=== PATIENT | female | born 1960 | race African-American/Black ===

== ENCOUNTER 2016-10-14 08:32 | Emergency (ER) | payer MEDICAID ==
[~2016-10-14] VITALS: Ht 162.6 cm; Wt 55.8 kg
[~2016-10-14 08:32] MED LIST: ALBUTEROL SULF8.5 GM INH; ARAVA10 MG PO; AZITHROMYCIN250 MG ORAL; BENADRYL25 MG PO; CLINDAMYCIN HC300 MG ORAL; CORTISONE14 GM TP; CYCLOBENZAPRINE10 MG ORAL; FOLIC ACID1 MG ORAL; KEFLEX500 MG ORAL; METHOTREXATE2.5 MG PO; NKM; NORCO 5-325 TA1 EACH ORAL; PLAQUENIL200 MG ORAL; QVAR7.3 GM INH; TYLENOL EXTRA500 MG ORAL; VALACYCLOVIR500 MG ORAL
[2016-10-14] MEDS ORDERED: NKM (08:46)
[2016-10-14 08:55] VITALS: BP 167/88
[2016-10-14] MEDS ORDERED: ACETAMINOPHEN-1 EAC1 ORAL (08:57)
[2016-10-14] MEDS ORDERED: COLACE100 MG ORAL (08:57)
[2016-10-14 09:00] VITALS: BP 167/88
[2016-10-14] MEDS ORDERED: Tylenol #3 tab (300mg/30mg) ORAL ONE (09:00)
--- NOTE | 2016-10-14 09:08 | Emergency Room Report ---
History of Present Illness General Chief Complaint: Pain Source: Patient Present Illness HPI 56YOF walk-in with pain to back of right shoulder s/p slip and fall 2 weeks ago. Despite repeated questioning, patient unable to provide specifics of how she fell/landed Denies open wounds, reduced ROM of right shoulder. Denies pain to right elbow, right hand, right wrist Just repeats that her shoulder hurts. States taking ibuprofen without much improvement Cant take "too much T4" or she gets constipated but is requesting [place] Allergies: Coded Allergies: ASPIRIN (Verified Allergy, 10/08/12) PENICILLINS (Verified Allergy, 10/08/12) Patient History Past Medical History: none Past Surgical History: other - Left shoulder replaceemnt Pertinent Family History: none Social History: Denies: smoking, alcohol use, drug use Now: No Immunizations: UTD Reviewed Nursing Documentation: PMH: Agreed, PSxH: Agreed Nursing Documentation-PMH Hx Asthma: Yes - bronchitis Review of Systems All Other Systems: negative except mentioned in HPI Physical Exam Vital Signs Date Time Temp Pulse Resp B/P (MAP) Pulse Ox O2 Delivery O2 Flow Rate FiO2 10/14/16 08:39 97.3 79 22 171/96 100 Room Air Sp02 EP Interpretation: reviewed, normal General Appearance: normal inspection, well appearing, no apparent distress, alert, GCS 15, non-toxic Head: normocephalic, atraumatic Eyes: bilateral eye PERRL, bilateral eye EOMI ENT: normal ENT inspection, hearing grossly normal, normal voice Neck: normal inspection, full range of motion, supple, no bony tend Respiratory: normal inspection, lungs clear, normal breath sounds, no respiratory distress, no retraction, no wheezing Cardiovascular #1: regular rate, rhythm, no edema Gastrointestinal: normal inspection, normal bowel sounds, non tender, soft, no guarding, no hernia Genitourinary: no CVA tenderness Musculoskeletal: normal inspection, back normal, normal range of motion, Collin' s Sign negative, other - Right shoulder: No obvious trauma or deformity. ROM intact. No ttp to right shoulder. 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, motor strength/tone normal, speech normal Psychiatric: normal inspection, judgement/insight normal, mood/affect normal Medical Decision Making Diagnostic Impression: Primary Impression: Chronic pain Qualified Codes: G89.29 - Other chronic pain ER Course Likely chronic pain Low suspicion for acute fracture or dislocation given no ttp, no obvious deformity, ROM intact ?narcotic seeking behavior T#3 given here Rx for same with colace PMD followup DC home Last Vital Signs Date Time Temp Pulse Resp B/P (MAP) Pulse Ox O2 Delivery O2 Flow Rate FiO2 10/14/16 08:39 97.3 79 22 171/96 100 Room Air Status: improved Disposition: HOME, SELF-CARE Condition: Improved Scripts Docusate Sodium* (COLACE*) 100 Mg Capsule 100 MG ORAL TWICE A DAY for 7 Days, #14 CAP Prov: ALKA TIMMONS M.D. 10/14/16 Acetaminophen With Codeine (T#3) (TYLENOL #3 TAB*) Y Tab 1 TAB ORAL Q8H Y for For Pain, #20 TAB Prov: ALKA TIMMONS M.D. 10/14/16 Patient Instructions: Musculoskeletal Pain ALKA TIMMONS M.D. Oct 14, 2016 09:08
== END 2016-10-14 09:18 | disposition home or self-care (01) ==
LOC: EMR 09:00
DX: G89.29 Other chronic pain (principal); M25.511 Pain in right shoulder; Z91.81 History of falling; Z88.0 Allergy status to penicillin; Z88.6 Allergy status to analgesic agent
CPT/HCPCS: 99284

== ENCOUNTER 2016-11-09 09:21 | Emergency (ER) | payer MEDICAID ==
[~2016-11-09] VITALS: Ht 160 cm; Wt 54.4 kg
[~2016-11-09 09:21] MED LIST changes: +ACETAMINOPHEN-1 EAC1 ORAL; +COLACE100 MG ORAL
[2016-11-09 10:05] VITALS: BP 147/79
[2016-11-09] MEDS ORDERED: TYLENOL EXTRA500 MG ORAL (11:19)
[2016-11-09 11:21] VITALS: BP 143/86
[2016-11-09 11:25] VITALS: BP 143/86
--- NOTE | 2016-11-09 11:40 | Emergency Room Report ---
History of Present Illness General Chief Complaint: Laceration Source: Patient Present Illness HPI 56-year-old female presents to ED with laceration over left eyebrow. States yesterday she tripped and fell. Denies LOC. Patient presents with laceration over left eyebrow. States tetanus is up-to-date. States pain is sharp, 8/10, nonradiating. Denies photophobia, blurry vision, nausea or vomiting. Denies neck pain. No other aggravating relieving factors. Denies any other system symptoms Allergies: Coded Allergies: ASPIRIN (Verified Allergy, 10/08/12) PENICILLINS (Verified Allergy, 10/08/12) Patient History Past Medical History: psych hx Past Surgical History: none Pertinent Family History: none Social History: Denies: smoking, alcohol use, drug use Now: No Immunizations: UTD Reviewed Nursing Documentation: PMH: Agreed, PSxH: Agreed Nursing Documentation-PMH Past Medical History: No History, Except For Hx Cardiac Problems: No - Lupus, Arthritis, Syphilis Hx Hypertension: No Hx Pacemaker: No Hx Asthma: Yes - Bronchitis Hx COPD: No Hx Diabetes: No Hx Cancer: No Hx Gastrointestinal Problems: No Hx Dialysis: No History Of Psychiatric Problem: Yes - Depression, Anxiety Hx Neurological Problems: No Hx Cerebrovascular Accident: No Hx Seizures: Yes Review of Systems All Other Systems: negative except mentioned in HPI Physical Exam Vital Signs Date Time Temp Pulse Resp B/P (MAP) Pulse Ox O2 Delivery O2 Flow Rate FiO2 11/09/16 09:30 97.7 91 14 142/84 98 Room Air Sp02 EP Interpretation: reviewed, normal General Appearance: no apparent distress, alert, GCS 15, non-toxic Head: normocephalic, other - 1cm superficial lacertion over L eyebrow ENT: hearing grossly normal, normal pharynx, no angioedema, normal voice Neck: normal inspection, no bony tend Respiratory: normal inspection Cardiovascular #1: normal inspection Gastrointestinal: normal inspection Rectal: deferred Genitourinary: no CVA tenderness Musculoskeletal: normal inspection Neurologic: alert, oriented x3, responsive, motor strength/tone normal, sensory intact, speech normal Psychiatric: normal inspection Skin: normal inspection Lymphatic: normal inspection Procedures Laceration/Wound Repair Laceration/Wound Repair : Consent: Verbal Wound Location: face Wound's Depth, Shape: superficial, linear Wound Explored: clean Betadine Prep?: No Wound Debrided: minimal Wound Repaired With: Dermabond Layer Closure?: No Sterile Dressing Applied?: Yes Splint Applied?: No Sling Applied?: No Patient Tolerated: Well Complications: None Medical Decision Making Diagnostic Impression: Primary Impression: Laceration ER Course Hospital Course 21-year-old M presents to ED s/p laceration above L eyebrow Clinical course Patient placed on stretcher. After initial history and physical I ordered Tylenol. Wound irrigated. Dermabond applied Diagnosis - laceration Stable and discharged to home with prescription for tylenol. wound Care instructions given. Followup with PMD. Return to ED if any signs of infection develop Last Vital Signs Date Time Temp Pulse Resp B/P (MAP) Pulse Ox O2 Delivery O2 Flow Rate FiO2 11/09/16 11:25 98.0 95 20 143/86 100 Room Air Status: improved Disposition: HOME, SELF-CARE Condition: Stable Scripts Acetaminophen* (TYLENOL EXTRA STRENGTH*) 500 Mg Tablet 500 MG ORAL Q8H Y for Prn Headache/Temp > 101, #30 TAB 0 Refills Prov: STEVE GRANDA M.D. 11/09/16 Patient Instructions: Laceration Care, Adult STEVE GRANDA M.D. Nov 09, 2016 11:40
== END 2016-11-09 12:00 | disposition home or self-care (01) ==
LOC: EMR 09:45
DX: S01.112A Laceration without foreign body of left eyelid and periocular area, initial encounter (principal); W01.0XXA Fall on same level from slipping, tripping and stumbling without subsequent striking against object, initial encounter; Y93.9 Activity, unspecified; Y92.9 Unspecified place or not applicable; Z88.6 Allergy status to analgesic agent; Z88.0 Allergy status to penicillin; M32.9 Systemic lupus erythematosus, unspecified; M19.90 Unspecified osteoarthritis, unspecified site; F41.9 Anxiety disorder, unspecified; F32.9 Major depressive disorder, single episode, unspecified
CPT/HCPCS: 12011; 99283; Z7502

== ENCOUNTER 2016-12-01 09:11 | Emergency (ER) | payer MEDICAID ==
[~2016-12-01] VITALS: Ht 160 cm; Wt 48.1 kg
--- NOTE | 2016-12-01 09:31 | Emergency Room Report ---
History of Present Illness General Chief Complaint: Flu Like Symptoms Source: Patient Present Illness HPI 56-year-old female, walked into the emergency room, homeless, presenting with 3 days of subjective fever, cough productive with green sputum, body aches, headache. Denies chest pain. No sick contacts or recent travel. Hasn't been hospitalized in the last 3 months. Allergies: Coded Allergies: ASPIRIN (Verified Allergy, 10/08/12) PENICILLINS (Verified Allergy, 10/08/12) Patient History Past Medical History: see triage record Past Surgical History: none Pertinent Family History: none Reviewed Nursing Documentation: PMH: Agreed, PSxH: Agreed Nursing Documentation-PMH Past Medical History: No History, Except For Hx Cardiac Problems: No - Lupus, Arthritis, Syphilis Hx Hypertension: Yes Hx Pacemaker: No Hx Asthma: Yes - Bronchitis Hx COPD: No Hx Diabetes: No Hx Cancer: No Hx Gastrointestinal Problems: No Hx Dialysis: No Hx Neurological Problems: No Hx Cerebrovascular Accident: No Hx Seizures: Yes Review of Systems All Other Systems: negative except mentioned in HPI Physical Exam Vital Signs Date Time Temp Pulse Resp B/P (MAP) Pulse Ox O2 Delivery O2 Flow Rate FiO2 12/01/16 09:16 98.1 112 26 148/82 100 Room Air Sp02 EP Interpretation: reviewed, normal General Appearance: alert, GCS 15, non-toxic, other - Middle aged female, appears fatigued however speaking complete sentences, nonrespiratory distress, Head: normocephalic, atraumatic Eyes: bilateral eye normal inspection, bilateral eye PERRL, bilateral eye EOMI ENT: normal ENT inspection, normal pharynx, normal voice, moist mucus membranes Neck: normal inspection, full range of motion, supple Respiratory: normal inspection, lungs clear, normal breath sounds, no respiratory distress, no retraction, no wheezing, speaking full sentences, chest symmetrical Cardiovascular #1: normal inspection, regular rate, rhythm, no edema, normal capillary refill Cardiovascular #2: 2+ radial (R), 2+ radial (L) Gastrointestinal: normal inspection, non tender, soft, non-distended, no guarding Musculoskeletal: normal inspection, back normal, normal range of motion, non- tender Neurologic: normal inspection, alert, oriented x3, responsive, 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 CXR obtained - L pneumonia got fluids tylenol 1 dose levaquin in ED VS continue to be stable Disposition: Patient is to be discharged home with a prescription of Levaquin Strict precautions discussed with patient on when to return to the emergency room including hemoptysis, high fevers, chills, SOB, chest pain which may indicate severe illness. Patient is to follow up with their primary care doctor within 5 days. Patient agrees with plan. Please note that this Emergency Department Report was dictated using [employer] attendant technology software, occasionally this can lead to erroneous entry secondary to interpretation by the dictation equipment.. Rhythm Strip EP Interpretation: Yes Rate: 77 Rhythm: NSR, no PVCs, no ectopy Chest X-ray CXR: Ordered: Yes 1 view Indication: Chest pain EP interpretation: Yes Interpretation: hyperinflated lungs, possible L sided infiltrate Impression: COPD, L sided pneumonia Electronically signed by Weston Madsen MD Laboratory Tests Test 12/01/16 10:00 12/01/16 11:00 White Blood Count 13.3 K/UL (4.8-10.8) H Red Blood Count 4.20 M/UL (4.20-5.40) Hemoglobin 12.7 G/DL (12.0-16.0) Hematocrit 40.1 % (37.0-47.0) Mean Corpuscular Volume 95 FL (80-99) Mean Corpuscular Hemoglobin 30.1 PG (27.0-31.0) Mean Corpuscular Hemoglobin Concent 31.5 G/DL (32.0-36.0) L Red Cell Distribution Width 11.7 % (11.6-14.8) Platelet Count 456 K/UL (150-450) H Mean Platelet Volume 7.0 FL (6.5-10.1) Neutrophils (%) (Auto) 80.1 % (45.0-75.0) H Lymphocytes (%) (Auto) 10.5 % (20.0-45.0) L Monocytes (%) (Auto) 8.2 % (1.0-10.0) Eosinophils (%) (Auto) 0.4 % (0.0-3.0) Basophils (%) (Auto) 0.8 % (0.0-2.0) Sodium Level 139 MMOL/L (136-145) Potassium Level 3.8 MMOL/L (3.5-5.1) Chloride Level 105 MMOL/L (98-107) Carbon Dioxide Level 26 MMOL/L (21-32) Anion Gap 9 (5-15) Blood Urea Nitrogen 14 mg/dL (7-18) Creatinine 1.0 MG/DL (0.55-1.30) Estimate Glomerular Filtration Rate > 60 mL/min (>60) Glucose Level 86 MG/DL (74-106) Calcium Level 9.3 MG/DL (8.5-10.1) Total Bilirubin 0.3 MG/DL (0.2-1.0) Aspartate Amino Transferase (AST) 18 U/L (15-37) Alanine Aminotransferase (ALT) 17 U/L (12-78) Alkaline Phosphatase 102 U/L (46-116) Total Protein 8.2 G/DL (6.4-8.2) Albumin 3.0 G/DL (3.4-5.0) L Globulin 5.2 g/dL Albumin/Globulin Ratio 0.6 (1.0-2.7) L Lipase 96 U/L (73-393) Urine Color Pending Urine Appearance Pending Urine pH Pending Urine Specific [place] Pending Urine Protein Pending Urine Glucose (UA) Pending Urine Ketones Pending Urine Occult Blood Pending Urine Nitrite Pending Urine Bilirubin Pending Urine Urobilinogen Pending Urine Leukocyte Esterase Pending Last Vital Signs Date Time Temp Pulse Resp B/P (MAP) Pulse Ox O2 Delivery O2 Flow Rate FiO2 12/01/16 09:16 98.1 112 26 148/82 100 Room Air Disposition: HOME, SELF-CARE Condition: Improved Scripts Levofloxacin* (LEVAQUIN*) 500 Mg Tablet 500 MG ORAL DAILY Y for 7, #7 TAB 0 Refills Prov: Weston Madsen M.D. 12/01/16 Weston Madsen M.D. Dec 01, 2016 09:31
[2016-12-01 10:03] VITALS: BP 142/81
[2016-12-01 10:17] LABS: BASOPHILS % (AUTO) 0.8 % (0.0-2.0); EOSINOPHILS % (AUTO) 0.4 % (0.0-3.0); LYMPHOCYTES % (AUTO) 10.5 % (20.0-45.0); MEAN CORPUSCULAR HEMOGLOBIN 30.1 PG (27.0-31.0); MEAN CORPUSCULAR HGB CONC 31.5 G/DL (32.0-36.0); MEAN CORPUSCULAR VOLUME 95 FL (80-99); MONOCYTES % (AUTO) 8.2 % (1.0-10.0); NEUTROPHILS % (AUTO) 80.1 % (45.0-75.0); PLATELET COUNT 456 K/UL (150-450); RED CELL DISTRIBUTION WIDTH 11.7 % (11.6-14.8); WHITE BLOOD COUNT 13.3 K/UL (4.8-10.8)
[2016-12-01 10:25] LABS: ALANINE AMINOTRANSFERASE 17 U/L (12-78); ALBUMIN/GLOBULIN RATIO 0.6 (1.0-2.7); ANION GAP 9 (5-15); ASPARTATE AMINO TRANSFERASE 18 U/L (15-37); CALCIUM 9.3 MG/DL (8.5-10.1); CARBON DIOXIDE 26 MMOL/L (21-32); CHLORIDE 105 MMOL/L (98-107); GLOMERULAR FILTRATION RATE > 60 mL/min (>60); LIPASE 96 U/L (73-393); POTASSIUM 3.8 MMOL/L (3.5-5.1); SODIUM 139 MMOL/L (136-145); TOTAL PROTEIN 8.2 G/DL (6.4-8.2)
[2016-12-01] MEDS ORDERED: LEVAQUIN500 MG ORAL (10:52)
[2016-12-01] MEDS ORDERED: Levofloxacin 500mg tab ORAL ONE (11:00)
[2016-12-01 11:17] LABS: APPEARANCE,URINE SLIGHTLY CLOUDY; KETONES,URINE NEGATIVE (NEGATIVE); LEUKOCYTE ESTERASE ,URINE 1+ (NEGATIVE); NITRITE,URINE NEGATIVE (NEGATIVE); PH,URINE 6.5 (4.5-8.0); PROTEIN,URINE 2+ (NEGATIVE); UROBILINOGEN,URINE 4 MG/DL (0.0-1.0)
[2016-12-01 11:30] LABS: BACTERIA,URINE FEW /HPF; SQUAMOUS EPITHELIAL CELL,UR FEW /LPF (NONE/OCC)
[2016-12-01 11:33] LABS: TRICHOMONAS,URINE FEW /HPF
[2016-12-01 11:34] VITALS: BP 154/82
[2016-12-01 11:35] VITALS: BP 154/82
--- NOTE | 2016-12-02 09:01 | Diagnostic Imaging Report ---
Indication: SOB Technique: One view of the chest Comparison: none Findings: There is infiltrate at the left lung base. There is a left shoulder hemiarthroplasty prosthesis. Right lung, bilateral pleural spaces are clear. Heart size is normal Impression: Left basilar infiltrate, likely pneumonia Other findings as noted This agrees with the findings describe in the electronic medical record by the ER physician
== END 2016-12-01 11:38 | disposition home or self-care (01) ==
LOC: EMR 09:33
DX: J18.9 Pneumonia, unspecified organism (principal); Z88.6 Allergy status to analgesic agent; Z88.0 Allergy status to penicillin; I10 Essential (primary) hypertension; J40 Bronchitis, not specified as acute or chronic; Z86.69 Personal history of other diseases of the nervous system and sense organs
CPT/HCPCS: 36415; 71010; 80053; 81003; 83690; 85025; 96360; 99284

== ENCOUNTER 2017-04-22 23:21 | Emergency (ER) | payer MEDICAID ==
[~2017-04-22] VITALS: Ht 157.5 cm; Wt 52.6 kg
[~2017-04-22 23:21] MED LIST changes: +LEVAQUIN500 MG ORAL
[2017-04-22 23:35] VITALS: BP 160/86
[2017-04-23 00:42] LABS: BASOPHILS % (AUTO) 1.1 % (0.0-2.0); EOSINOPHILS % (AUTO) 0.6 % (0.0-3.0); HEMATOCRIT 39.4 % (37.0-47.0); HEMOGLOBIN 12.8 G/DL (12.0-16.0); LYMPHOCYTES % (AUTO) 29.3 % (20.0-45.0); MEAN CORPUSCULAR VOLUME 93 FL (80-99); MONOCYTES % (AUTO) 7.7 % (1.0-10.0); NEUTROPHILS % (AUTO) 61.3 % (45.0-75.0); PLATELET COUNT 309 K/UL (150-450); RED BLOOD COUNT 4.23 M/UL (4.20-5.40); RED CELL DISTRIBUTION WIDTH 12.1 % (11.6-14.8); WHITE BLOOD COUNT 9.9 K/UL (4.8-10.8)
[2017-04-23 01:09] LABS: ANION GAP 5 mmol/L (5-15); BLOOD UREA NITROGEN 25 mg/dL (7-18); CALCIUM 9.5 MG/DL (8.5-10.1); CARBON DIOXIDE 30 MMOL/L (21-32); CHLORIDE 105 MMOL/L (98-107); CREATININE 1.4 MG/DL (0.55-1.30); SODIUM 140 MMOL/L (136-145)
[2017-04-23 01:23] LABS: ALANINE AMINOTRANSFERASE 19 U/L (12-78); ALBUMIN 3.4 G/DL (3.4-5.0); ALBUMIN/GLOBULIN RATIO 0.8 (1.0-2.7); ALKALINE PHOSPHATASE 131 U/L (46-116); ASPARTATE AMINO TRANSFERASE 18 U/L (15-37); BILIRUBIN,TOTAL 0.2 MG/DL (0.2-1.0); CKMB 1.8 NG/ML (0.0-3.6); CREATINE KINASE 193 U/L (26-308)
[2017-04-23] MEDS ORDERED: NORCO 5-325 TA1 EACH ORAL (01:44)
[2017-04-23] MEDS ORDERED: PREDNISONE20 MG ORAL (01:44)
[2017-04-23 01:50] VITALS: BP 160/86
--- NOTE | 2017-04-23 10:41 | Diagnostic Imaging Report ---
Indication: Dyspnea Comparison: 12/01/2016 A single view chest radiograph was obtained. Findings: Cardiomediastinal appearance is within normal limits for age. Aorta is mildly calcified. Pulmonary vascularity is appropriate. The diaphragmatic contour is smooth and costophrenic angles are sharp. No pleural effusions are identified. The bones are osteopenic. Left humeral prosthesis again noted. Impression: No acute findings
--- NOTE | 2017-05-04 16:48 | Cardiology Report ---
APPROVED REPORT EKG Measurement Heart [id number] Normal sinus rhythm Right atrial enlargement Septal infarct, age undetermined Abnormal ECG
== END 2017-04-23 01:50 | disposition home or self-care (01) ==
LOC: EMR 23:55
DX: M19.90 Unspecified osteoarthritis, unspecified site (principal); M54.6 Pain in thoracic spine; M25.511 Pain in right shoulder
CPT/HCPCS: 36415; 71045; 80053; 82550; 82553; 83880; 84484; 85025; 93005; 99283; J7512

== ENCOUNTER 2017-08-26 18:48 | Emergency (ER) | payer MEDICAID ==
[~2017-08-26] VITALS: Ht 160 cm; Wt 51.7 kg
[~2017-08-26 18:48] MED LIST changes: +PREDNISONE20 MG ORAL
[2017-08-26 19:29] VITALS: BP 166/85
--- NOTE | 2017-08-26 20:03 | Diagnostic Imaging Report ---
EXAM: CT Head Without Intravenous Contrast CLINICAL HISTORY: PAIN TECHNIQUE: Axial computed tomography images of the head/brain without intravenous contrast. CTDI is 70 mGy and DLP is 1298 mGy-cm. One or more of the following dose reduction techniques were used: automated exposure control, adjustment of the mA and/or kV according to patient size, use of iterative reconstruction technique. COMPARISON: No relevant prior studies available. FINDINGS: Brain: No acute intracranial hemorrhage or cortical ischemia. Chronic small vessel ischemic changes. Right frontal focal chronic encephalomalacia. Ventricles: Unremarkable. No ventriculomegaly. Bones/joints: Unremarkable. No acute fracture. Soft tissues: Left frontal scalp hematoma. Sinuses: Unremarkable as visualized. Mastoid air cells: Unremarkable as visualized. IMPRESSION: No acute intracranial hemorrhage or skull fracture.
--- NOTE | 2017-08-26 20:05 | Diagnostic Imaging Report ---
EXAM: CT Maxillofacial Without Intravenous Contrast CLINICAL HISTORY: PAIN TECHNIQUE: Axial computed tomography images of the face without intravenous contrast. CTDI is 28 mGy and DLP is 544 mGy-cm. One or more of the following dose reduction techniques were used: automated exposure control, adjustment of the mA and/or kV according to patient size, use of iterative reconstruction technique. COMPARISON: No relevant prior studies available. FINDINGS: Bones/joints: No acute fracture. Soft tissues: Left periorbital hematoma. Orbits: Intact globes. Sinuses: Unremarkable. IMPRESSION: 1. No acute fracture. 2. Left periorbital hematoma.
[2017-08-26] MEDS ORDERED: Tylenol #3 tab (300mg/30mg) ORAL ONE (20:15)
--- NOTE | 2017-08-26 20:45 | Emergency Room Report ---
History of Present Illness General Chief Complaint: Head Injury Present Illness HPI 56-year-old female presents to the emergency department complaining of pain, swelling and tenderness along with bruising to the left eyebrow area status post mechanical trip and fall. Patient states she is walking on the sidewalk when she tripped and fell forward. She denies LOC, or midline neck or back pain/ tenderness. Patient states that she hit the front of her knees bilaterally in addition to her forehead. Patient states that she sustained some abrasions to both knees and she is having bilateral knee pain that is 7 out of 10 in severity. Patient denies taking blood thinning medications she states that her accident occurred at approximately 2 PM and the swelling has progressed over her forehead. Pt. reports some pain with eye movements of the left eye. Patient denies nausea or vomiting she states that she took one Aleve which provided very little relief of her symptoms. Pt. reports swelling obstructs visual field but does not affect actual vision. Denies CP, Palpitations, AMS, dizziness, paresthesias, or a sudden severe headache. Allergies: Coded Allergies: ASPIRIN (Verified Allergy, 10/08/12) PENICILLINS (Verified Allergy, 10/08/12) Patient History Past Medical History: see triage record Past Surgical History: none Pertinent Family History: none Now: No Reviewed Nursing Documentation: PMH: Agreed; PSxH: Agreed Nursing Documentation-PMH Hx Cardiac Problems: No - Lupus, Arthritis, Syphilis Hx Hypertension: Yes Hx Pacemaker: No Hx Asthma: Yes - Bronchitis Hx COPD: No Hx Diabetes: No Hx Cancer: No Hx Gastrointestinal Problems: No Hx Dialysis: No Hx Neurological Problems: No Hx Cerebrovascular Accident: No Hx Seizures: Yes Review of Systems All Other Systems: negative except mentioned in HPI Physical Exam Vital Signs Date Time Temp Pulse Resp B/P (MAP) Pulse Ox O2 Delivery O2 Flow Rate FiO2 08/26/17 18:52 98.6 105 22 166/85 93 Room Air 98.6 Sp02 EP Interpretation: reviewed, normal General Appearance: no apparent distress, alert, GCS 15, non-toxic Head: normocephalic, other - large hematoma noted on the left eyebrow with swelling extending down into the upper lid. EOMI Eyes: bilateral eye visual acuity - 20/70 ENT: hearing grossly normal, normal voice, other - large hematoma over the left eye brow area with swelling extending into upper lid of left eye. EOMI. Neck: full range of motion, no bony tend Respiratory: lungs clear, normal breath sounds, speaking full sentences Cardiovascular #1: regular rate, rhythm Cardiovascular #2: 2+ dorsalis pedis (R) - post. tib., 2+ dorsalis pedis (L) - post. tib. Musculoskeletal: back normal, gait/station normal - ambulatory, normal range of motion, tender - TTP to left eyebrow area, and anterior knees bilaterally, superficial abrasions noted. FROM, no increased laxity. some lateral swelling noted to the left knee. Neurologic: alert, oriented x3, responsive, motor strength/tone normal, sensory intact, normal gait, speech normal, grossly normal Psychiatric: judgement/insight normal Skin: normal color, no rash, warm/dry, well hydrated, abrasions - superficial to anterior knees, no bleeding, not through all layers of dermis. Medical Decision Making PA Attestation Dr. Carver is my supervising Physician whom patient management has been discussed with. Diagnostic Impression: Primary Impression: Hematoma and contusion Additional Impressions: Knee abrasion Qualified Codes: S80.219A - Abrasion, unspecified knee, initial encounter Acute bilateral knee pain ER Course 56-year-old female presents to the emergency department complaining of pain, swelling and tenderness along with bruising to the left eyebrow area status post mechanical trip and fall. Patient states she is walking on the sidewalk when she tripped and fell forward. She denies LOC, or midline neck or back pain/ tenderness. Patient states that she hit the front of her knees bilaterally in addition to her forehead. Patient states that she sustained some abrasions to both knees and she is having bilateral knee pain that is 7 out of 10 in severity. Patient denies taking blood thinning medications she states that her accident occurred at approximately 2 PM and the swelling has progressed over her forehead. Pt. reports some pain with eye movements of the left eye. Patient denies nausea or vomiting she states that she took one Aleve which provided very little relief of her symptoms. Pt. reports swelling obstructs visual field but does not affect actual vision. Denies CP, Palpitations, AMS, dizziness, paresthesias, or a sudden severe headache. -Denies Loss of consciousness Ddx considered but are not limited to Fracture, dislocation, contusion, concussion Sprain/Strain/Spasm, hematoma Vital signs: are WNL, pt. is afebrile H&PE are most consistent with contusion, no evidence of focal neurological deficit, no loss of consciousness. ORDERS: CT Head Non Con & Facial bones: WNL only hematoma over left eye areal Per official radiology report- Please see report for specific details. -X-rays bilateral knees: unremarkable other than notable degenerative changes. ED INTERVENTIONS: -D/w Pt. and Pt sister red flag symptoms to keep an eye out for that would indicate prompt return to the ED. Sam wrap applied to the left knee. Pt. remains neurovascularly intact. - Pt. and responsible libertarian verbalize their understanding and agreement with proposed treatment plan. DISCHARGE: At this time pt. is stable for d/c to home. Will provide printed patient care instructions, and any necessary prescriptions. Care plan and follow up instructions have been discussed with the patient prior to discharge. Other X-Ray Diagnostic Results Other X-Ray Diagnostic Results #1: X-Ray ordered: Right Knee # of Views/Limited Vs Complete: 3 View Indication: Pain EP Interpretation: Yes PA Xray: Interpretation reviewed, by supervising MD, and agrees with findings. Interpretation: no dislocation, no soft tissue swelling, no fractures Impression: No acute disease Electronically Signed by: Anh Herrera PA-C Other X-Ray Diagnostic Results #2: X-Ray ordered: Left Knee # of Views/Limited Vs Complete: 3 View Indication: Pain EP Interpretation: Yes PA Xray: Interpretation reviewed, by supervising MD, and agrees with findings. Interpretation: no dislocation, no soft tissue swelling, no fractures Impression: No acute disease Electronically Signed by: Anh Herrera PA-C CT/MRI/US Diagnostic Results CT/MRI/US Diagnostic Results #1: Imaging Test Ordered: CT head no contrast Impression "No evidence of acute fracture, hemorrhage, or intracranial process "- Per official radiology report- Please see report for specific details. CT/MRI/US Diagnostic Results #2: Imaging Test Ordered: CT Facial bones Impression " no acute fractures" Per official radiology report- Please see report for specific details. Last Vital Signs Date Time Temp Pulse Resp B/P (MAP) Pulse Ox O2 Delivery O2 Flow Rate FiO2 08/26/17 19:29 98.6 89 22 166/85 93 Room Air 98.6 Disposition: HOME, SELF-CARE Condition: Stable Scripts Bacitracin/Polymyxin B Sulfate (BACITRACIN-POLYMYXIN OINTMENT) 28.35 Gm Oint...g. 1 APPLIC TP BID, #28.3 GM Prov: Anh Herrera 08/26/17 Acetaminophen* (TYLENOL EXTRA STRENGTH*) 500 Mg Tablet 500 MG ORAL Q6H, #20 TAB 0 Refills Prov: Anh Herrera 08/26/17 Referrals: [facility]ERR[facility] (PCP) Patient Instructions: Abrasion, [id number], Hematoma, [id number] Additional Instructions: Take medications as directed. Follow up with a Primary Care Provider in 3 days, even if your symptoms have resolved. --Please review list of primary care clinics, if you do not already have a primary care provider Return sooner to ED if new symptoms occur, or current symptoms become worse. - Please note that this Emergency Department Report was dictated using [employer] technology software, occasionally this can lead to erroneous entry secondary to interpretation by the dictation equipment. Anh Herrera Aug 26, 2017 20:45
[2017-08-26] MEDS ORDERED: TYLENOL EXTRA500 MG ORAL (20:47)
[2017-08-26] MEDS ORDERED: BACITRACIN-P28.35 GM TP (20:47)
--- NOTE | 2017-08-26 21:05 | Diagnostic Imaging Report ---
EXAM: XR Right Knee, 3 views CLINICAL HISTORY: PAIN TECHNIQUE: Three views of the right knee. COMPARISON: No relevant prior studies available. FINDINGS: Bones/joints: No acute displaced fracture or dislocation. Irregular sclerosis in the distal femoral metaphysis and proximal tibial metaphysis, which may be chronic, enchondromas, versus osteonecrosis. No significant joint effusion. Degenerative changes. Osteopenia. Soft tissues: Unremarkable. IMPRESSION: 1. No acute displaced fracture or dislocation. 2. Irregular sclerosis in the distal femoral metaphysis and proximal tibial metaphysis, which may be chronic, enchondromas, versus osteonecrosis.
--- NOTE | 2017-08-26 21:06 | Diagnostic Imaging Report ---
EXAM: XR Left Knee, 3 views CLINICAL HISTORY: PAIN TECHNIQUE: Three views of the left knee. COMPARISON: 07/16/2011. FINDINGS: Bones/joints: No acute displaced fracture or dislocation. Irregular sclerosis in the distal femoral metaphysis and proximal tibial metaphysis, which may be chronic, enchondromas, versus osteonecrosis. No significant joint effusion. Significant degenerative changes. Osteopenia. Soft tissues: Unremarkable. IMPRESSION: 1. No acute displaced fracture or dislocation. 2. Irregular sclerosis in the distal femoral metaphysis and proximal tibial metaphysis, which may be chronic, enchondromas, versus osteonecrosis.
[2017-08-26 21:18] VITALS: BP 129/78
== END 2017-08-26 21:18 | disposition home or self-care (01) ==
LOC: EMR 19:13
DX: S00.12XA Contusion of left eyelid and periocular area, initial encounter (principal); S80.212A Abrasion, left knee, initial encounter; S80.211A Abrasion, right knee, initial encounter; W01.0XXA Fall on same level from slipping, tripping and stumbling without subsequent striking against object, initial encounter; Y92.480 Sidewalk as the place of occurrence of the external cause; R51 Headache; I10 Essential (primary) hypertension; Z88.6 Allergy status to analgesic agent; Z88.0 Allergy status to penicillin
CPT/HCPCS: 70450; 70486; 99284

== ENCOUNTER 2017-10-29 23:59 | Inpatient (IN) | payer MEDICAID ==
[~2017-10-29] VITALS: Ht 157.5 cm; Wt 49.9 kg
[~2017-10-29 23:59] MED LIST changes: +BACITRACIN-P28.35 GM TP
[2017-10-30] VITALS (40 sets, daily range): BP systolic 103–186; BP diastolic 62–117
[2017-10-30 00:33] LABS: APPEARANCE,URINE CLEAR; BILIRUBIN, URINE NEGATIVE (NEGATIVE); COLOR,URINE PALE YELLOW; GLUCOSE, URINE (UA) 4+ (NEGATIVE); KETONES,URINE NEGATIVE (NEGATIVE); LEUKOCYTE ESTERASE ,URINE 1+ (NEGATIVE); NITRITE,URINE NEGATIVE (NEGATIVE); PH,URINE 7 (4.5-8.0); PROTEIN,URINE 3+ (NEGATIVE); UROBILINOGEN,URINE NORMAL MG/DL (0.0-1.0)
[2017-10-30 00:37] LABS: HEMOGLOBIN 13.2 G/DL (12.0-16.0); MEAN CORPUSCULAR VOLUME 98 FL (80-99); PLATELET COUNT 304 K/UL (150-450); RED CELL DISTRIBUTION WIDTH 12.4 % (11.6-14.8); WHITE BLOOD COUNT 9.3 K/UL (4.8-10.8)
[2017-10-30 00:38] LABS: INR 1.1 (0.9-1.1)
[2017-10-30 00:40] LABS: ANION GAP 14 mmol/L (5-15); BLOOD UREA NITROGEN 17 mg/dL (7-18); CALCIUM 9.1 MG/DL (8.5-10.1); CARBON DIOXIDE 22 MMOL/L (21-32); CHLORIDE 106 MMOL/L (98-107); CREATININE 1.7 MG/DL (0.55-1.30); POTASSIUM 3.6 MMOL/L (3.5-5.1); SODIUM 142 MMOL/L (136-145)
[2017-10-30 00:51] LABS: ALANINE AMINOTRANSFERASE 251 U/L (12-78); ALBUMIN 2.9 G/DL (3.4-5.0); ALBUMIN/GLOBULIN RATIO 0.7 (1.0-2.7); ALKALINE PHOSPHATASE 142 U/L (46-116); ASPARTATE AMINO TRANSFERASE 255 U/L (15-37); BILIRUBIN,TOTAL 0.1 MG/DL (0.2-1.0)
--- NOTE | 2017-10-30 00:55 | Emergency Room Report ---
History of Present Illness General Chief Complaint: CPR Source: EMS Present Illness HPI Hx. from paramedics, sister. Paramedics said patient not breathing, bradycardic, they could not intubate and they placed Scott airway. Epi given. Patient was slumped over in bathroom, could not breathe, food coming out of her mouth. PMH: sz otherwise hx. limited due to condition Allergies: Coded Allergies: ASPIRIN (Verified Allergy, Unknown, 10/30/17) PENICILLINS (Verified Allergy, Unknown, 10/30/17) UNABLE TO ASSESS (Unverified , 10/29/17) Patient History Limited by: medical condition Nursing Documentation-PMH Hx Cardiac Problems: No - Lupus, Arthritis, Syphilis Hx Hypertension: Yes Hx Pacemaker: No Hx Asthma: Yes - Bronchitis Hx COPD: No Hx Diabetes: No Hx Cancer: No Hx Gastrointestinal Problems: No Hx Dialysis: No Hx Neurological Problems: No Hx Cerebrovascular Accident: No Hx Seizures: Yes Review of Systems All Other Systems: limited Physical Exam Vital Signs Date Time Temp Pulse Resp B/P (MAP) Pulse Ox O2 Delivery O2 Flow Rate FiO2 10/30/17 00:09 116 23 Mechanical Ventilator 40 Head: normocephalic, atraumatic ENT: pharyngeal erythema, other - massive amounts food in airway, clearly some aspirated Neck: thyroid normal Respiratory: other - manual ventilation, Cardiovascular #1: regular rate, rhythm Gastrointestinal: normal inspection, normal bowel sounds Musculoskeletal: normal inspection Neurologic: other - unresponsive Psychiatric: mood/affect normal Skin: no rash Procedures Intubation Intubation : Consent: Emergent Intubation Method: orotracheal Tube Size (cm): 7.5 Medications: Etomidate, Succinylcholine Breath Sounds after Intubation: equal Intubation Complications: apparent aspiration Post Intubation Xray: Yes Attempts: Other Patient Tolerated: Well Complications: None Progress This was an exceedingly difficult intubation requiring multiple attempts with MAC 3 and glidoscope. Prior to RSI there was extensive amount of food material blocking the trachea. Had to be manually extracted with forceps. At all times we kept oxygenation 98-100%. When most of food material removed, I then did RSI and was able to successfully intubate. Definite aspiration. Medical Decision Making Diagnostic Impression: Primary Impression: Respiratory arrest Additional Impressions: Cocaine abuse Elevated transaminase measurement Aspiration into airway ER Course CRITICAL CARE NOTE: The patient was at risk for respiratory and cardiac failure and required aggressive intervention by me. Critical care time provided by me, excluding other separately billable procedures exceeded 35 minutes. This time included: Obtaining history from: patient, EMS, family Examination of the patient Development of treatment plan Ordering and reviewing diagnostic test results Discussion of treatment plan with PMD, family Coordinating care with nursing and respiratory therapy Supervising IV medications Multiple reassessments Discussion with the admitting physician Unstable for transfer; [facility] Dr. Miles. EKG Diagnostic Results EKG Time: 00:53 EP Interpretation: sinus tachy 122, biatrial enlarge, NSST Rate: tachycardiac ST Segments: no acute changes Rhythm Strip Diag. Results Rhythm Strip Time: 00:53 Rate: 113 Rhythm: no ectopy Chest X-Ray Diagnostic Results Chest X-Ray Diagnostic Results : Chest X-Ray Ordered: Yes # of Views/Limited/Complete: 1 View Indication: Shortness of Breath EP Interpretation: Yes Interpretation: no effusion, no pneumothorax, no acute cardiopulmonary disease, other - increased opacities left >right Impression: Other - ETT good position Last Vital Signs Date Time Temp Pulse Resp B/P (MAP) Pulse Ox O2 Delivery O2 Flow Rate FiO2 10/30/17 00:09 116 23 40 10/30/17 00:09 Mechanical Ventilator Disposition: ADMITTED INPATIENT Condition: Critical Alex Lopes M.D. Oct 30, 2017 00:55
[2017-10-30] MEDS ORDERED: cefTRIAXone 1 GM in NS 55 ML IVPB ONE (01:15)
--- NOTE | 2017-10-30 02:02 | Diagnostic Imaging Report ---
EXAM: CT Head Without Intravenous Contrast CLINICAL HISTORY: ALOC TECHNIQUE: Axial computed tomography images of the head/brain without intravenous contrast. CTDI is 0.15, 70.38 mGy and DLP is 1319 mGy-cm. One or more of the following dose reduction techniques were used: automated exposure control, adjustment of the mA and/or kV according to patient size, use of iterative reconstruction technique. COMPARISON: 08/26/17 FINDINGS: Brain: Areas of decreased density in the white matter which are nonspecific but are likely related to small vessel ischemic changes. Small area of encephalomalacia in the right frontal region. Small area of encephalomalacia in the region of the gasca radiata on the left. Small area of encephalomalacia in the cerebellum on the left. Old lacunar infarcts suspected in the thalami. No hemorrhage. Ventricles: Unremarkable. No ventriculomegaly. Bones/joints: Unremarkable. No acute fracture. Soft tissues: Unremarkable. Sinuses: Unremarkable as visualized. No acute sinusitis. Mastoid air cells: Unremarkable as visualized. No mastoid effusion. IMPRESSION: No CT evidence for acute intracranial abnormality. Probable small vessel ischemic changes in the white matter with small areas of encephalomalacia as described above.
--- NOTE | 2017-10-30 02:03 | Diagnostic Imaging Report ---
EXAM: XR Chest, 1 View CLINICAL HISTORY: CP TECHNIQUE: Frontal view of the chest. COMPARISON: 04/23/17. FINDINGS: Lungs: Increased hazy opacities in the lungs suggestive of edema and/or infiltrate, left greater than right. Pleural space: No plain film evidence for pneumothorax. Heart: Unremarkable. No cardiomegaly. Mediastinum: Unremarkable. Bones/joints: Left shoulder prosthesis. Degenerative changes of the acromioclavicular joints. Tubes, lines and devices: Endotracheal tube with tip approximately 3 cm above the pat. IMPRESSION: Increased hazy opacities in the lungs suggestive of edema and/or infiltrate, left greater than right.
[2017-10-30] MEDS ORDERED: levETIRAcetam 500mg/NS100ml 100 ML IVPB ONE (04:00)
[2017-10-30] MEDS ORDERED: LORazepam Inj 2mg/ml 1ml IV ONE (04:00)
[2017-10-30] MEDS ORDERED: LORazepam Inj 2mg/ml 1ml ONE ×2 (07:48→07:54)
[2017-10-30] MEDS: LORazepam Inj 2mg/ml 1ml IV PRN ×2 (07:59→09:28)
[2017-10-30] MEDS ORDERED: Albuterol/Ipratropium 3ml neb HHN PRN (08:00)
[2017-10-30] MEDS ORDERED: Nitroglycerin Subl 0.4mg tab SL PRN (08:00)
[2017-10-30] MEDS: D5 1/2NS 1,000 ML IV SCH ×2 (08:11→21:46)
--- NOTE | 2017-10-30 08:38 | Pulmonolgy Critical Care Note ---
Critical Care - Asmt/Plan Assessment/Plan: ASSESSMENT respiratory arrest acute hypoxemic respiratory failure requiring intubation aspiration into airways status epilepticus -resolved acute toxic metabolic encephalopathy ( due to status epileptics, resp failure and aspiration) possible aspiration pneumonia transaminitis SCOTT vs chronic renal insufficiency with proteinuria seizure disorder cocaine abuse HTN Lupus PLAN OF CARE ICU NPO IVF vent support, pulmonary toilet titrate settings prn daily CXR and ABG while intubated extubate when ready sputum cx empiric abx ID follows CT head negative for acute IC pathology Carotid Dupelx neuro eval started on Keppra and Dilantin IV IV Ativan prn seizures stopped monitor BP ECHO trend LFT, hepatitis panel ,abd US DVT prophylaxis monitor renal parameters, lytes, correct lytes prn, avoid nephrotoxic, possibly CRI given hx of lupus and proteinuria supportive care case discussed and evaluated by supervising physician Critical Care - Objective Last 24 Hour Vital Signs Date Time Temp Pulse Resp B/P (MAP) Pulse Ox O2 Delivery O2 Flow Rate FiO2 10/30/17 07:50 97.5 142 32 178/105 100 Mechanical Ventilator 40 97.5 10/30/17 07:19 40 10/30/17 07:19 149 32 40 10/30/17 06:30 142 29 178/105 100 Mechanical Ventilator 10/30/17 05:00 140 27 161/117 100 Mechanical Ventilator 10/30/17 04:30 128 18 40 10/30/17 04:00 120 22 164/96 100 Mechanical Ventilator 10/30/17 03:05 110 20 40 10/30/17 03:00 97.5 110 18 150/98 100 Mechanical Ventilator 97.5 10/30/17 02:00 112 21 151/93 100 Mechanical Ventilator 10/30/17 01:00 114 23 128/82 97 Mechanical Ventilator 10/30/17 00:47 114 20 40 10/30/17 00:30 97.2 111 28 128/82 98 Mechanical Ventilator 97.2 10/30/17 00:09 117 23 158/93 100 Mechanical Ventilator 10/30/17 00:09 116 23 40 10/30/17 00:09 116 23 Mechanical Ventilator 40 10/30/17 00:03 123 14 153/93 100 Ambu-Bag 10/30/17 00:00 97.2 126 20 186/92 96 Ambu-Bag 97.2 10/30/17 00:00 126 20 Endotracheal Tube Status: other - lethargic Condition: critical HEENT: atraumatic, other - OP with ET in palce, intact Lungs: rhonchi - few isolated rhonchi Heart: HR/BP stable Abdomen: soft, non-tender, active bowel sounds Extremities: no C/C/E Micro: Microbiology Date/Time Source Procedure Growth Status 10/30/17 07:15 Rectum Received Accucheck: 167 Critical Care - Subjective ROS Limited/Unobtainable: Yes Interval Events: continuos seizures this am IV Ativan prn given with short stop of seizures, which alter resumed neuro contacted started on IV Keppra and Dilantin status epilepticus resolved afebrile no leucocytosis intubated 2 to aspiration elevated LFT urine tox+ cocaine Condition: critical EKG Rhythm: Sinus Tachycardia FI02: 40 Vent Support Breath Rate: 14 Vent Support Mode: AC Vent Tidal Volume: 500 Sputum Amount: Moderate PIP: 14 Fluids: D51/2 NS at 75 I&O: Intake and Output 10/29/17 10/30/17 19:00 07:00 Intake Total 0 ml Output Total 1400 ml Balance -1400 ml Intake Oral 0 ml Output Urine Total 1400 ml ET-Tube: 7.5 ET Position: 23 Isi Uriostegui NP Oct 30, 2017 08:38
[2017-10-30] MEDS ORDERED: levETIRAcetam 500mg/NS100ml 100 ML IVPB SCH (09:00)
[2017-10-30] MEDS ORDERED: Aztreonam Inj 1 GM in D5W 55 ML IVPB SCH (10:00)
[2017-10-30] MEDS ORDERED: Vancomycin 750mg/NS 250ml IVPB SCH (11:00)
[2017-10-30] MEDS: LORazepam Inj 2mg/ml 1ml IVP PRN ×3 (11:14→14:11)
[2017-10-30] MEDS: Heparin 5000 units/ml inj SUBQ SCH ×2 (11:21→20:16)
--- NOTE | 2017-10-30 12:03 | General Progress Note ---
Assessment/Plan Assessment/Plan GI CONSULT Dictated Suspect shocked liver Await imaging. Follow LFT Thank you Lenny Beltran MD Subjective Allergies: Coded Allergies: ASPIRIN (Verified Allergy, Unknown, 10/30/17) PENICILLINS (Verified Allergy, Unknown, 10/30/17) UNABLE TO ASSESS (Unverified , 10/29/17) Objective Last 24 Hour Vital Signs Date Time Temp Pulse Resp B/P (MAP) Pulse Ox O2 Delivery O2 Flow Rate FiO2 10/30/17 10:00 99.3 133 20 113/81 (92) 100 99.3 10/30/17 09:10 139 23 40 10/30/17 09:00 141 27 146/103 (117) 100 10/30/17 08:03 140 10/30/17 08:00 Mechanical Ventilator 10/30/17 08:00 99.7 138 19 120/96 (104) 100 99.7 10/30/17 08:00 Endotracheal Tube 10/30/17 07:50 97.5 142 32 178/105 100 Mechanical Ventilator 40 97.5 10/30/17 07:45 156 10/30/17 07:30 146 27 154/102 (119) 100 10/30/17 07:19 40 10/30/17 07:19 149 32 40 10/30/17 06:30 142 29 178/105 100 Mechanical Ventilator 10/30/17 05:00 140 27 161/117 100 Mechanical Ventilator 10/30/17 04:30 128 18 40 10/30/17 04:00 120 22 164/96 100 Mechanical Ventilator 10/30/17 03:05 110 20 40 10/30/17 03:00 97.5 110 18 150/98 100 Mechanical Ventilator 97.5 10/30/17 02:00 112 21 151/93 100 Mechanical Ventilator 10/30/17 01:00 114 23 128/82 97 Mechanical Ventilator 10/30/17 00:47 114 20 40 10/30/17 00:30 97.2 111 28 128/82 98 Mechanical Ventilator 97.2 10/30/17 00:09 117 23 158/93 100 Mechanical Ventilator 10/30/17 00:09 116 23 40 10/30/17 00:09 116 23 Mechanical Ventilator 40 10/30/17 00:03 123 14 153/93 100 Ambu-Bag 10/30/17 00:00 97.2 126 20 186/92 96 Ambu-Bag 97.2 10/30/17 00:00 126 20 Endotracheal Tube Intake and Output 10/29/17 10/30/17 19:00 07:00 Intake Total 0 ml Output Total 1400 ml Balance -1400 ml Intake Oral 0 ml Output Urine Total 1400 ml # Voids 10 Laboratory Tests 10/30/17 00:00: Urine Color Pale yellow, Urine Appearance Clear, Urine pH 7, Urine Specific [place] 1.010, Urine Protein 3+H, Urine Glucose (UA) 4+H, Urine Ketones Negative , Urine Blood 3+H, Urine Nitrite Negative, Urine Bilirubin Negative, Urine Urobilinogen Normal, Urine Leukocyte Esterase 1+H, Urine RBC 20-30H, Urine WBC 5 -10H, Urine Squamous Epithelial Cells Occasional, Urine Bacteria Few 10/30/17 00:23: White Blood Count 9.3, Red Blood Count 4.40, Hemoglobin 13.2, Hematocrit 43.0, Mean Corpuscular Volume 98, Mean Corpuscular Hemoglobin 29.9, Mean Corpuscular Hemoglobin Concent 30.7L, Red Cell Distribution Width 12.4, Platelet Count 304, Mean Platelet Volume 6.4L, Neutrophils (%) (Auto) , Lymphocytes (%) (Auto) , Monocytes (%) (Auto) , Eosinophils (%) (Auto) , Basophils (%) (Auto) , Differential Total Cells Counted 100, Neutrophils % (Manual) 9L, Lymphocytes % ( Manual) 82H, Monocytes % (Manual) 7, Eosinophils % (Manual) 2, Basophils % ( Manual) 0, Band Neutrophils 0, Platelet Estimate Adequate, Platelet Morphology Normal, Prothrombin Time 11.1, Prothromb Time International Ratio 1.1, Sodium Level 142, Potassium Level 3.6, Chloride Level 106, Carbon Dioxide Level 22, Anion Gap 14, Blood Urea Nitrogen 17, Creatinine 1.7H, Estimat Glomerular Filtration Rate 37.6, Glucose Level 461H, Calcium Level 9.1, Total Bilirubin 0.1L, Aspartate Amino Transf (AST/SGOT) 255H, Alanine Aminotransferase (ALT/SGPT ) 251H, Alkaline Phosphatase 142H, Troponin I 0.002, Pro-B-Type Natriuretic Peptide 85, Total Protein 7.2, Albumin 2.9L, Globulin 4.3, Albumin/Globulin Ratio 0.7L, Urine Opiates Screen Negative, Urine Barbiturates Screen Negative, Phencyclidine (PCP) Screen Negative, Urine Amphetamines Screen Negative, Urine Benzodiazepines Screen Negative, Urine Cocaine Screen PositiveH, Urine Marijuana (THC) Screen Negative 10/30/17 01:30: Arterial Blood pH 7.317L, Arterial Blood Partial Pressure CO2 40.0, Arterial Blood Partial Pressure O2 95.3, Arterial Blood HCO3 20.0L, Arterial Blood Oxygen Saturation 96.5, Arterial Blood Base Excess -5.7, Aj Test Positive 10/30/17 03:44: Arterial Blood pH 7.340L, Arterial Blood Partial Pressure CO2 33.2L, Arterial Blood Partial Pressure O2 118.0H, Arterial Blood HCO3 17.7L, Arterial Blood Oxygen Saturation 98.1H, Arterial Blood Base Excess -6.9, Aj Test Positive Height (Feet): 5 Height (Inches): 2.00 Weight (Pounds): 110 Eidta Beltran MD Oct 30, 2017 12:03
[2017-10-30] MEDS: Midazolam/D5W 100ml 100 ML IVPB SCH (14:25)
--- NOTE | 2017-10-30 15:25 | Operative Note - PDOC ---
Operative Note Operative Note Date of Operation/Procedure: Oct 30, 2017 Pre-op Diagnosis: Intractable seizures, critical care Procedure: right subclavian central venous catheter insertion Post-op Diagnosis: same as pre-op Surgeon: juan Anesthesia: local Specimen: none Complications: none Condition: unstable Estimated Blood Loss: minimal Drains: none Implant(s) used?: No Indications for Procedure 57F found down transported to ED critical condition, intubated, IO placed, admitted to ICU. Intractable seizures on multiple medications. central venous access recommended and indicated. patient in critical condition, unstable, on vent support. Description of Procedure A time out was performed. The patient was placed in Trendelenburg position. RIGHT chest region was prepped and draped in sterile fashion using chlorhexidine scrub. Anesthesia was achieved with 1% lidocaine. The introducer needle was inserted approximately two centimeters lateral to the normal curvature of the patient's right clavicle. Venous blood was withdrawn on second pass. Syringe was removed and a guidewire was advanced into the introducer needle. A small incision was made at the skin surface with a scalpel and the introducer needle was exchanged for a dilator over the guidewire. After appropriate dilation was obtained, the dilator was exchanged over the wire for an Cordis central venous catheter. The wire was removed and the catheter was sutured in place. The patient tolerated the procedure without any hemodynamic compromise. At time of procedure completion, all ports aspirated and flushed properly. Line was sutured in place. Dressings applied. CXR ordered Ho Man Oct 30, 2017 15:25
--- NOTE | 2017-10-30 16:30 | Operative Note - PDOC ---
Operative Note Operative Note Date of Operation/Procedure: Oct 30, 2017 Pre-op Diagnosis: right pneumothorax Procedure: Right tube thoracostomy Post-op Diagnosis: same as pre-op Surgeon: juan Anesthesia: local Specimen: none Complications: none Condition: unstable Estimated Blood Loss: minimal Drains: other Implant(s) used?: No Indications for Procedure 57F critically ill female found down currently in ICU critical condition. Required central venous access and right subclavian line placed. post procedure CXR demonstrated right sided pneumothorax. discussed with family who were at bedside and in the waiting room regarding iatrogenic pneumothorax. recommended right tube thoracostomy. consent obtained. Description of Procedure patient made comfortable at bedside. time out performed. right chest wall prepped and draped in standard surgical fashion. inframammary area identified and 5/6th intercostal mid axillary site identified. local infiltrated and small skin incision made using provided scalpel. a throcar tube thoracostomy kit was used and 11f thoravent tube was placed without complication. tube dressing applied. tube placed to pleuravac suction. patient tolerated well. CXR obtained and pneumothorax improved. slight apical ptx still present. well repeat cxr in AM. patient tolerated procedure well. Ho Man Oct 30, 2017 16:30
[2017-10-30] MEDS: levETIRAcetam 1,000mg/NS100ml 100 ML IVPB SCH (16:57)
[2017-10-30] MEDS: Phenytoin 100 MG in NS 55 ML IVPB SCH (16:57)
[2017-10-30] MEDS: Acetaminophen 650 MG SUPP RECTAL PRN (16:59)
--- NOTE | 2017-10-30 17:37 | Cardiology Progress Note ---
Assessment/Plan Assessment/Plan The patient is seen and examined, full consult note will be dictated. Objective Last 24 Hour Vital Signs Date Time Temp Pulse Resp B/P (MAP) Pulse Ox O2 Delivery O2 Flow Rate FiO2 10/30/17 17:35 Mechanical Ventilator 10/30/17 17:00 129 16 130/89 (103) 100 10/30/17 16:59 100.6 10/30/17 16:43 100.6 100.6 10/30/17 16:30 137 19 113/70 (84) 99 10/30/17 16:00 132 18 113/70 (84) 97 10/30/17 16:00 136 10/30/17 16:00 40 10/30/17 16:00 Mechanical Ventilator 10/30/17 15:45 135 19 114/88 (97) 99 10/30/17 15:30 138 16 114/82 (93) 99 10/30/17 15:15 137 109/91 (97) 100 10/30/17 15:05 140 16 40 10/30/17 15:00 135 16 113/81 (92) 100 10/30/17 15:00 135 18 114/82 (93) 100 10/30/17 15:00 16 Mechanical Ventilator 40 10/30/17 14:45 141 17 133/90 (104) 100 10/30/17 14:30 142 17 133/90 (104) 100 10/30/17 14:25 18 Mechanical Ventilator 40 10/30/17 14:00 139 18 146/94 (111) 100 10/30/17 13:00 98.9 139 16 147/82 (103) 99 98.9 10/30/17 12:59 137 18 40 10/30/17 12:49 Mechanical Ventilator 10/30/17 12:00 129 16 126/77 (93) 99 10/30/17 11:01 138 17 40 10/30/17 11:00 127 16 103/79 (87) 100 10/30/17 10:00 99.3 133 20 113/81 (92) 100 99.3 10/30/17 09:10 139 23 40 10/30/17 09:00 141 27 146/103 (117) 100 10/30/17 08:03 140 10/30/17 08:00 Mechanical Ventilator 10/30/17 08:00 99.7 138 19 120/96 (104) 100 99.7 10/30/17 08:00 40 10/30/17 08:00 Mechanical Ventilator 10/30/17 08:00 Endotracheal Tube 10/30/17 07:50 97.5 142 32 178/105 100 Mechanical Ventilator 40 97.5 10/30/17 07:45 156 10/30/17 07:30 146 27 154/102 (119) 100 10/30/17 07:19 40 10/30/17 07:19 149 32 40 10/30/17 06:30 142 29 178/105 100 Mechanical Ventilator 10/30/17 05:00 140 27 161/117 100 Mechanical Ventilator 10/30/17 04:30 128 18 40 10/30/17 04:00 120 22 164/96 100 Mechanical Ventilator 10/30/17 03:05 110 20 40 10/30/17 03:00 97.5 110 18 150/98 100 Mechanical Ventilator 97.5 10/30/17 02:00 112 21 151/93 100 Mechanical Ventilator 10/30/17 01:00 114 23 128/82 97 Mechanical Ventilator 10/30/17 00:47 114 20 40 10/30/17 00:30 97.2 111 28 128/82 98 Mechanical Ventilator 97.2 10/30/17 00:09 117 23 158/93 100 Mechanical Ventilator 10/30/17 00:09 116 23 40 10/30/17 00:09 116 23 Mechanical Ventilator 40 10/30/17 00:03 123 14 153/93 100 Ambu-Bag 10/30/17 00:00 97.2 126 20 186/92 96 Ambu-Bag 97.2 10/30/17 00:00 126 20 Endotracheal Tube Intake and Output 10/29/17 10/30/17 19:00 07:00 Intake Total 0 ml Output Total 1400 ml Balance -1400 ml Intake Oral 0 ml Output Urine Total 1400 ml # Voids 10 Laboratory Tests Test 10/30/17 00:00 10/30/17 00:23 10/30/17 01:30 10/30/17 03:44 Urine Color Pale yellow Urine Appearance Clear Urine pH 7 (4.5-8.0) Urine Specific [place] 1.010 (1.005-1.035) Urine Protein 3+ (NEGATIVE) H Urine Glucose (UA) 4+ (NEGATIVE) H Urine Ketones Negative (NEGATIVE) Urine Blood 3+ (NEGATIVE) H Urine Nitrite Negative (NEGATIVE) Urine Bilirubin Negative (NEGATIVE) Urine Urobilinogen Normal MG/DL (0.0-1.0) Urine Leukocyte Esterase 1+ (NEGATIVE) H Urine RBC 20-30 /HPF (0 - 2) H Urine WBC 5-10 /HPF (0 - 2) H Urine Squamous Epithelial Cells Occasional /LPF Urine Bacteria Few /HPF (NONE) White Blood Count 9.3 K/UL (4.8-10.8) Red Blood Count 4.40 M/UL (4.20-5.40) Hemoglobin 13.2 G/DL (12.0-16.0) Hematocrit 43.0 % (37.0-47.0) Mean Corpuscular Volume 98 FL (80-99) Mean Corpuscular Hemoglobin 29.9 PG (27.0-31.0) Mean Corpuscular Hemoglobin Concent 30.7 G/DL (32.0-36.0) L Red Cell Distribution Width 12.4 % (11.6-14.8) Platelet Count 304 K/UL (150-450) Mean Platelet Volume 6.4 FL (6.5-10.1) L Neutrophils (%) (Auto) % (45.0-75.0) Lymphocytes (%) (Auto) % (20.0-45.0) Monocytes (%) (Auto) % (1.0-10.0) Eosinophils (%) (Auto) % (0.0-3.0) Basophils (%) (Auto) % (0.0-2.0) Differential Total Cells Counted 100 Neutrophils % (Manual) 9 % (45-75) L Lymphocytes % (Manual) 82 % (20-45) H Monocytes % (Manual) 7 % (1-10) Eosinophils % (Manual) 2 % (0-3) Basophils % (Manual) 0 % (0-2) Band Neutrophils 0 % (0-8) Platelet Estimate Adequate Platelet Morphology Normal Prothrombin Time 11.1 SEC (9.30-11.50) Prothromb Time International Ratio 1.1 (0.9-1.1) Sodium Level 142 MMOL/L (136-145) Potassium Level 3.6 MMOL/L (3.5-5.1) Chloride Level 106 MMOL/L (98-107) Carbon Dioxide Level 22 MMOL/L (21-32) Anion Gap 14 mmol/L (5-15) Blood Urea Nitrogen 17 mg/dL (7-18) Creatinine 1.7 MG/DL (0.55-1.30) H Estimat Glomerular Filtration Rate 37.6 mL/min (>60) Glucose Level 461 MG/DL (74-106) H Calcium Level 9.1 MG/DL (8.5-10.1) Total Bilirubin 0.1 MG/DL (0.2-1.0) L Aspartate Amino Transf (AST/SGOT) 255 U/L (15-37) H Alanine Aminotransferase (ALT/SGPT) 251 U/L (12-78) H Alkaline Phosphatase 142 U/L (46-116) H Troponin I 0.002 ng/mL (0.000-0.056) Pro-B-Type Natriuretic Peptide 85 pg/mL (0-125) Total Protein 7.2 G/DL (6.4-8.2) Albumin 2.9 G/DL (3.4-5.0) L Globulin 4.3 g/dL Albumin/Globulin Ratio 0.7 (1.0-2.7) L Urine Opiates Screen Negative (NEGATIVE) Urine Barbiturates Screen Negative (NEGATIVE) Phencyclidine (PCP) Screen Negative (NEGATIVE) Urine Amphetamines Screen Negative (NEGATIVE) Urine Benzodiazepines Screen Negative (NEGATIVE) Urine Cocaine Screen Positive (NEGATIVE) H Urine Marijuana (THC) Screen Negative (NEGATIVE) Arterial Blood pH 7.317 (7.350-7.450) 7.340 (7.350-7.450) Arterial Blood Partial Pressure CO2 40.0 mmHg (35.0-45.0) 33.2 mmHg (35.0-45.0) L Arterial Blood Partial Pressure O2 95.3 mmHg (75.0-100.0) 118.0 mmHg (75.0-100.0) H Arterial Blood HCO3 20.0 mmol/L (22.0-26.0) L 17.7 mmol/L (22.0-26.0) L Arterial Blood Oxygen Saturation 96.5 % (92.0-98.0) 98.1 % (92.0-98.0) H Arterial Blood Base Excess -5.7 -6.9 Aj Test Positive Positive Microbiology Date/Time Source Procedure Growth Status 10/30/17 07:15 Rectum Received Geovany Brown MD Oct 30, 2017 17:37
--- NOTE | 2017-10-30 17:39 | General Progress Note ---
Progress Note Progress Note [id number] full note dictated Stefani Shabazz MD Oct 30, 2017 17:39
[2017-10-30] MEDS: Aztreonam Inj 1 GM in D5W 55 ML IVPB SCH (17:59)
--- NOTE | 2017-10-30 18:37 | Cardiology Report ---
APPROVED REPORT EXAM: Two-dimensional and M-mode echocardiogram with Doppler and color Doppler. INDICATION LV FUNCTION M-Mode DIMENSIONS IVSd0.6 (0.7-1.1cm)Left Atrium (MM)1.9 (1.6-4.0cm) LVDd2.7 (3.5-5.6cm)Aortic Root2.4 (2.0-3.7cm) PWd1.4 (0.7-1.1cm)Aortic Cusp Exc.1.5 (1.5-2.0cm) IVSs1.1 cm LVDs1.9 (2.5-4.0cm) PWs1.8 cm Technically difficult study due to combative patient.Study performed durign tachycardia Normal left ventricular chamber size, systolic function and wall motion as well visualized Left ventricular ejection fraction estimated to be 60%. Mild left ventricular hypertrophy by 2-D. No evidence of pericardial effusion. All other cardiac chamber sizes are within normal limits. Focal aortic valve sclerosis with adequate cusp excursion. Thickened mitral valve leaflets with normal excursion. Mitral annulus and aortic root calcification. Pulmonic valve not well visualized. Normal tricuspid valve structure. IVC at normal size with physiologic collapse. A color flow and spectral Doppler study was performed and revealed: No aortic regurgitation. Trace mitral regurgitation. Mitral diastolic velocities suggest reduced left ventricular relaxation c/w mild LV diastolic dysfunction (Grade I ) Mild tricuspid regurgitation. Tricuspid systolic velocities suggests peak right ventricular systolic pressure of 35mmHg,
[2017-10-30 18:58] LABS: ANION GAP 13 mmol/L (5-15); BLOOD UREA NITROGEN 17 mg/dL (7-18); CALCIUM 8.9 MG/DL (8.5-10.1); CARBON DIOXIDE 22 MMOL/L (21-32); CHLORIDE 112 MMOL/L (98-107); CREATININE 1.1 MG/DL (0.55-1.30); POTASSIUM 3.6 MMOL/L (3.5-5.1); SODIUM 146 MMOL/L (136-145)
--- NOTE | 2017-10-30 19:00 | Consultation ---
DATE OF CONSULTATION: 10/30/2017 NOTE: INCOMPLETE DICTATION CARDIOLOGY CONSULTATION CONSULTING PHYSICIAN: Geovany Brown M.D. REFERRING PHYSICIAN: Josias Skinner D.O. REASON FOR CONSULTATION: Management of tachycardia. HISTORY OF PRESENT ILLNESS: The patient is a very unfortunate 57-year-old female, who presents to the [facility] by paramedics and a sister for shortness of breath and bradycardia. The patient in the emergency department had a very hard intubation. The patient was found to have food particles in the mouth. The patient was given epinephrine due to bradycardia in the emergency department. Apparently, she was slumped over in the bathroom and had difficulty breathing. In the emergency department, she was found to have cocaine in the urine. At the time of arrival to the emergency department, initial blood pressure . Geovany Brown M.D. DR: Doug JOB#: [id number] CC:
--- NOTE | 2017-10-30 19:15 | Consultation ---
DATE OF CONSULTATION: 10/30/2017 GASTROLOGY CONSULTATION CHIEF COMPLAINT: I was asked to see this patient by Dr. Josias Skinner for evaluation of elevated liver tests. HISTORY OF PRESENT ILLNESS: The patient is a debilitated 57-year-old woman, who is intubated and unable to provide any history. The patient was currently found slumped over in the bathroom with food coming out of her mouth in the state of poor respiratory status. The paramedics were called and she appeared not to be breathing and was bradycardic and placed the airway and brought in to the hospital where she was subsequently intubated. She is now in the intensive care unit in a critical condition. She is also having recurrent seizures, which is being treated with seizure medications. The patient's toxicology report is positive for cocaine. She also has elevated AST and ALT to 250 range. PAST MEDICAL HISTORY: Difficult to ascertain since the patient is intubated and unable to provide any history. FAMILY HISTORY: Unavailable. SOCIAL HISTORY: Unobtainable. REVIEW OF SYSTEMS: Unobtainable. PHYSICAL EXAMINATION: GENERAL: A thin woman, intubated in the intensive care unit. HEENT: Temporal wasting. NECK: Supple. CHEST: Reveals scattered rhonchi. CARDIOVASCULAR: Revealed a regular rhythm. ABDOMEN: Flat. EXTREMITIES: Revealed IV access trocar in the left tibia as well as some IV lines in the right upper extremity. IMAGING: Imaging studies of the head was negative with a CT scan and also chest x-ray showed increased hazy opacities in the lungs. ASSESSMENT: This patient presents with abnormal liver tests of unclear etiology. The patient has had a recent respiratory arrest and significant cardiopulmonary stress and therefore, shock liver would be high in a differential. The patient should have imaging of the liver as well as routine hepatitis serologies, but at this point, I would follow the liver tests. The patient has been placed on Dilantin, which can affect liver function. Therefore, her liver tests should be followed very closely. Should there be further significant rise in the liver test, further evaluation may be necessary. The patient should be stabilized with respect to her procedures and once stabilized then she can undergo a nasogastric tube feeding until her respiratory status has been corrected. She will obviously require intensive care unit care and multidisciplinary interventions. RECOMMENDATIONS: Per above discussion and per orders written in the chart. Thank you for asking me to participate in the care of this patient. Edita Beltran M.D. DR: JOLENE JOB#: [id number] CC: HOSSEIN
--- NOTE | 2017-10-30 19:15 | History and Physical Report ---
DATE OF ADMISSION: 10/30/2017 TIME SEEN: 8 a.m. ATTENDING PHYSICIAN: Josias Skinner D.O. CONSULTANTS: 1. Evan Purcell M.D. 2. Freddy Howe M.D. 3. Geovany Brown M.D. 4. Gunner Lester M.D. CHIEF COMPLAINT: Respiratory failure, cocaine abuse, and seizure. BRIEF HISTORY: The patient is a 57-year-old female, presents to [place] [facility] last night. Lethargy was found and went into respiratory failure. The patient was intubated and sent to ER and on route to ER, the patient had seizure. Currently, intubated, sedated, and lethargic in ICU. REVIEW OF SYSTEMS: Unavailable. History obtained from chart. PAST MEDICAL HISTORY: Includes seizure, drug abuse, arthritis, chronic pain. PAST SURGICAL HISTORY: Unknown. MEDICATIONS: Include heparin, albuterol, nitroglycerin, Tylenol, morphine, Zofran, lorazepam, and ceftriaxone. ALLERGIES: Aspirin and penicillin. SOCIAL HISTORY: Unable to obtain secondary to the patient's condition. PHYSICAL EXAMINATION: GENERAL: Intubated, sedated, and lethargic in ICU. VITAL SIGNS: Show temperature is 97 degrees, pulse 142, respirations 32, and blood pressure 178/105. CARDIOVASCULAR: No murmur. LUNGS: Poor exchange. ABDOMEN: Bowel sounds distant. EXTREMITIES: Show no cyanosis or edema. NEUROLOGIC: The patient is flaccid in bed, not following directions. LABORATORY AND DIAGNOSTIC DATA: Show CBC is normal. BMP shows creatinine 1.7 and glucose 461. AST 255 and ALT 251. Albumin 2.9. Troponin 0.002. INR is 1.1. Urine toxicology positive for cocaine. Urinalysis, 1+ leukocyte esterase. ASSESSMENT: 1. Respiratory failure. 2. Cocaine abuse. 3. Renal insufficiency. 4. Urinary tract infection. 5. Malnutrition. 6. Seizure. 7. Hypertension. 8. Elevated liver function tests. 9. Chronic pain. 10. Arthritis. PLAN: 1. Continue previous medications. 2. Vent per Pulmonary. 3. Antibiotics per Infectious Disease. 4. Blood pressure, blood sugar, and seizure control. 5. Dietary followup. 6. Detox. 7. We will continue to follow the patient. 8. CBC and BMP in the morning. Josias Skinner D.O. DR: Quincy JOB#: [id number] CC:
[2017-10-30] MEDS: Dyna-Hex 2% Top Sol 2oz TOPIC SCH (20:15)
[2017-10-31] VITALS (45 sets, daily range): BP systolic 109–172; BP diastolic 39–116
[2017-10-31] MEDS: levETIRAcetam 1,000mg/NS100ml 100 ML IVPB SCH ×3 (00:49→16:35)
--- NOTE | 2017-10-31 01:15 | Consultation ---
DATE OF CONSULTATION: 10/30/2017 CARDIOLOGY CONSULTATION CONSULTING PHYSICIAN: Geovany Brown M.D. REFERRING PHYSICIAN: Josias Skinner D.O. REASON FOR CONSULTATION: Management of tachycardia. HISTORY OF PRESENT ILLNESS: The patient is a very unfortunate 57-year-old female, who was brought in by paramedics for evaluation of shortness of breath and tachycardia. Apparently, the patient was found to be slumped over in the bathroom by sister with difficulty breathing and food coming out of her mouth. In the emergency department, the patient could not be intubated. Scott airway was placed. Epinephrine was given for bradycardia. Initial recorded blood pressure during Ambu bag was 186/92 mmHg and heart rate of 126. The patient was admitted to intensive care unit for evaluation and management of acute respiratory failure. Initial 12-lead electrocardiogram done in the emergency department, shows sinus tachycardia at the rate of 122 with right atrial enlargement, but no acute ST and T-wave abnormalities. The patient was also found to have positive cocaine in the urine. Initial chest x-ray was significant for increased hazy opacities in the lungs suggestive of edema or infiltration, left greater than the right, cardiac silhouette was small. Cardiology consultation was made at the request of Dr. Skinner for evaluation and management of respiratory distress and tachycardia. PAST MEDICAL HISTORY: Includes history of hypertension, history of lupus erythematosus, history of arthritis, history of syphilis, history of bronchitis, and history of seizure disorder. PAST SURGICAL HISTORY: None. MEDICATIONS: List of medications at home includes acetaminophen 500 mg q.6 hours p.r.n. temperature above 100.5, albuterol 2 puffs q.4 hours, bacitracin-polymyxin ointment 1 application twice daily, Qvar 40 two puffs inhaler twice daily, Keflex 500 mg q.6 hours, Flexeril 10 mg three times a day, Colace 100 mg twice a day, [place] 5/325 mg one tablet q.4 h. p.r.n. pain, Levaquin 500 mg daily, prednisone 40 mg daily, and Valtrex 1000 mg two times a day. ALLERGIES: Aspirin and penicillin. REVIEW OF SYSTEMS: A 12-system review done is essentially negative except what is mentioned in the history of present illness. This was done by the emergency department. Currently, the patient is intubated and not providing any history. SOCIAL HISTORY: The patient is a cocaine user. I do not have any information regarding alcohol or tobacco. PHYSICAL EXAMINATION: VITAL SIGNS: Blood pressure again on arrival to the hospital was 186/92, pulse of 126, temperature 97.2 degrees Fahrenheit, respirations of 20, and O2 saturation of 96 on Ambu-bag, now on mechanical ventilator at 100%. GENERAL: The patient is a very unfortunate 57-year-old lady, who is intubated. HEENT: Atraumatic and normocephalic. Anicteric. Pupils are equal, round, and reactive to light and accommodation. NECK: JVP cannot be assessed due to intubation. Diminished breath sounds in both bases. CARDIOVASCULAR: Normal S1, S2. Tachycardic. No murmurs, gallops, or rubs. ABDOMEN: Soft, nontender, and nondistended. Positive bowel sounds. EXTREMITIES: No evidence of edema, clubbing, or cyanosis. LABORATORY FINDINGS: WBC 9.3, hemoglobin 13.2, hematocrit of 43.0, and platelet count 304,000. Chemistry shows sodium 142, potassium 3.6, chloride 106, bicarbonate 22, BUN of 17, creatinine 1.7, and glucose 461. Calcium is 9.1. Troponin I is 0.002. ProBNP was 85. ASSESSMENT AND PLAN: This is a very unfortunate 57-year-old lady, who is seen in Cardiology consultation. 1. Sinus tachycardia. This could be secondary to cocaine intoxication or due to aspiration pneumonia. At this time, given the patient's impending sepsis, I would continue with hydration, pain control, and temperature control. If this gets persistent and the patient's blood pressure is stable, we can start the patient on very low dose of Cardizem. Avoid beta-manuel due to unprotected effects of receptors, which can cause more vasoconstriction. 2. Normal left ventricular systolic function with left ventricular ejection fraction of approximately 55%. 3. Mild pulmonary hypertension with right ventricular systolic pressure measured at 42 mmHg. 4. History of mild aortic regurgitation. Overall time spent in the intensive care unit of [facility] reviewing the old records, providing plan of care, and discussing with the nursing staff and the primary care physician was over 50 minutes. I would like to thank, Dr. Skinner, for allowing me to participate in care of this patient. Geovany Brown M.D. DR: NERISSA JOB#: [id number] CC:
[2017-10-31] MEDS: Aztreonam Inj 1 GM in D5W 55 ML IVPB SCH ×2 (01:42→10:30)
[2017-10-31] MEDS: Midazolam/D5W 100ml 100 ML IVPB SCH ×2 (03:09→22:17)
--- NOTE | 2017-10-31 05:00 | Consultation ---
DATE OF CONSULTATION: 10/30/2017 NEPHROLOGY CONSULTATION CONSULTING PHYSICIAN: Stefani Shabazz M.D. REFERRING PHYSICIAN: Josias Skinner D.O. REASON FOR CONSULTATION: Acute renal failure. HISTORY OF PRESENT ILLNESS: The patient is an unfortunate 57-year-old female with a past medical history significant for history of hypertension, history of seizure disorder, has not been taking her seizure medication for the past few years since the seizure was under control. Apparently, the patient was at home with her sister. The patient was found down in the bathroom with shaking movement. Apparently, the paramedics were not able to intubate her at the scene due to food particle that was found in her throat, so the patient was brought into the emergency room. In the ER, the patient continued to have the seizure, intubation was done. The patient was admitted in the ICU, found to have a creatinine of 1.7. I was called for management of renal disease and electrolyte imbalance. PAST MEDICAL HISTORY: Including, 1. History of hypertension. 2. History of bronchitis. 3. History of seizure disorder. MEDICATIONS: Medications was reviewed. SOCIAL HISTORY: There is unknown history of tobacco, alcohol, or drug use. FAMILY HISTORY: Noncontributory. REVIEW OF SYSTEMS: Unable to obtain due to the patient's condition and mental status. PHYSICAL EXAMINATION: VITAL SIGNS: The patient has a temperature of 98, blood pressure of 120/70, pulse rate of 80, and respiratory rate of 18. HEAD AND NECK: No JVP. No LAD. No thyromegaly. Extraocular movement intact. Pupils are reactive to light and accommodation. LUNGS: Decreased breathing sounds on the right. Apparently, the patient received IJ placement this morning and later on patient developed a pneumothorax on the right side. ABDOMEN: Soft, nontender, and nondistended. EXTREMITIES: No edema. No clubbing. No cyanosis. The patient has jerking movement in upper and lower extremity. LABORATORY AND DIAGNOSTIC DATA: Current lab values revealed sodium 142, potassium 3.6, 106 chloride, 22 bicarbonate, BUN of 17, creatinine of 1.7 and calcium of 9.7. AST of 265, ALT of 261, and alkaline phosphatase of 142. UA revealed a specific gravity of 1.010, protein 3+, glucose 4+, wbc of 5 to 10, and rbc of 20 to 30. CBC revealed WBC count of 9, hemoglobin of 13, hematocrit of 43, and platelet count of 304,000. ASSESSMENT: 1. Acute renal failure. The etiology of acute renal failure including acute tubular necrosis due to unstable hemodynamics. 2. Chronic kidney disease due to hypertensive nephrosclerosis. 3. Aspiration pneumonia. 4. Sepsis. 5. . 6. Shock liver. 7. Acute respiratory failure. PLAN: Plan for the patient to obtain a random urine protein-creatinine ratio to calculate the proteinuria. Check the urine sodium and creatinine to calculate fractional excretion of sodium. Ultrasound of the kidney to evaluate the kidney signs, monitor renal function and electrolytes closely. Replace electrolytes as needed. Again, I would like to thank, Dr. Josias Skinner, for allowing me to participate in the care of this patient. Stefani Shabazz M.D. DR: AYAN JOB#: [id number] CC:
[2017-10-31 06:20] LABS: BASOPHILS % (AUTO) 0.7 % (0.0-2.0); EOSINOPHILS % (AUTO) 0.1 % (0.0-3.0); HEMATOCRIT 38.7 % (37.0-47.0); HEMOGLOBIN 12.3 G/DL (12.0-16.0); LYMPHOCYTES % (AUTO) 14.6 % (20.0-45.0); MEAN CORPUSCULAR VOLUME 92 FL (80-99); MONOCYTES % (AUTO) 5.7 % (1.0-10.0); NEUTROPHILS % (AUTO) 78.9 % (45.0-75.0); PLATELET COUNT 322 K/UL (150-450); RED BLOOD COUNT 4.23 M/UL (4.20-5.40); WHITE BLOOD COUNT 17.6 K/UL (4.8-10.8)
[2017-10-31 06:26] LABS: INR 1.1 (0.9-1.1)
[2017-10-31 06:28] LABS: ALANINE AMINOTRANSFERASE 159 U/L (12-78); ALBUMIN 2.8 G/DL (3.4-5.0); ALBUMIN/GLOBULIN RATIO 0.7 (1.0-2.7); ALKALINE PHOSPHATASE 111 U/L (46-116); ANION GAP 10 mmol/L (5-15); ASPARTATE AMINO TRANSFERASE 125 U/L (15-37); BILIRUBIN,TOTAL 0.4 MG/DL (0.2-1.0); BLOOD UREA NITROGEN 13 mg/dL (7-18); CALCIUM 8.7 MG/DL (8.5-10.1); CARBON DIOXIDE 23 MMOL/L (21-32); CHLORIDE 109 MMOL/L (98-107); CREATININE 1.2 MG/DL (0.55-1.30); PHOSPHORUS 1.8 MG/DL (2.5-4.9); POTASSIUM 3.1 MMOL/L (3.5-5.1); SODIUM 142 MMOL/L (136-145)
[2017-10-31 06:53] LABS: ALANINE AMINOTRANSFERASE 161 U/L (12-78); ALBUMIN 2.7 G/DL (3.4-5.0); ALKALINE PHOSPHATASE 112 U/L (46-116); ASPARTATE AMINO TRANSFERASE 128 U/L (15-37); BILIRUBIN,DIRECT < 0.1 MG/DL (0.0-0.3); BILIRUBIN,TOTAL 0.4 MG/DL (0.2-1.0); LACTATE DEHYDROGENASE 427 U/L (81-234)
[2017-10-31] MEDS: Phenytoin 100 MG in NS 55 ML IVPB SCH ×5 (08:50→23:58)
--- NOTE | 2017-10-31 09:07 | Nephrology Progress Note ---
Assessment/Plan Assessment 1. Acute renal failure. The etiology of acute renal failure including acute tubular necrosis due to unstable hemodynamics. 2. Chronic kidney disease due to hypertensive nephrosclerosis. 3. Aspiration pneumonia. 4. Sepsis. 5. hypokalemia 6. Shock liver. 7. Acute respiratory failure. Plan plan change ivf to [id number] replace k monitoring renal function and urine out put avoid NSAID Subjective ROS Limited/Unobtainable: Yes Subjective continue to be in icu setting intubated had one more episode of sz over night unresponsive Objective Objective Last 24 Hour Vital Signs Date Time Temp Pulse Resp B/P (MAP) Pulse Ox O2 Delivery O2 Flow Rate FiO2 10/31/17 08:30 122 16 140/82 (101) 100 10/31/17 08:00 99.8 125 17 160/89 (112) 100 99.8 10/31/17 08:00 30 10/31/17 07:30 127 16 157/96 (116) 100 10/31/17 07:10 127 16 40 10/31/17 07:00 128 16 146/89 (108) 100 10/31/17 06:00 131 18 142/87 (105) 100 10/31/17 06:00 16 Endotracheal Tube 40 10/31/17 05:30 135 18 172/90 (117) 100 10/31/17 05:00 16 Endotracheal Tube 40 10/31/17 05:00 135 17 163/83 (109) 100 10/31/17 04:56 99.6 10/31/17 04:51 136 19 40 10/31/17 04:30 132 15 134/90 (105) 100 10/31/17 04:00 139 10/31/17 04:00 40 10/31/17 04:00 16 Endotracheal Tube 40 10/31/17 04:00 99.6 130 15 121/80 (94) 100 99.6 10/31/17 04:00 Mechanical Ventilator 10/31/17 03:30 122 15 127/80 (96) 100 10/31/17 03:12 123 16 40 10/31/17 03:09 16 Mechanical Ventilator 40 10/31/17 03:00 123 15 151/80 (103) 100 10/31/17 03:00 16 Endotracheal Tube 40 10/31/17 02:30 122 15 139/75 (96) 100 10/31/17 02:00 123 15 109/63 (78) 100 10/31/17 02:00 15 Mechanical Ventilator 40 10/31/17 01:30 114 16 40 10/31/17 01:30 124 16 120/74 (89) 100 10/31/17 01:00 124 14 133/73 (93) 100 10/31/17 01:00 14 Endotracheal Tube 40 10/31/17 00:30 115 14 148/116 (127) 100 10/31/17 00:00 Mechanical Ventilator 10/31/17 00:00 14 Endotracheal Tube 40 10/31/17 00:00 98.3 114 14 128/72 (90) 100 98.3 10/31/17 00:00 40 10/30/17 23:30 115 16 121/76 (91) 100 10/30/17 23:18 115 16 40 10/30/17 23:00 116 16 122/80 (94) 100 10/30/17 23:00 14 Endotracheal Tube 40 10/30/17 22:30 116 16 122/80 (94) 100 10/30/17 22:00 116 16 124/82 (96) 100 10/30/17 22:00 14 Endotracheal Tube 40 10/30/17 21:30 115 16 119/76 (90) 100 10/30/17 21:01 115 16 40 10/30/17 21:00 115 16 124/80 (95) 100 10/30/17 21:00 14 Endotracheal Tube 40 10/30/17 20:30 115 16 121/76 (91) 100 10/30/17 20:00 98.9 117 16 108/78 (88) 100 98.9 10/30/17 20:00 40 10/30/17 20:00 Mechanical Ventilator 10/30/17 20:00 14 Endotracheal Tube 40 10/30/17 20:00 117 10/30/17 19:30 117 16 40 10/30/17 19:30 118 16 117/80 (92) 100 10/30/17 19:00 98.9 117 16 128/62 (84) 100 98.9 10/30/17 19:00 16 Endotracheal Tube 40 10/30/17 18:00 119 16 152/78 (102) 100 10/30/17 17:45 99.9 120 16 111/77 (88) 100 99.9 10/30/17 17:35 Mechanical Ventilator 10/30/17 17:30 121 16 134/87 (103) 100 10/30/17 17:29 99.9 10/30/17 17:17 122 16 40 10/30/17 17:00 129 16 130/89 (103) 100 10/30/17 16:59 100.6 10/30/17 16:43 100.6 100.6 10/30/17 16:30 137 19 113/70 (84) 99 10/30/17 16:00 132 18 113/70 (84) 97 10/30/17 16:00 136 10/30/17 16:00 40 10/30/17 16:00 Mechanical Ventilator 10/30/17 15:45 135 19 114/88 (97) 99 10/30/17 15:30 138 16 114/82 (93) 99 10/30/17 15:15 137 109/91 (97) 100 10/30/17 15:05 140 16 40 10/30/17 15:00 135 16 113/81 (92) 100 10/30/17 15:00 135 18 114/82 (93) 100 10/30/17 15:00 16 Mechanical Ventilator 40 10/30/17 14:45 141 17 133/90 (104) 100 10/30/17 14:30 142 17 133/90 (104) 100 10/30/17 14:25 18 Mechanical Ventilator 40 10/30/17 14:00 139 18 146/94 (111) 100 10/30/17 13:00 98.9 139 16 147/82 (103) 99 98.9 10/30/17 12:59 137 18 40 10/30/17 12:49 Mechanical Ventilator 10/30/17 12:00 129 16 126/77 (93) 99 10/30/17 11:01 138 17 40 10/30/17 11:00 127 16 103/79 (87) 100 10/30/17 10:00 99.3 133 20 113/81 (92) 100 99.3 10/30/17 09:10 139 23 40 Intake and Output 10/30/17 10/31/17 19:00 07:00 Intake Total 1885.334 ml 1179 ml Output Total 155 ml 370 ml Balance 1730.334 ml 809 ml IV Total 1885.334 ml 1179 ml Output Urine Total 155 ml 370 ml # Voids 60 # Bowel Movements 5 1 Laboratory Tests 10/30/17 18:00: Lactic Acid Level 1.60 10/30/17 18:07: Sodium Level 146H, Potassium Level 3.6, Chloride Level 112H, Carbon Dioxide Level 22, Anion Gap 13, Blood Urea Nitrogen 17, Creatinine 1.1, Estimat Glomerular Filtration Rate > 60, Glucose Level 118#H, Calcium Level 8.9, Magnesium Level 1.8, Ammonia 21 10/30/17 22:10: Urine Eosinophils None seen, Urine Random Creatinine [Pending], Urine Random Microalbumin [Pending], Urine Random Total Protein 182H, Urine Random Sodium 44 , Urine Creatinine 255.6H, Urine Microalbumin/Creatinine Ratio [Pending] 10/31/17 05:00: Sodium Level 142, Potassium Level 3.1L, Chloride Level 109H, Carbon Dioxide Level 23, Anion Gap 10, Blood Urea Nitrogen 13, Creatinine 1.2, Estimat Glomerular Filtration Rate 56.1, Glucose Level 188H, Calcium Level 8.7, Magnesium Level 1.6L, White Blood Count 17.6#H, Red Blood Count 4.23, Hemoglobin 12.3, Hematocrit 38.7, Mean Corpuscular Volume 92, Mean Corpuscular Hemoglobin 29.1, Mean Corpuscular Hemoglobin Concent 31.7L, Red Cell Distribution Width 12.0, Platelet Count 322, Mean Platelet Volume 7.0, Neutrophils (%) (Auto) 78.9H, Lymphocytes (%) (Auto) 14.6L, Monocytes (%) (Auto ) 5.7, Eosinophils (%) (Auto) 0.1, Basophils (%) (Auto) 0.7, Prothrombin Time 11.3, Prothromb Time International Ratio 1.1, Activated Partial Thromboplast Time 25, Phosphorus Level 1.8L, Total Bilirubin 0.4, Direct Bilirubin < 0.1, Aspartate Amino Transf (AST/SGOT) 128H, Alanine Aminotransferase (ALT/SGPT) 161H , Alkaline Phosphatase 112, Lactate Dehydrogenase 427H, Total Protein 7.0, Albumin 2.7L, Globulin 4.1, Albumin/Globulin Ratio 0.7L, Hepatitis A IgM Antibody [Pending], Hepatitis B Surface Antigen [Pending], Hepatitis B Core IgM Antibody [Pending], Hepatitis C Antibody [Pending] 10/31/17 08:00: Arterial Blood pH 7.494H, Arterial Blood Partial Pressure CO2 21.2*L, Arterial Blood Partial Pressure O2 154.9H, Arterial Blood HCO3 15.9L, Arterial Blood Oxygen Saturation 98.2H, Arterial Blood Base Excess -5.4, Aj Test Positive Height (Feet): 5 Height (Inches): 2.00 Weight (Pounds): 105 Objective HEAD AND NECK: No JVP. No LAD. No thyromegaly. Extraocular movement intact. Pupils are reactive to light and accommodation. LUNGS: Decreased breathing sounds on the right. Apparently, the patient received IJ placement this morning and later on patient developed a pneumothorax on the right side. ABDOMEN: Soft, nontender, and nondistended. EXTREMITIES: No edema. No clubbing. No cyanosis. The patient has Stefani Shabazz MD Oct 31, 2017 09:07
--- NOTE | 2017-10-31 09:12 | Diagnostic Imaging Report ---
Indication: Pneumothorax, status post chest tube placement Technique: One view of the chest Comparison: One hour earlier Findings: Interim placement smallbore chest tube in the right hemithorax. There is considerably improved but persistent right pneumothorax. Equivocal minimal interstitial congestive changes persist. Stable position of endotracheal tube Impression: Improved but persistent right pneumothorax, status post small more chest tube placement
[2017-10-31] MEDS: Heparin 5000 units/ml inj SUBQ SCH ×2 (09:23→21:09)
[2017-10-31] MEDS: Dextrose 10%/.45 SOD CHL 1,000 ML IV SCH ×2 (10:20→23:58)
--- NOTE | 2017-10-31 10:26 | Consultation ---
History of Present Illness General Date patient seen: Oct 31, 2017 Chief Complaint: CPR Reason for Consultation: PNA and UTI Present Illness HPI Ms Robertson is a 57 yo female who presented to the ED on 10/30/17 after pulmonary arrest. The patient is intubated and unable to to give a history but per the cart she was found in the bathroom slummed over with food in her mouth. She was intubated in the field and had a seizure in route the ED. She was found to have a positive Utox for Cocaine. ID was consulted for sepsis and UTI. PMHx Seizures Drug abuse Arthritis Chronic pain. PSHx Unable to obtain as patient intubated SocHx Drug abuse Unable to fully obtain as patient intubated FamHx Unable to fully obtain as patient intubated Allergies: Coded Allergies: ASPIRIN (Verified Allergy, Unknown, 10/30/17) PENICILLINS (Verified Allergy, Unknown, 10/30/17) UNABLE TO ASSESS (Unverified , 10/29/17) Medication History Scheduled Acetaminophen* (Tylenol Extra Strength*), 500 MG ORAL Q6H Albuterol Sulfate* (Albuterol Sulfate Mdi*), 2 PUFF INH Q4H Bacitracin/Polymyxin B Sulfate (Bacitracin-Polymyxin Ointment), 1 APPLIC TP BID Beclomethasone Dipropionate 40MCG Oral Inh (Qvar 40*), 2 PUFFS INH TWICE A DAY Cephalexin* (Keflex*), 500 MG ORAL EVERY 6 HOURS Cyclobenzaprine Hcl* (Flexeril*), 10 MG ORAL THREE TIMES A DAY Docusate Sodium* (Colace*), 100 MG ORAL TWICE A DAY No Known Medications* (NKM - No Known Medications*), 0 ., (Reported) No Known Medications* (NKM - No Known Medications*), 0 ., (Reported) Prednisone* (Prednisone*), 40 MG ORAL DAILY Valacyclovir Hcl* (Valtrex*), 1,000 MG ORAL THREE TIMES A DAY Scheduled PRN Acetaminophen With Codeine (T#3) (Tylenol #3 Tab*), 1 TAB ORAL Q8H PRN for For Pain Acetaminophen* (Tylenol Extra Strength*), 500 MG ORAL Q6H PRN for Mild Pain/ Temp > 100.5 Acetaminophen* (Tylenol Extra Strength*), 500 MG ORAL Q8H PRN for Prn Headache/ Temp > 101 Hydrocodone Bit/Acetaminophen 5-325* ([place] 5-325*), 1 TAB ORAL Q4H PRN for For Pain Hydrocodone Bit/Acetaminophen 5-325* ([place] 5-325*), 1 TAB ORAL Q6H PRN for For Pain Levofloxacin* (Levaquin*), 500 MG ORAL DAILY PRN for 7 Patient History Healthcare decision maker Resuscitation status Full Code Advanced Directive on File No Review of Systems ROS Narrative Unable to obtain as patient intubated Physical Exam Last 24 Hour Vital Signs Date Time Temp Pulse Resp B/P (MAP) Pulse Ox O2 Delivery O2 Flow Rate FiO2 10/31/17 08:45 123 16 40 10/31/17 08:30 122 16 140/82 (101) 100 10/31/17 08:00 99.8 125 17 160/89 (112) 100 99.8 10/31/17 08:00 30 10/31/17 07:30 127 16 157/96 (116) 100 10/31/17 07:10 127 16 40 10/31/17 07:00 128 16 146/89 (108) 100 10/31/17 06:00 131 18 142/87 (105) 100 10/31/17 06:00 16 Endotracheal Tube 40 10/31/17 05:30 135 18 172/90 (117) 100 10/31/17 05:00 16 Endotracheal Tube 40 10/31/17 05:00 135 17 163/83 (109) 100 10/31/17 04:56 99.6 10/31/17 04:51 136 19 40 10/31/17 04:30 132 15 134/90 (105) 100 10/31/17 04:00 139 10/31/17 04:00 40 10/31/17 04:00 16 Endotracheal Tube 40 10/31/17 04:00 99.6 130 15 121/80 (94) 100 99.6 10/31/17 04:00 Mechanical Ventilator 10/31/17 03:30 122 15 127/80 (96) 100 10/31/17 03:12 123 16 40 10/31/17 03:09 16 Mechanical Ventilator 40 10/31/17 03:00 123 15 151/80 (103) 100 10/31/17 03:00 16 Endotracheal Tube 40 10/31/17 02:30 122 15 139/75 (96) 100 10/31/17 02:00 123 15 109/63 (78) 100 10/31/17 02:00 15 Mechanical Ventilator 40 10/31/17 01:30 114 16 40 10/31/17 01:30 124 16 120/74 (89) 100 10/31/17 01:00 124 14 133/73 (93) 100 10/31/17 01:00 14 Endotracheal Tube 40 10/31/17 00:30 115 14 148/116 (127) 100 10/31/17 00:00 Mechanical Ventilator 10/31/17 00:00 14 Endotracheal Tube 40 10/31/17 00:00 98.3 114 14 128/72 (90) 100 98.3 10/31/17 00:00 40 10/30/17 23:30 115 16 121/76 (91) 100 10/30/17 23:18 115 16 40 10/30/17 23:00 116 16 122/80 (94) 100 10/30/17 23:00 14 Endotracheal Tube 40 10/30/17 22:30 116 16 122/80 (94) 100 10/30/17 22:00 116 16 124/82 (96) 100 10/30/17 22:00 14 Endotracheal Tube 40 10/30/17 21:30 115 16 119/76 (90) 100 10/30/17 21:01 115 16 40 10/30/17 21:00 115 16 124/80 (95) 100 10/30/17 21:00 14 Endotracheal Tube 40 10/30/17 20:30 115 16 121/76 (91) 100 10/30/17 20:00 98.9 117 16 108/78 (88) 100 98.9 10/30/17 20:00 40 10/30/17 20:00 Mechanical Ventilator 10/30/17 20:00 14 Endotracheal Tube 40 10/30/17 20:00 117 10/30/17 19:30 117 16 40 10/30/17 19:30 118 16 117/80 (92) 100 10/30/17 19:00 98.9 117 16 128/62 (84) 100 98.9 10/30/17 19:00 16 Endotracheal Tube 40 10/30/17 18:00 119 16 152/78 (102) 100 10/30/17 17:45 99.9 120 16 111/77 (88) 100 99.9 10/30/17 17:35 Mechanical Ventilator 10/30/17 17:30 121 16 134/87 (103) 100 10/30/17 17:29 99.9 10/30/17 17:17 122 16 40 10/30/17 17:00 129 16 130/89 (103) 100 10/30/17 16:59 100.6 10/30/17 16:43 100.6 100.6 10/30/17 16:30 137 19 113/70 (84) 99 10/30/17 16:00 132 18 113/70 (84) 97 10/30/17 16:00 136 10/30/17 16:00 40 10/30/17 16:00 Mechanical Ventilator 10/30/17 15:45 135 19 114/88 (97) 99 10/30/17 15:30 138 16 114/82 (93) 99 10/30/17 15:15 137 109/91 (97) 100 10/30/17 15:05 140 16 40 10/30/17 15:00 135 16 113/81 (92) 100 10/30/17 15:00 135 18 114/82 (93) 100 10/30/17 15:00 16 Mechanical Ventilator 40 10/30/17 14:45 141 17 133/90 (104) 100 10/30/17 14:30 142 17 133/90 (104) 100 10/30/17 14:25 18 Mechanical Ventilator 40 10/30/17 14:00 139 18 146/94 (111) 100 10/30/17 13:00 98.9 139 16 147/82 (103) 99 98.9 10/30/17 12:59 137 18 40 10/30/17 12:49 Mechanical Ventilator 10/30/17 12:00 129 16 126/77 (93) 99 10/30/17 11:01 138 17 40 10/30/17 11:00 127 16 103/79 (87) 100 Intake and Output 10/30/17 10/31/17 19:00 07:00 Intake Total 1885.334 ml 1179 ml Output Total 155 ml 370 ml Balance 1730.334 ml 809 ml IV Total 1885.334 ml 1179 ml Output Urine Total 155 ml 370 ml # Voids 60 # Bowel Movements 5 1 Laboratory Tests Test 10/30/17 18:00 10/30/17 18:07 10/30/17 22:10 10/31/17 05:00 Lactic Acid Level 1.60 mmol/L (0.4-2.0) Sodium Level 146 MMOL/L (136-145) H 142 MMOL/L (136-145) Potassium Level 3.6 MMOL/L (3.5-5.1) 3.1 MMOL/L (3.5-5.1) L Chloride Level 112 MMOL/L (98-107) H 109 MMOL/L (98-107) H Carbon Dioxide Level 22 MMOL/L (21-32) 23 MMOL/L (21-32) Anion Gap 13 mmol/L (5-15) 10 mmol/L (5-15) Blood Urea Nitrogen 17 mg/dL (7-18) 13 mg/dL (7-18) Creatinine 1.1 MG/DL (0.55-1.30) 1.2 MG/DL (0.55-1.30) Estimat Glomerular Filtration Rate > 60 mL/min (>60) 56.1 mL/min (>60) Glucose Level 118 MG/DL (74-106) #H 188 MG/DL (74-106) H Calcium Level 8.9 MG/DL (8.5-10.1) 8.7 MG/DL (8.5-10.1) Magnesium Level 1.8 MG/DL (1.8-2.4) 1.6 MG/DL (1.8-2.4) L Ammonia 21 umol/L (11-32) Urine Eosinophils None seen (NONE SEEN) Urine Random Creatinine Pending Urine Random Microalbumin Pending Urine Random Total Protein 182 MG/DL (< 11.9) H Urine Random Sodium 44 mmol/L (20-110) Urine Creatinine 255.6 MG/DL (30.0-125.0) H Urine Microalbumin/Creatinine Ratio Pending White Blood Count 17.6 K/UL (4.8-10.8) #H Red Blood Count 4.23 M/UL (4.20-5.40) Hemoglobin 12.3 G/DL (12.0-16.0) Hematocrit 38.7 % (37.0-47.0) Mean Corpuscular Volume 92 FL (80-99) Mean Corpuscular Hemoglobin 29.1 PG (27.0-31.0) Mean Corpuscular Hemoglobin Concent 31.7 G/DL (32.0-36.0) L Red Cell Distribution Width 12.0 % (11.6-14.8) Platelet Count 322 K/UL (150-450) Mean Platelet Volume 7.0 FL (6.5-10.1) Neutrophils (%) (Auto) 78.9 % (45.0-75.0) H Lymphocytes (%) (Auto) 14.6 % (20.0-45.0) L Monocytes (%) (Auto) 5.7 % (1.0-10.0) Eosinophils (%) (Auto) 0.1 % (0.0-3.0) Basophils (%) (Auto) 0.7 % (0.0-2.0) Prothrombin Time 11.3 SEC (9.30-11.50) Prothromb Time International Ratio 1.1 (0.9-1.1) Activated Partial Thromboplast Time 25 SEC (23-33) Phosphorus Level 1.8 MG/DL (2.5-4.9) L Total Bilirubin 0.4 MG/DL (0.2-1.0) Direct Bilirubin < 0.1 MG/DL (0.0-0.3) Aspartate Amino Transf (AST/SGOT) 128 U/L (15-37) H Alanine Aminotransferase (ALT/SGPT) 161 U/L (12-78) H Alkaline Phosphatase 112 U/L (46-116) Lactate Dehydrogenase 427 U/L (81-234) H Total Protein 7.0 G/DL (6.4-8.2) Albumin 2.7 G/DL (3.4-5.0) L Globulin 4.1 g/dL Albumin/Globulin Ratio 0.7 (1.0-2.7) L Phenytoin (Dilantin) Level 4.6 ug/mL (10-20) L Hepatitis A IgM Antibody Pending Hepatitis B Surface Antigen Pending Hepatitis B Core IgM Antibody Pending Hepatitis C Antibody Pending Test 10/31/17 08:00 Arterial Blood pH 7.494 (7.350-7.450) Arterial Blood Partial Pressure CO2 21.2 mmHg (35.0-45.0) *L Arterial Blood Partial Pressure O2 154.9 mmHg (75.0-100.0) H Arterial Blood HCO3 15.9 mmol/L (22.0-26.0) L Arterial Blood Oxygen Saturation 98.2 % (92.0-98.0) H Arterial Blood Base Excess -5.4 Aj Test Positive Microbiology Date/Time Source Procedure Growth Status 10/30/17 11:01 Sputum Induced Gram Stain - Final Resulted 10/30/17 11:01 Sputum Induced Sputum Culture Pending Resulted Height (Feet): 5 Height (Inches): 2.00 Weight (Pounds): 105 Medications Current Medications Medications (Trade) Dose Ordered Sig/Yung Route PRN Reason Start Time Stop Time Status Last Admin Dose Admin Acetaminophen (Tylenol) 650 mg Q4H PRN RECTAL Prn Headache/Temp > 101 10/30/17 16:45 11/29/17 16:44 10/30/17 16:59 Albuterol/ Ipratropium (Albuterol/ Ipratropium) 3 ml Q4H PRN HHN Shortness of Breath 10/30/17 08:00 11/04/17 07:59 Aztreonam 1 gm/ Dextrose 55 ml @ 110 mls/hr Q8H IVPB 10/30/17 18:00 11/06/17 17:59 10/31/17 01:42 Chlorhexidine Gluconate (Sunita-Hex 2%) 1 applic DAILY@2000 TOPIC 10/30/17 20:00 11/29/17 19:59 10/30/17 20:15 Dextrose (Dextrose 50%) 25 ml STAT PRN IV Hypoglycemia 10/30/17 08:00 11/29/17 07:59 Dextrose (Dextrose 50%) 50 ml STAT PRN IV Hypoglycemia 10/30/17 08:00 11/29/17 07:59 10/31/17 04:31 Dextrose/Sodium Chloride 1,000 ml @ 75 mls/hr [id number] IV 10/31/17 09:30 11/30/17 09:29 Heparin Sodium (Porcine) (Heparin 5000 units/ml) 5,000 units EVERY 12 HOURS SUBQ 10/30/17 09:00 11/29/17 08:59 10/31/17 09:23 Levetiracetam 100 ml @ 400 mls/hr Q8H IVPB 10/30/17 17:00 11/29/17 16:59 10/31/17 00:49 Lorazepam (Ativan 2mg/ml 1ml) 2 mg Q30MIN PRN IVP For Seizures 10/30/17 09:15 11/06/17 09:14 10/30/17 14:11 Metronidazole 100 ml @ 100 mls/hr Q8H IVPB 10/30/17 11:00 11/06/17 10:59 10/31/17 03:08 Midazolam HCl 100 ml @ 0 mls/hr Q24H IVPB 10/30/17 14:00 11/06/17 13:59 10/31/17 03:09 Morphine Sulfate (Morphine Sulfate) 4 mg Q4H PRN IVP Severe Pain (Pain Scale 7-10) 10/30/17 08:00 11/06/17 07:59 Nitroglycerin (Ntg) 0.4 mg Q5M PRN SL Prn Chest Pain 10/30/17 08:00 11/29/17 07:59 Ondansetron HCl (Zofran) 4 mg Q6H PRN IVP Nausea & Vomiting 10/30/17 08:00 11/29/17 07:59 Phenytoin 100 mg/ Sodium Chloride 57 ml @ 114 mls/hr [id number] PHENYTOIN IVPB 10/30/17 16:00 11/29/17 15:59 10/31/17 08:50 Potassium Chloride 100 ml @ 100 mls/hr Q1H IVPB 10/31/17 09:00 10/31/17 12:59 10/31/17 09:19 Vancomycin HCl (Vanco rx to dose) 1 ea DAILY PRN MISC Per rx protocol 10/30/17 09:30 11/29/17 09:29 Vancomycin/Sodium Chloride 250 ml @ 166.667 mls/hr Q24H IVPB 10/30/17 11:00 11/04/17 10:59 10/30/17 11:18 Objective Narrative Gen: NAD, intubated on Vent HEENT: NCAT, MMM, PERRL, No Oral lesion, no scleral icterus, Missing multiple teeth NECK: supple, No LAD, No JVD LUNGS: Mechanical breath sounds with course rhonchi B/L CARDS: RRR, S1, S2, No M/R/G, ABD: Soft, NT, ND, No R/G, + BS, No HSM, No Masses : Differed Ext: C/C/E, Pulses 2+ B/L (DP, Rad): NEURO: A/O x 0, No Spont Movement PSYCH: unable to assess SKIN: warm/dry, No rashes, Assessment/Plan Assessment/Plan 57 yo female who presented to the ED on 10/30/17 after pulmonary arrest. Sepsis - Probable Asp PNA and UTI On Abx f/u Sputum Cultures f/u Urine Cx Leukocytosis - WBCs 16 after seizure No Fevers Seizures - Had Seizure on route to ED 10/30/17 and in the ICU as well Drug abuse - Pos for cocaine Arthritis Chronic pain. P: Start Ceftriaxone and flagyl for asp PNA and UTI Ceftriaxone has good Gp and Gn coverage. She was given a dose in the ED and had no adverse reaction. D/C Vancomycin #1 D/C Aztreonam 10/30 SP Ceftriaxone f/u U and S Cx Monitor CBC and Tmeps Vent management per pulm Thank you for this consult. We will continue to follow the patient during this hospitalization. Gutierrez Sifuentes MD Oct 31, 2017 10:25
--- NOTE | 2017-10-31 10:26 | Diagnostic Imaging Report ---
Indication: Cough Technique: One view of the chest Comparison: 10/30/2017 Findings: Interim further improvement of previously demonstrated pneumothorax, now with only a small apical pneumothorax present. Somewhat ill-defined interstitial opacities are seen in the right lung. Stable satisfactory positions of endotracheal tube and central venous catheter. Some atelectatic changes are seen at the left lung base. The heart size is normal. Impression: Improved and now small right pneumothorax. Ill-defined nonspecific interstitial changes in the right lung Left basilar atelectasis Other stable findings as described
--- NOTE | 2017-10-31 10:28 | Pulmonolgy Critical Care Note ---
Critical Care - Asmt/Plan Assessment/Plan: ASSESSMENT respiratory arrest acute hypoxemic respiratory failure requiring intubation probably aspiration PNA status epilepticus -resolved acute toxic metabolic encephalopathy ( due to status epileptics, resp failure and aspiration) R sided pneumothorax transaminitis ARF, probably ATN due to unstable hemodynamics on CKD Chronic kidney disease with proteinuria likely due to HTN nephrosclerosis seizure disorder cocaine abuse HTN Lupus e/lyte imbalance hypoglycemia PLAN OF CARE ICU NPO IVF vent support, pulmonary toilet decrease AC rate daily CXR and ABG while intubated chest tube care to Pleura-vac,maintain adequate suctioning monitor for PTX with daily CXR, remove when PTX resolved surgeon follows sputum cx empiric abx ID follows CT head negative for acute IC pathology Carotid Duplex neuro eval pending started on Keppra and Dilantin IV Versed gtt seizures stopped seizure precautions, EEG monitor BP ECHO with pEF 60% and RVSP of 35 cardio follows trend LFT hepatitis panel ,abd US DVT prophylaxis monitor renal parameters, lytes, correct lytes - per nephro; avoid nephrotoxic, - nephro follows per nephro ARF , possibly ATN due to unstable hemodynamics on CKD due to HTN nephrosclerosis IVF changed to D10 since hypoglycemia, keep NPO for now supportive care case discussed and evaluated by supervising physician Critical Care - Objective Last 24 Hour Vital Signs Date Time Temp Pulse Resp B/P (MAP) Pulse Ox O2 Delivery O2 Flow Rate FiO2 10/31/17 08:45 123 16 40 10/31/17 08:30 122 16 140/82 (101) 100 10/31/17 08:00 99.8 125 17 160/89 (112) 100 99.8 10/31/17 08:00 30 10/31/17 07:30 127 16 157/96 (116) 100 10/31/17 07:10 127 16 40 10/31/17 07:00 128 16 146/89 (108) 100 10/31/17 06:00 131 18 142/87 (105) 100 10/31/17 06:00 16 Endotracheal Tube 40 10/31/17 05:30 135 18 172/90 (117) 100 10/31/17 05:00 16 Endotracheal Tube 40 10/31/17 05:00 135 17 163/83 (109) 100 10/31/17 04:56 99.6 10/31/17 04:51 136 19 40 10/31/17 04:30 132 15 134/90 (105) 100 10/31/17 04:00 139 10/31/17 04:00 40 10/31/17 04:00 16 Endotracheal Tube 40 10/31/17 04:00 99.6 130 15 121/80 (94) 100 99.6 10/31/17 04:00 Mechanical Ventilator 10/31/17 03:30 122 15 127/80 (96) 100 10/31/17 03:12 123 16 40 10/31/17 03:09 16 Mechanical Ventilator 40 10/31/17 03:00 123 15 151/80 (103) 100 10/31/17 03:00 16 Endotracheal Tube 40 10/31/17 02:30 122 15 139/75 (96) 100 10/31/17 02:00 123 15 109/63 (78) 100 10/31/17 02:00 15 Mechanical Ventilator 40 10/31/17 01:30 114 16 40 10/31/17 01:30 124 16 120/74 (89) 100 10/31/17 01:00 124 14 133/73 (93) 100 10/31/17 01:00 14 Endotracheal Tube 40 10/31/17 00:30 115 14 148/116 (127) 100 10/31/17 00:00 Mechanical Ventilator 10/31/17 00:00 14 Endotracheal Tube 40 10/31/17 00:00 98.3 114 14 128/72 (90) 100 98.3 10/31/17 00:00 40 10/30/17 23:30 115 16 121/76 (91) 100 10/30/17 23:18 115 16 40 10/30/17 23:00 116 16 122/80 (94) 100 10/30/17 23:00 14 Endotracheal Tube 40 10/30/17 22:30 116 16 122/80 (94) 100 10/30/17 22:00 116 16 124/82 (96) 100 10/30/17 22:00 14 Endotracheal Tube 40 10/30/17 21:30 115 16 119/76 (90) 100 10/30/17 21:01 115 16 40 10/30/17 21:00 115 16 124/80 (95) 100 10/30/17 21:00 14 Endotracheal Tube 40 10/30/17 20:30 115 16 121/76 (91) 100 10/30/17 20:00 98.9 117 16 108/78 (88) 100 98.9 10/30/17 20:00 40 10/30/17 20:00 Mechanical Ventilator 10/30/17 20:00 14 Endotracheal Tube 40 10/30/17 20:00 117 10/30/17 19:30 117 16 40 10/30/17 19:30 118 16 117/80 (92) 100 10/30/17 19:00 98.9 117 16 128/62 (84) 100 98.9 10/30/17 19:00 16 Endotracheal Tube 40 10/30/17 18:00 119 16 152/78 (102) 100 10/30/17 17:45 99.9 120 16 111/77 (88) 100 99.9 10/30/17 17:35 Mechanical Ventilator 10/30/17 17:30 121 16 134/87 (103) 100 10/30/17 17:29 99.9 10/30/17 17:17 122 16 40 10/30/17 17:00 129 16 130/89 (103) 100 10/30/17 16:59 100.6 10/30/17 16:43 100.6 100.6 10/30/17 16:30 137 19 113/70 (84) 99 10/30/17 16:00 132 18 113/70 (84) 97 10/30/17 16:00 136 10/30/17 16:00 40 10/30/17 16:00 Mechanical Ventilator 10/30/17 15:45 135 19 114/88 (97) 99 10/30/17 15:30 138 16 114/82 (93) 99 10/30/17 15:15 137 109/91 (97) 100 10/30/17 15:05 140 16 40 10/30/17 15:00 135 16 113/81 (92) 100 10/30/17 15:00 135 18 114/82 (93) 100 10/30/17 15:00 16 Mechanical Ventilator 40 10/30/17 14:45 141 17 133/90 (104) 100 10/30/17 14:30 142 17 133/90 (104) 100 10/30/17 14:25 18 Mechanical Ventilator 40 10/30/17 14:00 139 18 146/94 (111) 100 10/30/17 13:00 98.9 139 16 147/82 (103) 99 98.9 10/30/17 12:59 137 18 40 10/30/17 12:49 Mechanical Ventilator 10/30/17 12:00 129 16 126/77 (93) 99 10/30/17 11:01 138 17 40 10/30/17 11:00 127 16 103/79 (87) 100 Objective: Status: lethargic, orally intubated , on vent Condition: critical HEENT: atraumatic, OP with ET in place, intact n= Neck: CL R subclavian intact Lungs: few isolated rhonchi, R sided chest tube to Pleura-vac Heart: HR/BP stable Abdomen: soft, non-tender, active bowel sounds : [place] Extremities: no C/C/E Micro: Microbiology Date/Time Source Procedure Growth Status 10/30/17 11:01 Sputum Induced Gram Stain - Final Resulted 10/30/17 11:01 Sputum Induced Sputum Culture Pending Resulted 10/30/17 07:15 Nasal Nares MRSA Culture - Final NO METHICILLIN RESISTANT STAPH AUREUS... Complete 10/30/17 07:15 Rectum - Preliminary Resulted Accucheck: 93 Critical Care - Subjective Interval Events: leukocytosis today, low grade fever on Versed gtt, no further seizures s/p CL placement 10/30/ CXR with + PNT s/p CT placement f /up CXR -decreasing PNT no signs of resp distress, ABG noted e/lyte imbalance ( low K and Mg) Condition: critical IV Access: central - R subclavian TL intact EKG Rhythm: Sinus Tachycardia FI02: 40 Vent Support Breath Rate: 16 Vent Support Mode: AC Vent Tidal Volume: 600 Sputum Amount: Small PIP: 20 Fluids: D5 1/2 NS at 75 I&O: Intake and Output 10/30/17 10/31/17 19:00 07:00 Intake Total 1885.334 ml 1179 ml Output Total 155 ml 370 ml Balance 1730.334 ml 809 ml IV Total 1885.334 ml 1179 ml Output Urine Total 155 ml 370 ml # Voids 60 # Bowel Movements 5 1 ET-Tube: 7.5 ET Position: 23 Isi Uriostegui NP Oct 31, 2017 10:28
--- NOTE | 2017-10-31 11:28 | General Progress Note ---
Assessment/Plan Problem List: (1) Respiratory failure ICD Codes: J96.90 - Respiratory failure, unspecified, unspecified whether with hypoxia or hypercapnia SNOMED: 289734359 (2) Malnutrition ICD Codes: E46 - Unspecified protein-calorie malnutrition SNOMED: 90871704 (3) Renal insufficiency ICD Codes: N28.9 - Disorder of kidney and ureter, unspecified SNOMED: 341291462, 477933633 (4) UTI (urinary tract infection) ICD Codes: N39.0 - Urinary tract infection, site not specified SNOMED: 90286607 (5) Seizure ICD Codes: R56.9 - Unspecified convulsions SNOMED: 56116711 (6) HTN (hypertension) ICD Codes: I10 - Essential (primary) hypertension SNOMED: 88074789 (7) Diabetes ICD Codes: E11.9 - Type 2 diabetes mellitus without complications SNOMED: 11116333 Status: unchanged Assessment/Plan vent abx detox neph f/u cbc bmp am Subjective Constitutional: Reports: weakness Allergies: Coded Allergies: ASPIRIN (Verified Allergy, Unknown, 10/30/17) PENICILLINS (Verified Allergy, Unknown, 10/30/17) UNABLE TO ASSESS (Unverified , 10/29/17) All Systems: reviewed and negative except above Subjective intubated sedated in icu Objective Last 24 Hour Vital Signs Date Time Temp Pulse Resp B/P (MAP) Pulse Ox O2 Delivery O2 Flow Rate FiO2 10/31/17 08:45 123 16 40 10/31/17 08:30 122 16 140/82 (101) 100 10/31/17 08:00 99.8 125 17 160/89 (112) 100 99.8 10/31/17 08:00 30 10/31/17 07:30 127 16 157/96 (116) 100 10/31/17 07:10 127 16 40 10/31/17 07:00 128 16 146/89 (108) 100 10/31/17 06:00 131 18 142/87 (105) 100 10/31/17 06:00 16 Endotracheal Tube 40 10/31/17 05:30 135 18 172/90 (117) 100 10/31/17 05:00 16 Endotracheal Tube 40 10/31/17 05:00 135 17 163/83 (109) 100 10/31/17 04:56 99.6 10/31/17 04:51 136 19 40 9/10/18 04:30 132 15 134/90 (105) 100 10/31/17 04:00 139 10/31/17 04:00 40 10/31/17 04:00 16 Endotracheal Tube 40 10/31/17 04:00 99.6 130 15 121/80 (94) 100 99.6 10/31/17 04:00 Mechanical Ventilator 10/31/17 03:30 122 15 127/80 (96) 100 10/31/17 03:12 123 16 40 10/31/17 03:09 16 Mechanical Ventilator 40 10/31/17 03:00 123 15 151/80 (103) 100 10/31/17 03:00 16 Endotracheal Tube 40 10/31/17 02:30 122 15 139/75 (96) 100 10/31/17 02:00 123 15 109/63 (78) 100 10/31/17 02:00 15 Mechanical Ventilator 40 10/31/17 01:30 114 16 40 10/31/17 01:30 124 16 120/74 (89) 100 10/31/17 01:00 124 14 133/73 (93) 100 10/31/17 01:00 14 Endotracheal Tube 40 10/31/17 00:30 115 14 148/116 (127) 100 10/31/17 00:00 Mechanical Ventilator 10/31/17 00:00 14 Endotracheal Tube 40 10/31/17 00:00 98.3 114 14 128/72 (90) 100 98.3 10/31/17 00:00 40 10/30/17 23:30 115 16 121/76 (91) 100 10/30/17 23:18 115 16 40 10/30/17 23:00 116 16 122/80 (94) 100 10/30/17 23:00 14 Endotracheal Tube 40 10/30/17 22:30 116 16 122/80 (94) 100 10/30/17 22:00 116 16 124/82 (96) 100 10/30/17 22:00 14 Endotracheal Tube 40 10/30/17 21:30 115 16 119/76 (90) 100 10/30/17 21:01 115 16 40 10/30/17 21:00 115 16 124/80 (95) 100 10/30/17 21:00 14 Endotracheal Tube 40 10/30/17 20:30 115 16 121/76 (91) 100 10/30/17 20:00 98.9 117 16 108/78 (88) 100 98.9 10/30/17 20:00 40 10/30/17 20:00 Mechanical Ventilator 10/30/17 20:00 14 Endotracheal Tube 40 10/30/17 20:00 117 10/30/17 19:30 117 16 40 10/30/17 19:30 118 16 117/80 (92) 100 10/30/17 19:00 98.9 117 16 128/62 (84) 100 98.9 10/30/17 19:00 16 Endotracheal Tube 40 10/30/17 18:00 119 16 152/78 (102) 100 10/30/17 17:45 99.9 120 16 111/77 (88) 100 99.9 10/30/17 17:35 Mechanical Ventilator 10/30/17 17:30 121 16 134/87 (103) 100 10/30/17 17:29 99.9 10/30/17 17:17 122 16 40 10/30/17 17:00 129 16 130/89 (103) 100 10/30/17 16:59 100.6 10/30/17 16:43 100.6 100.6 10/30/17 16:30 137 19 113/70 (84) 99 10/30/17 16:00 132 18 113/70 (84) 97 10/30/17 16:00 136 10/30/17 16:00 40 10/30/17 16:00 Mechanical Ventilator 10/30/17 15:45 135 19 114/88 (97) 99 10/30/17 15:30 138 16 114/82 (93) 99 10/30/17 15:15 137 109/91 (97) 100 10/30/17 15:05 140 16 40 10/30/17 15:00 135 16 113/81 (92) 100 10/30/17 15:00 135 18 114/82 (93) 100 10/30/17 15:00 16 Mechanical Ventilator 40 10/30/17 14:45 141 17 133/90 (104) 100 10/30/17 14:30 142 17 133/90 (104) 100 10/30/17 14:25 18 Mechanical Ventilator 40 10/30/17 14:00 139 18 146/94 (111) 100 10/30/17 13:00 98.9 139 16 147/82 (103) 99 98.9 10/30/17 12:59 137 18 40 10/30/17 12:49 Mechanical Ventilator 10/30/17 12:00 129 16 126/77 (93) 99 Intake and Output 10/30/17 10/31/17 19:00 07:00 Intake Total 1885.334 ml 1179 ml Output Total 155 ml 370 ml Balance 1730.334 ml 809 ml IV Total 1885.334 ml 1179 ml Output Urine Total 155 ml 370 ml # Voids 60 # Bowel Movements 5 1 Laboratory Tests 10/30/17 18:00: Lactic Acid Level 1.60 10/30/17 18:07: Sodium Level 146H, Potassium Level 3.6, Chloride Level 112H, Carbon Dioxide Level 22, Anion Gap 13, Blood Urea Nitrogen 17, Creatinine 1.1, Estimat Glomerular Filtration Rate > 60, Glucose Level 118#H, Calcium Level 8.9, Magnesium Level 1.8, Ammonia 21 10/30/17 22:10: Urine Eosinophils None seen, Urine Random Creatinine [Pending], Urine Random Microalbumin [Pending], Urine Random Total Protein 182H, Urine Random Sodium 44 , Urine Creatinine 255.6H, Urine Microalbumin/Creatinine Ratio [Pending] 10/31/17 05:00: Sodium Level 142, Potassium Level 3.1L, Chloride Level 109H, Carbon Dioxide Level 23, Anion Gap 10, Blood Urea Nitrogen 13, Creatinine 1.2, Estimat Glomerular Filtration Rate 56.1, Glucose Level 188H, Calcium Level 8.7, Magnesium Level 1.6L, White Blood Count 17.6#H, Red Blood Count 4.23, Hemoglobin 12.3, Hematocrit 38.7, Mean Corpuscular Volume 92, Mean Corpuscular Hemoglobin 29.1, Mean Corpuscular Hemoglobin Concent 31.7L, Red Cell Distribution Width 12.0, Platelet Count 322, Mean Platelet Volume 7.0, Neutrophils (%) (Auto) 78.9H, Lymphocytes (%) (Auto) 14.6L, Monocytes (%) (Auto ) 5.7, Eosinophils (%) (Auto) 0.1, Basophils (%) (Auto) 0.7, Prothrombin Time 11.3, Prothromb Time International Ratio 1.1, Activated Partial Thromboplast Time 25, Phosphorus Level 1.8L, Total Bilirubin 0.4, Direct Bilirubin < 0.1, Aspartate Amino Transf (AST/SGOT) 128H, Alanine Aminotransferase (ALT/SGPT) 161H , Alkaline Phosphatase 112, Lactate Dehydrogenase 427H, Total Protein 7.0, Albumin 2.7L, Globulin 4.1, Albumin/Globulin Ratio 0.7L, Phenytoin (Dilantin) Level 4.6L, Hepatitis A IgM Antibody [Pending], Hepatitis B Surface Antigen [ Pending], Hepatitis B Core IgM Antibody [Pending], Hepatitis C Antibody [Pending ] 10/31/17 08:00: Arterial Blood pH 7.494H, Arterial Blood Partial Pressure CO2 21.2*L, Arterial Blood Partial Pressure O2 154.9H, Arterial Blood HCO3 15.9L, Arterial Blood Oxygen Saturation 98.2H, Arterial Blood Base Excess -5.4, Aj Test Positive Height (Feet): 5 Height (Inches): 2.00 Weight (Pounds): 105 General Appearance: lethargic EENT: normal ENT inspection Neck: normal alignment Cardiovascular: normal peripheral pulses, normal rate, regular rhythm Respiratory/Chest: chest wall non-tender, decreased breath sounds Abdomen: normal bowel sounds, non tender, soft Extremities: normal inspection Edema: no edema noted Arm (L), no edema noted Arm (R), no edema noted Leg (L), no edema noted Leg (R), no edema noted Pedal (L), no edema noted Pedal (R), no edema noted Generalized Neurologic: motor weakness Skin: normal pigmentation, warm/dry Josias Skinner DO Oct 31, 2017 11:28
--- NOTE | 2017-10-31 12:22 | General Surgery Progress Note ---
General Surgery-Progress Note Subjective Additional Comments seizures seem to have stopped. CXR improved. labs reviewed. still unresponsive without significant reflexes Objective Last 24 Hour Vital Signs Date Time Temp Pulse Resp B/P (MAP) Pulse Ox O2 Delivery O2 Flow Rate FiO2 10/31/17 10:30 116 16 30 10/31/17 10:30 117 16 154/80 (104) 100 10/31/17 10:00 117 16 136/80 (98) 100 10/31/17 09:30 119 16 140/80 (100) 100 10/31/17 09:00 120 16 138/82 (100) 100 10/31/17 08:45 123 16 40 10/31/17 08:30 122 16 140/82 (101) 100 10/31/17 08:00 99.8 125 17 160/89 (112) 100 99.8 10/31/17 08:00 30 10/31/17 07:30 127 16 157/96 (116) 100 10/31/17 07:10 127 16 40 10/31/17 07:00 128 16 146/89 (108) 100 10/31/17 06:00 131 18 142/87 (105) 100 10/31/17 06:00 16 Endotracheal Tube 40 10/31/17 05:30 135 18 172/90 (117) 100 10/31/17 05:00 16 Endotracheal Tube 40 10/31/17 05:00 135 17 163/83 (109) 100 10/31/17 04:56 99.6 10/31/17 04:51 136 19 40 10/31/17 04:30 132 15 134/90 (105) 100 10/31/17 04:00 139 10/31/17 04:00 40 10/31/17 04:00 16 Endotracheal Tube 40 10/31/17 04:00 99.6 130 15 121/80 (94) 100 99.6 10/31/17 04:00 Mechanical Ventilator 10/31/17 03:30 122 15 127/80 (96) 100 10/31/17 03:12 123 16 40 10/31/17 03:09 16 Mechanical Ventilator 40 10/31/17 03:00 123 15 151/80 (103) 100 10/31/17 03:00 16 Endotracheal Tube 40 10/31/17 02:30 122 15 139/75 (96) 100 10/31/17 02:00 123 15 109/63 (78) 100 10/31/17 02:00 15 Mechanical Ventilator 40 10/31/17 01:30 114 16 40 10/31/17 01:30 124 16 120/74 (89) 100 10/31/17 01:00 124 14 133/73 (93) 100 10/31/17 01:00 14 Endotracheal Tube 40 10/31/17 00:30 115 14 148/116 (127) 100 10/31/17 00:00 Mechanical Ventilator 10/31/17 00:00 14 Endotracheal Tube 40 10/31/17 00:00 98.3 114 14 128/72 (90) 100 98.3 10/31/17 00:00 40 10/30/17 23:30 115 16 121/76 (91) 100 10/30/17 23:18 115 16 40 10/30/17 23:00 116 16 122/80 (94) 100 10/30/17 23:00 14 Endotracheal Tube 40 10/30/17 22:30 116 16 122/80 (94) 100 10/30/17 22:00 116 16 124/82 (96) 100 10/30/17 22:00 14 Endotracheal Tube 40 10/30/17 21:30 115 16 119/76 (90) 100 10/30/17 21:01 115 16 40 10/30/17 21:00 115 16 124/80 (95) 100 10/30/17 21:00 14 Endotracheal Tube 40 10/30/17 20:30 115 16 121/76 (91) 100 10/30/17 20:00 98.9 117 16 108/78 (88) 100 98.9 10/30/17 20:00 40 10/30/17 20:00 Mechanical Ventilator 10/30/17 20:00 14 Endotracheal Tube 40 10/30/17 20:00 117 10/30/17 19:30 117 16 40 10/30/17 19:30 118 16 117/80 (92) 100 10/30/17 19:00 98.9 117 16 128/62 (84) 100 98.9 10/30/17 19:00 16 Endotracheal Tube 40 10/30/17 18:00 119 16 152/78 (102) 100 10/30/17 17:45 99.9 120 16 111/77 (88) 100 99.9 10/30/17 17:35 Mechanical Ventilator 10/30/17 17:30 121 16 134/87 (103) 100 10/30/17 17:29 99.9 10/30/17 17:17 122 16 40 10/30/17 17:00 129 16 130/89 (103) 100 10/30/17 16:59 100.6 10/30/17 16:43 100.6 100.6 10/30/17 16:30 137 19 113/70 (84) 99 10/30/17 16:00 132 18 113/70 (84) 97 10/30/17 16:00 136 10/30/17 16:00 40 10/30/17 16:00 Mechanical Ventilator 10/30/17 15:45 135 19 114/88 (97) 99 10/30/17 15:30 138 16 114/82 (93) 99 10/30/17 15:15 137 109/91 (97) 100 10/30/17 15:05 140 16 40 10/30/17 15:00 135 16 113/81 (92) 100 10/30/17 15:00 135 18 114/82 (93) 100 10/30/17 15:00 16 Mechanical Ventilator 40 10/30/17 14:45 141 17 133/90 (104) 100 10/30/17 14:30 142 17 133/90 (104) 100 10/30/17 14:25 18 Mechanical Ventilator 40 10/30/17 14:00 139 18 146/94 (111) 100 10/30/17 13:00 98.9 139 16 147/82 (103) 99 98.9 10/30/17 12:59 137 18 40 10/30/17 12:49 Mechanical Ventilator I&O Intake and Output 10/30/17 10/31/17 19:00 07:00 Intake Total 1885.334 ml 1179 ml Output Total 155 ml 370 ml Balance 1730.334 ml 809 ml IV Total 1885.334 ml 1179 ml Output Urine Total 155 ml 370 ml # Voids 60 # Bowel Movements 5 1 Dressing: dry Wound: other Drains: other Respiratory: clear Abdomen: soft, flat, present bowel sounds Extremities: no cyanosis Laboratory Tests Test 10/30/17 18:00 10/30/17 18:07 10/30/17 22:10 10/31/17 05:00 Lactic Acid Level 1.60 mmol/L (0.4-2.0) Sodium Level 146 MMOL/L (136-145) H 142 MMOL/L (136-145) Potassium Level 3.6 MMOL/L (3.5-5.1) 3.1 MMOL/L (3.5-5.1) L Chloride Level 112 MMOL/L (98-107) H 109 MMOL/L (98-107) H Carbon Dioxide Level 22 MMOL/L (21-32) 23 MMOL/L (21-32) Anion Gap 13 mmol/L (5-15) 10 mmol/L (5-15) Blood Urea Nitrogen 17 mg/dL (7-18) 13 mg/dL (7-18) Creatinine 1.1 MG/DL (0.55-1.30) 1.2 MG/DL (0.55-1.30) Estimat Glomerular Filtration Rate > 60 mL/min (>60) 56.1 mL/min (>60) Glucose Level 118 MG/DL (74-106) #H 188 MG/DL (74-106) H Calcium Level 8.9 MG/DL (8.5-10.1) 8.7 MG/DL (8.5-10.1) Magnesium Level 1.8 MG/DL (1.8-2.4) 1.6 MG/DL (1.8-2.4) L Ammonia 21 umol/L (11-32) Urine Eosinophils None seen (NONE SEEN) Urine Random Creatinine Pending Urine Random Microalbumin Pending Urine Random Total Protein 182 MG/DL (< 11.9) H Urine Random Sodium 44 mmol/L (20-110) Urine Creatinine 255.6 MG/DL (30.0-125.0) H Urine Microalbumin/Creatinine Ratio Pending White Blood Count 17.6 K/UL (4.8-10.8) #H Red Blood Count 4.23 M/UL (4.20-5.40) Hemoglobin 12.3 G/DL (12.0-16.0) Hematocrit 38.7 % (37.0-47.0) Mean Corpuscular Volume 92 FL (80-99) Mean Corpuscular Hemoglobin 29.1 PG (27.0-31.0) Mean Corpuscular Hemoglobin Concent 31.7 G/DL (32.0-36.0) L Red Cell Distribution Width 12.0 % (11.6-14.8) Platelet Count 322 K/UL (150-450) Mean Platelet Volume 7.0 FL (6.5-10.1) Neutrophils (%) (Auto) 78.9 % (45.0-75.0) H Lymphocytes (%) (Auto) 14.6 % (20.0-45.0) L Monocytes (%) (Auto) 5.7 % (1.0-10.0) Eosinophils (%) (Auto) 0.1 % (0.0-3.0) Basophils (%) (Auto) 0.7 % (0.0-2.0) Prothrombin Time 11.3 SEC (9.30-11.50) Prothromb Time International Ratio 1.1 (0.9-1.1) Activated Partial Thromboplast Time 25 SEC (23-33) Phosphorus Level 1.8 MG/DL (2.5-4.9) L Total Bilirubin 0.4 MG/DL (0.2-1.0) Direct Bilirubin < 0.1 MG/DL (0.0-0.3) Aspartate Amino Transf (AST/SGOT) 128 U/L (15-37) H Alanine Aminotransferase (ALT/SGPT) 161 U/L (12-78) H Alkaline Phosphatase 112 U/L (46-116) Lactate Dehydrogenase 427 U/L (81-234) H Total Protein 7.0 G/DL (6.4-8.2) Albumin 2.7 G/DL (3.4-5.0) L Globulin 4.1 g/dL Albumin/Globulin Ratio 0.7 (1.0-2.7) L Phenytoin (Dilantin) Level 4.6 ug/mL (10-20) L Hepatitis A IgM Antibody Pending Hepatitis B Surface Antigen Pending Hepatitis B Core IgM Antibody Pending Hepatitis C Antibody Pending Test 10/31/17 08:00 Arterial Blood pH 7.494 (7.350-7.450) Arterial Blood Partial Pressure CO2 21.2 mmHg (35.0-45.0) *L Arterial Blood Partial Pressure O2 154.9 mmHg (75.0-100.0) H Arterial Blood HCO3 15.9 mmol/L (22.0-26.0) L Arterial Blood Oxygen Saturation 98.2 % (92.0-98.0) H Arterial Blood Base Excess -5.4 Aj Test Positive Plan Problems: (1) Pneumothorax on right Assessment & Plan: R PTX s/p right thoravent after right subclavian central line insertion CXR improved. small apical ptx residual on vent. no signs of air leak. cont with tube to suction AM CXR Ho Man Oct 31, 2017 12:22
--- NOTE | 2017-10-31 13:20 | GI Progress Note ---
Assessment/Plan Problems: (1) Malnutrition ICD Codes: E46 - Unspecified protein-calorie malnutrition SNOMED: 56187736 (2) Diabetes ICD Codes: E11.9 - Type 2 diabetes mellitus without complications SNOMED: 00755762 (3) Encephalopathy ICD Codes: G93.40 - Encephalopathy, unspecified SNOMED: 33803738 (4) Aspiration into airway ICD Codes: T17.908A - Unspecified foreign body in respiratory tract, part unspecified causing other injury, initial encounter SNOMED: 707609000, 357726334 (5) Cocaine abuse ICD Codes: F14.10 - Cocaine abuse, uncomplicated SNOMED: 94363588 Status: unchanged Status Narrative Discussed with Dr. Sauceda. Assessment/Plan shocked liver supportive care NGT when respiratory status stable on dilantin, can affect liver function trend LFTs ppi fu labs The patient was seen and examined at bedside and all new and available data was reviewed in the patients chart. I agree with the above findings, impression and plan. (Patient seen earlier today. Signature stamp does not reflect patient encounter time.). - Renaldo Sauceda MD Subjective Subjective limited Objective Last 24 Hour Vital Signs Date Time Temp Pulse Resp B/P (MAP) Pulse Ox O2 Delivery O2 Flow Rate FiO2 10/31/17 12:30 123 16 149/92 (111) 100 10/31/17 12:00 99.1 120 16 155/95 (115) 100 99.1 10/31/17 12:00 30 10/31/17 12:00 125 10/31/17 11:30 120 16 166/78 (107) 100 10/31/17 11:00 118 16 154/85 (108) 100 10/31/17 10:30 116 16 30 10/31/17 10:30 117 16 154/80 (104) 100 10/31/17 10:00 117 16 136/80 (98) 100 10/31/17 09:30 119 16 140/80 (100) 100 10/31/17 09:00 120 16 138/82 (100) 100 10/31/17 08:45 123 16 40 10/31/17 08:30 122 16 140/82 (101) 100 10/31/17 08:00 125 10/31/17 08:00 99.8 125 17 160/89 (112) 100 99.8 10/31/17 08:00 30 10/31/17 07:30 127 16 157/96 (116) 100 10/31/17 07:10 127 16 40 10/31/17 07:00 128 16 146/89 (108) 100 10/31/17 06:00 131 18 142/87 (105) 100 10/31/17 06:00 16 Endotracheal Tube 40 10/31/17 05:30 135 18 172/90 (117) 100 10/31/17 05:00 16 Endotracheal Tube 40 10/31/17 05:00 135 17 163/83 (109) 100 10/31/17 04:56 99.6 10/31/17 04:51 136 19 40 10/31/17 04:30 132 15 134/90 (105) 100 10/31/17 04:00 139 10/31/17 04:00 40 10/31/17 04:00 16 Endotracheal Tube 40 10/31/17 04:00 99.6 130 15 121/80 (94) 100 99.6 10/31/17 04:00 Mechanical Ventilator 10/31/17 03:30 122 15 127/80 (96) 100 10/31/17 03:12 123 16 40 10/31/17 03:09 16 Mechanical Ventilator 40 10/31/17 03:00 123 15 151/80 (103) 100 10/31/17 03:00 16 Endotracheal Tube 40 10/31/17 02:30 122 15 139/75 (96) 100 10/31/17 02:00 123 15 109/63 (78) 100 10/31/17 02:00 15 Mechanical Ventilator 40 10/31/17 01:30 114 16 40 10/31/17 01:30 124 16 120/74 (89) 100 10/31/17 01:00 124 14 133/73 (93) 100 10/31/17 01:00 14 Endotracheal Tube 40 10/31/17 00:30 115 14 148/116 (127) 100 10/31/17 00:00 Mechanical Ventilator 10/31/17 00:00 14 Endotracheal Tube 40 10/31/17 00:00 98.3 114 14 128/72 (90) 100 98.3 10/31/17 00:00 40 10/30/17 23:30 115 16 121/76 (91) 100 10/30/17 23:18 115 16 40 9/9/18 23:00 116 16 122/80 (94) 100 18 23:00 14 Endotracheal Tube 40 18 22:30 116 16 122/80 (94) 100 10/30/17 22:00 116 16 124/82 (96) 100 18 22:00 14 Endotracheal Tube 40 10/30/17 21:30 115 16 119/76 (90) 100 10/30/17 21:01 115 16 40 10/30/17 21:00 115 16 124/80 (95) 100 10/30/17 21:00 14 Endotracheal Tube 40 10/30/17 20:30 115 16 121/76 (91) 100 10/30/17 20:00 98.9 117 16 108/78 (88) 100 98.9 10/30/17 20:00 40 10/30/17 20:00 Mechanical Ventilator 10/30/17 20:00 14 Endotracheal Tube 40 10/30/17 20:00 117 10/30/17 19:30 117 16 40 10/30/17 19:30 118 16 117/80 (92) 100 10/30/17 19:00 98.9 117 16 128/62 (84) 100 98.9 10/30/17 19:00 16 Endotracheal Tube 40 10/30/17 18:00 119 16 152/78 (102) 100 10/30/17 17:45 99.9 120 16 111/77 (88) 100 99.9 10/30/17 17:35 Mechanical Ventilator 10/30/17 17:30 121 16 134/87 (103) 100 10/30/17 17:29 99.9 10/30/17 17:17 122 16 40 18 17:00 129 16 130/89 (103) 100 18 16:59 100.6 10/30/17 16:43 100.6 100.6 10/30/17 16:30 137 19 113/70 (84) 99 10/30/17 16:00 132 18 113/70 (84) 97 10/30/17 16:00 136 10/30/17 16:00 40 10/30/17 16:00 Mechanical Ventilator 10/30/17 15:45 135 19 114/88 (97) 99 10/30/17 15:30 138 16 114/82 (93) 99 10/30/17 15:15 137 109/91 (97) 100 10/30/17 15:05 140 16 40 10/30/17 15:00 135 16 113/81 (92) 100 10/30/17 15:00 135 18 114/82 (93) 100 10/30/17 15:00 16 Mechanical Ventilator 40 10/30/17 14:45 141 17 133/90 (104) 100 10/30/17 14:30 142 17 133/90 (104) 100 10/30/17 14:25 18 Mechanical Ventilator 40 10/30/17 14:00 139 18 146/94 (111) 100 Intake and Output 10/30/17 10/31/17 19:00 07:00 Intake Total 1885.334 ml 1179 ml Output Total 155 ml 370 ml Balance 1730.334 ml 809 ml IV Total 1885.334 ml 1179 ml Output Urine Total 155 ml 370 ml # Voids 60 # Bowel Movements 5 1 Laboratory Tests Test 10/30/17 18:00 10/30/17 18:07 10/30/17 22:10 10/31/17 05:00 Lactic Acid Level 1.60 mmol/L (0.4-2.0) Sodium Level 146 MMOL/L (136-145) H 142 MMOL/L (136-145) Potassium Level 3.6 MMOL/L (3.5-5.1) 3.1 MMOL/L (3.5-5.1) L Chloride Level 112 MMOL/L (98-107) H 109 MMOL/L (98-107) H Carbon Dioxide Level 22 MMOL/L (21-32) 23 MMOL/L (21-32) Anion Gap 13 mmol/L (5-15) 10 mmol/L (5-15) Blood Urea Nitrogen 17 mg/dL (7-18) 13 mg/dL (7-18) Creatinine 1.1 MG/DL (0.55-1.30) 1.2 MG/DL (0.55-1.30) Estimat Glomerular Filtration Rate > 60 mL/min (>60) 56.1 mL/min (>60) Glucose Level 118 MG/DL (74-106) #H 188 MG/DL (74-106) H Calcium Level 8.9 MG/DL (8.5-10.1) 8.7 MG/DL (8.5-10.1) Magnesium Level 1.8 MG/DL (1.8-2.4) 1.6 MG/DL (1.8-2.4) L Ammonia 21 umol/L (11-32) Urine Eosinophils None seen (NONE SEEN) Urine Random Creatinine Pending Urine Random Microalbumin Pending Urine Random Total Protein 182 MG/DL (< 11.9) H Urine Random Sodium 44 mmol/L (20-110) Urine Creatinine 255.6 MG/DL (30.0-125.0) H Urine Microalbumin/Creatinine Ratio Pending White Blood Count 17.6 K/UL (4.8-10.8) #H Red Blood Count 4.23 M/UL (4.20-5.40) Hemoglobin 12.3 G/DL (12.0-16.0) Hematocrit 38.7 % (37.0-47.0) Mean Corpuscular Volume 92 FL (80-99) Mean Corpuscular Hemoglobin 29.1 PG (27.0-31.0) Mean Corpuscular Hemoglobin Concent 31.7 G/DL (32.0-36.0) L Red Cell Distribution Width 12.0 % (11.6-14.8) Platelet Count 322 K/UL (150-450) Mean Platelet Volume 7.0 FL (6.5-10.1) Neutrophils (%) (Auto) 78.9 % (45.0-75.0) H Lymphocytes (%) (Auto) 14.6 % (20.0-45.0) L Monocytes (%) (Auto) 5.7 % (1.0-10.0) Eosinophils (%) (Auto) 0.1 % (0.0-3.0) Basophils (%) (Auto) 0.7 % (0.0-2.0) Prothrombin Time 11.3 SEC (9.30-11.50) Prothromb Time International Ratio 1.1 (0.9-1.1) Activated Partial Thromboplast Time 25 SEC (23-33) Phosphorus Level 1.8 MG/DL (2.5-4.9) L Total Bilirubin 0.4 MG/DL (0.2-1.0) Direct Bilirubin < 0.1 MG/DL (0.0-0.3) Aspartate Amino Transf (AST/SGOT) 128 U/L (15-37) H Alanine Aminotransferase (ALT/SGPT) 161 U/L (12-78) H Alkaline Phosphatase 112 U/L (46-116) Lactate Dehydrogenase 427 U/L (81-234) H Total Protein 7.0 G/DL (6.4-8.2) Albumin 2.7 G/DL (3.4-5.0) L Globulin 4.1 g/dL Albumin/Globulin Ratio 0.7 (1.0-2.7) L Phenytoin (Dilantin) Level 4.6 ug/mL (10-20) L Hepatitis A IgM Antibody Pending Hepatitis B Surface Antigen Pending Hepatitis B Core IgM Antibody Pending Hepatitis C Antibody Pending Test 10/31/17 08:00 Arterial Blood pH 7.494 (7.350-7.450) Arterial Blood Partial Pressure CO2 21.2 mmHg (35.0-45.0) *L Arterial Blood Partial Pressure O2 154.9 mmHg (75.0-100.0) H Arterial Blood HCO3 15.9 mmol/L (22.0-26.0) L Arterial Blood Oxygen Saturation 98.2 % (92.0-98.0) H Arterial Blood Base Excess -5.4 Aj Test Positive Height (Feet): 5 Height (Inches): 2.00 Weight (Pounds): 105 General Appearance: no apparent distress Cardiovascular: normal rate Respiratory/Chest: other - intubated Abdominal Exam: soft Risa Davenport NP Oct 31, 2017 13:20
--- NOTE | 2017-10-31 14:32 | Diagnostic Imaging Report ---
Indication: Post central line placement Technique: One view of the chest Comparison: 14 hours earlier Findings: Interim placement of right subclavian central venous catheter, tip which projects at the level of the cavoatrial junction. Interim development of a large right pneumothorax, at least 50%. No definite mediastinal shift. The left lung demonstrating equivocal minimal interstitial congestion, probably improved from the earlier study. Endotracheal tube remains in stable satisfactory position. There is a left shoulder prosthesis in place Impression: Large right pneumothorax, status post central venous catheter placement. Catheter is in satisfactory position. Equivocally slightly improved borderline interstitial congestive change, over 14 hours Other stable findings as described Critical value findings provided to the referring physician by phone by Perico at 1607 on 10/30/2017 and a handwritten preliminary report was provided
[2017-10-31] MEDS: cefTRIAXone 1 GM in D5W 55 ML IVPB SCH (15:20)
--- NOTE | 2017-10-31 15:49 | Diagnostic Imaging Report ---
Indication: Abnormal liver function tests Technique: Sims-scale and duplex images of the upper abdomen were obtained Comparison: none Findings: Gallbladder demonstrates a large gallstone. No gallbladder wall thickening nor pericholecystic fluid. Sonographic Anderson's sign could not be determined, patient unable to report. Common bile duct measures 3 mm in diameter. No intrahepatic biliary ductal dilatation. Liver demonstrates normal echogenicity, no focal abnormality. It does demonstrate equivocal slight surface nodularity. Portal vein and hepatic veins are patent. Pancreas is unremarkable. Spleen is unremarkable. Left kidney measures 9.8 cm in length. Right kidney measures 10.8 cm length. Both kidneys demonstrate equivocally slightly increased echogenicity. There is no hydronephrosis. Left kidney demonstrates a lower pole parapelvic cyst and a possible lower pole 11 mm calculus . Non-aneurysmal abdominal aorta . Impression: Cholelithiasis. Negative for dilated bile duct Equivocal slight hepatic surface nodularity, if real could indicate early cirrhotic change Equivocal slight increased renal echogenicity, if real could indicate early medical renal disease. Negative for hydronephrosis Left kidney lower pole parapelvic cyst and possible 11 mm nonobstructive lower pole calculus
--- NOTE | 2017-10-31 17:24 | Consultation ---
Consult Note Consult Note NEUROLOGY CONSULTATION: Full note dictated #[id number] 57 y/o, RH, BF with long H/O polysubstance abuse with recent cocaine use, seizures, chronic pain. She was hospitalized on 10/30/17 when she came in with respiratory failure which progressed to cardiac failure in her home. She then started to have generalized seizures. She was treated with Dilantin, Keppra and then Versed and the seizures abated. ON EXAM: Comatose does not respond to DP but does open eyes. No definite focal or lateralizing findings. IMPRESSION: Seizures due to hypoxic/ischemic cerebral insult +/- Cocaine intoxication. REC: Continue Dilantin 100 mg IV q 8 H Continue Keppra 1 G IV q 8 H Wean off Versed. EEG. Observe in ICU. Denisse Lester M.D., M.S.P.H. DENISSE LESTER Oct 31, 2017 17:24
--- NOTE | 2017-10-31 18:24 | General Progress Note ---
Assessment/Plan Problem List: (1) Hypoglycemia ICD Codes: E16.2 - Hypoglycemia, unspecified SNOMED: 663745718 (2) SLE (systemic lupus erythematosus) ICD Codes: M32.9 - Systemic lupus erythematosus, unspecified SNOMED: 06455652 (3) Cocaine abuse ICD Codes: F14.10 - Cocaine abuse, uncomplicated SNOMED: 43971186 (4) Elevated transaminase measurement ICD Codes: R74.0 - Nonspecific elevation of levels of transaminase and lactic acid dehydrogenase [LDH] SNOMED: 692038722, 301928052 (5) Diabetes ICD Codes: E11.9 - Type 2 diabetes mellitus without complications SNOMED: 13286737 Assessment/Plan hx of SLE - went off all medications including Prednisone high likelihood of adrenal insufficiency hypoglycemia improved on D10 - add SoluCortef 100 mg every 8 hours - continue BG monitoring - hypoglycemia protocol Subjective ROS Limited/Unobtainable: Yes Allergies: Coded Allergies: ASPIRIN (Verified Allergy, Unknown, 10/30/17) PENICILLINS (Verified Allergy, Unknown, 10/30/17) UNABLE TO ASSESS (Unverified , 10/29/17) Subjective intubated in icu hypoglycemia improved after dextrose concentration has increased to 10% Objective Last 24 Hour Vital Signs Date Time Temp Pulse Resp B/P (MAP) Pulse Ox O2 Delivery O2 Flow Rate FiO2 10/31/17 18:00 119 16 158/84 (108) 100 10/31/17 18:00 14 Mechanical Ventilator 30 10/31/17 17:30 117 14 141/89 (106) 100 10/31/17 17:00 123 14 30 10/31/17 17:00 128 14 154/89 (110) 100 10/31/17 17:00 14 Mechanical Ventilator 30 10/31/17 16:30 124 14 153/84 (107) 99 10/31/17 16:00 30 10/31/17 16:00 Mechanical Ventilator 10/31/17 16:00 14 Mechanical Ventilator 30 10/31/17 16:00 99.0 116 14 154/88 (110) 100 99.0 10/31/17 16:00 117 10/31/17 15:31 117 14 149/85 (106) 100 10/31/17 15:00 116 14 162/85 (110) 100 10/31/17 15:00 14 Mechanical Ventilator 30 10/31/17 14:45 117 16 30 10/31/17 14:30 117 14 145/88 (107) 100 10/31/17 14:00 14 Mechanical Ventilator 30 10/31/17 14:00 121 16 143/89 (107) 100 10/31/17 13:30 122 16 165/88 (113) 100 10/31/17 13:00 14 Mechanical Ventilator 30 10/31/17 13:00 121 16 149/90 (109) 100 10/31/17 12:50 113 16 30 10/31/17 12:30 123 16 149/92 (111) 100 10/31/17 12:00 99.1 120 16 155/95 (115) 100 99.1 10/31/17 12:00 30 10/31/17 12:00 14 Mechanical Ventilator 10/31/17 12:00 Mechanical Ventilator 10/31/17 12:00 125 10/31/17 11:30 120 16 166/78 (107) 100 10/31/17 11:00 118 16 154/85 (108) 100 10/31/17 11:00 14 Mechanical Ventilator 30 10/31/17 10:30 116 16 30 10/31/17 10:30 117 16 154/80 (104) 100 10/31/17 10:00 14 Mechanical Ventilator 30 10/31/17 10:00 117 16 136/80 (98) 100 10/31/17 09:30 119 16 140/80 (100) 100 10/31/17 09:00 14 Mechanical Ventilator 10/31/17 09:00 120 16 138/82 (100) 100 10/31/17 08:50 14 Mechanical Ventilator 30 10/31/17 08:45 123 16 40 10/31/17 08:30 122 16 140/82 (101) 100 10/31/17 08:00 125 10/31/17 08:00 14 Mechanical Ventilator 10/31/17 08:00 Mechanical Ventilator 10/31/17 08:00 99.8 125 17 160/89 (112) 100 99.8 10/31/17 08:00 30 10/31/17 07:30 127 16 157/96 (116) 100 10/31/17 07:10 127 16 40 10/31/17 07:00 14 Mechanical Ventilator 30 10/31/17 07:00 128 16 146/89 (108) 100 10/31/17 06:00 131 18 142/87 (105) 100 10/31/17 06:00 16 Endotracheal Tube 40 10/31/17 05:30 135 18 172/90 (117) 100 10/31/17 05:00 16 Endotracheal Tube 40 10/31/17 05:00 135 17 163/83 (109) 100 10/31/17 04:56 99.6 10/31/17 04:51 136 19 40 10/31/17 04:30 132 15 134/90 (105) 100 10/31/17 04:00 139 10/31/17 04:00 40 10/31/17 04:00 16 Endotracheal Tube 40 10/31/17 04:00 99.6 130 15 121/80 (94) 100 99.6 10/31/17 04:00 Mechanical Ventilator 10/31/17 03:30 122 15 127/80 (96) 100 10/31/17 03:12 123 16 40 10/31/17 03:09 16 Mechanical Ventilator 40 10/31/17 03:00 123 15 151/80 (103) 100 10/31/17 03:00 16 Endotracheal Tube 40 10/31/17 02:30 122 15 139/75 (96) 100 10/31/17 02:00 123 15 109/63 (78) 100 10/31/17 02:00 15 Mechanical Ventilator 40 10/31/17 01:30 114 16 40 10/31/17 01:30 124 16 120/74 (89) 100 10/31/17 01:00 124 14 133/73 (93) 100 10/31/17 01:00 14 Endotracheal Tube 40 10/31/17 00:30 115 14 148/116 (127) 100 10/31/17 00:00 Mechanical Ventilator 10/31/17 00:00 14 Endotracheal Tube 40 10/31/17 00:00 98.3 114 14 128/72 (90) 100 98.3 10/31/17 00:00 40 10/30/17 23:30 115 16 121/76 (91) 100 10/30/17 23:18 115 16 40 10/30/17 23:00 116 16 122/80 (94) 100 10/30/17 23:00 14 Endotracheal Tube 40 10/30/17 22:30 116 16 122/80 (94) 100 10/30/17 22:00 116 16 124/82 (96) 100 10/30/17 22:00 14 Endotracheal Tube 40 10/30/17 21:30 115 16 119/76 (90) 100 10/30/17 21:01 115 16 40 10/30/17 21:00 115 16 124/80 (95) 100 10/30/17 21:00 14 Endotracheal Tube 40 10/30/17 20:30 115 16 121/76 (91) 100 10/30/17 20:00 98.9 117 16 108/78 (88) 100 98.9 10/30/17 20:00 40 10/30/17 20:00 Mechanical Ventilator 10/30/17 20:00 14 Endotracheal Tube 40 10/30/17 20:00 117 10/30/17 19:30 117 16 40 10/30/17 19:30 118 16 117/80 (92) 100 10/30/17 19:00 98.9 117 16 128/62 (84) 100 98.9 10/30/17 19:00 16 Endotracheal Tube 40 Intake and Output 10/30/17 10/31/17 19:00 07:00 Intake Total 1885.334 ml 1185 ml Output Total 155 ml 370 ml Balance 1730.334 ml 815 ml IV Total 1885.334 ml 1185 ml Output Urine Total 155 ml 370 ml # Voids 60 # Bowel Movements 5 1 Laboratory Tests 10/30/17 22:10: Urine Eosinophils None seen, Urine Random Creatinine [Pending], Urine Random Microalbumin [Pending], Urine Random Total Protein 182H, Urine Random Sodium 44 , Urine Creatinine 255.6H, Urine Microalbumin/Creatinine Ratio [Pending] 10/31/17 05:00: White Blood Count 17.6#H, Red Blood Count 4.23, Hemoglobin 12.3, Hematocrit 38.7 , Mean Corpuscular Volume 92, Mean Corpuscular Hemoglobin 29.1, Mean Corpuscular Hemoglobin Concent 31.7L, Red Cell Distribution Width 12.0, Platelet Count 322, Mean Platelet Volume 7.0, Neutrophils (%) (Auto) 78.9H, Lymphocytes (%) (Auto) 14.6L, Monocytes (%) (Auto) 5.7, Eosinophils (%) (Auto) 0.1, Basophils (%) (Auto) 0.7, Prothrombin Time 11.3, Prothromb Time International Ratio 1.1, Activated Partial Thromboplast Time 25, Sodium Level 142, Potassium Level 3.1L, Chloride Level 109H, Carbon Dioxide Level 23, Anion Gap 10, Blood Urea Nitrogen 13, Creatinine 1.2, Estimat Glomerular Filtration Rate 56.1, Glucose Level 188H, Calcium Level 8.7, Phosphorus Level 1.8L, Magnesium Level 1.6L, Total Bilirubin 0.4, Direct Bilirubin < 0.1, Aspartate Amino Transf (AST/SGOT) 128H, Alanine Aminotransferase (ALT/SGPT) 161H, Alkaline Phosphatase 112, Lactate Dehydrogenase 427H, Total Protein 7.0, Albumin 2.7L, Globulin 4.1, Albumin/Globulin Ratio 0.7L, Phenytoin (Dilantin) Level 4.6L, Hepatitis A IgM Antibody [Pending], Hepatitis B Surface Antigen [ Pending], Hepatitis B Core IgM Antibody [Pending], Hepatitis C Antibody [Pending ] 10/31/17 08:00: Arterial Blood pH 7.494H, Arterial Blood Partial Pressure CO2 21.2*L, Arterial Blood Partial Pressure O2 154.9H, Arterial Blood HCO3 15.9L, Arterial Blood Oxygen Saturation 98.2H, Arterial Blood Base Excess -5.4, Aj Test Positive Height (Feet): 5 Height (Inches): 2.00 Weight (Pounds): 105 General Appearance: moderate distress EENT: other - ETT Neck: normal alignment Cardiovascular: tachycardia Respiratory/Chest: decreased breath sounds Abdomen: normal bowel sounds Edema: 1+ Arm (L), 1+ Arm (R), 1+ Leg (L), 1+ Leg (R), 1+ Pedal (L), 1+ Pedal ( R), 1+ Generalized Objective Current Medications Medications (Trade) Dose Ordered Sig/Yung Route PRN Reason Start Time Stop Time Status Last Admin Dose Admin Acetaminophen (Tylenol) 650 mg Q4H PRN RECTAL Prn Headache/Temp > 101 10/30/17 16:45 11/29/17 16:44 10/30/17 16:59 Albuterol/ Ipratropium (Albuterol/ Ipratropium) 3 ml Q4H PRN HHN Shortness of Breath 10/30/17 08:00 11/04/17 07:59 Ceftriaxone Sodium 1 gm/ Dextrose 55 ml @ 110 mls/hr Q24H IVPB 10/31/17 14:00 11/07/17 13:59 10/31/17 15:20 Chlorhexidine Gluconate (Sunita-Hex 2%) 1 applic DAILY@2000 TOPIC 10/30/17 20:00 11/29/17 19:59 10/30/17 20:15 Dextrose (Dextrose 50%) 25 ml STAT PRN IV Hypoglycemia 10/30/17 08:00 11/29/17 07:59 Dextrose (Dextrose 50%) 50 ml STAT PRN IV Hypoglycemia 10/30/17 08:00 11/29/17 07:59 10/31/17 04:31 Dextrose/Sodium Chloride 1,000 ml @ 75 mls/hr [id number] IV 10/31/17 09:30 11/30/17 09:29 10/31/17 10:20 Heparin Sodium (Porcine) (Heparin 5000 units/ml) 5,000 units EVERY 12 HOURS SUBQ 10/30/17 09:00 11/29/17 08:59 10/31/17 09:23 Levetiracetam 100 ml @ 400 mls/hr Q8H IVPB 10/30/17 17:00 11/29/17 16:59 10/31/17 16:35 Lorazepam (Ativan 2mg/ml 1ml) 2 mg Q30MIN PRN IVP For Seizures 10/30/17 09:15 11/06/17 09:14 10/30/17 14:11 Metronidazole 100 ml @ 100 mls/hr Q8H IVPB 10/30/17 11:00 11/06/17 10:59 10/31/17 13:53 Midazolam HCl 100 ml @ 0 mls/hr Q24H IVPB 10/30/17 14:00 11/06/17 13:59 10/31/17 03:09 Morphine Sulfate (Morphine Sulfate) 4 mg Q4H PRN IVP Severe Pain (Pain Scale 7-10) 10/30/17 08:00 11/06/17 07:59 Nitroglycerin (Ntg) 0.4 mg Q5M PRN SL Prn Chest Pain 10/30/17 08:00 11/29/17 07:59 Ondansetron HCl (Zofran) 4 mg Q6H PRN IVP Nausea & Vomiting 10/30/17 08:00 11/29/17 07:59 Phenytoin 100 mg/ Sodium Chloride 57 ml @ 114 mls/hr [id number] PHENYTOIN IVPB 10/30/17 16:00 11/29/17 15:59 10/31/17 17:45 Item Value Date Time Bedside Blood Glucose 92 mg/dl 10/31/17 1600 Bedside Blood Glucose 97 mg/dl 10/31/17 1200 Bedside Blood Glucose 93 mg/dl 10/31/17 0800 Bedside Blood Glucose 53 mg/dl L 10/31/17 0431 Bedside Blood Glucose 114 mg/dl 10/31/17 0030 Salvador Garcia MD Oct 31, 2017 18:24
[2017-10-31] MEDS: Hydrocortisone 100mg Inj IV SCH ×2 (19:43→21:57)
[2017-10-31] MEDS: Dyna-Hex 2% Top Sol 2oz TOPIC SCH (19:44)
[2017-10-31] MEDS: Acetaminophen 650 MG SUPP RECTAL PRN (21:24)
--- NOTE | 2017-10-31 23:30 | Consultation ---
DATE OF CONSULTATION: 10/31/2017 NEUROLOGY CONSULTATION CONSULTING PHYSICIAN: Gunner Lester M.D. REQUESTING PHYSICIAN: Josias Skinner D.O. HISTORY: Ms. Polly Robertson is a 57-year-old, right-handed, black lady, with a long history of polysubstance abuse with recent cocaine use, a seizure disorder, and a chronic pain syndrome. She was apparently found in her home unconscious, having significant respiratory problems, which progressed to cardiac problems as a result of which the paramedics were called in. She had to have cardiopulmonary resuscitation in the field. She was then transported to [facility] emergency room and on the way there she apparently had a generalized tonic-clonic seizure in the ambulance. Following that, she had multiple seizures and was started on Dilantin followed by Keppra and eventually Versed had to be used to stop her seizures. She has been seizure-free since yesterday. At this point in time, the patient is unresponsive and thus no further history can be obtained. PAST MEDICAL HISTORY: Significant for polysubstance abuse with recent cocaine use, seizure disorder, and a chronic pain syndrome. FAMILY HISTORY: Unavailable. PERSONAL HISTORY: Home: She lives with family. Work: Unemployed. Habits: Polysubstance abuse with recent cocaine use. MEDICATIONS: Potassium chloride, ceftriaxone, Keppra 1 g IV q 8 h, Tylenol p.r.n., Dilantin 100 mg IV q 8 h, midazolam drip, metronidazole, lorazepam p.r.n., heparin for DVT prophylaxis, DuoNeb inhaler, nitroglycerin, morphine p.r.n., and Zofran p.r.n. PHYSICAL EXAMINATION: GENERAL: She is a well-developed, cachectic, lean, black lady, lying in an ICU bed, in no acute distress, connected to a ventilator via an orotracheal tube. VITAL SIGNS: Pulse 124/minute, blood pressure 153/84 mmHg, respirations 14/minute, and temperature 99 degrees Fahrenheit. HEAD: Normocephalic and atraumatic. EENT: Examination benign. NECK: No neck rigidity was observed. NEUROLOGIC EXAMINATION: MENTAL STATUS EXAMINATION: She was comatose and only responded to deep painful stimuli with eye opening, but no other response. Further mental status testing was impossible. SPEECH: Could not be tested. LANGUAGE: Could not be tested. CRANIAL NERVE EXAMINATION: II: She did not blink to threat. III, IV & : The external ocular movements were present on oculocephalic maneuvers. The pupils were 3 mm in diameter and reactive sluggishly to light. V & VII: The corneal reflexes were present, but significantly diminished. VIII: She did not respond to sounds and had no nystagmus. IX & X: The gag reflex was absent on manipulating the endotracheal tube. XI: The sternocleidomastoids and trapezii could not be tested. XII: Could not be tested. MOTOR SYSTEM: The tone was normal in all four extremities. Examination of muscle mass revealed generalized muscle wasting. Examination of power was impossible to perform because even on applying deep painful stimuli, no movements were seen. SENSORY EXAMINATION: She responded to deep pain with eye opening, but no other responses. REFLEXES: 1+ and bilaterally symmetrical at the biceps, triceps, brachioradialis, and knees. 0 at both ankles. The plantar responses were extensor bilaterally. COORDINATION, STANCE & GAIT: Could not be tested. DIAGNOSTIC IMPRESSION: 1. Ms. Polly Robertson is a 57-year-old, right-handed, black lady, who does have a past history of polysubstance abuse with her recent drug of choice being cocaine, a seizure disorder, and chronic pain, who was found down in her bathroom at home with vomitus in her mouth. She then was noted to stop breathing and this progressed to cardiac failure. The paramedics were called in and she had to have advanced cardiac life support before she could be resuscitated. She was then transported to the [facility] emergency room and on the way here she was noted to have a generalized seizure. Since then, she has had multiple seizures, however, at this point in time, they are well controlled on the present regimen. 2. On neurological examination, at this time, she is comatose and only responds to deep pain with eye opening, but no other responses. She however does not demonstrate any focal or lateralizing findings. 3. The CT scan of the brain without contrast is benign for acute pathology. 4. Her latest laboratory data revealed that her WBC count is elevated to 17,600 with predominantly 79% being neutrophils and 15% being lymphocytes and monocytes. Her latest arterial blood gas reveals pCO2 low at 21.2, pO2 at 154, and pH of 7.49. Her chemistry panel reveals a creatinine elevated to 1.7. Her AST is elevated at 255, ALT elevated at 251, and alkaline phosphatase elevated at 142. Her albumin is low at 2.9. Her Urinalysis reveals 1+ leukocyte esterase, 20-30 red blood cells, and 5-10 white blood cells per high-power field. The urine toxicology screen is positive for cocaine. 5. The patient's history, neurological examination, laboratory data and imaging studies are most compatible with seizures due to a hypoxic/ischemic cerebral insult and/or cocaine intoxication. RECOMMENDATIONS: 1. Agree with management thus far. 2. Would treat the patient's infectious process vigorously. 3. Continue Dilantin 100 mg intravenously q.8 h. 4. Continue Keppra 1 G intravenously every 8 hours. 5. Wean off Versed when the patient is seizure free. 6. An EEG should be performed to evaluate the patient for ongoing ictal or interictal phenomena. 7. The patient should be observed in the ICU until her condition improves. Thank you for entrusting me with the care of Ms. Robertson. I shall follow her with you. Gunner Lester M.D., M.S.P.H. DR: SOL JOB#: [id number]
--- NOTE | 2017-10-31 23:58 | Cardiology Progress Note ---
Assessment/Plan Assessment/Plan 1. Sinus tachycardia. This could be secondary to cocaine intoxication or due to small pneumothorax. Echo reveals normal left ventricular systolic function with LVEF of approximately 55%. Start low dose of diltiazem. 2. Acute hypoxemia respiratory failure, emergence of small right pneumothorax. 3. Mild pulmonary hypertension with right ventricular systolic pressure measured at 42 mmHg. 4. Seizure disorder 5. Polysubstance abuse. Subjective Subjective Sinus tachycardia at 120. Intubated. Objective Last 24 Hour Vital Signs Date Time Temp Pulse Resp B/P (MAP) Pulse Ox O2 Delivery O2 Flow Rate FiO2 10/31/17 23:00 110 15 120/81 (94) 100 10/31/17 22:52 109 16 30 10/31/17 22:30 118 15 125/81 (96) 100 10/31/17 22:17 14 Mechanical Ventilator 30 10/31/17 22:00 118 15 137/39 (71) 100 10/31/17 21:54 99.8 10/31/17 21:30 120 14 142/88 (106) 100 10/31/17 21:24 101.4 10/31/17 21:00 122 14 138/88 (105) 100 10/31/17 20:56 126 16 30 10/31/17 20:30 120 14 144/88 (106) 100 10/31/17 20:00 99.8 120 14 140/83 (102) 100 99.8 10/31/17 20:00 120 10/31/17 20:00 Mechanical Ventilator 10/31/17 20:00 30 10/31/17 19:00 119 14 145/81 (102) 100 10/31/17 18:53 120 14 30 10/31/17 18:30 123 16 166/90 (115) 100 10/31/17 18:00 119 16 158/84 (108) 100 10/31/17 18:00 14 Mechanical Ventilator 30 10/31/17 17:30 117 14 141/89 (106) 100 10/31/17 17:00 123 14 30 10/31/17 17:00 128 14 154/89 (110) 100 10/31/17 17:00 14 Mechanical Ventilator 30 10/31/17 16:30 124 14 153/84 (107) 99 10/31/17 16:00 30 10/31/17 16:00 Mechanical Ventilator 10/31/17 16:00 14 Mechanical Ventilator 30 10/31/17 16:00 99.0 116 14 154/88 (110) 100 99.0 10/31/17 16:00 117 10/31/17 15:31 117 14 149/85 (106) 100 10/31/17 15:00 116 14 162/85 (110) 100 10/31/17 15:00 14 Mechanical Ventilator 30 10/31/17 14:45 117 16 30 10/31/17 14:30 117 14 145/88 (107) 100 10/31/17 14:00 14 Mechanical Ventilator 30 10/31/17 14:00 121 16 143/89 (107) 100 10/31/17 13:30 122 16 165/88 (113) 100 10/31/17 13:00 14 Mechanical Ventilator 30 10/31/17 13:00 121 16 149/90 (109) 100 10/31/17 12:50 113 16 30 10/31/17 12:30 123 16 149/92 (111) 100 10/31/17 12:00 99.1 120 16 155/95 (115) 100 99.1 10/31/17 12:00 30 10/31/17 12:00 14 Mechanical Ventilator 30 10/31/17 12:00 Mechanical Ventilator 10/31/17 12:00 125 10/31/17 11:30 120 16 166/78 (107) 100 10/31/17 11:00 118 16 154/85 (108) 100 10/31/17 11:00 14 Mechanical Ventilator 10/31/17 10:30 116 16 30 10/31/17 10:30 117 16 154/80 (104) 100 10/31/17 10:00 14 Mechanical Ventilator 30 10/31/17 10:00 117 16 136/80 (98) 100 10/31/17 09:30 119 16 140/80 (100) 100 10/31/17 09:00 14 Mechanical Ventilator 30 10/31/17 09:00 120 16 138/82 (100) 100 10/31/17 08:50 14 Mechanical Ventilator 30 10/31/17 08:45 123 16 40 10/31/17 08:30 122 16 140/82 (101) 100 10/31/17 08:00 125 10/31/17 08:00 14 Mechanical Ventilator 30 10/31/17 08:00 Mechanical Ventilator 10/31/17 08:00 99.8 125 17 160/89 (112) 100 99.8 10/31/17 08:00 30 10/31/17 07:30 127 16 157/96 (116) 100 10/31/17 07:10 127 16 40 10/31/17 07:00 14 Mechanical Ventilator 30 10/31/17 07:00 128 16 146/89 (108) 100 10/31/17 06:00 131 18 142/87 (105) 100 10/31/17 06:00 16 Endotracheal Tube 40 10/31/17 05:30 135 18 172/90 (117) 100 10/31/17 05:00 16 Endotracheal Tube 40 10/31/17 05:00 135 17 163/83 (109) 100 10/31/17 04:56 99.6 10/31/17 04:51 136 19 40 10/31/17 04:30 132 15 134/90 (105) 100 10/31/17 04:00 139 10/31/17 04:00 40 10/31/17 04:00 16 Endotracheal Tube 40 10/31/17 04:00 99.6 130 15 121/80 (94) 100 99.6 10/31/17 04:00 Mechanical Ventilator 10/31/17 03:30 122 15 127/80 (96) 100 10/31/17 03:12 123 16 40 10/31/17 03:09 16 Mechanical Ventilator 40 10/31/17 03:00 123 15 151/80 (103) 100 10/31/17 03:00 16 Endotracheal Tube 40 10/31/17 02:30 122 15 139/75 (96) 100 10/31/17 02:00 123 15 109/63 (78) 100 10/31/17 02:00 15 Mechanical Ventilator 40 10/31/17 01:30 114 16 40 10/31/17 01:30 124 16 120/74 (89) 100 10/31/17 01:00 124 14 133/73 (93) 100 10/31/17 01:00 14 Endotracheal Tube 40 10/31/17 00:30 115 14 148/116 (127) 100 10/31/17 00:00 Mechanical Ventilator 10/31/17 00:00 14 Endotracheal Tube 40 10/31/17 00:00 98.3 114 14 128/72 (90) 100 98.3 10/31/17 00:00 40 Intake and Output 10/30/17 10/31/17 19:00 07:00 Intake Total 1885.334 ml 1185 ml Output Total 155 ml 370 ml Balance 1730.334 ml 815 ml IV Total 1885.334 ml 1185 ml Output Urine Total 155 ml 370 ml # Voids 60 # Bowel Movements 5 1 2D Echo: EF 60-65%, mild LVH, Mild AR, normal LVDD, RVSP 42 mmHg Laboratory Tests Test 10/31/17 05:00 10/31/17 08:00 White Blood Count 17.6 K/UL (4.8-10.8) #H Red Blood Count 4.23 M/UL (4.20-5.40) Hemoglobin 12.3 G/DL (12.0-16.0) Hematocrit 38.7 % (37.0-47.0) Mean Corpuscular Volume 92 FL (80-99) Mean Corpuscular Hemoglobin 29.1 PG (27.0-31.0) Mean Corpuscular Hemoglobin Concent 31.7 G/DL (32.0-36.0) L Red Cell Distribution Width 12.0 % (11.6-14.8) Platelet Count 322 K/UL (150-450) Mean Platelet Volume 7.0 FL (6.5-10.1) Neutrophils (%) (Auto) 78.9 % (45.0-75.0) H Lymphocytes (%) (Auto) 14.6 % (20.0-45.0) L Monocytes (%) (Auto) 5.7 % (1.0-10.0) Eosinophils (%) (Auto) 0.1 % (0.0-3.0) Basophils (%) (Auto) 0.7 % (0.0-2.0) Prothrombin Time 11.3 SEC (9.30-11.50) Prothromb Time International Ratio 1.1 (0.9-1.1) Activated Partial Thromboplast Time 25 SEC (23-33) Sodium Level 142 MMOL/L (136-145) Potassium Level 3.1 MMOL/L (3.5-5.1) L Chloride Level 109 MMOL/L (98-107) H Carbon Dioxide Level 23 MMOL/L (21-32) Anion Gap 10 mmol/L (5-15) Blood Urea Nitrogen 13 mg/dL (7-18) Creatinine 1.2 MG/DL (0.55-1.30) Estimat Glomerular Filtration Rate 56.1 mL/min (>60) Glucose Level 188 MG/DL (74-106) H Calcium Level 8.7 MG/DL (8.5-10.1) Phosphorus Level 1.8 MG/DL (2.5-4.9) L Magnesium Level 1.6 MG/DL (1.8-2.4) L Total Bilirubin 0.4 MG/DL (0.2-1.0) Direct Bilirubin < 0.1 MG/DL (0.0-0.3) Aspartate Amino Transf (AST/SGOT) 128 U/L (15-37) H Alanine Aminotransferase (ALT/SGPT) 161 U/L (12-78) H Alkaline Phosphatase 112 U/L (46-116) Lactate Dehydrogenase 427 U/L (81-234) H Total Protein 7.0 G/DL (6.4-8.2) Albumin 2.7 G/DL (3.4-5.0) L Globulin 4.1 g/dL Albumin/Globulin Ratio 0.7 (1.0-2.7) L Phenytoin (Dilantin) Level 4.6 ug/mL (10-20) L Hepatitis A IgM Antibody Pending Hepatitis B Surface Antigen Pending Hepatitis B Core IgM Antibody Pending Hepatitis C Antibody Pending Arterial Blood pH 7.494 (7.350-7.450) Arterial Blood Partial Pressure CO2 21.2 mmHg (35.0-45.0) *L Arterial Blood Partial Pressure O2 154.9 mmHg (75.0-100.0) H Arterial Blood HCO3 15.9 mmol/L (22.0-26.0) L Arterial Blood Oxygen Saturation 98.2 % (92.0-98.0) H Arterial Blood Base Excess -5.4 Aj Test Positive Microbiology Date/Time Source Procedure Growth Status 10/30/17 11:01 Sputum Induced Gram Stain - Final Resulted 10/30/17 11:01 Sputum Induced Sputum Culture Pending Resulted 10/30/17 07:15 Nasal Nares MRSA Culture - Final NO METHICILLIN RESISTANT STAPH AUREUS... Complete 10/30/17 07:15 Rectum - Preliminary Resulted Objective HEENT: Atraumatic and normocephalic. Anicteric. Pupils are equal, round, and reactive to light and accommodation. NECK: JVP cannot be assessed due to intubation. CARDIOVASCULAR: Normal S1, S2. Tachycardic. No murmurs, gallops, or rubs. LUNGS: Diminished breath sounds in both bases. ABDOMEN: Soft, nontender, and nondistended. Positive bowel sounds. EXTREMITIES: No evidence of edema, clubbing, or cyanosis. Geovany Brown MD Oct 31, 2017 23:58
[2017-11-01] VITALS (34 sets, daily range): BP systolic 121–161; BP diastolic 69–88
[2017-11-01] MEDS ORDERED: dilTIAZem HCl 30mg tab ORAL SCH (00:45)
[2017-11-01] MEDS: levETIRAcetam 1,000mg/NS100ml 100 ML IVPB SCH ×3 (01:05→17:05)
[2017-11-01] MEDS: Hydrocortisone 100mg Inj IV SCH ×3 (05:38→22:13)
[2017-11-01 06:26] LABS: BASOPHILS % (AUTO) 0.5 % (0.0-2.0); HEMOGLOBIN 11.8 G/DL (12.0-16.0); LYMPHOCYTES % (AUTO) 11.4 % (20.0-45.0); MEAN CORPUSCULAR VOLUME 92 FL (80-99); MONOCYTES % (AUTO) 6.1 % (1.0-10.0); PLATELET COUNT 287 K/UL (150-450); RED BLOOD COUNT 4.01 M/UL (4.20-5.40)
[2017-11-01 06:40] LABS: ALANINE AMINOTRANSFERASE 115 U/L (12-78); ALBUMIN 2.7 G/DL (3.4-5.0); ALKALINE PHOSPHATASE 104 U/L (46-116); ANION GAP 9 mmol/L (5-15); ASPARTATE AMINO TRANSFERASE 105 U/L (15-37); BILIRUBIN,TOTAL 0.2 MG/DL (0.2-1.0); BLOOD UREA NITROGEN 9 mg/dL (7-18); CARBON DIOXIDE 23 MMOL/L (21-32); CHLORIDE 109 MMOL/L (98-107); CREATININE 1.1 MG/DL (0.55-1.30); POTASSIUM 3.5 MMOL/L (3.5-5.1); SODIUM 140 MMOL/L (136-145)
--- NOTE | 2017-11-01 07:05 | General Progress Note ---
Assessment/Plan Problem List: (1) Hypoglycemia ICD Codes: E16.2 - Hypoglycemia, unspecified SNOMED: 596067164 (2) SLE (systemic lupus erythematosus) ICD Codes: M32.9 - Systemic lupus erythematosus, unspecified SNOMED: 11287694 (3) Cocaine abuse ICD Codes: F14.10 - Cocaine abuse, uncomplicated SNOMED: 58980608 (4) Elevated transaminase measurement ICD Codes: R74.0 - Nonspecific elevation of levels of transaminase and lactic acid dehydrogenase [LDH] SNOMED: 335872488, 779027625 (5) Diabetes ICD Codes: E11.9 - Type 2 diabetes mellitus without complications SNOMED: 69297178 Assessment/Plan - reduce SoluCortef 100 to 50 mg every 8 hours - continue dextrose infusion until glucose is > 200 mg/dL - continue BG monitoring - hypoglycemia protocol Subjective ROS Limited/Unobtainable: Yes Allergies: Coded Allergies: ASPIRIN (Verified Allergy, Unknown, 10/30/17) PENICILLINS (Verified Allergy, Unknown, 10/30/17) UNABLE TO ASSESS (Unverified , 10/29/17) Subjective intubated in icu no more hypoglycemia Objective Last 24 Hour Vital Signs Date Time Temp Pulse Resp B/P (MAP) Pulse Ox O2 Delivery O2 Flow Rate FiO2 11/01/17 06:30 113 14 158/85 (109) 100 11/01/17 06:00 114 14 150/83 (105) 100 11/01/17 06:00 14 Mechanical Ventilator 30 11/01/17 05:30 105 14 145/83 (103) 100 11/01/17 05:00 105 14 140/83 (102) 100 11/01/17 05:00 14 Mechanical Ventilator 30 11/01/17 04:55 99 19 30 11/01/17 04:30 108 14 143/83 (103) 100 11/01/17 04:00 104 11/01/17 04:00 30 11/01/17 04:00 98.8 104 14 144/86 (105) 100 98.8 11/01/17 04:00 Mechanical Ventilator 11/01/17 04:00 14 Mechanical Ventilator 30 11/01/17 03:30 101 14 143/84 (103) 100 11/01/17 03:00 14 Mechanical Ventilator 30 11/01/17 03:00 98 14 145/83 (103) 100 11/01/17 02:54 99 16 30 11/01/17 02:30 100 14 130/82 (98) 100 11/01/17 02:00 100 14 136/80 (98) 99 11/01/17 02:00 14 Mechanical Ventilator 30 11/01/17 01:30 101 14 127/69 (88) 99 11/01/17 01:00 14 Mechanical Ventilator 30 11/01/17 01:00 104 14 121/70 (87) 99 11/01/17 00:46 105 16 30 11/01/17 00:45 102 121/70 11/01/17 00:00 99.9 102 14 125/81 (96) 100 99.9 11/01/17 00:00 Mechanical Ventilator 11/01/17 00:00 15 Mechanical Ventilator 30 10/31/17 23:00 110 15 120/81 (94) 100 10/31/17 23:00 15 Mechanical Ventilator 30 10/31/17 22:52 109 16 30 10/31/17 22:30 118 15 125/81 (96) 100 10/31/17 22:17 14 Mechanical Ventilator 30 10/31/17 22:00 118 15 137/39 (71) 100 10/31/17 21:54 99.8 10/31/17 21:30 120 14 142/88 (106) 100 10/31/17 21:24 101.4 10/31/17 21:00 122 14 138/88 (105) 100 10/31/17 20:56 126 16 30 10/31/17 20:30 120 14 144/88 (106) 100 10/31/17 20:00 99.8 120 14 140/83 (102) 100 99.8 10/31/17 20:00 14 Mechanical Ventilator 30 10/31/17 20:00 120 10/31/17 20:00 Mechanical Ventilator 10/31/17 20:00 30 10/31/17 19:00 119 14 145/81 (102) 100 10/31/17 18:53 120 14 30 10/31/17 18:30 123 16 166/90 (115) 100 10/31/17 18:00 119 16 158/84 (108) 100 10/31/17 18:00 14 Mechanical Ventilator 30 10/31/17 17:30 117 14 141/89 (106) 100 10/31/17 17:00 123 14 30 10/31/17 17:00 128 14 154/89 (110) 100 10/31/17 17:00 14 Mechanical Ventilator 30 10/31/17 16:30 124 14 153/84 (107) 99 10/31/17 16:00 30 10/31/17 16:00 Mechanical Ventilator 10/31/17 16:00 14 Mechanical Ventilator 30 10/31/17 16:00 99.0 116 14 154/88 (110) 100 99.0 10/31/17 16:00 117 10/31/17 15:31 117 14 149/85 (106) 100 10/31/17 15:00 116 14 162/85 (110) 100 10/31/17 15:00 14 Mechanical Ventilator 30 10/31/17 14:45 117 16 30 10/31/17 14:30 117 14 145/88 (107) 100 10/31/17 14:00 14 Mechanical Ventilator 10/31/17 14:00 121 16 143/89 (107) 100 10/31/17 13:30 122 16 165/88 (113) 100 10/31/17 13:00 14 Mechanical Ventilator 30 10/31/17 13:00 121 16 149/90 (109) 100 10/31/17 12:50 113 16 30 10/31/17 12:30 123 16 149/92 (111) 100 10/31/17 12:00 99.1 120 16 155/95 (115) 100 99.1 10/31/17 12:00 30 10/31/17 12:00 14 Mechanical Ventilator 30 10/31/17 12:00 Mechanical Ventilator 10/31/17 12:00 125 10/31/17 11:30 120 16 166/78 (107) 100 10/31/17 11:00 118 16 154/85 (108) 100 10/31/17 11:00 14 Mechanical Ventilator 10/31/17 10:30 116 16 30 10/31/17 10:30 117 16 154/80 (104) 100 10/31/17 10:00 14 Mechanical Ventilator 30 10/31/17 10:00 117 16 136/80 (98) 100 10/31/17 09:30 119 16 140/80 (100) 100 10/31/17 09:00 14 Mechanical Ventilator 30 10/31/17 09:00 120 16 138/82 (100) 100 10/31/17 08:50 14 Mechanical Ventilator 30 10/31/17 08:45 123 16 40 10/31/17 08:30 122 16 140/82 (101) 100 10/31/17 08:00 125 10/31/17 08:00 14 Mechanical Ventilator 30 10/31/17 08:00 Mechanical Ventilator 10/31/17 08:00 99.8 125 17 160/89 (112) 100 99.8 10/31/17 08:00 30 10/31/17 07:30 127 16 157/96 (116) 100 10/31/17 07:10 127 16 40 Intake and Output 10/31/17 11/01/17 19:00 07:00 Intake Total 1453 ml 1279 ml Output Total 400 ml 1040 ml Balance 1053 ml 239 ml IV Total 1453 ml 1279 ml Output Urine Total 400 ml 1040 ml # Bowel Movements 4 Laboratory Tests 10/31/17 08:00: Arterial Blood pH 7.494H, Arterial Blood Partial Pressure CO2 21.2*L, Arterial Blood Partial Pressure O2 154.9H, Arterial Blood HCO3 15.9L, Arterial Blood Oxygen Saturation 98.2H, Arterial Blood Base Excess -5.4, Aj Test Positive 11/01/17 05:45: White Blood Count 16.0H, Red Blood Count 4.01L, Hemoglobin 11.8L, Hematocrit 37.0, Mean Corpuscular Volume 92, Mean Corpuscular Hemoglobin 29.4, Mean Corpuscular Hemoglobin Concent 31.9L, Red Cell Distribution Width 12.0, Platelet Count 287, Mean Platelet Volume 6.6, Neutrophils (%) (Auto) 82.0H, Lymphocytes (%) (Auto) 11.4L, Monocytes (%) (Auto) 6.1, Eosinophils (%) (Auto) 0.0, Basophils (%) (Auto) 0.5, Sodium Level 140, Potassium Level 3.5, Chloride Level 109H, Carbon Dioxide Level 23, Anion Gap 9, Blood Urea Nitrogen 9, Creatinine 1.1, Estimat Glomerular Filtration Rate > 60, Glucose Level 127H, Calcium Level 9.0, Magnesium Level 1.6L, Total Bilirubin 0.2, Aspartate Amino Transf (AST/SGOT) 105H, Alanine Aminotransferase (ALT/SGPT) 115H, Alkaline Phosphatase 104, Total Protein [Pending], Albumin 2.7L, Globulin [Pending] Height (Feet): 5 Height (Inches): 2.00 Weight (Pounds): 105 General Appearance: moderate distress Neck: other - ETT Cardiovascular: tachycardia Respiratory/Chest: decreased breath sounds Abdomen: normal bowel sounds Pelvis: normal external exam Objective Current Medications Medications (Trade) Dose Ordered Sig/Yung Route PRN Reason Start Time Stop Time Status Last Admin Dose Admin Acetaminophen (Tylenol) 650 mg Q4H PRN RECTAL Prn Headache/Temp > 101 10/30/17 16:45 11/29/17 16:44 10/31/17 21:24 Albuterol/ Ipratropium (Albuterol/ Ipratropium) 3 ml Q4H PRN HHN Shortness of Breath 10/30/17 08:00 11/04/17 07:59 Ceftriaxone Sodium 1 gm/ Dextrose 55 ml @ 110 mls/hr Q24H IVPB 10/31/17 14:00 11/07/17 13:59 10/31/17 15:20 Chlorhexidine Gluconate (Sunita-Hex 2%) 1 applic DAILY@2000 TOPIC 10/30/17 20:00 11/29/17 19:59 10/31/17 19:44 Dextrose (Dextrose 50%) 25 ml STAT PRN IV Hypoglycemia 10/30/17 08:00 11/29/17 07:59 Dextrose (Dextrose 50%) 50 ml STAT PRN IV Hypoglycemia 10/30/17 08:00 11/29/17 07:59 10/31/17 04:31 Dextrose/Sodium Chloride 1,000 ml @ 75 mls/hr [id number] IV 10/31/17 09:30 11/30/17 09:29 10/31/17 23:58 Heparin Sodium (Porcine) (Heparin 5000 units/ml) 5,000 units EVERY 12 HOURS SUBQ 10/30/17 09:00 11/29/17 08:59 10/31/17 21:09 Hydrocortisone (Solu-CORTEF) 100 mg EVERY 8 HOURS IV 10/31/17 18:30 11/30/17 18:29 11/01/17 05:38 Levetiracetam 100 ml @ 400 mls/hr Q8H IVPB 10/30/17 17:00 11/29/17 16:59 11/01/17 01:05 Lorazepam (Ativan 2mg/ml 1ml) 2 mg Q30MIN PRN IVP For Seizures 10/30/17 09:15 11/06/17 09:14 10/30/17 14:11 Metronidazole 100 ml @ 100 mls/hr Q8H IVPB 10/30/17 11:00 11/06/17 10:59 11/01/17 02:47 Midazolam HCl 100 ml @ 0 mls/hr Q24H IVPB 10/30/17 14:00 11/06/17 13:59 10/31/17 22:17 Morphine Sulfate (Morphine Sulfate) 4 mg Q4H PRN IVP Severe Pain (Pain Scale 7-10) 10/30/17 08:00 11/06/17 07:59 Nitroglycerin (Ntg) 0.4 mg Q5M PRN SL Prn Chest Pain 10/30/17 08:00 11/29/17 07:59 Ondansetron HCl (Zofran) 4 mg Q6H PRN IVP Nausea & Vomiting 10/30/17 08:00 11/29/17 07:59 Phenytoin 100 mg/ Sodium Chloride 57 ml @ 114 mls/hr [id number] PHENYTOIN IVPB 10/30/17 16:00 11/29/17 15:59 10/31/17 23:58 Item Value Date Time Bedside Blood Glucose 123 mg/dl H 11/01/17 0400 Bedside Blood Glucose 129 mg/dl H 11/01/17 0000 Bedside Blood Glucose 110 mg/dl 10/31/17 2000 Bedside Blood Glucose 92 mg/dl 10/31/17 1600 Bedside Blood Glucose 97 mg/dl 10/31/17 1200 Bedside Blood Glucose 93 mg/dl 10/31/17 0800 Bedside Blood Glucose 53 mg/dl L 10/31/17 0431 Salvador Garcia MD Nov 01, 2017 07:05
[2017-11-01] MEDS: Phenytoin 100 MG in NS 55 ML IVPB SCH ×2 (08:00→16:00)
--- NOTE | 2017-11-01 08:45 | Infectious Diseases Prog Note ---
Assessment/Plan Assessment/Plan 57 yo female who presented to the ED on 10/30/17 after pulmonary arrest. Sepsis - Probable Asp PNA and UTI On Abx f/u Sputum Cultures f/u Urine Cx Leukocytosis - WBCs 16 after seizure No Fevers Seizures - Had Seizure on route to ED 10/30/17 and in the ICU as well Drug abuse - Pos for cocaine Arthritis Chronic pain. P: Continue Ceftriaxone #1 and Flagyl #2for asp PNA and UTI Ceftriaxone has good Gp and Gn coverage. She was given a dose in the ED and had no adverse reaction. 10/31 Vancomycin #1 10/31 Aztreonam 10/30 SP Ceftriaxone f/u U and S Cx Monitor CBC and Temps Vent management per pulm We will continue to follow the patient during this hospitalization. Subjective Allergies: Coded Allergies: ASPIRIN (Verified Allergy, Unknown, 10/30/17) PENICILLINS (Verified Allergy, Unknown, 10/30/17) UNABLE TO ASSESS (Unverified , 10/29/17) Subjective Patient intubated and sedated Febrile overnight On 30% FiO2 Objective Vital Signs Last 24 Hour Vital Signs Date Time Temp Pulse Resp B/P (MAP) Pulse Ox O2 Delivery O2 Flow Rate FiO2 11/01/17 07:11 124 23 30 11/01/17 07:00 115 14 154/88 (110) 100 11/01/17 07:00 14 Mechanical Ventilator 30 11/01/17 06:30 113 14 158/85 (109) 100 11/01/17 06:00 114 14 150/83 (105) 100 11/01/17 06:00 14 Mechanical Ventilator 30 11/01/17 05:30 105 14 145/83 (103) 100 11/01/17 05:00 105 14 140/83 (102) 100 11/01/17 05:00 14 Mechanical Ventilator 30 11/01/17 04:55 99 19 30 11/01/17 04:30 108 14 143/83 (103) 100 11/01/17 04:00 104 11/01/17 04:00 30 11/01/17 04:00 98.8 104 14 144/86 (105) 100 98.8 11/01/17 04:00 Mechanical Ventilator 11/01/17 04:00 14 Mechanical Ventilator 30 11/01/17 03:30 101 14 143/84 (103) 100 11/01/17 03:00 14 Mechanical Ventilator 30 11/01/17 03:00 98 14 145/83 (103) 100 11/01/17 02:54 99 16 30 11/01/17 02:30 100 14 130/82 (98) 100 11/01/17 02:00 100 14 136/80 (98) 99 11/01/17 02:00 14 Mechanical Ventilator 30 11/01/17 01:30 101 14 127/69 (88) 99 11/01/17 01:00 14 Mechanical Ventilator 30 11/01/17 01:00 104 14 121/70 (87) 99 11/01/17 00:46 105 16 30 11/01/17 00:45 102 121/70 11/01/17 00:00 99.9 102 14 125/81 (96) 100 99.9 11/01/17 00:00 Mechanical Ventilator 11/01/17 00:00 15 Mechanical Ventilator 30 10/31/17 23:00 110 15 120/81 (94) 100 10/31/17 23:00 15 Mechanical Ventilator 30 10/31/17 22:52 109 16 30 10/31/17 22:30 118 15 125/81 (96) 100 10/31/17 22:17 14 Mechanical Ventilator 30 10/31/17 22:00 118 15 137/39 (71) 100 10/31/17 21:54 99.8 10/31/17 21:30 120 14 142/88 (106) 100 10/31/17 21:24 101.4 10/31/17 21:00 122 14 138/88 (105) 100 10/31/17 20:56 126 16 30 10/31/17 20:30 120 14 144/88 (106) 100 10/31/17 20:00 99.8 120 14 140/83 (102) 100 99.8 10/31/17 20:00 14 Mechanical Ventilator 30 10/31/17 20:00 120 10/31/17 20:00 Mechanical Ventilator 10/31/17 20:00 30 10/31/17 19:00 119 14 145/81 (102) 100 10/31/17 18:53 120 14 30 10/31/17 18:30 123 16 166/90 (115) 100 10/31/17 18:00 119 16 158/84 (108) 100 10/31/17 18:00 14 Mechanical Ventilator 30 10/31/17 17:30 117 14 141/89 (106) 100 10/31/17 17:00 123 14 30 10/31/17 17:00 128 14 154/89 (110) 100 10/31/17 17:00 14 Mechanical Ventilator 30 10/31/17 16:30 124 14 153/84 (107) 99 10/31/17 16:00 30 10/31/17 16:00 Mechanical Ventilator 10/31/17 16:00 14 Mechanical Ventilator 30 10/31/17 16:00 99.0 116 14 154/88 (110) 100 99.0 10/31/17 16:00 117 10/31/17 15:31 117 14 149/85 (106) 100 10/31/17 15:00 116 14 162/85 (110) 100 10/31/17 15:00 14 Mechanical Ventilator 30 10/31/17 14:45 117 16 30 10/31/17 14:30 117 14 145/88 (107) 100 10/31/17 14:00 14 Mechanical Ventilator 30 10/31/17 14:00 121 16 143/89 (107) 100 10/31/17 13:30 122 16 165/88 (113) 100 10/31/17 13:00 14 Mechanical Ventilator 10/31/17 13:00 121 16 149/90 (109) 100 10/31/17 12:50 113 16 30 10/31/17 12:30 123 16 149/92 (111) 100 10/31/17 12:00 99.1 120 16 155/95 (115) 100 99.1 10/31/17 12:00 30 10/31/17 12:00 14 Mechanical Ventilator 10/31/17 12:00 Mechanical Ventilator 10/31/17 12:00 125 10/31/17 11:30 120 16 166/78 (107) 100 10/31/17 11:00 118 16 154/85 (108) 100 10/31/17 11:00 14 Mechanical Ventilator 30 10/31/17 10:30 116 16 30 10/31/17 10:30 117 16 154/80 (104) 100 10/31/17 10:00 14 Mechanical Ventilator 30 10/31/17 10:00 117 16 136/80 (98) 100 10/31/17 09:30 119 16 140/80 (100) 100 10/31/17 09:00 14 Mechanical Ventilator 30 10/31/17 09:00 120 16 138/82 (100) 100 10/31/17 08:50 14 Mechanical Ventilator 30 10/31/17 08:45 123 16 40 Height (Feet): 5 Height (Inches): 2.00 Weight (Pounds): 105 Objective Gen: NAD, intubated on Vent HEENT: NCAT, MMM, PERRL, No Oral lesion, no scleral icterus, Missing multiple teeth LUNGS: Mechanical breath sounds with course rhonchi B/L CARDS: RRR, S1, S2, No M/R/G, ABD: Soft, NT, ND, No R/G, + BS Ext: C/C/E, Pulses 2+ B/L (DP, Rad): NEURO: Sedated but responds to touch Microbiology Date/Time Source Procedure Growth Status 10/30/17 11:01 Sputum Induced Gram Stain - Final Resulted 10/30/17 11:01 Sputum Culture - Preliminary Gram Negative Bacillus 1 Usual Respiratory Maria Elena Resulted 10/30/17 07:15 Nasal Nares MRSA Culture - Final NO METHICILLIN RESISTANT STAPH AUREUS... Complete 10/31/17 16:10 Indwelling Cath Urine Culture - Preliminary NO GROWTH Resulted 10/30/17 07:15 Rectum VRE Culture - Final NO VANCOMYCIN RESISTANT ENTEROCOCCUS ... Complete 10/30/17 07:15 Rectum - Final NO CARBAPENEM-RESISTANT ENTEROBACTERI... Complete Laboratory Tests Test 11/01/17 05:45 White Blood Count 16.0 K/UL (4.8-10.8) H Red Blood Count 4.01 M/UL (4.20-5.40) L Hemoglobin 11.8 G/DL (12.0-16.0) L Hematocrit 37.0 % (37.0-47.0) Mean Corpuscular Volume 92 FL (80-99) Mean Corpuscular Hemoglobin 29.4 PG (27.0-31.0) Mean Corpuscular Hemoglobin Concent 31.9 G/DL (32.0-36.0) L Red Cell Distribution Width 12.0 % (11.6-14.8) Platelet Count 287 K/UL (150-450) Mean Platelet Volume 6.6 FL (6.5-10.1) Neutrophils (%) (Auto) 82.0 % (45.0-75.0) H Lymphocytes (%) (Auto) 11.4 % (20.0-45.0) L Monocytes (%) (Auto) 6.1 % (1.0-10.0) Eosinophils (%) (Auto) 0.0 % (0.0-3.0) Basophils (%) (Auto) 0.5 % (0.0-2.0) Sodium Level 140 MMOL/L (136-145) Potassium Level 3.5 MMOL/L (3.5-5.1) Chloride Level 109 MMOL/L (98-107) H Carbon Dioxide Level 23 MMOL/L (21-32) Anion Gap 9 mmol/L (5-15) Blood Urea Nitrogen 9 mg/dL (7-18) Creatinine 1.1 MG/DL (0.55-1.30) Estimat Glomerular Filtration Rate > 60 mL/min (>60) Glucose Level 127 MG/DL (74-106) H Calcium Level 9.0 MG/DL (8.5-10.1) Magnesium Level 1.6 MG/DL (1.8-2.4) L Total Bilirubin 0.2 MG/DL (0.2-1.0) Aspartate Amino Transf (AST/SGOT) 105 U/L (15-37) H Alanine Aminotransferase (ALT/SGPT) 115 U/L (12-78) H Alkaline Phosphatase 104 U/L (46-116) Total Protein Pending Albumin 2.7 G/DL (3.4-5.0) L Globulin Pending Current Medications Medications (Trade) Dose Ordered Sig/Yung Route PRN Reason Start Time Stop Time Status Last Admin Dose Admin Acetaminophen (Tylenol) 650 mg Q4H PRN RECTAL Prn Headache/Temp > 101 10/30/17 16:45 11/29/17 16:44 10/31/17 21:24 Albuterol/ Ipratropium (Albuterol/ Ipratropium) 3 ml Q4H PRN HHN Shortness of Breath 10/30/17 08:00 11/04/17 07:59 Ceftriaxone Sodium 1 gm/ Dextrose 55 ml @ 110 mls/hr Q24H IVPB 10/31/17 14:00 11/07/17 13:59 10/31/17 15:20 Chlorhexidine Gluconate (Sunita-Hex 2%) 1 applic DAILY@2000 TOPIC 10/30/17 20:00 11/29/17 19:59 10/31/17 19:44 Dextrose (Dextrose 50%) 25 ml STAT PRN IV Hypoglycemia 10/30/17 08:00 11/29/17 07:59 Dextrose (Dextrose 50%) 50 ml STAT PRN IV Hypoglycemia 10/30/17 08:00 11/29/17 07:59 10/31/17 04:31 Dextrose/Sodium Chloride 1,000 ml @ 75 mls/hr [id number] IV 10/31/17 09:30 11/30/17 09:29 10/31/17 23:58 Heparin Sodium (Porcine) (Heparin 5000 units/ml) 5,000 units EVERY 12 HOURS SUBQ 10/30/17 09:00 11/29/17 08:59 10/31/17 21:09 Hydrocortisone (Solu-CORTEF) 50 mg EVERY 8 HOURS IV 11/01/17 14:00 11/30/17 18:29 Levetiracetam 100 ml @ 400 mls/hr Q8H IVPB 10/30/17 17:00 11/29/17 16:59 11/01/17 01:05 Lorazepam (Ativan 2mg/ml 1ml) 2 mg Q30MIN PRN IVP For Seizures 10/30/17 09:15 11/06/17 09:14 10/30/17 14:11 Metronidazole 100 ml @ 100 mls/hr Q8H IVPB 10/30/17 11:00 11/06/17 10:59 11/01/17 02:47 Midazolam HCl 100 ml @ 0 mls/hr Q24H IVPB 10/30/17 14:00 11/06/17 13:59 10/31/17 22:17 Morphine Sulfate (Morphine Sulfate) 4 mg Q4H PRN IVP Severe Pain (Pain Scale 7-10) 10/30/17 08:00 11/06/17 07:59 Nitroglycerin (Ntg) 0.4 mg Q5M PRN SL Prn Chest Pain 10/30/17 08:00 11/29/17 07:59 Ondansetron HCl (Zofran) 4 mg Q6H PRN IVP Nausea & Vomiting 10/30/17 08:00 11/29/17 07:59 Phenytoin 100 mg/ Sodium Chloride 57 ml @ 114 mls/hr [id number] PHENYTOIN IVPB 10/30/17 16:00 11/29/17 15:59 10/31/17 23:58 Gutierrez Sifuentes MD Nov 01, 2017 08:45
--- NOTE | 2017-11-01 09:04 | Pulmonolgy Critical Care Note ---
Critical Care - Asmt/Plan Problems: (1) Respiratory failure (2) Seizure (3) Encephalopathy (4) Pneumothorax on right (5) Diabetes (6) Cocaine abuse Respiratory: monitor respiratory rate, adjust FIO2, CXR Cardiac: continue to monitor HR/BP Renal: F/U I&O, keep IV fluid Infectious Disease: check cultures, continue antibiotics Gastrointestinal: start feedings Endocrine: monitor blood sugar Hematologic: monitor H/H Neurologic: PRN Morphine Affect: PRN ativan Prophylaxis: Protonix Time Spent (Minutes): 40 Notes Reviewed: cardio, renal Discussed with: nurses, consultants, case management assistantpublic policy manager - Objective Last 24 Hour Vital Signs Date Time Temp Pulse Resp B/P (MAP) Pulse Ox O2 Delivery O2 Flow Rate FiO2 11/01/17 07:11 124 23 30 11/01/17 07:00 115 14 154/88 (110) 100 11/01/17 07:00 14 Mechanical Ventilator 30 11/01/17 06:30 113 14 158/85 (109) 100 11/01/17 06:00 114 14 150/83 (105) 100 11/01/17 06:00 14 Mechanical Ventilator 30 11/01/17 05:30 105 14 145/83 (103) 100 11/01/17 05:00 105 14 140/83 (102) 100 11/01/17 05:00 14 Mechanical Ventilator 30 11/01/17 04:55 99 19 30 11/01/17 04:30 108 14 143/83 (103) 100 11/01/17 04:00 104 11/01/17 04:00 30 11/01/17 04:00 98.8 104 14 144/86 (105) 100 98.8 11/01/17 04:00 Mechanical Ventilator 11/01/17 04:00 14 Mechanical Ventilator 30 11/01/17 03:30 101 14 143/84 (103) 100 11/01/17 03:00 14 Mechanical Ventilator 30 11/01/17 03:00 98 14 145/83 (103) 100 11/01/17 02:54 99 16 30 11/01/17 02:30 100 14 130/82 (98) 100 11/01/17 02:00 100 14 136/80 (98) 99 11/01/17 02:00 14 Mechanical Ventilator 30 11/01/17 01:30 101 14 127/69 (88) 99 11/01/17 01:00 14 Mechanical Ventilator 30 11/01/17 01:00 104 14 121/70 (87) 99 11/01/17 00:46 105 16 30 11/01/17 00:45 102 121/70 11/01/17 00:00 99.9 102 14 125/81 (96) 100 99.9 11/01/17 00:00 Mechanical Ventilator 11/01/17 00:00 15 Mechanical Ventilator 30 10/31/17 23:00 110 15 120/81 (94) 100 10/31/17 23:00 15 Mechanical Ventilator 30 10/31/17 22:52 109 16 30 10/31/17 22:30 118 15 125/81 (96) 100 10/31/17 22:17 14 Mechanical Ventilator 30 10/31/17 22:00 118 15 137/39 (71) 100 10/31/17 21:54 99.8 10/31/17 21:30 120 14 142/88 (106) 100 10/31/17 21:24 101.4 10/31/17 21:00 122 14 138/88 (105) 100 10/31/17 20:56 126 16 30 10/31/17 20:30 120 14 144/88 (106) 100 10/31/17 20:00 99.8 120 14 140/83 (102) 100 99.8 10/31/17 20:00 14 Mechanical Ventilator 30 10/31/17 20:00 120 10/31/17 20:00 Mechanical Ventilator 10/31/17 20:00 30 10/31/17 19:00 119 14 145/81 (102) 100 10/31/17 18:53 120 14 30 10/31/17 18:30 123 16 166/90 (115) 100 10/31/17 18:00 119 16 158/84 (108) 100 10/31/17 18:00 14 Mechanical Ventilator 30 10/31/17 17:30 117 14 141/89 (106) 100 10/31/17 17:00 123 14 30 10/31/17 17:00 128 14 154/89 (110) 100 10/31/17 17:00 14 Mechanical Ventilator 30 10/31/17 16:30 124 14 153/84 (107) 99 10/31/17 16:00 30 10/31/17 16:00 Mechanical Ventilator 10/31/17 16:00 14 Mechanical Ventilator 30 10/31/17 16:00 99.0 116 14 154/88 (110) 100 99.0 10/31/17 16:00 117 10/31/17 15:31 117 14 149/85 (106) 100 10/31/17 15:00 116 14 162/85 (110) 100 10/31/17 15:00 14 Mechanical Ventilator 30 10/31/17 14:45 117 16 30 10/31/17 14:30 117 14 145/88 (107) 100 10/31/17 14:00 14 Mechanical Ventilator 30 10/31/17 14:00 121 16 143/89 (107) 100 10/31/17 13:30 122 16 165/88 (113) 100 10/31/17 13:00 14 Mechanical Ventilator 10/31/17 13:00 121 16 149/90 (109) 100 10/31/17 12:50 113 16 30 10/31/17 12:30 123 16 149/92 (111) 100 10/31/17 12:00 99.1 120 16 155/95 (115) 100 99.1 10/31/17 12:00 30 10/31/17 12:00 14 Mechanical Ventilator 30 10/31/17 12:00 Mechanical Ventilator 10/31/17 12:00 125 10/31/17 11:30 120 16 166/78 (107) 100 10/31/17 11:00 118 16 154/85 (108) 100 10/31/17 11:00 14 Mechanical Ventilator 10/31/17 10:30 116 16 30 10/31/17 10:30 117 16 154/80 (104) 100 10/31/17 10:00 14 Mechanical Ventilator 30 10/31/17 10:00 117 16 136/80 (98) 100 10/31/17 09:30 119 16 140/80 (100) 100 Status: sedated Condition: critical HEENT: atraumatic Neck: full ROM Lungs: chest wall tender Abdomen: non-tender, active bowel sounds Extremities: no C/C/E Micro: Microbiology Date/Time Source Procedure Growth Status 10/30/17 11:01 Sputum Induced Gram Stain - Final Resulted 10/30/17 11:01 Sputum Culture - Preliminary Gram Negative Bacillus 1 Usual Respiratory Maria Elena Resulted 10/30/17 07:15 Nasal Nares MRSA Culture - Final NO METHICILLIN RESISTANT STAPH AUREUS... Complete 10/31/17 16:10 Indwelling Cath Urine Culture - Preliminary NO GROWTH Resulted 10/30/17 07:15 Rectum VRE Culture - Final NO VANCOMYCIN RESISTANT ENTEROCOCCUS ... Complete 10/30/17 07:15 Rectum - Final NO CARBAPENEM-RESISTANT ENTEROBACTERI... Complete Accucheck: 102 Critical Care - Subjective ROS Limited/Unobtainable: Yes ICU Day: 3 EKG Rhythm: Sinus Rhythm FI02: 30 Vent Support Breath Rate: 16 Vent Support Mode: AC Vent Tidal Volume: 600 Sputum Amount: Large PIP: 16 I&O: Intake and Output 10/31/17 11/01/17 19:00 07:00 Intake Total 1453 ml 1359 ml Output Total 400 ml 1100 ml Balance 1053 ml 259 ml IV Total 1453 ml 1359 ml Output Urine Total 400 ml 1100 ml # Bowel Movements 4 CXR: chest tube in place ET-Tube: 7.5 ET Position: 23 Labs: Laboratory Tests Test 11/01/17 05:45 11/01/17 08:50 White Blood Count 16.0 K/UL (4.8-10.8) H Red Blood Count 4.01 M/UL (4.20-5.40) L Hemoglobin 11.8 G/DL (12.0-16.0) L Hematocrit 37.0 % (37.0-47.0) Mean Corpuscular Volume 92 FL (80-99) Mean Corpuscular Hemoglobin 29.4 PG (27.0-31.0) Mean Corpuscular Hemoglobin Concent 31.9 G/DL (32.0-36.0) L Red Cell Distribution Width 12.0 % (11.6-14.8) Platelet Count 287 K/UL (150-450) Mean Platelet Volume 6.6 FL (6.5-10.1) Neutrophils (%) (Auto) 82.0 % (45.0-75.0) H Lymphocytes (%) (Auto) 11.4 % (20.0-45.0) L Monocytes (%) (Auto) 6.1 % (1.0-10.0) Eosinophils (%) (Auto) 0.0 % (0.0-3.0) Basophils (%) (Auto) 0.5 % (0.0-2.0) Sodium Level 140 MMOL/L (136-145) Potassium Level 3.5 MMOL/L (3.5-5.1) Chloride Level 109 MMOL/L (98-107) H Carbon Dioxide Level 23 MMOL/L (21-32) Anion Gap 9 mmol/L (5-15) Blood Urea Nitrogen 9 mg/dL (7-18) Creatinine 1.1 MG/DL (0.55-1.30) Estimat Glomerular Filtration Rate > 60 mL/min (>60) Glucose Level 127 MG/DL (74-106) H Calcium Level 9.0 MG/DL (8.5-10.1) Magnesium Level 1.6 MG/DL (1.8-2.4) L Total Bilirubin 0.2 MG/DL (0.2-1.0) Aspartate Amino Transf (AST/SGOT) 105 U/L (15-37) H Alanine Aminotransferase (ALT/SGPT) 115 U/L (12-78) H Alkaline Phosphatase 104 U/L (46-116) Total Protein 7.2 G/DL (6.4-8.2) Albumin 2.7 G/DL (3.4-5.0) L Globulin 4.5 g/dL Arterial Blood pH 7.452 (7.350-7.450) Arterial Blood Partial Pressure CO2 27.8 mmHg (35.0-45.0) L Arterial Blood Partial Pressure O2 128.3 mmHg (75.0-100.0) H Arterial Blood HCO3 19.0 mmol/L (22.0-26.0) L Arterial Blood Oxygen Saturation 97.8 % (92.0-98.0) Arterial Blood Base Excess -3.8 Aj Test Positive Evan Purcell MD Nov 01, 2017 09:04
--- NOTE | 2017-11-01 09:41 | Diagnostic Imaging Report ---
APPROVED REPORT CPT Code: 38763 Present Symptoms Shortness of breath BILATERAL: Imaging reveals a patent deep venous system bilaterally. There is no evidence of thrombus within the femoral, popliteal or tibial segments. The greater saphenous veins are also within normal limits. Doppler indicates normal spontaneous flow within these segments.
--- NOTE | 2017-11-01 09:42 | Diagnostic Imaging Report ---
APPROVED REPORT CPT Code: 07318 Vascular Symptoms Comments: ALTERED LOC Doppler Spectral Velocity Analysis RightLeft RIGHT SIDE: CCA - Imaging reveals no significant plaque in the common carotid artery. ICA The Doppler signal indicates the degree of stenosis is minimal (10-20%) in the internal carotid artery, (10%) in the external carotid artery. VERTEBRAL - The vertebral artery is patent, without evidence of stenosis or steal. LEFT SIDE: CCA - Imaging reveals no significant plaque in the common carotid artery. ICA The Doppler signal indicates the degree of stenosis is mild (30%) in the internal carotid artery, and (10%) in the external carotid artery. VERTEBRAL - The vertebral artery is patent, without evidence of stenosis or steal.
[2017-11-01] MEDS: Heparin 5000 units/ml inj SUBQ SCH ×2 (10:05→20:53)
--- NOTE | 2017-11-01 10:28 | Diagnostic Imaging Report ---
Indication: Dyspnea Comparison: 10/31/2017 A single view chest radiograph was obtained. Findings: Endotracheal tube and right chest port in good position. There is a thoracic vent noted on the right. No pneumothorax currently seen. Lungs appear clear. IMPRESSION: No pneumothorax appreciated. Thoracic vent noted on the right. No change otherwise
--- NOTE | 2017-11-01 12:23 | General Progress Note ---
Progress Note Progress Note Surgery: CXR without ptx today. line functional Cont with thoravent to suction for today will plan to place to water seal tomorrow. thank you Ho Man Nov 01, 2017 12:23
[2017-11-01] MEDS: cefTRIAXone 1 GM in D5W 55 ML IVPB SCH (14:00)
--- NOTE | 2017-11-01 14:49 | Cardiology Report ---
APPROVED REPORT EKG Measurement Heart [id number] CT 126P80 [id number] Sinus tachycardia Biatrial enlargement Nonspecific ST and T wave abnormality Abnormal ECG
--- NOTE | 2017-11-01 15:06 | General Progress Note ---
Assessment/Plan Problem List: (1) Respiratory failure ICD Codes: J96.90 - Respiratory failure, unspecified, unspecified whether with hypoxia or hypercapnia SNOMED: 921199898 (2) Malnutrition ICD Codes: E46 - Unspecified protein-calorie malnutrition SNOMED: 73948401 (3) Renal insufficiency ICD Codes: N28.9 - Disorder of kidney and ureter, unspecified SNOMED: 369839661, 466389887 (4) UTI (urinary tract infection) ICD Codes: N39.0 - Urinary tract infection, site not specified SNOMED: 79164360 (5) Seizure ICD Codes: R56.9 - Unspecified convulsions SNOMED: 67012722 (6) HTN (hypertension) ICD Codes: I10 - Essential (primary) hypertension SNOMED: 92786901 (7) Diabetes ICD Codes: E11.9 - Type 2 diabetes mellitus without complications SNOMED: 47840695 Status: unchanged Assessment/Plan vent abx detox neph f/u cbc bmp am Subjective Constitutional: Reports: weakness Allergies: Coded Allergies: ASPIRIN (Verified Allergy, Unknown, 10/30/17) PENICILLINS (Verified Allergy, Unknown, 10/30/17) UNABLE TO ASSESS (Unverified , 10/29/17) All Systems: reviewed and negative except above Subjective intubated sedated in icu Objective Last 24 Hour Vital Signs Date Time Temp Pulse Resp B/P (MAP) Pulse Ox O2 Delivery O2 Flow Rate FiO2 11/01/17 15:00 102 16 140/69 (92) 100 11/01/17 14:00 113 16 134/81 (98) 100 11/01/17 14:00 14 Mechanical Ventilator 11/01/17 13:00 114 16 160/79 (106) 100 11/01/17 12:49 181/86 11/01/17 12:49 14 Mechanical Ventilator 11/01/17 12:30 105 14 30 11/01/17 12:00 112 11/01/17 12:00 Mechanical Ventilator 11/01/17 12:00 14 Mechanical Ventilator 11/01/17 12:00 30 11/01/17 12:00 98.6 112 14 144/88 (106) 100 98.6 11/01/17 11:00 111 16 157/86 (109) 100 11/01/17 11:00 14 Mechanical Ventilator 11/01/17 10:50 108 14 30 11/01/17 10:04 14 Mechanical Ventilator 11/01/17 10:00 113 14 155/82 (106) 100 11/01/17 09:00 115 14 152/85 (107) 100 11/01/17 09:00 14 Mechanical Ventilator 11/01/17 08:40 111 14 30 11/01/17 08:00 99.1 112 14 149/88 (108) 100 99.1 11/01/17 08:00 109 11/01/17 08:00 Mechanical Ventilator 11/01/17 08:00 14 Mechanical Ventilator 11/01/17 08:00 30 11/01/17 07:11 124 23 30 11/01/17 07:00 115 14 154/88 (110) 100 11/01/17 07:00 14 Mechanical Ventilator 30 11/01/17 06:30 113 14 158/85 (109) 100 11/01/17 06:00 114 14 150/83 (105) 100 11/01/17 06:00 14 Mechanical Ventilator 30 11/01/17 05:30 105 14 145/83 (103) 100 11/01/17 05:00 105 14 140/83 (102) 100 11/01/17 05:00 14 Mechanical Ventilator 30 11/01/17 04:55 99 19 30 11/01/17 04:30 108 14 143/83 (103) 100 11/01/17 04:00 104 11/01/17 04:00 30 11/01/17 04:00 98.8 104 14 144/86 (105) 100 98.8 11/01/17 04:00 Mechanical Ventilator 11/01/17 04:00 14 Mechanical Ventilator 30 11/01/17 03:30 101 14 143/84 (103) 100 11/01/17 03:00 14 Mechanical Ventilator 30 11/01/17 03:00 98 14 145/83 (103) 100 11/01/17 02:54 99 16 30 11/01/17 02:30 100 14 130/82 (98) 100 11/01/17 02:00 100 14 136/80 (98) 99 11/01/17 02:00 14 Mechanical Ventilator 30 11/01/17 01:30 101 14 127/69 (88) 99 11/01/17 01:00 14 Mechanical Ventilator 30 11/01/17 01:00 104 14 121/70 (87) 99 11/01/17 00:46 105 16 30 11/01/17 00:45 102 121/70 11/01/17 00:00 99.9 102 14 125/81 (96) 100 99.9 11/01/17 00:00 Mechanical Ventilator 11/01/17 00:00 15 Mechanical Ventilator 30 10/31/17 23:00 110 15 120/81 (94) 100 10/31/17 23:00 15 Mechanical Ventilator 30 10/31/17 22:52 109 16 30 10/31/17 22:30 118 15 125/81 (96) 100 10/31/17 22:17 14 Mechanical Ventilator 30 10/31/17 22:00 118 15 137/39 (71) 100 10/31/17 21:54 99.8 10/31/17 21:30 120 14 142/88 (106) 100 10/31/17 21:24 101.4 10/31/17 21:00 122 14 138/88 (105) 100 10/31/17 20:56 126 16 30 10/31/17 20:30 120 14 144/88 (106) 100 10/31/17 20:00 99.8 120 14 140/83 (102) 100 99.8 10/31/17 20:00 14 Mechanical Ventilator 30 10/31/17 20:00 120 10/31/17 20:00 Mechanical Ventilator 10/31/17 20:00 30 10/31/17 19:00 119 14 145/81 (102) 100 10/31/17 18:53 120 14 30 10/31/17 18:30 123 16 166/90 (115) 100 10/31/17 18:00 119 16 158/84 (108) 100 10/31/17 18:00 14 Mechanical Ventilator 30 10/31/17 17:30 117 14 141/89 (106) 100 10/31/17 17:00 123 14 30 10/31/17 17:00 128 14 154/89 (110) 100 10/31/17 17:00 14 Mechanical Ventilator 30 10/31/17 16:30 124 14 153/84 (107) 99 10/31/17 16:00 30 10/31/17 16:00 Mechanical Ventilator 10/31/17 16:00 14 Mechanical Ventilator 30 10/31/17 16:00 99.0 116 14 154/88 (110) 100 99.0 10/31/17 16:00 117 10/31/17 15:31 117 14 149/85 (106) 100 Intake and Output 10/31/17 11/01/17 19:00 07:00 Intake Total 1453 ml 1359 ml Output Total 400 ml 1100 ml Balance 1053 ml 259 ml IV Total 1453 ml 1359 ml Output Urine Total 400 ml 1100 ml # Bowel Movements 4 Laboratory Tests 11/01/17 05:45: White Blood Count 16.0H, Red Blood Count 4.01L, Hemoglobin 11.8L, Hematocrit 37.0, Mean Corpuscular Volume 92, Mean Corpuscular Hemoglobin 29.4, Mean Corpuscular Hemoglobin Concent 31.9L, Red Cell Distribution Width 12.0, Platelet Count 287, Mean Platelet Volume 6.6, Neutrophils (%) (Auto) 82.0H, Lymphocytes (%) (Auto) 11.4L, Monocytes (%) (Auto) 6.1, Eosinophils (%) (Auto) 0.0, Basophils (%) (Auto) 0.5, Sodium Level 140, Potassium Level 3.5, Chloride Level 109H, Carbon Dioxide Level 23, Anion Gap 9, Blood Urea Nitrogen 9, Creatinine 1.1, Estimat Glomerular Filtration Rate > 60, Glucose Level 127H, Calcium Level 9.0, Magnesium Level 1.6L, Total Bilirubin 0.2, Aspartate Amino Transf (AST/SGOT) 105H, Alanine Aminotransferase (ALT/SGPT) 115H, Alkaline Phosphatase 104, Total Protein 7.2, Albumin 2.7L, Globulin 4.5 11/01/17 08:50: Arterial Blood pH 7.452H, Arterial Blood Partial Pressure CO2 27.8L, Arterial Blood Partial Pressure O2 128.3H, Arterial Blood HCO3 19.0L, Arterial Blood Oxygen Saturation 97.8, Arterial Blood Base Excess -3.8, Aj Test Positive Height (Feet): 5 Height (Inches): 2.00 Weight (Pounds): 105 General Appearance: lethargic EENT: normal ENT inspection Neck: normal alignment Cardiovascular: normal peripheral pulses, normal rate, regular rhythm Respiratory/Chest: chest wall non-tender, decreased breath sounds Abdomen: normal bowel sounds, non tender, soft Extremities: normal inspection Edema: no edema noted Arm (L), no edema noted Arm (R), no edema noted Leg (L), no edema noted Leg (R), no edema noted Pedal (L), no edema noted Pedal (R), no edema noted Generalized Neurologic: motor weakness Skin: normal pigmentation, warm/dry Josias Skinner DO Nov 01, 2017 15:06
--- NOTE | 2017-11-01 15:58 | GI Progress Note ---
Assessment/Plan Problems: (1) Malnutrition ICD Codes: E46 - Unspecified protein-calorie malnutrition SNOMED: 48924810 (2) Diabetes ICD Codes: E11.9 - Type 2 diabetes mellitus without complications SNOMED: 96789811 (3) Encephalopathy ICD Codes: G93.40 - Encephalopathy, unspecified SNOMED: 91859158 (4) Aspiration into airway ICD Codes: T17.908A - Unspecified foreign body in respiratory tract, part unspecified causing other injury, initial encounter SNOMED: 014239652, 000638304 (5) Cocaine abuse ICD Codes: F14.10 - Cocaine abuse, uncomplicated SNOMED: 61367387 Status: unchanged Status Narrative Discussed with Dr. Sauceda. Assessment/Plan shocked liver supportive care NGTFs per RD on dilantin, can affect liver function trend LFTs ppi fu labs The patient was seen and examined at bedside and all new and available data was reviewed in the patients chart. I agree with the above findings, impression and plan. (Patient seen earlier today. Signature stamp does not reflect patient encounter time.). - Renaldo Sauceda MD Subjective Subjective limited Objective Last 24 Hour Vital Signs Date Time Temp Pulse Resp B/P (MAP) Pulse Ox O2 Delivery O2 Flow Rate FiO2 11/01/17 15:00 102 16 140/69 (92) 100 11/01/17 15:00 106 14 30 11/01/17 14:00 113 16 134/81 (98) 100 11/01/17 14:00 14 Mechanical Ventilator 11/01/17 13:00 114 16 160/79 (106) 100 11/01/17 12:49 181/86 11/01/17 12:49 14 Mechanical Ventilator 11/01/17 12:30 105 14 30 11/01/17 12:00 112 11/01/17 12:00 Mechanical Ventilator 11/01/17 12:00 14 Mechanical Ventilator 11/01/17 12:00 30 11/01/17 12:00 98.6 112 14 144/88 (106) 100 98.6 11/01/17 11:00 111 16 157/86 (109) 100 11/01/17 11:00 14 Mechanical Ventilator 11/01/17 10:50 108 14 30 11/01/17 10:04 14 Mechanical Ventilator 11/01/17 10:00 113 14 155/82 (106) 100 11/01/17 09:00 115 14 152/85 (107) 100 11/01/17 09:00 14 Mechanical Ventilator 11/01/17 08:40 111 14 30 11/01/17 08:00 99.1 112 14 149/88 (108) 100 99.1 11/01/17 08:00 109 11/01/17 08:00 Mechanical Ventilator 11/01/17 08:00 14 Mechanical Ventilator 11/01/17 08:00 30 11/01/17 07:11 124 23 30 11/01/17 07:00 115 14 154/88 (110) 100 11/01/17 07:00 14 Mechanical Ventilator 30 11/01/17 06:30 113 14 158/85 (109) 100 11/01/17 06:00 114 14 150/83 (105) 100 11/01/17 06:00 14 Mechanical Ventilator 30 11/01/17 05:30 105 14 145/83 (103) 100 11/01/17 05:00 105 14 140/83 (102) 100 11/01/17 05:00 14 Mechanical Ventilator 30 11/01/17 04:55 99 19 30 11/01/17 04:30 108 14 143/83 (103) 100 11/01/17 04:00 104 11/01/17 04:00 30 11/01/17 04:00 98.8 104 14 144/86 (105) 100 98.8 11/01/17 04:00 Mechanical Ventilator 11/01/17 04:00 14 Mechanical Ventilator 30 11/01/17 03:30 101 14 143/84 (103) 100 11/01/17 03:00 14 Mechanical Ventilator 30 11/01/17 03:00 98 14 145/83 (103) 100 11/01/17 02:54 99 16 30 11/01/17 02:30 100 14 130/82 (98) 100 11/01/17 02:00 100 14 136/80 (98) 99 11/01/17 02:00 14 Mechanical Ventilator 30 11/01/17 01:30 101 14 127/69 (88) 99 11/01/17 01:00 14 Mechanical Ventilator 30 11/01/17 01:00 104 14 121/70 (87) 99 11/01/17 00:46 105 16 30 11/01/17 00:45 102 121/70 11/01/17 00:00 99.9 102 14 125/81 (96) 100 99.9 11/01/17 00:00 Mechanical Ventilator 11/01/17 00:00 15 Mechanical Ventilator 30 10/31/17 23:00 110 15 120/81 (94) 100 10/31/17 23:00 15 Mechanical Ventilator 30 10/31/17 22:52 109 16 30 10/31/17 22:30 118 15 125/81 (96) 100 10/31/17 22:17 14 Mechanical Ventilator 30 10/31/17 22:00 118 15 137/39 (71) 100 10/31/17 21:54 99.8 10/31/17 21:30 120 14 142/88 (106) 100 10/31/17 21:24 101.4 10/31/17 21:00 122 14 138/88 (105) 100 10/31/17 20:56 126 16 30 10/31/17 20:30 120 14 144/88 (106) 100 10/31/17 20:00 99.8 120 14 140/83 (102) 100 99.8 10/31/17 20:00 14 Mechanical Ventilator 30 10/31/17 20:00 120 10/31/17 20:00 Mechanical Ventilator 10/31/17 20:00 30 10/31/17 19:00 119 14 145/81 (102) 100 10/31/17 18:53 120 14 30 10/31/17 18:30 123 16 166/90 (115) 100 10/31/17 18:00 119 16 158/84 (108) 100 10/31/17 18:00 14 Mechanical Ventilator 30 10/31/17 17:30 117 14 141/89 (106) 100 10/31/17 17:00 123 14 30 10/31/17 17:00 128 14 154/89 (110) 100 10/31/17 17:00 14 Mechanical Ventilator 30 10/31/17 16:30 124 14 153/84 (107) 99 10/31/17 16:00 30 10/31/17 16:00 Mechanical Ventilator 10/31/17 16:00 14 Mechanical Ventilator 30 10/31/17 16:00 99.0 116 14 154/88 (110) 100 99.0 10/31/17 16:00 117 Intake and Output 10/31/17 11/01/17 19:00 07:00 Intake Total 1453 ml 1359 ml Output Total 400 ml 1100 ml Balance 1053 ml 259 ml IV Total 1453 ml 1359 ml Output Urine Total 400 ml 1100 ml # Bowel Movements 4 Laboratory Tests Test 11/01/17 05:45 11/01/17 08:50 White Blood Count 16.0 K/UL (4.8-10.8) H Red Blood Count 4.01 M/UL (4.20-5.40) L Hemoglobin 11.8 G/DL (12.0-16.0) L Hematocrit 37.0 % (37.0-47.0) Mean Corpuscular Volume 92 FL (80-99) Mean Corpuscular Hemoglobin 29.4 PG (27.0-31.0) Mean Corpuscular Hemoglobin Concent 31.9 G/DL (32.0-36.0) L Red Cell Distribution Width 12.0 % (11.6-14.8) Platelet Count 287 K/UL (150-450) Mean Platelet Volume 6.6 FL (6.5-10.1) Neutrophils (%) (Auto) 82.0 % (45.0-75.0) H Lymphocytes (%) (Auto) 11.4 % (20.0-45.0) L Monocytes (%) (Auto) 6.1 % (1.0-10.0) Eosinophils (%) (Auto) 0.0 % (0.0-3.0) Basophils (%) (Auto) 0.5 % (0.0-2.0) Sodium Level 140 MMOL/L (136-145) Potassium Level 3.5 MMOL/L (3.5-5.1) Chloride Level 109 MMOL/L (98-107) H Carbon Dioxide Level 23 MMOL/L (21-32) Anion Gap 9 mmol/L (5-15) Blood Urea Nitrogen 9 mg/dL (7-18) Creatinine 1.1 MG/DL (0.55-1.30) Estimat Glomerular Filtration Rate > 60 mL/min (>60) Glucose Level 127 MG/DL (74-106) H Calcium Level 9.0 MG/DL (8.5-10.1) Magnesium Level 1.6 MG/DL (1.8-2.4) L Total Bilirubin 0.2 MG/DL (0.2-1.0) Aspartate Amino Transf (AST/SGOT) 105 U/L (15-37) H Alanine Aminotransferase (ALT/SGPT) 115 U/L (12-78) H Alkaline Phosphatase 104 U/L (46-116) Total Protein 7.2 G/DL (6.4-8.2) Albumin 2.7 G/DL (3.4-5.0) L Globulin 4.5 g/dL Arterial Blood pH 7.452 (7.350-7.450) Arterial Blood Partial Pressure CO2 27.8 mmHg (35.0-45.0) L Arterial Blood Partial Pressure O2 128.3 mmHg (75.0-100.0) H Arterial Blood HCO3 19.0 mmol/L (22.0-26.0) L Arterial Blood Oxygen Saturation 97.8 % (92.0-98.0) Arterial Blood Base Excess -3.8 Aj Test Positive Microbiology Date/Time Source Procedure Growth Status 10/31/17 16:10 Indwelling Cath Urine Culture - Preliminary NO GROWTH Resulted Height (Feet): 5 Height (Inches): 2.00 Weight (Pounds): 105 General Appearance: lethargic Cardiovascular: normal rate Respiratory/Chest: no respiratory distress Abdominal Exam: no mass, other - NGT Risa Davenport NP Nov 01, 2017 15:58
--- NOTE | 2017-11-01 20:00 | Electroencephalogram ---
DATE OF PROCEDURE: 10/31/2017 REQUESTING PHYSICIAN: Josias Skinner D.O. READING PHYSICIAN: Gunner Lester M.D. HISTORY: This EEG was performed on a 57-year-old lady with a history of polysubstance abuse with a latest drug of choice being cocaine and a seizure disorder. The patient was found in full cardiac arrest and then was noted to have a flurry of seizures. The seizures have been controlled on a combination of Dilantin, Keppra, and Versed. The purpose of this EEG was to evaluate the patient for ongoing ictal or interictal phenomena. TECHNIQUE: This EEG was performed on a [employer] with electrodes placed on the scalp according to the International 10-20 system. [id number] and [id number] montages were used. The EEG was technically satisfactory and was performed while the patient was in a comatose state. OBSERVATIONS: In the comatose state, the background activity consisted of 4-5 Hz theta with intermixed delta frequencies. Throughout the tracing, sharp and slow-wave discharges phase reversing at F3 and F4 were seen. Sometimes these discharges were noted over a large field. No definite electrographic or clinical seizures were noted. IMPRESSION: This is an abnormal EEG characterized by: 1. Slowing of the background in the 4-5 Hz theta with intermixed delta range. 2. The presence of F3 and F4 sharp and slow-wave discharges, spreading sometimes over a large field. COMMENT: This study is consistent with an encephalopathy of a severe degree and in addition, bilateral frontal epileptogenic foci with interictal discharges seen on this EEG. Gunner Lester M.D., M.S.P.H. DR: JOHN PAUL JOB#: [id number] MTDD
--- NOTE | 2017-11-01 20:03 | Neurology Progress Note ---
Interim History Interim History Interim History Ms. Robertson is still sedated with Versed. She has had no seizures or seizure like phenomena. She continues to be artificially ventilated. When her Versed is decreased she bucks the ventilator. Review of Systems Neuro Review of Systems Unable to obtain. Objective Physical Exam Last Vital Signs Date Time Temp Pulse Resp B/P (MAP) Pulse Ox O2 Delivery O2 Flow Rate FiO2 11/01/17 19:00 105 16 157/75 (102) 100 11/01/17 16:50 30 11/01/17 16:00 98.6 98.6 11/01/17 16:00 Mechanical Ventilator Laboratory Tests Test 11/01/17 05:45 11/01/17 08:50 White Blood Count 16.0 K/UL (4.8-10.8) H Red Blood Count 4.01 M/UL (4.20-5.40) L Hemoglobin 11.8 G/DL (12.0-16.0) L Hematocrit 37.0 % (37.0-47.0) Mean Corpuscular Volume 92 FL (80-99) Mean Corpuscular Hemoglobin 29.4 PG (27.0-31.0) Mean Corpuscular Hemoglobin Concent 31.9 G/DL (32.0-36.0) L Red Cell Distribution Width 12.0 % (11.6-14.8) Platelet Count 287 K/UL (150-450) Mean Platelet Volume 6.6 FL (6.5-10.1) Neutrophils (%) (Auto) 82.0 % (45.0-75.0) H Lymphocytes (%) (Auto) 11.4 % (20.0-45.0) L Monocytes (%) (Auto) 6.1 % (1.0-10.0) Eosinophils (%) (Auto) 0.0 % (0.0-3.0) Basophils (%) (Auto) 0.5 % (0.0-2.0) Sodium Level 140 MMOL/L (136-145) Potassium Level 3.5 MMOL/L (3.5-5.1) Chloride Level 109 MMOL/L (98-107) H Carbon Dioxide Level 23 MMOL/L (21-32) Anion Gap 9 mmol/L (5-15) Blood Urea Nitrogen 9 mg/dL (7-18) Creatinine 1.1 MG/DL (0.55-1.30) Estimat Glomerular Filtration Rate > 60 mL/min (>60) Glucose Level 127 MG/DL (74-106) H Calcium Level 9.0 MG/DL (8.5-10.1) Magnesium Level 1.6 MG/DL (1.8-2.4) L Total Bilirubin 0.2 MG/DL (0.2-1.0) Aspartate Amino Transf (AST/SGOT) 105 U/L (15-37) H Alanine Aminotransferase (ALT/SGPT) 115 U/L (12-78) H Alkaline Phosphatase 104 U/L (46-116) Total Protein 7.2 G/DL (6.4-8.2) Albumin 2.7 G/DL (3.4-5.0) L Globulin 4.5 g/dL Arterial Blood pH 7.452 (7.350-7.450) Arterial Blood Partial Pressure CO2 27.8 mmHg (35.0-45.0) L Arterial Blood Partial Pressure O2 128.3 mmHg (75.0-100.0) H Arterial Blood HCO3 19.0 mmol/L (22.0-26.0) L Arterial Blood Oxygen Saturation 97.8 % (92.0-98.0) Arterial Blood Base Excess -3.8 Aj Test Positive Neurologic Exam Objective PHYSICAL EXAMINATION: GENERAL: She is a well-developed, cachectic, lean, black lady, lying in an ICU bed, in no acute distress, connected to a ventilator via an orotracheal tube. HEAD: Normocephalic and atraumatic. EENT: Examination benign. NECK: No neck rigidity was observed. NEUROLOGIC EXAMINATION: MENTAL STATUS EXAMINATION: She was comatose and only responded to deep painful stimuli with decerebration. Further mental status testing was impossible. SPEECH: Could not be tested. LANGUAGE: Could not be tested. CRANIAL NERVE EXAMINATION: II: She did not blink to threat. III, IV & : The external ocular movements were present on oculocephalic maneuvers. The pupils were 3 mm in diameter and reactive sluggishly to light. V & VII: The corneal reflexes were present, but significantly diminished. VIII: She did not respond to sounds and had no nystagmus. IX & X: The gag reflex was absent on manipulating the endotracheal tube. XI: The sternocleidomastoids and trapezii could not be tested. XII: Could not be tested. MOTOR SYSTEM: The tone was normal in all four extremities. Examination of muscle mass revealed generalized muscle wasting. Examination of power was impossible to perform because even on applying deep painful stimuli, no movements were seen. SENSORY EXAMINATION: She responded to deep pain with eye opening, but no other responses. REFLEXES: 1+ and bilaterally symmetrical at the biceps, triceps, brachioradialis , and knees. 0 at both ankles. The plantar responses were extensor bilaterally. COORDINATION, STANCE & GAIT: Could not be tested. Impression/Recommendations Diagnostic Impression 1. Ms. Polly Robertson is a 57-year-old, right-handed, black lady, who does have a past history of polysubstance abuse with her recent drug of choice being cocaine, a seizure disorder, and chronic pain, who was found down in her bathroom at home with vomitus in her mouth. She then was noted to stop breathing and this progressed to cardiac failure. The paramedics were called in and she had to have advanced cardiac life support before she could be resuscitated. She was then transported to the [facility] emergency room and on the way here she was noted to have a generalized seizure. Since then, she has had multiple seizures, however, at this point in time, they are well controlled on the present regimen. 2. She is still sedated with Versed. She has had no seizures or seizure like phenomena. She continues to be artificially ventilated. When her Versed is decreased she bucks the ventilator. 3. On neurological examination, at this time, she is comatose and only responds to deep pain with decerebration. She however does not demonstrate any focal or lateralizing findings. 4. The CT scan of the brain without contrast is benign for acute pathology. 5. Her latest laboratory data on my initial evaluation revealed that her WBC count was elevated to 17,600 with predominantly 79% being neutrophils and 15% being lymphocytes and monocytes. Her arterial blood gas revealed pCO2 low at 21.2, pO2 at 154, and pH of 7.49. Her chemistry panel revealed a creatinine elevated to 1.7. Her AST was elevated at 255, ALT elevated at 251, and alkaline phosphatase elevated at 142. Her albumin was low at 2.9. Her Urinalysis revealed 1+ leukocyte esterase, 20- 30 red blood cells, and 5-10 white blood cells per high-power field. The urine toxicology screen was positive for cocaine. 6. Her EEG done on 10/31/17 revealed a severe encephalopathy and bilateral frontal epileptogenic foci with inter-ictal discharges at time with a large field. 7. The patient's history, neurological examination, laboratory data and imaging studies are most compatible with seizures due to a hypoxic/ischemic cerebral insult and/or cocaine intoxication. Recommendations 1. Continue present management. 2. Continue to treat the patient's infectious process vigorously. 3. Continue Dilantin 100 mg intravenously q.8 h. 4. Continue Keppra 1 G intravenously every 8 hours. 5. Wean off Versed. 6. The patient should be observed in the ICU until her condition improves. Denisse Lester M.D., M.S.P.DENISSE ERAZO Nov 01, 2017 20:03
[2017-11-01] MEDS: Dyna-Hex 2% Top Sol 2oz TOPIC SCH (20:06)
[2017-11-01] MEDS: Morphine Sulfate 4mg/ml Inj (IV USE ONLY) IVP PRN (20:09)
[2017-11-01] MEDS: Midazolam/D5W 100ml 100 ML IVPB SCH (21:14)
[2017-11-02] VITALS (30 sets, daily range): BP systolic 103–177; BP diastolic 69–119
--- NOTE | 2017-11-02 | Cardiology Progress Note ---
Assessment/Plan Assessment/Plan 1. Sinus tachycardia, ? due to cocaine intoxication or small pneumothorax. Echo reveals normal left ventricular systolic function with LVEF of approximately 55% . Start low dose of diltiazem. 2. Acute hypoxemia respiratory failure, emergence of small right pneumothorax. 3. Mild pulmonary hypertension with right ventricular systolic pressure measured at 42 mmHg. 4. Seizure disorder 5. Polysubstance abuse. Subjective Subjective Sinus tachycardia at 114. Intubated. Objective Last 24 Hour Vital Signs Date Time Temp Pulse Resp B/P (MAP) Pulse Ox O2 Delivery O2 Flow Rate FiO2 11/01/17 23:00 109 14 30 11/01/17 22:00 108 16 152/73 (99) 100 11/01/17 21:14 14 Mechanical Ventilator 30 11/01/17 21:00 114 16 133/75 (94) 100 11/01/17 20:55 113 14 30 11/01/17 20:30 122 16 142/86 (104) 100 11/01/17 20:00 114 11/01/17 20:00 99.0 122 18 150/88 (108) 100 99.0 11/01/17 20:00 30 11/01/17 20:00 Mechanical Ventilator 11/01/17 19:00 105 16 157/75 (102) 100 11/01/17 18:45 120 22 30 11/01/17 18:00 105 16 150/72 (98) 100 11/01/17 17:00 108 16 144/70 (94) 100 11/01/17 16:50 120 19 30 11/01/17 16:00 98.6 112 14 136/88 (104) 100 98.6 11/01/17 16:00 Mechanical Ventilator 11/01/17 16:00 113 11/01/17 16:00 30 11/01/17 15:00 102 16 140/69 (92) 100 11/01/17 15:00 106 14 30 11/01/17 14:00 113 16 134/81 (98) 100 11/01/17 14:00 14 Mechanical Ventilator 11/01/17 13:00 114 16 160/79 (106) 100 11/01/17 12:49 181/86 11/01/17 12:49 14 Mechanical Ventilator 11/01/17 12:30 105 14 30 11/01/17 12:00 112 11/01/17 12:00 Mechanical Ventilator 11/01/17 12:00 14 Mechanical Ventilator 11/01/17 12:00 30 11/01/17 12:00 98.6 112 14 144/88 (106) 100 98.6 11/01/17 11:00 111 16 157/86 (109) 100 11/01/17 11:00 14 Mechanical Ventilator 11/01/17 10:50 108 14 30 11/01/17 10:04 14 Mechanical Ventilator 11/01/17 10:00 113 14 155/82 (106) 100 11/01/17 09:00 115 14 152/85 (107) 100 11/01/17 09:00 14 Mechanical Ventilator 11/01/17 08:40 111 14 30 11/01/17 08:00 99.1 112 14 149/88 (108) 100 99.1 11/01/17 08:00 109 11/01/17 08:00 Mechanical Ventilator 11/01/17 08:00 14 Mechanical Ventilator 11/01/17 08:00 30 11/01/17 07:11 124 23 30 11/01/17 07:00 115 14 154/88 (110) 100 11/01/17 07:00 14 Mechanical Ventilator 30 11/01/17 06:30 113 14 158/85 (109) 100 11/01/17 06:00 114 14 150/83 (105) 100 11/01/17 06:00 14 Mechanical Ventilator 30 11/01/17 05:30 105 14 145/83 (103) 100 11/01/17 05:00 105 14 140/83 (102) 100 11/01/17 05:00 14 Mechanical Ventilator 30 11/01/17 04:55 99 19 30 11/01/17 04:30 108 14 143/83 (103) 100 11/01/17 04:00 104 11/01/17 04:00 30 11/01/17 04:00 98.8 104 14 144/86 (105) 100 98.8 11/01/17 04:00 Mechanical Ventilator 11/01/17 04:00 14 Mechanical Ventilator 30 11/01/17 03:30 101 14 143/84 (103) 100 11/01/17 03:00 14 Mechanical Ventilator 30 11/01/17 03:00 98 14 145/83 (103) 100 11/01/17 02:54 99 16 30 11/01/17 02:30 100 14 130/82 (98) 100 11/01/17 02:00 100 14 136/80 (98) 99 11/01/17 02:00 14 Mechanical Ventilator 30 11/01/17 01:30 101 14 127/69 (88) 99 11/01/17 01:00 14 Mechanical Ventilator 30 11/01/17 01:00 104 14 121/70 (87) 99 11/01/17 00:46 105 16 30 11/01/17 00:45 102 121/70 11/01/17 00:00 99.9 102 14 125/81 (96) 100 99.9 11/01/17 00:00 Mechanical Ventilator 11/01/17 00:00 15 Mechanical Ventilator 30 Pulses: decreased: PT (L) Neurologic: normal mood/affect Intake and Output 10/31/17 11/01/17 19:00 07:00 Intake Total 1453 ml 1359 ml Output Total 400 ml 1100 ml Balance 1053 ml 259 ml IV Total 1453 ml 1359 ml Output Urine Total 400 ml 1100 ml # Bowel Movements 4 CXR: reviewed 2D Echo: EF 60-65%, mild LVH, Mild AR, normal LVDD, RVSP 42 mmHg Laboratory Tests Test 11/01/17 05:45 11/01/17 08:50 White Blood Count 16.0 K/UL (4.8-10.8) H Red Blood Count 4.01 M/UL (4.20-5.40) L Hemoglobin 11.8 G/DL (12.0-16.0) L Hematocrit 37.0 % (37.0-47.0) Mean Corpuscular Volume 92 FL (80-99) Mean Corpuscular Hemoglobin 29.4 PG (27.0-31.0) Mean Corpuscular Hemoglobin Concent 31.9 G/DL (32.0-36.0) L Red Cell Distribution Width 12.0 % (11.6-14.8) Platelet Count 287 K/UL (150-450) Mean Platelet Volume 6.6 FL (6.5-10.1) Neutrophils (%) (Auto) 82.0 % (45.0-75.0) H Lymphocytes (%) (Auto) 11.4 % (20.0-45.0) L Monocytes (%) (Auto) 6.1 % (1.0-10.0) Eosinophils (%) (Auto) 0.0 % (0.0-3.0) Basophils (%) (Auto) 0.5 % (0.0-2.0) Sodium Level 140 MMOL/L (136-145) Potassium Level 3.5 MMOL/L (3.5-5.1) Chloride Level 109 MMOL/L (98-107) H Carbon Dioxide Level 23 MMOL/L (21-32) Anion Gap 9 mmol/L (5-15) Blood Urea Nitrogen 9 mg/dL (7-18) Creatinine 1.1 MG/DL (0.55-1.30) Estimat Glomerular Filtration Rate > 60 mL/min (>60) Glucose Level 127 MG/DL (74-106) H Calcium Level 9.0 MG/DL (8.5-10.1) Magnesium Level 1.6 MG/DL (1.8-2.4) L Total Bilirubin 0.2 MG/DL (0.2-1.0) Aspartate Amino Transf (AST/SGOT) 105 U/L (15-37) H Alanine Aminotransferase (ALT/SGPT) 115 U/L (12-78) H Alkaline Phosphatase 104 U/L (46-116) Total Protein 7.2 G/DL (6.4-8.2) Albumin 2.7 G/DL (3.4-5.0) L Globulin 4.5 g/dL Arterial Blood pH 7.452 (7.350-7.450) Arterial Blood Partial Pressure CO2 27.8 mmHg (35.0-45.0) L Arterial Blood Partial Pressure O2 128.3 mmHg (75.0-100.0) H Arterial Blood HCO3 19.0 mmol/L (22.0-26.0) L Arterial Blood Oxygen Saturation 97.8 % (92.0-98.0) Arterial Blood Base Excess -3.8 Aj Test Positive Microbiology Date/Time Source Procedure Growth Status 10/30/17 11:01 Sputum Induced Gram Stain - Final Resulted 10/30/17 11:01 Sputum Culture - Preliminary Gram Negative Bacillus 1 Usual Respiratory Maria Elena Resulted 10/30/17 07:15 Nasal Nares MRSA Culture - Final NO METHICILLIN RESISTANT STAPH AUREUS... Complete 10/31/17 16:10 Indwelling Cath Urine Culture - Preliminary NO GROWTH Resulted 10/30/17 07:15 Rectum VRE Culture - Final NO VANCOMYCIN RESISTANT ENTEROCOCCUS ... Complete 10/30/17 07:15 Rectum - Final NO CARBAPENEM-RESISTANT ENTEROBACTERI... Complete Objective HEENT: Atraumatic and normocephalic. Anicteric. Pupils are equal, round, and reactive to light and accommodation. NECK: JVP cannot be assessed due to intubation. CARDIOVASCULAR: Normal S1, S2. Tachycardic. No murmurs, gallops, or rubs. LUNGS: Diminished breath sounds in both bases. ABDOMEN: Soft, nontender, and nondistended. Positive bowel sounds. EXTREMITIES: No evidence of edema, clubbing, or cyanosis. Geovany Brown MD Nov 02, 2017 00:00
[2017-11-02] MEDS: Phenytoin 100 MG in NS 55 ML IVPB SCH ×3 (00:06→16:11)
[2017-11-02] MEDS: levETIRAcetam 1,000mg/NS100ml 100 ML IVPB SCH ×3 (00:58→17:00)
[2017-11-02 06:01] LABS: BASOPHILS % (AUTO) 0.2 % (0.0-2.0); EOSINOPHILS % (AUTO) 0.1 % (0.0-3.0); HEMATOCRIT 31.9 % (37.0-47.0); HEMOGLOBIN 10.4 G/DL (12.0-16.0); LYMPHOCYTES % (AUTO) 9.9 % (20.0-45.0); MEAN CORPUSCULAR VOLUME 91 FL (80-99); MONOCYTES % (AUTO) 6.2 % (1.0-10.0); NEUTROPHILS % (AUTO) 83.7 % (45.0-75.0); PLATELET COUNT 272 K/UL (150-450); RED BLOOD COUNT 3.52 M/UL (4.20-5.40); RED CELL DISTRIBUTION WIDTH 11.3 % (11.6-14.8); WHITE BLOOD COUNT 13.3 K/UL (4.8-10.8)
[2017-11-02] MEDS: Hydrocortisone 100mg Inj IV SCH (06:08)
[2017-11-02 06:25] LABS: ALANINE AMINOTRANSFERASE 79 U/L (12-78); ALBUMIN 2.3 G/DL (3.4-5.0); ALBUMIN/GLOBULIN RATIO 0.6 (1.0-2.7); ALKALINE PHOSPHATASE 89 U/L (46-116); ANION GAP 9 mmol/L (5-15); ASPARTATE AMINO TRANSFERASE 69 U/L (15-37); BILIRUBIN,TOTAL 0.2 MG/DL (0.2-1.0); BLOOD UREA NITROGEN 17 mg/dL (7-18); CALCIUM 8.6 MG/DL (8.5-10.1); CARBON DIOXIDE 24 MMOL/L (21-32); CHLORIDE 111 MMOL/L (98-107); CREATININE 0.9 MG/DL (0.55-1.30); POTASSIUM 2.8 MMOL/L (3.5-5.1); SODIUM 144 MMOL/L (136-145)
--- NOTE | 2017-11-02 08:09 | Nephrology Progress Note ---
Assessment/Plan Assessment 1. Acute renal failure. The etiology of acute renal failure including acute tubular necrosis due to unstable hemodynamics. 2. Chronic kidney disease due to hypertensive nephrosclerosis. 3. Aspiration pneumonia. 4. Sepsis. 5. hypokalemia 6. Shock liver. 7. Acute respiratory failure. Plan plan continue ivf check mg change ivf to [id number] replace k monitoring renal function and urine out put avoid NSAID Subjective Constitutional: Reports: no symptoms HEENT: Reports: no symptoms Genitourinary: Reports: no symptoms Neurologic/Psychiatric: Reports: no symptoms Subjective continue to be in icu setting intubated on versed drip good urine out put unresponsive Objective Objective Last 24 Hour Vital Signs Date Time Temp Pulse Resp B/P (MAP) Pulse Ox O2 Delivery O2 Flow Rate FiO2 11/02/17 07:23 98 14 30 11/02/17 07:00 102 14 159/75 (103) 99 11/02/17 07:00 14 Mechanical Ventilator 30 11/02/17 06:00 86 14 157/76 (103) 99 11/02/17 06:00 14 Mechanical Ventilator 30 11/02/17 05:30 85 14 140/81 (100) 99 11/02/17 05:20 100 14 30 11/02/17 05:00 84 14 130/81 (97) 99 11/02/17 05:00 15 Mechanical Ventilator 30 11/02/17 05:00 14 30 11/02/17 04:30 84 14 132/81 (98) 99 11/02/17 04:00 Mechanical Ventilator 11/02/17 04:00 30 11/02/17 04:00 14 Mechanical Ventilator 30 11/02/17 04:00 99.0 98 14 139/79 (99) 99 99.0 11/02/17 04:00 96 11/02/17 03:30 99 14 146/77 (100) 99 11/02/17 03:25 98 14 30 11/02/17 03:00 14 Mechanical Ventilator 30 11/02/17 03:00 99 14 139/81 (100) 99 11/02/17 02:30 84 14 124/76 (92) 99 11/02/17 02:00 14 Mechanical Ventilator 30 11/02/17 02:00 88 14 127/77 (94) 99 11/02/17 01:30 94 14 133/80 (97) 99 11/02/17 01:00 15 Mechanical Ventilator 30 11/02/17 01:00 108 14 140/78 (98) 100 11/02/17 00:55 94 14 30 11/02/17 00:38 166/105 11/02/17 00:30 103 14 148/75 (99) 100 11/02/17 00:06 14 Mechanical Ventilator 30 11/02/17 00:00 110 11/02/17 00:00 99.6 103 14 150/77 (101) 100 99.6 11/02/17 00:00 Mechanical Ventilator 11/02/17 00:00 30 11/01/17 23:30 108 14 161/78 (105) 100 11/01/17 23:00 14 Mechanical Ventilator 30 11/01/17 23:00 108 16 152/73 (99) 100 11/01/17 23:00 109 14 30 11/01/17 22:30 107 16 130/76 (94) 100 11/01/17 22:00 108 16 152/73 (99) 100 11/01/17 22:00 16 Mechanical Ventilator 30 11/01/17 21:30 112 16 136/78 (97) 100 11/01/17 21:14 14 Mechanical Ventilator 30 11/01/17 21:00 114 16 133/75 (94) 100 11/01/17 20:55 113 14 30 11/01/17 20:30 122 16 142/86 (104) 100 11/01/17 20:00 114 11/01/17 20:00 99.0 122 18 150/88 (108) 100 99.0 11/01/17 20:00 30 11/01/17 20:00 14 Mechanical Ventilator 30 11/01/17 20:00 Mechanical Ventilator 11/01/17 19:00 105 16 157/75 (102) 100 11/01/17 18:45 120 22 30 11/01/17 18:00 105 16 150/72 (98) 100 11/01/17 17:00 108 16 144/70 (94) 100 11/01/17 16:50 120 19 30 11/01/17 16:00 98.6 112 14 136/88 (104) 100 98.6 11/01/17 16:00 Mechanical Ventilator 11/01/17 16:00 113 11/01/17 16:00 30 11/01/17 15:00 102 16 140/69 (92) 100 11/01/17 15:00 106 14 30 11/01/17 14:00 113 16 134/81 (98) 100 11/01/17 14:00 14 Mechanical Ventilator 11/01/17 13:00 114 16 160/79 (106) 100 11/01/17 12:49 181/86 11/01/17 12:49 14 Mechanical Ventilator 11/01/17 12:30 105 14 30 11/01/17 12:00 112 11/01/17 12:00 Mechanical Ventilator 11/01/17 12:00 14 Mechanical Ventilator 11/01/17 12:00 30 11/01/17 12:00 98.6 112 14 144/88 (106) 100 98.6 11/01/17 11:00 111 16 157/86 (109) 100 11/01/17 11:00 14 Mechanical Ventilator 11/01/17 10:50 108 14 30 11/01/17 10:04 14 Mechanical Ventilator 11/01/17 10:00 113 14 155/82 (106) 100 11/01/17 09:00 115 14 152/85 (107) 100 11/01/17 09:00 14 Mechanical Ventilator 11/01/17 08:40 111 14 30 Intake and Output 11/01/17 11/02/17 19:00 07:00 Intake Total 542 ml 1686 ml Output Total 1010 ml 680 ml Balance -468 ml 1006 ml Free Water 120 ml IV Total 367 ml 1136 ml Tube Feeding 175 ml 430 ml Output Urine Total 1010 ml 680 ml Chest Tube Drainage Total 0 ml # Bowel Movements 1 Laboratory Tests 11/01/17 08:50: Arterial Blood pH 7.452H, Arterial Blood Partial Pressure CO2 27.8L, Arterial Blood Partial Pressure O2 128.3H, Arterial Blood HCO3 19.0L, Arterial Blood Oxygen Saturation 97.8, Arterial Blood Base Excess -3.8, Aj Test Positive 11/02/17 05:11: White Blood Count 13.3H, Red Blood Count 3.52L, Hemoglobin 10.4L, Hematocrit 31.9L, Mean Corpuscular Volume 91, Mean Corpuscular Hemoglobin 29.6, Mean Corpuscular Hemoglobin Concent 32.6, Red Cell Distribution Width 11.3L, Platelet Count 272, Mean Platelet Volume 7.0, Neutrophils (%) (Auto) 83.7H, Lymphocytes (%) (Auto) 9.9L, Monocytes (%) (Auto) 6.2, Eosinophils (%) (Auto) 0.1, Basophils (%) (Auto) 0.2, Sodium Level 144, Potassium Level 2.8L, Chloride Level 111H, Carbon Dioxide Level 24, Anion Gap 9, Blood Urea Nitrogen 17, Creatinine 0.9, Estimat Glomerular Filtration Rate > 60, Glucose Level 131H, Calcium Level 8.6, Total Bilirubin 0.2, Aspartate Amino Transf (AST/SGOT) 69H, Alanine Aminotransferase (ALT/SGPT) 79H, Alkaline Phosphatase 89, Pro-B-Type Natriuretic Peptide 291H, Total Protein 6.3L, Albumin 2.3L, Globulin 4.0, Albumin/Globulin Ratio 0.6L Height (Feet): 5 Height (Inches): 2.00 Weight (Pounds): 108 Objective HEAD AND NECK: No JVP. No LAD. No thyromegaly. Extraocular movement intact. Pupils are reactive to light and accommodation. LUNGS: Decreased breathing sounds on the right. Apparently, the patient received IJ placement this morning and later on patient developed a pneumothorax on the right side. ABDOMEN: Soft, nontender, and nondistended. EXTREMITIES: No edema. No clubbing. No cyanosis. The patient has Stefani Shabazz MD Nov 02, 2017 08:09
[2017-11-02] MEDS: Pantoprazole Inj IVP SCH (09:04)
[2017-11-02] MEDS: Heparin 5000 units/ml inj SUBQ SCH ×2 (09:05→20:43)
--- NOTE | 2017-11-02 09:40 | Diagnostic Imaging Report ---
Indication: Dyspnea Technique: One view of the chest Comparison: 11/01/2017 Findings: Stable satisfactory positions of endotracheal tube, nasogastric tube, right subclavian central venous catheter, right chest vent. Normal heart size. Lungs and pleural spaces remain clear. Left shoulder prosthesis again noted. No significant interim change Impression: Unchanged, over one day, findings as above.
[2017-11-02] MEDS ORDERED: Haloperidol 5mg/ml Inj IVPB PRN (09:45)
--- NOTE | 2017-11-02 09:45 | Pulmonolgy Critical Care Note ---
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 - Objective Last 24 Hour Vital Signs Date Time Temp Pulse Resp B/P (MAP) Pulse Ox O2 Delivery O2 Flow Rate FiO2 11/02/17 09:00 99 14 30 11/02/17 08:00 Mechanical Ventilator 11/02/17 08:00 30 11/02/17 08:00 102 11/02/17 08:00 98.7 99 14 103/79 (87) 99 98.7 11/02/17 07:23 98 14 30 11/02/17 07:00 102 14 159/75 (103) 99 11/02/17 07:00 14 Mechanical Ventilator 30 11/02/17 06:00 86 14 157/76 (103) 99 11/02/17 06:00 14 Mechanical Ventilator 30 11/02/17 05:30 85 14 140/81 (100) 99 11/02/17 05:20 100 14 30 11/02/17 05:00 84 14 130/81 (97) 99 11/02/17 05:00 15 Mechanical Ventilator 30 11/02/17 05:00 14 30 11/02/17 04:30 84 14 132/81 (98) 99 11/02/17 04:00 Mechanical Ventilator 11/02/17 04:00 30 11/02/17 04:00 14 Mechanical Ventilator 30 11/02/17 04:00 99.0 98 14 139/79 (99) 99 99.0 11/02/17 04:00 96 11/02/17 03:30 99 14 146/77 (100) 99 11/02/17 03:25 98 14 30 11/02/17 03:00 14 Mechanical Ventilator 30 11/02/17 03:00 99 14 139/81 (100) 99 11/02/17 02:30 84 14 124/76 (92) 99 11/02/17 02:00 14 Mechanical Ventilator 30 11/02/17 02:00 88 14 127/77 (94) 99 11/02/17 01:30 94 14 133/80 (97) 99 11/02/17 01:00 15 Mechanical Ventilator 30 11/02/17 01:00 108 14 140/78 (98) 100 11/02/17 00:55 94 14 30 11/02/17 00:38 166/105 11/02/17 00:30 103 14 148/75 (99) 100 11/02/17 00:06 14 Mechanical Ventilator 30 11/02/17 00:00 110 11/02/17 00:00 99.6 103 14 150/77 (101) 100 99.6 11/02/17 00:00 Mechanical Ventilator 11/02/17 00:00 30 11/01/17 23:30 108 14 161/78 (105) 100 11/01/17 23:00 14 Mechanical Ventilator 30 11/01/17 23:00 108 16 152/73 (99) 100 11/01/17 23:00 109 14 30 11/01/17 22:30 107 16 130/76 (94) 100 11/01/17 22:00 108 16 152/73 (99) 100 11/01/17 22:00 16 Mechanical Ventilator 30 11/01/17 21:30 112 16 136/78 (97) 100 11/01/17 21:14 14 Mechanical Ventilator 30 11/01/17 21:00 114 16 133/75 (94) 100 11/01/17 20:55 113 14 30 11/01/17 20:30 122 16 142/86 (104) 100 11/01/17 20:00 114 11/01/17 20:00 99.0 122 18 150/88 (108) 100 99.0 11/01/17 20:00 30 11/01/17 20:00 14 Mechanical Ventilator 30 11/01/17 20:00 Mechanical Ventilator 11/01/17 19:00 105 16 157/75 (102) 100 11/01/17 18:45 120 22 30 11/01/17 18:00 105 16 150/72 (98) 100 11/01/17 17:00 108 16 144/70 (94) 100 11/01/17 16:50 120 19 30 11/01/17 16:00 98.6 112 14 136/88 (104) 100 98.6 11/01/17 16:00 Mechanical Ventilator 11/01/17 16:00 113 11/01/17 16:00 30 11/01/17 15:00 102 16 140/69 (92) 100 11/01/17 15:00 106 14 30 11/01/17 14:00 113 16 134/81 (98) 100 11/01/17 14:00 14 Mechanical Ventilator 11/01/17 13:00 114 16 160/79 (106) 100 11/01/17 12:49 181/86 11/01/17 12:49 14 Mechanical Ventilator 11/01/17 12:30 105 14 30 11/01/17 12:00 112 11/01/17 12:00 Mechanical Ventilator 11/01/17 12:00 14 Mechanical Ventilator 11/01/17 12:00 30 11/01/17 12:00 98.6 112 14 144/88 (106) 100 98.6 11/01/17 11:00 111 16 157/86 (109) 100 11/01/17 11:00 14 Mechanical Ventilator 11/01/17 10:50 108 14 30 11/01/17 10:04 14 Mechanical Ventilator 11/01/17 10:00 113 14 155/82 (106) 100 Status: awake Condition: critical Neck: full ROM Heart: HR/BP stable Abdomen: soft, active bowel sounds Extremities: no C/C/E Micro: Microbiology Date/Time Source Procedure Growth Status 10/30/17 11:01 Sputum Induced Gram Stain - Final Complete 10/30/17 11:01 Sputum Culture - Final Stenotrophomonas Maltophilia Usual Respiratory Maria Elena Complete 10/31/17 16:10 Indwelling Cath Urine Culture - Preliminary NO GROWTH AFTER 24 HOURS Resulted Accucheck: 110 Critical Care - Subjective ROS Limited/Unobtainable: Yes Condition: critical EKG Rhythm: Sinus Rhythm FI02: 30 Vent Support Breath Rate: 14 Vent Support Mode: AC Vent Tidal Volume: 600 Sputum Amount: Moderate PIP: 22 Tube Feeding Amount: 40 I&O: Intake and Output 11/01/17 11/02/17 19:00 07:00 Intake Total 542 ml 1686 ml Output Total 1010 ml 680 ml Balance -468 ml 1006 ml Free Water 120 ml IV Total 367 ml 1136 ml Tube Feeding 175 ml 430 ml Output Urine Total 1010 ml 680 ml Chest Tube Drainage Total 0 ml # Bowel Movements 1 ET-Tube: 7.5 ET Position: 23 Labs: Laboratory Tests Test 11/02/17 05:11 White Blood Count 13.3 K/UL (4.8-10.8) H Red Blood Count 3.52 M/UL (4.20-5.40) L Hemoglobin 10.4 G/DL (12.0-16.0) L Hematocrit 31.9 % (37.0-47.0) L Mean Corpuscular Volume 91 FL (80-99) Mean Corpuscular Hemoglobin 29.6 PG (27.0-31.0) Mean Corpuscular Hemoglobin Concent 32.6 G/DL (32.0-36.0) Red Cell Distribution Width 11.3 % (11.6-14.8) L Platelet Count 272 K/UL (150-450) Mean Platelet Volume 7.0 FL (6.5-10.1) Neutrophils (%) (Auto) 83.7 % (45.0-75.0) H Lymphocytes (%) (Auto) 9.9 % (20.0-45.0) L Monocytes (%) (Auto) 6.2 % (1.0-10.0) Eosinophils (%) (Auto) 0.1 % (0.0-3.0) Basophils (%) (Auto) 0.2 % (0.0-2.0) Sodium Level 144 MMOL/L (136-145) Potassium Level 2.8 MMOL/L (3.5-5.1) L Chloride Level 111 MMOL/L (98-107) H Carbon Dioxide Level 24 MMOL/L (21-32) Anion Gap 9 mmol/L (5-15) Blood Urea Nitrogen 17 mg/dL (7-18) Creatinine 0.9 MG/DL (0.55-1.30) Estimat Glomerular Filtration Rate > 60 mL/min (>60) Glucose Level 131 MG/DL (74-106) H Calcium Level 8.6 MG/DL (8.5-10.1) Total Bilirubin 0.2 MG/DL (0.2-1.0) Aspartate Amino Transf (AST/SGOT) 69 U/L (15-37) H Alanine Aminotransferase (ALT/SGPT) 79 U/L (12-78) H Alkaline Phosphatase 89 U/L (46-116) Pro-B-Type Natriuretic Peptide 291 pg/mL (0-125) H Total Protein 6.3 G/DL (6.4-8.2) L Albumin 2.3 G/DL (3.4-5.0) L Globulin 4.0 g/dL Albumin/Globulin Ratio 0.6 (1.0-2.7) L Evan Purcell MD Nov 02, 2017 09:45
[2017-11-02] MEDS ORDERED: Haloperidol Lactate 5 MG in D5W 55 ML IVPB PRN (10:00)
--- NOTE | 2017-11-02 11:24 | Infectious Diseases Prog Note ---
Assessment/Plan Assessment/Plan 57 yo female who presented to the ED on 10/30/17 after pulmonary arrest. Sepsis - Probable Asp PNA and UTI On Abx f/u Sputum Cultures - Predominantly NF - +1 Steno Will hold off Tx of Steno as patient improving f/u Urine Cx Leukocytosis - WBCs 16 after seizure No Fevers Seizures - Had Seizure on route to ED 10/30/17 and in the ICU as well Drug abuse - Pos for cocaine Arthritis Chronic pain. P: Continue Ceftriaxone #2 and Flagyl #3 for asp PNA and UTI Ceftriaxone has good Gp and Gn coverage. She was given a dose in the ED and had no adverse reaction. 10/31 Vancomycin #1 10/31 Aztreonam 10/30 SP Ceftriaxone Monitor CBC and Temps Vent management per pulm We will continue to follow the patient during this hospitalization. Subjective Allergies: Coded Allergies: ASPIRIN (Verified Allergy, Unknown, 10/30/17) PENICILLINS (Verified Allergy, Unknown, 10/30/17) UNABLE TO ASSESS (Unverified , 10/29/17) Subjective Patient intubated and sedated Afebrile On 30% FiO2 Objective Vital Signs Last 24 Hour Vital Signs Date Time Temp Pulse Resp B/P (MAP) Pulse Ox O2 Delivery O2 Flow Rate FiO2 11/02/17 10:00 117 14 144/69 (94) 99 11/02/17 09:00 102 14 152/75 (100) 99 11/02/17 09:00 99 14 30 11/02/17 08:00 Mechanical Ventilator 11/02/17 08:00 30 11/02/17 08:00 102 11/02/17 08:00 98.7 99 14 103/79 (87) 99 98.7 11/02/17 07:23 98 14 30 11/02/17 07:00 102 14 159/75 (103) 99 11/02/17 07:00 14 Mechanical Ventilator 30 11/02/17 06:00 86 14 157/76 (103) 99 11/02/17 06:00 14 Mechanical Ventilator 30 11/02/17 05:30 85 14 140/81 (100) 99 11/02/17 05:20 100 14 30 11/02/17 05:00 84 14 130/81 (97) 99 11/02/17 05:00 15 Mechanical Ventilator 30 11/02/17 05:00 14 30 11/02/17 04:30 84 14 132/81 (98) 99 11/02/17 04:00 Mechanical Ventilator 11/02/17 04:00 30 11/02/17 04:00 14 Mechanical Ventilator 30 11/02/17 04:00 99.0 98 14 139/79 (99) 99 99.0 11/02/17 04:00 96 11/02/17 03:30 99 14 146/77 (100) 99 11/02/17 03:25 98 14 30 11/02/17 03:00 14 Mechanical Ventilator 30 11/02/17 03:00 99 14 139/81 (100) 99 11/02/17 02:30 84 14 124/76 (92) 99 11/02/17 02:00 14 Mechanical Ventilator 30 11/02/17 02:00 88 14 127/77 (94) 99 11/02/17 01:30 94 14 133/80 (97) 99 11/02/17 01:00 15 Mechanical Ventilator 30 11/02/17 01:00 108 14 140/78 (98) 100 11/02/17 00:55 94 14 30 11/02/17 00:38 166/105 11/02/17 00:30 103 14 148/75 (99) 100 11/02/17 00:06 14 Mechanical Ventilator 30 11/02/17 00:00 110 11/02/17 00:00 99.6 103 14 150/77 (101) 100 99.6 11/02/17 00:00 Mechanical Ventilator 11/02/17 00:00 30 11/01/17 23:30 108 14 161/78 (105) 100 11/01/17 23:00 14 Mechanical Ventilator 30 11/01/17 23:00 108 16 152/73 (99) 100 11/01/17 23:00 109 14 30 11/01/17 22:30 107 16 130/76 (94) 100 11/01/17 22:00 108 16 152/73 (99) 100 11/01/17 22:00 16 Mechanical Ventilator 30 11/01/17 21:30 112 16 136/78 (97) 100 11/01/17 21:14 14 Mechanical Ventilator 30 11/01/17 21:00 114 16 133/75 (94) 100 11/01/17 20:55 113 14 30 11/01/17 20:30 122 16 142/86 (104) 100 11/01/17 20:00 114 11/01/17 20:00 99.0 122 18 150/88 (108) 100 99.0 11/01/17 20:00 30 11/01/17 20:00 14 Mechanical Ventilator 30 11/01/17 20:00 Mechanical Ventilator 11/01/17 19:00 105 16 157/75 (102) 100 11/01/17 18:45 120 22 30 11/01/17 18:00 105 16 150/72 (98) 100 11/01/17 17:00 108 16 144/70 (94) 100 11/01/17 16:50 120 19 30 11/01/17 16:00 98.6 112 14 136/88 (104) 100 98.6 11/01/17 16:00 Mechanical Ventilator 11/01/17 16:00 113 11/01/17 16:00 30 11/01/17 15:00 102 16 140/69 (92) 100 11/01/17 15:00 106 14 30 11/01/17 14:00 113 16 134/81 (98) 100 11/01/17 14:00 14 Mechanical Ventilator 11/01/17 13:00 114 16 160/79 (106) 100 11/01/17 12:49 181/86 11/01/17 12:49 14 Mechanical Ventilator 11/01/17 12:30 105 14 30 11/01/17 12:00 112 11/01/17 12:00 Mechanical Ventilator 11/01/17 12:00 14 Mechanical Ventilator 11/01/17 12:00 30 11/01/17 12:00 98.6 112 14 144/88 (106) 100 98.6 Height (Feet): 5 Height (Inches): 2.00 Weight (Pounds): 108 Objective Gen: NAD, intubated on Vent 30% O2 HEENT: NCAT, MMM, PERRL, No Oral lesion, no scleral icterus, Missing multiple teeth LUNGS: Mechanical breath sounds CARDS: RRR, S1, S2, No M/R/G, ABD: Soft, NT, ND, No R/G, + BS Ext: C/C/E, Pulses 2+ B/L (DP, Rad): NEURO: Sedated but responds to touch Microbiology Date/Time Source Procedure Growth Status 10/31/17 16:10 Indwelling Cath Urine Culture - Preliminary NO GROWTH AFTER 24 HOURS Resulted Laboratory Tests Test 11/02/17 05:11 White Blood Count 13.3 K/UL (4.8-10.8) H Red Blood Count 3.52 M/UL (4.20-5.40) L Hemoglobin 10.4 G/DL (12.0-16.0) L Hematocrit 31.9 % (37.0-47.0) L Mean Corpuscular Volume 91 FL (80-99) Mean Corpuscular Hemoglobin 29.6 PG (27.0-31.0) Mean Corpuscular Hemoglobin Concent 32.6 G/DL (32.0-36.0) Red Cell Distribution Width 11.3 % (11.6-14.8) L Platelet Count 272 K/UL (150-450) Mean Platelet Volume 7.0 FL (6.5-10.1) Neutrophils (%) (Auto) 83.7 % (45.0-75.0) H Lymphocytes (%) (Auto) 9.9 % (20.0-45.0) L Monocytes (%) (Auto) 6.2 % (1.0-10.0) Eosinophils (%) (Auto) 0.1 % (0.0-3.0) Basophils (%) (Auto) 0.2 % (0.0-2.0) Sodium Level 144 MMOL/L (136-145) Potassium Level 2.8 MMOL/L (3.5-5.1) L Chloride Level 111 MMOL/L (98-107) H Carbon Dioxide Level 24 MMOL/L (21-32) Anion Gap 9 mmol/L (5-15) Blood Urea Nitrogen 17 mg/dL (7-18) Creatinine 0.9 MG/DL (0.55-1.30) Estimat Glomerular Filtration Rate > 60 mL/min (>60) Glucose Level 131 MG/DL (74-106) H Calcium Level 8.6 MG/DL (8.5-10.1) Total Bilirubin 0.2 MG/DL (0.2-1.0) Aspartate Amino Transf (AST/SGOT) 69 U/L (15-37) H Alanine Aminotransferase (ALT/SGPT) 79 U/L (12-78) H Alkaline Phosphatase 89 U/L (46-116) Pro-B-Type Natriuretic Peptide 291 pg/mL (0-125) H Total Protein 6.3 G/DL (6.4-8.2) L Albumin 2.3 G/DL (3.4-5.0) L Globulin 4.0 g/dL Albumin/Globulin Ratio 0.6 (1.0-2.7) L Current Medications Medications (Trade) Dose Ordered Sig/Yung Route PRN Reason Start Time Stop Time Status Last Admin Dose Admin Acetaminophen (Tylenol) 650 mg Q4H PRN RECTAL Prn Headache/Temp > 101 10/30/17 16:45 11/29/17 16:44 10/31/17 21:24 Albuterol/ Ipratropium (Albuterol/ Ipratropium) 3 ml Q4H PRN HHN Shortness of Breath 10/30/17 08:00 11/04/17 07:59 Ceftriaxone Sodium 1 gm/ Dextrose 55 ml @ 110 mls/hr Q24H IVPB 10/31/17 14:00 11/07/17 13:59 11/01/17 14:00 Chlorhexidine Gluconate (Sunita-Hex 2%) 1 applic DAILY@2000 TOPIC 10/30/17 20:00 11/29/17 19:59 11/01/17 20:06 Clonidine HCl (Catapres Tab) 0.1 mg Q4H PRN ORAL for SBP >160 11/01/17 13:00 12/01/17 12:59 11/02/17 00:38 Dextrose (Dextrose 50%) 25 ml STAT PRN IV Hypoglycemia 10/30/17 08:00 11/29/17 07:59 Dextrose (Dextrose 50%) 50 ml STAT PRN IV Hypoglycemia 10/30/17 08:00 11/29/17 07:59 10/31/17 04:31 Haloperidol Lactate 5 mg/ Dextrose 56 ml @ 112 mls/hr Q1H PRN IVPB Agitation 11/02/17 10:00 12/02/17 09:59 Heparin Sodium (Porcine) (Heparin 5000 units/ml) 5,000 units EVERY 12 HOURS SUBQ 10/30/17 09:00 11/29/17 08:59 11/02/17 09:05 Hydrocortisone (Solu-CORTEF) 50 mg DAILY IV 11/03/17 09:00 11/30/17 18:29 Levetiracetam 100 ml @ 400 mls/hr Q8H IVPB 10/30/17 17:00 11/29/17 16:59 11/02/17 09:04 Metronidazole 100 ml @ 100 mls/hr Q8H IVPB 10/30/17 11:00 11/06/17 10:59 11/02/17 03:23 Morphine Sulfate (Morphine Sulfate) 4 mg Q4H PRN IVP Severe Pain (Pain Scale 7-10) 10/30/17 08:00 11/06/17 07:59 11/01/17 20:09 Nitroglycerin (Ntg) 0.4 mg Q5M PRN SL Prn Chest Pain 10/30/17 08:00 11/29/17 07:59 Ondansetron HCl (Zofran) 4 mg Q6H PRN IVP Nausea & Vomiting 10/30/17 08:00 11/29/17 07:59 Pantoprazole (Protonix) 40 mg DAILY IVP 11/02/17 09:00 12/02/17 08:59 11/02/17 09:04 Phenytoin 100 mg/ Sodium Chloride 57 ml @ 114 mls/hr [id number] PHENYTOIN IVPB 10/30/17 16:00 11/29/17 15:59 11/02/17 09:05 Potassium Chloride 100 ml @ 50 mls/hr Q2H IVPB 11/02/17 08:30 11/02/17 14:29 11/02/17 10:48 Sodium Chloride 1,000 ml @ 75 mls/hr [id number] IV 11/01/17 13:00 12/01/17 12:59 11/02/17 03:23 Gutierrez Sifuentes MD Nov 02, 2017 11:24
--- NOTE | 2017-11-02 12:35 | GI Progress Note ---
Assessment/Plan Problems: (1) Malnutrition ICD Codes: E46 - Unspecified protein-calorie malnutrition SNOMED: 83492482 (2) Diabetes ICD Codes: E11.9 - Type 2 diabetes mellitus without complications SNOMED: 85374946 (3) Encephalopathy ICD Codes: G93.40 - Encephalopathy, unspecified SNOMED: 12047368 (4) Aspiration into airway ICD Codes: T17.908A - Unspecified foreign body in respiratory tract, part unspecified causing other injury, initial encounter SNOMED: 262373801, 231178638 (5) Cocaine abuse ICD Codes: F14.10 - Cocaine abuse, uncomplicated SNOMED: 36234911 Status: stable Status Narrative Discussed with Dr. Sauceda. Assessment/Plan shocked liver supportive care electrolyte replacement OTFs per RD on Dilantin, can affect liver function trend LFTs ppi fu labs The patient was seen and examined at bedside and all new and available data was reviewed in the patients chart. I agree with the above findings, impression and plan. (Patient seen earlier today. Signature stamp does not reflect patient encounter time.). - Renaldo Sauceda MD Subjective Subjective limited Objective Last 24 Hour Vital Signs Date Time Temp Pulse Resp B/P (MAP) Pulse Ox O2 Delivery O2 Flow Rate FiO2 11/02/17 12:00 113 11/02/17 12:00 30 11/02/17 12:00 113 14 156/92 (113) 99 11/02/17 11:10 98 14 30 11/02/17 11:00 107 14 165/80 (108) 99 11/02/17 10:00 117 14 144/69 (94) 99 11/02/17 09:00 102 14 152/75 (100) 99 11/02/17 09:00 99 14 30 11/02/17 08:00 Mechanical Ventilator 11/02/17 08:00 30 11/02/17 08:00 102 11/02/17 08:00 98.7 99 14 103/79 (87) 99 98.7 11/02/17 07:23 98 14 30 11/02/17 07:00 102 14 159/75 (103) 99 11/02/17 07:00 14 Mechanical Ventilator 30 11/02/17 06:00 86 14 157/76 (103) 99 11/02/17 06:00 14 Mechanical Ventilator 30 11/02/17 05:30 85 14 140/81 (100) 99 11/02/17 05:20 100 14 30 11/02/17 05:00 84 14 130/81 (97) 99 11/02/17 05:00 15 Mechanical Ventilator 30 11/02/17 05:00 14 30 11/02/17 04:30 84 14 132/81 (98) 99 11/02/17 04:00 Mechanical Ventilator 11/02/17 04:00 30 11/02/17 04:00 14 Mechanical Ventilator 30 11/02/17 04:00 99.0 98 14 139/79 (99) 99 99.0 11/02/17 04:00 96 11/02/17 03:30 99 14 146/77 (100) 99 11/02/17 03:25 98 14 30 11/02/17 03:00 14 Mechanical Ventilator 30 11/02/17 03:00 99 14 139/81 (100) 99 11/02/17 02:30 84 14 124/76 (92) 99 11/02/17 02:00 14 Mechanical Ventilator 30 11/02/17 02:00 88 14 127/77 (94) 99 11/02/17 01:30 94 14 133/80 (97) 99 11/02/17 01:00 15 Mechanical Ventilator 30 11/02/17 01:00 108 14 140/78 (98) 100 11/02/17 00:55 94 14 30 11/02/17 00:38 166/105 11/02/17 00:30 103 14 148/75 (99) 100 11/02/17 00:06 14 Mechanical Ventilator 30 11/02/17 00:00 110 11/02/17 00:00 99.6 103 14 150/77 (101) 100 99.6 11/02/17 00:00 Mechanical Ventilator 11/02/17 00:00 30 11/01/17 23:30 108 14 161/78 (105) 100 11/01/17 23:00 14 Mechanical Ventilator 30 11/01/17 23:00 108 16 152/73 (99) 100 11/01/17 23:00 109 14 30 11/01/17 22:30 107 16 130/76 (94) 100 11/01/17 22:00 108 16 152/73 (99) 100 11/01/17 22:00 16 Mechanical Ventilator 30 11/01/17 21:30 112 16 136/78 (97) 100 11/01/17 21:14 14 Mechanical Ventilator 30 11/01/17 21:00 114 16 133/75 (94) 100 11/01/17 20:55 113 14 30 11/01/17 20:30 122 16 142/86 (104) 100 11/01/17 20:00 114 11/01/17 20:00 99.0 122 18 150/88 (108) 100 99.0 11/01/17 20:00 30 11/01/17 20:00 14 Mechanical Ventilator 30 11/01/17 20:00 Mechanical Ventilator 11/01/17 19:00 105 16 157/75 (102) 100 11/01/17 18:45 120 22 30 11/01/17 18:00 105 16 150/72 (98) 100 11/01/17 17:00 108 16 144/70 (94) 100 11/01/17 16:50 120 19 30 11/01/17 16:00 98.6 112 14 136/88 (104) 100 98.6 11/01/17 16:00 Mechanical Ventilator 11/01/17 16:00 113 11/01/17 16:00 30 11/01/17 15:00 102 16 140/69 (92) 100 11/01/17 15:00 106 14 30 11/01/17 14:00 113 16 134/81 (98) 100 11/01/17 14:00 14 Mechanical Ventilator 11/01/17 13:00 114 16 160/79 (106) 100 11/01/17 12:49 181/86 11/01/17 12:49 14 Mechanical Ventilator Intake and Output 11/01/17 11/02/17 19:00 07:00 Intake Total 542 ml 1686 ml Output Total 1010 ml 680 ml Balance -468 ml 1006 ml Free Water 120 ml IV Total 367 ml 1136 ml Tube Feeding 175 ml 430 ml Output Urine Total 1010 ml 680 ml Chest Tube Drainage Total 0 ml # Bowel Movements 1 Laboratory Tests Test 11/02/17 05:11 White Blood Count 13.3 K/UL (4.8-10.8) H Red Blood Count 3.52 M/UL (4.20-5.40) L Hemoglobin 10.4 G/DL (12.0-16.0) L Hematocrit 31.9 % (37.0-47.0) L Mean Corpuscular Volume 91 FL (80-99) Mean Corpuscular Hemoglobin 29.6 PG (27.0-31.0) Mean Corpuscular Hemoglobin Concent 32.6 G/DL (32.0-36.0) Red Cell Distribution Width 11.3 % (11.6-14.8) L Platelet Count 272 K/UL (150-450) Mean Platelet Volume 7.0 FL (6.5-10.1) Neutrophils (%) (Auto) 83.7 % (45.0-75.0) H Lymphocytes (%) (Auto) 9.9 % (20.0-45.0) L Monocytes (%) (Auto) 6.2 % (1.0-10.0) Eosinophils (%) (Auto) 0.1 % (0.0-3.0) Basophils (%) (Auto) 0.2 % (0.0-2.0) Sodium Level 144 MMOL/L (136-145) Potassium Level 2.8 MMOL/L (3.5-5.1) L Chloride Level 111 MMOL/L (98-107) H Carbon Dioxide Level 24 MMOL/L (21-32) Anion Gap 9 mmol/L (5-15) Blood Urea Nitrogen 17 mg/dL (7-18) Creatinine 0.9 MG/DL (0.55-1.30) Estimat Glomerular Filtration Rate > 60 mL/min (>60) Glucose Level 131 MG/DL (74-106) H Calcium Level 8.6 MG/DL (8.5-10.1) Total Bilirubin 0.2 MG/DL (0.2-1.0) Aspartate Amino Transf (AST/SGOT) 69 U/L (15-37) H Alanine Aminotransferase (ALT/SGPT) 79 U/L (12-78) H Alkaline Phosphatase 89 U/L (46-116) Pro-B-Type Natriuretic Peptide 291 pg/mL (0-125) H Total Protein 6.3 G/DL (6.4-8.2) L Albumin 2.3 G/DL (3.4-5.0) L Globulin 4.0 g/dL Albumin/Globulin Ratio 0.6 (1.0-2.7) L Height (Feet): 5 Height (Inches): 2.00 Weight (Pounds): 108 General Appearance: WD/WN, no apparent distress, alert, thin, other - obtunded Cardiovascular: normal rate Respiratory/Chest: no respiratory distress, other - intubated Abdominal Exam: normal bowel sounds, non tender, soft, other - OGT Extremities: non-tender Risa Davenport NP Nov 02, 2017 12:35
[2017-11-02] MEDS: cefTRIAXone 1 GM in D5W 55 ML IVPB SCH (14:00)
--- NOTE | 2017-11-02 14:17 | General Progress Note ---
Assessment/Plan Problem List: (1) Respiratory failure ICD Codes: J96.90 - Respiratory failure, unspecified, unspecified whether with hypoxia or hypercapnia SNOMED: 434204476 (2) Malnutrition ICD Codes: E46 - Unspecified protein-calorie malnutrition SNOMED: 60480633 (3) Renal insufficiency ICD Codes: N28.9 - Disorder of kidney and ureter, unspecified SNOMED: 409375384, 969482088 (4) UTI (urinary tract infection) ICD Codes: N39.0 - Urinary tract infection, site not specified SNOMED: 79793796 (5) Seizure ICD Codes: R56.9 - Unspecified convulsions SNOMED: 64763310 (6) HTN (hypertension) ICD Codes: I10 - Essential (primary) hypertension SNOMED: 85250340 (7) Diabetes ICD Codes: E11.9 - Type 2 diabetes mellitus without complications SNOMED: 18680268 Status: unchanged Assessment/Plan vent abx detox neph f/u cbc bmp am Subjective Constitutional: Reports: weakness Allergies: Coded Allergies: ASPIRIN (Verified Allergy, Unknown, 10/30/17) PENICILLINS (Verified Allergy, Unknown, 10/30/17) UNABLE TO ASSESS (Unverified , 10/29/17) All Systems: reviewed and negative except above Subjective intubated sedated in icu Objective Last 24 Hour Vital Signs Date Time Temp Pulse Resp B/P (MAP) Pulse Ox O2 Delivery O2 Flow Rate FiO2 11/02/17 12:59 115 15 30 11/02/17 12:00 113 11/02/17 12:00 30 11/02/17 12:00 113 14 156/92 (113) 99 11/02/17 11:10 98 14 30 11/02/17 11:00 107 14 165/80 (108) 99 11/02/17 10:00 117 14 144/69 (94) 99 11/02/17 09:00 102 14 152/75 (100) 99 11/02/17 09:00 99 14 30 11/02/17 08:00 Mechanical Ventilator 11/02/17 08:00 30 11/02/17 08:00 102 11/02/17 08:00 98.7 99 14 103/79 (87) 99 98.7 11/02/17 07:23 98 14 30 11/02/17 07:00 102 14 159/75 (103) 99 11/02/17 07:00 14 Mechanical Ventilator 30 11/02/17 06:00 86 14 157/76 (103) 99 11/02/17 06:00 14 Mechanical Ventilator 30 11/02/17 05:30 85 14 140/81 (100) 99 11/02/17 05:20 100 14 30 11/02/17 05:00 84 14 130/81 (97) 99 11/02/17 05:00 15 Mechanical Ventilator 30 11/02/17 05:00 14 30 11/02/17 04:30 84 14 132/81 (98) 99 11/02/17 04:00 Mechanical Ventilator 11/02/17 04:00 30 11/02/17 04:00 14 Mechanical Ventilator 30 11/02/17 04:00 99.0 98 14 139/79 (99) 99 99.0 11/02/17 04:00 96 11/02/17 03:30 99 14 146/77 (100) 99 11/02/17 03:25 98 14 30 11/02/17 03:00 14 Mechanical Ventilator 30 11/02/17 03:00 99 14 139/81 (100) 99 11/02/17 02:30 84 14 124/76 (92) 99 11/02/17 02:00 14 Mechanical Ventilator 30 11/02/17 02:00 88 14 127/77 (94) 99 11/02/17 01:30 94 14 133/80 (97) 99 11/02/17 01:00 15 Mechanical Ventilator 30 11/02/17 01:00 108 14 140/78 (98) 100 11/02/17 00:55 94 14 30 11/02/17 00:38 166/105 11/02/17 00:30 103 14 148/75 (99) 100 11/02/17 00:06 14 Mechanical Ventilator 30 11/02/17 00:00 110 11/02/17 00:00 99.6 103 14 150/77 (101) 100 99.6 11/02/17 00:00 Mechanical Ventilator 11/02/17 00:00 30 11/01/17 23:30 108 14 161/78 (105) 100 11/01/17 23:00 14 Mechanical Ventilator 30 11/01/17 23:00 108 16 152/73 (99) 100 11/01/17 23:00 109 14 30 11/01/17 22:30 107 16 130/76 (94) 100 11/01/17 22:00 108 16 152/73 (99) 100 11/01/17 22:00 16 Mechanical Ventilator 30 11/01/17 21:30 112 16 136/78 (97) 100 11/01/17 21:14 14 Mechanical Ventilator 30 11/01/17 21:00 114 16 133/75 (94) 100 11/01/17 20:55 113 14 30 11/01/17 20:30 122 16 142/86 (104) 100 11/01/17 20:00 114 11/01/17 20:00 99.0 122 18 150/88 (108) 100 99.0 11/01/17 20:00 30 11/01/17 20:00 14 Mechanical Ventilator 30 11/01/17 20:00 Mechanical Ventilator 11/01/17 19:00 105 16 157/75 (102) 100 11/01/17 18:45 120 22 30 11/01/17 18:00 105 16 150/72 (98) 100 11/01/17 17:00 108 16 144/70 (94) 100 11/01/17 16:50 120 19 30 11/01/17 16:00 98.6 112 14 136/88 (104) 100 98.6 11/01/17 16:00 Mechanical Ventilator 11/01/17 16:00 113 11/01/17 16:00 30 11/01/17 15:00 102 16 140/69 (92) 100 11/01/17 15:00 106 14 30 Intake and Output 11/01/17 11/02/17 19:00 07:00 Intake Total 542 ml 1686 ml Output Total 1010 ml 680 ml Balance -468 ml 1006 ml Free Water 120 ml IV Total 367 ml 1136 ml Tube Feeding 175 ml 430 ml Output Urine Total 1010 ml 680 ml Chest Tube Drainage Total 0 ml # Bowel Movements 1 Laboratory Tests 11/02/17 05:11: White Blood Count 13.3H, Red Blood Count 3.52L, Hemoglobin 10.4L, Hematocrit 31.9L, Mean Corpuscular Volume 91, Mean Corpuscular Hemoglobin 29.6, Mean Corpuscular Hemoglobin Concent 32.6, Red Cell Distribution Width 11.3L, Platelet Count 272, Mean Platelet Volume 7.0, Neutrophils (%) (Auto) 83.7H, Lymphocytes (%) (Auto) 9.9L, Monocytes (%) (Auto) 6.2, Eosinophils (%) (Auto) 0.1, Basophils (%) (Auto) 0.2, Sodium Level 144, Potassium Level 2.8L, Chloride Level 111H, Carbon Dioxide Level 24, Anion Gap 9, Blood Urea Nitrogen 17, Creatinine 0.9, Estimat Glomerular Filtration Rate > 60, Glucose Level 131H, Calcium Level 8.6, Total Bilirubin 0.2, Aspartate Amino Transf (AST/SGOT) 69H, Alanine Aminotransferase (ALT/SGPT) 79H, Alkaline Phosphatase 89, Pro-B-Type Natriuretic Peptide 291H, Total Protein 6.3L, Albumin 2.3L, Globulin 4.0, Albumin/Globulin Ratio 0.6L Height (Feet): 5 Height (Inches): 2.00 Weight (Pounds): 108 General Appearance: lethargic EENT: normal ENT inspection Neck: normal alignment Cardiovascular: normal peripheral pulses, normal rate, regular rhythm Respiratory/Chest: chest wall non-tender, decreased breath sounds Abdomen: normal bowel sounds, non tender, soft Extremities: normal inspection Edema: no edema noted Arm (L), no edema noted Arm (R), no edema noted Leg (L), no edema noted Leg (R), no edema noted Pedal (L), no edema noted Pedal (R), no edema noted Generalized Neurologic: motor weakness Skin: normal pigmentation, warm/dry Josias Skinner DO Nov 02, 2017 14:17
--- NOTE | 2017-11-02 15:11 | General Progress Note ---
Progress Note Progress Note Surgery: chest tube placed to water seal today. AM CXR will plan to d/c thoravent tomorrow if cxr stable Ho Man Nov 02, 2017 15:11
--- NOTE | 2017-11-02 18:32 | General Progress Note ---
Assessment/Plan Problem List: (1) Hypoglycemia ICD Codes: E16.2 - Hypoglycemia, unspecified SNOMED: 558646662 (2) SLE (systemic lupus erythematosus) ICD Codes: M32.9 - Systemic lupus erythematosus, unspecified SNOMED: 71028514 (3) Cocaine abuse ICD Codes: F14.10 - Cocaine abuse, uncomplicated SNOMED: 47582439 (4) Elevated transaminase measurement ICD Codes: R74.0 - Nonspecific elevation of levels of transaminase and lactic acid dehydrogenase [LDH] SNOMED: 855210650, 229788357 (5) Diabetes ICD Codes: E11.9 - Type 2 diabetes mellitus without complications SNOMED: 09836264 Assessment/Plan - continue SoluCortef 50 mg - continue BG monitoring - hypoglycemia protocol Subjective ROS Limited/Unobtainable: Yes Allergies: Coded Allergies: ASPIRIN (Verified Allergy, Unknown, 10/30/17) PENICILLINS (Verified Allergy, Unknown, 10/30/17) UNABLE TO ASSESS (Unverified , 10/29/17) Subjective intubated in icu chest tube in right chest Objective Last 24 Hour Vital Signs Date Time Temp Pulse Resp B/P (MAP) Pulse Ox O2 Delivery O2 Flow Rate FiO2 11/02/17 16:34 131 24 30 11/02/17 16:00 110 14 139/77 (97) 99 11/02/17 16:00 30 11/02/17 16:00 Mechanical Ventilator 11/02/17 16:00 111 11/02/17 15:00 115 15 30 11/02/17 15:00 107 14 136/83 (100) 99 11/02/17 14:00 101 14 140/92 (108) 99 11/02/17 13:00 98.9 100 14 147/78 (101) 99 98.9 11/02/17 12:59 115 15 30 11/02/17 12:00 113 11/02/17 12:00 30 11/02/17 12:00 113 14 156/92 (113) 99 11/02/17 12:00 Mechanical Ventilator 11/02/17 11:10 98 14 30 11/02/17 11:00 107 14 165/80 (108) 99 11/02/17 10:00 117 14 144/69 (94) 99 11/02/17 09:00 102 14 152/75 (100) 99 11/02/17 09:00 99 14 30 11/02/17 08:00 Mechanical Ventilator 11/02/17 08:00 30 11/02/17 08:00 102 11/02/17 08:00 98.7 99 14 103/79 (87) 99 98.7 11/02/17 07:23 98 14 30 11/02/17 07:00 102 14 159/75 (103) 99 11/02/17 07:00 14 Mechanical Ventilator 30 11/02/17 06:00 86 14 157/76 (103) 99 11/02/17 06:00 14 Mechanical Ventilator 30 11/02/17 05:30 85 14 140/81 (100) 99 11/02/17 05:20 100 14 30 11/02/17 05:00 84 14 130/81 (97) 99 11/02/17 05:00 15 Mechanical Ventilator 30 11/02/17 05:00 14 30 11/02/17 04:30 84 14 132/81 (98) 99 11/02/17 04:00 Mechanical Ventilator 11/02/17 04:00 30 11/02/17 04:00 14 Mechanical Ventilator 30 11/02/17 04:00 99.0 98 14 139/79 (99) 99 99.0 11/02/17 04:00 96 11/02/17 03:30 99 14 146/77 (100) 99 11/02/17 03:25 98 14 30 11/02/17 03:00 14 Mechanical Ventilator 30 11/02/17 03:00 99 14 139/81 (100) 99 11/02/17 02:30 84 14 124/76 (92) 99 11/02/17 02:00 14 Mechanical Ventilator 30 11/02/17 02:00 88 14 127/77 (94) 99 11/02/17 01:30 94 14 133/80 (97) 99 11/02/17 01:00 15 Mechanical Ventilator 30 11/02/17 01:00 108 14 140/78 (98) 100 11/02/17 00:55 94 14 30 11/02/17 00:38 166/105 11/02/17 00:30 103 14 148/75 (99) 100 11/02/17 00:06 14 Mechanical Ventilator 30 11/02/17 00:00 110 11/02/17 00:00 99.6 103 14 150/77 (101) 100 99.6 11/02/17 00:00 Mechanical Ventilator 11/02/17 00:00 30 11/01/17 23:30 108 14 161/78 (105) 100 11/01/17 23:00 14 Mechanical Ventilator 30 11/01/17 23:00 108 16 152/73 (99) 100 11/01/17 23:00 109 14 30 11/01/17 22:30 107 16 130/76 (94) 100 11/01/17 22:00 108 16 152/73 (99) 100 11/01/17 22:00 16 Mechanical Ventilator 30 11/01/17 21:30 112 16 136/78 (97) 100 11/01/17 21:14 14 Mechanical Ventilator 30 11/01/17 21:00 114 16 133/75 (94) 100 11/01/17 20:55 113 14 30 11/01/17 20:30 122 16 142/86 (104) 100 11/01/17 20:00 114 11/01/17 20:00 99.0 122 18 150/88 (108) 100 99.0 11/01/17 20:00 30 11/01/17 20:00 14 Mechanical Ventilator 30 11/01/17 20:00 Mechanical Ventilator 11/01/17 19:00 105 16 157/75 (102) 100 11/01/17 18:45 120 22 30 Intake and Output 11/01/17 11/02/17 19:00 07:00 Intake Total 542 ml 1686 ml Output Total 1010 ml 680 ml Balance -468 ml 1006 ml Free Water 120 ml IV Total 367 ml 1136 ml Tube Feeding 175 ml 430 ml Output Urine Total 1010 ml 680 ml Chest Tube Drainage Total 0 ml # Bowel Movements 1 Laboratory Tests 11/02/17 05:11: White Blood Count 13.3H, Red Blood Count 3.52L, Hemoglobin 10.4L, Hematocrit 31.9L, Mean Corpuscular Volume 91, Mean Corpuscular Hemoglobin 29.6, Mean Corpuscular Hemoglobin Concent 32.6, Red Cell Distribution Width 11.3L, Platelet Count 272, Mean Platelet Volume 7.0, Neutrophils (%) (Auto) 83.7H, Lymphocytes (%) (Auto) 9.9L, Monocytes (%) (Auto) 6.2, Eosinophils (%) (Auto) 0.1, Basophils (%) (Auto) 0.2, Sodium Level 144, Potassium Level 2.8L, Chloride Level 111H, Carbon Dioxide Level 24, Anion Gap 9, Blood Urea Nitrogen 17, Creatinine 0.9, Estimat Glomerular Filtration Rate > 60, Glucose Level 131H, Calcium Level 8.6, Total Bilirubin 0.2, Aspartate Amino Transf (AST/SGOT) 69H, Alanine Aminotransferase (ALT/SGPT) 79H, Alkaline Phosphatase 89, Pro-B-Type Natriuretic Peptide 291H, Total Protein 6.3L, Albumin 2.3L, Globulin 4.0, Albumin/Globulin Ratio 0.6L Height (Feet): 5 Height (Inches): 2.00 Weight (Pounds): 108 General Appearance: moderate distress Neck: other - ETT Cardiovascular: normal rate Respiratory/Chest: other - right chest tube Abdomen: normal bowel sounds Objective Current Medications Medications (Trade) Dose Ordered Sig/Yung Route PRN Reason Start Time Stop Time Status Last Admin Dose Admin Acetaminophen (Tylenol) 650 mg Q4H PRN RECTAL Prn Headache/Temp > 101 10/30/17 16:45 11/29/17 16:44 10/31/17 21:24 Albuterol/ Ipratropium (Albuterol/ Ipratropium) 3 ml Q4H PRN HHN Shortness of Breath 10/30/17 08:00 11/04/17 07:59 Ceftriaxone Sodium 1 gm/ Dextrose 55 ml @ 110 mls/hr Q24H IVPB 10/31/17 14:00 11/07/17 13:59 11/02/17 14:00 Chlorhexidine Gluconate (Sunita-Hex 2%) 1 applic DAILY@2000 TOPIC 10/30/17 20:00 11/29/17 19:59 11/01/17 20:06 Clonidine HCl (Catapres Tab) 0.1 mg Q4H PRN ORAL for SBP >160 11/01/17 13:00 12/01/17 12:59 11/02/17 00:38 Dextrose (Dextrose 50%) 25 ml STAT PRN IV Hypoglycemia 10/30/17 08:00 11/29/17 07:59 Dextrose (Dextrose 50%) 50 ml STAT PRN IV Hypoglycemia 10/30/17 08:00 11/29/17 07:59 10/31/17 04:31 Haloperidol Lactate 5 mg/ Dextrose 56 ml @ 112 mls/hr Q1H PRN IVPB Agitation 11/02/17 10:00 12/02/17 09:59 11/02/17 12:53 Heparin Sodium (Porcine) (Heparin 5000 units/ml) 5,000 units EVERY 12 HOURS SUBQ 10/30/17 09:00 11/29/17 08:59 11/02/17 09:05 Hydrocortisone (Solu-CORTEF) 50 mg DAILY IV 11/03/17 09:00 11/30/17 18:29 Levetiracetam 100 ml @ 400 mls/hr Q8H IVPB 10/30/17 17:00 11/29/17 16:59 11/02/17 17:00 Metronidazole 100 ml @ 100 mls/hr Q8H IVPB 10/30/17 11:00 11/06/17 10:59 11/02/17 17:46 Morphine Sulfate (Morphine Sulfate) 4 mg Q4H PRN IVP Severe Pain (Pain Scale 7-10) 10/30/17 08:00 11/06/17 07:59 11/01/17 20:09 Nitroglycerin (Ntg) 0.4 mg Q5M PRN SL Prn Chest Pain 10/30/17 08:00 11/29/17 07:59 Ondansetron HCl (Zofran) 4 mg Q6H PRN IVP Nausea & Vomiting 10/30/17 08:00 11/29/17 07:59 Pantoprazole (Protonix) 40 mg DAILY IVP 11/02/17 09:00 12/02/17 08:59 11/02/17 09:04 Phenytoin 100 mg/ Sodium Chloride 57 ml @ 114 mls/hr [id number] PHENYTOIN IVPB 10/30/17 16:00 11/29/17 15:59 11/02/17 16:11 Sodium Chloride 1,000 ml @ 75 mls/hr [id number] IV 11/01/17 13:00 12/01/17 12:59 11/02/17 16:00 Item Value Date Time Bedside Blood Glucose 101 mg/dl 11/02/17 1600 Bedside Blood Glucose 113 mg/dl 11/02/17 1200 Bedside Blood Glucose 110 mg/dl 11/02/17 0800 Bedside Blood Glucose 125 mg/dl H 11/02/17 0400 Bedside Blood Glucose 126 mg/dl H 11/02/17 0000 Bedside Blood Glucose 120 mg/dl 11/01/171999 Bedside Blood Glucose 109 mg/dl 11/01/17 1600 Salvador Garcia MD Nov 02, 2017 18:32
--- NOTE | 2017-11-02 19:35 | Neurology Progress Note ---
Interim History Interim History Interim History Ms. Robertson is off all sedation. She is in a comatose state. She is exhibiting decerebrate posturing. She has had no seizures or seizure like phenomena. She continues to be artificially ventilated. Review of Systems Neuro Review of Systems Unable to obtain. Objective Physical Exam Last Vital Signs Date Time Temp Pulse Resp B/P (MAP) Pulse Ox O2 Delivery O2 Flow Rate FiO2 11/02/17 19:00 112 14 129/80 (96) 99 11/02/17 17:00 98.9 98.9 11/02/17 16:34 30 11/02/17 16:00 Mechanical Ventilator Laboratory Tests Test 11/02/17 05:11 White Blood Count 13.3 K/UL (4.8-10.8) H Red Blood Count 3.52 M/UL (4.20-5.40) L Hemoglobin 10.4 G/DL (12.0-16.0) L Hematocrit 31.9 % (37.0-47.0) L Mean Corpuscular Volume 91 FL (80-99) Mean Corpuscular Hemoglobin 29.6 PG (27.0-31.0) Mean Corpuscular Hemoglobin Concent 32.6 G/DL (32.0-36.0) Red Cell Distribution Width 11.3 % (11.6-14.8) L Platelet Count 272 K/UL (150-450) Mean Platelet Volume 7.0 FL (6.5-10.1) Neutrophils (%) (Auto) 83.7 % (45.0-75.0) H Lymphocytes (%) (Auto) 9.9 % (20.0-45.0) L Monocytes (%) (Auto) 6.2 % (1.0-10.0) Eosinophils (%) (Auto) 0.1 % (0.0-3.0) Basophils (%) (Auto) 0.2 % (0.0-2.0) Sodium Level 144 MMOL/L (136-145) Potassium Level 2.8 MMOL/L (3.5-5.1) L Chloride Level 111 MMOL/L (98-107) H Carbon Dioxide Level 24 MMOL/L (21-32) Anion Gap 9 mmol/L (5-15) Blood Urea Nitrogen 17 mg/dL (7-18) Creatinine 0.9 MG/DL (0.55-1.30) Estimat Glomerular Filtration Rate > 60 mL/min (>60) Glucose Level 131 MG/DL (74-106) H Calcium Level 8.6 MG/DL (8.5-10.1) Total Bilirubin 0.2 MG/DL (0.2-1.0) Aspartate Amino Transf (AST/SGOT) 69 U/L (15-37) H Alanine Aminotransferase (ALT/SGPT) 79 U/L (12-78) H Alkaline Phosphatase 89 U/L (46-116) Pro-B-Type Natriuretic Peptide 291 pg/mL (0-125) H Total Protein 6.3 G/DL (6.4-8.2) L Albumin 2.3 G/DL (3.4-5.0) L Globulin 4.0 g/dL Albumin/Globulin Ratio 0.6 (1.0-2.7) L Neurologic Exam Objective PHYSICAL EXAMINATION: GENERAL: She is a well-developed, cachectic, lean, black lady, lying in an ICU bed, in no acute distress, connected to a ventilator via an orotracheal tube. HEAD: Normocephalic and atraumatic. EENT: Examination benign. NECK: No neck rigidity was observed. NEUROLOGIC EXAMINATION: MENTAL STATUS EXAMINATION: She was comatose and only responded to deep painful stimuli with decerebration in the upper extremities. Further mental status testing was impossible. SPEECH: Could not be tested. LANGUAGE: Could not be tested. CRANIAL NERVE EXAMINATION: II: She did not blink to threat. III, IV & : The external ocular movements were present on oculocephalic maneuvers. The pupils were 3 mm in diameter and reactive sluggishly to light. V & VII: The corneal reflexes were present, but significantly diminished. VIII: She did not respond to sounds and had no nystagmus. IX & X: The gag reflex was absent on manipulating the endotracheal tube. XI: The sternocleidomastoids and trapezii could not be tested. XII: Could not be tested. MOTOR SYSTEM: The tone was increased in all four extremities with severe spasticity. Examination of muscle mass revealed generalized muscle wasting. Examination of power was impossible to perform because even on applying deep painful stimuli, no purposeful movements were seen. SENSORY EXAMINATION: She responded to deep pain with decerebration. REFLEXES: 1+ and bilaterally symmetrical at the biceps, triceps, brachioradialis , and knees. 0 at both ankles. The plantar responses were extensor bilaterally. COORDINATION, STANCE & GAIT: Could not be tested. Impression/Recommendations Diagnostic Impression 1. Ms. Polly Robertson is a 57-year-old, right-handed, black lady, who does have a past history of polysubstance abuse with her recent drug of choice being cocaine, a seizure disorder, and chronic pain, who was found down in her bathroom at home with vomitus in her mouth. She then was noted to stop breathing and this progressed to cardiac failure. The paramedics were called in and she had to have advanced cardiac life support before she could be resuscitated. She was then transported to the [facility] emergency room and on the way here she was noted to have a generalized seizure. Since then, she has had multiple seizures, however, at this point in time, they are well controlled on the present regimen. 2. She is still sedated with Versed. She has had no seizures or seizure like phenomena. She continues to be artificially ventilated. When her Versed is decreased she bucks the ventilator. 3. On neurological examination, at this time, she is comatose and only responds to deep pain with decerebration. She however does not demonstrate any focal or lateralizing findings. 4. The CT scan of the brain without contrast is benign for acute pathology. 5. Her latest laboratory data on my initial evaluation revealed that her WBC count was elevated to 17,600 with predominantly 79% being neutrophils and 15% being lymphocytes and monocytes. Her arterial blood gas revealed pCO2 low at 21.2, pO2 at 154, and pH of 7.49. Her chemistry panel revealed a creatinine elevated to 1.7. Her AST was elevated at 255, ALT elevated at 251, and alkaline phosphatase elevated at 142. Her albumin was low at 2.9. Her Urinalysis revealed 1+ leukocyte esterase, 20- 30 red blood cells, and 5-10 white blood cells per high-power field. The urine toxicology screen was positive for cocaine. 6. Her EEG done on 10/31/17 revealed a severe encephalopathy and bilateral frontal epileptogenic foci with inter-ictal discharges at time with a large field. 7. The patient's history, neurological examination, laboratory data and imaging studies are most compatible with seizures due to a hypoxic/ischemic cerebral insult and/or cocaine intoxication. 8. The prognosis for recovery of cerebral function is dismal. Recommendations 1. Continue present management. 2. Continue to treat the patient's infectious process vigorously. 3. Continue Dilantin 100 mg intravenously q.8 h. 4. Continue Keppra 1 G intravenously every 8 hours. 5. In light of her poor prognosis make decision regarding intensity of care. Denisse Lester M.D., M.S.P.H. DENISSE LESTER Nov 02, 2017 19:34
[2017-11-02] MEDS: Morphine Sulfate 4mg/ml Inj (IV USE ONLY) IVP PRN (19:40)
[2017-11-02] MEDS: Dyna-Hex 2% Top Sol 2oz TOPIC SCH (19:41)
[2017-11-03] VITALS (24 sets, daily range): BP systolic 121–181; BP diastolic 71–91
[2017-11-03] MEDS: Phenytoin 100 MG in NS 55 ML IVPB SCH ×3 (00:04→16:40)
[2017-11-03] MEDS: levETIRAcetam 1,000mg/NS100ml 100 ML IVPB SCH ×3 (00:31→16:41)
[2017-11-03] MEDS: Morphine Sulfate 4mg/ml Inj (IV USE ONLY) IVP PRN ×3 (05:06→19:05)
[2017-11-03 08:03] LABS: EOSINOPHILS % (AUTO) 0.3 % (0.0-3.0); HEMOGLOBIN 10.8 G/DL (12.0-16.0); MEAN CORPUSCULAR VOLUME 90 FL (80-99); MONOCYTES % (AUTO) 9.1 % (1.0-10.0); NEUTROPHILS % (AUTO) 61.6 % (45.0-75.0); PLATELET COUNT 299 K/UL (150-450); RED BLOOD COUNT 3.64 M/UL (4.20-5.40); RED CELL DISTRIBUTION WIDTH 11.7 % (11.6-14.8); WHITE BLOOD COUNT 12.6 K/UL (4.8-10.8)
[2017-11-03 08:21] LABS: ALANINE AMINOTRANSFERASE 113 U/L (12-78); ALBUMIN 2.4 G/DL (3.4-5.0); ALBUMIN/GLOBULIN RATIO 0.6 (1.0-2.7); ALKALINE PHOSPHATASE 92 U/L (46-116); ASPARTATE AMINO TRANSFERASE 119 U/L (15-37); BILIRUBIN,TOTAL 0.3 MG/DL (0.2-1.0); BLOOD UREA NITROGEN 15 mg/dL (7-18); CALCIUM 8.6 MG/DL (8.5-10.1); CHLORIDE 111 MMOL/L (98-107); CREATININE 0.9 MG/DL (0.55-1.30); PHOSPHORUS 2.7 MG/DL (2.5-4.9); POTASSIUM 2.8 MMOL/L (3.5-5.1); SODIUM 146 MMOL/L (136-145)
[2017-11-03] MEDS: Pantoprazole Inj IVP SCH (08:37)
[2017-11-03] MEDS: Hydrocortisone 100mg Inj IV SCH (08:38)
[2017-11-03] MEDS: Heparin 5000 units/ml inj SUBQ SCH ×3 (08:39→21:20)
--- NOTE | 2017-11-03 09:01 | Diagnostic Imaging Report ---
Indication: Dyspnea Technique: One view of the chest Comparison: 11/02/2017 Findings: Stable satisfactory positions of endotracheal and nasogastric tubes, right subclavian central venous catheter. Right chest vent remains in place. Left shoulder prosthesis again demonstrated. No definite acute infiltrates, effusions, or congestion. The heart size is normal. Impression: Unchanged, over one day, findings as above.
--- NOTE | 2017-11-03 09:45 | Pulmonolgy Critical Care Note ---
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 Discussed with: nurses, 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, 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 eligibility - Objective Last 24 Hour Vital Signs Date Time Temp Pulse Resp B/P (MAP) Pulse Ox O2 Delivery O2 Flow Rate FiO2 11/03/17 08:41 108 14 30 11/03/17 08:38 157/80 11/03/17 08:00 99.8 109 14 157/80 (105) 99 99.8 11/03/17 08:00 30 11/03/17 07:00 102 14 30 11/03/17 07:00 118 15 131/72 (91) 100 11/03/17 06:00 102 14 140/81 (100) 98 11/03/17 05:20 107 14 30 11/03/17 05:00 100 14 133/81 (98) 98 11/03/17 04:00 30 11/03/17 04:00 98.0 102 14 130/82 (98) 98 98.0 11/03/17 04:00 Mechanical Ventilator 11/03/17 04:00 107 11/03/17 03:00 104 14 138/82 (100) 98 11/03/17 02:55 104 14 30 11/03/17 02:00 95 14 123/76 (92) 99 11/03/17 01:00 97 14 127/80 (96) 99 11/03/17 00:49 98 14 30 11/03/17 00:12 167/91 11/03/17 00:00 102 11/03/17 00:00 99.2 91 14 167/91 (116) 99 99.2 11/03/17 00:00 Mechanical Ventilator 11/03/17 00:00 30 11/02/17 23:15 91 14 30 11/02/17 23:00 91 14 177/119 (138) 99 11/02/17 22:00 95 14 123/74 (90) 99 11/02/17 21:12 96 14 30 11/02/17 21:00 112 14 149/82 (104) 99 11/02/17 20:00 30 11/02/17 20:00 105 11/02/17 20:00 Mechanical Ventilator 11/02/17 20:00 99.0 112 14 142/79 (100) 99 99.0 11/02/17 19:20 116 21 30 11/02/17 19:00 112 14 129/80 (96) 99 11/02/17 18:00 108 14 149/86 (107) 99 11/02/17 17:00 98.9 100 14 140/78 (98) 99 98.9 11/02/17 16:34 131 24 30 11/02/17 16:00 110 14 139/77 (97) 99 11/02/17 16:00 30 11/02/17 16:00 Mechanical Ventilator 11/02/17 16:00 111 11/02/17 15:00 115 15 30 11/02/17 15:00 107 14 136/83 (100) 99 11/02/17 14:00 101 14 140/92 (108) 99 11/02/17 13:00 98.9 100 14 147/78 (101) 99 98.9 11/02/17 12:59 115 15 30 11/02/17 12:00 113 11/02/17 12:00 30 11/02/17 12:00 113 14 156/92 (113) 99 11/02/17 12:00 Mechanical Ventilator 11/02/17 11:10 98 14 30 11/02/17 11:00 107 14 165/80 (108) 99 11/02/17 10:00 117 14 144/69 (94) 99 Status: awake Condition: grave Neck: full ROM Lungs: clear Heart: HR/BP stable, regular Abdomen: non-tender Extremities: edema Decubiti: location Micro: Microbiology Date/Time Source Procedure Growth Status 10/31/17 16:10 Indwelling Cath Urine Culture - Final NO GROWTH AFTER 48 HOURS Complete Accucheck: 118 Critical Care - Subjective ROS Limited/Unobtainable: Yes Condition: critical FI02: 30 Vent Support Breath Rate: 14 Vent Support Mode: AC Vent Tidal Volume: 600 Sputum Amount: Moderate PIP: 17 Tube Feeding Amount: 45 I&O: Intake and Output 11/02/17 11/03/17 19:00 07:00 Intake Total 2050 ml 1582 ml Output Total 1100 ml 740 ml Balance 950 ml 842 ml Free Water 60 ml IV Total 1525 ml 982 ml Tube Feeding 525 ml 540 ml Output Urine Total 1100 ml 740 ml # Bowel Movements 2 ET-Tube: 7.5 ET Position: 23 Labs: Laboratory Tests Test 11/03/17 07:30 11/03/17 08:00 White Blood Count 12.6 K/UL (4.8-10.8) H Red Blood Count 3.64 M/UL (4.20-5.40) L Hemoglobin 10.8 G/DL (12.0-16.0) L Hematocrit 33.0 % (37.0-47.0) L Mean Corpuscular Volume 90 FL (80-99) Mean Corpuscular Hemoglobin 29.6 PG (27.0-31.0) Mean Corpuscular Hemoglobin Concent 32.7 G/DL (32.0-36.0) Red Cell Distribution Width 11.7 % (11.6-14.8) Platelet Count 299 K/UL (150-450) Mean Platelet Volume 6.8 FL (6.5-10.1) Neutrophils (%) (Auto) 61.6 % (45.0-75.0) Lymphocytes (%) (Auto) 28.0 % (20.0-45.0) Monocytes (%) (Auto) 9.1 % (1.0-10.0) Eosinophils (%) (Auto) 0.3 % (0.0-3.0) Basophils (%) (Auto) 1.0 % (0.0-2.0) Sodium Level 146 MMOL/L (136-145) H Potassium Level 2.8 MMOL/L (3.5-5.1) L Chloride Level 111 MMOL/L (98-107) H Carbon Dioxide Level Pending Blood Urea Nitrogen 15 mg/dL (7-18) Creatinine 0.9 MG/DL (0.55-1.30) Estimat Glomerular Filtration Rate > 60 mL/min (>60) Glucose Level 101 MG/DL (74-106) Calcium Level 8.6 MG/DL (8.5-10.1) Phosphorus Level 2.7 MG/DL (2.5-4.9) Magnesium Level 1.7 MG/DL (1.8-2.4) L Total Bilirubin 0.3 MG/DL (0.2-1.0) Aspartate Amino Transf (AST/SGOT) 119 U/L (15-37) H Alanine Aminotransferase (ALT/SGPT) 113 U/L (12-78) H Alkaline Phosphatase 92 U/L (46-116) Total Protein 6.5 G/DL (6.4-8.2) Albumin 2.4 G/DL (3.4-5.0) L Globulin 4.1 g/dL Albumin/Globulin Ratio 0.6 (1.0-2.7) L Arterial Blood pH 7.480 (7.350-7.450) Arterial Blood Partial Pressure CO2 30.4 mmHg (35.0-45.0) L Arterial Blood Partial Pressure O2 101.7 mmHg (75.0-100.0) H Arterial Blood HCO3 22.3 mmol/L (22.0-26.0) Arterial Blood Oxygen Saturation 97.4 % (92.0-98.0) Arterial Blood Base Excess -0.5 Aj Test Positive Evan Purcell MD Nov 03, 2017 09:45
--- NOTE | 2017-11-03 10:18 | Infectious Diseases Prog Note ---
Assessment/Plan Assessment/Plan 57 yo female who presented to the ED on 10/30/17 after pulmonary arrest. Sepsis - Probable Asp PNA and UTI On Abx f/u Sputum Cultures - Predominantly NF - +1 Steno Will hold off Tx of Steno as patient improving f/u Urine Cx Leukocytosis - WBCs 16 after seizure No Fevers Seizures - Had Seizure on route to ED 10/30/17 and in the ICU as well Drug abuse - Pos for cocaine Arthritis Chronic pain. P: Continue Ceftriaxone #3 and Flagyl #4 for asp PNA and UTI Ceftriaxone has good Gp and Gn coverage. She was given a dose in the ED and had no adverse reaction. 10/31 Vancomycin #1 10/31 Aztreonam 10/30 SP Ceftriaxone Monitor CBC and Temps Vent management per pulm Poor prognosis We will continue to follow the patient during this hospitalization. Subjective Allergies: Coded Allergies: ASPIRIN (Verified Allergy, Unknown, 10/30/17) PENICILLINS (Verified Allergy, Unknown, 10/30/17) UNABLE TO ASSESS (Unverified , 10/29/17) Subjective Patient intubated and non-responsive off sedations Afebrile On 30% FiO2 Objective Vital Signs Last 24 Hour Vital Signs Date Time Temp Pulse Resp B/P (MAP) Pulse Ox O2 Delivery O2 Flow Rate FiO2 11/03/17 08:41 108 14 30 11/03/17 08:38 157/80 11/03/17 08:00 99.8 109 14 157/80 (105) 99 99.8 11/03/17 08:00 30 11/03/17 07:00 102 14 30 11/03/17 07:00 118 15 131/72 (91) 100 11/03/17 06:00 102 14 140/81 (100) 98 11/03/17 05:20 107 14 30 11/03/17 05:00 100 14 133/81 (98) 98 11/03/17 04:00 30 11/03/17 04:00 98.0 102 14 130/82 (98) 98 98.0 11/03/17 04:00 Mechanical Ventilator 11/03/17 04:00 107 11/03/17 03:00 104 14 138/82 (100) 98 11/03/17 02:55 104 14 30 11/03/17 02:00 95 14 123/76 (92) 99 11/03/17 01:00 97 14 127/80 (96) 99 11/03/17 00:49 98 14 30 11/03/17 00:12 167/91 11/03/17 00:00 102 11/03/17 00:00 99.2 91 14 167/91 (116) 99 99.2 11/03/17 00:00 Mechanical Ventilator 11/03/17 00:00 30 11/02/17 23:15 91 14 30 11/02/17 23:00 91 14 177/119 (138) 99 11/02/17 22:00 95 14 123/74 (90) 99 11/02/17 21:12 96 14 30 11/02/17 21:00 112 14 149/82 (104) 99 11/02/17 20:00 30 11/02/17 20:00 105 11/02/17 20:00 Mechanical Ventilator 11/02/17 20:00 99.0 112 14 142/79 (100) 99 99.0 11/02/17 19:20 116 21 30 11/02/17 19:00 112 14 129/80 (96) 99 11/02/17 18:00 108 14 149/86 (107) 99 11/02/17 17:00 98.9 100 14 140/78 (98) 99 98.9 11/02/17 16:34 131 24 30 11/02/17 16:00 110 14 139/77 (97) 99 11/02/17 16:00 30 11/02/17 16:00 Mechanical Ventilator 11/02/17 16:00 111 11/02/17 15:00 115 15 30 11/02/17 15:00 107 14 136/83 (100) 99 11/02/17 14:00 101 14 140/92 (108) 99 11/02/17 13:00 98.9 100 14 147/78 (101) 99 98.9 11/02/17 12:59 115 15 30 11/02/17 12:00 113 11/02/17 12:00 30 11/02/17 12:00 113 14 156/92 (113) 99 11/02/17 12:00 Mechanical Ventilator 11/02/17 11:10 98 14 30 11/02/17 11:00 107 14 165/80 (108) 99 Height (Feet): 5 Height (Inches): 2.00 Weight (Pounds): 104 Objective Gen: NAD, intubated on Vent 30% O2 HEENT: NCAT, MMM, No observed pupillary constriction to light. No Oral lesion, no scleral icterus, Missing multiple teeth LUNGS: Mechanical breath sounds CARDS: RRR, S1, S2, No M/R/G, ABD: Soft, NT, ND, No R/G, + BS Ext: C/C/E, Pulses 2+ B/L (DP, Rad): NEURO: Not responsive off sedation Microbiology Date/Time Source Procedure Growth Status 10/31/17 16:10 Indwelling Cath Urine Culture - Final NO GROWTH AFTER 48 HOURS Complete Laboratory Tests Test 11/03/17 07:30 11/03/17 08:00 White Blood Count 12.6 K/UL (4.8-10.8) H Red Blood Count 3.64 M/UL (4.20-5.40) L Hemoglobin 10.8 G/DL (12.0-16.0) L Hematocrit 33.0 % (37.0-47.0) L Mean Corpuscular Volume 90 FL (80-99) Mean Corpuscular Hemoglobin 29.6 PG (27.0-31.0) Mean Corpuscular Hemoglobin Concent 32.7 G/DL (32.0-36.0) Red Cell Distribution Width 11.7 % (11.6-14.8) Platelet Count 299 K/UL (150-450) Mean Platelet Volume 6.8 FL (6.5-10.1) Neutrophils (%) (Auto) 61.6 % (45.0-75.0) Lymphocytes (%) (Auto) 28.0 % (20.0-45.0) Monocytes (%) (Auto) 9.1 % (1.0-10.0) Eosinophils (%) (Auto) 0.3 % (0.0-3.0) Basophils (%) (Auto) 1.0 % (0.0-2.0) Sodium Level 146 MMOL/L (136-145) H Potassium Level 2.8 MMOL/L (3.5-5.1) L Chloride Level 111 MMOL/L (98-107) H Carbon Dioxide Level Pending Blood Urea Nitrogen 15 mg/dL (7-18) Creatinine 0.9 MG/DL (0.55-1.30) Estimat Glomerular Filtration Rate > 60 mL/min (>60) Glucose Level 101 MG/DL (74-106) Calcium Level 8.6 MG/DL (8.5-10.1) Phosphorus Level 2.7 MG/DL (2.5-4.9) Magnesium Level 1.7 MG/DL (1.8-2.4) L Total Bilirubin 0.3 MG/DL (0.2-1.0) Aspartate Amino Transf (AST/SGOT) 119 U/L (15-37) H Alanine Aminotransferase (ALT/SGPT) 113 U/L (12-78) H Alkaline Phosphatase 92 U/L (46-116) Total Protein 6.5 G/DL (6.4-8.2) Albumin 2.4 G/DL (3.4-5.0) L Globulin 4.1 g/dL Albumin/Globulin Ratio 0.6 (1.0-2.7) L Arterial Blood pH 7.480 (7.350-7.450) Arterial Blood Partial Pressure CO2 30.4 mmHg (35.0-45.0) L Arterial Blood Partial Pressure O2 101.7 mmHg (75.0-100.0) H Arterial Blood HCO3 22.3 mmol/L (22.0-26.0) Arterial Blood Oxygen Saturation 97.4 % (92.0-98.0) Arterial Blood Base Excess -0.5 Aj Test Positive Current Medications Medications (Trade) Dose Ordered Sig/Yung Route PRN Reason Start Time Stop Time Status Last Admin Dose Admin Acetaminophen (Tylenol) 650 mg Q4H PRN RECTAL Prn Headache/Temp > 101 10/30/17 16:45 11/29/17 16:44 10/31/17 21:24 Albuterol/ Ipratropium (Albuterol/ Ipratropium) 3 ml Q4H PRN HHN Shortness of Breath 10/30/17 08:00 11/04/17 07:59 Ceftriaxone Sodium 1 gm/ Dextrose 55 ml @ 110 mls/hr Q24H IVPB 10/31/17 14:00 11/07/17 13:59 11/02/17 14:00 Chlorhexidine Gluconate (Sunita-Hex 2%) 1 applic DAILY@2000 TOPIC 10/30/17 20:00 11/29/17 19:59 11/02/17 19:41 Clonidine HCl (Catapres Tab) 0.1 mg Q4H PRN ORAL for SBP >160 11/01/17 13:00 12/01/17 12:59 11/03/17 08:38 Dextrose (Dextrose 50%) 25 ml STAT PRN IV Hypoglycemia 10/30/17 08:00 11/29/17 07:59 Dextrose (Dextrose 50%) 50 ml STAT PRN IV Hypoglycemia 10/30/17 08:00 11/29/17 07:59 10/31/17 04:31 Haloperidol Lactate 5 mg/ Dextrose 56 ml @ 112 mls/hr Q1H PRN IVPB Agitation 11/02/17 10:00 12/02/17 09:59 11/02/17 12:53 Heparin Sodium (Porcine) (Heparin 5000 units/ml) 5,000 units EVERY 12 HOURS SUBQ 10/30/17 09:00 11/29/17 08:59 11/03/17 08:39 Hydrocortisone (Solu-CORTEF) 50 mg DAILY IV 11/03/17 09:00 11/30/17 18:29 11/03/17 08:38 Levetiracetam 100 ml @ 400 mls/hr Q8H IVPB 10/30/17 17:00 11/29/17 16:59 11/03/17 08:47 Magnesium Sulfate 100 ml @ 100 mls/hr Q1H IVPB 11/03/17 12:45 11/03/17 14:44 Metronidazole 100 ml @ 100 mls/hr Q8H IVPB 10/30/17 11:00 11/06/17 10:59 11/03/17 02:45 Morphine Sulfate (Morphine Sulfate) 4 mg Q4H PRN IVP Severe Pain (Pain Scale 7-10) 10/30/17 08:00 11/06/17 07:59 11/03/17 05:06 Nitroglycerin (Ntg) 0.4 mg Q5M PRN SL Prn Chest Pain 10/30/17 08:00 11/29/17 07:59 Ondansetron HCl (Zofran) 4 mg Q6H PRN IVP Nausea & Vomiting 10/30/17 08:00 11/29/17 07:59 Pantoprazole (Protonix) 40 mg DAILY IVP 11/02/17 09:00 12/02/17 08:59 11/03/17 08:37 Phenytoin 100 mg/ Sodium Chloride 57 ml @ 114 mls/hr [id number] PHENYTOIN IVPB 10/30/17 16:00 11/29/17 15:59 11/03/17 08:46 Sodium Chloride 1,000 ml @ 75 mls/hr [id number] IV 11/01/17 13:00 12/01/17 12:59 11/03/17 05:13 Sodium Phosphate 30 mm/Sodium Chloride 285 ml @ 47.5 mls/hr ONCE IV 11/03/17 12:45 11/03/17 18:45 Gutierrez Sifuentes MD Nov 03, 2017 10:18
[2017-11-03 10:54] LABS: CARBON DIOXIDE 24 MMOL/L (21-32)
[2017-11-03 10:55] LABS: ANION GAP 11 mmol/L (5-15)
--- NOTE | 2017-11-03 12:39 | General Progress Note ---
Progress Note Progress Note Surgery CXR stable on water seal right thorvent removed AM CXR Ho Man Nov 03, 2017 12:39
[2017-11-03] MEDS ORDERED: Sodium Phosphate 30 MM in NS 275 ML IV SCH (12:45)
--- NOTE | 2017-11-03 12:48 | Nephrology Progress Note ---
Assessment/Plan Assessment 1. Acute renal failure. . 2. Chronic kidney disease 3. Aspiration pneumonia. 4. hypernatremia 5. hypokalemia 6. Shock liver. 7. Acute respiratory failure. Plan plan continue ivf check mg change ivf to [id number] replace k monitoring renal function and urine out put avoid NSAID Subjective Subjective continue to be in icu setting intubated Objective Objective Last 24 Hour Vital Signs Date Time Temp Pulse Resp B/P (MAP) Pulse Ox O2 Delivery O2 Flow Rate FiO2 11/03/17 11:28 108 14 30 11/03/17 11:00 99 14 142/71 (94) 98 11/03/17 10:00 101 14 142/71 (94) 99 11/03/17 09:00 107 15 141/73 (95) 98 11/03/17 08:41 108 14 30 11/03/17 08:38 157/80 11/03/17 08:00 99.8 109 14 157/80 (105) 99 99.8 11/03/17 08:00 Mechanical Ventilator 11/03/17 08:00 100 11/03/17 08:00 30 11/03/17 07:00 102 14 30 11/03/17 07:00 118 15 131/72 (91) 100 11/03/17 06:00 102 14 140/81 (100) 98 11/03/17 05:20 107 14 30 11/03/17 05:00 100 14 133/81 (98) 98 11/03/17 04:00 30 11/03/17 04:00 98.0 102 14 130/82 (98) 98 98.0 11/03/17 04:00 Mechanical Ventilator 11/03/17 04:00 107 11/03/17 03:00 104 14 138/82 (100) 98 11/03/17 02:55 104 14 30 11/03/17 02:00 95 14 123/76 (92) 99 11/03/17 01:00 97 14 127/80 (96) 99 11/03/17 00:49 98 14 30 11/03/17 00:12 167/91 11/03/17 00:00 102 11/03/17 00:00 99.2 91 14 167/91 (116) 99 99.2 11/03/17 00:00 Mechanical Ventilator 11/03/17 00:00 30 11/02/17 23:15 91 14 30 11/02/17 23:00 91 14 177/119 (138) 99 11/02/17 22:00 95 14 123/74 (90) 99 11/02/17 21:12 96 14 30 11/02/17 21:00 112 14 149/82 (104) 99 11/02/17 20:00 30 11/02/17 20:00 105 11/02/17 20:00 Mechanical Ventilator 11/02/17 20:00 99.0 112 14 142/79 (100) 99 99.0 11/02/17 19:20 116 21 30 11/02/17 19:00 112 14 129/80 (96) 99 11/02/17 18:00 108 14 149/86 (107) 99 11/02/17 17:00 98.9 100 14 140/78 (98) 99 98.9 11/02/17 16:34 131 24 30 11/02/17 16:00 110 14 139/77 (97) 99 11/02/17 16:00 30 11/02/17 16:00 Mechanical Ventilator 11/02/17 16:00 111 11/02/17 15:00 115 15 30 11/02/17 15:00 107 14 136/83 (100) 99 11/02/17 14:00 101 14 140/92 (108) 99 11/02/17 13:00 98.9 100 14 147/78 (101) 99 98.9 11/02/17 12:59 115 15 30 Intake and Output 11/02/17 11/03/17 19:00 07:00 Intake Total 2050 ml 1582 ml Output Total 1100 ml 740 ml Balance 950 ml 842 ml Free Water 60 ml IV Total 1525 ml 982 ml Tube Feeding 525 ml 540 ml Output Urine Total 1100 ml 740 ml # Bowel Movements 2 Laboratory Tests 11/03/17 07:30: White Blood Count 12.6H, Red Blood Count 3.64L, Hemoglobin 10.8L, Hematocrit 33.0L, Mean Corpuscular Volume 90, Mean Corpuscular Hemoglobin 29.6, Mean Corpuscular Hemoglobin Concent 32.7, Red Cell Distribution Width 11.7, Platelet Count 299, Mean Platelet Volume 6.8, Neutrophils (%) (Auto) 61.6, Lymphocytes (% ) (Auto) 28.0, Monocytes (%) (Auto) 9.1, Eosinophils (%) (Auto) 0.3, Basophils ( %) (Auto) 1.0, Sodium Level 146H, Potassium Level 2.8L, Chloride Level 111H, Carbon Dioxide Level 24, Anion Gap 11, Blood Urea Nitrogen 15, Creatinine 0.9, Estimat Glomerular Filtration Rate > 60, Glucose Level 101, Calcium Level 8.6, Phosphorus Level 2.7, Magnesium Level 1.7L, Total Bilirubin 0.3, Aspartate Amino Transf (AST/SGOT) 119H, Alanine Aminotransferase (ALT/SGPT) 113H, Alkaline Phosphatase 92, Total Protein 6.5, Albumin 2.4L, Globulin 4.1, Albumin/ Globulin Ratio 0.6L 11/03/17 08:00: Arterial Blood pH 7.480H, Arterial Blood Partial Pressure CO2 30.4L, Arterial Blood Partial Pressure O2 101.7H, Arterial Blood HCO3 22.3, Arterial Blood Oxygen Saturation 97.4, Arterial Blood Base Excess -0.5, Aj Test Positive Height (Feet): 5 Height (Inches): 2.00 Weight (Pounds): 104 Objective HEAD AND NECK: No JVP. No LAD. No thyromegaly. Extraocular movement intact. Pupils are reactive to light and accommodation. LUNGS: Decreased breathing sounds on the right. Apparently, the patient received IJ placement this morning and later on patient developed a pneumothorax on the right side. ABDOMEN: Soft, nontender, and nondistended. EXTREMITIES: No edema. No clubbing. No cyanosis. The patient has Stefani Shabazz MD Nov 03, 2017 12:48
--- NOTE | 2017-11-03 13:16 | General Progress Note ---
Assessment/Plan Problem List: (1) Renal insufficiency ICD Codes: N28.9 - Disorder of kidney and ureter, unspecified SNOMED: 026872719, 115083426 (2) UTI (urinary tract infection) ICD Codes: N39.0 - Urinary tract infection, site not specified SNOMED: 34375215 (3) Seizure ICD Codes: R56.9 - Unspecified convulsions SNOMED: 14687753 (4) HTN (hypertension) ICD Codes: I10 - Essential (primary) hypertension SNOMED: 52853796 (5) Diabetes ICD Codes: E11.9 - Type 2 diabetes mellitus without complications SNOMED: 98136963 Status: unchanged Assessment/Plan vent abx detox neph f/u cbc bmp am Subjective Constitutional: Reports: weakness Allergies: Coded Allergies: ASPIRIN (Verified Allergy, Unknown, 10/30/17) PENICILLINS (Verified Allergy, Unknown, 10/30/17) UNABLE TO ASSESS (Unverified , 10/29/17) All Systems: reviewed and negative except above Subjective intubated sedated in icu Objective Last 24 Hour Vital Signs Date Time Temp Pulse Resp B/P (MAP) Pulse Ox O2 Delivery O2 Flow Rate FiO2 11/03/17 11:28 108 14 30 11/03/17 11:00 99 14 142/71 (94) 98 11/03/17 10:00 101 14 142/71 (94) 99 11/03/17 09:00 107 15 141/73 (95) 98 11/03/17 08:41 108 14 30 11/03/17 08:38 157/80 11/03/17 08:00 99.8 109 14 157/80 (105) 99 99.8 11/03/17 08:00 Mechanical Ventilator 11/03/17 08:00 100 11/03/17 08:00 30 11/03/17 07:00 102 14 30 11/03/17 07:00 118 15 131/72 (91) 100 11/03/17 06:00 102 14 140/81 (100) 98 11/03/17 05:20 107 14 30 11/03/17 05:00 100 14 133/81 (98) 98 11/03/17 04:00 30 11/03/17 04:00 98.0 102 14 130/82 (98) 98 98.0 11/03/17 04:00 Mechanical Ventilator 11/03/17 04:00 107 11/03/17 03:00 104 14 138/82 (100) 98 11/03/17 02:55 104 14 30 11/03/17 02:00 95 14 123/76 (92) 99 11/03/17 01:00 97 14 127/80 (96) 99 11/03/17 00:49 98 14 30 11/03/17 00:12 167/91 11/03/17 00:00 102 11/03/17 00:00 99.2 91 14 167/91 (116) 99 99.2 11/03/17 00:00 Mechanical Ventilator 11/03/17 00:00 30 11/02/17 23:15 91 14 30 11/02/17 23:00 91 14 177/119 (138) 99 11/02/17 22:00 95 14 123/74 (90) 99 11/02/17 21:12 96 14 30 11/02/17 21:00 112 14 149/82 (104) 99 11/02/17 20:00 30 11/02/17 20:00 105 11/02/17 20:00 Mechanical Ventilator 11/02/17 20:00 99.0 112 14 142/79 (100) 99 99.0 11/02/17 19:20 116 21 30 11/02/17 19:00 112 14 129/80 (96) 99 11/02/17 18:00 108 14 149/86 (107) 99 11/02/17 17:00 98.9 100 14 140/78 (98) 99 98.9 11/02/17 16:34 131 24 30 11/02/17 16:00 110 14 139/77 (97) 99 11/02/17 16:00 30 11/02/17 16:00 Mechanical Ventilator 11/02/17 16:00 111 11/02/17 15:00 115 15 30 11/02/17 15:00 107 14 136/83 (100) 99 11/02/17 14:00 101 14 140/92 (108) 99 Intake and Output 11/02/17 11/03/17 19:00 07:00 Intake Total 2050 ml 1582 ml Output Total 1100 ml 740 ml Balance 950 ml 842 ml Free Water 60 ml IV Total 1525 ml 982 ml Tube Feeding 525 ml 540 ml Output Urine Total 1100 ml 740 ml # Bowel Movements 2 Laboratory Tests 11/03/17 07:30: White Blood Count 12.6H, Red Blood Count 3.64L, Hemoglobin 10.8L, Hematocrit 33.0L, Mean Corpuscular Volume 90, Mean Corpuscular Hemoglobin 29.6, Mean Corpuscular Hemoglobin Concent 32.7, Red Cell Distribution Width 11.7, Platelet Count 299, Mean Platelet Volume 6.8, Neutrophils (%) (Auto) 61.6, Lymphocytes (% ) (Auto) 28.0, Monocytes (%) (Auto) 9.1, Eosinophils (%) (Auto) 0.3, Basophils ( %) (Auto) 1.0, Sodium Level 146H, Potassium Level 2.8L, Chloride Level 111H, Carbon Dioxide Level 24, Anion Gap 11, Blood Urea Nitrogen 15, Creatinine 0.9, Estimat Glomerular Filtration Rate > 60, Glucose Level 101, Calcium Level 8.6, Phosphorus Level 2.7, Magnesium Level 1.7L, Total Bilirubin 0.3, Aspartate Amino Transf (AST/SGOT) 119H, Alanine Aminotransferase (ALT/SGPT) 113H, Alkaline Phosphatase 92, Total Protein 6.5, Albumin 2.4L, Globulin 4.1, Albumin/ Globulin Ratio 0.6L 11/03/17 08:00: Arterial Blood pH 7.480H, Arterial Blood Partial Pressure CO2 30.4L, Arterial Blood Partial Pressure O2 101.7H, Arterial Blood HCO3 22.3, Arterial Blood Oxygen Saturation 97.4, Arterial Blood Base Excess -0.5, Aj Test Positive Height (Feet): 5 Height (Inches): 2.00 Weight (Pounds): 104 General Appearance: lethargic EENT: normal ENT inspection Neck: normal alignment Cardiovascular: normal peripheral pulses, normal rate, regular rhythm Respiratory/Chest: chest wall non-tender, lungs clear, normal breath sounds Abdomen: normal bowel sounds, non tender, soft Extremities: normal inspection Edema: no edema noted Arm (L), no edema noted Arm (R), no edema noted Leg (L), no edema noted Leg (R), no edema noted Pedal (L), no edema noted Pedal (R), no edema noted Generalized Neurologic: motor weakness Skin: normal pigmentation, warm/dry Josias Skinner DO Nov 03, 2017 13:16
--- NOTE | 2017-11-03 14:34 | GI Progress Note ---
Assessment/Plan Problems: (1) Diabetes ICD Codes: E11.9 - Type 2 diabetes mellitus without complications SNOMED: 59549079 (2) Cocaine abuse ICD Codes: F14.10 - Cocaine abuse, uncomplicated SNOMED: 69819128 (3) Transaminitis ICD Codes: R74.0 - Nonspecific elevation of levels of transaminase and lactic acid dehydrogenase [LDH] SNOMED: 001137401, 512192465 (4) Anemia ICD Codes: D64.9 - Anemia, unspecified SNOMED: 611161835 Status: unchanged Status Narrative Discussed with Dr. Sauceda. Assessment/Plan shocked liver supportive care electrolyte replacement OTFs per RD on Dilantin, can affect liver function trend LFTs ppi fu labs, iron panel OB stool The patient was seen and examined at bedside and all new and available data was reviewed in the patients chart. I agree with the above findings, impression and plan. (Patient seen earlier today. Signature stamp does not reflect patient encounter time.). - Renaldo Sauceda MD Subjective Subjective limited Objective Last 24 Hour Vital Signs Date Time Temp Pulse Resp B/P (MAP) Pulse Ox O2 Delivery O2 Flow Rate FiO2 11/03/17 14:13 181/85 11/03/17 11:28 108 14 30 11/03/17 11:00 99 14 142/71 (94) 98 11/03/17 10:00 101 14 142/71 (94) 99 11/03/17 09:00 107 15 141/73 (95) 98 11/03/17 08:41 108 14 30 11/03/17 08:38 157/80 11/03/17 08:00 99.8 109 14 157/80 (105) 99 99.8 11/03/17 08:00 Mechanical Ventilator 11/03/17 08:00 100 11/03/17 08:00 30 11/03/17 07:00 102 14 30 11/03/17 07:00 118 15 131/72 (91) 100 11/03/17 06:00 102 14 140/81 (100) 98 11/03/17 05:20 107 14 30 11/03/17 05:00 100 14 133/81 (98) 98 11/03/17 04:00 30 11/03/17 04:00 98.0 102 14 130/82 (98) 98 98.0 11/03/17 04:00 Mechanical Ventilator 11/03/17 04:00 107 11/03/17 03:00 104 14 138/82 (100) 98 11/03/17 02:55 104 14 30 11/03/17 02:00 95 14 123/76 (92) 99 11/03/17 01:00 97 14 127/80 (96) 99 11/03/17 00:49 98 14 30 11/03/17 00:12 167/91 11/03/17 00:00 102 11/03/17 00:00 99.2 91 14 167/91 (116) 99 99.2 11/03/17 00:00 Mechanical Ventilator 11/03/17 00:00 30 11/02/17 23:15 91 14 30 11/02/17 23:00 91 14 177/119 (138) 99 11/02/17 22:00 95 14 123/74 (90) 99 11/02/17 21:12 96 14 30 11/02/17 21:00 112 14 149/82 (104) 99 11/02/17 20:00 30 11/02/17 20:00 105 11/02/17 20:00 Mechanical Ventilator 11/02/17 20:00 99.0 112 14 142/79 (100) 99 99.0 11/02/17 19:20 116 21 30 11/02/17 19:00 112 14 129/80 (96) 99 11/02/17 18:00 108 14 149/86 (107) 99 11/02/17 17:00 98.9 100 14 140/78 (98) 99 98.9 11/02/17 16:34 131 24 30 11/02/17 16:00 110 14 139/77 (97) 99 11/02/17 16:00 30 11/02/17 16:00 Mechanical Ventilator 11/02/17 16:00 111 11/02/17 15:00 115 15 30 11/02/17 15:00 107 14 136/83 (100) 99 Intake and Output 11/02/17 11/03/17 19:00 07:00 Intake Total 2050 ml 1582 ml Output Total 1100 ml 740 ml Balance 950 ml 842 ml Free Water 60 ml IV Total 1525 ml 982 ml Tube Feeding 525 ml 540 ml Output Urine Total 1100 ml 740 ml # Bowel Movements 2 Laboratory Tests Test 11/03/17 07:30 11/03/17 08:00 White Blood Count 12.6 K/UL (4.8-10.8) H Red Blood Count 3.64 M/UL (4.20-5.40) L Hemoglobin 10.8 G/DL (12.0-16.0) L Hematocrit 33.0 % (37.0-47.0) L Mean Corpuscular Volume 90 FL (80-99) Mean Corpuscular Hemoglobin 29.6 PG (27.0-31.0) Mean Corpuscular Hemoglobin Concent 32.7 G/DL (32.0-36.0) Red Cell Distribution Width 11.7 % (11.6-14.8) Platelet Count 299 K/UL (150-450) Mean Platelet Volume 6.8 FL (6.5-10.1) Neutrophils (%) (Auto) 61.6 % (45.0-75.0) Lymphocytes (%) (Auto) 28.0 % (20.0-45.0) Monocytes (%) (Auto) 9.1 % (1.0-10.0) Eosinophils (%) (Auto) 0.3 % (0.0-3.0) Basophils (%) (Auto) 1.0 % (0.0-2.0) Sodium Level 146 MMOL/L (136-145) H Potassium Level 2.8 MMOL/L (3.5-5.1) L Chloride Level 111 MMOL/L (98-107) H Carbon Dioxide Level 24 MMOL/L (21-32) Anion Gap 11 mmol/L (5-15) Blood Urea Nitrogen 15 mg/dL (7-18) Creatinine 0.9 MG/DL (0.55-1.30) Estimat Glomerular Filtration Rate > 60 mL/min (>60) Glucose Level 101 MG/DL (74-106) Calcium Level 8.6 MG/DL (8.5-10.1) Phosphorus Level 2.7 MG/DL (2.5-4.9) Magnesium Level 1.7 MG/DL (1.8-2.4) L Total Bilirubin 0.3 MG/DL (0.2-1.0) Aspartate Amino Transf (AST/SGOT) 119 U/L (15-37) H Alanine Aminotransferase (ALT/SGPT) 113 U/L (12-78) H Alkaline Phosphatase 92 U/L (46-116) Total Protein 6.5 G/DL (6.4-8.2) Albumin 2.4 G/DL (3.4-5.0) L Globulin 4.1 g/dL Albumin/Globulin Ratio 0.6 (1.0-2.7) L Arterial Blood pH 7.480 (7.350-7.450) Arterial Blood Partial Pressure CO2 30.4 mmHg (35.0-45.0) L Arterial Blood Partial Pressure O2 101.7 mmHg (75.0-100.0) H Arterial Blood HCO3 22.3 mmol/L (22.0-26.0) Arterial Blood Oxygen Saturation 97.4 % (92.0-98.0) Arterial Blood Base Excess -0.5 Aj Test Positive Height (Feet): 5 Height (Inches): 2.00 Weight (Pounds): 104 General Appearance: no apparent distress, thin Cardiovascular: normal rate Respiratory/Chest: normal breath sounds, no respiratory distress, other - intubated Abdominal Exam: normal bowel sounds, non tender, soft Extremities: non-tender Risa Davenport NP Nov 03, 2017 14:34
[2017-11-03] MEDS: cefTRIAXone 1 GM in D5W 55 ML IVPB SCH (14:58)
[2017-11-03] MEDS ORDERED: Succinylcholine 20mg/ml 10ml vial ONE (15:57)
[2017-11-03] MEDS ORDERED: Etomidate 40mg/20ml Inj IV ONE (15:57)
--- NOTE | 2017-11-03 18:16 | Neurology Progress Note ---
Interim History Interim History Interim History Ms. Robertson continues to be in a comatose state. She does however exhibit spontaneous eye opening and closing. She is still exhibiting decerebrate posturing. She has had no seizures or seizure like phenomena. She continues to be artificially ventilated. There has been no improvement in her neurologic state. Review of Systems Neuro Review of Systems Unable to obtain. Objective Physical Exam Last Vital Signs Date Time Temp Pulse Resp B/P (MAP) Pulse Ox O2 Delivery O2 Flow Rate FiO2 11/03/17 17:12 109 15 30 11/03/17 17:00 170/84 (112) 99 11/03/17 16:00 98.4 98.4 11/03/17 16:00 Mechanical Ventilator Laboratory Tests Test 11/03/17 07:30 11/03/17 08:00 11/03/17 16:00 White Blood Count 12.6 K/UL (4.8-10.8) H Red Blood Count 3.64 M/UL (4.20-5.40) L Hemoglobin 10.8 G/DL (12.0-16.0) L Hematocrit 33.0 % (37.0-47.0) L Mean Corpuscular Volume 90 FL (80-99) Mean Corpuscular Hemoglobin 29.6 PG (27.0-31.0) Mean Corpuscular Hemoglobin Concent 32.7 G/DL (32.0-36.0) Red Cell Distribution Width 11.7 % (11.6-14.8) Platelet Count 299 K/UL (150-450) Mean Platelet Volume 6.8 FL (6.5-10.1) Neutrophils (%) (Auto) 61.6 % (45.0-75.0) Lymphocytes (%) (Auto) 28.0 % (20.0-45.0) Monocytes (%) (Auto) 9.1 % (1.0-10.0) Eosinophils (%) (Auto) 0.3 % (0.0-3.0) Basophils (%) (Auto) 1.0 % (0.0-2.0) Sodium Level 146 MMOL/L (136-145) H Potassium Level 2.8 MMOL/L (3.5-5.1) L Chloride Level 111 MMOL/L (98-107) H Carbon Dioxide Level 24 MMOL/L (21-32) Anion Gap 11 mmol/L (5-15) Blood Urea Nitrogen 15 mg/dL (7-18) Creatinine 0.9 MG/DL (0.55-1.30) Estimat Glomerular Filtration Rate > 60 mL/min (>60) Glucose Level 101 MG/DL (74-106) Calcium Level 8.6 MG/DL (8.5-10.1) Phosphorus Level 2.7 MG/DL (2.5-4.9) Magnesium Level 1.7 MG/DL (1.8-2.4) L Total Bilirubin 0.3 MG/DL (0.2-1.0) Aspartate Amino Transf (AST/SGOT) 119 U/L (15-37) H Alanine Aminotransferase (ALT/SGPT) 113 U/L (12-78) H Alkaline Phosphatase 92 U/L (46-116) Total Protein 6.5 G/DL (6.4-8.2) Albumin 2.4 G/DL (3.4-5.0) L Globulin 4.1 g/dL Albumin/Globulin Ratio 0.6 (1.0-2.7) L Arterial Blood pH 7.480 (7.350-7.450) Arterial Blood Partial Pressure CO2 30.4 mmHg (35.0-45.0) L Arterial Blood Partial Pressure O2 101.7 mmHg (75.0-100.0) H Arterial Blood HCO3 22.3 mmol/L (22.0-26.0) Arterial Blood Oxygen Saturation 97.4 % (92.0-98.0) Arterial Blood Base Excess -0.5 Aj Test Positive Stool Occult Blood Pending Neurologic Exam Objective PHYSICAL EXAMINATION: GENERAL: She is a well-developed, cachectic, lean, black lady, lying in an ICU bed, in no acute distress, connected to a ventilator via an orotracheal tube. HEAD: Normocephalic and atraumatic. EENT: Examination benign. NECK: No neck rigidity was observed. NEUROLOGIC EXAMINATION: MENTAL STATUS EXAMINATION: She was comatose and only responded to deep painful stimuli with decerebration in the upper extremities. Further mental status testing was impossible. SPEECH: Could not be tested. LANGUAGE: Could not be tested. CRANIAL NERVE EXAMINATION: II: She did not blink to threat. III, IV & : The external ocular movements were present on oculocephalic maneuvers. The pupils were 3 mm in diameter and reactive sluggishly to light. V & VII: The corneal reflexes were present, but significantly diminished. VIII: She did not respond to sounds and had no nystagmus. IX & X: The gag reflex was absent on manipulating the endotracheal tube. XI: The sternocleidomastoids and trapezii could not be tested. XII: Could not be tested. MOTOR SYSTEM: The tone was increased in all four extremities with severe spasticity. Examination of muscle mass revealed generalized muscle wasting. Examination of power was impossible to perform because even on applying deep painful stimuli, no purposeful movements were seen. SENSORY EXAMINATION: She responded to deep pain with decerebration. REFLEXES: 1+ and bilaterally symmetrical at the biceps, triceps, brachioradialis , and knees. 0 at both ankles. The plantar responses were extensor bilaterally. COORDINATION, STANCE & GAIT: Could not be tested. Impression/Recommendations Diagnostic Impression 1. Ms. Polly Robertson is a 57-year-old, right-handed, black lady, who does have a past history of polysubstance abuse with her recent drug of choice being cocaine, a seizure disorder, and chronic pain, who was found down in her bathroom at home with vomitus in her mouth. She then was noted to stop breathing and this progressed to cardiac failure. The paramedics were called in and she had to have advanced cardiac life support before she could be resuscitated. She was then transported to the [facility] emergency room and on the way here she was noted to have a generalized seizure. Since then, she has had multiple seizures, however, at this point in time, they are well controlled on the present regimen. 2. She continues to be in a comatose state. She does however exhibit spontaneous eye opening and closing. She is still exhibiting decerebrate posturing. She has had no seizures or seizure like phenomena. She continues to be artificially ventilated. There has been no improvement in her neurologic state. 3. On neurological examination, at this time, she is comatose and only responds to deep pain with decerebration. She however does not demonstrate any focal or lateralizing findings. 4. The CT scan of the brain without contrast is benign for acute pathology. 5. Her latest laboratory data on my initial evaluation revealed that her WBC count was elevated to 17,600 with predominantly 79% being neutrophils and 15% being lymphocytes and monocytes. Her arterial blood gas revealed pCO2 low at 21.2, pO2 at 154, and pH of 7.49. Her chemistry panel revealed a creatinine elevated to 1.7. Her AST was elevated at 255, ALT elevated at 251, and alkaline phosphatase elevated at 142. Her albumin was low at 2.9. Her Urinalysis revealed 1+ leukocyte esterase, 20- 30 red blood cells, and 5-10 white blood cells per high-power field. The urine toxicology screen was positive for cocaine. 6. Her EEG done on 10/31/17 revealed a severe encephalopathy and bilateral frontal epileptogenic foci with inter-ictal discharges at time with a large field. 7. The patient's history, neurological examination, laboratory data and imaging studies are most compatible with seizures due to a hypoxic/ischemic cerebral insult and/or cocaine intoxication. 8. The prognosis for recovery of cerebral function is dismal. Recommendations 1. Continue present management. 2. Continue to treat the patient's infectious process vigorously. 3. Continue Dilantin 100 mg intravenously q.8 h. 4. Continue Keppra 1 G intravenously every 8 hours. 5. In light of her poor prognosis make decision regarding intensity of care. Denisse Lester M.D., M.S.P.DENISSE ERAZO Nov 03, 2017 18:16
--- NOTE | 2017-11-03 19:08 | General Progress Note ---
Assessment/Plan Problem List: (1) Hypoglycemia ICD Codes: E16.2 - Hypoglycemia, unspecified SNOMED: 183975477 (2) SLE (systemic lupus erythematosus) ICD Codes: M32.9 - Systemic lupus erythematosus, unspecified SNOMED: 55745133 (3) Cocaine abuse ICD Codes: F14.10 - Cocaine abuse, uncomplicated SNOMED: 04635067 (4) Elevated transaminase measurement ICD Codes: R74.0 - Nonspecific elevation of levels of transaminase and lactic acid dehydrogenase [LDH] SNOMED: 249710852, 391916785 (5) Diabetes ICD Codes: E11.9 - Type 2 diabetes mellitus without complications SNOMED: 78113216 Assessment/Plan - continue SoluCortef 50 mg - continue BG monitoring - hypoglycemia protocol - NISS Subjective ROS Limited/Unobtainable: Yes Allergies: Coded Allergies: ASPIRIN (Verified Allergy, Unknown, 10/30/17) PENICILLINS (Verified Allergy, Unknown, 10/30/17) UNABLE TO ASSESS (Unverified , 10/29/17) Subjective intubated in icu chest tube in right chest Objective Last 24 Hour Vital Signs Date Time Temp Pulse Resp B/P (MAP) Pulse Ox O2 Delivery O2 Flow Rate FiO2 11/03/17 18:58 174/89 11/03/17 17:12 109 15 30 11/03/17 17:00 119 17 170/84 (112) 99 11/03/17 16:00 98.4 106 15 166/86 (112) 100 98.4 11/03/17 16:00 110 11/03/17 16:00 30 11/03/17 16:00 Mechanical Ventilator 11/03/17 15:14 109 14 30 11/03/17 15:00 106 14 153/78 (103) 99 11/03/17 14:13 181/85 11/03/17 14:00 107 14 181/85 (117) 99 11/03/17 13:09 101 14 30 11/03/17 13:00 112 15 153/75 (101) 99 11/03/17 12:00 30 11/03/17 12:00 103 11/03/17 12:00 99.6 103 14 146/82 (103) 99 99.6 11/03/17 12:00 Mechanical Ventilator 11/03/17 11:28 108 14 30 11/03/17 11:00 99 14 142/71 (94) 98 11/03/17 10:00 101 14 142/71 (94) 99 11/03/17 09:00 107 15 141/73 (95) 98 11/03/17 08:41 108 14 30 11/03/17 08:38 157/80 11/03/17 08:00 99.8 109 14 157/80 (105) 99 99.8 11/03/17 08:00 Mechanical Ventilator 11/03/17 08:00 100 11/03/17 08:00 30 11/03/17 07:00 102 14 30 11/03/17 07:00 118 15 131/72 (91) 100 11/03/17 06:00 102 14 140/81 (100) 98 11/03/17 05:20 107 14 30 11/03/17 05:00 100 14 133/81 (98) 98 11/03/17 04:00 30 11/03/17 04:00 98.0 102 14 130/82 (98) 98 98.0 11/03/17 04:00 Mechanical Ventilator 11/03/17 04:00 107 11/03/17 03:00 104 14 138/82 (100) 98 11/03/17 02:55 104 14 30 11/03/17 02:00 95 14 123/76 (92) 99 11/03/17 01:00 97 14 127/80 (96) 99 11/03/17 00:49 98 14 30 11/03/17 00:12 167/91 11/03/17 00:00 102 11/03/17 00:00 99.2 91 14 167/91 (116) 99 99.2 11/03/17 00:00 Mechanical Ventilator 11/03/17 00:00 30 11/02/17 23:15 91 14 30 11/02/17 23:00 91 14 177/119 (138) 99 11/02/17 22:00 95 14 123/74 (90) 99 11/02/17 21:12 96 14 30 11/02/17 21:00 112 14 149/82 (104) 99 11/02/17 20:00 30 11/02/17 20:00 105 11/02/17 20:00 Mechanical Ventilator 11/02/17 20:00 99.0 112 14 142/79 (100) 99 99.0 11/02/17 19:20 116 21 30 Intake and Output 11/02/17 11/03/17 19:00 07:00 Intake Total 2050 ml 1582 ml Output Total 1100 ml 740 ml Balance 950 ml 842 ml Free Water 60 ml IV Total 1525 ml 982 ml Tube Feeding 525 ml 540 ml Output Urine Total 1100 ml 740 ml # Bowel Movements 2 Laboratory Tests 11/03/17 07:30: White Blood Count 12.6H, Red Blood Count 3.64L, Hemoglobin 10.8L, Hematocrit 33.0L, Mean Corpuscular Volume 90, Mean Corpuscular Hemoglobin 29.6, Mean Corpuscular Hemoglobin Concent 32.7, Red Cell Distribution Width 11.7, Platelet Count 299, Mean Platelet Volume 6.8, Neutrophils (%) (Auto) 61.6, Lymphocytes (% ) (Auto) 28.0, Monocytes (%) (Auto) 9.1, Eosinophils (%) (Auto) 0.3, Basophils ( %) (Auto) 1.0, Sodium Level 146H, Potassium Level 2.8L, Chloride Level 111H, Carbon Dioxide Level 24, Anion Gap 11, Blood Urea Nitrogen 15, Creatinine 0.9, Estimat Glomerular Filtration Rate > 60, Glucose Level 101, Calcium Level 8.6, Phosphorus Level 2.7, Magnesium Level 1.7L, Total Bilirubin 0.3, Aspartate Amino Transf (AST/SGOT) 119H, Alanine Aminotransferase (ALT/SGPT) 113H, Alkaline Phosphatase 92, Total Protein 6.5, Albumin 2.4L, Globulin 4.1, Albumin/ Globulin Ratio 0.6L 11/03/17 08:00: Arterial Blood pH 7.480H, Arterial Blood Partial Pressure CO2 30.4L, Arterial Blood Partial Pressure O2 101.7H, Arterial Blood HCO3 22.3, Arterial Blood Oxygen Saturation 97.4, Arterial Blood Base Excess -0.5, Aj Test Positive 11/03/17 16:00: Stool Occult Blood [Pending] Height (Feet): 5 Height (Inches): 2.00 Weight (Pounds): 104 General Appearance: moderate distress Neck: normal alignment Cardiovascular: normal peripheral pulses Respiratory/Chest: decreased breath sounds Pelvis: normal external exam Objective Current Medications Medications (Trade) Dose Ordered Sig/Yung Route PRN Reason Start Time Stop Time Status Last Admin Dose Admin Acetaminophen (Tylenol) 650 mg Q4H PRN RECTAL Prn Headache/Temp > 101 10/30/17 16:45 11/29/17 16:44 10/31/17 21:24 Albuterol/ Ipratropium (Albuterol/ Ipratropium) 3 ml Q4H PRN HHN Shortness of Breath 10/30/17 08:00 11/04/17 07:59 Ceftriaxone Sodium 1 gm/ Dextrose 55 ml @ 110 mls/hr Q24H IVPB 10/31/17 14:00 11/07/17 13:59 11/03/17 14:58 Chlorhexidine Gluconate (Sunita-Hex 2%) 1 applic DAILY@2000 TOPIC 10/30/17 20:00 11/29/17 19:59 11/02/17 19:41 Clonidine HCl (Catapres Tab) 0.1 mg Q4H PRN ORAL for SBP >160 11/01/17 13:00 12/01/17 12:59 11/03/17 18:58 Dextrose (Dextrose 50%) 25 ml STAT PRN IV Hypoglycemia 11/03/17 18:00 12/03/17 17:59 Dextrose (Dextrose 50%) 50 ml STAT PRN IV Hypoglycemia 11/03/17 18:00 12/03/17 17:59 Haloperidol Lactate 5 mg/ Dextrose 56 ml @ 112 mls/hr Q1H PRN IVPB Agitation 11/02/17 10:00 12/02/17 09:59 11/02/17 12:53 Heparin Sodium (Porcine) (Heparin 5000 units/ml) 5,000 units EVERY 12 HOURS SUBQ 10/30/17 09:00 11/29/17 08:59 11/03/17 08:39 Hydrocortisone (Solu-CORTEF) 50 mg DAILY IV 11/03/17 09:00 11/30/17 18:29 11/03/17 08:38 Insulin Aspart (NovoLOG) Q4HR SUBQ 11/03/17 20:00 12/03/17 19:59 Levetiracetam 100 ml @ 400 mls/hr Q8H IVPB 10/30/17 17:00 11/29/17 16:59 11/03/17 16:41 Metronidazole 100 ml @ 100 mls/hr Q8H IVPB 10/30/17 11:00 11/06/17 10:59 11/03/17 18:40 Morphine Sulfate (Morphine Sulfate) 4 mg Q4H PRN IVP Severe Pain (Pain Scale 7-10) 10/30/17 08:00 11/06/17 07:59 11/03/17 19:05 Nitroglycerin (Ntg) 0.4 mg Q5M PRN SL Prn Chest Pain 10/30/17 08:00 11/29/17 07:59 Ondansetron HCl (Zofran) 4 mg Q6H PRN IVP Nausea & Vomiting 10/30/17 08:00 11/29/17 07:59 Pantoprazole (Protonix) 40 mg DAILY IVP 11/02/17 09:00 12/02/17 08:59 11/03/17 08:37 Phenytoin 100 mg/ Sodium Chloride 57 ml @ 114 mls/hr [id number] PHENYTOIN IVPB 10/30/17 16:00 11/29/17 15:59 11/03/17 16:40 Potassium Chloride 100 ml @ 100 mls/hr Q1H IVPB 11/03/17 16:30 11/03/17 20:29 11/03/17 19:06 Item Value Date Time Bedside Blood Glucose 176 mg/dl H 11/03/17 1600 Bedside Blood Glucose 187 mg/dl H 11/03/17 1200 Bedside Blood Glucose 111 mg/dl 11/03/17 0800 Bedside Blood Glucose 118 mg/dl 11/03/17 0400 Bedside Blood Glucose 103 mg/dl 11/03/17 0000 Salvador Garcia MD Nov 03, 2017 19:08
[2017-11-03] MEDS: NovoLOG Insulin Flexpen SUBQ SCH ×2 (20:00→21:00)
[2017-11-03] MEDS: Dyna-Hex 2% Top Sol 2oz TOPIC SCH (20:20)
--- NOTE | 2017-11-03 21:09 | Cardiology Progress Note ---
Assessment/Plan Assessment/Plan 1. Sinus tachycardia. This could be secondary to cocaine intoxication or aspiration pneumonia/sepsis. Echo reveals normal left ventricular systolic function with LVEF of approximately 55%. Start low dose of diltiazem. 2. Acute hypoxemia respiratory failure, emergence of small right pneumothorax. 3. Mild pulmonary hypertension with right ventricular systolic pressure measured at 42 mmHg. 4. Seizure disorder 5. Polysubstance abuse. Subjective Subjective Sinus tachycardia at 107. Intubated. Objective Last 24 Hour Vital Signs Date Time Temp Pulse Resp B/P (MAP) Pulse Ox O2 Delivery O2 Flow Rate FiO2 11/03/17 19:07 127 18 30 11/03/17 19:00 121 20 137/78 (97) 99 11/03/17 18:58 174/89 11/03/17 18:00 115 16 153/89 (110) 100 11/03/17 17:12 109 15 30 11/03/17 17:00 119 17 170/84 (112) 99 11/03/17 16:00 98.4 106 15 166/86 (112) 100 98.4 11/03/17 16:00 110 11/03/17 16:00 30 11/03/17 16:00 Mechanical Ventilator 11/03/17 15:14 109 14 30 11/03/17 15:00 106 14 153/78 (103) 99 11/03/17 14:13 181/85 11/03/17 14:00 107 14 181/85 (117) 99 11/03/17 13:09 101 14 30 11/03/17 13:00 112 15 153/75 (101) 99 11/03/17 12:00 30 11/03/17 12:00 103 11/03/17 12:00 99.6 103 14 146/82 (103) 99 99.6 11/03/17 12:00 Mechanical Ventilator 11/03/17 11:28 108 14 30 11/03/17 11:00 99 14 142/71 (94) 98 11/03/17 10:00 101 14 142/71 (94) 99 11/03/17 09:00 107 15 141/73 (95) 98 11/03/17 08:41 108 14 30 11/03/17 08:38 157/80 11/03/17 08:00 99.8 109 14 157/80 (105) 99 99.8 11/03/17 08:00 Mechanical Ventilator 11/03/17 08:00 100 11/03/17 08:00 30 11/03/17 07:00 102 14 30 11/03/17 07:00 118 15 131/72 (91) 100 11/03/17 06:00 102 14 140/81 (100) 98 11/03/17 05:20 107 14 30 11/03/17 05:00 100 14 133/81 (98) 98 11/03/17 04:00 30 11/03/17 04:00 98.0 102 14 130/82 (98) 98 98.0 11/03/17 04:00 Mechanical Ventilator 11/03/17 04:00 107 11/03/17 03:00 104 14 138/82 (100) 98 11/03/17 02:55 104 14 30 11/03/17 02:00 95 14 123/76 (92) 99 11/03/17 01:00 97 14 127/80 (96) 99 11/03/17 00:49 98 14 30 11/03/17 00:12 167/91 11/03/17 00:00 102 11/03/17 00:00 99.2 91 14 167/91 (116) 99 99.2 11/03/17 00:00 Mechanical Ventilator 11/03/17 00:00 30 11/02/17 23:15 91 14 30 11/02/17 23:00 91 14 177/119 (138) 99 11/02/17 22:00 95 14 123/74 (90) 99 11/02/17 21:12 96 14 30 Intake and Output 11/02/17 11/03/17 19:00 07:00 Intake Total 2050 ml 1582 ml Output Total 1100 ml 740 ml Balance 950 ml 842 ml Free Water 60 ml IV Total 1525 ml 982 ml Tube Feeding 525 ml 540 ml Output Urine Total 1100 ml 740 ml # Bowel Movements 2 2D Echo: EF 60-65%, mild LVH, Mild AR, normal LVDD, RVSP 42 mmHg Laboratory Tests Test 11/03/17 07:30 11/03/17 08:00 11/03/17 16:00 White Blood Count 12.6 K/UL (4.8-10.8) H Red Blood Count 3.64 M/UL (4.20-5.40) L Hemoglobin 10.8 G/DL (12.0-16.0) L Hematocrit 33.0 % (37.0-47.0) L Mean Corpuscular Volume 90 FL (80-99) Mean Corpuscular Hemoglobin 29.6 PG (27.0-31.0) Mean Corpuscular Hemoglobin Concent 32.7 G/DL (32.0-36.0) Red Cell Distribution Width 11.7 % (11.6-14.8) Platelet Count 299 K/UL (150-450) Mean Platelet Volume 6.8 FL (6.5-10.1) Neutrophils (%) (Auto) 61.6 % (45.0-75.0) Lymphocytes (%) (Auto) 28.0 % (20.0-45.0) Monocytes (%) (Auto) 9.1 % (1.0-10.0) Eosinophils (%) (Auto) 0.3 % (0.0-3.0) Basophils (%) (Auto) 1.0 % (0.0-2.0) Sodium Level 146 MMOL/L (136-145) H Potassium Level 2.8 MMOL/L (3.5-5.1) L Chloride Level 111 MMOL/L (98-107) H Carbon Dioxide Level 24 MMOL/L (21-32) Anion Gap 11 mmol/L (5-15) Blood Urea Nitrogen 15 mg/dL (7-18) Creatinine 0.9 MG/DL (0.55-1.30) Estimat Glomerular Filtration Rate > 60 mL/min (>60) Glucose Level 101 MG/DL (74-106) Calcium Level 8.6 MG/DL (8.5-10.1) Phosphorus Level 2.7 MG/DL (2.5-4.9) Magnesium Level 1.7 MG/DL (1.8-2.4) L Total Bilirubin 0.3 MG/DL (0.2-1.0) Aspartate Amino Transf (AST/SGOT) 119 U/L (15-37) H Alanine Aminotransferase (ALT/SGPT) 113 U/L (12-78) H Alkaline Phosphatase 92 U/L (46-116) Total Protein 6.5 G/DL (6.4-8.2) Albumin 2.4 G/DL (3.4-5.0) L Globulin 4.1 g/dL Albumin/Globulin Ratio 0.6 (1.0-2.7) L Arterial Blood pH 7.480 (7.350-7.450) Arterial Blood Partial Pressure CO2 30.4 mmHg (35.0-45.0) L Arterial Blood Partial Pressure O2 101.7 mmHg (75.0-100.0) H Arterial Blood HCO3 22.3 mmol/L (22.0-26.0) Arterial Blood Oxygen Saturation 97.4 % (92.0-98.0) Arterial Blood Base Excess -0.5 Aj Test Positive Stool Occult Blood Pending Objective HEENT: Atraumatic and normocephalic. Anicteric. Pupils are equal, round, and reactive to light and accommodation. NECK: JVP cannot be assessed due to intubation. CARDIOVASCULAR: Normal S1, S2. Tachycardic. No murmurs, gallops, or rubs. LUNGS: Diminished breath sounds in both bases. ABDOMEN: Soft, nontender, and nondistended. Positive bowel sounds. EXTREMITIES: No evidence of edema, clubbing, or cyanosis. Geovany Brown MD Nov 03, 2017 21:09
[2017-11-03] MEDS: dilTIAZem HCl 30mg tab NG SCH (21:19)
[2017-11-03] MEDS: Acetaminophen 650mg/20.3ml NG PRN (22:19)
[2017-11-04] VITALS (23 sets, daily range): BP systolic 107–193; BP diastolic 65–98
[2017-11-04] MEDS: Phenytoin 100 MG in NS 55 ML IVPB SCH ×3 (00:01→16:25)
[2017-11-04] MEDS: levETIRAcetam 1,000mg/NS100ml 100 ML IVPB SCH ×3 (01:11→17:24)
[2017-11-04] MEDS: NovoLOG Insulin Flexpen SUBQ SCH ×6 (01:12→21:00)
[2017-11-04] MEDS: Morphine Sulfate 4mg/ml Inj (IV USE ONLY) IVP PRN ×3 (02:27→21:15)
[2017-11-04 05:58] LABS: EOSINOPHILS % (AUTO) 0.7 % (0.0-3.0); HEMOGLOBIN 10.3 G/DL (12.0-16.0); LYMPHOCYTES % (AUTO) 28.7 % (20.0-45.0); MEAN CORPUSCULAR VOLUME 91 FL (80-99); MONOCYTES % (AUTO) 9.1 % (1.0-10.0); NEUTROPHILS % (AUTO) 60.6 % (45.0-75.0); PLATELET COUNT 272 K/UL (150-450); RED BLOOD COUNT 3.53 M/UL (4.20-5.40); RED CELL DISTRIBUTION WIDTH 11.5 % (11.6-14.8); WHITE BLOOD COUNT 12.2 K/UL (4.8-10.8)
[2017-11-04 06:32] LABS: ALANINE AMINOTRANSFERASE 100 U/L (12-78); ALBUMIN 2.3 G/DL (3.4-5.0); ALBUMIN/GLOBULIN RATIO 0.6 (1.0-2.7); ALKALINE PHOSPHATASE 90 U/L (46-116); ANION GAP 8 mmol/L (5-15); ASPARTATE AMINO TRANSFERASE 81 U/L (15-37); BILIRUBIN,TOTAL 0.2 MG/DL (0.2-1.0); BLOOD UREA NITROGEN 12 mg/dL (7-18); CALCIUM 8.4 MG/DL (8.5-10.1); CARBON DIOXIDE 29 MMOL/L (21-32); CHLORIDE 106 MMOL/L (98-107); CREATININE 0.7 MG/DL (0.55-1.30); PHOSPHORUS 3.1 MG/DL (2.5-4.9); SODIUM 143 MMOL/L (136-145)
[2017-11-04 06:33] LABS: POTASSIUM 2.6 MMOL/L (3.5-5.1)
[2017-11-04 06:38] LABS: % IRON SATURATION 42 % (15-50); IRON 69 ug/dL (50-175); TOTAL IRON BINDING CAPACITY 165 ug/dL (250-450)
--- NOTE | 2017-11-04 07:00 | General Progress Note ---
Assessment/Plan Problem List: (1) Hypoglycemia ICD Codes: E16.2 - Hypoglycemia, unspecified SNOMED: 288974065 (2) SLE (systemic lupus erythematosus) ICD Codes: M32.9 - Systemic lupus erythematosus, unspecified SNOMED: 56860767 (3) Cocaine abuse ICD Codes: F14.10 - Cocaine abuse, uncomplicated SNOMED: 76161345 (4) Elevated transaminase measurement ICD Codes: R74.0 - Nonspecific elevation of levels of transaminase and lactic acid dehydrogenase [LDH] SNOMED: 833079015, 338062845 (5) Diabetes ICD Codes: E11.9 - Type 2 diabetes mellitus without complications SNOMED: 31115340 Assessment/Plan - continue SoluCortef 50 mg - continue BG monitoring - hypoglycemia protocol - NISS low dose Subjective ROS Limited/Unobtainable: Yes Allergies: Coded Allergies: ASPIRIN (Verified Allergy, Unknown, 10/30/17) PENICILLINS (Verified Allergy, Unknown, 10/30/17) UNABLE TO ASSESS (Unverified , 10/29/17) Subjective intubated in icu Objective Last 24 Hour Vital Signs Date Time Temp Pulse Resp B/P (MAP) Pulse Ox O2 Delivery O2 Flow Rate FiO2 11/04/17 06:00 90 14 137/69 (91) 100 11/04/17 05:23 105 14 30 11/04/17 05:00 97 14 152/73 (99) 100 11/04/17 04:00 30 11/04/17 04:00 98.8 97 14 152/72 (98) 100 98.8 11/04/17 04:00 Mechanical Ventilator 11/04/17 04:00 108 11/04/17 03:41 94 14 Mechanical Ventilator 30 11/04/17 03:18 94 14 30 11/04/17 03:00 97 14 157/74 (101) 100 11/04/17 02:00 106 14 141/76 (97) 100 11/04/17 01:00 104 14 138/79 (98) 99 11/04/17 00:34 134 18 30 11/04/17 00:00 Mechanical Ventilator 11/04/17 00:00 99.8 104 16 145/79 (101) 98 99.8 11/04/17 00:00 30 11/04/17 00:00 104 11/03/17 23:04 103 15 30 11/03/17 23:00 108 16 148/78 (101) 98 11/03/17 22:49 98.6 11/03/17 22:19 100.9 11/03/17 22:00 110 16 160/80 (106) 98 11/03/17 21:19 108 148/89 11/03/17 21:04 107 14 30 11/03/17 21:00 111 15 138/88 (105) 98 11/03/17 20:00 Mechanical Ventilator 11/03/17 20:00 108 11/03/17 20:00 100.0 121 20 170/85 (113) 99 100.0 11/03/17 19:07 127 18 30 11/03/17 19:00 121 20 137/78 (97) 99 11/03/17 18:58 174/89 11/03/17 18:00 115 16 153/89 (110) 100 11/03/17 17:12 109 15 30 11/03/17 17:00 119 17 170/84 (112) 99 11/03/17 16:00 98.4 106 15 166/86 (112) 100 98.4 11/03/17 16:00 110 11/03/17 16:00 30 11/03/17 16:00 Mechanical Ventilator 11/03/17 15:14 109 14 30 11/03/17 15:00 106 14 153/78 (103) 99 11/03/17 14:13 181/85 11/03/17 14:00 107 14 181/85 (117) 99 11/03/17 13:09 101 14 30 11/03/17 13:00 112 15 153/75 (101) 99 11/03/17 12:00 30 11/03/17 12:00 103 11/03/17 12:00 99.6 103 14 146/82 (103) 99 99.6 11/03/17 12:00 Mechanical Ventilator 11/03/17 11:28 108 14 30 11/03/17 11:00 99 14 142/71 (94) 98 11/03/17 10:00 101 14 142/71 (94) 99 11/03/17 09:00 107 15 141/73 (95) 98 11/03/17 08:41 108 14 30 11/03/17 08:38 157/80 11/03/17 08:00 99.8 109 14 157/80 (105) 99 99.8 11/03/17 08:00 Mechanical Ventilator 11/03/17 08:00 100 11/03/17 08:00 30 11/03/17 07:00 102 14 30 11/03/17 07:00 118 15 131/72 (91) 100 Intake and Output 11/03/17 11/04/17 19:00 07:00 Intake Total 2545.50 ml 695 ml Output Total 1442 ml 764 ml Balance 1103.50 ml -69 ml Free Water 230 ml 200 ml IV Total 1775.50 ml Tube Feeding 540 ml 495 ml Output Urine Total 1440 ml 760 ml Stool Total 2 ml 4 ml # Bowel Movements 1 3 Laboratory Tests 11/03/17 07:30: White Blood Count 12.6H, Red Blood Count 3.64L, Hemoglobin 10.8L, Hematocrit 33.0L, Mean Corpuscular Volume 90, Mean Corpuscular Hemoglobin 29.6, Mean Corpuscular Hemoglobin Concent 32.7, Red Cell Distribution Width 11.7, Platelet Count 299, Mean Platelet Volume 6.8, Neutrophils (%) (Auto) 61.6, Lymphocytes (% ) (Auto) 28.0, Monocytes (%) (Auto) 9.1, Eosinophils (%) (Auto) 0.3, Basophils ( %) (Auto) 1.0, Sodium Level 146H, Potassium Level 2.8L, Chloride Level 111H, Carbon Dioxide Level 24, Anion Gap 11, Blood Urea Nitrogen 15, Creatinine 0.9, Estimat Glomerular Filtration Rate > 60, Glucose Level 101, Calcium Level 8.6, Phosphorus Level 2.7, Magnesium Level 1.7L, Total Bilirubin 0.3, Aspartate Amino Transf (AST/SGOT) 119H, Alanine Aminotransferase (ALT/SGPT) 113H, Alkaline Phosphatase 92, Total Protein 6.5, Albumin 2.4L, Globulin 4.1, Albumin/ Globulin Ratio 0.6L 11/03/17 08:00: Arterial Blood pH 7.480H, Arterial Blood Partial Pressure CO2 30.4L, Arterial Blood Partial Pressure O2 101.7H, Arterial Blood HCO3 22.3, Arterial Blood Oxygen Saturation 97.4, Arterial Blood Base Excess -0.5, Aj Test Positive 11/03/17 16:00: Stool Occult Blood [Pending] 11/04/17 04:30: White Blood Count 12.2H, Red Blood Count 3.53L, Hemoglobin 10.3L, Hematocrit 32.0L, Mean Corpuscular Volume 91, Mean Corpuscular Hemoglobin 29.2, Mean Corpuscular Hemoglobin Concent 32.2, Red Cell Distribution Width 11.5L, Platelet Count 272, Mean Platelet Volume 6.7, Neutrophils (%) (Auto) 60.6, Lymphocytes (%) (Auto) 28.7, Monocytes (%) (Auto) 9.1, Eosinophils (%) (Auto) 0.7, Basophils (%) (Auto) 1.0, Sodium Level 143, Potassium Level 2.6*L, Chloride Level 106, Carbon Dioxide Level 29, Anion Gap 8, Blood Urea Nitrogen 12 , Creatinine 0.7, Estimat Glomerular Filtration Rate > 60, Glucose Level 103, Calcium Level 8.4L, Phosphorus Level 3.1, Magnesium Level 1.9, Total Bilirubin 0.2, Aspartate Amino Transf (AST/SGOT) 81H, Alanine Aminotransferase (ALT/SGPT) 100H, Alkaline Phosphatase 90, Total Protein 6.3L, Albumin 2.3L, Globulin 4.0, Albumin/Globulin Ratio 0.6L, Iron Level 69, Total Iron Binding Capacity 165L, Percent Iron Saturation 42, Unsaturated Iron Binding 96L, Hepatitis A IgM Antibody [Pending], Hepatitis B Surface Antigen [Pending], Hepatitis B Core IgM Antibody [Pending], Hepatitis C Antibody [Pending] Height (Feet): 5 Height (Inches): 2.00 Weight (Pounds): 107 General Appearance: moderate distress Neck: normal alignment Cardiovascular: tachycardia Respiratory/Chest: decreased breath sounds Abdomen: normal bowel sounds Objective Current Medications Medications (Trade) Dose Ordered Sig/Yung Route PRN Reason Start Time Stop Time Status Last Admin Dose Admin Acetaminophen (Tylenol) 650 mg Q4H PRN RECTAL Prn Headache/Temp > 101 10/30/17 16:45 11/29/17 16:44 10/31/17 21:24 Acetaminophen (Tylenol) 650 mg Q6H PRN NG Mild Pain/Temp > 100.5 11/03/17 22:00 12/03/17 21:59 11/03/17 22:19 Albuterol/ Ipratropium (Albuterol/ Ipratropium) 3 ml Q4H PRN HHN Shortness of Breath 10/30/17 08:00 11/04/17 07:59 Ceftriaxone Sodium 1 gm/ Dextrose 55 ml @ 110 mls/hr Q24H IVPB 10/31/17 14:00 11/07/17 13:59 11/03/17 14:58 Chlorhexidine Gluconate (Sunita-Hex 2%) 1 applic DAILY@2000 TOPIC 10/30/17 20:00 11/29/17 19:59 11/03/17 20:20 Clonidine HCl (Catapres Tab) 0.1 mg Q4H PRN ORAL for SBP >160 11/01/17 13:00 12/01/17 12:59 11/03/17 18:58 Dextrose (Dextrose 50%) 25 ml STAT PRN IV Hypoglycemia 11/03/17 18:00 12/03/17 17:59 Dextrose (Dextrose 50%) 50 ml STAT PRN IV Hypoglycemia 11/03/17 18:00 12/03/17 17:59 Diltiazem HCl (Cardizem) 30 mg EVERY 12 HOURS NG 11/03/17 21:10 12/03/17 21:09 11/03/17 21:19 Haloperidol Lactate 5 mg/ Dextrose 56 ml @ 112 mls/hr Q1H PRN IVPB Agitation 11/02/17 10:00 12/02/17 09:59 11/02/17 12:53 Heparin Sodium (Porcine) (Heparin 5000 units/ml) 5,000 units EVERY 12 HOURS SUBQ 10/30/17 09:00 11/29/17 08:59 11/03/17 21:20 Hydrocortisone (Solu-CORTEF) 50 mg DAILY IV 11/03/17 09:00 11/30/17 18:29 11/03/17 08:38 Insulin Aspart (NovoLOG) Q4HR SUBQ 11/03/17 20:00 12/03/17 19:59 11/04/17 01:12 Levetiracetam 100 ml @ 400 mls/hr Q8H IVPB 10/30/17 17:00 11/29/17 16:59 11/04/17 01:11 Metronidazole 100 ml @ 100 mls/hr Q8H IVPB 10/30/17 11:00 11/06/17 10:59 11/04/17 02:34 Morphine Sulfate (Morphine Sulfate) 4 mg Q4H PRN IVP Severe Pain (Pain Scale 7-10) 10/30/17 08:00 11/06/17 07:59 11/04/17 02:27 Nitroglycerin (Ntg) 0.4 mg Q5M PRN SL Prn Chest Pain 10/30/17 08:00 11/29/17 07:59 Ondansetron HCl (Zofran) 4 mg Q6H PRN IVP Nausea & Vomiting 10/30/17 08:00 11/29/17 07:59 Pantoprazole (Protonix) 40 mg DAILY IVP 11/02/17 09:00 12/02/17 08:59 11/03/17 08:37 Phenytoin 100 mg/ Sodium Chloride 57 ml @ 114 mls/hr [id number] PHENYTOIN IVPB 10/30/17 16:00 11/29/17 15:59 11/04/17 00:01 Item Value Date Time Bedside Blood Glucose 103 mg/dl 11/04/17 0500 Bedside Blood Glucose 122 mg/dl H 11/04/17 0112 Bedside Blood Glucose 102 mg/dl 11/03/17 2100 Bedside Blood Glucose 176 mg/dl H 11/03/17 1600 Bedside Blood Glucose 187 mg/dl H 11/03/17 1200 Bedside Blood Glucose 111 mg/dl 11/03/17 0800 Salvador Garcia MD Nov 04, 2017 07:00
[2017-11-04] MEDS: Hydrocortisone 100mg Inj IV SCH (09:02)
[2017-11-04] MEDS: Pantoprazole Inj IVP SCH (09:02)
[2017-11-04] MEDS: dilTIAZem HCl 30mg tab NG SCH ×2 (09:02→21:12)
--- NOTE | 2017-11-04 09:27 | Pulmonolgy Critical Care Note ---
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 - Objective Last 24 Hour Vital Signs Date Time Temp Pulse Resp B/P (MAP) Pulse Ox O2 Delivery O2 Flow Rate FiO2 11/04/17 09:02 117 143/79 11/04/17 08:36 109 14 30 11/04/17 08:00 111 11/04/17 08:00 30 11/04/17 08:00 111 14 148/80 (102) 100 11/04/17 08:00 Mechanical Ventilator 11/04/17 06:34 89 14 30 11/04/17 06:00 90 14 137/69 (91) 100 11/04/17 05:23 105 14 30 11/04/17 05:00 97 14 152/73 (99) 100 11/04/17 04:00 30 11/04/17 04:00 98.8 97 14 152/72 (98) 100 98.8 11/04/17 04:00 Mechanical Ventilator 11/04/17 04:00 108 11/04/17 03:41 94 14 Mechanical Ventilator 30 11/04/17 03:18 94 14 30 11/04/17 03:00 97 14 157/74 (101) 100 11/04/17 02:00 106 14 141/76 (97) 100 11/04/17 01:00 104 14 138/79 (98) 99 11/04/17 00:34 134 18 30 11/04/17 00:00 Mechanical Ventilator 11/04/17 00:00 99.8 104 16 145/79 (101) 98 99.8 11/04/17 00:00 30 11/04/17 00:00 104 11/03/17 23:04 103 15 30 11/03/17 23:00 108 16 148/78 (101) 98 11/03/17 22:49 98.6 11/03/17 22:19 100.9 11/03/17 22:00 110 16 160/80 (106) 98 11/03/17 21:19 108 148/89 11/03/17 21:04 107 14 30 11/03/17 21:00 111 15 138/88 (105) 98 11/03/17 20:00 Mechanical Ventilator 11/03/17 20:00 108 11/03/17 20:00 100.0 121 20 170/85 (113) 99 100.0 11/03/17 19:07 127 18 30 11/03/17 19:00 121 20 137/78 (97) 99 11/03/17 18:58 174/89 11/03/17 18:00 115 16 153/89 (110) 100 11/03/17 17:12 109 15 30 11/03/17 17:00 119 17 170/84 (112) 99 11/03/17 16:00 98.4 106 15 166/86 (112) 100 98.4 11/03/17 16:00 110 11/03/17 16:00 30 11/03/17 16:00 Mechanical Ventilator 11/03/17 15:14 109 14 30 11/03/17 15:00 106 14 153/78 (103) 99 11/03/17 14:13 181/85 11/03/17 14:00 107 14 181/85 (117) 99 11/03/17 13:09 101 14 30 11/03/17 13:00 112 15 153/75 (101) 99 11/03/17 12:00 30 11/03/17 12:00 103 11/03/17 12:00 99.6 103 14 146/82 (103) 99 99.6 11/03/17 12:00 Mechanical Ventilator 11/03/17 11:28 108 14 30 11/03/17 11:00 99 14 142/71 (94) 98 11/03/17 10:00 101 14 142/71 (94) 99 Status: obtunded Condition: critical HEENT: atraumatic Lungs: chest wall tender Heart: HR/BP unstable Abdomen: soft, active bowel sounds, feeding tube Decubiti: location Accucheck: 98 Critical Care - Subjective ROS Limited/Unobtainable: Yes Condition: critical FI02: 30 Vent Support Breath Rate: 14 Vent Support Mode: AC Vent Tidal Volume: 600 Sputum Amount: Moderate PEEP: 0.0 PIP: 30 Tube Feeding Amount: 45 I&O: Intake and Output 11/03/17 11/04/17 19:00 07:00 Intake Total 2545.50 ml 1052 ml Output Total 1442 ml 764 ml Balance 1103.50 ml 288 ml Free Water 230 ml 200 ml IV Total 1775.50 ml 357 ml Tube Feeding 540 ml 495 ml Output Urine Total 1440 ml 760 ml Stool Total 2 ml 4 ml # Bowel Movements 1 3 ET-Tube: 7.5 ET Position: 23 Labs: Laboratory Tests Test 11/03/17 16:00 11/04/17 04:30 11/04/17 07:40 Stool Occult Blood Pending White Blood Count 12.2 K/UL (4.8-10.8) H Red Blood Count 3.53 M/UL (4.20-5.40) L Hemoglobin 10.3 G/DL (12.0-16.0) L Hematocrit 32.0 % (37.0-47.0) L Mean Corpuscular Volume 91 FL (80-99) Mean Corpuscular Hemoglobin 29.2 PG (27.0-31.0) Mean Corpuscular Hemoglobin Concent 32.2 G/DL (32.0-36.0) Red Cell Distribution Width 11.5 % (11.6-14.8) L Platelet Count 272 K/UL (150-450) Mean Platelet Volume 6.7 FL (6.5-10.1) Neutrophils (%) (Auto) 60.6 % (45.0-75.0) Lymphocytes (%) (Auto) 28.7 % (20.0-45.0) Monocytes (%) (Auto) 9.1 % (1.0-10.0) Eosinophils (%) (Auto) 0.7 % (0.0-3.0) Basophils (%) (Auto) 1.0 % (0.0-2.0) Sodium Level 143 MMOL/L (136-145) Potassium Level 2.6 MMOL/L (3.5-5.1) *L Chloride Level 106 MMOL/L (98-107) Carbon Dioxide Level 29 MMOL/L (21-32) Anion Gap 8 mmol/L (5-15) Blood Urea Nitrogen 12 mg/dL (7-18) Creatinine 0.7 MG/DL (0.55-1.30) Estimat Glomerular Filtration Rate > 60 mL/min (>60) Glucose Level 103 MG/DL (74-106) Calcium Level 8.4 MG/DL (8.5-10.1) L Phosphorus Level 3.1 MG/DL (2.5-4.9) Magnesium Level 1.9 MG/DL (1.8-2.4) Iron Level 69 ug/dL (50-175) Total Iron Binding Capacity 165 ug/dL (250-450) L Percent Iron Saturation 42 % (15-50) Unsaturated Iron Binding 96 ug/dL (112-346) L Total Bilirubin 0.2 MG/DL (0.2-1.0) Aspartate Amino Transf (AST/SGOT) 81 U/L (15-37) H Alanine Aminotransferase (ALT/SGPT) 100 U/L (12-78) H Alkaline Phosphatase 90 U/L (46-116) Total Protein 6.3 G/DL (6.4-8.2) L Albumin 2.3 G/DL (3.4-5.0) L Globulin 4.0 g/dL Albumin/Globulin Ratio 0.6 (1.0-2.7) L Hepatitis A IgM Antibody Pending Hepatitis B Surface Antigen Pending Hepatitis B Core IgM Antibody Pending Hepatitis C Antibody Pending Arterial Blood pH 7.480 (7.350-7.450) Arterial Blood Partial Pressure CO2 36.6 mmHg (35.0-45.0) Arterial Blood Partial Pressure O2 89.2 mmHg (75.0-100.0) Arterial Blood HCO3 27.1 mmol/L (22.0-26.0) H Arterial Blood Oxygen Saturation 96.9 % (92.0-98.0) Arterial Blood Base Excess 3.7 Aj Test Positive Evan Purcell MD Nov 04, 2017 09:27
[2017-11-04] MEDS: Acetaminophen 650mg/20.3ml NG PRN ×2 (09:53→17:25)
[2017-11-04] MEDS: Heparin 5000 units/ml inj SUBQ SCH ×2 (10:02→21:14)
--- NOTE | 2017-11-04 11:23 | GI Progress Note ---
Assessment/Plan Problems: (1) Diabetes ICD Codes: E11.9 - Type 2 diabetes mellitus without complications SNOMED: 51716492 (2) Cocaine abuse ICD Codes: F14.10 - Cocaine abuse, uncomplicated SNOMED: 76284270 (3) Transaminitis ICD Codes: R74.0 - Nonspecific elevation of levels of transaminase and lactic acid dehydrogenase [LDH] SNOMED: 826163492, 556207259 (4) Anemia ICD Codes: D64.9 - Anemia, unspecified SNOMED: 927867195 Status: unchanged Status Narrative Discussed with Dr. Sauceda. Assessment/Plan shocked liver supportive care electrolyte replacement OTFs per RD on Dilantin, can affect liver function trend LFTs ppi fu labs, iron panel OB stool The patient was seen and examined at bedside and all new and available data was reviewed in the patients chart. I agree with the above findings, impression and plan. (Patient seen earlier today. Signature stamp does not reflect patient encounter time.). - Renaldo Sauceda MD Subjective Subjective limited Objective Last 24 Hour Vital Signs Date Time Temp Pulse Resp B/P (MAP) Pulse Ox O2 Delivery O2 Flow Rate FiO2 11/04/17 10:42 101 14 30 11/04/17 10:23 98.8 11/04/17 10:00 101 14 138/75 (96) 99 11/04/17 09:55 100.5 100.5 11/04/17 09:53 100.5 11/04/17 09:40 100.3 100.3 11/04/17 09:02 117 143/79 11/04/17 09:00 106 14 132/71 (91) 99 11/04/17 08:36 109 14 30 11/04/17 08:00 111 11/04/17 08:00 30 11/04/17 08:00 111 14 148/80 (102) 100 11/04/17 08:00 Mechanical Ventilator 11/04/17 07:30 98.9 98.9 11/04/17 06:34 89 14 30 11/04/17 06:00 90 14 137/69 (91) 100 11/04/17 05:23 105 14 30 11/04/17 05:00 97 14 152/73 (99) 100 11/04/17 04:00 30 11/04/17 04:00 98.8 97 14 152/72 (98) 100 98.8 11/04/17 04:00 Mechanical Ventilator 11/04/17 04:00 108 11/04/17 03:41 94 14 Mechanical Ventilator 30 11/04/17 03:18 94 14 30 11/04/17 03:00 97 14 157/74 (101) 100 11/04/17 02:00 106 14 141/76 (97) 100 11/04/17 01:00 104 14 138/79 (98) 99 11/04/17 00:34 134 18 30 11/04/17 00:00 Mechanical Ventilator 11/04/17 00:00 99.8 104 16 145/79 (101) 98 99.8 11/04/17 00:00 30 11/04/17 00:00 104 11/03/17 23:04 103 15 30 11/03/17 23:00 108 16 148/78 (101) 98 11/03/17 22:19 100.9 11/03/17 22:00 110 16 160/80 (106) 98 11/03/17 21:19 108 148/89 11/03/17 21:04 107 14 30 11/03/17 21:00 111 15 138/88 (105) 98 11/03/17 20:00 Mechanical Ventilator 11/03/17 20:00 108 11/03/17 20:00 100.0 121 20 170/85 (113) 99 100.0 11/03/17 19:07 127 18 30 11/03/17 19:00 121 20 137/78 (97) 99 11/03/17 18:58 174/89 11/03/17 18:00 115 16 153/89 (110) 100 11/03/17 17:12 109 15 30 11/03/17 17:00 119 17 170/84 (112) 99 11/03/17 16:00 98.4 106 15 166/86 (112) 100 98.4 11/03/17 16:00 110 11/03/17 16:00 30 11/03/17 16:00 Mechanical Ventilator 11/03/17 15:14 109 14 30 11/03/17 15:00 106 14 153/78 (103) 99 11/03/17 14:13 181/85 11/03/17 14:00 107 14 181/85 (117) 99 11/03/17 13:09 101 14 30 11/03/17 13:00 112 15 153/75 (101) 99 11/03/17 12:00 30 11/03/17 12:00 103 11/03/17 12:00 99.6 103 14 146/82 (103) 99 99.6 11/03/17 12:00 Mechanical Ventilator 11/03/17 11:28 108 14 30 Intake and Output 11/03/17 11/04/17 19:00 07:00 Intake Total 2545.50 ml 1052 ml Output Total 1442 ml 764 ml Balance 1103.50 ml 288 ml Free Water 230 ml 200 ml IV Total 1775.50 ml 357 ml Tube Feeding 540 ml 495 ml Output Urine Total 1440 ml 760 ml Stool Total 2 ml 4 ml # Bowel Movements 1 3 Laboratory Tests Test 11/03/17 16:00 11/04/17 04:30 11/04/17 07:40 Stool Occult Blood Pending White Blood Count 12.2 K/UL (4.8-10.8) H Red Blood Count 3.53 M/UL (4.20-5.40) L Hemoglobin 10.3 G/DL (12.0-16.0) L Hematocrit 32.0 % (37.0-47.0) L Mean Corpuscular Volume 91 FL (80-99) Mean Corpuscular Hemoglobin 29.2 PG (27.0-31.0) Mean Corpuscular Hemoglobin Concent 32.2 G/DL (32.0-36.0) Red Cell Distribution Width 11.5 % (11.6-14.8) L Platelet Count 272 K/UL (150-450) Mean Platelet Volume 6.7 FL (6.5-10.1) Neutrophils (%) (Auto) 60.6 % (45.0-75.0) Lymphocytes (%) (Auto) 28.7 % (20.0-45.0) Monocytes (%) (Auto) 9.1 % (1.0-10.0) Eosinophils (%) (Auto) 0.7 % (0.0-3.0) Basophils (%) (Auto) 1.0 % (0.0-2.0) Sodium Level 143 MMOL/L (136-145) Potassium Level 2.6 MMOL/L (3.5-5.1) *L Chloride Level 106 MMOL/L (98-107) Carbon Dioxide Level 29 MMOL/L (21-32) Anion Gap 8 mmol/L (5-15) Blood Urea Nitrogen 12 mg/dL (7-18) Creatinine 0.7 MG/DL (0.55-1.30) Estimat Glomerular Filtration Rate > 60 mL/min (>60) Glucose Level 103 MG/DL (74-106) Calcium Level 8.4 MG/DL (8.5-10.1) L Phosphorus Level 3.1 MG/DL (2.5-4.9) Magnesium Level 1.9 MG/DL (1.8-2.4) Iron Level 69 ug/dL (50-175) Total Iron Binding Capacity 165 ug/dL (250-450) L Percent Iron Saturation 42 % (15-50) Unsaturated Iron Binding 96 ug/dL (112-346) L Total Bilirubin 0.2 MG/DL (0.2-1.0) Aspartate Amino Transf (AST/SGOT) 81 U/L (15-37) H Alanine Aminotransferase (ALT/SGPT) 100 U/L (12-78) H Alkaline Phosphatase 90 U/L (46-116) Total Protein 6.3 G/DL (6.4-8.2) L Albumin 2.3 G/DL (3.4-5.0) L Globulin 4.0 g/dL Albumin/Globulin Ratio 0.6 (1.0-2.7) L Hepatitis A IgM Antibody Pending Hepatitis B Surface Antigen Pending Hepatitis B Core IgM Antibody Pending Hepatitis C Antibody Pending Arterial Blood pH 7.480 (7.350-7.450) Arterial Blood Partial Pressure CO2 36.6 mmHg (35.0-45.0) Arterial Blood Partial Pressure O2 89.2 mmHg (75.0-100.0) Arterial Blood HCO3 27.1 mmol/L (22.0-26.0) H Arterial Blood Oxygen Saturation 96.9 % (92.0-98.0) Arterial Blood Base Excess 3.7 Aj Test Positive Height (Feet): 5 Height (Inches): 2.00 Weight (Pounds): 107 General Appearance: no apparent distress, lethargic Cardiovascular: normal rate Respiratory/Chest: other - intubated Abdominal Exam: other - OGT Risa Davenport [employer] Nov 04, 2017 11:23
--- NOTE | 2017-11-04 11:23 | General Progress Note ---
Progress Note Progress Note Surgery: thoravent removed CXR this AM stable. cont current care thank you Ho Man Nov 04, 2017 11:23
--- NOTE | 2017-11-04 12:08 | Diagnostic Imaging Report ---
Indication: Dyspnea Technique: One view of the chest Comparison: 11/03/2017 Findings: Stable satisfactory positions of endotracheal tube, nasogastric tube, right subclavian central venous catheter. Previously demonstrated right chest vent catheter has been removed. No evidence of recurrent pneumothorax. Slight bilateral diffuse interstitial prominence is stable Impression: Interim right chest vent catheter removal. Otherwise, little jacket changer one day, findings as noted
[2017-11-04] MEDS ORDERED: Potassium Chloride 40 MEQ in Sodium Chloride 500ML 550 ML IVPB SCH (13:00)
--- NOTE | 2017-11-04 13:29 | Infectious Diseases Prog Note ---
Assessment/Plan Assessment/Plan 57 yo female who presented to the ED on 10/30/17 after pulmonary arrest. Sepsis - Probable Asp PNA On Abx 10/30 Sputum Cultures - Predominantly NF - +1 Steno Will hold off Tx of Steno as patient improving 10/31 Urine Cx - NGTD Leukocytosis - WBCs 16 after seizure No Fevers Seizures - Had Seizure on route to ED 10/30/17 and in the ICU as well Drug abuse - Pos for cocaine Arthritis Chronic pain. P: - Start Levofloxacin - To cover Stenotrophomonas as she had new fevers - D/C Ceftriaxone #3 - Continue Flagyl #4 for asp PNA and UTI - 10/31 Vancomycin #1 - 10/31 Aztreonam - 10/30 SP Ceftriaxone - Monitor CBC and Temps - Vent management per pulm - Poor prognosis We will continue to follow the patient during this hospitalization. Subjective Allergies: Coded Allergies: ASPIRIN (Verified Allergy, Unknown, 10/30/17) PENICILLINS (Verified Allergy, Unknown, 10/30/17) UNABLE TO ASSESS (Unverified , 10/29/17) Subjective Patient intubated off sedations Afebrile On 30% FiO2 Objective Vital Signs Last 24 Hour Vital Signs Date Time Temp Pulse Resp B/P (MAP) Pulse Ox O2 Delivery O2 Flow Rate FiO2 11/04/17 12:34 80 14 30 11/04/17 12:00 Mechanical Ventilator 11/04/17 12:00 30 11/04/17 10:42 101 14 30 11/04/17 10:23 98.8 11/04/17 10:00 101 14 138/75 (96) 99 11/04/17 09:55 100.5 100.5 11/04/17 09:53 100.5 11/04/17 09:40 100.3 100.3 11/04/17 09:02 117 143/79 11/04/17 09:00 106 14 132/71 (91) 99 11/04/17 08:36 109 14 30 11/04/17 08:00 111 11/04/17 08:00 30 11/04/17 08:00 111 14 148/80 (102) 100 11/04/17 08:00 Mechanical Ventilator 11/04/17 07:30 98.9 98.9 11/04/17 06:34 89 14 30 9/14/18 06:00 90 14 137/69 (91) 100 11/04/17 05:23 105 14 30 11/04/17 05:00 97 14 152/73 (99) 100 11/04/17 04:00 30 11/04/17 04:00 98.8 97 14 152/72 (98) 100 98.8 11/04/17 04:00 Mechanical Ventilator 11/04/17 04:00 108 11/04/17 03:41 94 14 Mechanical Ventilator 30 11/04/17 03:18 94 14 30 11/04/17 03:00 97 14 157/74 (101) 100 11/04/17 02:00 106 14 141/76 (97) 100 11/04/17 01:00 104 14 138/79 (98) 99 11/04/17 00:34 134 18 30 11/04/17 00:00 Mechanical Ventilator 11/04/17 00:00 99.8 104 16 145/79 (101) 98 99.8 11/04/17 00:00 30 11/04/17 00:00 104 11/03/17 23:04 103 15 30 11/03/17 23:00 108 16 148/78 (101) 98 11/03/17 22:19 100.9 11/03/17 22:00 110 16 160/80 (106) 98 11/03/17 21:19 108 148/89 11/03/17 21:04 107 14 30 11/03/17 21:00 111 15 138/88 (105) 98 11/03/17 20:00 Mechanical Ventilator 11/03/17 20:00 108 11/03/17 20:00 100.0 121 20 170/85 (113) 99 100.0 11/03/17 19:07 127 18 30 11/03/17 19:00 121 20 137/78 (97) 99 11/03/17 18:58 174/89 11/03/17 18:00 115 16 153/89 (110) 100 11/03/17 17:12 109 15 30 11/03/17 17:00 119 17 170/84 (112) 99 11/03/17 16:00 98.4 106 15 166/86 (112) 100 98.4 11/03/17 16:00 110 11/03/17 16:00 30 11/03/17 16:00 Mechanical Ventilator 11/03/17 15:14 109 14 30 11/03/17 15:00 106 14 153/78 (103) 99 11/03/17 14:13 181/85 11/03/17 14:00 107 14 181/85 (117) 99 Height (Feet): 5 Height (Inches): 2.00 Weight (Pounds): 107 Objective Gen: NAD, intubated on Vent 30% O2 HEENT: NCAT, MMM, No observed pupillary constriction to light. No Oral lesion, no scleral icterus, Missing multiple teeth LUNGS: Mechanical breath sounds CARDS: RRR, S1, S2, No M/R/G, ABD: Soft, NT, ND, No R/G, + BS NEURO: Pupils constricted B/L and sluggish, Not responsive Laboratory Tests Test 11/03/17 16:00 11/04/17 04:30 11/04/17 07:40 Stool Occult Blood Negative (NEGATIVE) White Blood Count 12.2 K/UL (4.8-10.8) H Red Blood Count 3.53 M/UL (4.20-5.40) L Hemoglobin 10.3 G/DL (12.0-16.0) L Hematocrit 32.0 % (37.0-47.0) L Mean Corpuscular Volume 91 FL (80-99) Mean Corpuscular Hemoglobin 29.2 PG (27.0-31.0) Mean Corpuscular Hemoglobin Concent 32.2 G/DL (32.0-36.0) Red Cell Distribution Width 11.5 % (11.6-14.8) L Platelet Count 272 K/UL (150-450) Mean Platelet Volume 6.7 FL (6.5-10.1) Neutrophils (%) (Auto) 60.6 % (45.0-75.0) Lymphocytes (%) (Auto) 28.7 % (20.0-45.0) Monocytes (%) (Auto) 9.1 % (1.0-10.0) Eosinophils (%) (Auto) 0.7 % (0.0-3.0) Basophils (%) (Auto) 1.0 % (0.0-2.0) Sodium Level 143 MMOL/L (136-145) Potassium Level 2.6 MMOL/L (3.5-5.1) *L Chloride Level 106 MMOL/L (98-107) Carbon Dioxide Level 29 MMOL/L (21-32) Anion Gap 8 mmol/L (5-15) Blood Urea Nitrogen 12 mg/dL (7-18) Creatinine 0.7 MG/DL (0.55-1.30) Estimat Glomerular Filtration Rate > 60 mL/min (>60) Glucose Level 103 MG/DL (74-106) Calcium Level 8.4 MG/DL (8.5-10.1) L Phosphorus Level 3.1 MG/DL (2.5-4.9) Magnesium Level 1.9 MG/DL (1.8-2.4) Iron Level 69 ug/dL (50-175) Total Iron Binding Capacity 165 ug/dL (250-450) L Percent Iron Saturation 42 % (15-50) Unsaturated Iron Binding 96 ug/dL (112-346) L Total Bilirubin 0.2 MG/DL (0.2-1.0) Aspartate Amino Transf (AST/SGOT) 81 U/L (15-37) H Alanine Aminotransferase (ALT/SGPT) 100 U/L (12-78) H Alkaline Phosphatase 90 U/L (46-116) Total Protein 6.3 G/DL (6.4-8.2) L Albumin 2.3 G/DL (3.4-5.0) L Globulin 4.0 g/dL Albumin/Globulin Ratio 0.6 (1.0-2.7) L Hepatitis A IgM Antibody Pending Hepatitis B Surface Antigen Pending Hepatitis B Core IgM Antibody Pending Hepatitis C Antibody Pending Arterial Blood pH 7.480 (7.350-7.450) Arterial Blood Partial Pressure CO2 36.6 mmHg (35.0-45.0) Arterial Blood Partial Pressure O2 89.2 mmHg (75.0-100.0) Arterial Blood HCO3 27.1 mmol/L (22.0-26.0) H Arterial Blood Oxygen Saturation 96.9 % (92.0-98.0) Arterial Blood Base Excess 3.7 Ja Test Positive Current Medications Medications (Trade) Dose Ordered Sig/Yung Route PRN Reason Start Time Stop Time Status Last Admin Dose Admin Acetaminophen (Tylenol) 650 mg Q4H PRN RECTAL Prn Headache/Temp > 101 10/30/17 16:45 11/29/17 16:44 10/31/17 21:24 Acetaminophen (Tylenol) 650 mg Q6H PRN NG Mild Pain/Temp > 100.5 11/03/17 22:00 12/03/17 21:59 11/04/17 09:53 Ceftriaxone Sodium 1 gm/ Dextrose 55 ml @ 110 mls/hr Q24H IVPB 10/31/17 14:00 11/07/17 13:59 11/03/17 14:58 Chlorhexidine Gluconate (Sunita-Hex 2%) 1 applic DAILY@2000 TOPIC 10/30/17 20:00 11/29/17 19:59 11/03/17 20:20 Clonidine HCl (Catapres Tab) 0.1 mg Q4H PRN ORAL for SBP >160 11/01/17 13:00 12/01/17 12:59 11/03/17 18:58 Dextrose (Dextrose 50%) 25 ml STAT PRN IV Hypoglycemia 11/03/17 18:00 12/03/17 17:59 Dextrose (Dextrose 50%) 50 ml STAT PRN IV Hypoglycemia 11/03/17 18:00 12/03/17 17:59 Diltiazem HCl (Cardizem) 30 mg EVERY 12 HOURS NG 11/03/17 21:10 12/03/17 21:09 11/04/17 09:02 Haloperidol Lactate 5 mg/ Dextrose 56 ml @ 112 mls/hr Q1H PRN IVPB Agitation 11/02/17 10:00 12/02/17 09:59 11/02/17 12:53 Heparin Sodium (Porcine) (Heparin 5000 units/ml) 5,000 units EVERY 12 HOURS SUBQ 10/30/17 09:00 11/29/17 08:59 11/04/17 10:02 Hydrocortisone (Solu-CORTEF) 50 mg DAILY IV 11/03/17 09:00 11/30/17 18:29 11/04/17 09:02 Insulin Aspart (NovoLOG) Q4HR SUBQ 11/03/17 20:00 12/03/17 19:59 11/04/17 12:37 Levetiracetam 100 ml @ 400 mls/hr Q8H IVPB 10/30/17 17:00 11/29/17 16:59 11/04/17 09:01 Metronidazole 100 ml @ 100 mls/hr Q8H IVPB 10/30/17 11:00 11/06/17 10:59 11/04/17 10:58 Morphine Sulfate (Morphine Sulfate) 4 mg Q4H PRN IVP Severe Pain (Pain Scale 7-10) 10/30/17 08:00 11/06/17 07:59 11/04/17 07:19 Nitroglycerin (Ntg) 0.4 mg Q5M PRN SL Prn Chest Pain 10/30/17 08:00 11/29/17 07:59 Ondansetron HCl (Zofran) 4 mg Q6H PRN IVP Nausea & Vomiting 10/30/17 08:00 11/29/17 07:59 Pantoprazole (Protonix) 40 mg DAILY IVP 11/02/17 09:00 12/02/17 08:59 11/04/17 09:02 Phenytoin 100 mg/ Sodium Chloride 57 ml @ 114 mls/hr [id number] PHENYTOIN IVPB 10/30/17 16:00 11/29/17 15:59 11/04/17 09:03 Potassium Chloride 40 meq/ Sodium Chloride 570 ml @ 142.5 mls/ hr ONCE IVPB 11/04/17 13:00 11/04/17 17:00 11/04/17 12:38 Gutierrez Sifuentes MD Nov 04, 2017 13:29
--- NOTE | 2017-11-04 14:08 | General Progress Note ---
Assessment/Plan Problem List: (1) Renal insufficiency ICD Codes: N28.9 - Disorder of kidney and ureter, unspecified SNOMED: 598385037, 182055049 (2) UTI (urinary tract infection) ICD Codes: N39.0 - Urinary tract infection, site not specified SNOMED: 39749576 (3) Seizure ICD Codes: R56.9 - Unspecified convulsions SNOMED: 07927552 (4) HTN (hypertension) ICD Codes: I10 - Essential (primary) hypertension SNOMED: 45009512 (5) Diabetes ICD Codes: E11.9 - Type 2 diabetes mellitus without complications SNOMED: 29891906 Status: unchanged Assessment/Plan vent abx detox neph f/u cbc bmp am Subjective Constitutional: Reports: weakness Allergies: Coded Allergies: ASPIRIN (Verified Allergy, Unknown, 10/30/17) PENICILLINS (Verified Allergy, Unknown, 10/30/17) UNABLE TO ASSESS (Unverified , 10/29/17) All Systems: reviewed and negative except above Subjective intubated sedated in icu Objective Last 24 Hour Vital Signs Date Time Temp Pulse Resp B/P (MAP) Pulse Ox O2 Delivery O2 Flow Rate FiO2 11/04/17 12:34 80 14 30 11/04/17 12:00 Mechanical Ventilator 11/04/17 12:00 30 11/04/17 10:42 101 14 30 11/04/17 10:23 98.8 11/04/17 10:00 101 14 138/75 (96) 99 11/04/17 09:55 100.5 100.5 11/04/17 09:53 100.5 11/04/17 09:40 100.3 100.3 11/04/17 09:02 117 143/79 11/04/17 09:00 106 14 132/71 (91) 99 11/04/17 08:36 109 14 30 11/04/17 08:00 111 11/04/17 08:00 30 11/04/17 08:00 111 14 148/80 (102) 100 11/04/17 08:00 Mechanical Ventilator 11/04/17 07:30 98.9 98.9 11/04/17 06:34 89 14 30 11/04/17 06:00 90 14 137/69 (91) 100 11/04/17 05:23 105 14 30 11/04/17 05:00 97 14 152/73 (99) 100 11/04/17 04:00 30 11/04/17 04:00 98.8 97 14 152/72 (98) 100 98.8 11/04/17 04:00 Mechanical Ventilator 11/04/17 04:00 108 11/04/17 03:41 94 14 Mechanical Ventilator 30 11/04/17 03:18 94 14 30 11/04/17 03:00 97 14 157/74 (101) 100 11/04/17 02:00 106 14 141/76 (97) 100 11/04/17 01:00 104 14 138/79 (98) 99 11/04/17 00:34 134 18 30 11/04/17 00:00 Mechanical Ventilator 11/04/17 00:00 99.8 104 16 145/79 (101) 98 99.8 11/04/17 00:00 30 11/04/17 00:00 104 11/03/17 23:04 103 15 30 11/03/17 23:00 108 16 148/78 (101) 98 11/03/17 22:19 100.9 11/03/17 22:00 110 16 160/80 (106) 98 11/03/17 21:19 108 148/89 11/03/17 21:04 107 14 30 11/03/17 21:00 111 15 138/88 (105) 98 11/03/17 20:00 Mechanical Ventilator 11/03/17 20:00 108 11/03/17 20:00 100.0 121 20 170/85 (113) 99 100.0 11/03/17 19:07 127 18 30 11/03/17 19:00 121 20 137/78 (97) 99 11/03/17 18:58 174/89 11/03/17 18:00 115 16 153/89 (110) 100 11/03/17 17:12 109 15 30 11/03/17 17:00 119 17 170/84 (112) 99 11/03/17 16:00 98.4 106 15 166/86 (112) 100 98.4 11/03/17 16:00 110 11/03/17 16:00 30 11/03/17 16:00 Mechanical Ventilator 11/03/17 15:14 109 14 30 11/03/17 15:00 106 14 153/78 (103) 99 11/03/17 14:13 181/85 Intake and Output 11/03/17 11/04/17 19:00 07:00 Intake Total 2545.50 ml 1052 ml Output Total 1442 ml 764 ml Balance 1103.50 ml 288 ml Free Water 230 ml 200 ml IV Total 1775.50 ml 357 ml Tube Feeding 540 ml 495 ml Output Urine Total 1440 ml 760 ml Stool Total 2 ml 4 ml # Bowel Movements 1 3 Laboratory Tests 11/03/17 16:00: Stool Occult Blood Negative 11/04/17 04:30: White Blood Count 12.2H, Red Blood Count 3.53L, Hemoglobin 10.3L, Hematocrit 32.0L, Mean Corpuscular Volume 91, Mean Corpuscular Hemoglobin 29.2, Mean Corpuscular Hemoglobin Concent 32.2, Red Cell Distribution Width 11.5L, Platelet Count 272, Mean Platelet Volume 6.7, Neutrophils (%) (Auto) 60.6, Lymphocytes (%) (Auto) 28.7, Monocytes (%) (Auto) 9.1, Eosinophils (%) (Auto) 0.7, Basophils (%) (Auto) 1.0, Sodium Level 143, Potassium Level 2.6*L, Chloride Level 106, Carbon Dioxide Level 29, Anion Gap 8, Blood Urea Nitrogen 12 , Creatinine 0.7, Estimat Glomerular Filtration Rate > 60, Glucose Level 103, Calcium Level 8.4L, Phosphorus Level 3.1, Magnesium Level 1.9, Iron Level 69, Total Iron Binding Capacity 165L, Percent Iron Saturation 42, Unsaturated Iron Binding 96L, Total Bilirubin 0.2, Aspartate Amino Transf (AST/SGOT) 81H, Alanine Aminotransferase (ALT/SGPT) 100H, Alkaline Phosphatase 90, Total Protein 6.3L, Albumin 2.3L, Globulin 4.0, Albumin/Globulin Ratio 0.6L, Hepatitis A IgM Antibody [Pending], Hepatitis B Surface Antigen [Pending], Hepatitis B Core IgM Antibody [Pending], Hepatitis C Antibody [Pending] 11/04/17 07:40: Arterial Blood pH 7.480H, Arterial Blood Partial Pressure CO2 36.6, Arterial Blood Partial Pressure O2 89.2, Arterial Blood HCO3 27.1H, Arterial Blood Oxygen Saturation 96.9, Arterial Blood Base Excess 3.7, Aj Test Positive Height (Feet): 5 Height (Inches): 2.00 Weight (Pounds): 107 General Appearance: lethargic EENT: normal ENT inspection Neck: normal alignment Cardiovascular: normal peripheral pulses, normal rate, regular rhythm Respiratory/Chest: chest wall non-tender, decreased breath sounds Abdomen: normal bowel sounds, non tender, soft Extremities: normal inspection Edema: no edema noted Arm (L), no edema noted Arm (R), no edema noted Leg (L), no edema noted Leg (R), no edema noted Pedal (L), no edema noted Pedal (R), no edema noted Generalized Neurologic: motor weakness Skin: normal pigmentation, warm/dry Josias Skinner DO Nov 04, 2017 14:08
--- NOTE | 2017-11-04 14:32 | Neurology Progress Note ---
Interim History Interim History Interim History Ms. Robertson continues to be in a comatose state. She does however exhibit spontaneous eye opening and closing. She is still exhibiting decerebrate posturing. She has had no seizures or seizure like phenomena. She continues to be artificially ventilated. There has been no improvement in her neurologic state. Review of Systems Neuro Review of Systems Unable to obtain. Objective Physical Exam Last Vital Signs Date Time Temp Pulse Resp B/P (MAP) Pulse Ox O2 Delivery O2 Flow Rate FiO2 11/04/17 12:34 80 14 30 11/04/17 12:00 Mechanical Ventilator 11/04/17 11:00 98.8 132/70 (90) 100 98.8 Laboratory Tests Test 11/03/17 16:00 11/04/17 04:30 11/04/17 07:40 Stool Occult Blood Negative (NEGATIVE) White Blood Count 12.2 K/UL (4.8-10.8) H Red Blood Count 3.53 M/UL (4.20-5.40) L Hemoglobin 10.3 G/DL (12.0-16.0) L Hematocrit 32.0 % (37.0-47.0) L Mean Corpuscular Volume 91 FL (80-99) Mean Corpuscular Hemoglobin 29.2 PG (27.0-31.0) Mean Corpuscular Hemoglobin Concent 32.2 G/DL (32.0-36.0) Red Cell Distribution Width 11.5 % (11.6-14.8) L Platelet Count 272 K/UL (150-450) Mean Platelet Volume 6.7 FL (6.5-10.1) Neutrophils (%) (Auto) 60.6 % (45.0-75.0) Lymphocytes (%) (Auto) 28.7 % (20.0-45.0) Monocytes (%) (Auto) 9.1 % (1.0-10.0) Eosinophils (%) (Auto) 0.7 % (0.0-3.0) Basophils (%) (Auto) 1.0 % (0.0-2.0) Sodium Level 143 MMOL/L (136-145) Potassium Level 2.6 MMOL/L (3.5-5.1) *L Chloride Level 106 MMOL/L (98-107) Carbon Dioxide Level 29 MMOL/L (21-32) Anion Gap 8 mmol/L (5-15) Blood Urea Nitrogen 12 mg/dL (7-18) Creatinine 0.7 MG/DL (0.55-1.30) Estimat Glomerular Filtration Rate > 60 mL/min (>60) Glucose Level 103 MG/DL (74-106) Calcium Level 8.4 MG/DL (8.5-10.1) L Phosphorus Level 3.1 MG/DL (2.5-4.9) Magnesium Level 1.9 MG/DL (1.8-2.4) Iron Level 69 ug/dL (50-175) Total Iron Binding Capacity 165 ug/dL (250-450) L Percent Iron Saturation 42 % (15-50) Unsaturated Iron Binding 96 ug/dL (112-346) L Total Bilirubin 0.2 MG/DL (0.2-1.0) Aspartate Amino Transf (AST/SGOT) 81 U/L (15-37) H Alanine Aminotransferase (ALT/SGPT) 100 U/L (12-78) H Alkaline Phosphatase 90 U/L (46-116) Total Protein 6.3 G/DL (6.4-8.2) L Albumin 2.3 G/DL (3.4-5.0) L Globulin 4.0 g/dL Albumin/Globulin Ratio 0.6 (1.0-2.7) L Hepatitis A IgM Antibody Pending Hepatitis B Surface Antigen Pending Hepatitis B Core IgM Antibody Pending Hepatitis C Antibody Pending Arterial Blood pH 7.480 (7.350-7.450) Arterial Blood Partial Pressure CO2 36.6 mmHg (35.0-45.0) Arterial Blood Partial Pressure O2 89.2 mmHg (75.0-100.0) Arterial Blood HCO3 27.1 mmol/L (22.0-26.0) H Arterial Blood Oxygen Saturation 96.9 % (92.0-98.0) Arterial Blood Base Excess 3.7 Aj Test Positive Neurologic Exam Objective PHYSICAL EXAMINATION: GENERAL: She is a well-developed, cachectic, lean, black lady, lying in an ICU bed, in no acute distress, connected to a ventilator via an orotracheal tube. HEAD: Normocephalic and atraumatic. EENT: Examination benign. NECK: No neck rigidity was observed. NEUROLOGIC EXAMINATION: MENTAL STATUS EXAMINATION: She was comatose and only responded to deep painful stimuli with decerebration in the upper extremities. Further mental status testing was impossible. SPEECH: Could not be tested. LANGUAGE: Could not be tested. CRANIAL NERVE EXAMINATION: II: She did not blink to threat. III, IV & : The external ocular movements were present on oculocephalic maneuvers. The pupils were 3 mm in diameter and reactive sluggishly to light. V & VII: The corneal reflexes were present, but significantly diminished. VIII: She did not respond to sounds and had no nystagmus. IX & X: The gag reflex was absent on manipulating the endotracheal tube. XI: The sternocleidomastoids and trapezii could not be tested. XII: Could not be tested. MOTOR SYSTEM: The tone was increased in all four extremities with severe spasticity. Examination of muscle mass revealed generalized muscle wasting. Examination of power was impossible to perform because even on applying deep painful stimuli, no purposeful movements were seen. SENSORY EXAMINATION: She responded to deep pain with decerebration. REFLEXES: 1+ and bilaterally symmetrical at the biceps, triceps, brachioradialis , and knees. 0 at both ankles. The plantar responses were extensor bilaterally. COORDINATION, STANCE & GAIT: Could not be tested. Impression/Recommendations Diagnostic Impression 1. Ms. Polly Robertson is a 57-year-old, right-handed, black lady, who does have a past history of polysubstance abuse with her recent drug of choice being cocaine, a seizure disorder, and chronic pain, who was found down in her bathroom at home with vomitus in her mouth. She then was noted to stop breathing and this progressed to cardiac failure. The paramedics were called in and she had to have advanced cardiac life support before she could be resuscitated. She was then transported to the [facility] emergency room and on the way here she was noted to have a generalized seizure. Since then, she has had multiple seizures, however, at this point in time, they are well controlled on the present regimen. 2. She continues to be in a comatose state. She does however exhibit spontaneous eye opening and closing. She is still exhibiting decerebrate posturing. She has had no seizures or seizure like phenomena. She continues to be artificially ventilated. There has been no improvement in her neurologic state. 3. On neurological examination, at this time, she is comatose and only responds to deep pain with decerebration. She however does not demonstrate any focal or lateralizing findings. 4. The CT scan of the brain without contrast is benign for acute pathology. 5. Her latest laboratory data on my initial evaluation revealed that her WBC count was elevated to 17,600 with predominantly 79% being neutrophils and 15% being lymphocytes and monocytes. Her arterial blood gas revealed pCO2 low at 21.2, pO2 at 154, and pH of 7.49. Her chemistry panel revealed a creatinine elevated to 1.7. Her AST was elevated at 255, ALT elevated at 251, and alkaline phosphatase elevated at 142. Her albumin was low at 2.9. Her Urinalysis revealed 1+ leukocyte esterase, 20- 30 red blood cells, and 5-10 white blood cells per high-power field. The urine toxicology screen was positive for cocaine. 6. Her EEG done on 10/31/17 revealed a severe encephalopathy and bilateral frontal epileptogenic foci with inter-ictal discharges at time with a large field. 7. The patient's history, neurological examination, laboratory data and imaging studies are most compatible with seizures due to a hypoxic/ischemic cerebral insult and/or cocaine intoxication. 8. The prognosis for recovery of cerebral function is dismal. Recommendations 1. Continue present management. 2. Continue to treat the patient's infectious process vigorously. 3. Continue Dilantin 100 mg intravenously q.8 h. 4. Continue Keppra 1 G intravenously every 8 hours. 5. In light of her poor prognosis make decision regarding intensity of care. Denisse Lester M.D., M.S.[facility].H. DENISSE LESTER Nov 04, 2017 14:32
[2017-11-04] MEDS: Dyna-Hex 2% Top Sol 2oz TOPIC SCH (20:04)
--- NOTE | 2017-11-04 23:40 | Cardiology Progress Note ---
Assessment/Plan Assessment/Plan 1. Sinus tachycardia. This could be secondary to cocaine intoxication or aspiration pneumonia/sepsis. Echo reveals normal left ventricular systolic function with LVEF of approximately 55%. Increase diltiazem to 30mg po tid. 2. Acute hypoxemia respiratory failure, emergence of small right pneumothorax. 3. Mild pulmonary hypertension with right ventricular systolic pressure measured at 42 mmHg. 4. Seizure disorder 5. Polysubstance abuse. Subjective Subjective Sinus tachycardia at 118. Intubated. Objective Last 24 Hour Vital Signs Date Time Temp Pulse Resp B/P (MAP) Pulse Ox O2 Delivery O2 Flow Rate FiO2 11/04/17 23:31 166/77 11/04/17 23:09 118 18 30 11/04/17 22:00 115 17 166/77 (106) 99 11/04/17 21:12 126 171/88 11/04/17 21:05 115 15 30 11/04/17 21:00 112 17 150/81 (104) 99 11/04/17 20:00 Mechanical Ventilator 11/04/17 20:00 99.0 112 17 150/81 (104) 97 99.0 11/04/17 20:00 112 11/04/17 20:00 30 11/04/17 19:15 111 15 30 11/04/17 19:00 98.8 113 15 140/83 (102) 97 98.8 11/04/17 18:00 112 15 193/98 (129) 97 11/04/17 17:55 98.8 11/04/17 17:25 101.0 11/04/17 17:00 101.1 119 17 164/85 (111) 99 101.1 11/04/17 16:50 120 17 30 11/04/17 16:00 30 11/04/17 16:00 121 20 156/91 (112) 100 11/04/17 16:00 129 11/04/17 16:00 Mechanical Ventilator 11/04/17 15:00 83 14 123/71 (88) 100 11/04/17 14:47 80 14 30 11/04/17 14:00 81 14 116/65 (82) 98 11/04/17 13:00 83 14 116/66 (83) 98 11/04/17 12:34 80 14 30 11/04/17 12:00 Mechanical Ventilator 11/04/17 12:00 30 11/04/17 12:00 86 11/04/17 12:00 97.6 89 14 107/65 (79) 100 97.6 11/04/17 11:00 98.8 105 14 132/70 (90) 100 98.8 11/04/17 10:42 101 14 30 11/04/17 10:00 101 14 138/75 (96) 99 11/04/17 09:55 100.5 100.5 11/04/17 09:53 100.5 11/04/17 09:40 100.3 100.3 11/04/17 09:02 117 143/79 11/04/17 09:00 106 14 132/71 (91) 99 11/04/17 08:36 109 14 30 11/04/17 08:00 111 11/04/17 08:00 30 11/04/17 08:00 111 14 148/80 (102) 100 11/04/17 08:00 Mechanical Ventilator 11/04/17 07:30 98.9 98.9 11/04/17 06:34 89 14 30 11/04/17 06:00 90 14 137/69 (91) 100 11/04/17 05:23 105 14 30 11/04/17 05:00 97 14 152/73 (99) 100 11/04/17 04:00 30 11/04/17 04:00 98.8 97 14 152/72 (98) 100 98.8 11/04/17 04:00 Mechanical Ventilator 11/04/17 04:00 108 11/04/17 03:41 94 14 Mechanical Ventilator 30 11/04/17 03:18 94 14 30 11/04/17 03:00 97 14 157/74 (101) 100 11/04/17 02:00 106 14 141/76 (97) 100 11/04/17 01:00 104 14 138/79 (98) 99 11/04/17 00:34 134 18 30 11/04/17 00:00 Mechanical Ventilator 11/04/17 00:00 99.8 104 16 145/79 (101) 98 99.8 11/04/17 00:00 30 11/04/17 00:00 104 Intake and Output 11/03/17 11/04/17 19:00 07:00 Intake Total 2545.50 ml 1052 ml Output Total 1442 ml 764 ml Balance 1103.50 ml 288 ml Free Water 230 ml 200 ml IV Total 1775.50 ml 357 ml Tube Feeding 540 ml 495 ml Output Urine Total 1440 ml 760 ml Stool Total 2 ml 4 ml # Bowel Movements 1 3 2D Echo: EF 60-65%, mild LVH, Mild AR, normal LVDD, RVSP 42 mmHg Laboratory Tests Test 11/04/17 04:30 11/04/17 07:40 11/04/17 18:20 White Blood Count 12.2 K/UL (4.8-10.8) H Red Blood Count 3.53 M/UL (4.20-5.40) L Hemoglobin 10.3 G/DL (12.0-16.0) L Hematocrit 32.0 % (37.0-47.0) L Mean Corpuscular Volume 91 FL (80-99) Mean Corpuscular Hemoglobin 29.2 PG (27.0-31.0) Mean Corpuscular Hemoglobin Concent 32.2 G/DL (32.0-36.0) Red Cell Distribution Width 11.5 % (11.6-14.8) L Platelet Count 272 K/UL (150-450) Mean Platelet Volume 6.7 FL (6.5-10.1) Neutrophils (%) (Auto) 60.6 % (45.0-75.0) Lymphocytes (%) (Auto) 28.7 % (20.0-45.0) Monocytes (%) (Auto) 9.1 % (1.0-10.0) Eosinophils (%) (Auto) 0.7 % (0.0-3.0) Basophils (%) (Auto) 1.0 % (0.0-2.0) Sodium Level 143 MMOL/L (136-145) Potassium Level 2.6 MMOL/L (3.5-5.1) *L 3.8 MMOL/L (3.5-5.1) Chloride Level 106 MMOL/L (98-107) Carbon Dioxide Level 29 MMOL/L (21-32) Anion Gap 8 mmol/L (5-15) Blood Urea Nitrogen 12 mg/dL (7-18) Creatinine 0.7 MG/DL (0.55-1.30) Estimat Glomerular Filtration Rate > 60 mL/min (>60) Glucose Level 103 MG/DL (74-106) Calcium Level 8.4 MG/DL (8.5-10.1) L Phosphorus Level 3.1 MG/DL (2.5-4.9) Magnesium Level 1.9 MG/DL (1.8-2.4) Iron Level 69 ug/dL (50-175) Total Iron Binding Capacity 165 ug/dL (250-450) L Percent Iron Saturation 42 % (15-50) Unsaturated Iron Binding 96 ug/dL (112-346) L Total Bilirubin 0.2 MG/DL (0.2-1.0) Aspartate Amino Transf (AST/SGOT) 81 U/L (15-37) H Alanine Aminotransferase (ALT/SGPT) 100 U/L (12-78) H Alkaline Phosphatase 90 U/L (46-116) Total Protein 6.3 G/DL (6.4-8.2) L Albumin 2.3 G/DL (3.4-5.0) L Globulin 4.0 g/dL Albumin/Globulin Ratio 0.6 (1.0-2.7) L Hepatitis A IgM Antibody Pending Hepatitis B Surface Antigen Pending Hepatitis B Core IgM Antibody Pending Hepatitis C Antibody Pending Arterial Blood pH 7.480 (7.350-7.450) Arterial Blood Partial Pressure CO2 36.6 mmHg (35.0-45.0) Arterial Blood Partial Pressure O2 89.2 mmHg (75.0-100.0) Arterial Blood HCO3 27.1 mmol/L (22.0-26.0) H Arterial Blood Oxygen Saturation 96.9 % (92.0-98.0) Arterial Blood Base Excess 3.7 Aj Test Positive Objective HEENT: Atraumatic and normocephalic. Anicteric. Pupils are equal, round, and reactive to light and accommodation. NECK: JVP cannot be assessed due to intubation. CARDIOVASCULAR: Normal S1, S2. Tachycardic. No murmurs, gallops, or rubs. LUNGS: Diminished breath sounds in both bases. ABDOMEN: Soft, nontender, and nondistended. Positive bowel sounds. EXTREMITIES: No evidence of edema, clubbing, or cyanosis. Geovany Brown MD Nov 04, 2017 23:40
[2017-11-05] VITALS (23 sets, daily range): BP systolic 123–185; BP diastolic 71–106
[2017-11-05] MEDS: Acetaminophen 650mg/20.3ml NG PRN ×3 (00:22→19:09)
[2017-11-05] MEDS: Phenytoin 100 MG in NS 55 ML IVPB SCH ×4 (00:22→23:14)
[2017-11-05] MEDS: levETIRAcetam 1,000mg/NS100ml 100 ML IVPB SCH ×3 (00:31→16:07)
[2017-11-05] MEDS: NovoLOG Insulin Flexpen SUBQ SCH ×6 (00:50→21:00)
[2017-11-05 06:03] LABS: BASOPHILS % (AUTO) 0.9 % (0.0-2.0); EOSINOPHILS % (AUTO) 0.4 % (0.0-3.0); HEMATOCRIT 33.2 % (37.0-47.0); HEMOGLOBIN 11.1 G/DL (12.0-16.0); MEAN CORPUSCULAR VOLUME 91 FL (80-99); MONOCYTES % (AUTO) 7.3 % (1.0-10.0); NEUTROPHILS % (AUTO) 69.5 % (45.0-75.0); PLATELET COUNT 286 K/UL (150-450); RED BLOOD COUNT 3.63 M/UL (4.20-5.40); WHITE BLOOD COUNT 16.7 K/UL (4.8-10.8)
[2017-11-05] MEDS: dilTIAZem HCl 30mg tab NG SCH ×2 (06:13→14:00)
[2017-11-05 06:24] LABS: ALANINE AMINOTRANSFERASE 93 U/L (12-78); ALBUMIN 2.5 G/DL (3.4-5.0); ALBUMIN/GLOBULIN RATIO 0.6 (1.0-2.7); ALKALINE PHOSPHATASE 95 U/L (46-116); ANION GAP 8 mmol/L (5-15); ASPARTATE AMINO TRANSFERASE 65 U/L (15-37); BILIRUBIN,TOTAL 0.2 MG/DL (0.2-1.0); BLOOD UREA NITROGEN 17 mg/dL (7-18); CARBON DIOXIDE 28 MMOL/L (21-32); CHLORIDE 108 MMOL/L (98-107); CREATININE 0.8 MG/DL (0.55-1.30); PHOSPHORUS 2.6 MG/DL (2.5-4.9); POTASSIUM 3.4 MMOL/L (3.5-5.1); SODIUM 143 MMOL/L (136-145)
[2017-11-05] MEDS: Morphine Sulfate 4mg/ml Inj (IV USE ONLY) IVP PRN ×2 (06:45→23:10)
--- NOTE | 2017-11-05 07:29 | General Progress Note ---
Assessment/Plan Problem List: (1) Elevated transaminase measurement ICD Codes: R74.0 - Nonspecific elevation of levels of transaminase and lactic acid dehydrogenase [LDH] SNOMED: 231829536, 792135942 (2) Cocaine abuse ICD Codes: F14.10 - Cocaine abuse, uncomplicated SNOMED: 99165760 (3) Respiratory arrest ICD Codes: R09.2 - Respiratory arrest SNOMED: 92110516 (4) Diabetes ICD Codes: E11.9 - Type 2 diabetes mellitus without complications SNOMED: 32368357 Assessment/Plan resolving LFTS elevation NGTF fu labs supportive care Subjective ROS Limited/Unobtainable: No Allergies: Coded Allergies: ASPIRIN (Verified Allergy, Unknown, 10/30/17) PENICILLINS (Verified Allergy, Unknown, 10/30/17) UNABLE TO ASSESS (Unverified , 10/29/17) Objective Last 24 Hour Vital Signs Date Time Temp Pulse Resp B/P (MAP) Pulse Ox O2 Delivery O2 Flow Rate FiO2 11/05/17 07:23 114 15 30 11/05/17 06:13 120 186/90 11/05/17 06:00 96 14 176/82 (113) 99 11/05/17 05:10 110 17 30 11/05/17 05:00 96 14 185/88 (120) 99 11/05/17 04:00 Mechanical Ventilator 11/05/17 04:00 99.0 110 14 157/80 (105) 99 99.0 11/05/17 04:00 100 11/05/17 04:00 30 11/05/17 03:00 97 16 30 11/05/17 03:00 96 14 123/73 (90) 99 11/05/17 02:00 100 14 146/77 (100) 99 11/05/17 01:16 123 18 30 11/05/17 01:00 100.4 114 14 130/74 (92) 99 100.4 11/05/17 00:52 100.4 11/05/17 00:22 100.6 11/05/17 00:00 Mechanical Ventilator 11/05/17 00:00 100.6 112 15 147/78 (101) 99 100.6 11/04/17 23:31 166/77 11/04/17 23:09 118 18 30 11/04/17 23:00 115 17 147/78 (101) 99 11/04/17 22:00 115 17 166/77 (106) 99 11/04/17 21:12 126 171/88 11/04/17 21:05 115 15 30 11/04/17 21:00 112 17 150/81 (104) 99 11/04/17 20:00 Mechanical Ventilator 11/04/17 20:00 99.0 112 17 150/81 (104) 97 99.0 11/04/17 20:00 112 11/04/17 20:00 30 11/04/17 19:15 111 15 30 11/04/17 19:00 98.8 113 15 140/83 (102) 97 98.8 11/04/17 18:00 112 15 193/98 (129) 97 11/04/17 17:25 101.0 11/04/17 17:00 101.1 119 17 164/85 (111) 99 101.1 11/04/17 16:50 120 17 30 11/04/17 16:00 30 11/04/17 16:00 121 20 156/91 (112) 100 11/04/17 16:00 129 11/04/17 16:00 Mechanical Ventilator 11/04/17 15:00 83 14 123/71 (88) 100 11/04/17 14:47 80 14 30 11/04/17 14:00 81 14 116/65 (82) 98 11/04/17 13:00 83 14 116/66 (83) 98 11/04/17 12:34 80 14 30 11/04/17 12:00 Mechanical Ventilator 11/04/17 12:00 30 11/04/17 12:00 86 11/04/17 12:00 97.6 89 14 107/65 (79) 100 97.6 11/04/17 11:00 98.8 105 14 132/70 (90) 100 98.8 11/04/17 10:42 101 14 30 11/04/17 10:00 101 14 138/75 (96) 99 11/04/17 09:55 100.5 100.5 11/04/17 09:53 100.5 11/04/17 09:40 100.3 100.3 11/04/17 09:02 117 143/79 11/04/17 09:00 106 14 132/71 (91) 99 11/04/17 08:36 109 14 30 11/04/17 08:00 111 11/04/17 08:00 30 11/04/17 08:00 111 14 148/80 (102) 100 11/04/17 08:00 Mechanical Ventilator 11/04/17 07:30 98.9 98.9 Intake and Output 11/04/17 11/05/17 19:00 07:00 Intake Total 2119.0 ml 795 ml Output Total 881 ml 840 ml Balance 1238.0 ml -45 ml Intake Oral 0 ml Free Water 100 ml 300 ml IV Total 1434.0 ml Tube Feeding 585 ml 495 ml Output Urine Total 840 ml 740 ml Stool Total 41 ml 100 ml Chest Tube Drainage Total 0 ml # Voids 20 # Bowel Movements 4 3 Laboratory Tests 11/04/17 07:40: Arterial Blood pH 7.480H, Arterial Blood Partial Pressure CO2 36.6, Arterial Blood Partial Pressure O2 89.2, Arterial Blood HCO3 27.1H, Arterial Blood Oxygen Saturation 96.9, Arterial Blood Base Excess 3.7, Aj Test Positive 11/04/17 18:20: Potassium Level 3.8 11/05/17 05:00: Potassium Level 3.4L, White Blood Count 16.7H, Red Blood Count 3.63L, Hemoglobin 11.1L, Hematocrit 33.2L, Mean Corpuscular Volume 91, Mean Corpuscular Hemoglobin 30.4, Mean Corpuscular Hemoglobin Concent 33.3, Red Cell Distribution Width 12.0, Platelet Count 286, Mean Platelet Volume 7.2, Neutrophils (%) (Auto) 69.5, Lymphocytes (%) (Auto) 22.0, Monocytes (%) (Auto) 7.3, Eosinophils (%) (Auto) 0.4, Basophils (%) (Auto) 0.9, Sodium Level 143, Chloride Level 108H, Carbon Dioxide Level 28, Anion Gap 8, Blood Urea Nitrogen 17, Creatinine 0.8, Estimat Glomerular Filtration Rate > 60, Glucose Level 107H , Calcium Level 9.0, Phosphorus Level 2.6, Magnesium Level 1.9, Total Bilirubin 0.2, Aspartate Amino Transf (AST/SGOT) 65H, Alanine Aminotransferase (ALT/SGPT) 93H, Alkaline Phosphatase 95, Total Protein 6.9, Albumin 2.5L, Globulin 4.4, Albumin/Globulin Ratio 0.6L Height (Feet): 5 Height (Inches): 2.00 Weight (Pounds): 104 General Appearance: lethargic EENT: normal ENT inspection Neck: supple Cardiovascular: normal rate Respiratory/Chest: decreased breath sounds Abdomen: normal bowel sounds, non tender, soft Extremities: non-tender Renaldo Sauceda MD Nov 05, 2017 07:29
--- NOTE | 2017-11-05 08:31 | Diagnostic Imaging Report ---
EXAM: XR Chest, 1 View CLINICAL HISTORY: DYSPNEA TECHNIQUE: Frontal view of the chest. COMPARISON: Chest x-ray dated 11/04/17 FINDINGS: Lungs: Increased interstitial markings, unchanged. Pleural space: Unremarkable. The costophrenic angles are sharp. No visible pneumothorax. Heart: Unremarkable. No cardiomegaly. Mediastinum: Unremarkable. Bones/joints: Status post left shoulder replacement. Tubes, lines and devices: Endotracheal tube tip is 5.4 cm above the pat. NG tube extends below the diaphragm and its tip is excluded from view. Central venous catheter tip at the superior vena cava/right atrial junction. IMPRESSION: No significant interval change. Stable appearance of lines and tubes. Persistent mildly increased interstitial markings, which may be related to mild pulmonary vascular congestion versus a mild interstitial pneumonitis.
[2017-11-05] MEDS: Pantoprazole Inj IVP SCH (09:26)
[2017-11-05] MEDS: Hydrocortisone 100mg Inj IV SCH (09:27)
[2017-11-05] MEDS: Heparin 5000 units/ml inj SUBQ SCH ×2 (09:33→21:16)
--- NOTE | 2017-11-05 09:33 | Pulmonolgy Critical Care Note ---
Critical Care - Asmt/Plan Problems: (1) Respiratory arrest (2) Aspiration pneumonia (3) Seizure (4) Pneumothorax on right (5) Diabetes (6) Cocaine abuse Respiratory: monitor respiratory rate, adjust FIO2, CXR Cardiac: continue to monitor HR/BP Renal: F/U I&O Gastrointestinal: continue feedings/current rate, hold feedings Endocrine: check TSH, check HgA1C Hematologic: monitor H/H, transfuse if hgb<8.5 Neurologic: PRN Ativan, keep patient comfortable Affect: PRN ativan Prophylaxis: Protonix, Heparin Notes Reviewed: cardio Discussed with: nurses, field nurse case managermanager package - Objective Last 24 Hour Vital Signs Date Time Temp Pulse Resp B/P (MAP) Pulse Ox O2 Delivery O2 Flow Rate FiO2 11/05/17 07:23 114 15 30 11/05/17 07:00 110 14 157/82 (107) 99 11/05/17 06:13 120 186/90 11/05/17 06:00 96 14 176/82 (113) 99 11/05/17 05:10 110 17 30 11/05/17 05:00 96 14 185/88 (120) 99 11/05/17 04:00 Mechanical Ventilator 11/05/17 04:00 99.0 110 14 157/80 (105) 99 99.0 11/05/17 04:00 100 11/05/17 04:00 30 11/05/17 03:00 97 16 30 11/05/17 03:00 96 14 123/73 (90) 99 11/05/17 02:00 100 14 146/77 (100) 99 11/05/17 01:16 123 18 30 11/05/17 01:00 100.4 114 14 130/74 (92) 99 100.4 11/05/17 00:52 100.4 11/05/17 00:22 100.6 11/05/17 00:00 Mechanical Ventilator 11/05/17 00:00 100.6 112 15 147/78 (101) 99 100.6 11/04/17 23:31 166/77 11/04/17 23:09 118 18 30 11/04/17 23:00 115 17 147/78 (101) 99 11/04/17 22:00 115 17 166/77 (106) 99 11/04/17 21:12 126 171/88 11/04/17 21:05 115 15 30 11/04/17 21:00 112 17 150/81 (104) 99 11/04/17 20:00 Mechanical Ventilator 11/04/17 20:00 99.0 112 17 150/81 (104) 97 99.0 11/04/17 20:00 112 11/04/17 20:00 30 11/04/17 19:15 111 15 30 11/04/17 19:00 98.8 113 15 140/83 (102) 97 98.8 11/04/17 18:00 112 15 193/98 (129) 97 11/04/17 17:25 101.0 11/04/17 17:00 101.1 119 17 164/85 (111) 99 101.1 11/04/17 16:50 120 17 30 11/04/17 16:00 30 11/04/17 16:00 121 20 156/91 (112) 100 11/04/17 16:00 129 11/04/17 16:00 Mechanical Ventilator 11/04/17 15:00 83 14 123/71 (88) 100 11/04/17 14:47 80 14 30 11/04/17 14:00 81 14 116/65 (82) 98 11/04/17 13:00 83 14 116/66 (83) 98 11/04/17 12:34 80 14 30 11/04/17 12:00 Mechanical Ventilator 11/04/17 12:00 30 11/04/17 12:00 86 11/04/17 12:00 97.6 89 14 107/65 (79) 100 97.6 11/04/17 11:00 98.8 105 14 132/70 (90) 100 98.8 11/04/17 10:42 101 14 30 11/04/17 10:00 101 14 138/75 (96) 99 11/04/17 09:55 100.5 100.5 11/04/17 09:53 100.5 11/04/17 09:40 100.3 100.3 Status: sedated Condition: critical Neck: full ROM Heart: HR/BP stable Abdomen: soft, active bowel sounds, feeding tube Extremities: edema Micro: Microbiology Date/Time Source Procedure Growth Status 11/04/17 21:30 Stool Clostridium difficile Toxin Assay - Final Complete Accucheck: 120 Critical Care - Subjective ROS Limited/Unobtainable: Yes EKG Rhythm: Sinus Rhythm FI02: 30 Vent Support Breath Rate: 14 Vent Support Mode: AC Vent Tidal Volume: 600 Sputum Amount: Moderate PEEP: 0.0 PIP: 26 Tube Feeding Amount: 45 I&O: Intake and Output 11/04/17 11/05/17 19:00 07:00 Intake Total 2119.0 ml 1197 ml Output Total 881 ml 910 ml Balance 1238.0 ml 287 ml Intake Oral 0 ml Free Water 100 ml 300 ml IV Total 1434.0 ml 357 ml Tube Feeding 585 ml 540 ml Output Urine Total 840 ml 810 ml Stool Total 41 ml 100 ml Chest Tube Drainage Total 0 ml # Voids 20 # Bowel Movements 4 3 ET-Tube: 7.5 ET Position: 23 Labs: Laboratory Tests Test 11/04/17 18:20 11/05/17 05:00 Potassium Level 3.8 MMOL/L (3.5-5.1) 3.4 MMOL/L (3.5-5.1) L White Blood Count 16.7 K/UL (4.8-10.8) H Red Blood Count 3.63 M/UL (4.20-5.40) L Hemoglobin 11.1 G/DL (12.0-16.0) L Hematocrit 33.2 % (37.0-47.0) L Mean Corpuscular Volume 91 FL (80-99) Mean Corpuscular Hemoglobin 30.4 PG (27.0-31.0) Mean Corpuscular Hemoglobin Concent 33.3 G/DL (32.0-36.0) Red Cell Distribution Width 12.0 % (11.6-14.8) Platelet Count 286 K/UL (150-450) Mean Platelet Volume 7.2 FL (6.5-10.1) Neutrophils (%) (Auto) 69.5 % (45.0-75.0) Lymphocytes (%) (Auto) 22.0 % (20.0-45.0) Monocytes (%) (Auto) 7.3 % (1.0-10.0) Eosinophils (%) (Auto) 0.4 % (0.0-3.0) Basophils (%) (Auto) 0.9 % (0.0-2.0) Sodium Level 143 MMOL/L (136-145) Chloride Level 108 MMOL/L (98-107) H Carbon Dioxide Level 28 MMOL/L (21-32) Anion Gap 8 mmol/L (5-15) Blood Urea Nitrogen 17 mg/dL (7-18) Creatinine 0.8 MG/DL (0.55-1.30) Estimat Glomerular Filtration Rate > 60 mL/min (>60) Glucose Level 107 MG/DL (74-106) H Calcium Level 9.0 MG/DL (8.5-10.1) Phosphorus Level 2.6 MG/DL (2.5-4.9) Magnesium Level 1.9 MG/DL (1.8-2.4) Total Bilirubin 0.2 MG/DL (0.2-1.0) Aspartate Amino Transf (AST/SGOT) 65 U/L (15-37) H Alanine Aminotransferase (ALT/SGPT) 93 U/L (12-78) H Alkaline Phosphatase 95 U/L (46-116) Total Protein 6.9 G/DL (6.4-8.2) Albumin 2.5 G/DL (3.4-5.0) L Globulin 4.4 g/dL Albumin/Globulin Ratio 0.6 (1.0-2.7) L Evan Purcell MD Nov 05, 2017 09:33
--- NOTE | 2017-11-05 09:40 | Infectious Diseases Prog Note ---
Assessment/Plan Assessment/Plan 57 yo female who presented to the ED on 10/30/17 after pulmonary arrest. Sepsis Probable Asp PNA 11/05 CXR: Persistent mildly increased interstitial markings, which may be related to mild pulmonary vascular congestion versus a mild interstitial pneumonitis. 10/30 Sputum Cultures - Predominantly NF - +1 Steno No evid of UTI 10/31 Urine Cx - NGTD Leukocytosis - increased again Fevers Transaminitis , improving Hep panel : neg Neg : C Diff Seizures - Had Seizure on route to ED 10/30/17 and in the ICU as well Drug abuse - Pos for cocaine Arthritis Chronic pain. P: - cont Levofloxacin d# 2 ( coverage of Stenotrophomonas . fevers ) - Continue Flagyl # 4 for asp PNA - 11/04 Sp Ceftriaxone #3 - 10/31 Vancomycin #1 - 10/31 Aztreonam - 10/30 SP Ceftriaxone - Monitor CBC and Temps - Vent management per pulm - Poor prognosis Subjective Allergies: Coded Allergies: ASPIRIN (Verified Allergy, Unknown, 10/30/17) PENICILLINS (Verified Allergy, Unknown, 10/30/17) UNABLE TO ASSESS (Unverified , 10/29/17) Objective Vital Signs Last 24 Hour Vital Signs Date Time Temp Pulse Resp B/P (MAP) Pulse Ox O2 Delivery O2 Flow Rate FiO2 11/05/17 09:28 100.2 11/05/17 07:23 114 15 30 11/05/17 07:00 110 14 157/82 (107) 99 11/05/17 06:13 120 186/90 11/05/17 06:00 96 14 176/82 (113) 99 11/05/17 05:10 110 17 30 11/05/17 05:00 96 14 185/88 (120) 99 11/05/17 04:00 Mechanical Ventilator 11/05/17 04:00 99.0 110 14 157/80 (105) 99 99.0 11/05/17 04:00 100 11/05/17 04:00 30 11/05/17 03:00 97 16 30 11/05/17 03:00 96 14 123/73 (90) 99 11/05/17 02:00 100 14 146/77 (100) 99 11/05/17 01:16 123 18 30 11/05/17 01:00 100.4 114 14 130/74 (92) 99 100.4 11/05/17 00:52 100.4 11/05/17 00:22 100.6 11/05/17 00:00 Mechanical Ventilator 11/05/17 00:00 100.6 112 15 147/78 (101) 99 100.6 11/04/17 23:31 166/77 11/04/17 23:09 118 18 30 11/04/17 23:00 115 17 147/78 (101) 99 11/04/17 22:00 115 17 166/77 (106) 99 11/04/17 21:12 126 171/88 11/04/17 21:05 115 15 30 11/04/17 21:00 112 17 150/81 (104) 99 11/04/17 20:00 Mechanical Ventilator 11/04/17 20:00 99.0 112 17 150/81 (104) 97 99.0 11/04/17 20:00 112 11/04/17 20:00 30 11/04/17 19:15 111 15 30 11/04/17 19:00 98.8 113 15 140/83 (102) 97 98.8 11/04/17 18:00 112 15 193/98 (129) 97 11/04/17 17:25 101.0 11/04/17 17:00 101.1 119 17 164/85 (111) 99 101.1 11/04/17 16:50 120 17 30 11/04/17 16:00 30 11/04/17 16:00 121 20 156/91 (112) 100 11/04/17 16:00 129 11/04/17 16:00 Mechanical Ventilator 11/04/17 15:00 83 14 123/71 (88) 100 11/04/17 14:47 80 14 30 11/04/17 14:00 81 14 116/65 (82) 98 11/04/17 13:00 83 14 116/66 (83) 98 11/04/17 12:34 80 14 30 11/04/17 12:00 Mechanical Ventilator 11/04/17 12:00 30 11/04/17 12:00 86 11/04/17 12:00 97.6 89 14 107/65 (79) 100 97.6 11/04/17 11:00 98.8 105 14 132/70 (90) 100 98.8 11/04/17 10:42 101 14 30 11/04/17 10:00 101 14 138/75 (96) 99 11/04/17 09:55 100.5 100.5 11/04/17 09:53 100.5 11/04/17 09:40 100.3 100.3 Height (Feet): 5 Height (Inches): 2.00 Weight (Pounds): 104 Microbiology Date/Time Source Procedure Growth Status 11/04/17 21:30 Stool Clostridium difficile Toxin Assay - Final Complete Laboratory Tests Test 11/04/17 18:20 11/05/17 05:00 Potassium Level 3.8 MMOL/L (3.5-5.1) 3.4 MMOL/L (3.5-5.1) L White Blood Count 16.7 K/UL (4.8-10.8) H Red Blood Count 3.63 M/UL (4.20-5.40) L Hemoglobin 11.1 G/DL (12.0-16.0) L Hematocrit 33.2 % (37.0-47.0) L Mean Corpuscular Volume 91 FL (80-99) Mean Corpuscular Hemoglobin 30.4 PG (27.0-31.0) Mean Corpuscular Hemoglobin Concent 33.3 G/DL (32.0-36.0) Red Cell Distribution Width 12.0 % (11.6-14.8) Platelet Count 286 K/UL (150-450) Mean Platelet Volume 7.2 FL (6.5-10.1) Neutrophils (%) (Auto) 69.5 % (45.0-75.0) Lymphocytes (%) (Auto) 22.0 % (20.0-45.0) Monocytes (%) (Auto) 7.3 % (1.0-10.0) Eosinophils (%) (Auto) 0.4 % (0.0-3.0) Basophils (%) (Auto) 0.9 % (0.0-2.0) Sodium Level 143 MMOL/L (136-145) Chloride Level 108 MMOL/L (98-107) H Carbon Dioxide Level 28 MMOL/L (21-32) Anion Gap 8 mmol/L (5-15) Blood Urea Nitrogen 17 mg/dL (7-18) Creatinine 0.8 MG/DL (0.55-1.30) Estimat Glomerular Filtration Rate > 60 mL/min (>60) Glucose Level 107 MG/DL (74-106) H Calcium Level 9.0 MG/DL (8.5-10.1) Phosphorus Level 2.6 MG/DL (2.5-4.9) Magnesium Level 1.9 MG/DL (1.8-2.4) Total Bilirubin 0.2 MG/DL (0.2-1.0) Aspartate Amino Transf (AST/SGOT) 65 U/L (15-37) H Alanine Aminotransferase (ALT/SGPT) 93 U/L (12-78) H Alkaline Phosphatase 95 U/L (46-116) Total Protein 6.9 G/DL (6.4-8.2) Albumin 2.5 G/DL (3.4-5.0) L Globulin 4.4 g/dL Albumin/Globulin Ratio 0.6 (1.0-2.7) L Current Medications Medications (Trade) Dose Ordered Sig/Yung Route PRN Reason Start Time Stop Time Status Last Admin Dose Admin Acetaminophen (Tylenol) 650 mg Q4H PRN RECTAL Prn Headache/Temp > 101 10/30/17 16:45 11/29/17 16:44 10/31/17 21:24 Acetaminophen (Tylenol) 650 mg Q6H PRN NG Mild Pain/Temp > 100.5 11/03/17 22:00 12/03/17 21:59 11/05/17 09:28 Chlorhexidine Gluconate (Sunita-Hex 2%) 1 applic DAILY@1999 TOPIC 10/30/17 20:00 11/29/17 19:59 11/04/17 20:04 Clonidine HCl (Catapres Tab) 0.1 mg Q4H PRN ORAL for SBP >160 11/01/17 13:00 12/01/17 12:59 11/04/17 23:31 Dextrose (Dextrose 50%) 25 ml STAT PRN IV Hypoglycemia 11/03/17 18:00 12/03/17 17:59 Dextrose (Dextrose 50%) 50 ml STAT PRN IV Hypoglycemia 11/03/17 18:00 12/03/17 17:59 Diltiazem HCl (Cardizem) 30 mg EVERY 8 HOURS NG 11/05/17 06:00 12/05/17 05:59 11/05/17 06:13 Haloperidol Lactate 5 mg/ Dextrose 56 ml @ 112 mls/hr Q1H PRN IVPB Agitation 11/02/17 10:00 12/02/17 09:59 11/02/17 12:53 Heparin Sodium (Porcine) (Heparin 5000 units/ml) 5,000 units EVERY 12 HOURS SUBQ 10/30/17 09:00 11/29/17 08:59 11/05/17 09:33 Hydrocortisone (Solu-CORTEF) 50 mg DAILY IV 11/03/17 09:00 11/30/17 18:29 11/05/17 09:27 Insulin Aspart (NovoLOG) Q4HR SUBQ 11/03/17 20:00 12/03/17 19:59 11/05/17 09:35 Levetiracetam 100 ml @ 400 mls/hr Q8H IVPB 10/30/17 17:00 11/29/17 16:59 11/05/17 09:28 Levofloxacin 150 ml @ 100 mls/hr Q24H IVPB 11/04/17 14:30 11/11/17 14:29 11/04/17 14:41 Metronidazole 100 ml @ 100 mls/hr Q8H IVPB 10/30/17 11:00 11/06/17 10:59 11/05/17 03:28 Morphine Sulfate (Morphine Sulfate) 4 mg Q4H PRN IVP Severe Pain (Pain Scale 7-10) 10/30/17 08:00 11/06/17 07:59 11/05/17 06:45 Nitroglycerin (Ntg) 0.4 mg Q5M PRN SL Prn Chest Pain 10/30/17 08:00 11/29/17 07:59 Ondansetron HCl (Zofran) 4 mg Q6H PRN IVP Nausea & Vomiting 10/30/17 08:00 11/29/17 07:59 Pantoprazole (Protonix) 40 mg DAILY IVP 11/02/17 09:00 12/02/17 08:59 11/05/17 09:26 Phenytoin 100 mg/ Sodium Chloride 57 ml @ 114 mls/hr [id number] PHENYTOIN IVPB 10/30/17 16:00 11/29/17 15:59 11/05/17 09:21 Freddy Howe MD Nov 05, 2017 09:40
--- NOTE | 2017-11-05 13:57 | Neurology Progress Note ---
Interim History Interim History Interim History Ms. Robertson continues to be in a comatose state. She does however exhibit spontaneous eye opening and closing. She is still exhibiting decerebrate posturing. She has had no seizures or seizure like phenomena. She continues to be artificially ventilated. There has been no improvement in her neurologic state. Review of Systems Neuro Review of Systems Unable to obtain. Objective Physical Exam Last Vital Signs Date Time Temp Pulse Resp B/P (MAP) Pulse Ox O2 Delivery O2 Flow Rate FiO2 11/05/17 12:40 103 20 30 11/05/17 12:00 Mechanical Ventilator 11/05/17 12:00 152/75 (100) 100 11/05/17 10:00 99.9 99.9 Laboratory Tests Test 11/04/17 18:20 11/05/17 04:00 11/05/17 05:00 Potassium Level 3.8 MMOL/L (3.5-5.1) 3.4 MMOL/L (3.5-5.1) L Arterial Blood pH 7.443 (7.350-7.450) Arterial Blood Partial Pressure CO2 31.3 mmHg (35.0-45.0) L Arterial Blood Partial Pressure O2 102.6 mmHg (75.0-100.0) H Arterial Blood HCO3 20.9 mmol/L (22.0-26.0) L Arterial Blood Oxygen Saturation 97.3 % (92.0-98.0) Arterial Blood Base Excess -2.5 Aj Test Positive White Blood Count 16.7 K/UL (4.8-10.8) H Red Blood Count 3.63 M/UL (4.20-5.40) L Hemoglobin 11.1 G/DL (12.0-16.0) L Hematocrit 33.2 % (37.0-47.0) L Mean Corpuscular Volume 91 FL (80-99) Mean Corpuscular Hemoglobin 30.4 PG (27.0-31.0) Mean Corpuscular Hemoglobin Concent 33.3 G/DL (32.0-36.0) Red Cell Distribution Width 12.0 % (11.6-14.8) Platelet Count 286 K/UL (150-450) Mean Platelet Volume 7.2 FL (6.5-10.1) Neutrophils (%) (Auto) 69.5 % (45.0-75.0) Lymphocytes (%) (Auto) 22.0 % (20.0-45.0) Monocytes (%) (Auto) 7.3 % (1.0-10.0) Eosinophils (%) (Auto) 0.4 % (0.0-3.0) Basophils (%) (Auto) 0.9 % (0.0-2.0) Sodium Level 143 MMOL/L (136-145) Chloride Level 108 MMOL/L (98-107) H Carbon Dioxide Level 28 MMOL/L (21-32) Anion Gap 8 mmol/L (5-15) Blood Urea Nitrogen 17 mg/dL (7-18) Creatinine 0.8 MG/DL (0.55-1.30) Estimat Glomerular Filtration Rate > 60 mL/min (>60) Glucose Level 107 MG/DL (74-106) H Calcium Level 9.0 MG/DL (8.5-10.1) Phosphorus Level 2.6 MG/DL (2.5-4.9) Magnesium Level 1.9 MG/DL (1.8-2.4) Total Bilirubin 0.2 MG/DL (0.2-1.0) Aspartate Amino Transf (AST/SGOT) 65 U/L (15-37) H Alanine Aminotransferase (ALT/SGPT) 93 U/L (12-78) H Alkaline Phosphatase 95 U/L (46-116) Total Protein 6.9 G/DL (6.4-8.2) Albumin 2.5 G/DL (3.4-5.0) L Globulin 4.4 g/dL Albumin/Globulin Ratio 0.6 (1.0-2.7) L Neurologic Exam Objective PHYSICAL EXAMINATION: GENERAL: She is a well-developed, cachectic, lean, black lady, lying in an ICU bed, in no acute distress, connected to a ventilator via an orotracheal tube. HEAD: Normocephalic and atraumatic. EENT: Examination benign. NECK: No neck rigidity was observed. NEUROLOGIC EXAMINATION: MENTAL STATUS EXAMINATION: She was comatose and only responded to deep painful stimuli with decerebration in the upper extremities. Further mental status testing was impossible. SPEECH: Could not be tested. LANGUAGE: Could not be tested. CRANIAL NERVE EXAMINATION: II: She did not blink to threat. III, IV & : The external ocular movements were present on oculocephalic maneuvers. The pupils were 3 mm in diameter and reactive sluggishly to light. V & VII: The corneal reflexes were present, but significantly diminished. VIII: She did not respond to sounds and had no nystagmus. IX & X: The gag reflex was absent on manipulating the endotracheal tube. XI: The sternocleidomastoids and trapezii could not be tested. XII: Could not be tested. MOTOR SYSTEM: The tone was increased in all four extremities with severe spasticity. Examination of muscle mass revealed generalized muscle wasting. Examination of power was impossible to perform because even on applying deep painful stimuli, no purposeful movements were seen. SENSORY EXAMINATION: She responded to deep pain with decerebration. REFLEXES: 1+ and bilaterally symmetrical at the biceps, triceps, brachioradialis , and knees. 0 at both ankles. The plantar responses were extensor bilaterally. COORDINATION, STANCE & GAIT: Could not be tested. Impression/Recommendations Diagnostic Impression 1. Ms. Polly Robertson is a 57-year-old, right-handed, black lady, who does have a past history of polysubstance abuse with her recent drug of choice being cocaine, a seizure disorder, and chronic pain, who was found down in her bathroom at home with vomitus in her mouth. She then was noted to stop breathing and this progressed to cardiac failure. The paramedics were called in and she had to have advanced cardiac life support before she could be resuscitated. She was then transported to the [facility] emergency room and on the way here she was noted to have a generalized seizure. Since then, she has had multiple seizures, however, at this point in time, they are well controlled on the present regimen. 2. She continues to be in a comatose state. She does however exhibit spontaneous eye opening and closing. She is still exhibiting decerebrate posturing. She has had no seizures or seizure like phenomena. She continues to be artificially ventilated. There has been no improvement in her neurologic state. 3. On neurological examination, at this time, she is comatose and only responds to deep pain with decerebration. She however does not demonstrate any focal or lateralizing findings. 4. The CT scan of the brain without contrast is benign for acute pathology. 5. Her latest laboratory data on my initial evaluation revealed that her WBC count was elevated to 17,600 with predominantly 79% being neutrophils and 15% being lymphocytes and monocytes. Her arterial blood gas revealed pCO2 low at 21.2, pO2 at 154, and pH of 7.49. Her chemistry panel revealed a creatinine elevated to 1.7. Her AST was elevated at 255, ALT elevated at 251, and alkaline phosphatase elevated at 142. Her albumin was low at 2.9. Her Urinalysis revealed 1+ leukocyte esterase, 20- 30 red blood cells, and 5-10 white blood cells per high-power field. The urine toxicology screen was positive for cocaine. 6. Her EEG done on 10/31/17 revealed a severe encephalopathy and bilateral frontal epileptogenic foci with inter-ictal discharges at time with a large field. 7. The patient's history, neurological examination, laboratory data and imaging studies are most compatible with seizures due to a hypoxic/ischemic cerebral insult and/or cocaine intoxication. 8. The prognosis for recovery of cerebral function is dismal. Recommendations 1. Continue present management. 2. Continue to treat the patient's infectious process vigorously. 3. Continue Dilantin 100 mg intravenously q.8 h. 4. Continue Keppra 1 G intravenously every 8 hours. 5. In light of her poor prognosis make decision regarding intensity of care. Denisse Lester M.D., M.S.P.Zackery. DENISSE LESTER Nov 05, 2017 13:57
--- NOTE | 2017-11-05 16:04 | General Progress Note ---
Assessment/Plan Problem List: (1) Renal insufficiency ICD Codes: N28.9 - Disorder of kidney and ureter, unspecified SNOMED: 864057303, 512971602 (2) UTI (urinary tract infection) ICD Codes: N39.0 - Urinary tract infection, site not specified SNOMED: 32678721 (3) Seizure ICD Codes: R56.9 - Unspecified convulsions SNOMED: 79622683 (4) HTN (hypertension) ICD Codes: I10 - Essential (primary) hypertension SNOMED: 34431016 (5) Diabetes ICD Codes: E11.9 - Type 2 diabetes mellitus without complications SNOMED: 58334156 Status: stable, progressing Assessment/Plan vent abx detox neph f/u cbc bmp am Subjective Constitutional: Reports: weakness Allergies: Coded Allergies: ASPIRIN (Verified Allergy, Unknown, 10/30/17) PENICILLINS (Verified Allergy, Unknown, 10/30/17) UNABLE TO ASSESS (Unverified , 10/29/17) All Systems: reviewed and negative except above Subjective intubated sedated in icu Objective Last 24 Hour Vital Signs Date Time Temp Pulse Resp B/P (MAP) Pulse Ox O2 Delivery O2 Flow Rate FiO2 11/05/17 15:24 111 20 30 11/05/17 14:00 103 152/75 11/05/17 12:40 103 20 30 11/05/17 12:00 Mechanical Ventilator 11/05/17 12:00 99 19 152/75 (100) 100 11/05/17 12:00 30 11/05/17 11:15 103 14 30 11/05/17 11:00 104 14 143/71 (95) 100 11/05/17 11:00 30 11/05/17 10:00 99.9 111 15 149/71 (97) 85 99.9 11/05/17 09:58 100.2 11/05/17 09:39 104 15 30 11/05/17 09:28 100.2 11/05/17 09:00 100.6 113 14 139/72 (94) 99 100.6 11/05/17 08:00 30 11/05/17 08:00 99.6 110 14 143/76 (98) 99 99.6 11/05/17 08:00 Mechanical Ventilator 11/05/17 07:23 114 15 30 11/05/17 07:00 110 14 157/82 (107) 99 11/05/17 06:13 120 186/90 11/05/17 06:00 96 14 176/82 (113) 99 11/05/17 05:10 110 17 30 11/05/17 05:00 96 14 185/88 (120) 99 11/05/17 04:00 Mechanical Ventilator 11/05/17 04:00 99.0 110 14 157/80 (105) 99 99.0 11/05/17 04:00 100 11/05/17 04:00 30 11/05/17 03:00 97 16 30 11/05/17 03:00 96 14 123/73 (90) 99 11/05/17 02:00 100 14 146/77 (100) 99 11/05/17 01:16 123 18 30 11/05/17 01:00 100.4 114 14 130/74 (92) 99 100.4 11/05/17 00:22 100.6 11/05/17 00:00 Mechanical Ventilator 11/05/17 00:00 100.6 112 15 147/78 (101) 99 100.6 11/04/17 23:31 166/77 11/04/17 23:09 118 18 30 11/04/17 23:00 115 17 147/78 (101) 99 11/04/17 22:00 115 17 166/77 (106) 99 11/04/17 21:12 126 171/88 11/04/17 21:05 115 15 30 11/04/17 21:00 112 17 150/81 (104) 99 11/04/17 20:00 Mechanical Ventilator 11/04/17 20:00 99.0 112 17 150/81 (104) 97 99.0 11/04/17 20:00 112 11/04/17 20:00 30 11/04/17 19:15 111 15 30 11/04/17 19:00 98.8 113 15 140/83 (102) 97 98.8 11/04/17 18:00 112 15 193/98 (129) 97 11/04/17 17:25 101.0 11/04/17 17:00 101.1 119 17 164/85 (111) 99 101.1 11/04/17 16:50 120 17 30 Intake and Output 11/04/17 11/05/17 19:00 07:00 Intake Total 2119.0 ml 1197 ml Output Total 881 ml 910 ml Balance 1238.0 ml 287 ml Intake Oral 0 ml Free Water 100 ml 300 ml IV Total 1434.0 ml 357 ml Tube Feeding 585 ml 540 ml Output Urine Total 840 ml 810 ml Stool Total 41 ml 100 ml Chest Tube Drainage Total 0 ml # Voids 20 # Bowel Movements 4 3 Laboratory Tests 11/04/17 18:20: Potassium Level 3.8 11/05/17 04:00: Arterial Blood pH 7.443, Arterial Blood Partial Pressure CO2 31.3L, Arterial Blood Partial Pressure O2 102.6H, Arterial Blood HCO3 20.9L, Arterial Blood Oxygen Saturation 97.3, Arterial Blood Base Excess -2.5, Aj Test Positive 11/05/17 05:00: Potassium Level 3.4L, White Blood Count 16.7H, Red Blood Count 3.63L, Hemoglobin 11.1L, Hematocrit 33.2L, Mean Corpuscular Volume 91, Mean Corpuscular Hemoglobin 30.4, Mean Corpuscular Hemoglobin Concent 33.3, Red Cell Distribution Width 12.0, Platelet Count 286, Mean Platelet Volume 7.2, Neutrophils (%) (Auto) 69.5, Lymphocytes (%) (Auto) 22.0, Monocytes (%) (Auto) 7.3, Eosinophils (%) (Auto) 0.4, Basophils (%) (Auto) 0.9, Sodium Level 143, Chloride Level 108H, Carbon Dioxide Level 28, Anion Gap 8, Blood Urea Nitrogen 17, Creatinine 0.8, Estimat Glomerular Filtration Rate > 60, Glucose Level 107H , Calcium Level 9.0, Phosphorus Level 2.6, Magnesium Level 1.9, Total Bilirubin 0.2, Aspartate Amino Transf (AST/SGOT) 65H, Alanine Aminotransferase (ALT/SGPT) 93H, Alkaline Phosphatase 95, Total Protein 6.9, Albumin 2.5L, Globulin 4.4, Albumin/Globulin Ratio 0.6L Height (Feet): 5 Height (Inches): 2.00 Weight (Pounds): 104 General Appearance: lethargic EENT: normal ENT inspection Neck: normal alignment Cardiovascular: normal peripheral pulses, normal rate, regular rhythm Respiratory/Chest: chest wall non-tender, lungs clear, normal breath sounds Abdomen: normal bowel sounds, non tender, soft Extremities: normal inspection Edema: no edema noted Arm (L), no edema noted Arm (R), no edema noted Leg (L), no edema noted Leg (R), no edema noted Pedal (L), no edema noted Pedal (R), no edema noted Generalized Neurologic: responsive, motor weakness Skin: normal pigmentation, warm/dry Josias Skinner DO Nov 05, 2017 16:04
[2017-11-05] MEDS ORDERED: Tubing IV Secondary IV ONE ×2 (16:25→16:26)
[2017-11-05] MEDS ORDERED: NS 275ml ONE ×2 (16:25→16:26)
[2017-11-05] MEDS ORDERED: NS 500ML ONE (16:25)
[2017-11-05] MEDS: Dyna-Hex 2% Top Sol 2oz TOPIC SCH (19:52)
--- NOTE | 2017-11-05 20:53 | Cardiology Progress Note ---
Assessment/Plan Assessment/Plan 1. Sinus tachycardia, ? due to cocaine intoxication or small pneumothorax. Echo reveals normal left ventricular systolic function with LVEF of approximately 55% . Increase diltiazem dosage. 2. Acute hypoxemia respiratory failure with emergence of small right pneumothorax. 3. Mild pulmonary hypertension with right ventricular systolic pressure measured at 42 mmHg. 4. Seizure disorder. 5. Polysubstance abuse. Subjective Subjective Sinus tachycardia at 114. Intubated. Objective Last 24 Hour Vital Signs Date Time Temp Pulse Resp B/P (MAP) Pulse Ox O2 Delivery O2 Flow Rate FiO2 11/05/17 20:00 Mechanical Ventilator 11/05/17 20:00 99.6 114 14 162/81 (108) 100 99.6 11/05/17 20:00 30 11/05/17 19:53 162/81 11/05/17 19:39 99.9 11/05/17 19:09 100.1 11/05/17 19:02 119 15 30 11/05/17 19:00 110 14 162/72 (102) 100 11/05/17 17:22 115 19 30 11/05/17 17:00 110 14 154/81 (105) 100 11/05/17 16:00 111 15 150/81 (104) 100 11/05/17 16:00 100 11/05/17 16:00 30 11/05/17 16:00 Mechanical Ventilator 11/05/17 15:24 111 20 30 11/05/17 15:00 104 21 149/72 (97) 100 11/05/17 14:00 121 19 147/106 (120) 99 11/05/17 14:00 103 152/75 11/05/17 13:00 106 21 151/74 (99) 99 11/05/17 12:40 103 20 30 11/05/17 12:00 Mechanical Ventilator 11/05/17 12:00 99 19 152/75 (100) 100 11/05/17 12:00 100 11/05/17 12:00 30 11/05/17 11:15 103 14 30 11/05/17 11:00 104 14 143/71 (95) 100 11/05/17 11:00 30 11/05/17 10:00 99.9 111 15 149/71 (97) 85 99.9 11/05/17 09:39 104 15 30 9/15/18 09:28 100.2 11/05/17 09:00 100.6 113 14 139/72 (94) 99 100.6 11/05/17 08:00 30 11/05/17 08:00 99.6 110 14 143/76 (98) 99 99.6 11/05/17 08:00 110 11/05/17 08:00 Mechanical Ventilator 11/05/17 07:23 114 15 30 11/05/17 07:00 110 14 157/82 (107) 99 11/05/17 06:13 120 186/90 11/05/17 06:00 96 14 176/82 (113) 99 11/05/17 05:10 110 17 30 11/05/17 05:00 96 14 185/88 (120) 99 11/05/17 04:00 Mechanical Ventilator 11/05/17 04:00 99.0 110 14 157/80 (105) 99 99.0 11/05/17 04:00 100 11/05/17 04:00 30 11/05/17 03:00 97 16 30 11/05/17 03:00 96 14 123/73 (90) 99 11/05/17 02:00 100 14 146/77 (100) 99 11/05/17 01:16 123 18 30 11/05/17 01:00 100.4 114 14 130/74 (92) 99 100.4 11/05/17 00:22 100.6 11/05/17 00:00 Mechanical Ventilator 11/05/17 00:00 100.6 112 15 147/78 (101) 99 100.6 11/04/17 23:31 166/77 11/04/17 23:09 118 18 30 11/04/17 23:00 115 17 147/78 (101) 99 11/04/17 22:00 115 17 166/77 (106) 99 11/04/17 21:12 126 171/88 11/04/17 21:05 115 15 30 11/04/17 21:00 112 17 150/81 (104) 99 Intake and Output 11/04/17 11/05/17 19:00 07:00 Intake Total 2119.0 ml 1197 ml Output Total 881 ml 910 ml Balance 1238.0 ml 287 ml Intake Oral 0 ml Free Water 100 ml 300 ml IV Total 1434.0 ml 357 ml Tube Feeding 585 ml 540 ml Output Urine Total 840 ml 810 ml Stool Total 41 ml 100 ml Chest Tube Drainage Total 0 ml # Voids 20 # Bowel Movements 4 3 2D Echo: EF 60-65%, mild LVH, Mild AR, normal LVDD, RVSP 42 mmHg Laboratory Tests Test 11/05/17 04:00 11/05/17 05:00 Arterial Blood pH 7.443 (7.350-7.450) Arterial Blood Partial Pressure CO2 31.3 mmHg (35.0-45.0) L Arterial Blood Partial Pressure O2 102.6 mmHg (75.0-100.0) H Arterial Blood HCO3 20.9 mmol/L (22.0-26.0) L Arterial Blood Oxygen Saturation 97.3 % (92.0-98.0) Arterial Blood Base Excess -2.5 Aj Test Positive White Blood Count 16.7 K/UL (4.8-10.8) H Red Blood Count 3.63 M/UL (4.20-5.40) L Hemoglobin 11.1 G/DL (12.0-16.0) L Hematocrit 33.2 % (37.0-47.0) L Mean Corpuscular Volume 91 FL (80-99) Mean Corpuscular Hemoglobin 30.4 PG (27.0-31.0) Mean Corpuscular Hemoglobin Concent 33.3 G/DL (32.0-36.0) Red Cell Distribution Width 12.0 % (11.6-14.8) Platelet Count 286 K/UL (150-450) Mean Platelet Volume 7.2 FL (6.5-10.1) Neutrophils (%) (Auto) 69.5 % (45.0-75.0) Lymphocytes (%) (Auto) 22.0 % (20.0-45.0) Monocytes (%) (Auto) 7.3 % (1.0-10.0) Eosinophils (%) (Auto) 0.4 % (0.0-3.0) Basophils (%) (Auto) 0.9 % (0.0-2.0) Sodium Level 143 MMOL/L (136-145) Potassium Level 3.4 MMOL/L (3.5-5.1) L Chloride Level 108 MMOL/L (98-107) H Carbon Dioxide Level 28 MMOL/L (21-32) Anion Gap 8 mmol/L (5-15) Blood Urea Nitrogen 17 mg/dL (7-18) Creatinine 0.8 MG/DL (0.55-1.30) Estimat Glomerular Filtration Rate > 60 mL/min (>60) Glucose Level 107 MG/DL (74-106) H Calcium Level 9.0 MG/DL (8.5-10.1) Phosphorus Level 2.6 MG/DL (2.5-4.9) Magnesium Level 1.9 MG/DL (1.8-2.4) Total Bilirubin 0.2 MG/DL (0.2-1.0) Aspartate Amino Transf (AST/SGOT) 65 U/L (15-37) H Alanine Aminotransferase (ALT/SGPT) 93 U/L (12-78) H Alkaline Phosphatase 95 U/L (46-116) Total Protein 6.9 G/DL (6.4-8.2) Albumin 2.5 G/DL (3.4-5.0) L Globulin 4.4 g/dL Albumin/Globulin Ratio 0.6 (1.0-2.7) L Microbiology Date/Time Source Procedure Growth Status 11/04/17 21:30 Stool Clostridium difficile Toxin Assay - Final Complete Objective HEENT: Atraumatic and normocephalic. Anicteric. Pupils are equal, round, and reactive to light and accommodation. NECK: JVP cannot be assessed due to intubation. CARDIOVASCULAR: Normal S1, S2. Tachycardic. No murmurs, gallops, or rubs. LUNGS: Diminished breath sounds in both bases. ABDOMEN: Soft, nontender, and nondistended. Positive bowel sounds. EXTREMITIES: No evidence of edema, clubbing, or cyanosis. Geovany Brown MD Nov 05, 2017 20:53
[2017-11-05] MEDS: dilTIAZem HCl 60mg tab NG SCH (21:14)
[2017-11-06] VITALS (24 sets, daily range): BP systolic 137–167; BP diastolic 65–92
[2017-11-06] MEDS: NovoLOG Insulin Flexpen SUBQ SCH ×6 (01:00→20:47)
[2017-11-06] MEDS: levETIRAcetam 1,000mg/NS100ml 100 ML IVPB SCH ×3 (01:16→17:49)
[2017-11-06] MEDS: dilTIAZem HCl 60mg tab NG SCH ×3 (05:39→21:21)
[2017-11-06 05:42] LABS: HEMATOCRIT 32.9 % (37.0-47.0); HEMOGLOBIN 10.6 G/DL (12.0-16.0); MEAN CORPUSCULAR VOLUME 90 FL (80-99); PLATELET COUNT 313 K/UL (150-450); RED BLOOD COUNT 3.64 M/UL (4.20-5.40); RED CELL DISTRIBUTION WIDTH 12.1 % (11.6-14.8); WHITE BLOOD COUNT 18.4 K/UL (4.8-10.8)
[2017-11-06 06:10] LABS: ALANINE AMINOTRANSFERASE 68 U/L (12-78); ALBUMIN 2.3 G/DL (3.4-5.0); ALBUMIN/GLOBULIN RATIO 0.6 (1.0-2.7); ALKALINE PHOSPHATASE 82 U/L (46-116); ANION GAP 7 mmol/L (5-15); ASPARTATE AMINO TRANSFERASE 46 U/L (15-37); BILIRUBIN,TOTAL 0.3 MG/DL (0.2-1.0); BLOOD UREA NITROGEN 11 mg/dL (7-18); CALCIUM 8.8 MG/DL (8.5-10.1); CARBON DIOXIDE 29 MMOL/L (21-32); CHLORIDE 105 MMOL/L (98-107); CREATININE 0.7 MG/DL (0.55-1.30); PHOSPHORUS 2.4 MG/DL (2.5-4.9); POTASSIUM 2.9 MMOL/L (3.5-5.1); SODIUM 140 MMOL/L (136-145)
--- NOTE | 2017-11-06 07:20 | General Progress Note ---
Assessment/Plan Problem List: (1) Elevated transaminase measurement ICD Codes: R74.0 - Nonspecific elevation of levels of transaminase and lactic acid dehydrogenase [LDH] SNOMED: 675254002, 478782106 (2) Cocaine abuse ICD Codes: F14.10 - Cocaine abuse, uncomplicated SNOMED: 38708981 (3) Respiratory arrest ICD Codes: R09.2 - Respiratory arrest SNOMED: 87002457 (4) Diabetes ICD Codes: E11.9 - Type 2 diabetes mellitus without complications SNOMED: 18043228 Assessment/Plan resolving LFTS elevation NGTF fu labs supportive care peg if needed Subjective ROS Limited/Unobtainable: No Allergies: Coded Allergies: ASPIRIN (Verified Allergy, Unknown, 10/30/17) PENICILLINS (Verified Allergy, Unknown, 10/30/17) UNABLE TO ASSESS (Unverified , 10/29/17) Objective Last 24 Hour Vital Signs Date Time Temp Pulse Resp B/P (MAP) Pulse Ox O2 Delivery O2 Flow Rate FiO2 11/06/17 06:00 97 14 138/67 (90) 100 11/06/17 05:39 95 144/70 11/06/17 05:15 95 14 30 11/06/17 05:00 97 14 144/70 (94) 100 11/06/17 04:00 30 11/06/17 04:00 97.9 87 20 149/80 (103) 100 97.9 11/06/17 04:00 97 11/06/17 04:00 Mechanical Ventilator 11/06/17 03:05 89 14 30 11/06/17 03:00 100 14 150/71 (97) 99 11/06/17 02:00 93 14 161/71 (101) 99 11/06/17 01:16 162/88 11/06/17 01:00 98.2 104 20 162/88 (112) 100 98.2 11/06/17 01:00 106 16 30 11/06/17 00:00 105 11/06/17 00:00 98.2 108 20 167/90 (115) 100 98.2 11/06/17 00:00 Mechanical Ventilator 11/06/17 00:00 30 11/05/17 23:40 99.6 11/05/17 23:10 111 14 30 11/05/17 23:10 99.6 11/05/17 23:00 98.0 108 20 162/85 (110) 100 98.0 11/05/17 22:00 108 20 180/87 (118) 100 11/05/17 21:14 104 164/93 11/05/17 21:00 115 20 179/83 (115) 100 11/05/17 20:55 117 21 30 11/05/17 20:00 Mechanical Ventilator 11/05/17 20:00 99.6 114 14 162/81 (108) 100 99.6 11/05/17 20:00 123 11/05/17 20:00 30 11/05/17 19:53 162/81 11/05/17 19:39 99.9 11/05/17 19:09 100.1 11/05/17 19:02 119 15 30 11/05/17 19:00 110 14 162/72 (102) 100 11/05/17 17:22 115 19 30 11/05/17 17:00 110 14 154/81 (105) 100 11/05/17 16:00 111 15 150/81 (104) 100 11/05/17 16:00 100 11/05/17 16:00 30 11/05/17 16:00 Mechanical Ventilator 11/05/17 15:24 111 20 30 11/05/17 15:00 104 21 149/72 (97) 100 11/05/17 14:00 121 19 147/106 (120) 99 11/05/17 14:00 103 152/75 11/05/17 13:00 106 21 151/74 (99) 99 11/05/17 12:40 103 20 30 11/05/17 12:00 Mechanical Ventilator 11/05/17 12:00 99 19 152/75 (100) 100 11/05/17 12:00 100 11/05/17 12:00 30 11/05/17 11:15 103 14 30 11/05/17 11:00 104 14 143/71 (95) 100 11/05/17 11:00 30 11/05/17 10:00 99.9 111 15 149/71 (97) 85 99.9 11/05/17 09:39 104 15 30 11/05/17 09:28 100.2 11/05/17 09:00 100.6 113 14 139/72 (94) 99 100.6 11/05/17 08:00 30 11/05/17 08:00 99.6 110 14 143/76 (98) 99 99.6 11/05/17 08:00 110 11/05/17 08:00 Mechanical Ventilator 11/05/17 07:23 114 15 30 Intake and Output 11/05/17 11/06/17 19:00 07:00 Intake Total 1254 ml 1533 ml Output Total 715 ml 595 ml Balance 539 ml 938 ml Free Water 300 ml 150 ml IV Total 414 ml 828 ml Tube Feeding 540 ml 495 ml Other 60 ml Output Urine Total 715 ml 495 ml Stool Total 100 ml # Bowel Movements 3 3 Laboratory Tests 11/06/17 04:55: White Blood Count 18.4H, Red Blood Count 3.64L, Hemoglobin 10.6L, Hematocrit 32.9L, Mean Corpuscular Volume 90, Mean Corpuscular Hemoglobin 29.1, Mean Corpuscular Hemoglobin Concent 32.2, Red Cell Distribution Width 12.1, Platelet Count 313, Mean Platelet Volume 6.9, Neutrophils (%) (Auto) , Lymphocytes (%) ( Auto) , Monocytes (%) (Auto) , Eosinophils (%) (Auto) , Basophils (%) (Auto) , Neutrophils % (Manual) [Pending], Lymphocytes % (Manual) [Pending], Platelet Estimate [Pending], Platelet Morphology [Pending], Sodium Level 140, Potassium Level 2.9L, Chloride Level 105, Carbon Dioxide Level 29, Anion Gap 7, Blood Urea Nitrogen 11, Creatinine 0.7, Estimat Glomerular Filtration Rate > 60, Glucose Level 109H, Calcium Level 8.8, Phosphorus Level 2.4L, Magnesium Level 1.7L, Total Bilirubin 0.3, Aspartate Amino Transf (AST/SGOT) 46H, Alanine Aminotransferase (ALT/SGPT) 68, Alkaline Phosphatase 82, Total Protein 6.4, Albumin 2.3L, Globulin 4.1, Albumin/Globulin Ratio 0.6L Height (Feet): 5 Height (Inches): 2.00 Weight (Pounds): 108 General Appearance: lethargic EENT: normal ENT inspection Neck: supple Cardiovascular: tachycardia Respiratory/Chest: decreased breath sounds Abdomen: normal bowel sounds, non tender, soft Extremities: non-tender Renaldo Sauceda MD Nov 06, 2017 07:20
[2017-11-06] MEDS: Pantoprazole Inj IVP SCH (08:26)
[2017-11-06] MEDS: Hydrocortisone 100mg Inj IV SCH (08:26)
[2017-11-06] MEDS: Phenytoin 100 MG in NS 55 ML IVPB SCH ×2 (08:27→15:49)
[2017-11-06] MEDS: Heparin 5000 units/ml inj SUBQ SCH ×2 (09:10→21:09)
--- NOTE | 2017-11-06 09:19 | Diagnostic Imaging Report ---
EXAM: XR Chest, 1 View CLINICAL HISTORY: DYSPNEA TECHNIQUE: Frontal view of the chest. COMPARISON: Chest x-ray dated 11/05/18 FINDINGS: Lungs: Unchanged appearance of prominent interstitial markings. No new focal consolidations. Pleural space: Unremarkable. The costophrenic angles are sharp. No visible pneumothorax. Heart: Unremarkable. No cardiomegaly. Mediastinum: Unremarkable. Bones/joints: Status post left shoulder replacement with intact appearance of the hardware. Vasculature: Atherosclerotic calcifications are noted within the aortic arch. Tubes, lines and devices: Unchanged positioning of endotracheal tube, right subclavian central venous catheter, and nasogastric tube. IMPRESSION: No significant interval change compared to the prior exam. Stable appearance of lines and tubes. Persistent mildly increased interstitial markings.
--- NOTE | 2017-11-06 10:46 | General Progress Note ---
Assessment/Plan Problem List: (1) Renal insufficiency ICD Codes: N28.9 - Disorder of kidney and ureter, unspecified SNOMED: 107559046, 753890580 (2) UTI (urinary tract infection) ICD Codes: N39.0 - Urinary tract infection, site not specified SNOMED: 90124647 (3) Seizure ICD Codes: R56.9 - Unspecified convulsions SNOMED: 23985464 (4) HTN (hypertension) ICD Codes: I10 - Essential (primary) hypertension SNOMED: 56340865 (5) Diabetes ICD Codes: E11.9 - Type 2 diabetes mellitus without complications SNOMED: 03122243 Status: stable, progressing Assessment/Plan vent abx detox neph f/u cbc bmp am Subjective Constitutional: Reports: weakness Allergies: Coded Allergies: ASPIRIN (Verified Allergy, Unknown, 10/30/17) PENICILLINS (Verified Allergy, Unknown, 10/30/17) UNABLE TO ASSESS (Unverified , 10/29/17) All Systems: reviewed and negative except above Subjective intubated sedated in icu Objective Last 24 Hour Vital Signs Date Time Temp Pulse Resp B/P (MAP) Pulse Ox O2 Delivery O2 Flow Rate FiO2 11/06/17 09:00 98 14 139/72 (94) 99 11/06/17 08:00 92 11/06/17 08:00 30 11/06/17 08:00 Mechanical Ventilator 11/06/17 08:00 94 14 143/68 (93) 100 11/06/17 07:10 87 14 30 11/06/17 07:00 90 14 164/70 (101) 100 11/06/17 06:00 97 14 138/67 (90) 100 11/06/17 05:39 95 144/70 11/06/17 05:15 95 14 30 11/06/17 05:00 97 14 144/70 (94) 100 11/06/17 04:00 30 11/06/17 04:00 97.9 87 20 149/80 (103) 100 97.9 11/06/17 04:00 97 11/06/17 04:00 Mechanical Ventilator 11/06/17 03:05 89 14 30 11/06/17 03:00 100 14 150/71 (97) 99 11/06/17 02:00 93 14 161/71 (101) 99 9/16/18 01:16 162/88 11/06/17 01:00 98.2 104 20 162/88 (112) 100 98.2 11/06/17 01:00 106 16 30 11/06/17 00:00 105 11/06/17 00:00 98.2 108 20 167/90 (115) 100 98.2 11/06/17 00:00 Mechanical Ventilator 11/06/17 00:00 30 11/05/17 23:40 99.6 11/05/17 23:10 111 14 30 11/05/17 23:10 99.6 11/05/17 23:00 98.0 108 20 162/85 (110) 100 98.0 11/05/17 22:00 108 20 180/87 (118) 100 11/05/17 21:14 104 164/93 11/05/17 21:00 115 20 179/83 (115) 100 11/05/17 20:55 117 21 30 11/05/17 20:00 Mechanical Ventilator 11/05/17 20:00 99.6 114 14 162/81 (108) 100 99.6 11/05/17 20:00 123 11/05/17 20:00 30 11/05/17 19:53 162/81 11/05/17 19:39 99.9 11/05/17 19:09 100.1 11/05/17 19:02 119 15 30 11/05/17 19:00 110 14 162/72 (102) 100 11/05/17 17:22 115 19 30 11/05/17 17:00 110 14 154/81 (105) 100 11/05/17 16:00 111 15 150/81 (104) 100 11/05/17 16:00 100 11/05/17 16:00 30 11/05/17 16:00 Mechanical Ventilator 11/05/17 15:24 111 20 30 11/05/17 15:00 104 21 149/72 (97) 100 11/05/17 14:00 121 19 147/106 (120) 99 11/05/17 14:00 103 152/75 11/05/17 13:00 106 21 151/74 (99) 99 11/05/17 12:40 103 20 30 11/05/17 12:00 Mechanical Ventilator 11/05/17 12:00 99 19 152/75 (100) 100 11/05/17 12:00 100 11/05/17 12:00 30 11/05/17 11:15 103 14 30 11/05/17 11:00 104 14 143/71 (95) 100 11/05/17 11:00 30 Intake and Output 11/05/17 11/06/17 19:00 07:00 Intake Total 1254 ml 1578 ml Output Total 715 ml 640 ml Balance 539 ml 938 ml Free Water 300 ml 150 ml IV Total 414 ml 828 ml Tube Feeding 540 ml 540 ml Other 60 ml Output Urine Total 715 ml 540 ml Stool Total 100 ml # Bowel Movements 3 3 Laboratory Tests 11/06/17 04:55: White Blood Count 18.4H, Red Blood Count 3.64L, Hemoglobin 10.6L, Hematocrit 32.9L, Mean Corpuscular Volume 90, Mean Corpuscular Hemoglobin 29.1, Mean Corpuscular Hemoglobin Concent 32.2, Red Cell Distribution Width 12.1, Platelet Count 313, Mean Platelet Volume 6.9, Neutrophils (%) (Auto) , Lymphocytes (%) ( Auto) , Monocytes (%) (Auto) , Eosinophils (%) (Auto) , Basophils (%) (Auto) , Differential Total Cells Counted 100, Neutrophils % (Manual) 74, Lymphocytes % ( Manual) 21, Monocytes % (Manual) 5, Eosinophils % (Manual) 0, Basophils % ( Manual) 0, Band Neutrophils 0, Platelet Estimate Adequate, Platelet Morphology Normal, Hypochromasia 1+, Sodium Level 140, Potassium Level 2.9L, Chloride Level 105, Carbon Dioxide Level 29, Anion Gap 7, Blood Urea Nitrogen 11, Creatinine 0.7, Estimat Glomerular Filtration Rate > 60, Glucose Level 109H, Calcium Level 8.8, Phosphorus Level 2.4L, Magnesium Level 1.7L, Total Bilirubin 0.3, Aspartate Amino Transf (AST/SGOT) 46H, Alanine Aminotransferase (ALT/SGPT) 68, Alkaline Phosphatase 82, Total Protein 6.4, Albumin 2.3L, Globulin 4.1, Albumin/Globulin Ratio 0.6L 11/06/17 09:08: Arterial Blood pH 7.480H, Arterial Blood Partial Pressure CO2 34.6L, Arterial Blood Partial Pressure O2 72.2L, Arterial Blood HCO3 25.5, Arterial Blood Oxygen Saturation 95.0, Arterial Blood Base Excess 2.2, Aj Test Positive Height (Feet): 5 Height (Inches): 2.00 Weight (Pounds): 108 General Appearance: lethargic EENT: normal ENT inspection Neck: normal alignment Cardiovascular: normal peripheral pulses, normal rate, regular rhythm Respiratory/Chest: chest wall non-tender, lungs clear, normal breath sounds Abdomen: normal bowel sounds, non tender, soft Extremities: normal inspection Edema: no edema noted Arm (L), no edema noted Arm (R), no edema noted Leg (L), no edema noted Leg (R), no edema noted Pedal (L), no edema noted Pedal (R), no edema noted Generalized Neurologic: motor weakness Skin: normal pigmentation, warm/dry Josias Skinner DO Nov 06, 2017 10:46
--- NOTE | 2017-11-06 12:22 | Pulmonolgy Critical Care Note ---
Critical Care - Asmt/Plan Problems: (1) Respiratory arrest (2) Aspiration pneumonia (3) Seizure (4) Pneumothorax on right (5) Diabetes (6) Cocaine abuse Respiratory: monitor respiratory rate, adjust FIO2, CXR Cardiac: continue to monitor HR/BP Renal: F/U I&O, keep IV fluid Infectious Disease: continue antibiotics Gastrointestinal: continue feedings/current rate Endocrine: check TSH Hematologic: transfuse if hgb<8.5 Neurologic: keep patient comfortable Affect: PRN ativan Discussed with: nurses, consultants, high risk case managerrig manager - Objective Last 24 Hour Vital Signs Date Time Temp Pulse Resp B/P (MAP) Pulse Ox O2 Delivery O2 Flow Rate FiO2 11/06/17 11:11 98 11/06/17 11:08 97 16 30 11/06/17 09:00 98 14 139/72 (94) 99 11/06/17 08:46 95 14 30 11/06/17 08:00 92 11/06/17 08:00 30 11/06/17 08:00 Mechanical Ventilator 11/06/17 08:00 94 14 143/68 (93) 100 11/06/17 07:10 87 14 30 11/06/17 07:00 90 14 164/70 (101) 100 11/06/17 06:00 97 14 138/67 (90) 100 11/06/17 05:39 95 144/70 11/06/17 05:15 95 14 30 11/06/17 05:00 97 14 144/70 (94) 100 11/06/17 04:00 30 11/06/17 04:00 97.9 87 20 149/80 (103) 100 97.9 11/06/17 04:00 97 11/06/17 04:00 Mechanical Ventilator 11/06/17 03:05 89 14 30 11/06/17 03:00 100 14 150/71 (97) 99 11/06/17 02:00 93 14 161/71 (101) 99 11/06/17 01:16 162/88 11/06/17 01:00 98.2 104 20 162/88 (112) 100 98.2 11/06/17 01:00 106 16 30 11/06/17 00:00 105 11/06/17 00:00 98.2 108 20 167/90 (115) 100 98.2 11/06/17 00:00 Mechanical Ventilator 11/06/17 00:00 30 11/05/17 23:40 99.6 11/05/17 23:10 111 14 30 11/05/17 23:10 99.6 11/05/17 23:00 98.0 108 20 162/85 (110) 100 98.0 11/05/17 22:00 108 20 180/87 (118) 100 11/05/17 21:14 104 164/93 11/05/17 21:00 115 20 179/83 (115) 100 11/05/17 20:55 117 21 30 11/05/17 20:00 Mechanical Ventilator 11/05/17 20:00 99.6 114 14 162/81 (108) 100 99.6 11/05/17 20:00 123 11/05/17 20:00 30 11/05/17 19:53 162/81 11/05/17 19:39 99.9 11/05/17 19:09 100.1 11/05/17 19:02 119 15 30 11/05/17 19:00 110 14 162/72 (102) 100 11/05/17 17:22 115 19 30 11/05/17 17:00 110 14 154/81 (105) 100 11/05/17 16:00 111 15 150/81 (104) 100 11/05/17 16:00 100 11/05/17 16:00 30 11/05/17 16:00 Mechanical Ventilator 11/05/17 15:24 111 20 30 11/05/17 15:00 104 21 149/72 (97) 100 11/05/17 14:00 121 19 147/106 (120) 99 11/05/17 14:00 103 152/75 11/05/17 13:00 106 21 151/74 (99) 99 11/05/17 12:40 103 20 30 Status: obtunded Condition: critical HEENT: atraumatic Heart: HR/BP stable, regular Abdomen: active bowel sounds Extremities: no C/C/E Decubiti: location Micro: Microbiology Date/Time Source Procedure Growth Status 11/04/17 21:30 Stool Clostridium difficile Toxin Assay - Final Complete Accucheck: 102 Critical Care - Subjective ROS Limited/Unobtainable: No Condition: critical EKG Rhythm: Sinus Rhythm FI02: 30 Vent Support Breath Rate: 10 Vent Support Mode: IMV/SIMV Vent Tidal Volume: 600 Sputum Amount: Moderate PEEP: 0.0 PIP: 36 Tube Feeding Amount: 45 I&O: Intake and Output 11/05/17 11/06/17 19:00 07:00 Intake Total 1254 ml 1578 ml Output Total 715 ml 640 ml Balance 539 ml 938 ml Free Water 300 ml 150 ml IV Total 414 ml 828 ml Tube Feeding 540 ml 540 ml Other 60 ml Output Urine Total 715 ml 540 ml Stool Total 100 ml # Bowel Movements 3 3 ET-Tube: 7.5 ET Position: 23 Labs: Laboratory Tests Test 11/06/17 04:55 11/06/17 09:08 White Blood Count 18.4 K/UL (4.8-10.8) H Red Blood Count 3.64 M/UL (4.20-5.40) L Hemoglobin 10.6 G/DL (12.0-16.0) L Hematocrit 32.9 % (37.0-47.0) L Mean Corpuscular Volume 90 FL (80-99) Mean Corpuscular Hemoglobin 29.1 PG (27.0-31.0) Mean Corpuscular Hemoglobin Concent 32.2 G/DL (32.0-36.0) Red Cell Distribution Width 12.1 % (11.6-14.8) Platelet Count 313 K/UL (150-450) Mean Platelet Volume 6.9 FL (6.5-10.1) Neutrophils (%) (Auto) % (45.0-75.0) Lymphocytes (%) (Auto) % (20.0-45.0) Monocytes (%) (Auto) % (1.0-10.0) Eosinophils (%) (Auto) % (0.0-3.0) Basophils (%) (Auto) % (0.0-2.0) Differential Total Cells Counted 100 Neutrophils % (Manual) 74 % (45-75) Lymphocytes % (Manual) 21 % (20-45) Monocytes % (Manual) 5 % (1-10) Eosinophils % (Manual) 0 % (0-3) Basophils % (Manual) 0 % (0-2) Band Neutrophils 0 % (0-8) Platelet Estimate Adequate Platelet Morphology Normal Hypochromasia 1+ Sodium Level 140 MMOL/L (136-145) Potassium Level 2.9 MMOL/L (3.5-5.1) L Chloride Level 105 MMOL/L (98-107) Carbon Dioxide Level 29 MMOL/L (21-32) Anion Gap 7 mmol/L (5-15) Blood Urea Nitrogen 11 mg/dL (7-18) Creatinine 0.7 MG/DL (0.55-1.30) Estimat Glomerular Filtration Rate > 60 mL/min (>60) Glucose Level 109 MG/DL (74-106) H Calcium Level 8.8 MG/DL (8.5-10.1) Phosphorus Level 2.4 MG/DL (2.5-4.9) L Magnesium Level 1.7 MG/DL (1.8-2.4) L Total Bilirubin 0.3 MG/DL (0.2-1.0) Aspartate Amino Transf (AST/SGOT) 46 U/L (15-37) H Alanine Aminotransferase (ALT/SGPT) 68 U/L (12-78) Alkaline Phosphatase 82 U/L (46-116) Total Protein 6.4 G/DL (6.4-8.2) Albumin 2.3 G/DL (3.4-5.0) L Globulin 4.1 g/dL Albumin/Globulin Ratio 0.6 (1.0-2.7) L Arterial Blood pH 7.480 (7.350-7.450) Arterial Blood Partial Pressure CO2 34.6 mmHg (35.0-45.0) L Arterial Blood Partial Pressure O2 72.2 mmHg (75.0-100.0) L Arterial Blood HCO3 25.5 mmol/L (22.0-26.0) Arterial Blood Oxygen Saturation 95.0 % (92.0-98.0) Arterial Blood Base Excess 2.2 Aj Test Positive Evan Purcell MD Nov 06, 2017 12:21
--- NOTE | 2017-11-06 12:42 | Neurology Progress Note ---
Interim History Interim History Interim History Ms. Robertson continues to be in a comatose state. She does however exhibit spontaneous eye opening and closing. She is still exhibiting decerebrate posturing. She has had no seizures or seizure like phenomena. She continues to be artificially ventilated. There has been no improvement in her neurologic state. Review of Systems Neuro Review of Systems Unable to obtain. Objective Physical Exam Last Vital Signs Date Time Temp Pulse Resp B/P (MAP) Pulse Ox O2 Delivery O2 Flow Rate FiO2 11/06/17 11:11 98 11/06/17 11:08 97 16 30 11/06/17 09:00 139/72 (94) 11/06/17 08:00 Mechanical Ventilator 11/06/17 04:00 97.9 97.9 Laboratory Tests Test 11/06/17 04:55 11/06/17 09:08 White Blood Count 18.4 K/UL (4.8-10.8) H Red Blood Count 3.64 M/UL (4.20-5.40) L Hemoglobin 10.6 G/DL (12.0-16.0) L Hematocrit 32.9 % (37.0-47.0) L Mean Corpuscular Volume 90 FL (80-99) Mean Corpuscular Hemoglobin 29.1 PG (27.0-31.0) Mean Corpuscular Hemoglobin Concent 32.2 G/DL (32.0-36.0) Red Cell Distribution Width 12.1 % (11.6-14.8) Platelet Count 313 K/UL (150-450) Mean Platelet Volume 6.9 FL (6.5-10.1) Neutrophils (%) (Auto) % (45.0-75.0) Lymphocytes (%) (Auto) % (20.0-45.0) Monocytes (%) (Auto) % (1.0-10.0) Eosinophils (%) (Auto) % (0.0-3.0) Basophils (%) (Auto) % (0.0-2.0) Differential Total Cells Counted 100 Neutrophils % (Manual) 74 % (45-75) Lymphocytes % (Manual) 21 % (20-45) Monocytes % (Manual) 5 % (1-10) Eosinophils % (Manual) 0 % (0-3) Basophils % (Manual) 0 % (0-2) Band Neutrophils 0 % (0-8) Platelet Estimate Adequate Platelet Morphology Normal Hypochromasia 1+ Sodium Level 140 MMOL/L (136-145) Potassium Level 2.9 MMOL/L (3.5-5.1) L Chloride Level 105 MMOL/L (98-107) Carbon Dioxide Level 29 MMOL/L (21-32) Anion Gap 7 mmol/L (5-15) Blood Urea Nitrogen 11 mg/dL (7-18) Creatinine 0.7 MG/DL (0.55-1.30) Estimat Glomerular Filtration Rate > 60 mL/min (>60) Glucose Level 109 MG/DL (74-106) H Calcium Level 8.8 MG/DL (8.5-10.1) Phosphorus Level 2.4 MG/DL (2.5-4.9) L Magnesium Level 1.7 MG/DL (1.8-2.4) L Total Bilirubin 0.3 MG/DL (0.2-1.0) Aspartate Amino Transf (AST/SGOT) 46 U/L (15-37) H Alanine Aminotransferase (ALT/SGPT) 68 U/L (12-78) Alkaline Phosphatase 82 U/L (46-116) Total Protein 6.4 G/DL (6.4-8.2) Albumin 2.3 G/DL (3.4-5.0) L Globulin 4.1 g/dL Albumin/Globulin Ratio 0.6 (1.0-2.7) L Arterial Blood pH 7.480 (7.350-7.450) Arterial Blood Partial Pressure CO2 34.6 mmHg (35.0-45.0) L Arterial Blood Partial Pressure O2 72.2 mmHg (75.0-100.0) L Arterial Blood HCO3 25.5 mmol/L (22.0-26.0) Arterial Blood Oxygen Saturation 95.0 % (92.0-98.0) Arterial Blood Base Excess 2.2 Aj Test Positive Neurologic Exam Objective PHYSICAL EXAMINATION: GENERAL: She is a well-developed, cachectic, lean, black lady, lying in an ICU bed, in no acute distress, connected to a ventilator via an orotracheal tube. HEAD: Normocephalic and atraumatic. EENT: Examination benign. NECK: No neck rigidity was observed. NEUROLOGIC EXAMINATION: MENTAL STATUS EXAMINATION: She was comatose and did not respond even to deep painful stimuli. She was decerebrating spontaneously. Further mental status testing was impossible. SPEECH: Could not be tested. LANGUAGE: Could not be tested. CRANIAL NERVE EXAMINATION: II: She did not blink to threat. III, IV & : The external ocular movements were present on oculocephalic maneuvers. The pupils were 3 mm in diameter and reactive sluggishly to light. V & VII: The corneal reflexes were present, but significantly diminished. VIII: She did not respond to sounds and had no nystagmus. IX & X: The gag reflex was present but delayed on manipulating the endotracheal tube. XI: The sternocleidomastoids and trapezii could not be tested. XII: Could not be tested. MOTOR SYSTEM: The tone was increased in all four extremities with severe spasticity. Examination of muscle mass revealed generalized muscle wasting. Examination of power was impossible to perform because even on applying deep painful stimuli, no movements were seen. SENSORY EXAMINATION: She did not respond even to deep pain. REFLEXES: 1+ and bilaterally symmetrical at the biceps, triceps, brachioradialis , and knees. 0 at both ankles. The plantar responses were extensor bilaterally. COORDINATION, STANCE & GAIT: Could not be tested. Impression/Recommendations Diagnostic Impression 1. Ms. Polly Robertson is a 57-year-old, right-handed, black lady, who does have a past history of polysubstance abuse with her recent drug of choice being cocaine, a seizure disorder, and chronic pain, who was found down in her bathroom at home with vomitus in her mouth. She then was noted to stop breathing and this progressed to cardiac failure. The paramedics were called in and she had to have advanced cardiac life support before she could be resuscitated. She was then transported to the [facility] emergency room and on the way here she was noted to have a generalized seizure. Since then, she has had multiple seizures, however, at this point in time, they are well controlled on the present regimen. 2. She continues to be in a comatose state. She does however exhibit spontaneous eye opening and closing. She is still exhibiting decerebrate posturing. She has had no seizures or seizure like phenomena. She continues to be artificially ventilated. There has been no improvement in her neurologic state. 3. On neurological examination, at this time, she is comatose and does not respond even to deep pain. She exhibits spontaneous decerebration. She does not demonstrate any focal or lateralizing findings. 4. The CT scan of the brain without contrast is benign for acute pathology. 5. Her latest laboratory data on my initial evaluation revealed that her WBC count was elevated to 17,600 with predominantly 79% being neutrophils and 15% being lymphocytes and monocytes. Her arterial blood gas revealed pCO2 low at 21.2, pO2 at 154, and pH of 7.49. Her chemistry panel revealed a creatinine elevated to 1.7. Her AST was elevated at 255, ALT elevated at 251, and alkaline phosphatase elevated at 142. Her albumin was low at 2.9. Her Urinalysis revealed 1+ leukocyte esterase, 20- 30 red blood cells, and 5-10 white blood cells per high-power field. The urine toxicology screen was positive for cocaine. 6. Her EEG done on 10/31/17 revealed a severe encephalopathy and bilateral frontal epileptogenic foci with inter-ictal discharges at time with a large field. 7. The patient's history, neurological examination, laboratory data and imaging studies are most compatible with seizures due to a hypoxic/ischemic cerebral insult and/or cocaine intoxication. 8. The prognosis for recovery of cerebral function is dismal. Recommendations 1. Continue present management. 2. Continue to treat the patient's infectious process vigorously. 3. Continue Dilantin 100 mg intravenously q.8 h. 4. Continue Keppra 1 G intravenously every 8 hours. 5. In light of her poor prognosis make decision regarding intensity of care. Denisse Lester M.D., M.S.P.H. DENISSE LESTER Nov 06, 2017 12:42
[2017-11-06] MEDS ORDERED: NS 500ML ONE (16:40)
[2017-11-06] MEDS: Dyna-Hex 2% Top Sol 2oz TOPIC SCH (21:00)
[2017-11-07] VITALS (24 sets, daily range): BP systolic 128–152; BP diastolic 56–84
[2017-11-07] MEDS: NovoLOG Insulin Flexpen SUBQ SCH ×6 (01:00→20:32)
[2017-11-07] MEDS: levETIRAcetam 1,000mg/NS100ml 100 ML IVPB SCH ×3 (01:00→16:12)
[2017-11-07 05:32] LABS: BASOPHILS % (AUTO) 0.8 % (0.0-2.0); EOSINOPHILS % (AUTO) 0.7 % (0.0-3.0); HEMATOCRIT 31.8 % (37.0-47.0); HEMOGLOBIN 10.6 G/DL (12.0-16.0); LYMPHOCYTES % (AUTO) 19.4 % (20.0-45.0); MEAN CORPUSCULAR VOLUME 91 FL (80-99); NEUTROPHILS % (AUTO) 70.1 % (45.0-75.0); PLATELET COUNT 346 K/UL (150-450); RED BLOOD COUNT 3.49 M/UL (4.20-5.40); RED CELL DISTRIBUTION WIDTH 12.6 % (11.6-14.8); WHITE BLOOD COUNT 14.4 K/UL (4.8-10.8)
[2017-11-07 05:57] LABS: PHOSPHORUS 2.8 MG/DL (2.5-4.9)
[2017-11-07] MEDS: dilTIAZem HCl 60mg tab NG SCH ×3 (06:01→22:20)
[2017-11-07 06:06] LABS: ALANINE AMINOTRANSFERASE 76 U/L (12-78); ALBUMIN 2.3 G/DL (3.4-5.0); ALBUMIN/GLOBULIN RATIO 0.5 (1.0-2.7); ALKALINE PHOSPHATASE 86 U/L (46-116); ANION GAP 9 mmol/L (5-15); ASPARTATE AMINO TRANSFERASE 61 U/L (15-37); BILIRUBIN,TOTAL 0.2 MG/DL (0.2-1.0); BLOOD UREA NITROGEN 13 mg/dL (7-18); CALCIUM 8.7 MG/DL (8.5-10.1); CARBON DIOXIDE 28 MMOL/L (21-32); CHLORIDE 106 MMOL/L (98-107); CREATININE 0.7 MG/DL (0.55-1.30); POTASSIUM 3.1 MMOL/L (3.5-5.1); SODIUM 143 MMOL/L (136-145)
--- NOTE | 2017-11-07 07:04 | General Progress Note ---
Assessment/Plan Problem List: (1) Hypoglycemia ICD Codes: E16.2 - Hypoglycemia, unspecified SNOMED: 756668754 (2) SLE (systemic lupus erythematosus) ICD Codes: M32.9 - Systemic lupus erythematosus, unspecified SNOMED: 55621038 (3) Cocaine abuse ICD Codes: F14.10 - Cocaine abuse, uncomplicated SNOMED: 01580542 (4) Elevated transaminase measurement ICD Codes: R74.0 - Nonspecific elevation of levels of transaminase and lactic acid dehydrogenase [LDH] SNOMED: 254100030, 779225353 (5) Diabetes ICD Codes: E11.9 - Type 2 diabetes mellitus without complications SNOMED: 39546730 Assessment/Plan - continue SoluCortef 50 mg - continue BG monitoring - hypoglycemia protocol - NISS low dose Subjective ROS Limited/Unobtainable: Yes Allergies: Coded Allergies: ASPIRIN (Verified Allergy, Unknown, 10/30/17) PENICILLINS (Verified Allergy, Unknown, 10/30/17) UNABLE TO ASSESS (Unverified , 10/29/17) Subjective intubated in icu Objective Last 24 Hour Vital Signs Date Time Temp Pulse Resp B/P (MAP) Pulse Ox O2 Delivery O2 Flow Rate FiO2 11/07/17 06:01 96 147/79 11/07/17 06:00 96 21 147/79 (101) 100 11/07/17 05:28 102 19 30 11/07/17 05:00 92 21 146/75 (98) 100 11/07/17 04:00 Mechanical Ventilator 11/07/17 04:00 110 11/07/17 04:00 98.3 113 21 148/72 (97) 100 98.3 11/07/17 03:00 94 21 131/77 (95) 100 11/07/17 02:29 102 18 30 11/07/17 02:00 99 21 145/71 (95) 100 11/07/17 01:05 96 18 30 11/07/17 01:00 103 21 141/73 (95) 100 11/07/17 00:00 30 11/07/17 00:00 Mechanical Ventilator 11/07/17 00:00 103 11/07/17 00:00 98.9 99 21 152/72 (98) 100 98.9 11/06/17 23:00 104 21 154/73 (100) 100 11/06/17 22:50 105 18 30 11/06/17 22:00 99 21 143/65 (91) 100 18 21:21 120 167/80 11/06/17 21:00 112 21 162/82 (108) 100 11/06/17 20:35 110 18 30 11/06/17 20:00 Mechanical Ventilator 11/06/17 20:00 110 18 20:00 30 11/06/17 20:00 99.0 110 20 149/77 (101) 100 99.0 11/06/17 19:45 104 23 30 11/06/17 19:00 104 21 152/81 (104) 100 11/06/17 18:00 114 25 161/78 (105) 100 11/06/17 18:00 99.8 104 22 161/78 (105) 100 99.8 11/06/17 17:00 100 14 145/92 (109) 100 11/06/17 16:54 102 22 30 11/06/17 16:00 99.1 113 24 144/75 (98) 100 99.1 11/06/17 16:00 30 11/06/17 16:00 108 11/06/17 16:00 Mechanical Ventilator 11/06/17 15:00 96 21 147/75 (99) 99 11/06/17 14:34 92 21 30 11/06/17 14:27 91 137/69 11/06/17 14:00 99 20 147/75 (99) 98 11/06/17 13:00 94 21 137/68 (91) 98 11/06/17 12:30 107 21 30 11/06/17 12:00 98 21 165/87 (113) 98 11/06/17 12:00 97 11/06/17 12:00 30 11/06/17 12:00 Mechanical Ventilator 11/06/17 11:11 98 11/06/17 11:08 97 16 30 11/06/17 11:00 96 14 155/75 (101) 98 11/06/17 10:00 99.1 88 14 162/80 (107) 98 99.1 11/06/17 09:00 98 14 139/72 (94) 99 11/06/17 08:46 95 14 30 11/06/17 08:00 92 11/06/17 08:00 30 9/16/18 08:00 Mechanical Ventilator 11/06/17 08:00 94 14 143/68 (93) 100 11/06/17 07:10 87 14 30 Intake and Output 11/06/17 11/07/17 19:00 07:00 Intake Total 1528 ml 927 ml Output Total 840 ml 620 ml Balance 688 ml 307 ml Free Water 60 ml 150 ml IV Total 928 ml 357 ml Tube Feeding 540 ml 360 ml Other 60 ml Output Urine Total 840 ml 620 ml # Bowel Movements 1 3 Laboratory Tests 11/06/17 09:08: Arterial Blood pH 7.480H, Arterial Blood Partial Pressure CO2 34.6L, Arterial Blood Partial Pressure O2 72.2L, Arterial Blood HCO3 25.5, Arterial Blood Oxygen Saturation 95.0, Arterial Blood Base Excess 2.2, Aj Test Positive 11/07/17 04:15: White Blood Count 14.4H, Red Blood Count 3.49L, Hemoglobin 10.6L, Hematocrit 31.8L, Mean Corpuscular Volume 91, Mean Corpuscular Hemoglobin 30.4, Mean Corpuscular Hemoglobin Concent 33.5, Red Cell Distribution Width 12.6, Platelet Count 346, Mean Platelet Volume 6.3L, Neutrophils (%) (Auto) 70.1, Lymphocytes ( %) (Auto) 19.4L, Monocytes (%) (Auto) 9.0, Eosinophils (%) (Auto) 0.7, Basophils (%) (Auto) 0.8, Sodium Level 143, Potassium Level 3.1L, Chloride Level 106, Carbon Dioxide Level 28, Anion Gap 9, Blood Urea Nitrogen 13, Creatinine 0.7, Estimat Glomerular Filtration Rate > 60, Glucose Level 109H, Calcium Level 8.7, Phosphorus Level 2.8, Magnesium Level 1.8, Total Bilirubin 0.2, Aspartate Amino Transf (AST/SGOT) 61H, Alanine Aminotransferase (ALT/SGPT) 76, Alkaline Phosphatase 86, Total Protein 6.7, Albumin 2.3L, Globulin 4.4, Albumin/Globulin Ratio 0.5L Height (Feet): 5 Height (Inches): 2.00 Weight (Pounds): 107 General Appearance: lethargic EENT: other - ETT / NGT Cardiovascular: tachycardia Respiratory/Chest: decreased breath sounds Abdomen: normal bowel sounds Pelvis: normal external exam Edema: 1+ Arm (L), 1+ Arm (R), 1+ Leg (L), 1+ Leg (R), 1+ Pedal (L), 1+ Pedal ( R), 1+ Generalized Objective Current Medications Medications (Trade) Dose Ordered Sig/Yung Route PRN Reason Start Time Stop Time Status Last Admin Dose Admin Acetaminophen (Tylenol) 650 mg Q4H PRN RECTAL Prn Headache/Temp > 101 10/30/17 16:45 11/29/17 16:44 10/31/17 21:24 Acetaminophen (Tylenol) 650 mg Q6H PRN NG Mild Pain/Temp > 100.5 11/03/17 22:00 12/03/17 21:59 11/05/17 19:09 Chlorhexidine Gluconate (Sunita-Hex 2%) 1 applic DAILY@2000 TOPIC 10/30/17 20:00 11/29/17 19:59 11/06/17 21:00 Clonidine HCl (Catapres Tab) 0.1 mg Q4H PRN ORAL for SBP >160 11/01/17 13:00 12/01/17 12:59 11/06/17 01:16 Dextrose (Dextrose 50%) 25 ml STAT PRN IV Hypoglycemia 11/03/17 18:00 12/03/17 17:59 Dextrose (Dextrose 50%) 50 ml STAT PRN IV Hypoglycemia 11/03/17 18:00 12/03/17 17:59 Diltiazem HCl (Cardizem) 60 mg EVERY 8 HOURS NG 11/05/17 22:00 12/05/17 21:59 11/07/17 06:01 Haloperidol Lactate 5 mg/ Dextrose 56 ml @ 112 mls/hr Q1H PRN IVPB Agitation 11/02/17 10:00 12/02/17 09:59 11/02/17 12:53 Heparin Sodium (Porcine) (Heparin 5000 units/ml) 5,000 units EVERY 12 HOURS SUBQ 10/30/17 09:00 11/29/17 08:59 11/06/17 21:09 Hydrocortisone (Solu-CORTEF) 50 mg DAILY IV 11/03/17 09:00 11/30/17 18:29 11/06/17 08:26 Insulin Aspart (NovoLOG) Q4HR SUBQ 11/03/17 20:00 12/03/17 19:59 11/06/17 12:40 Levetiracetam 100 ml @ 400 mls/hr Q8H IVPB 10/30/17 17:00 11/29/17 16:59 11/07/17 01:00 Levofloxacin 150 ml @ 100 mls/hr Q24H IVPB 11/04/17 14:30 11/11/17 14:29 11/06/17 14:27 Metronidazole 100 ml @ 100 mls/hr Q8H IVPB 10/30/17 11:00 11/11/17 10:59 11/07/17 03:00 Nitroglycerin (Ntg) 0.4 mg Q5M PRN SL Prn Chest Pain 10/30/17 08:00 11/29/17 07:59 Ondansetron HCl (Zofran) 4 mg Q6H PRN IVP Nausea & Vomiting 10/30/17 08:00 11/29/17 07:59 Pantoprazole (Protonix) 40 mg DAILY IVP 11/02/17 09:00 12/02/17 08:59 11/06/17 08:26 Phenytoin 100 mg/ Sodium Chloride 57 ml @ 114 mls/hr [id number] PHENYTOIN IVPB 10/30/17 16:00 11/29/17 15:59 11/07/17 00:00 Item Value Date Time Bedside Blood Glucose 102 mg/dl 11/07/17 0500 Bedside Blood Glucose 101 mg/dl 11/07/17 0100 Bedside Blood Glucose 105 mg/dl 11/06/17 2047 Bedside Blood Glucose 120 mg/dl 11/06/17 1700 Bedside Blood Glucose 123 mg/dl H 11/06/17 1240 Bedside Blood Glucose 102 mg/dl 11/06/17 0900 Bedside Blood Glucose 104 mg/dl 11/06/17 0500 Bedside Blood Glucose 102 mg/dl 11/06/17 0100 Salvador Garcia MD Nov 07, 2017 07:04
[2017-11-07] MEDS: Phenytoin 100 MG in NS 55 ML IVPB SCH ×4 (08:00→16:13)
[2017-11-07] MEDS: Hydrocortisone 100mg Inj IV SCH (08:01)
[2017-11-07] MEDS: Pantoprazole Inj IVP SCH (08:01)
[2017-11-07] MEDS: Heparin 5000 units/ml inj SUBQ SCH ×2 (08:03→20:32)
--- NOTE | 2017-11-07 09:54 | Infectious Diseases Prog Note ---
Assessment/Plan Assessment/Plan 57 yo female who presented to the ED on 10/30/17 after pulmonary arrest. Sepsis - Probable Asp PNA On Abx 10/30 Sputum Cultures - Predominantly NF - +1 Steno Will hold off Tx of Steno as patient improving 10/31 Urine Cx - NGTD Leukocytosis - WBCs 16 after seizure No Fevers Seizures - Had Seizure on route to ED 10/30/17 and in the ICU as well Drug abuse - Pos for cocaine Arthritis Chronic pain. P: - Levofloxacin #/10 - To cover Stenotrophomonas as she had new fevers - 11/04 Ceftriaxone #3 - Continue Flagyl #/ for asp PNA and UTI - 10/31 Vancomycin #1 - 10/31 Aztreonam - 10/30 SP Ceftriaxone - Monitor CBC and Temps - Vent management per pulm - Prognosis discussion with family per primary - Poor prognosis We will continue to follow the patient during this hospitalization. Subjective Allergies: Coded Allergies: ASPIRIN (Verified Allergy, Unknown, 10/30/17) PENICILLINS (Verified Allergy, Unknown, 10/30/17) UNABLE TO ASSESS (Unverified , 10/29/17) Subjective Afebrile On 30% FiO2 No change in neuro status Objective Vital Signs Last 24 Hour Vital Signs Date Time Temp Pulse Resp B/P (MAP) Pulse Ox O2 Delivery O2 Flow Rate FiO2 11/07/17 09:00 86 12 152/75 (100) 100 11/07/17 08:00 30 11/07/17 08:00 Mechanical Ventilator 11/07/17 08:00 99.0 98 13 143/75 (97) 100 99.0 11/07/17 08:00 94 11/07/17 07:30 91 12 30 11/07/17 07:00 89 21 142/63 (89) 100 11/07/17 06:01 96 147/79 11/07/17 06:00 96 21 147/79 (101) 100 11/07/17 05:28 102 19 30 11/07/17 05:00 92 21 146/75 (98) 100 11/07/17 04:00 Mechanical Ventilator 11/07/17 04:00 110 11/07/17 04:00 98.3 113 21 148/72 (97) 100 98.3 11/07/17 03:00 94 21 131/77 (95) 100 11/07/17 02:29 102 18 30 11/07/17 02:00 99 21 145/71 (95) 100 11/07/17 01:05 96 18 30 11/07/17 01:00 103 21 141/73 (95) 100 11/07/17 00:00 30 11/07/17 00:00 Mechanical Ventilator 11/07/17 00:00 103 11/07/17 00:00 98.9 99 21 152/72 (98) 100 98.9 11/06/17 23:00 104 21 154/73 (100) 100 11/06/17 22:50 105 18 30 11/06/17 22:00 99 21 143/65 (91) 100 11/06/17 21:21 120 167/80 11/06/17 21:00 112 21 162/82 (108) 100 11/06/17 20:35 110 18 30 11/06/17 20:00 Mechanical Ventilator 11/06/17 20:00 110 11/06/17 20:00 30 11/06/17 20:00 99.0 110 20 149/77 (101) 100 99.0 11/06/17 19:45 104 23 30 11/06/17 19:00 104 21 152/81 (104) 100 11/06/17 18:00 114 25 161/78 (105) 100 11/06/17 18:00 99.8 104 22 161/78 (105) 100 99.8 11/06/17 17:00 100 14 145/92 (109) 100 11/06/17 16:54 102 22 30 11/06/17 16:00 99.1 113 24 144/75 (98) 100 99.1 11/06/17 16:00 30 11/06/17 16:00 108 11/06/17 16:00 Mechanical Ventilator 11/06/17 15:00 96 21 147/75 (99) 99 11/06/17 14:34 92 21 30 18 14:27 91 137/69 11/06/17 14:00 99 20 147/75 (99) 98 11/06/17 13:00 94 21 137/68 (91) 98 18 12:30 107 21 30 11/06/17 12:00 98 21 165/87 (113) 98 11/06/17 12:00 97 11/06/17 12:00 30 11/06/17 12:00 Mechanical Ventilator 11/06/17 11:11 98 11/06/17 11:08 97 16 30 11/06/17 11:00 96 14 155/75 (101) 98 11/06/17 10:00 99.1 88 14 162/80 (107) 98 99.1 Height (Feet): 5 Height (Inches): 2.00 Weight (Pounds): 107 Objective Gen: NAD, intubated on Vent 30% O2 HEENT: NCAT, MMM, eye open at times not tracking LUNGS: Mechanical breath sounds CARDS: RRR, S1, S2, No M/R/G, ABD: Soft, NT, ND, No R/G, + BS NEURO: Pupils constricted B/L and sluggish, Not responsive Microbiology Date/Time Source Procedure Growth Status 11/04/17 21:30 Stool Clostridium difficile Toxin Assay - Final Complete Laboratory Tests Test 11/07/17 04:15 11/07/17 08:35 White Blood Count 14.4 K/UL (4.8-10.8) H Red Blood Count 3.49 M/UL (4.20-5.40) L Hemoglobin 10.6 G/DL (12.0-16.0) L Hematocrit 31.8 % (37.0-47.0) L Mean Corpuscular Volume 91 FL (80-99) Mean Corpuscular Hemoglobin 30.4 PG (27.0-31.0) Mean Corpuscular Hemoglobin Concent 33.5 G/DL (32.0-36.0) Red Cell Distribution Width 12.6 % (11.6-14.8) Platelet Count 346 K/UL (150-450) Mean Platelet Volume 6.3 FL (6.5-10.1) L Neutrophils (%) (Auto) 70.1 % (45.0-75.0) Lymphocytes (%) (Auto) 19.4 % (20.0-45.0) L Monocytes (%) (Auto) 9.0 % (1.0-10.0) Eosinophils (%) (Auto) 0.7 % (0.0-3.0) Basophils (%) (Auto) 0.8 % (0.0-2.0) Sodium Level 143 MMOL/L (136-145) Potassium Level 3.1 MMOL/L (3.5-5.1) L Chloride Level 106 MMOL/L (98-107) Carbon Dioxide Level 28 MMOL/L (21-32) Anion Gap 9 mmol/L (5-15) Blood Urea Nitrogen 13 mg/dL (7-18) Creatinine 0.7 MG/DL (0.55-1.30) Estimat Glomerular Filtration Rate > 60 mL/min (>60) Glucose Level 109 MG/DL (74-106) H Calcium Level 8.7 MG/DL (8.5-10.1) Phosphorus Level 2.8 MG/DL (2.5-4.9) Magnesium Level 1.8 MG/DL (1.8-2.4) Total Bilirubin 0.2 MG/DL (0.2-1.0) Aspartate Amino Transf (AST/SGOT) 61 U/L (15-37) H Alanine Aminotransferase (ALT/SGPT) 76 U/L (12-78) Alkaline Phosphatase 86 U/L (46-116) Total Protein 6.7 G/DL (6.4-8.2) Albumin 2.3 G/DL (3.4-5.0) L Globulin 4.4 g/dL Albumin/Globulin Ratio 0.5 (1.0-2.7) L Arterial Blood pH 7.558 (7.350-7.450) Arterial Blood Partial Pressure CO2 28.5 mmHg (35.0-45.0) L Arterial Blood Partial Pressure O2 128.5 mmHg (75.0-100.0) H Arterial Blood HCO3 24.8 mmol/L (22.0-26.0) Arterial Blood Oxygen Saturation 98.3 % (92.0-98.0) H Arterial Blood Base Excess 2.9 Aj Test Positive Current Medications Medications (Trade) Dose Ordered Sig/Yung Route PRN Reason Start Time Stop Time Status Last Admin Dose Admin Acetaminophen (Tylenol) 650 mg Q4H PRN RECTAL Prn Headache/Temp > 101 10/30/17 16:45 11/29/17 16:44 10/31/17 21:24 Acetaminophen (Tylenol) 650 mg Q6H PRN NG Mild Pain/Temp > 100.5 11/03/17 22:00 12/03/17 21:59 11/05/17 19:09 Chlorhexidine Gluconate (Sunita-Hex 2%) 1 applic DAILY@2000 TOPIC 10/30/17 20:00 11/29/17 19:59 11/06/17 21:00 Clonidine HCl (Catapres Tab) 0.1 mg Q4H PRN ORAL for SBP >160 11/01/17 13:00 12/01/17 12:59 11/06/17 01:16 Dextrose (Dextrose 50%) 25 ml STAT PRN IV Hypoglycemia 11/03/17 18:00 12/03/17 17:59 Dextrose (Dextrose 50%) 50 ml STAT PRN IV Hypoglycemia 11/03/17 18:00 12/03/17 17:59 Diltiazem HCl (Cardizem) 60 mg EVERY 8 HOURS NG 11/05/17 22:00 12/05/17 21:59 11/07/17 06:01 Haloperidol Lactate 5 mg/ Dextrose 56 ml @ 112 mls/hr Q1H PRN IVPB Agitation 11/02/17 10:00 12/02/17 09:59 11/02/17 12:53 Heparin Sodium (Porcine) (Heparin 5000 units/ml) 5,000 units EVERY 12 HOURS SUBQ 10/30/17 09:00 11/29/17 08:59 11/07/17 08:03 Hydrocortisone (Solu-CORTEF) 50 mg DAILY IV 11/03/17 09:00 11/30/17 18:29 11/07/17 08:01 Insulin Aspart (NovoLOG) Q4HR SUBQ 11/03/17 20:00 12/03/17 19:59 11/06/17 12:40 Levetiracetam 100 ml @ 400 mls/hr Q8H IVPB 10/30/17 17:00 11/29/17 16:59 11/07/17 08:00 Levofloxacin 150 ml @ 100 mls/hr Q24H IVPB 11/04/17 14:30 11/11/17 14:29 11/06/17 14:27 Metronidazole 100 ml @ 100 mls/hr Q8H IVPB 10/30/17 11:00 11/11/17 10:59 11/07/17 03:00 Nitroglycerin (Ntg) 0.4 mg Q5M PRN SL Prn Chest Pain 10/30/17 08:00 11/29/17 07:59 Ondansetron HCl (Zofran) 4 mg Q6H PRN IVP Nausea & Vomiting 10/30/17 08:00 11/29/17 07:59 Pantoprazole (Protonix) 40 mg DAILY IVP 11/02/17 09:00 12/02/17 08:59 11/07/17 08:01 Phenytoin 100 mg/ Sodium Chloride 57 ml @ 114 mls/hr [id number] PHENYTOIN IVPB 10/30/17 16:00 11/29/17 15:59 11/07/17 08:00 Gutierrez Sifuentes MD Nov 07, 2017 09:54
--- NOTE | 2017-11-07 10:18 | Pulmonolgy Critical Care Note ---
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, 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 Discussed with: nurses, consultants, 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 - Objective Last 24 Hour Vital Signs Date Time Temp Pulse Resp B/P (MAP) Pulse Ox O2 Delivery O2 Flow Rate FiO2 11/07/17 09:00 86 12 152/75 (100) 100 11/07/17 08:00 30 11/07/17 08:00 Mechanical Ventilator 11/07/17 08:00 99.0 98 13 143/75 (97) 100 99.0 11/07/17 08:00 94 11/07/17 07:30 91 12 30 11/07/17 07:00 89 21 142/63 (89) 100 11/07/17 06:01 96 147/79 11/07/17 06:00 96 21 147/79 (101) 100 11/07/17 05:28 102 19 30 11/07/17 05:00 92 21 146/75 (98) 100 11/07/17 04:00 Mechanical Ventilator 11/07/17 04:00 110 11/07/17 04:00 98.3 113 21 148/72 (97) 100 98.3 11/07/17 03:00 94 21 131/77 (95) 100 11/07/17 02:29 102 18 30 11/07/17 02:00 99 21 145/71 (95) 100 11/07/17 01:05 96 18 30 11/07/17 01:00 103 21 141/73 (95) 100 11/07/17 00:00 30 11/07/17 00:00 Mechanical Ventilator 11/07/17 00:00 103 11/07/17 00:00 98.9 99 21 152/72 (98) 100 98.9 11/06/17 23:00 104 21 154/73 (100) 100 9/16/18 22:50 105 18 30 11/06/17 22:00 99 21 143/65 (91) 100 11/06/17 21:21 120 167/80 11/06/17 21:00 112 21 162/82 (108) 100 11/06/17 20:35 110 18 30 11/06/17 20:00 Mechanical Ventilator 11/06/17 20:00 110 11/06/17 20:00 30 11/06/17 20:00 99.0 110 20 149/77 (101) 100 99.0 11/06/17 19:45 104 23 30 11/06/17 19:00 104 21 152/81 (104) 100 11/06/17 18:00 114 25 161/78 (105) 100 11/06/17 18:00 99.8 104 22 161/78 (105) 100 99.8 11/06/17 17:00 100 14 145/92 (109) 100 11/06/17 16:54 102 22 30 11/06/17 16:00 99.1 113 24 144/75 (98) 100 99.1 11/06/17 16:00 30 11/06/17 16:00 108 11/06/17 16:00 Mechanical Ventilator 11/06/17 15:00 96 21 147/75 (99) 99 11/06/17 14:34 92 21 30 11/06/17 14:27 91 137/69 11/06/17 14:00 99 20 147/75 (99) 98 11/06/17 13:00 94 21 137/68 (91) 98 11/06/17 12:30 107 21 30 11/06/17 12:00 98 21 165/87 (113) 98 11/06/17 12:00 97 11/06/17 12:00 30 11/06/17 12:00 Mechanical Ventilator 11/06/17 11:11 98 11/06/17 11:08 97 16 30 11/06/17 11:00 96 14 155/75 (101) 98 Status: obtunded Condition: critical HEENT: atraumatic Lungs: chest wall tender Heart: HR/BP stable Abdomen: soft, non-tender, feeding tube Extremities: edema Micro: Microbiology Date/Time Source Procedure Growth Status 11/04/17 21:30 Stool Clostridium difficile Toxin Assay - Final Complete Accucheck: 95 Critical Care - Subjective ROS Limited/Unobtainable: No Condition: critical EKG Rhythm: Sinus Rhythm FI02: 30 Vent Support Breath Rate: 8 Vent Support Mode: IMV/SIMV Vent Tidal Volume: 600 Sputum Amount: Moderate PEEP: 0.0 PIP: 25 I&O: Intake and Output 11/06/17 11/07/17 19:00 07:00 Intake Total 1528 ml 927 ml Output Total 840 ml 670 ml Balance 688 ml 257 ml Free Water 60 ml 150 ml IV Total 928 ml 357 ml Tube Feeding 540 ml 360 ml Other 60 ml Output Urine Total 840 ml 670 ml # Bowel Movements 1 3 ET-Tube: 7.5 ET Position: 23 Labs: Laboratory Tests Test 11/07/17 04:15 11/07/17 08:35 White Blood Count 14.4 K/UL (4.8-10.8) H Red Blood Count 3.49 M/UL (4.20-5.40) L Hemoglobin 10.6 G/DL (12.0-16.0) L Hematocrit 31.8 % (37.0-47.0) L Mean Corpuscular Volume 91 FL (80-99) Mean Corpuscular Hemoglobin 30.4 PG (27.0-31.0) Mean Corpuscular Hemoglobin Concent 33.5 G/DL (32.0-36.0) Red Cell Distribution Width 12.6 % (11.6-14.8) Platelet Count 346 K/UL (150-450) Mean Platelet Volume 6.3 FL (6.5-10.1) L Neutrophils (%) (Auto) 70.1 % (45.0-75.0) Lymphocytes (%) (Auto) 19.4 % (20.0-45.0) L Monocytes (%) (Auto) 9.0 % (1.0-10.0) Eosinophils (%) (Auto) 0.7 % (0.0-3.0) Basophils (%) (Auto) 0.8 % (0.0-2.0) Sodium Level 143 MMOL/L (136-145) Potassium Level 3.1 MMOL/L (3.5-5.1) L Chloride Level 106 MMOL/L (98-107) Carbon Dioxide Level 28 MMOL/L (21-32) Anion Gap 9 mmol/L (5-15) Blood Urea Nitrogen 13 mg/dL (7-18) Creatinine 0.7 MG/DL (0.55-1.30) Estimat Glomerular Filtration Rate > 60 mL/min (>60) Glucose Level 109 MG/DL (74-106) H Calcium Level 8.7 MG/DL (8.5-10.1) Phosphorus Level 2.8 MG/DL (2.5-4.9) Magnesium Level 1.8 MG/DL (1.8-2.4) Total Bilirubin 0.2 MG/DL (0.2-1.0) Aspartate Amino Transf (AST/SGOT) 61 U/L (15-37) H Alanine Aminotransferase (ALT/SGPT) 76 U/L (12-78) Alkaline Phosphatase 86 U/L (46-116) Total Protein 6.7 G/DL (6.4-8.2) Albumin 2.3 G/DL (3.4-5.0) L Globulin 4.4 g/dL Albumin/Globulin Ratio 0.5 (1.0-2.7) L Arterial Blood pH 7.558 (7.350-7.450) Arterial Blood Partial Pressure CO2 28.5 mmHg (35.0-45.0) L Arterial Blood Partial Pressure O2 128.5 mmHg (75.0-100.0) H Arterial Blood HCO3 24.8 mmol/L (22.0-26.0) Arterial Blood Oxygen Saturation 98.3 % (92.0-98.0) H Arterial Blood Base Excess 2.9 Aj Test Positive Evan Purcell MD Nov 07, 2017 10:18
--- NOTE | 2017-11-07 11:17 | GI Progress Note ---
Assessment/Plan Problems: (1) Diabetes ICD Codes: E11.9 - Type 2 diabetes mellitus without complications SNOMED: 49739079 (2) Cocaine abuse ICD Codes: F14.10 - Cocaine abuse, uncomplicated SNOMED: 74399774 (3) Transaminitis ICD Codes: R74.0 - Nonspecific elevation of levels of transaminase and lactic acid dehydrogenase [LDH] SNOMED: 220129166, 429654160 (4) Anemia ICD Codes: D64.9 - Anemia, unspecified SNOMED: 699747267 Status: stable Status Narrative Discussed with Dr. Sauceda. Assessment/Plan resolving LFTS elevation NGTF fu labs supportive care peg if needed The patient was seen and examined at bedside and all new and available data was reviewed in the patients chart. I agree with the above findings, impression and plan. (Patient seen earlier today. Signature stamp does not reflect patient encounter time.). - Renaldo Saucead MD Subjective Subjective limited Objective Last 24 Hour Vital Signs Date Time Temp Pulse Resp B/P (MAP) Pulse Ox O2 Delivery O2 Flow Rate FiO2 11/07/17 10:00 86 12 132/73 (92) 100 11/07/17 09:20 99 11/07/17 09:20 85 16 30 11/07/17 09:00 86 12 152/75 (100) 100 11/07/17 08:00 30 11/07/17 08:00 Mechanical Ventilator 11/07/17 08:00 99.0 98 13 143/75 (97) 100 99.0 11/07/17 08:00 94 11/07/17 07:30 91 12 30 11/07/17 07:00 89 21 142/63 (89) 100 11/07/17 06:01 96 147/79 11/07/17 06:00 96 21 147/79 (101) 100 11/07/17 05:28 102 19 30 11/07/17 05:00 92 21 146/75 (98) 100 11/07/17 04:00 Mechanical Ventilator 11/07/17 04:00 110 11/07/17 04:00 98.3 113 21 148/72 (97) 100 98.3 11/07/17 03:00 94 21 131/77 (95) 100 11/07/17 02:29 102 18 30 11/07/17 02:00 99 21 145/71 (95) 100 11/07/17 01:05 96 18 30 11/07/17 01:00 103 21 141/73 (95) 100 11/07/17 00:00 30 11/07/17 00:00 Mechanical Ventilator 11/07/17 00:00 103 11/07/17 00:00 98.9 99 21 152/72 (98) 100 98.9 11/06/17 23:00 104 21 154/73 (100) 100 11/06/17 22:50 105 18 30 11/06/17 22:00 99 21 143/65 (91) 100 11/06/17 21:21 120 167/80 11/06/17 21:00 112 21 162/82 (108) 100 11/06/17 20:35 110 18 30 11/06/17 20:00 Mechanical Ventilator 11/06/17 20:00 110 11/06/17 20:00 30 11/06/17 20:00 99.0 110 20 149/77 (101) 100 99.0 11/06/17 19:45 104 23 30 11/06/17 19:00 104 21 152/81 (104) 100 11/06/17 18:00 114 25 161/78 (105) 100 11/06/17 18:00 99.8 104 22 161/78 (105) 100 99.8 11/06/17 17:00 100 14 145/92 (109) 100 11/06/17 16:54 102 22 30 11/06/17 16:00 99.1 113 24 144/75 (98) 100 99.1 11/06/17 16:00 30 11/06/17 16:00 108 11/06/17 16:00 Mechanical Ventilator 11/06/17 15:00 96 21 147/75 (99) 99 11/06/17 14:34 92 21 30 11/06/17 14:27 91 137/69 11/06/17 14:00 99 20 147/75 (99) 98 11/06/17 13:00 94 21 137/68 (91) 98 11/06/17 12:30 107 21 30 11/06/17 12:00 98 21 165/87 (113) 98 11/06/17 12:00 97 11/06/17 12:00 30 11/06/17 12:00 Mechanical Ventilator Intake and Output 11/06/17 11/07/17 19:00 07:00 Intake Total 1528 ml 927 ml Output Total 840 ml 670 ml Balance 688 ml 257 ml Free Water 60 ml 150 ml IV Total 928 ml 357 ml Tube Feeding 540 ml 360 ml Other 60 ml Output Urine Total 840 ml 670 ml # Bowel Movements 1 3 Laboratory Tests Test 11/07/17 04:15 11/07/17 08:35 White Blood Count 14.4 K/UL (4.8-10.8) H Red Blood Count 3.49 M/UL (4.20-5.40) L Hemoglobin 10.6 G/DL (12.0-16.0) L Hematocrit 31.8 % (37.0-47.0) L Mean Corpuscular Volume 91 FL (80-99) Mean Corpuscular Hemoglobin 30.4 PG (27.0-31.0) Mean Corpuscular Hemoglobin Concent 33.5 G/DL (32.0-36.0) Red Cell Distribution Width 12.6 % (11.6-14.8) Platelet Count 346 K/UL (150-450) Mean Platelet Volume 6.3 FL (6.5-10.1) L Neutrophils (%) (Auto) 70.1 % (45.0-75.0) Lymphocytes (%) (Auto) 19.4 % (20.0-45.0) L Monocytes (%) (Auto) 9.0 % (1.0-10.0) Eosinophils (%) (Auto) 0.7 % (0.0-3.0) Basophils (%) (Auto) 0.8 % (0.0-2.0) Sodium Level 143 MMOL/L (136-145) Potassium Level 3.1 MMOL/L (3.5-5.1) L Chloride Level 106 MMOL/L (98-107) Carbon Dioxide Level 28 MMOL/L (21-32) Anion Gap 9 mmol/L (5-15) Blood Urea Nitrogen 13 mg/dL (7-18) Creatinine 0.7 MG/DL (0.55-1.30) Estimat Glomerular Filtration Rate > 60 mL/min (>60) Glucose Level 109 MG/DL (74-106) H Calcium Level 8.7 MG/DL (8.5-10.1) Phosphorus Level 2.8 MG/DL (2.5-4.9) Magnesium Level 1.8 MG/DL (1.8-2.4) Total Bilirubin 0.2 MG/DL (0.2-1.0) Aspartate Amino Transf (AST/SGOT) 61 U/L (15-37) H Alanine Aminotransferase (ALT/SGPT) 76 U/L (12-78) Alkaline Phosphatase 86 U/L (46-116) Total Protein 6.7 G/DL (6.4-8.2) Albumin 2.3 G/DL (3.4-5.0) L Globulin 4.4 g/dL Albumin/Globulin Ratio 0.5 (1.0-2.7) L Arterial Blood pH 7.558 (7.350-7.450) Arterial Blood Partial Pressure CO2 28.5 mmHg (35.0-45.0) L Arterial Blood Partial Pressure O2 128.5 mmHg (75.0-100.0) H Arterial Blood HCO3 24.8 mmol/L (22.0-26.0) Arterial Blood Oxygen Saturation 98.3 % (92.0-98.0) H Arterial Blood Base Excess 2.9 Aj Test Positive Height (Feet): 5 Height (Inches): 2.00 Weight (Pounds): 107 General Appearance: no apparent distress Cardiovascular: normal rate Respiratory/Chest: no respiratory distress, other - intubated Abdominal Exam: normal bowel sounds, non tender, soft, other - OGT Extremities: non-tender Risa Davenport WANT AD SUPERVISOR Nov 07, 2017 11:17
--- NOTE | 2017-11-07 12:57 | Diagnostic Imaging Report ---
Indication: Dyspnea Technique: XRAY Chest 1v Comparison: 11/06/2017 Findings: Endotracheal tube, enteric tube and central venous catheter unchanged in position. Heart size and mediastinal contours are stable. There is mild pulmonary vascular congestion with subtle increased interstitial markings. This is unchanged. There is development of acute airspace opacities at the right base. A trace right pleural effusion is not excluded. Left costophrenic sulcus is sharp. No pneumothorax. Osseous structures are stable, including left shoulder hardware. Impression: Development of streaky opacities at the right base, possibly subsegmental atelectasis however developing infiltrate not excludable. Clinical correlation/follow-up recommended. Support lines/tubes stable in position.
--- NOTE | 2017-11-07 14:37 | General Progress Note ---
Assessment/Plan Problem List: (1) Renal insufficiency ICD Codes: N28.9 - Disorder of kidney and ureter, unspecified SNOMED: 648408851, 983725621 (2) UTI (urinary tract infection) ICD Codes: N39.0 - Urinary tract infection, site not specified SNOMED: 54456468 (3) Seizure ICD Codes: R56.9 - Unspecified convulsions SNOMED: 87245734 (4) HTN (hypertension) ICD Codes: I10 - Essential (primary) hypertension SNOMED: 25635182 (5) Diabetes ICD Codes: E11.9 - Type 2 diabetes mellitus without complications SNOMED: 23306145 Status: unchanged Assessment/Plan vent abx detox neph f/u cbc bmp am Subjective Constitutional: Reports: weakness Allergies: Coded Allergies: ASPIRIN (Verified Allergy, Unknown, 10/30/17) PENICILLINS (Verified Allergy, Unknown, 10/30/17) UNABLE TO ASSESS (Unverified , 10/29/17) All Systems: reviewed and negative except above Subjective intubated sedated in icu ng Objective Last 24 Hour Vital Signs Date Time Temp Pulse Resp B/P (MAP) Pulse Ox O2 Delivery O2 Flow Rate FiO2 11/07/17 13:57 94 147/84 11/07/17 13:00 98 12 138/84 (102) 100 11/07/17 12:00 30 11/07/17 12:00 93 11/07/17 12:00 Mechanical Ventilator 11/07/17 12:00 98.1 98 13 143/75 (97) 100 98.1 11/07/17 11:00 115 12 145/79 (101) 100 11/07/17 10:30 80 12 30 11/07/17 10:00 86 12 132/73 (92) 100 11/07/17 09:20 99 11/07/17 09:20 85 16 30 11/07/17 09:00 86 12 152/75 (100) 100 11/07/17 08:00 30 11/07/17 08:00 Mechanical Ventilator 11/07/17 08:00 99.0 98 13 143/75 (97) 100 99.0 11/07/17 08:00 94 11/07/17 07:30 91 12 30 11/07/17 07:00 89 21 142/63 (89) 100 11/07/17 06:01 96 147/79 11/07/17 06:00 96 21 147/79 (101) 100 11/07/17 05:28 102 19 30 11/07/17 05:00 92 21 146/75 (98) 100 11/07/17 04:00 Mechanical Ventilator 11/07/17 04:00 110 11/07/17 04:00 98.3 113 21 148/72 (97) 100 98.3 11/07/17 03:00 94 21 131/77 (95) 100 11/07/17 02:29 102 18 30 11/07/17 02:00 99 21 145/71 (95) 100 11/07/17 01:05 96 18 30 11/07/17 01:00 103 21 141/73 (95) 100 11/07/17 00:00 30 11/07/17 00:00 Mechanical Ventilator 11/07/17 00:00 103 11/07/17 00:00 98.9 99 21 152/72 (98) 100 98.9 11/06/17 23:00 104 21 154/73 (100) 100 11/06/17 22:50 105 18 30 11/06/17 22:00 99 21 143/65 (91) 100 11/06/17 21:21 120 167/80 11/06/17 21:00 112 21 162/82 (108) 100 11/06/17 20:35 110 18 30 11/06/17 20:00 Mechanical Ventilator 11/06/17 20:00 110 11/06/17 20:00 30 11/06/17 20:00 99.0 110 20 149/77 (101) 100 99.0 11/06/17 19:45 104 23 30 11/06/17 19:00 104 21 152/81 (104) 100 11/06/17 18:00 114 25 161/78 (105) 100 18 18:00 99.8 104 22 161/78 (105) 100 99.8 11/06/17 17:00 100 14 145/92 (109) 100 18 16:54 102 22 30 11/06/17 16:00 99.1 113 24 144/75 (98) 100 99.1 11/06/17 16:00 30 18 16:00 108 11/06/17 16:00 Mechanical Ventilator 11/06/17 15:00 96 21 147/75 (99) 99 Intake and Output 11/06/17 11/07/17 19:00 07:00 Intake Total 1528 ml 927 ml Output Total 840 ml 670 ml Balance 688 ml 257 ml Free Water 60 ml 150 ml IV Total 928 ml 357 ml Tube Feeding 540 ml 360 ml Other 60 ml Output Urine Total 840 ml 670 ml # Bowel Movements 1 3 Laboratory Tests 11/07/17 04:15: White Blood Count 14.4H, Red Blood Count 3.49L, Hemoglobin 10.6L, Hematocrit 31.8L, Mean Corpuscular Volume 91, Mean Corpuscular Hemoglobin 30.4, Mean Corpuscular Hemoglobin Concent 33.5, Red Cell Distribution Width 12.6, Platelet Count 346, Mean Platelet Volume 6.3L, Neutrophils (%) (Auto) 70.1, Lymphocytes ( %) (Auto) 19.4L, Monocytes (%) (Auto) 9.0, Eosinophils (%) (Auto) 0.7, Basophils (%) (Auto) 0.8, Sodium Level 143, Potassium Level 3.1L, Chloride Level 106, Carbon Dioxide Level 28, Anion Gap 9, Blood Urea Nitrogen 13, Creatinine 0.7, Estimat Glomerular Filtration Rate > 60, Glucose Level 109H, Calcium Level 8.7, Phosphorus Level 2.8, Magnesium Level 1.8, Total Bilirubin 0.2, Aspartate Amino Transf (AST/SGOT) 61H, Alanine Aminotransferase (ALT/SGPT) 76, Alkaline Phosphatase 86, Total Protein 6.7, Albumin 2.3L, Globulin 4.4, Albumin/Globulin Ratio 0.5L 11/07/17 08:35: Arterial Blood pH 7.558*H, Arterial Blood Partial Pressure CO2 28.5L, Arterial Blood Partial Pressure O2 128.5H, Arterial Blood HCO3 24.8, Arterial Blood Oxygen Saturation 98.3H, Arterial Blood Base Excess 2.9, Aj Test Positive Height (Feet): 5 Height (Inches): 2.00 Weight (Pounds): 107 General Appearance: lethargic EENT: normal ENT inspection Neck: normal alignment Cardiovascular: normal peripheral pulses, normal rate, regular rhythm Respiratory/Chest: chest wall non-tender, decreased breath sounds Abdomen: normal bowel sounds, non tender, soft Extremities: normal inspection Edema: no edema noted Arm (L), no edema noted Arm (R), no edema noted Leg (L), no edema noted Leg (R), no edema noted Pedal (L), no edema noted Pedal (R), no edema noted Generalized Neurologic: motor weakness Skin: normal pigmentation, warm/dry Josias Skinner DO Nov 07, 2017 14:37
--- NOTE | 2017-11-07 19:17 | Neurology Progress Note ---
Interim History Interim History Interim History Ms. Robertson continues to be in a comatose state. She does however exhibit spontaneous eye opening and closing. She is still exhibiting decerebrate posturing. She has had no seizures or seizure like phenomena. She continues to be artificially ventilated. There has been no improvement in her neurologic state. Review of Systems Neuro Review of Systems Unable to obtain. Objective Physical Exam Last Vital Signs Date Time Temp Pulse Resp B/P (MAP) Pulse Ox O2 Delivery O2 Flow Rate FiO2 11/07/17 18:56 101 15 30 11/07/17 18:00 141/68 (92) 100 11/07/17 16:00 98.1 98.1 11/07/17 16:00 Mechanical Ventilator Laboratory Tests Test 11/07/17 04:15 11/07/17 08:35 White Blood Count 14.4 K/UL (4.8-10.8) H Red Blood Count 3.49 M/UL (4.20-5.40) L Hemoglobin 10.6 G/DL (12.0-16.0) L Hematocrit 31.8 % (37.0-47.0) L Mean Corpuscular Volume 91 FL (80-99) Mean Corpuscular Hemoglobin 30.4 PG (27.0-31.0) Mean Corpuscular Hemoglobin Concent 33.5 G/DL (32.0-36.0) Red Cell Distribution Width 12.6 % (11.6-14.8) Platelet Count 346 K/UL (150-450) Mean Platelet Volume 6.3 FL (6.5-10.1) L Neutrophils (%) (Auto) 70.1 % (45.0-75.0) Lymphocytes (%) (Auto) 19.4 % (20.0-45.0) L Monocytes (%) (Auto) 9.0 % (1.0-10.0) Eosinophils (%) (Auto) 0.7 % (0.0-3.0) Basophils (%) (Auto) 0.8 % (0.0-2.0) Sodium Level 143 MMOL/L (136-145) Potassium Level 3.1 MMOL/L (3.5-5.1) L Chloride Level 106 MMOL/L (98-107) Carbon Dioxide Level 28 MMOL/L (21-32) Anion Gap 9 mmol/L (5-15) Blood Urea Nitrogen 13 mg/dL (7-18) Creatinine 0.7 MG/DL (0.55-1.30) Estimat Glomerular Filtration Rate > 60 mL/min (>60) Glucose Level 109 MG/DL (74-106) H Calcium Level 8.7 MG/DL (8.5-10.1) Phosphorus Level 2.8 MG/DL (2.5-4.9) Magnesium Level 1.8 MG/DL (1.8-2.4) Total Bilirubin 0.2 MG/DL (0.2-1.0) Aspartate Amino Transf (AST/SGOT) 61 U/L (15-37) H Alanine Aminotransferase (ALT/SGPT) 76 U/L (12-78) Alkaline Phosphatase 86 U/L (46-116) Total Protein 6.7 G/DL (6.4-8.2) Albumin 2.3 G/DL (3.4-5.0) L Globulin 4.4 g/dL Albumin/Globulin Ratio 0.5 (1.0-2.7) L Arterial Blood pH 7.558 (7.350-7.450) Arterial Blood Partial Pressure CO2 28.5 mmHg (35.0-45.0) L Arterial Blood Partial Pressure O2 128.5 mmHg (75.0-100.0) H Arterial Blood HCO3 24.8 mmol/L (22.0-26.0) Arterial Blood Oxygen Saturation 98.3 % (92.0-98.0) H Arterial Blood Base Excess 2.9 Aj Test Positive Neurologic Exam Objective PHYSICAL EXAMINATION: GENERAL: She is a well-developed, cachectic, lean, black lady, lying in an ICU bed, in no acute distress, connected to a ventilator via an orotracheal tube. HEAD: Normocephalic and atraumatic. EENT: Examination benign. NECK: No neck rigidity was observed. NEUROLOGIC EXAMINATION: MENTAL STATUS EXAMINATION: She was comatose and did not respond even to deep painful stimuli. She was decerebrating spontaneously. Further mental status testing was impossible. SPEECH: Could not be tested. LANGUAGE: Could not be tested. CRANIAL NERVE EXAMINATION: II: She did not blink to threat. III, IV & : The external ocular movements were present on oculocephalic maneuvers. The pupils were 3 mm in diameter and reactive sluggishly to light. V & VII: The corneal reflexes were present, but significantly diminished. VIII: She did not respond to sounds and had no nystagmus. IX & X: The gag reflex was present but delayed on manipulating the endotracheal tube. XI: The sternocleidomastoids and trapezii could not be tested. XII: Could not be tested. MOTOR SYSTEM: The tone was increased in all four extremities with severe spasticity. Examination of muscle mass revealed generalized muscle wasting. Examination of power was impossible to perform because even on applying deep painful stimuli, no movements were seen. SENSORY EXAMINATION: She did not respond even to deep pain. REFLEXES: 1+ and bilaterally symmetrical at the biceps, triceps, brachioradialis , and knees. 0 at both ankles. The plantar responses were extensor bilaterally. COORDINATION, STANCE & GAIT: Could not be tested. Impression/Recommendations Diagnostic Impression 1. Ms. Polly Robertson is a 57-year-old, right-handed, black lady, who does have a past history of polysubstance abuse with her recent drug of choice being cocaine, a seizure disorder, and chronic pain, who was found down in her bathroom at home with vomitus in her mouth. She then was noted to stop breathing and this progressed to cardiac failure. The paramedics were called in and she had to have advanced cardiac life support before she could be resuscitated. She was then transported to the [facility] emergency room and on the way here she was noted to have a generalized seizure. Since then, she has had multiple seizures, however, at this point in time, they are well controlled on the present regimen. 2. She continues to be in a comatose state. She does however exhibit spontaneous eye opening and closing. She is still exhibiting decerebrate posturing. She has had no seizures or seizure like phenomena. She continues to be artificially ventilated. There has been no improvement in her neurologic state. 3. On neurological examination, at this time, she is comatose and does not respond even to deep pain. She exhibits spontaneous decerebration. She does not demonstrate any focal or lateralizing findings. 4. The CT scan of the brain without contrast is benign for acute pathology. 5. Her latest laboratory data on my initial evaluation revealed that her WBC count was elevated to 17,600 with predominantly 79% being neutrophils and 15% being lymphocytes and monocytes. Her arterial blood gas revealed pCO2 low at 21.2, pO2 at 154, and pH of 7.49. Her chemistry panel revealed a creatinine elevated to 1.7. Her AST was elevated at 255, ALT elevated at 251, and alkaline phosphatase elevated at 142. Her albumin was low at 2.9. Her Urinalysis revealed 1+ leukocyte esterase, 20- 30 red blood cells, and 5-10 white blood cells per high-power field. The urine toxicology screen was positive for cocaine. 6. Her EEG done on 10/31/17 revealed a severe encephalopathy and bilateral frontal epileptogenic foci with inter-ictal discharges at time with a large field. 7. The patient's history, neurological examination, laboratory data and imaging studies are most compatible with seizures due to a hypoxic/ischemic cerebral insult and/or cocaine intoxication. 8. The prognosis for recovery of cerebral function is dismal. Recommendations 1. Continue present management. 2. Continue to treat the patient's infectious process vigorously. 3. Continue Dilantin 100 mg intravenously q.8 h. 4. Continue Keppra 1 G intravenously every 8 hours. 5. In light of her poor prognosis make decision regarding intensity of care. Denisse Lester M.D., M.S.P.DENISSE ERAZO Nov 07, 2017 19:17
[2017-11-07] MEDS: Dyna-Hex 2% Top Sol 2oz TOPIC SCH (20:30)
--- NOTE | 2017-11-07 23:31 | Cardiology Progress Note ---
Assessment/Plan Assessment/Plan 1. Sinus tachycardia, ? due to cocaine intoxication or small pneumothorax. Echo reveals normal left ventricular systolic function with LVEF of approximately 55% . Increase diltiazem dosage. 2. Acute hypoxemia respiratory failure with emergence of small right pneumothorax. 3. Mild pulmonary hypertension with right ventricular systolic pressure measured at 42 mmHg. 4. Seizure disorder. 5. Polysubstance abuse. Subjective Subjective Sinus rhythm at 97. Intubated. Objective Last 24 Hour Vital Signs Date Time Temp Pulse Resp B/P (MAP) Pulse Ox O2 Delivery O2 Flow Rate FiO2 11/07/17 23:13 100 13 30 11/07/17 23:00 97 15 134/59 (84) 99 11/07/17 22:20 97 134/56 11/07/17 22:00 97 15 134/56 (82) 100 11/07/17 21:12 107 16 30 11/07/17 21:00 99 15 144/64 (90) 100 11/07/17 20:00 103 11/07/17 20:00 Mechanical Ventilator 11/07/17 20:00 98.0 102 16 131/58 (82) 100 98.0 11/07/17 20:00 30 11/07/17 19:00 104 17 135/60 (85) 100 11/07/17 18:56 101 15 30 11/07/17 18:00 108 17 141/68 (92) 100 11/07/17 17:00 98 17 141/63 (89) 100 11/07/17 17:00 101 13 30 11/07/17 16:00 98.1 99 16 132/83 (99) 100 98.1 11/07/17 16:00 30 11/07/17 16:00 Mechanical Ventilator 11/07/17 16:00 100 11/07/17 15:10 99 17 30 11/07/17 15:00 91 12 128/63 (84) 100 11/07/17 14:00 96 12 130/64 (86) 100 11/07/17 13:57 94 147/84 11/07/17 13:00 98 12 138/84 (102) 100 11/07/17 12:42 92 12 30 11/07/17 12:00 30 11/07/17 12:00 93 11/07/17 12:00 Mechanical Ventilator 11/07/17 12:00 98.1 98 13 143/75 (97) 100 98.1 11/07/17 11:00 115 12 145/79 (101) 100 11/07/17 10:30 80 12 30 11/07/17 10:00 86 12 132/73 (92) 100 11/07/17 09:20 99 11/07/17 09:20 85 16 30 11/07/17 09:00 86 12 152/75 (100) 100 11/07/17 08:00 30 11/07/17 08:00 Mechanical Ventilator 11/07/17 08:00 99.0 98 13 143/75 (97) 100 99.0 11/07/17 08:00 94 11/07/17 07:30 91 12 30 11/07/17 07:00 89 21 142/63 (89) 100 11/07/17 06:01 96 147/79 11/07/17 06:00 96 21 147/79 (101) 100 11/07/17 05:28 102 19 30 11/07/17 05:00 92 21 146/75 (98) 100 11/07/17 04:00 Mechanical Ventilator 11/07/17 04:00 110 11/07/17 04:00 98.3 113 21 148/72 (97) 100 98.3 11/07/17 03:00 94 21 131/77 (95) 100 11/07/17 02:29 102 18 30 11/07/17 02:00 99 21 145/71 (95) 100 11/07/17 01:05 96 18 30 11/07/17 01:00 103 21 141/73 (95) 100 11/07/17 00:00 30 11/07/17 00:00 Mechanical Ventilator 11/07/17 00:00 103 11/07/17 00:00 98.9 99 21 152/72 (98) 100 98.9 Intake and Output 11/06/17 11/07/17 19:00 07:00 Intake Total 1528 ml 927 ml Output Total 840 ml 670 ml Balance 688 ml 257 ml Free Water 60 ml 150 ml IV Total 928 ml 357 ml Tube Feeding 540 ml 360 ml Other 60 ml Output Urine Total 840 ml 670 ml # Bowel Movements 1 3 2D Echo: EF 60-65%, mild LVH, Mild AR, normal LVDD, RVSP 42 mmHg Laboratory Tests Test 11/07/17 04:15 11/07/17 08:35 White Blood Count 14.4 K/UL (4.8-10.8) H Red Blood Count 3.49 M/UL (4.20-5.40) L Hemoglobin 10.6 G/DL (12.0-16.0) L Hematocrit 31.8 % (37.0-47.0) L Mean Corpuscular Volume 91 FL (80-99) Mean Corpuscular Hemoglobin 30.4 PG (27.0-31.0) Mean Corpuscular Hemoglobin Concent 33.5 G/DL (32.0-36.0) Red Cell Distribution Width 12.6 % (11.6-14.8) Platelet Count 346 K/UL (150-450) Mean Platelet Volume 6.3 FL (6.5-10.1) L Neutrophils (%) (Auto) 70.1 % (45.0-75.0) Lymphocytes (%) (Auto) 19.4 % (20.0-45.0) L Monocytes (%) (Auto) 9.0 % (1.0-10.0) Eosinophils (%) (Auto) 0.7 % (0.0-3.0) Basophils (%) (Auto) 0.8 % (0.0-2.0) Sodium Level 143 MMOL/L (136-145) Potassium Level 3.1 MMOL/L (3.5-5.1) L Chloride Level 106 MMOL/L (98-107) Carbon Dioxide Level 28 MMOL/L (21-32) Anion Gap 9 mmol/L (5-15) Blood Urea Nitrogen 13 mg/dL (7-18) Creatinine 0.7 MG/DL (0.55-1.30) Estimat Glomerular Filtration Rate > 60 mL/min (>60) Glucose Level 109 MG/DL (74-106) H Calcium Level 8.7 MG/DL (8.5-10.1) Phosphorus Level 2.8 MG/DL (2.5-4.9) Magnesium Level 1.8 MG/DL (1.8-2.4) Total Bilirubin 0.2 MG/DL (0.2-1.0) Aspartate Amino Transf (AST/SGOT) 61 U/L (15-37) H Alanine Aminotransferase (ALT/SGPT) 76 U/L (12-78) Alkaline Phosphatase 86 U/L (46-116) Total Protein 6.7 G/DL (6.4-8.2) Albumin 2.3 G/DL (3.4-5.0) L Globulin 4.4 g/dL Albumin/Globulin Ratio 0.5 (1.0-2.7) L Arterial Blood pH 7.558 (7.350-7.450) Arterial Blood Partial Pressure CO2 28.5 mmHg (35.0-45.0) L Arterial Blood Partial Pressure O2 128.5 mmHg (75.0-100.0) H Arterial Blood HCO3 24.8 mmol/L (22.0-26.0) Arterial Blood Oxygen Saturation 98.3 % (92.0-98.0) H Arterial Blood Base Excess 2.9 Aj Test Positive Objective HEENT: Atraumatic and normocephalic. Anicteric. Pupils are equal, round, and reactive to light and accommodation. NECK: JVP cannot be assessed due to intubation. CARDIOVASCULAR: Normal S1, S2. Tachycardic. No murmurs, gallops, or rubs. LUNGS: Diminished breath sounds in both bases. ABDOMEN: Soft, nontender, and nondistended. Positive bowel sounds. EXTREMITIES: No evidence of edema, clubbing, or cyanosis. Geovany Brown MD Nov 07, 2017 23:31
[2017-11-08] VITALS (24 sets, daily range): BP systolic 108–173; BP diastolic 60–104
[2017-11-08] MEDS: Phenytoin 100 MG in NS 55 ML IVPB SCH ×3 (00:09→16:17)
[2017-11-08] MEDS: levETIRAcetam 1,000mg/NS100ml 100 ML IVPB SCH ×3 (00:10→16:46)
[2017-11-08] MEDS: NovoLOG Insulin Flexpen SUBQ SCH ×4 (00:13→18:17)
[2017-11-08] MEDS: dilTIAZem HCl 60mg tab NG SCH ×3 (05:49→22:02)
[2017-11-08 06:03] LABS: BASOPHILS % (AUTO) 1.1 % (0.0-2.0); EOSINOPHILS % (AUTO) 0.9 % (0.0-3.0); HEMATOCRIT 31.2 % (37.0-47.0); HEMOGLOBIN 10.2 G/DL (12.0-16.0); LYMPHOCYTES % (AUTO) 20.8 % (20.0-45.0); MEAN CORPUSCULAR VOLUME 92 FL (80-99); MONOCYTES % (AUTO) 8.4 % (1.0-10.0); NEUTROPHILS % (AUTO) 68.8 % (45.0-75.0); PLATELET COUNT 370 K/UL (150-450); RED CELL DISTRIBUTION WIDTH 12.8 % (11.6-14.8); WHITE BLOOD COUNT 12.9 K/UL (4.8-10.8)
--- NOTE | 2017-11-08 06:40 | General Progress Note ---
Assessment/Plan Problem List: (1) Hypoglycemia ICD Codes: E16.2 - Hypoglycemia, unspecified SNOMED: 658327392 (2) SLE (systemic lupus erythematosus) ICD Codes: M32.9 - Systemic lupus erythematosus, unspecified SNOMED: 97599606 (3) Cocaine abuse ICD Codes: F14.10 - Cocaine abuse, uncomplicated SNOMED: 91346475 (4) Elevated transaminase measurement ICD Codes: R74.0 - Nonspecific elevation of levels of transaminase and lactic acid dehydrogenase [LDH] SNOMED: 915430903, 790740268 (5) Diabetes ICD Codes: E11.9 - Type 2 diabetes mellitus without complications SNOMED: 30040351 (6) Pneumothorax on right ICD Codes: J93.9 - Pneumothorax, unspecified SNOMED: 661681277 (7) Seizure ICD Codes: R56.9 - Unspecified convulsions SNOMED: 87572280 Assessment/Plan - change SoluCortef 50 mg daily to 25 mg bid - change BG monitoring every 4 to every 6 hours - hypoglycemia protocol - NISS low dose Subjective ROS Limited/Unobtainable: Yes Allergies: Coded Allergies: ASPIRIN (Verified Allergy, Unknown, 10/30/17) PENICILLINS (Verified Allergy, Unknown, 10/30/17) UNABLE TO ASSESS (Unverified , 10/29/17) Subjective in ICU on vent neurological status unchanged Objective Last 24 Hour Vital Signs Date Time Temp Pulse Resp B/P (MAP) Pulse Ox O2 Delivery O2 Flow Rate FiO2 11/08/17 06:00 88 15 137/68 (91) 99 11/08/17 05:49 90 128/72 11/08/17 05:00 88 15 150/71 (97) 99 11/08/17 04:51 90 12 30 11/08/17 04:00 104 11/08/17 04:00 98.2 98 15 131/74 (93) 99 98.2 11/08/17 04:00 98 11/08/17 04:00 Mechanical Ventilator 11/08/17 04:00 30 11/08/17 03:00 98.6 98 15 150/80 (103) 99 98.6 11/08/17 02:58 99 15 30 11/08/17 02:00 98 15 147/65 (92) 99 11/08/17 01:40 98 15 30 11/08/17 01:00 99 15 138/61 (86) 99 1818 00:00 30 18/18 00:00 99 1818 00:00 98.2 99 16 158/61 (93) 100 98.2 1818 00:00 Mechanical Ventilator 18 23:13 100 13 30 17/18 23:00 97 15 134/59 (84) 99 1718 22:20 97 134/56 18 22:00 97 15 134/56 (82) 100 18 21:12 107 16 30 1718 21:00 99 15 144/64 (90) 100 18 20:00 103 18 20:00 Mechanical Ventilator 11/07/17 20:00 98.0 102 16 131/58 (82) 100 98.0 18 20:00 30 18 19:00 104 17 135/60 (85) 100 18 18:56 101 15 30 18 18:00 108 17 141/68 (92) 100 18 17:00 98 17 141/63 (89) 100 18 17:00 101 13 30 18 16:00 98.1 99 16 132/83 (99) 100 98.1 18 16:00 30 18 16:00 Mechanical Ventilator 11/07/17 16:00 100 18 15:10 99 17 30 18 15:00 91 12 128/63 (84) 100 18 14:00 96 12 130/64 (86) 100 18 13:57 94 147/84 18 13:00 98 12 138/84 (102) 100 18 12:42 92 12 30 18 12:00 30 18 12:00 93 18 12:00 Mechanical Ventilator 11/07/17 12:00 98.1 98 13 143/75 (97) 100 98.1 11/07/17 11:00 115 12 145/79 (101) 100 18 10:30 80 12 30 18 10:00 86 12 132/73 (92) 100 9/17/18 09:20 99 11/07/17 09:20 85 16 30 11/07/17 09:00 86 12 152/75 (100) 100 11/07/17 08:00 30 11/07/17 08:00 Mechanical Ventilator 11/07/17 08:00 99.0 98 13 143/75 (97) 100 99.0 11/07/17 08:00 94 11/07/17 07:30 91 12 30 11/07/17 07:00 89 21 142/63 (89) 100 Intake and Output 11/07/17 11/08/17 19:00 07:00 Intake Total 1069 ml 962 ml Output Total 720 ml 615 ml Balance 349 ml 347 ml Free Water 150 ml IV Total 664 ml 257 ml Tube Feeding 405 ml 495 ml Other 60 ml Output Urine Total 720 ml 615 ml # Bowel Movements 3 4 Laboratory Tests 11/07/17 08:35: Arterial Blood pH 7.558*H, Arterial Blood Partial Pressure CO2 28.5L, Arterial Blood Partial Pressure O2 128.5H, Arterial Blood HCO3 24.8, Arterial Blood Oxygen Saturation 98.3H, Arterial Blood Base Excess 2.9, Aj Test Positive 11/08/17 04:59: White Blood Count 12.9H, Red Blood Count 3.40L, Hemoglobin 10.2L, Hematocrit 31.2L, Mean Corpuscular Volume 92, Mean Corpuscular Hemoglobin 29.9, Mean Corpuscular Hemoglobin Concent 32.6, Red Cell Distribution Width 12.8, Platelet Count 370, Mean Platelet Volume 6.2L, Neutrophils (%) (Auto) 68.8, Lymphocytes ( %) (Auto) 20.8, Monocytes (%) (Auto) 8.4, Eosinophils (%) (Auto) 0.9, Basophils (%) (Auto) 1.1, Sodium Level [Pending], Potassium Level [Pending], Chloride Level [Pending], Carbon Dioxide Level [Pending], Blood Urea Nitrogen [Pending], Creatinine [Pending], Estimat Glomerular Filtration Rate [Pending], Glucose Level [Pending], Calcium Level [Pending], Phosphorus Level [Pending], Magnesium Level [Pending], Total Bilirubin [Pending], Aspartate Amino Transf (AST/SGOT) [ Pending], Alanine Aminotransferase (ALT/SGPT) [Pending], Alkaline Phosphatase [ Pending], Total Protein [Pending], Albumin [Pending], Globulin [Pending] Height (Feet): 5 Height (Inches): 2.00 Weight (Pounds): 104 General Appearance: lethargic Neck: normal alignment Cardiovascular: tachycardia Respiratory/Chest: decreased breath sounds Abdomen: normal bowel sounds Objective Current Medications Medications (Trade) Dose Ordered Sig/Yung Route PRN Reason Start Time Stop Time Status Last Admin Dose Admin Acetaminophen (Tylenol) 650 mg Q4H PRN RECTAL Prn Headache/Temp > 101 10/30/17 16:45 11/29/17 16:44 10/31/17 21:24 Acetaminophen (Tylenol) 650 mg Q6H PRN NG Mild Pain/Temp > 100.5 11/03/17 22:00 12/03/17 21:59 11/05/17 19:09 Chlorhexidine Gluconate (Sunita-Hex 2%) 1 applic DAILY@2000 TOPIC 10/30/17 20:00 11/29/17 19:59 11/07/17 20:30 Clonidine HCl (Catapres Tab) 0.1 mg Q4H PRN ORAL for SBP >160 11/01/17 13:00 12/01/17 12:59 11/06/17 01:16 Dextrose (Dextrose 50%) 25 ml STAT PRN IV Hypoglycemia 11/03/17 18:00 12/03/17 17:59 Dextrose (Dextrose 50%) 50 ml STAT PRN IV Hypoglycemia 11/03/17 18:00 12/03/17 17:59 Diltiazem HCl (Cardizem) 60 mg EVERY 8 HOURS NG 11/05/17 22:00 12/05/17 21:59 11/08/17 05:49 Haloperidol Lactate 5 mg/ Dextrose 56 ml @ 112 mls/hr Q1H PRN IVPB Agitation 11/02/17 10:00 12/02/17 09:59 11/02/17 12:53 Heparin Sodium (Porcine) (Heparin 5000 units/ml) 5,000 units EVERY 12 HOURS SUBQ 10/30/17 09:00 11/29/17 08:59 11/07/17 20:32 Hydrocortisone (Solu-CORTEF) 50 mg DAILY IV 11/03/17 09:00 11/30/17 18:29 11/07/17 08:01 Insulin Aspart (NovoLOG) Q4HR SUBQ 11/03/17 20:00 12/03/17 19:59 11/08/17 00:13 Levetiracetam 100 ml @ 400 mls/hr Q8H IVPB 10/30/17 17:00 11/29/17 16:59 11/08/17 00:10 Levofloxacin 150 ml @ 100 mls/hr Q24H IVPB 11/04/17 14:30 11/11/17 14:29 11/07/17 14:03 Metronidazole 100 ml @ 100 mls/hr Q8H IVPB 10/30/17 11:00 11/11/17 10:59 11/08/17 03:00 Nitroglycerin (Ntg) 0.4 mg Q5M PRN SL Prn Chest Pain 10/30/17 08:00 11/29/17 07:59 Ondansetron HCl (Zofran) 4 mg Q6H PRN IVP Nausea & Vomiting 10/30/17 08:00 11/29/17 07:59 Pantoprazole (Protonix) 40 mg DAILY IVP 11/02/17 09:00 12/02/17 08:59 11/07/17 08:01 Phenytoin 100 mg/ Sodium Chloride 57 ml @ 114 mls/hr [id number] PHENYTOIN IVPB 10/30/17 16:00 11/29/17 15:59 11/08/17 00:09 Item Value Date Time Bedside Blood Glucose 88 mg/dl 11/08/17 0500 Bedside Blood Glucose 125 mg/dl H 11/08/17 0013 Bedside Blood Glucose 105 mg/dl 11/07/17 2032 Bedside Blood Glucose 111 mg/dl 11/07/17 1615 Bedside Blood Glucose 122 mg/dl H 11/07/17 1359 Bedside Blood Glucose 95 mg/dl 11/07/17 0800 Bedside Blood Glucose 102 mg/dl 11/07/17 0500 Bedside Blood Glucose 101 mg/dl 11/07/17 0100 Salvador Garcia MD Nov 08, 2017 06:40
[2017-11-08 06:46] LABS: ALANINE AMINOTRANSFERASE 92 U/L (12-78); ALBUMIN 2.3 G/DL (3.4-5.0); ALBUMIN/GLOBULIN RATIO 0.5 (1.0-2.7); ALKALINE PHOSPHATASE 88 U/L (46-116); ANION GAP 5 mmol/L (5-15); ASPARTATE AMINO TRANSFERASE 72 U/L (15-37); BILIRUBIN,TOTAL 0.2 MG/DL (0.2-1.0); BLOOD UREA NITROGEN 17 mg/dL (7-18); CALCIUM 9.1 MG/DL (8.5-10.1); CARBON DIOXIDE 29 MMOL/L (21-32); CHLORIDE 109 MMOL/L (98-107); CREATININE 0.7 MG/DL (0.55-1.30); PHOSPHORUS 3.1 MG/DL (2.5-4.9); POTASSIUM 3.7 MMOL/L (3.5-5.1); SODIUM 143 MMOL/L (136-145)
[2017-11-08] MEDS ORDERED: LORazepam Inj 2mg/ml 1ml IV PRN (08:00)
[2017-11-08] MEDS: Hydrocortisone 100mg Inj IV SCH ×2 (08:31→18:03)
[2017-11-08] MEDS: Pantoprazole Inj IVP SCH (08:31)
[2017-11-08] MEDS: Heparin 5000 units/ml inj SUBQ SCH ×2 (08:33→22:04)
--- NOTE | 2017-11-08 08:56 | Pulmonolgy Critical Care Note ---
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 - Objective Last 24 Hour Vital Signs Date Time Temp Pulse Resp B/P (MAP) Pulse Ox O2 Delivery O2 Flow Rate FiO2 11/08/17 07:00 89 15 135/65 (88) 99 11/08/17 06:44 98 17 30 11/08/17 06:00 88 15 137/68 (91) 99 11/08/17 05:49 90 128/72 11/08/17 05:00 88 15 150/71 (97) 99 11/08/17 04:51 90 12 30 11/08/17 04:00 104 11/08/17 04:00 98.2 98 15 131/74 (93) 99 98.2 11/08/17 04:00 98 11/08/17 04:00 Mechanical Ventilator 11/08/17 04:00 30 11/08/17 03:00 98.6 98 15 150/80 (103) 99 98.6 11/08/17 02:58 99 15 30 11/08/17 02:00 98 15 147/65 (92) 99 11/08/17 01:40 98 15 30 11/08/17 01:00 99 15 138/61 (86) 99 11/08/17 00:00 30 11/08/17 00:00 99 11/08/17 00:00 98.2 99 16 158/61 (93) 100 98.2 11/08/17 00:00 Mechanical Ventilator 11/07/17 23:13 100 13 30 11/07/17 23:00 97 15 134/59 (84) 99 18 22:20 97 134/56 11/07/17 22:00 97 15 134/56 (82) 100 11/07/17 21:12 107 16 30 11/07/17 21:00 99 15 144/64 (90) 100 11/07/17 20:00 103 9/17/18 20:00 Mechanical Ventilator 11/07/17 20:00 98.0 102 16 131/58 (82) 100 98.0 11/07/17 20:00 30 11/07/17 19:00 104 17 135/60 (85) 100 11/07/17 18:56 101 15 30 11/07/17 18:00 108 17 141/68 (92) 100 11/07/17 17:00 98 17 141/63 (89) 100 11/07/17 17:00 101 13 30 11/07/17 16:00 98.1 99 16 132/83 (99) 100 98.1 11/07/17 16:00 30 11/07/17 16:00 Mechanical Ventilator 11/07/17 16:00 100 11/07/17 15:10 99 17 30 11/07/17 15:00 91 12 128/63 (84) 100 11/07/17 14:00 96 12 130/64 (86) 100 11/07/17 13:57 94 147/84 11/07/17 13:00 98 12 138/84 (102) 100 11/07/17 12:42 92 12 30 11/07/17 12:00 30 11/07/17 12:00 93 11/07/17 12:00 Mechanical Ventilator 11/07/17 12:00 98.1 98 13 143/75 (97) 100 98.1 11/07/17 11:00 115 12 145/79 (101) 100 11/07/17 10:30 80 12 30 11/07/17 10:00 86 12 132/73 (92) 100 11/07/17 09:20 99 11/07/17 09:20 85 16 30 11/07/17 09:00 86 12 152/75 (100) 100 Status: awake Condition: critical HEENT: atraumatic Lungs: clear Heart: HR/BP stable Abdomen: soft, active bowel sounds Extremities: no C/C/E Decubiti: stage Accucheck: 88 Critical Care - Subjective ROS Limited/Unobtainable: Yes Condition: critical EKG Rhythm: Sinus Rhythm FI02: 30 Vent Support Breath Rate: 12 Vent Support Mode: AC Vent Tidal Volume: 500 Sputum Amount: Moderate PEEP: 0.0 PIP: 32 Tube Feeding Amount: 45 I&O: Intake and Output 11/07/17 11/08/17 19:00 07:00 Intake Total 1069 ml 1007 ml Output Total 720 ml 655 ml Balance 349 ml 352 ml Free Water 150 ml IV Total 664 ml 257 ml Tube Feeding 405 ml 540 ml Other 60 ml Output Urine Total 720 ml 655 ml # Bowel Movements 3 4 ET-Tube: 7.5 ET Position: 23 Labs: Laboratory Tests Test 11/08/17 04:59 White Blood Count 12.9 K/UL (4.8-10.8) H Red Blood Count 3.40 M/UL (4.20-5.40) L Hemoglobin 10.2 G/DL (12.0-16.0) L Hematocrit 31.2 % (37.0-47.0) L Mean Corpuscular Volume 92 FL (80-99) Mean Corpuscular Hemoglobin 29.9 PG (27.0-31.0) Mean Corpuscular Hemoglobin Concent 32.6 G/DL (32.0-36.0) Red Cell Distribution Width 12.8 % (11.6-14.8) Platelet Count 370 K/UL (150-450) Mean Platelet Volume 6.2 FL (6.5-10.1) L Neutrophils (%) (Auto) 68.8 % (45.0-75.0) Lymphocytes (%) (Auto) 20.8 % (20.0-45.0) Monocytes (%) (Auto) 8.4 % (1.0-10.0) Eosinophils (%) (Auto) 0.9 % (0.0-3.0) Basophils (%) (Auto) 1.1 % (0.0-2.0) Sodium Level 143 MMOL/L (136-145) Potassium Level 3.7 MMOL/L (3.5-5.1) Chloride Level 109 MMOL/L (98-107) H Carbon Dioxide Level 29 MMOL/L (21-32) Anion Gap 5 mmol/L (5-15) Blood Urea Nitrogen 17 mg/dL (7-18) Creatinine 0.7 MG/DL (0.55-1.30) Estimat Glomerular Filtration Rate > 60 mL/min (>60) Glucose Level 106 MG/DL (74-106) Calcium Level 9.1 MG/DL (8.5-10.1) Phosphorus Level 3.1 MG/DL (2.5-4.9) Magnesium Level 1.9 MG/DL (1.8-2.4) Total Bilirubin 0.2 MG/DL (0.2-1.0) Aspartate Amino Transf (AST/SGOT) 72 U/L (15-37) H Alanine Aminotransferase (ALT/SGPT) 92 U/L (12-78) H Alkaline Phosphatase 88 U/L (46-116) Total Protein 6.6 G/DL (6.4-8.2) Albumin 2.3 G/DL (3.4-5.0) L Globulin 4.3 g/dL Albumin/Globulin Ratio 0.5 (1.0-2.7) L Evan Purcell MD Nov 08, 2017 08:56
--- NOTE | 2017-11-08 08:58 | Infectious Diseases Prog Note ---
Assessment/Plan Assessment/Plan 57 yo female who presented to the ED on 10/30/17 after pulmonary arrest. Sepsis - Probable Asp PNA On Abx 10/30 Sputum Cultures - Predominantly NF - +1 Steno Will hold off Tx of Steno as patient improving 10/31 Urine Cx - NGTD Leukocytosis - WBCs 16 after seizure No Fevers Seizures - Had Seizure on route to ED 10/30/17 and in the ICU as well Drug abuse - Pos for cocaine Arthritis Chronic pain. P: - Levofloxacin #05/31 - To cover Stenotrophomonas as she had new fevers - 11/04 Ceftriaxone #3 - Continue Flagyl #09/30 for asp PNA - 10/31 Vancomycin #1 - 10/31 Aztreonam - 10/30 SP Ceftriaxone - Monitor CBC and Temps - Vent management per pulm - Prognosis discussion with family per primary - Poor prognosis We will continue to follow the patient during this hospitalization. Subjective Allergies: Coded Allergies: ASPIRIN (Verified Allergy, Unknown, 10/30/17) PENICILLINS (Verified Allergy, Unknown, 10/30/17) UNABLE TO ASSESS (Unverified , 10/29/17) Subjective Afebrile On 30% FiO2 No Improvement in he mental status per neurology note 11/07/17 Objective Vital Signs Last 24 Hour Vital Signs Date Time Temp Pulse Resp B/P (MAP) Pulse Ox O2 Delivery O2 Flow Rate FiO2 11/08/17 07:00 89 15 135/65 (88) 99 11/08/17 06:44 98 17 30 11/08/17 06:00 88 15 137/68 (91) 99 11/08/17 05:49 90 128/72 11/08/17 05:00 88 15 150/71 (97) 99 11/08/17 04:51 90 12 30 11/08/17 04:00 104 11/08/17 04:00 98.2 98 15 131/74 (93) 99 98.2 11/08/17 04:00 98 11/08/17 04:00 Mechanical Ventilator 11/08/17 04:00 30 11/08/17 03:00 98.6 98 15 150/80 (103) 99 98.6 11/08/17 02:58 99 15 30 11/08/17 02:00 98 15 147/65 (92) 99 11/08/17 01:40 98 15 30 9/18/18 01:00 99 15 138/61 (86) 99 18/18 00:00 30 18/18 00:00 99 18/18 00:00 98.2 99 16 158/61 (93) 100 98.2 18/18 00:00 Mechanical Ventilator 18 23:13 100 13 30 17/18 23:00 97 15 134/59 (84) 99 1718 22:20 97 134/56 1718 22:00 97 15 134/56 (82) 100 17/18 21:12 107 16 30 17/18 21:00 99 15 144/64 (90) 100 18 20:00 103 18 20:00 Mechanical Ventilator 11/07/17 20:00 98.0 102 16 131/58 (82) 100 98.0 18 20:00 30 18 19:00 104 17 135/60 (85) 100 18 18:56 101 15 30 18 18:00 108 17 141/68 (92) 100 18 17:00 98 17 141/63 (89) 100 18 17:00 101 13 30 18 16:00 98.1 99 16 132/83 (99) 100 98.1 18 16:00 30 18 16:00 Mechanical Ventilator 11/07/17 16:00 100 18 15:10 99 17 30 18 15:00 91 12 128/63 (84) 100 18 14:00 96 12 130/64 (86) 100 11/07/18 13:57 94 147/84 18 13:00 98 12 138/84 (102) 100 18 12:42 92 12 30 18 12:00 30 18 12:00 93 18 12:00 Mechanical Ventilator 11/07/17 12:00 98.1 98 13 143/75 (97) 100 98.1 18 11:00 115 12 145/79 (101) 100 18 10:30 80 12 30 18 10:00 86 12 132/73 (92) 100 11/07/17 09:20 99 11/07/17 09:20 85 16 30 11/07/17 09:00 86 12 152/75 (100) 100 Height (Feet): 5 Height (Inches): 2.00 Weight (Pounds): 104 Objective Gen: Appears comfortable, intubated on Vent 30% O2 HEENT: NCAT, MMM, eye open at times not tracking LUNGS: Mechanical breath sounds CARDS: RRR, S1, S2 ABD: Soft, NT, ND, + BS NEURO: Pupils constricted B/L and sluggish, Not responsive Laboratory Tests Test 11/08/17 04:59 White Blood Count 12.9 K/UL (4.8-10.8) H Red Blood Count 3.40 M/UL (4.20-5.40) L Hemoglobin 10.2 G/DL (12.0-16.0) L Hematocrit 31.2 % (37.0-47.0) L Mean Corpuscular Volume 92 FL (80-99) Mean Corpuscular Hemoglobin 29.9 PG (27.0-31.0) Mean Corpuscular Hemoglobin Concent 32.6 G/DL (32.0-36.0) Red Cell Distribution Width 12.8 % (11.6-14.8) Platelet Count 370 K/UL (150-450) Mean Platelet Volume 6.2 FL (6.5-10.1) L Neutrophils (%) (Auto) 68.8 % (45.0-75.0) Lymphocytes (%) (Auto) 20.8 % (20.0-45.0) Monocytes (%) (Auto) 8.4 % (1.0-10.0) Eosinophils (%) (Auto) 0.9 % (0.0-3.0) Basophils (%) (Auto) 1.1 % (0.0-2.0) Sodium Level 143 MMOL/L (136-145) Potassium Level 3.7 MMOL/L (3.5-5.1) Chloride Level 109 MMOL/L (98-107) H Carbon Dioxide Level 29 MMOL/L (21-32) Anion Gap 5 mmol/L (5-15) Blood Urea Nitrogen 17 mg/dL (7-18) Creatinine 0.7 MG/DL (0.55-1.30) Estimat Glomerular Filtration Rate > 60 mL/min (>60) Glucose Level 106 MG/DL (74-106) Calcium Level 9.1 MG/DL (8.5-10.1) Phosphorus Level 3.1 MG/DL (2.5-4.9) Magnesium Level 1.9 MG/DL (1.8-2.4) Total Bilirubin 0.2 MG/DL (0.2-1.0) Aspartate Amino Transf (AST/SGOT) 72 U/L (15-37) H Alanine Aminotransferase (ALT/SGPT) 92 U/L (12-78) H Alkaline Phosphatase 88 U/L (46-116) Total Protein 6.6 G/DL (6.4-8.2) Albumin 2.3 G/DL (3.4-5.0) L Globulin 4.3 g/dL Albumin/Globulin Ratio 0.5 (1.0-2.7) L Current Medications Medications (Trade) Dose Ordered Sig/Yung Route PRN Reason Start Time Stop Time Status Last Admin Dose Admin Acetaminophen (Tylenol) 650 mg Q4H PRN RECTAL Prn Headache/Temp > 101 10/30/17 16:45 11/29/17 16:44 10/31/17 21:24 Acetaminophen (Tylenol) 650 mg Q6H PRN NG Mild Pain/Temp > 100.5 11/03/17 22:00 12/03/17 21:59 11/05/17 19:09 Chlorhexidine Gluconate (Sunita-Hex 2%) 1 applic DAILY@2000 TOPIC 10/30/17 20:00 11/29/17 19:59 11/07/17 20:30 Clonidine HCl (Catapres Tab) 0.1 mg Q4H PRN ORAL for SBP >160 11/01/17 13:00 12/01/17 12:59 11/06/17 01:16 Dextrose (Dextrose 50%) 25 ml STAT PRN IV Hypoglycemia 11/03/17 18:00 12/03/17 17:59 Dextrose (Dextrose 50%) 50 ml STAT PRN IV Hypoglycemia 11/03/17 18:00 12/03/17 17:59 Diltiazem HCl (Cardizem) 60 mg EVERY 8 HOURS NG 11/05/17 22:00 12/05/17 21:59 11/08/17 05:49 Haloperidol Lactate 5 mg/ Dextrose 56 ml @ 112 mls/hr Q1H PRN IVPB Agitation 11/02/17 10:00 12/02/17 09:59 11/02/17 12:53 Heparin Sodium (Porcine) (Heparin 5000 units/ml) 5,000 units EVERY 12 HOURS SUBQ 10/30/17 09:00 11/29/17 08:59 11/08/17 08:33 Hydrocortisone (Solu-CORTEF) 25 mg BID IV 11/08/17 09:00 11/30/17 18:29 11/08/17 08:31 Insulin Aspart (NovoLOG) Q6HR SUBQ 11/08/17 12:00 12/03/17 19:59 Levetiracetam 100 ml @ 400 mls/hr Q8H IVPB 10/30/17 17:00 11/29/17 16:59 11/08/17 08:32 Levofloxacin 150 ml @ 100 mls/hr Q24H IVPB 11/04/17 14:30 11/11/17 14:29 11/07/17 14:03 Lorazepam (Ativan 2mg/ml 1ml) 2 mg Q2H PRN IV For Anxiety 11/08/17 08:00 11/15/17 07:59 Metronidazole 100 ml @ 100 mls/hr Q8H IVPB 10/30/17 11:00 11/11/17 10:59 11/08/17 03:00 Nitroglycerin (Ntg) 0.4 mg Q5M PRN SL Prn Chest Pain 10/30/17 08:00 11/29/17 07:59 Ondansetron HCl (Zofran) 4 mg Q6H PRN IVP Nausea & Vomiting 10/30/17 08:00 11/29/17 07:59 Pantoprazole (Protonix) 40 mg DAILY IVP 11/02/17 09:00 12/02/17 08:59 11/08/17 08:31 Phenytoin 100 mg/ Sodium Chloride 57 ml @ 114 mls/hr [id number] PHENYTOIN IVPB 10/30/17 16:00 11/29/17 15:59 11/08/17 08:32 Gutierrez Sifuentes MD Nov 08, 2017 08:57
[2017-11-08] MEDS: metroNIDAZOLE 500mg tab GT SCH ×3 (12:00→22:02)
--- NOTE | 2017-11-08 13:11 | General Progress Note ---
Assessment/Plan Problem List: (1) Renal insufficiency ICD Codes: N28.9 - Disorder of kidney and ureter, unspecified SNOMED: 894258829, 462346154 (2) UTI (urinary tract infection) ICD Codes: N39.0 - Urinary tract infection, site not specified SNOMED: 06542938 (3) Seizure ICD Codes: R56.9 - Unspecified convulsions SNOMED: 07371414 (4) HTN (hypertension) ICD Codes: I10 - Essential (primary) hypertension SNOMED: 97377163 (5) Diabetes ICD Codes: E11.9 - Type 2 diabetes mellitus without complications SNOMED: 53338398 Status: unchanged Assessment/Plan vent abx detox neph f/u cbc bmp am Subjective Constitutional: Reports: weakness Allergies: Coded Allergies: ASPIRIN (Verified Allergy, Unknown, 10/30/17) PENICILLINS (Verified Allergy, Unknown, 10/30/17) UNABLE TO ASSESS (Unverified , 10/29/17) All Systems: reviewed and negative except above Subjective intubated sedated in icu ng Objective Last 24 Hour Vital Signs Date Time Temp Pulse Resp B/P (MAP) Pulse Ox O2 Delivery O2 Flow Rate FiO2 11/08/17 11:10 91 16 30 11/08/17 11:00 101 18 140/78 (98) 95 11/08/17 10:00 96 13 152/85 (107) 100 11/08/17 09:40 88 12 30 11/08/17 09:00 96 13 154/74 (100) 100 11/08/17 08:00 87 11/08/17 08:00 98.5 93 14 131/104 (113) 100 98.5 11/08/17 08:00 Mechanical Ventilator 11/08/17 08:00 30 11/08/17 07:00 89 15 135/65 (88) 99 11/08/17 06:44 98 17 30 11/08/17 06:00 88 15 137/68 (91) 99 11/08/17 05:49 90 128/72 11/08/17 05:00 88 15 150/71 (97) 99 11/08/17 04:51 90 12 30 11/08/17 04:00 104 11/08/17 04:00 98.2 98 15 131/74 (93) 99 98.2 11/08/17 04:00 98 9/18/18 04:00 Mechanical Ventilator 11/08/17 04:00 30 11/08/17 03:00 98.6 98 15 150/80 (103) 99 98.6 18 02:58 99 15 30 18 02:00 98 15 147/65 (92) 99 18 01:40 98 15 30 18 01:00 99 15 138/61 (86) 99 18 00:00 30 18 00:00 99 18 00:00 98.2 99 16 158/61 (93) 100 98.2 11/08/17 00:00 Mechanical Ventilator 11/07/17 23:13 100 13 30 11/07/17 23:00 97 15 134/59 (84) 99 18 22:20 97 134/56 11/07/17 22:00 97 15 134/56 (82) 100 11/07/17 21:12 107 16 30 11/07/17 21:00 99 15 144/64 (90) 100 18 20:00 103 18 20:00 Mechanical Ventilator 11/07/17 20:00 98.0 102 16 131/58 (82) 100 98.0 18 20:00 30 11/07/17 19:00 104 17 135/60 (85) 100 18 18:56 101 15 30 18 18:00 108 17 141/68 (92) 100 18 17:00 98 17 141/63 (89) 100 18 17:00 101 13 30 18 16:00 98.1 99 16 132/83 (99) 100 98.1 18 16:00 30 18 16:00 Mechanical Ventilator 18 16:00 100 18 15:10 99 17 30 18 15:00 91 12 128/63 (84) 100 18 14:00 96 12 130/64 (86) 100 18 13:57 94 147/84 Intake and Output 18 18 19:00 07:00 Intake Total 1069 ml 1007 ml Output Total 720 ml 655 ml Balance 349 ml 352 ml Free Water 150 ml IV Total 664 ml 257 ml Tube Feeding 405 ml 540 ml Other 60 ml Output Urine Total 720 ml 655 ml # Bowel Movements 3 4 Laboratory Tests 11/08/17 04:59: White Blood Count 12.9H, Red Blood Count 3.40L, Hemoglobin 10.2L, Hematocrit 31.2L, Mean Corpuscular Volume 92, Mean Corpuscular Hemoglobin 29.9, Mean Corpuscular Hemoglobin Concent 32.6, Red Cell Distribution Width 12.8, Platelet Count 370, Mean Platelet Volume 6.2L, Neutrophils (%) (Auto) 68.8, Lymphocytes ( %) (Auto) 20.8, Monocytes (%) (Auto) 8.4, Eosinophils (%) (Auto) 0.9, Basophils (%) (Auto) 1.1, Sodium Level 143, Potassium Level 3.7, Chloride Level 109H, Carbon Dioxide Level 29, Anion Gap 5, Blood Urea Nitrogen 17, Creatinine 0.7, Estimat Glomerular Filtration Rate > 60, Glucose Level 106, Calcium Level 9.1, Phosphorus Level 3.1, Magnesium Level 1.9, Total Bilirubin 0.2, Aspartate Amino Transf (AST/SGOT) 72H, Alanine Aminotransferase (ALT/SGPT) 92H, Alkaline Phosphatase 88, Total Protein 6.6, Albumin 2.3L, Globulin 4.3, Albumin/Globulin Ratio 0.5L Height (Feet): 5 Height (Inches): 2.00 Weight (Pounds): 104 General Appearance: lethargic EENT: normal ENT inspection Neck: normal alignment Cardiovascular: normal peripheral pulses, normal rate, regular rhythm Respiratory/Chest: chest wall non-tender, decreased breath sounds Abdomen: normal bowel sounds, non tender, soft Extremities: normal inspection Edema: no edema noted Arm (L), no edema noted Arm (R), no edema noted Leg (L), no edema noted Leg (R), no edema noted Pedal (L), no edema noted Pedal (R), no edema noted Generalized Neurologic: motor weakness Skin: normal pigmentation, warm/dry Josias Skinner DO Nov 08, 2017 13:11
--- NOTE | 2017-11-08 14:00 | GI Progress Note ---
Assessment/Plan Problems: (1) Diabetes ICD Codes: E11.9 - Type 2 diabetes mellitus without complications SNOMED: 25444256 (2) Cocaine abuse ICD Codes: F14.10 - Cocaine abuse, uncomplicated SNOMED: 37550361 (3) Transaminitis ICD Codes: R74.0 - Nonspecific elevation of levels of transaminase and lactic acid dehydrogenase [LDH] SNOMED: 045014125, 240498313 (4) Anemia ICD Codes: D64.9 - Anemia, unspecified SNOMED: 783871440 Status: not improved, unchanged Status Narrative Discussed with Dr. Sauceda. Assessment/Plan NGTFs fu labs supportive care peg if needed The patient was seen and examined at bedside and all new and available data was reviewed in the patients chart. I agree with the above findings, impression and plan. (Patient seen earlier today. Signature stamp does not reflect patient encounter time.). - Renaldo Sauceda MD Subjective Subjective limited Objective Last 24 Hour Vital Signs Date Time Temp Pulse Resp B/P (MAP) Pulse Ox O2 Delivery O2 Flow Rate FiO2 11/08/17 13:20 97 16 30 11/08/17 13:00 86 12 127/61 (83) 99 11/08/17 12:00 97.9 91 14 121/85 (97) 98 97.9 11/08/17 12:00 30 11/08/17 12:00 Mechanical Ventilator 11/08/17 11:10 91 16 30 11/08/17 11:00 101 18 140/78 (98) 95 11/08/17 10:00 96 13 152/85 (107) 100 11/08/17 09:40 88 12 30 11/08/17 09:00 96 13 154/74 (100) 100 11/08/17 08:00 87 11/08/17 08:00 98.5 93 14 131/104 (113) 100 98.5 11/08/17 08:00 Mechanical Ventilator 11/08/17 08:00 30 11/08/17 07:00 89 15 135/65 (88) 99 11/08/17 06:44 98 17 30 11/08/17 06:00 88 15 137/68 (91) 99 11/08/17 05:49 90 128/72 11/08/17 05:00 88 15 150/71 (97) 99 9/18/18 04:51 90 12 30 18 04:00 104 18 04:00 98.2 98 15 131/74 (93) 99 98.2 18 04:00 98 18 04:00 Mechanical Ventilator 11/08/17 04:00 30 11/08/17 03:00 98.6 98 15 150/80 (103) 99 98.6 11/08/17 02:58 99 15 30 11/08/17 02:00 98 15 147/65 (92) 99 18 01:40 98 15 30 18 01:00 99 15 138/61 (86) 99 18 00:00 30 11/08/17 00:00 99 11/08/17 00:00 98.2 99 16 158/61 (93) 100 98.2 11/08/17 00:00 Mechanical Ventilator 11/07/17 23:13 100 13 30 11/07/17 23:00 97 15 134/59 (84) 99 18 22:20 97 134/56 18 22:00 97 15 134/56 (82) 100 18 21:12 107 16 30 18 21:00 99 15 144/64 (90) 100 18 20:00 103 18 20:00 Mechanical Ventilator 11/07/17 20:00 98.0 102 16 131/58 (82) 100 98.0 18 20:00 30 18 19:00 104 17 135/60 (85) 100 18 18:56 101 15 30 18 18:00 108 17 141/68 (92) 100 18 17:00 98 17 141/63 (89) 100 18 17:00 101 13 30 18 16:00 98.1 99 16 132/83 (99) 100 98.1 18 16:00 30 18 16:00 Mechanical Ventilator 18 16:00 100 18 15:10 99 17 30 18 15:00 91 12 128/63 (84) 100 18 14:00 96 12 130/64 (86) 100 Intake and Output 11/07/17 11/08/17 19:00 07:00 Intake Total 1069 ml 1007 ml Output Total 720 ml 655 ml Balance 349 ml 352 ml Free Water 150 ml IV Total 664 ml 257 ml Tube Feeding 405 ml 540 ml Other 60 ml Output Urine Total 720 ml 655 ml # Bowel Movements 3 4 Laboratory Tests Test 11/08/17 04:59 White Blood Count 12.9 K/UL (4.8-10.8) H Red Blood Count 3.40 M/UL (4.20-5.40) L Hemoglobin 10.2 G/DL (12.0-16.0) L Hematocrit 31.2 % (37.0-47.0) L Mean Corpuscular Volume 92 FL (80-99) Mean Corpuscular Hemoglobin 29.9 PG (27.0-31.0) Mean Corpuscular Hemoglobin Concent 32.6 G/DL (32.0-36.0) Red Cell Distribution Width 12.8 % (11.6-14.8) Platelet Count 370 K/UL (150-450) Mean Platelet Volume 6.2 FL (6.5-10.1) L Neutrophils (%) (Auto) 68.8 % (45.0-75.0) Lymphocytes (%) (Auto) 20.8 % (20.0-45.0) Monocytes (%) (Auto) 8.4 % (1.0-10.0) Eosinophils (%) (Auto) 0.9 % (0.0-3.0) Basophils (%) (Auto) 1.1 % (0.0-2.0) Sodium Level 143 MMOL/L (136-145) Potassium Level 3.7 MMOL/L (3.5-5.1) Chloride Level 109 MMOL/L (98-107) H Carbon Dioxide Level 29 MMOL/L (21-32) Anion Gap 5 mmol/L (5-15) Blood Urea Nitrogen 17 mg/dL (7-18) Creatinine 0.7 MG/DL (0.55-1.30) Estimat Glomerular Filtration Rate > 60 mL/min (>60) Glucose Level 106 MG/DL (74-106) Calcium Level 9.1 MG/DL (8.5-10.1) Phosphorus Level 3.1 MG/DL (2.5-4.9) Magnesium Level 1.9 MG/DL (1.8-2.4) Total Bilirubin 0.2 MG/DL (0.2-1.0) Aspartate Amino Transf (AST/SGOT) 72 U/L (15-37) H Alanine Aminotransferase (ALT/SGPT) 92 U/L (12-78) H Alkaline Phosphatase 88 U/L (46-116) Total Protein 6.6 G/DL (6.4-8.2) Albumin 2.3 G/DL (3.4-5.0) L Globulin 4.3 g/dL Albumin/Globulin Ratio 0.5 (1.0-2.7) L Height (Feet): 5 Height (Inches): 2.00 Weight (Pounds): 104 General Appearance: WD/WN, no apparent distress, alert Cardiovascular: normal rate Respiratory/Chest: normal breath sounds, no respiratory distress Abdominal Exam: normal bowel sounds, non tender, soft, other - OGT Extremities: non-tender Risa Davenport NP Nov 08, 2017 14:00
--- NOTE | 2017-11-08 18:43 | Neurology Progress Note ---
Interim History Interim History Interim History Ms. Robertson continues to be in a comatose state. She does however exhibit spontaneous eye opening and closing. She is still exhibiting decerebrate posturing. She has had no seizures or seizure like phenomena. She continues to be artificially ventilated. There has been no improvement in her neurologic state. Review of Systems Neuro Review of Systems Unable to obtain. Objective Physical Exam Last Vital Signs Date Time Temp Pulse Resp B/P (MAP) Pulse Ox O2 Delivery O2 Flow Rate FiO2 11/08/17 18:00 94 14 146/66 (92) 97 11/08/17 16:43 30 11/08/17 16:00 Mechanical Ventilator 11/08/17 16:00 99.7 99.7 Laboratory Tests Test 11/08/17 04:59 White Blood Count 12.9 K/UL (4.8-10.8) H Red Blood Count 3.40 M/UL (4.20-5.40) L Hemoglobin 10.2 G/DL (12.0-16.0) L Hematocrit 31.2 % (37.0-47.0) L Mean Corpuscular Volume 92 FL (80-99) Mean Corpuscular Hemoglobin 29.9 PG (27.0-31.0) Mean Corpuscular Hemoglobin Concent 32.6 G/DL (32.0-36.0) Red Cell Distribution Width 12.8 % (11.6-14.8) Platelet Count 370 K/UL (150-450) Mean Platelet Volume 6.2 FL (6.5-10.1) L Neutrophils (%) (Auto) 68.8 % (45.0-75.0) Lymphocytes (%) (Auto) 20.8 % (20.0-45.0) Monocytes (%) (Auto) 8.4 % (1.0-10.0) Eosinophils (%) (Auto) 0.9 % (0.0-3.0) Basophils (%) (Auto) 1.1 % (0.0-2.0) Sodium Level 143 MMOL/L (136-145) Potassium Level 3.7 MMOL/L (3.5-5.1) Chloride Level 109 MMOL/L (98-107) H Carbon Dioxide Level 29 MMOL/L (21-32) Anion Gap 5 mmol/L (5-15) Blood Urea Nitrogen 17 mg/dL (7-18) Creatinine 0.7 MG/DL (0.55-1.30) Estimat Glomerular Filtration Rate > 60 mL/min (>60) Glucose Level 106 MG/DL (74-106) Calcium Level 9.1 MG/DL (8.5-10.1) Phosphorus Level 3.1 MG/DL (2.5-4.9) Magnesium Level 1.9 MG/DL (1.8-2.4) Total Bilirubin 0.2 MG/DL (0.2-1.0) Aspartate Amino Transf (AST/SGOT) 72 U/L (15-37) H Alanine Aminotransferase (ALT/SGPT) 92 U/L (12-78) H Alkaline Phosphatase 88 U/L (46-116) Total Protein 6.6 G/DL (6.4-8.2) Albumin 2.3 G/DL (3.4-5.0) L Globulin 4.3 g/dL Albumin/Globulin Ratio 0.5 (1.0-2.7) L Neurologic Exam Objective PHYSICAL EXAMINATION: GENERAL: She is a well-developed, cachectic, lean, black lady, lying in an ICU bed, in no acute distress, connected to a ventilator via an orotracheal tube. HEAD: Normocephalic and atraumatic. EENT: Examination benign. NECK: No neck rigidity was observed. NEUROLOGIC EXAMINATION: MENTAL STATUS EXAMINATION: She was comatose and did not respond even to deep painful stimuli. She was decerebrating spontaneously. Further mental status testing was impossible. SPEECH: Could not be tested. LANGUAGE: Could not be tested. CRANIAL NERVE EXAMINATION: II: She did not blink to threat. III, IV & : The external ocular movements were present on oculocephalic maneuvers. The pupils were 3 mm in diameter and reactive sluggishly to light. V & VII: The corneal reflexes were present, but significantly diminished. VIII: She did not respond to sounds and had no nystagmus. IX & X: The gag reflex was present but delayed on manipulating the endotracheal tube. XI: The sternocleidomastoids and trapezii could not be tested. XII: Could not be tested. MOTOR SYSTEM: The tone was increased in all four extremities with severe spasticity. Examination of muscle mass revealed generalized muscle wasting. Examination of power was impossible to perform because even on applying deep painful stimuli, no movements were seen. SENSORY EXAMINATION: She did not respond even to deep pain. REFLEXES: 1+ and bilaterally symmetrical at the biceps, triceps, brachioradialis , and knees. 0 at both ankles. The plantar responses were extensor bilaterally. COORDINATION, STANCE & GAIT: Could not be tested. Impression/Recommendations Diagnostic Impression 1. Ms. oPlly Robertson is a 57-year-old, right-handed, black lady, who does have a past history of polysubstance abuse with her recent drug of choice being cocaine, a seizure disorder, and chronic pain, who was found down in her bathroom at home with vomitus in her mouth. She then was noted to stop breathing and this progressed to cardiac failure. The paramedics were called in and she had to have advanced cardiac life support before she could be resuscitated. She was then transported to the [facility] emergency room and on the way here she was noted to have a generalized seizure. Since then, she has had multiple seizures, however, at this point in time, they are well controlled on the present regimen. 2. She continues to be in a comatose state. She does however exhibit spontaneous eye opening and closing. She is still exhibiting decerebrate posturing. She has had no seizures or seizure like phenomena. She continues to be artificially ventilated. There has been no improvement in her neurologic state. 3. On neurological examination, at this time, she is comatose and does not respond even to deep pain. She exhibits spontaneous decerebration. She does not demonstrate any focal or lateralizing findings. 4. The CT scan of the brain without contrast is benign for acute pathology. 5. Her latest laboratory data on my initial evaluation revealed that her WBC count was elevated to 17,600 with predominantly 79% being neutrophils and 15% being lymphocytes and monocytes. Her arterial blood gas revealed pCO2 low at 21.2, pO2 at 154, and pH of 7.49. Her chemistry panel revealed a creatinine elevated to 1.7. Her AST was elevated at 255, ALT elevated at 251, and alkaline phosphatase elevated at 142. Her albumin was low at 2.9. Her Urinalysis revealed 1+ leukocyte esterase, 20- 30 red blood cells, and 5-10 white blood cells per high-power field. The urine toxicology screen was positive for cocaine. 6. Her EEG done on 10/31/17 revealed a severe encephalopathy and bilateral frontal epileptogenic foci with inter-ictal discharges at times with a large field. 7. The patient's history, neurological examination, laboratory data and imaging studies are most compatible with seizures due to a hypoxic/ischemic cerebral insult and/or cocaine intoxication. 8. The prognosis for recovery of cerebral function is dismal. Recommendations 1. Continue present management. 2. Continue to treat the patient's infectious process vigorously. 3. Continue Dilantin 100 mg intravenously q.8 h. 4. Continue Keppra 1 G intravenously every 8 hours. 5. In light of her poor prognosis make decision regarding intensity of care. Denisse Lester M.D., M.S.P.H. DENISSE LESTER Nov 08, 2017 18:43
[2017-11-08] MEDS: Dyna-Hex 2% Top Sol 2oz TOPIC SCH (19:39)
--- NOTE | 2017-11-08 23:55 | Cardiology Progress Note ---
Assessment/Plan Assessment/Plan 1. Sinus tachycardia, resolved, possibly due to cocaine intoxication, continue diltiazem, echo reveals normal left ventricular systolic function with LVEF of approximately 55%. 2. Acute hypoxemic respiratory failure due to aspiration PNA. 3. Small right pneumothorax, resolved. 4. Mild pulmonary hypertension with right ventricular systolic pressure measured at 42 mmHg. 5. Seizure disorder. 6. Polysubstance abuse. Subjective Subjective Sinus rhythm at 84. Intubated. Objective Last 24 Hour Vital Signs Date Time Temp Pulse Resp B/P (MAP) Pulse Ox O2 Delivery O2 Flow Rate FiO2 11/08/17 23:00 84 14 108/62 (77) 100 11/08/17 22:50 87 12 30 11/08/17 22:02 95 125/71 11/08/17 22:00 93 12 131/68 (89) 100 11/08/17 21:26 95 12 30 11/08/17 21:00 100 14 125/71 (89) 98 11/08/17 20:00 99.0 100 15 158/77 (104) 100 99.0 11/08/17 20:00 100 11/08/17 20:00 30 11/08/17 20:00 Mechanical Ventilator 11/08/17 19:29 102 15 30 11/08/17 19:00 96 14 173/74 (107) 98 11/08/17 18:00 94 14 146/66 (92) 97 11/08/17 17:00 93 13 137/79 (98) 99 11/08/17 16:43 95 16 30 11/08/17 16:00 Mechanical Ventilator 11/08/17 16:00 30 11/08/17 16:00 99.7 90 15 135/72 (93) 99 99.7 11/08/17 15:30 83 11/08/17 15:00 88 12 112/60 (77) 99 11/08/17 14:44 94 16 30 11/08/17 14:23 94 127/67 11/08/17 14:00 91 14 127/67 (87) 99 11/08/17 13:20 97 16 30 11/08/17 13:00 86 12 127/61 (83) 99 11/08/17 12:00 97.9 91 14 121/85 (97) 98 97.9 11/08/17 12:00 96 11/08/17 12:00 30 11/08/17 12:00 Mechanical Ventilator 11/08/17 11:10 91 16 30 11/08/17 11:00 101 18 140/78 (98) 95 11/08/17 10:00 96 13 152/85 (107) 100 11/08/17 09:40 88 12 30 11/08/17 09:00 96 13 154/74 (100) 100 11/08/17 08:00 87 11/08/17 08:00 98.5 93 14 131/104 (113) 100 98.5 11/08/17 08:00 Mechanical Ventilator 11/08/17 08:00 30 11/08/17 07:00 89 15 135/65 (88) 99 11/08/17 06:44 98 17 30 11/08/17 06:00 88 15 137/68 (91) 99 11/08/17 05:49 90 128/72 11/08/17 05:00 88 15 150/71 (97) 99 11/08/17 04:51 90 12 30 11/08/17 04:00 104 11/08/17 04:00 98.2 98 15 131/74 (93) 99 98.2 11/08/17 04:00 98 11/08/17 04:00 Mechanical Ventilator 11/08/17 04:00 30 11/08/17 03:00 98.6 98 15 150/80 (103) 99 98.6 11/08/17 02:58 99 15 30 11/08/17 02:00 98 15 147/65 (92) 99 11/08/17 01:40 98 15 30 11/08/17 01:00 99 15 138/61 (86) 99 11/08/17 00:00 30 11/08/17 00:00 99 11/08/17 00:00 98.2 99 16 158/61 (93) 100 98.2 11/08/17 00:00 Mechanical Ventilator Intake and Output 11/07/17 11/08/17 19:00 07:00 Intake Total 1069 ml 1007 ml Output Total 720 ml 655 ml Balance 349 ml 352 ml Free Water 150 ml IV Total 664 ml 257 ml Tube Feeding 405 ml 540 ml Other 60 ml Output Urine Total 720 ml 655 ml # Bowel Movements 3 4 2D Echo: EF 60-65%, mild LVH, Mild AR, normal LVDD, RVSP 42 mmHg Laboratory Tests Test 11/08/17 04:59 White Blood Count 12.9 K/UL (4.8-10.8) H Red Blood Count 3.40 M/UL (4.20-5.40) L Hemoglobin 10.2 G/DL (12.0-16.0) L Hematocrit 31.2 % (37.0-47.0) L Mean Corpuscular Volume 92 FL (80-99) Mean Corpuscular Hemoglobin 29.9 PG (27.0-31.0) Mean Corpuscular Hemoglobin Concent 32.6 G/DL (32.0-36.0) Red Cell Distribution Width 12.8 % (11.6-14.8) Platelet Count 370 K/UL (150-450) Mean Platelet Volume 6.2 FL (6.5-10.1) L Neutrophils (%) (Auto) 68.8 % (45.0-75.0) Lymphocytes (%) (Auto) 20.8 % (20.0-45.0) Monocytes (%) (Auto) 8.4 % (1.0-10.0) Eosinophils (%) (Auto) 0.9 % (0.0-3.0) Basophils (%) (Auto) 1.1 % (0.0-2.0) Sodium Level 143 MMOL/L (136-145) Potassium Level 3.7 MMOL/L (3.5-5.1) Chloride Level 109 MMOL/L (98-107) H Carbon Dioxide Level 29 MMOL/L (21-32) Anion Gap 5 mmol/L (5-15) Blood Urea Nitrogen 17 mg/dL (7-18) Creatinine 0.7 MG/DL (0.55-1.30) Estimat Glomerular Filtration Rate > 60 mL/min (>60) Glucose Level 106 MG/DL (74-106) Calcium Level 9.1 MG/DL (8.5-10.1) Phosphorus Level 3.1 MG/DL (2.5-4.9) Magnesium Level 1.9 MG/DL (1.8-2.4) Total Bilirubin 0.2 MG/DL (0.2-1.0) Aspartate Amino Transf (AST/SGOT) 72 U/L (15-37) H Alanine Aminotransferase (ALT/SGPT) 92 U/L (12-78) H Alkaline Phosphatase 88 U/L (46-116) Total Protein 6.6 G/DL (6.4-8.2) Albumin 2.3 G/DL (3.4-5.0) L Globulin 4.3 g/dL Albumin/Globulin Ratio 0.5 (1.0-2.7) L Objective HEENT: Atraumatic and normocephalic. Anicteric. Pupils are equal, round, and reactive to light and accommodation. NECK: JVP cannot be assessed due to intubation. CARDIOVASCULAR: Normal S1, S2, regular rate rhythm, no murmurs, gallops, or rubs. LUNGS: Diminished breath sounds in both bases. ABDOMEN: Soft, nontender, and nondistended. Positive bowel sounds. EXTREMITIES: No evidence of edema, clubbing, or cyanosis. Geovany Brown MD Nov 08, 2017 23:55
[2017-11-09] VITALS (24 sets, daily range): BP systolic 93–161; BP diastolic 62–88
[2017-11-09] MEDS: levETIRAcetam 1,000mg/NS100ml 100 ML IVPB SCH ×3 (00:14→16:27)
[2017-11-09] MEDS: Phenytoin 100 MG in NS 55 ML IVPB SCH ×3 (00:14→16:27)
[2017-11-09 05:16] LABS: BASOPHILS % (AUTO) 0.8 % (0.0-2.0); EOSINOPHILS % (AUTO) 0.8 % (0.0-3.0); HEMATOCRIT 32.1 % (37.0-47.0); HEMOGLOBIN 10.5 G/DL (12.0-16.0); LYMPHOCYTES % (AUTO) 27.1 % (20.0-45.0); MEAN CORPUSCULAR VOLUME 92 FL (80-99); MONOCYTES % (AUTO) 7.2 % (1.0-10.0); NEUTROPHILS % (AUTO) 64.2 % (45.0-75.0); PLATELET COUNT 433 K/UL (150-450); RED BLOOD COUNT 3.49 M/UL (4.20-5.40); RED CELL DISTRIBUTION WIDTH 13.1 % (11.6-14.8); WHITE BLOOD COUNT 12.7 K/UL (4.8-10.8)
[2017-11-09 05:20] LABS: ALANINE AMINOTRANSFERASE 93 U/L (12-78); ALBUMIN 2.4 G/DL (3.4-5.0); ALBUMIN/GLOBULIN RATIO 0.6 (1.0-2.7); ALKALINE PHOSPHATASE 95 U/L (46-116); ANION GAP 3 mmol/L (5-15); ASPARTATE AMINO TRANSFERASE 62 U/L (15-37); BILIRUBIN,TOTAL 0.2 MG/DL (0.2-1.0); BLOOD UREA NITROGEN 19 mg/dL (7-18); CARBON DIOXIDE 32 MMOL/L (21-32); CHLORIDE 107 MMOL/L (98-107); CREATININE 0.7 MG/DL (0.55-1.30); POTASSIUM 3.1 MMOL/L (3.5-5.1); SODIUM 142 MMOL/L (136-145)
[2017-11-09] MEDS: metroNIDAZOLE 500mg tab GT SCH ×3 (05:20→22:06)
[2017-11-09] MEDS: dilTIAZem HCl 60mg tab NG SCH ×3 (05:21→22:05)
[2017-11-09] MEDS: NovoLOG Insulin Flexpen SUBQ SCH ×4 (06:00→17:28)
--- NOTE | 2017-11-09 07:27 | General Progress Note ---
Assessment/Plan Problem List: (1) Hypoglycemia ICD Codes: E16.2 - Hypoglycemia, unspecified SNOMED: 644035715 (2) SLE (systemic lupus erythematosus) ICD Codes: M32.9 - Systemic lupus erythematosus, unspecified SNOMED: 81867197 (3) Cocaine abuse ICD Codes: F14.10 - Cocaine abuse, uncomplicated SNOMED: 67512418 (4) Elevated transaminase measurement ICD Codes: R74.0 - Nonspecific elevation of levels of transaminase and lactic acid dehydrogenase [LDH] SNOMED: 217925787, 317789745 (5) Diabetes ICD Codes: E11.9 - Type 2 diabetes mellitus without complications SNOMED: 74621970 (6) Pneumothorax on right ICD Codes: J93.9 - Pneumothorax, unspecified SNOMED: 844128308 (7) Seizure ICD Codes: R56.9 - Unspecified convulsions SNOMED: 03050875 Assessment/Plan - continue SoluCortef 25 mg bid - continue BG monitoring every 6 hours - hypoglycemia protocol - NISS low dose Subjective ROS Limited/Unobtainable: Yes Allergies: Coded Allergies: ASPIRIN (Verified Allergy, Unknown, 10/30/17) PENICILLINS (Verified Allergy, Unknown, 10/30/17) UNABLE TO ASSESS (Unverified , 10/29/17) Subjective in ICU on vent neurological status unchanged Objective Last 24 Hour Vital Signs Date Time Temp Pulse Resp B/P (MAP) Pulse Ox O2 Delivery O2 Flow Rate FiO2 11/09/17 07:00 99 14 133/72 (92) 100 11/09/17 06:00 83 14 119/63 (81) 100 11/09/17 05:21 85 147/76 11/09/17 05:19 85 12 Mechanical Ventilator 30 11/09/17 05:18 85 12 30 11/09/17 05:00 83 14 119/62 (81) 100 11/09/17 04:00 97 11/09/17 04:00 30 11/09/17 04:00 Mechanical Ventilator 11/09/17 04:00 98.8 97 15 147/76 (99) 100 98.8 11/09/17 03:05 87 12 30 11/09/17 03:00 92 14 153/76 (101) 100 11/09/17 02:00 104 16 113/67 (82) 100 11/09/17 01:08 90 12 30 9/19/18 01:00 95 14 128/74 (92) 100 19/18 00:00 95 1918 00:00 Mechanical Ventilator 18 00:00 98.4 101 15 142/88 (106) 100 98.4 18/18 23:00 84 14 108/62 (77) 100 18/18 22:50 87 12 30 18/18 22:02 95 125/71 18/18 22:00 93 12 131/68 (89) 100 18/18 21:26 95 12 30 18/18 21:00 100 14 125/71 (89) 98 18/18 20:00 99.0 100 15 158/77 (104) 100 99.0 18 20:00 100 18 20:00 30 11/08/18 20:00 Mechanical Ventilator 18 19:29 102 15 30 11/08/18 19:00 96 14 173/74 (107) 98 11/08/18 18:00 94 14 146/66 (92) 97 18/18 17:00 93 13 137/79 (98) 99 11/08/18 16:43 95 16 30 11/08/18 16:00 Mechanical Ventilator 18 16:00 30 18 16:00 99.7 90 15 135/72 (93) 99 99.7 11/08/18 15:30 83 18/18 15:00 88 12 112/60 (77) 99 18/18 14:44 94 16 30 18/18 14:23 94 127/67 18/18 14:00 91 14 127/67 (87) 99 18/18 13:20 97 16 30 18/18 13:00 86 12 127/61 (83) 99 1818 12:00 97.9 91 14 121/85 (97) 98 97.9 18 12:00 96 11/08/18 12:00 30 11/08/18 12:00 Mechanical Ventilator 18 11:10 91 16 30 18/18 11:00 101 18 140/78 (98) 95 18 10:00 96 13 152/85 (107) 100 9/18/18 09:40 88 12 30 11/08/17 09:00 96 13 154/74 (100) 100 11/08/17 08:00 87 11/08/17 08:00 98.5 93 14 131/104 (113) 100 98.5 11/08/17 08:00 Mechanical Ventilator 11/08/17 08:00 30 Intake and Output 11/08/17 11/09/17 19:00 07:00 Intake Total 854 ml 1012 ml Output Total 680 ml 680 ml Balance 174 ml 332 ml Free Water 150 ml IV Total 314 ml 157 ml Tube Feeding 540 ml 585 ml Other 120 ml Output Urine Total 680 ml 680 ml # Bowel Movements 3 4 Laboratory Tests 11/09/17 04:00: White Blood Count 12.7H, Red Blood Count 3.49L, Hemoglobin 10.5L, Hematocrit 32.1L, Mean Corpuscular Volume 92, Mean Corpuscular Hemoglobin 30.0, Mean Corpuscular Hemoglobin Concent 32.7, Red Cell Distribution Width 13.1, Platelet Count 433, Mean Platelet Volume 5.9L, Neutrophils (%) (Auto) 64.2, Lymphocytes ( %) (Auto) 27.1, Monocytes (%) (Auto) 7.2, Eosinophils (%) (Auto) 0.8, Basophils (%) (Auto) 0.8, Sodium Level 142, Potassium Level 3.1L, Chloride Level 107, Carbon Dioxide Level 32, Anion Gap 3L, Blood Urea Nitrogen 19H, Creatinine 0.7, Estimat Glomerular Filtration Rate > 60, Glucose Level 96, Calcium Level 9.0, Total Bilirubin 0.2, Aspartate Amino Transf (AST/SGOT) 62H, Alanine Aminotransferase (ALT/SGPT) 93H, Alkaline Phosphatase 95, Pro-B-Type Natriuretic Peptide 116, Total Protein 6.7, Albumin 2.4L, Globulin 4.3, Albumin/ Globulin Ratio 0.6L Height (Feet): 5 Height (Inches): 2.00 Weight (Pounds): 105 General Appearance: moderate distress Neck: normal alignment Cardiovascular: normal rate Respiratory/Chest: decreased breath sounds Abdomen: normal bowel sounds Pelvis: normal external exam Objective Current Medications Medications (Trade) Dose Ordered Sig/Yung Route PRN Reason Start Time Stop Time Status Last Admin Dose Admin Acetaminophen (Tylenol) 650 mg Q4H PRN RECTAL Prn Headache/Temp > 101 10/30/17 16:45 11/29/17 16:44 10/31/17 21:24 Acetaminophen (Tylenol) 650 mg Q6H PRN NG Mild Pain/Temp > 100.5 11/03/17 22:00 12/03/17 21:59 11/05/17 19:09 Chlorhexidine Gluconate (Sunita-Hex 2%) 1 applic DAILY@2000 TOPIC 10/30/17 20:00 11/29/17 19:59 11/08/17 19:39 Clonidine HCl (Catapres Tab) 0.1 mg Q4H PRN ORAL for SBP >160 11/01/17 13:00 12/01/17 12:59 11/06/17 01:16 Dextrose (Dextrose 50%) 25 ml STAT PRN IV Hypoglycemia 11/03/17 18:00 12/03/17 17:59 Dextrose (Dextrose 50%) 50 ml STAT PRN IV Hypoglycemia 11/03/17 18:00 12/03/17 17:59 Diltiazem HCl (Cardizem) 60 mg EVERY 8 HOURS NG 11/05/17 22:00 12/05/17 21:59 11/09/17 05:21 Haloperidol Lactate 5 mg/ Dextrose 56 ml @ 112 mls/hr Q1H PRN IVPB Agitation 11/02/17 10:00 12/02/17 09:59 11/02/17 12:53 Heparin Sodium (Porcine) (Heparin 5000 units/ml) 5,000 units EVERY 12 HOURS SUBQ 10/30/17 09:00 11/29/17 08:59 11/08/17 22:04 Hydrocortisone (Solu-CORTEF) 25 mg BID IV 11/08/17 09:00 11/30/17 18:29 11/08/17 18:03 Insulin Aspart (NovoLOG) Q6HR SUBQ 11/08/17 12:00 12/03/17 19:59 11/08/17 18:17 Levetiracetam 100 ml @ 400 mls/hr Q8H IVPB 10/30/17 17:00 11/29/17 16:59 11/09/17 00:14 Levofloxacin (Levaquin) 750 mg Q48H GT 11/09/17 09:00 11/14/17 23:00 Lorazepam (Ativan 2mg/ml 1ml) 2 mg Q2H PRN IV For Anxiety 11/08/17 08:00 11/15/17 07:59 11/08/17 19:37 Metronidazole (Flagyl) 500 mg Q8HR GT 11/08/17 11:30 11/10/17 23:00 11/09/17 05:20 Nitroglycerin (Ntg) 0.4 mg Q5M PRN SL Prn Chest Pain 10/30/17 08:00 11/29/17 07:59 Ondansetron HCl (Zofran) 4 mg Q6H PRN IVP Nausea & Vomiting 10/30/17 08:00 11/29/17 07:59 Pantoprazole (Protonix) 40 mg DAILY IVP 11/02/17 09:00 12/02/17 08:59 11/08/17 08:31 Phenytoin 100 mg/ Sodium Chloride 57 ml @ 114 mls/hr [id number] PHENYTOIN IVPB 10/30/17 16:00 11/29/17 15:59 11/09/17 00:14 Item Value Date Time Bedside Blood Glucose 96 mg/dl 11/09/17 0600 Bedside Blood Glucose 101 mg/dl 11/09/17 0000 Bedside Blood Glucose 114 mg/dl 11/08/17 1817 Bedside Blood Glucose 119 mg/dl 11/08/17 1203 Bedside Blood Glucose 108 mg/dl 11/08/17 0800 Salavdor Garcia MD Nov 09, 2017 07:27
[2017-11-09] MEDS: Pantoprazole Inj IVP SCH (08:22)
[2017-11-09] MEDS: Hydrocortisone 100mg Inj IV SCH ×2 (08:23→17:26)
[2017-11-09] MEDS: Heparin 5000 units/ml inj SUBQ SCH ×2 (08:26→20:31)
--- NOTE | 2017-11-09 09:01 | Diagnostic Imaging Report ---
Indication: Dyspnea Technique: One view of the chest Comparison: 11/07/2017 Findings: Is stable satisfactory positions of endotracheal tube, nasogastric tube, basically and central venous catheter. Less optimal inspiration, with some crowding of bronchovascular markings. Equivocally increased interstitial opacity in the right lung, probably an artifact of low lung volume. Heart size is normal. Impression: Equivocal increased interstitial opacities in the right lung, probably artifactual. Otherwise, little interim environmental change analyst 2 days
--- NOTE | 2017-11-09 10:38 | Pulmonolgy Critical Care Note ---
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, 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 - Objective Last 24 Hour Vital Signs Date Time Temp Pulse Resp B/P (MAP) Pulse Ox O2 Delivery O2 Flow Rate FiO2 11/09/17 10:00 98 13 132/74 (93) 99 11/09/17 09:00 98 12 140/80 (100) 100 11/09/17 08:35 94 24 30 11/09/17 08:00 99.1 92 13 100 99.1 11/09/17 08:00 96 11/09/17 08:00 Mechanical Ventilator 11/09/17 08:00 30 11/09/17 08:00 99.1 92 13 121/67 (85) 100 99.1 11/09/17 07:05 97 27 30 11/09/17 07:00 99 14 133/72 (92) 100 11/09/17 06:00 83 14 119/63 (81) 100 11/09/17 05:21 85 147/76 11/09/17 05:19 85 12 Mechanical Ventilator 30 11/09/17 05:18 85 12 30 11/09/17 05:00 83 14 119/62 (81) 100 11/09/17 04:00 97 11/09/17 04:00 30 11/09/17 04:00 Mechanical Ventilator 11/09/17 04:00 98.8 97 15 147/76 (99) 100 98.8 11/09/17 03:05 87 12 30 11/09/17 03:00 92 14 153/76 (101) 100 11/09/17 02:00 104 16 113/67 (82) 100 11/09/17 01:08 90 12 30 11/09/17 01:00 95 14 128/74 (92) 100 9/19/18 00:00 95 18 00:00 Mechanical Ventilator 11/09/17 00:00 98.4 101 15 142/88 (106) 100 98.4 11/08/17 23:00 84 14 108/62 (77) 100 18 22:50 87 12 30 18 22:02 95 125/71 18 22:00 93 12 131/68 (89) 100 18 21:26 95 12 30 18 21:00 100 14 125/71 (89) 98 18 20:00 99.0 100 15 158/77 (104) 100 99.0 11/08/17 20:00 100 11/08/17 20:00 30 11/08/17 20:00 Mechanical Ventilator 11/08/17 19:29 102 15 30 11/08/17 19:00 96 14 173/74 (107) 98 11/08/17 18:00 94 14 146/66 (92) 97 11/08/17 17:00 93 13 137/79 (98) 99 18 16:43 95 16 30 18 16:00 Mechanical Ventilator 11/08/17 16:00 30 18 16:00 99.7 90 15 135/72 (93) 99 99.7 11/08/17 15:30 83 18 15:00 88 12 112/60 (77) 99 18 14:44 94 16 30 18 14:23 94 127/67 18 14:00 91 14 127/67 (87) 99 18 13:20 97 16 30 18 13:00 86 12 127/61 (83) 99 18 12:00 97.9 91 14 121/85 (97) 98 97.9 11/08/17 12:00 96 18 12:00 30 11/08/17 12:00 Mechanical Ventilator 11/08/17 11:10 91 16 30 11/08/17 11:00 101 18 140/78 (98) 95 Status: awake Condition: critical Lungs: clear Heart: HR/BP stable, regular Abdomen: active bowel sounds, feeding tube Extremities: edema Decubiti: location Accucheck: 96 Critical Care - Subjective ROS Limited/Unobtainable: No Condition: critical EKG Rhythm: Sinus Rhythm FI02: 30 Vent Support Breath Rate: 12 Vent Support Mode: AC Vent Tidal Volume: 500 Sputum Amount: Moderate PEEP: 0.0 PIP: 31 Tube Feeding Amount: 45 I&O: Intake and Output 11/08/17 11/09/17 19:00 07:00 Intake Total 854 ml 1012 ml Output Total 680 ml 680 ml Balance 174 ml 332 ml Free Water 150 ml IV Total 314 ml 157 ml Tube Feeding 540 ml 585 ml Other 120 ml Output Urine Total 680 ml 680 ml # Bowel Movements 3 4 ET-Tube: 7.5 ET Position: 23 Labs: Laboratory Tests Test 11/09/17 04:00 White Blood Count 12.7 K/UL (4.8-10.8) H Red Blood Count 3.49 M/UL (4.20-5.40) L Hemoglobin 10.5 G/DL (12.0-16.0) L Hematocrit 32.1 % (37.0-47.0) L Mean Corpuscular Volume 92 FL (80-99) Mean Corpuscular Hemoglobin 30.0 PG (27.0-31.0) Mean Corpuscular Hemoglobin Concent 32.7 G/DL (32.0-36.0) Red Cell Distribution Width 13.1 % (11.6-14.8) Platelet Count 433 K/UL (150-450) Mean Platelet Volume 5.9 FL (6.5-10.1) L Neutrophils (%) (Auto) 64.2 % (45.0-75.0) Lymphocytes (%) (Auto) 27.1 % (20.0-45.0) Monocytes (%) (Auto) 7.2 % (1.0-10.0) Eosinophils (%) (Auto) 0.8 % (0.0-3.0) Basophils (%) (Auto) 0.8 % (0.0-2.0) Sodium Level 142 MMOL/L (136-145) Potassium Level 3.1 MMOL/L (3.5-5.1) L Chloride Level 107 MMOL/L (98-107) Carbon Dioxide Level 32 MMOL/L (21-32) Anion Gap 3 mmol/L (5-15) L Blood Urea Nitrogen 19 mg/dL (7-18) H Creatinine 0.7 MG/DL (0.55-1.30) Estimat Glomerular Filtration Rate > 60 mL/min (>60) Glucose Level 96 MG/DL (74-106) Calcium Level 9.0 MG/DL (8.5-10.1) Total Bilirubin 0.2 MG/DL (0.2-1.0) Aspartate Amino Transf (AST/SGOT) 62 U/L (15-37) H Alanine Aminotransferase (ALT/SGPT) 93 U/L (12-78) H Alkaline Phosphatase 95 U/L (46-116) Pro-B-Type Natriuretic Peptide 116 pg/mL (0-125) Total Protein 6.7 G/DL (6.4-8.2) Albumin 2.4 G/DL (3.4-5.0) L Globulin 4.3 g/dL Albumin/Globulin Ratio 0.6 (1.0-2.7) L Evan Purcell MD Nov 09, 2017 10:38
--- NOTE | 2017-11-09 12:17 | Infectious Diseases Prog Note ---
Assessment/Plan Assessment/Plan 57 yo female who presented to the ED on 10/30/17 after pulmonary arrest. Sepsis - Probable Asp PNA On Abx 10/30 Sputum Cultures - Predominantly NF - +1 Steno Will hold off Tx of Steno as patient improving 10/31 Urine Cx - NGTD Leukocytosis - WBCs 16 after seizure No Fevers Seizures - Had Seizure on route to ED 10/30/17 and in the ICU as well Drug abuse - Pos for cocaine Arthritis Chronic pain. P: - Levofloxacin #06/30 - To cover Stenotrophomonas as she had new fevers - 11/04 Ceftriaxone #3 - Continue Flagyl #10/31 for asp PNA - 10/31 Vancomycin #1 - 10/31 Aztreonam - 10/30 SP Ceftriaxone - Monitor CBC and Temps - Vent management per pulm - Prognosis discussion with family per primary - Poor prognosis We will continue to follow the patient during this hospitalization. Subjective Allergies: Coded Allergies: ASPIRIN (Verified Allergy, Unknown, 10/30/17) PENICILLINS (Verified Allergy, Unknown, 10/30/17) UNABLE TO ASSESS (Unverified , 10/29/17) Subjective Afebrile On 30% FiO2 Objective Vital Signs Last 24 Hour Vital Signs Date Time Temp Pulse Resp B/P (MAP) Pulse Ox O2 Delivery O2 Flow Rate FiO2 11/09/17 11:00 97 13 133/75 (94) 99 11/09/17 10:40 98 12 30 11/09/17 10:00 98 13 132/74 (93) 99 11/09/17 09:00 98 12 140/80 (100) 100 11/09/17 08:35 94 24 30 11/09/17 08:00 99.1 92 13 100 99.1 11/09/17 08:00 96 11/09/17 08:00 Mechanical Ventilator 11/09/17 08:00 30 11/09/17 08:00 99.1 92 13 121/67 (85) 100 99.1 11/09/17 07:05 97 27 30 11/09/17 07:00 99 14 133/72 (92) 100 11/09/17 06:00 83 14 119/63 (81) 100 11/09/17 05:21 85 147/76 11/09/17 05:19 85 12 Mechanical Ventilator 30 11/09/17 05:18 85 12 30 9/19/18 05:00 83 14 119/62 (81) 100 19/18 04:00 97 19/18 04:00 30 11/09/18 04:00 Mechanical Ventilator 18 04:00 98.8 97 15 147/76 (99) 100 98.8 18 03:05 87 12 30 19/18 03:00 92 14 153/76 (101) 100 18 02:00 104 16 113/67 (82) 100 11/09/18 01:08 90 12 30 11/09/18 01:00 95 14 128/74 (92) 100 11/09/18 00:00 95 18 00:00 Mechanical Ventilator 11/09/17 00:00 98.4 101 15 142/88 (106) 100 98.4 18/18 23:00 84 14 108/62 (77) 100 18/18 22:50 87 12 30 18/18 22:02 95 125/71 18/18 22:00 93 12 131/68 (89) 100 18/18 21:26 95 12 30 18/18 21:00 100 14 125/71 (89) 98 18/18 20:00 99.0 100 15 158/77 (104) 100 99.0 18/18 20:00 100 18/18 20:00 30 18/18 20:00 Mechanical Ventilator 18 19:29 102 15 30 18/18 19:00 96 14 173/74 (107) 98 18/18 18:00 94 14 146/66 (92) 97 18/18 17:00 93 13 137/79 (98) 99 18/18 16:43 95 16 30 18/18 16:00 Mechanical Ventilator 18/18 16:00 30 18/18 16:00 99.7 90 15 135/72 (93) 99 99.7 18/18 15:30 83 918/18 15:00 88 12 112/60 (77) 99 9/18/18 14:44 94 16 30 918/18 14:23 94 127/67 9/18/18 14:00 91 14 127/67 (87) 99 9/18/18 13:20 97 16 30 11/08/17 13:00 86 12 127/61 (83) 99 Height (Feet): 5 Height (Inches): 2.00 Weight (Pounds): 105 Objective Gen: On Vent 30% O2 HEENT: NCAT, MMM, eye open at times not tracking LUNGS: Mechanical breath sounds CARDS: RRR, S1, S2 ABD: Soft, NT, ND, + BS NEURO: Pupils constricted B/L and sluggish, Not responsive Laboratory Tests Test 11/09/17 04:00 White Blood Count 12.7 K/UL (4.8-10.8) H Red Blood Count 3.49 M/UL (4.20-5.40) L Hemoglobin 10.5 G/DL (12.0-16.0) L Hematocrit 32.1 % (37.0-47.0) L Mean Corpuscular Volume 92 FL (80-99) Mean Corpuscular Hemoglobin 30.0 PG (27.0-31.0) Mean Corpuscular Hemoglobin Concent 32.7 G/DL (32.0-36.0) Red Cell Distribution Width 13.1 % (11.6-14.8) Platelet Count 433 K/UL (150-450) Mean Platelet Volume 5.9 FL (6.5-10.1) L Neutrophils (%) (Auto) 64.2 % (45.0-75.0) Lymphocytes (%) (Auto) 27.1 % (20.0-45.0) Monocytes (%) (Auto) 7.2 % (1.0-10.0) Eosinophils (%) (Auto) 0.8 % (0.0-3.0) Basophils (%) (Auto) 0.8 % (0.0-2.0) Sodium Level 142 MMOL/L (136-145) Potassium Level 3.1 MMOL/L (3.5-5.1) L Chloride Level 107 MMOL/L (98-107) Carbon Dioxide Level 32 MMOL/L (21-32) Anion Gap 3 mmol/L (5-15) L Blood Urea Nitrogen 19 mg/dL (7-18) H Creatinine 0.7 MG/DL (0.55-1.30) Estimat Glomerular Filtration Rate > 60 mL/min (>60) Glucose Level 96 MG/DL (74-106) Calcium Level 9.0 MG/DL (8.5-10.1) Total Bilirubin 0.2 MG/DL (0.2-1.0) Aspartate Amino Transf (AST/SGOT) 62 U/L (15-37) H Alanine Aminotransferase (ALT/SGPT) 93 U/L (12-78) H Alkaline Phosphatase 95 U/L (46-116) Pro-B-Type Natriuretic Peptide 116 pg/mL (0-125) Total Protein 6.7 G/DL (6.4-8.2) Albumin 2.4 G/DL (3.4-5.0) L Globulin 4.3 g/dL Albumin/Globulin Ratio 0.6 (1.0-2.7) L Current Medications Medications (Trade) Dose Ordered Sig/Yung Route PRN Reason Start Time Stop Time Status Last Admin Dose Admin Acetaminophen (Tylenol) 650 mg Q4H PRN RECTAL Prn Headache/Temp > 101 10/30/17 16:45 11/29/17 16:44 10/31/17 21:24 Acetaminophen (Tylenol) 650 mg Q6H PRN NG Mild Pain/Temp > 100.5 11/03/17 22:00 12/03/17 21:59 11/05/17 19:09 Chlorhexidine Gluconate (Sunita-Hex 2%) 1 applic DAILY@2000 TOPIC 10/30/17 20:00 11/29/17 19:59 11/08/17 19:39 Clonidine HCl (Catapres Tab) 0.1 mg Q4H PRN ORAL for SBP >160 11/01/17 13:00 12/01/17 12:59 11/06/17 01:16 Dextrose (Dextrose 50%) 25 ml STAT PRN IV Hypoglycemia 11/03/17 18:00 12/03/17 17:59 Dextrose (Dextrose 50%) 50 ml STAT PRN IV Hypoglycemia 11/03/17 18:00 12/03/17 17:59 Diltiazem HCl (Cardizem) 60 mg EVERY 8 HOURS NG 11/05/17 22:00 12/05/17 21:59 11/09/17 05:21 Haloperidol Lactate 5 mg/ Dextrose 56 ml @ 112 mls/hr Q1H PRN IVPB Agitation 11/02/17 10:00 12/02/17 09:59 9/12/18 12:53 Heparin Sodium (Porcine) (Heparin 5000 units/ml) 5,000 units EVERY 12 HOURS SUBQ 10/30/17 09:00 11/29/17 08:59 11/09/17 08:26 Hydrocortisone (Solu-CORTEF) 25 mg BID IV 11/08/17 09:00 11/30/17 18:29 11/09/17 08:23 Insulin Aspart (NovoLOG) Q6HR SUBQ 11/08/17 12:00 12/03/17 19:59 11/09/17 11:11 Levetiracetam 100 ml @ 400 mls/hr Q8H IVPB 10/30/17 17:00 11/29/17 16:59 11/09/17 08:24 Levofloxacin (Levaquin) 750 mg Q48H GT 11/09/17 09:00 11/14/17 23:00 11/09/17 08:23 Lorazepam (Ativan 2mg/ml 1ml) 2 mg Q2H PRN IV For Anxiety 11/08/17 08:00 11/15/17 07:59 11/08/17 19:37 Metronidazole (Flagyl) 500 mg Q8HR GT 11/08/17 11:30 11/10/17 23:00 11/09/17 05:20 Nitroglycerin (Ntg) 0.4 mg Q5M PRN SL Prn Chest Pain 10/30/17 08:00 11/29/17 07:59 Ondansetron HCl (Zofran) 4 mg Q6H PRN IVP Nausea & Vomiting 10/30/17 08:00 11/29/17 07:59 Pantoprazole (Protonix) 40 mg DAILY IVP 11/02/17 09:00 12/02/17 08:59 11/09/17 08:22 Phenytoin 100 mg/ Sodium Chloride 57 ml @ 114 mls/hr [id number] PHENYTOIN IVPB 10/30/17 16:00 11/29/17 15:59 11/09/17 08:24 Potassium Chloride 100 ml @ 50 mls/hr Q2H IVPB 11/09/17 11:30 11/09/17 15:29 11/09/17 11:10 Gutierrez Sifuentes MD Nov 09, 2017 12:17
--- NOTE | 2017-11-09 14:19 | General Progress Note ---
Assessment/Plan Problem List: (1) Renal insufficiency ICD Codes: N28.9 - Disorder of kidney and ureter, unspecified SNOMED: 273519627, 051969374 (2) UTI (urinary tract infection) ICD Codes: N39.0 - Urinary tract infection, site not specified SNOMED: 56330872 (3) Seizure ICD Codes: R56.9 - Unspecified convulsions SNOMED: 42127939 (4) HTN (hypertension) ICD Codes: I10 - Essential (primary) hypertension SNOMED: 94144901 (5) Diabetes ICD Codes: E11.9 - Type 2 diabetes mellitus without complications SNOMED: 11974214 Status: unchanged Assessment/Plan vent abx detox neph f/u cbc bmp am Subjective Constitutional: Reports: weakness Allergies: Coded Allergies: ASPIRIN (Verified Allergy, Unknown, 10/30/17) PENICILLINS (Verified Allergy, Unknown, 10/30/17) UNABLE TO ASSESS (Unverified , 10/29/17) All Systems: reviewed and negative except above Subjective intubated sedated in icu ng Objective Last 24 Hour Vital Signs Date Time Temp Pulse Resp B/P (MAP) Pulse Ox O2 Delivery O2 Flow Rate FiO2 11/09/17 14:00 102 15 138/77 (97) 99 11/09/17 13:24 101 151/80 11/09/17 13:00 116 17 151/80 (103) 100 11/09/17 12:00 30 11/09/17 12:00 Mechanical Ventilator 11/09/17 12:00 99.0 102 14 140/76 (97) 100 99.0 11/09/17 12:00 97 11/09/17 11:00 97 13 133/75 (94) 99 11/09/17 10:40 98 12 30 11/09/17 10:00 98 13 132/74 (93) 99 11/09/17 09:00 98 12 140/80 (100) 100 11/09/17 08:35 94 24 30 11/09/17 08:00 99.1 92 13 100 99.1 11/09/17 08:00 96 11/09/17 08:00 Mechanical Ventilator 11/09/17 08:00 30 11/09/17 08:00 99.1 92 13 121/67 (85) 100 99.1 11/09/17 07:05 97 27 30 9/19/18 07:00 99 14 133/72 (92) 100 18 06:00 83 14 119/63 (81) 100 18 05:21 85 147/76 18 05:19 85 12 Mechanical Ventilator 30 18 05:18 85 12 30 18 05:00 83 14 119/62 (81) 100 18 04:00 97 18 04:00 30 11/09/17 04:00 Mechanical Ventilator 11/09/17 04:00 98.8 97 15 147/76 (99) 100 98.8 11/09/17 03:05 87 12 30 11/09/17 03:00 92 14 153/76 (101) 100 11/09/17 02:00 104 16 113/67 (82) 100 18 01:08 90 12 30 11/09/17 01:00 95 14 128/74 (92) 100 11/09/17 00:00 95 11/09/17 00:00 Mechanical Ventilator 11/09/17 00:00 98.4 101 15 142/88 (106) 100 98.4 18 23:00 84 14 108/62 (77) 100 18 22:50 87 12 30 18 22:02 95 125/71 18 22:00 93 12 131/68 (89) 100 18 21:26 95 12 30 18 21:00 100 14 125/71 (89) 98 18 20:00 99.0 100 15 158/77 (104) 100 99.0 18 20:00 100 1818 20:00 30 18 20:00 Mechanical Ventilator 18 19:29 102 15 30 18 19:00 96 14 173/74 (107) 98 1818 18:00 94 14 146/66 (92) 97 1818 17:00 93 13 137/79 (98) 99 18 16:43 95 16 30 18/18 16:00 Mechanical Ventilator 18 16:00 30 18 16:00 99.7 90 15 135/72 (93) 99 99.7 11/08/17 15:30 83 11/08/17 15:00 88 12 112/60 (77) 99 11/08/17 14:44 94 16 30 11/08/17 14:23 94 127/67 Intake and Output 11/08/17 11/09/17 19:00 07:00 Intake Total 854 ml 1012 ml Output Total 680 ml 680 ml Balance 174 ml 332 ml Free Water 150 ml IV Total 314 ml 157 ml Tube Feeding 540 ml 585 ml Other 120 ml Output Urine Total 680 ml 680 ml # Bowel Movements 3 4 Laboratory Tests 11/09/17 04:00: White Blood Count 12.7H, Red Blood Count 3.49L, Hemoglobin 10.5L, Hematocrit 32.1L, Mean Corpuscular Volume 92, Mean Corpuscular Hemoglobin 30.0, Mean Corpuscular Hemoglobin Concent 32.7, Red Cell Distribution Width 13.1, Platelet Count 433, Mean Platelet Volume 5.9L, Neutrophils (%) (Auto) 64.2, Lymphocytes ( %) (Auto) 27.1, Monocytes (%) (Auto) 7.2, Eosinophils (%) (Auto) 0.8, Basophils (%) (Auto) 0.8, Sodium Level 142, Potassium Level 3.1L, Chloride Level 107, Carbon Dioxide Level 32, Anion Gap 3L, Blood Urea Nitrogen 19H, Creatinine 0.7, Estimat Glomerular Filtration Rate > 60, Glucose Level 96, Calcium Level 9.0, Total Bilirubin 0.2, Aspartate Amino Transf (AST/SGOT) 62H, Alanine Aminotransferase (ALT/SGPT) 93H, Alkaline Phosphatase 95, Pro-B-Type Natriuretic Peptide 116, Total Protein 6.7, Albumin 2.4L, Globulin 4.3, Albumin/ Globulin Ratio 0.6L Height (Feet): 5 Height (Inches): 2.00 Weight (Pounds): 105 General Appearance: lethargic EENT: normal ENT inspection Neck: normal alignment Cardiovascular: normal peripheral pulses, normal rate, regular rhythm Respiratory/Chest: chest wall non-tender, lungs clear, normal breath sounds Abdomen: normal bowel sounds, non tender, soft Extremities: normal inspection Edema: no edema noted Arm (L), no edema noted Arm (R), no edema noted Leg (L), no edema noted Leg (R), no edema noted Pedal (L), no edema noted Pedal (R), no edema noted Generalized Neurologic: motor weakness Skin: normal pigmentation, warm/dry Josias Skinner DO Nov 09, 2017 14:19
--- NOTE | 2017-11-09 14:43 | GI Progress Note ---
Assessment/Plan Problems: (1) Diabetes ICD Codes: E11.9 - Type 2 diabetes mellitus without complications SNOMED: 47514416 (2) Cocaine abuse ICD Codes: F14.10 - Cocaine abuse, uncomplicated SNOMED: 96019193 (3) Transaminitis ICD Codes: R74.0 - Nonspecific elevation of levels of transaminase and lactic acid dehydrogenase [LDH] SNOMED: 679490454, 111188040 (4) Anemia ICD Codes: D64.9 - Anemia, unspecified SNOMED: 246243321 Status: not improved, unchanged Status Narrative Discussed with Dr. Sauceda. Assessment/Plan NGTFs fu labs supportive care peg if needed The patient was seen and examined at bedside and all new and available data was reviewed in the patients chart. I agree with the above findings, impression and plan. (Patient seen earlier today. Signature stamp does not reflect patient encounter time.). - Renaldo Sauceda MD Subjective Subjective limited Objective Last 24 Hour Vital Signs Date Time Temp Pulse Resp B/P (MAP) Pulse Ox O2 Delivery O2 Flow Rate FiO2 11/09/17 14:00 102 15 138/77 (97) 99 11/09/17 13:24 101 151/80 11/09/17 13:05 97 12 30 11/09/17 13:00 116 17 151/80 (103) 100 11/09/17 12:00 30 11/09/17 12:00 Mechanical Ventilator 11/09/17 12:00 99.0 102 14 140/76 (97) 100 99.0 11/09/17 12:00 97 11/09/17 11:00 97 13 133/75 (94) 99 11/09/17 10:40 98 12 30 11/09/17 10:00 98 13 132/74 (93) 99 11/09/17 09:00 98 12 140/80 (100) 100 11/09/17 08:35 94 24 30 11/09/17 08:00 99.1 92 13 100 99.1 11/09/17 08:00 96 11/09/17 08:00 Mechanical Ventilator 11/09/17 08:00 30 11/09/17 08:00 99.1 92 13 121/67 (85) 100 99.1 11/09/17 07:05 97 27 30 11/09/17 07:00 99 14 133/72 (92) 100 18 06:00 83 14 119/63 (81) 100 18 05:21 85 147/76 18 05:19 85 12 Mechanical Ventilator 30 18 05:18 85 12 30 18 05:00 83 14 119/62 (81) 100 18 04:00 97 18 04:00 30 11/09/17 04:00 Mechanical Ventilator 11/09/17 04:00 98.8 97 15 147/76 (99) 100 98.8 11/09/17 03:05 87 12 30 18 03:00 92 14 153/76 (101) 100 11/09/17 02:00 104 16 113/67 (82) 100 11/09/17 01:08 90 12 30 11/09/17 01:00 95 14 128/74 (92) 100 11/09/17 00:00 95 11/09/17 00:00 Mechanical Ventilator 11/09/17 00:00 98.4 101 15 142/88 (106) 100 98.4 18 23:00 84 14 108/62 (77) 100 18 22:50 87 12 30 18 22:02 95 125/71 1818 22:00 93 12 131/68 (89) 100 18 21:26 95 12 30 18 21:00 100 14 125/71 (89) 98 1818 20:00 99.0 100 15 158/77 (104) 100 99.0 18 20:00 100 1818 20:00 30 1818 20:00 Mechanical Ventilator 18 19:29 102 15 30 18/18 19:00 96 14 173/74 (107) 98 1818 18:00 94 14 146/66 (92) 97 1818 17:00 93 13 137/79 (98) 99 1818 16:43 95 16 30 18/18 16:00 Mechanical Ventilator 18 16:00 30 18 16:00 99.7 90 15 135/72 (93) 99 99.7 18 15:30 83 11/08/17 15:00 88 12 112/60 (77) 99 11/08/17 14:44 94 16 30 Intake and Output 11/08/17 11/09/17 19:00 07:00 Intake Total 854 ml 1012 ml Output Total 680 ml 680 ml Balance 174 ml 332 ml Free Water 150 ml IV Total 314 ml 157 ml Tube Feeding 540 ml 585 ml Other 120 ml Output Urine Total 680 ml 680 ml # Bowel Movements 3 4 Laboratory Tests Test 11/09/17 04:00 White Blood Count 12.7 K/UL (4.8-10.8) H Red Blood Count 3.49 M/UL (4.20-5.40) L Hemoglobin 10.5 G/DL (12.0-16.0) L Hematocrit 32.1 % (37.0-47.0) L Mean Corpuscular Volume 92 FL (80-99) Mean Corpuscular Hemoglobin 30.0 PG (27.0-31.0) Mean Corpuscular Hemoglobin Concent 32.7 G/DL (32.0-36.0) Red Cell Distribution Width 13.1 % (11.6-14.8) Platelet Count 433 K/UL (150-450) Mean Platelet Volume 5.9 FL (6.5-10.1) L Neutrophils (%) (Auto) 64.2 % (45.0-75.0) Lymphocytes (%) (Auto) 27.1 % (20.0-45.0) Monocytes (%) (Auto) 7.2 % (1.0-10.0) Eosinophils (%) (Auto) 0.8 % (0.0-3.0) Basophils (%) (Auto) 0.8 % (0.0-2.0) Sodium Level 142 MMOL/L (136-145) Potassium Level 3.1 MMOL/L (3.5-5.1) L Chloride Level 107 MMOL/L (98-107) Carbon Dioxide Level 32 MMOL/L (21-32) Anion Gap 3 mmol/L (5-15) L Blood Urea Nitrogen 19 mg/dL (7-18) H Creatinine 0.7 MG/DL (0.55-1.30) Estimat Glomerular Filtration Rate > 60 mL/min (>60) Glucose Level 96 MG/DL (74-106) Calcium Level 9.0 MG/DL (8.5-10.1) Total Bilirubin 0.2 MG/DL (0.2-1.0) Aspartate Amino Transf (AST/SGOT) 62 U/L (15-37) H Alanine Aminotransferase (ALT/SGPT) 93 U/L (12-78) H Alkaline Phosphatase 95 U/L (46-116) Pro-B-Type Natriuretic Peptide 116 pg/mL (0-125) Total Protein 6.7 G/DL (6.4-8.2) Albumin 2.4 G/DL (3.4-5.0) L Globulin 4.3 g/dL Albumin/Globulin Ratio 0.6 (1.0-2.7) L Height (Feet): 5 Height (Inches): 2.00 Weight (Pounds): 105 General Appearance: lethargic, thin Cardiovascular: normal rate Respiratory/Chest: normal breath sounds, no respiratory distress, other - intubated Abdominal Exam: normal bowel sounds, non tender, soft, other - NGT Risa Davenport NP Nov 09, 2017 14:43
--- NOTE | 2017-11-09 19:28 | Neurology Progress Note ---
Interim History Interim History Interim History Ms. Robertson continues to be comatose. She does however exhibit spontaneous eye opening and closing. She is still exhibiting decerebrate posturing. She has had no seizures or seizure like phenomena. She continues to be artificially ventilated. There has been no improvement in her neurologic state. Review of Systems Neuro Review of Systems Unable to obtain. Objective Physical Exam Last Vital Signs Date Time Temp Pulse Resp B/P (MAP) Pulse Ox O2 Delivery O2 Flow Rate FiO2 11/09/17 19:06 96 19 30 11/09/17 18:00 145/73 (97) 97 11/09/17 16:00 Mechanical Ventilator 11/09/17 16:00 99.1 99.1 Laboratory Tests Test 11/09/17 04:00 White Blood Count 12.7 K/UL (4.8-10.8) H Red Blood Count 3.49 M/UL (4.20-5.40) L Hemoglobin 10.5 G/DL (12.0-16.0) L Hematocrit 32.1 % (37.0-47.0) L Mean Corpuscular Volume 92 FL (80-99) Mean Corpuscular Hemoglobin 30.0 PG (27.0-31.0) Mean Corpuscular Hemoglobin Concent 32.7 G/DL (32.0-36.0) Red Cell Distribution Width 13.1 % (11.6-14.8) Platelet Count 433 K/UL (150-450) Mean Platelet Volume 5.9 FL (6.5-10.1) L Neutrophils (%) (Auto) 64.2 % (45.0-75.0) Lymphocytes (%) (Auto) 27.1 % (20.0-45.0) Monocytes (%) (Auto) 7.2 % (1.0-10.0) Eosinophils (%) (Auto) 0.8 % (0.0-3.0) Basophils (%) (Auto) 0.8 % (0.0-2.0) Sodium Level 142 MMOL/L (136-145) Potassium Level 3.1 MMOL/L (3.5-5.1) L Chloride Level 107 MMOL/L (98-107) Carbon Dioxide Level 32 MMOL/L (21-32) Anion Gap 3 mmol/L (5-15) L Blood Urea Nitrogen 19 mg/dL (7-18) H Creatinine 0.7 MG/DL (0.55-1.30) Estimat Glomerular Filtration Rate > 60 mL/min (>60) Glucose Level 96 MG/DL (74-106) Calcium Level 9.0 MG/DL (8.5-10.1) Total Bilirubin 0.2 MG/DL (0.2-1.0) Aspartate Amino Transf (AST/SGOT) 62 U/L (15-37) H Alanine Aminotransferase (ALT/SGPT) 93 U/L (12-78) H Alkaline Phosphatase 95 U/L (46-116) Pro-B-Type Natriuretic Peptide 116 pg/mL (0-125) Total Protein 6.7 G/DL (6.4-8.2) Albumin 2.4 G/DL (3.4-5.0) L Globulin 4.3 g/dL Albumin/Globulin Ratio 0.6 (1.0-2.7) L Neurologic Exam Objective PHYSICAL EXAMINATION: GENERAL: She is a well-developed, cachectic, lean, black lady, lying in an ICU bed, in no acute distress, connected to a ventilator via an orotracheal tube. HEAD: Normocephalic and atraumatic. EENT: Examination benign. NECK: No neck rigidity was observed. NEUROLOGIC EXAMINATION: MENTAL STATUS EXAMINATION: She was comatose and did not respond even to deep painful stimuli. She was decerebrating spontaneously. Further mental status testing was impossible. SPEECH: Could not be tested. LANGUAGE: Could not be tested. CRANIAL NERVE EXAMINATION: II: She did not blink to threat. III, IV & : The external ocular movements were present on oculocephalic maneuvers. The pupils were 3 mm in diameter and reactive sluggishly to light. V & VII: The corneal reflexes were present, but significantly diminished. VIII: She did not respond to sounds and had no nystagmus. IX & X: The gag reflex was present but delayed on manipulating the endotracheal tube. XI: The sternocleidomastoids and trapezii could not be tested. XII: Could not be tested. MOTOR SYSTEM: The tone was increased in all four extremities with severe spasticity. Examination of muscle mass revealed generalized muscle wasting. Examination of power was impossible to perform because even on applying deep painful stimuli, no movements were seen. SENSORY EXAMINATION: She did not respond even to deep pain. REFLEXES: 1+ and bilaterally symmetrical at the biceps, triceps, brachioradialis , and knees. 0 at both ankles. The plantar responses were extensor bilaterally. COORDINATION, STANCE & GAIT: Could not be tested. Impression/Recommendations Diagnostic Impression 1. Ms. Polly Robertson is a 57-year-old, right-handed, black lady, who does have a past history of polysubstance abuse with her recent drug of choice being cocaine, a seizure disorder, and chronic pain, who was found down in her bathroom at home with vomitus in her mouth. She then was noted to stop breathing and this progressed to cardiac failure. The paramedics were called in and she had to have advanced cardiac life support before she could be resuscitated. She was then transported to the [facility] emergency room and on the way here she was noted to have a generalized seizure. Since then, she has had multiple seizures, however, at this point in time, they are well controlled on the present regimen. 2. She continues to be in a comatose state. She does however exhibit spontaneous eye opening and closing. She is still exhibiting decerebrate posturing. She has had no seizures or seizure like phenomena. She continues to be artificially ventilated. There has been no improvement in her neurologic state. 3. On neurological examination, at this time, she is comatose and does not respond even to deep pain. She exhibits spontaneous decerebration. She does not demonstrate any focal or lateralizing findings. 4. The CT scan of the brain without contrast is benign for acute pathology. 5. Her latest laboratory data on my initial evaluation revealed that her WBC count was elevated to 17,600 with predominantly 79% being neutrophils and 15% being lymphocytes and monocytes. Her arterial blood gas revealed pCO2 low at 21.2, pO2 at 154, and pH of 7.49. Her chemistry panel revealed a creatinine elevated to 1.7. Her AST was elevated at 255, ALT elevated at 251, and alkaline phosphatase elevated at 142. Her albumin was low at 2.9. Her Urinalysis revealed 1+ leukocyte esterase, 20- 30 red blood cells, and 5-10 white blood cells per high-power field. The urine toxicology screen was positive for cocaine. 6. Her EEG done on 10/31/17 revealed a severe encephalopathy and bilateral frontal epileptogenic foci with inter-ictal discharges at times with a large field. 7. The patient's history, neurological examination, laboratory data and imaging studies are most compatible with seizures due to a hypoxic/ischemic cerebral insult and/or cocaine intoxication. 8. The prognosis for recovery of cerebral function is dismal. Recommendations 1. Continue present management. 2. Continue to treat the patient's infectious process vigorously. 3. Continue Dilantin 100 mg intravenously q.8 h. 4. Continue Keppra 1 G intravenously every 8 hours. 5. In light of her poor prognosis make decision regarding intensity of care. Denisse Lester M.D., M.S.P.Zackery. DENISSE LESTER Nov 09, 2017 19:28
[2017-11-09] MEDS: Dyna-Hex 2% Top Sol 2oz TOPIC SCH (20:30)
[2017-11-10] VITALS (24 sets, daily range): BP systolic 122–166; BP diastolic 63–89
[2017-11-10] MEDS: Phenytoin 100 MG in NS 55 ML IVPB SCH ×3 (00:40→15:55)
[2017-11-10] MEDS: levETIRAcetam 1,000mg/NS100ml 100 ML IVPB SCH ×3 (01:46→17:17)
[2017-11-10] MEDS: NovoLOG Insulin Flexpen SUBQ SCH ×4 (06:00→17:16)
[2017-11-10 06:03] LABS: BASOPHILS % (AUTO) 0.6 % (0.0-2.0); EOSINOPHILS % (AUTO) 0.5 % (0.0-3.0); HEMATOCRIT 31.6 % (37.0-47.0); MEAN CORPUSCULAR VOLUME 93 FL (80-99); NEUTROPHILS % (AUTO) 67.9 % (45.0-75.0); PLATELET COUNT 444 K/UL (150-450); RED BLOOD COUNT 3.41 M/UL (4.20-5.40); RED CELL DISTRIBUTION WIDTH 13.5 % (11.6-14.8); WHITE BLOOD COUNT 15.2 K/UL (4.8-10.8)
[2017-11-10 06:11] LABS: ALANINE AMINOTRANSFERASE 102 U/L (12-78); ALBUMIN 2.3 G/DL (3.4-5.0); ALBUMIN/GLOBULIN RATIO 0.6 (1.0-2.7); ALKALINE PHOSPHATASE 87 U/L (46-116); ANION GAP 4 mmol/L (5-15); ASPARTATE AMINO TRANSFERASE 69 U/L (15-37); BILIRUBIN,TOTAL 0.1 MG/DL (0.2-1.0); CALCIUM 8.9 MG/DL (8.5-10.1); CARBON DIOXIDE 31 MMOL/L (21-32); CHLORIDE 106 MMOL/L (98-107); CREATININE 0.7 MG/DL (0.55-1.30); PHOSPHORUS 2.9 MG/DL (2.5-4.9); POTASSIUM 3.3 MMOL/L (3.5-5.1); SODIUM 141 MMOL/L (136-145)
[2017-11-10] MEDS: dilTIAZem HCl 60mg tab NG SCH ×3 (06:13→21:41)
[2017-11-10] MEDS: metroNIDAZOLE 500mg tab GT SCH ×3 (06:13→21:41)
[2017-11-10 07:21] LABS: BLOOD UREA NITROGEN 20 mg/dL (7-18)
[2017-11-10] MEDS: Hydrocortisone 100mg Inj IV SCH ×2 (08:43→17:17)
[2017-11-10] MEDS: Pantoprazole Inj IVP SCH (08:43)
[2017-11-10] MEDS: Heparin 5000 units/ml inj SUBQ SCH ×2 (08:45→20:09)
--- NOTE | 2017-11-10 09:48 | Infectious Diseases Prog Note ---
Assessment/Plan Assessment/Plan 57 yo female who presented to the ED on 10/30/17 after pulmonary arrest. Sepsis - Probable Asp PNA On Abx 10/30 Sputum Cultures - Predominantly NF - +1 Steno Will hold off Tx of Steno as patient improving 10/31 Urine Cx - NGTD Leukocytosis - WBCs 16 after seizure No Fevers Seizures - Had Seizure on route to ED 10/30/17 and in the ICU as well Drug abuse - Pos for cocaine Arthritis Chronic pain. P: - WBCs increased will consider reculturing if continue to raise - Levofloxacin #07/31 - To cover Stenotrophomonas as she had new fevers - 11/04 Ceftriaxone #3 - Continue Flagyl #11/30 for asp PNA - 10/31 Vancomycin #1 - 10/31 Aztreonam - 10/30 SP Ceftriaxone - Monitor CBC and Temps - Vent management per pulm - Poor prognosis We will continue to follow the patient during this hospitalization. Subjective Allergies: Coded Allergies: ASPIRIN (Verified Allergy, Unknown, 10/30/17) PENICILLINS (Verified Allergy, Unknown, 10/30/17) Subjective Afebrile On 30% FiO2 No Clinical change in mental status Objective Vital Signs Last 24 Hour Vital Signs Date Time Temp Pulse Resp B/P (MAP) Pulse Ox O2 Delivery O2 Flow Rate FiO2 11/10/17 09:11 88 12 30 11/10/17 07:29 86 14 30 11/10/17 07:00 93 14 161/89 (113) 100 11/10/17 06:13 83 145/71 11/10/17 06:00 82 12 145/71 (95) 99 11/10/17 05:28 80 14 30 11/10/17 05:02 160/89 11/10/17 05:00 89 15 160/87 (111) 100 11/10/17 04:00 Mechanical Ventilator 11/10/17 04:00 94 11/10/17 04:00 30 11/10/17 04:00 98.6 89 15 166/77 (106) 100 98.6 11/10/17 03:00 87 15 148/88 (108) 100 11/10/17 02:43 95 14 30 11/10/17 02:00 87 15 147/88 (107) 100 11/10/17 01:33 97 16 30 11/10/17 01:00 92 15 148/76 (100) 100 18 00:00 30 2018 00:00 Mechanical Ventilator 11/10/17 00:00 64 15 148/76 (100) 100 18 00:00 94 18 23:00 93 15 93/65 (74) 99 18 22:55 95 16 30 19/18 22:05 82 140/65 18 22:00 93 15 140/65 (90) 99 18 21:09 93 16 30 18 21:00 97 16 141/66 (91) 98 18 20:00 Mechanical Ventilator 11/09/17 20:00 30 11/09/17 20:00 99.1 97 17 140/69 (92) 98 99.1 18 20:00 94 18 19:06 96 19 30 18 19:00 100 17 151/77 (101) 97 18 18:00 95 16 145/73 (97) 97 18 17:05 101 19 30 18 17:00 114 24 161/74 (103) 100 18 16:00 Mechanical Ventilator 11/09/17 16:00 93 18 16:00 30 18 16:00 99.1 94 13 135/73 (93) 99 99.1 18 15:00 96 13 135/78 (97) 99 18 14:56 96 14 30 18 14:00 102 15 138/77 (97) 99 18 13:24 101 151/80 18 13:05 97 12 30 18 13:00 116 17 151/80 (103) 100 18 12:00 30 18 12:00 Mechanical Ventilator 11/09/17 12:00 99.0 102 14 140/76 (97) 100 99.0 18 12:00 97 18 11:00 97 13 133/75 (94) 99 11/09/18 10:40 98 12 30 18 10:00 98 13 132/74 (93) 99 Height (Feet): 5 Height (Inches): 2.00 Weight (Pounds): 105 Objective Gen: NAD, On Vent 30% O2 HEENT: NCAT, MMM, eye open at times not tracking LUNGS: Mechanical breath sounds, No Wheezing CARDS: RRR, S1, S2 ABD: Soft, NT, ND, + BS NEURO: Pupils constricted B/L and sluggish, Not responsive Laboratory Tests Test 11/10/17 03:30 White Blood Count 15.2 K/UL (4.8-10.8) H Red Blood Count 3.41 M/UL (4.20-5.40) L Hemoglobin 10.0 G/DL (12.0-16.0) L Hematocrit 31.6 % (37.0-47.0) L Mean Corpuscular Volume 93 FL (80-99) Mean Corpuscular Hemoglobin 29.4 PG (27.0-31.0) Mean Corpuscular Hemoglobin Concent 31.7 G/DL (32.0-36.0) L Red Cell Distribution Width 13.5 % (11.6-14.8) Platelet Count 444 K/UL (150-450) Mean Platelet Volume 5.3 FL (6.5-10.1) L Neutrophils (%) (Auto) 67.9 % (45.0-75.0) Lymphocytes (%) (Auto) 23.0 % (20.0-45.0) Monocytes (%) (Auto) 8.0 % (1.0-10.0) Eosinophils (%) (Auto) 0.5 % (0.0-3.0) Basophils (%) (Auto) 0.6 % (0.0-2.0) Sodium Level 141 MMOL/L (136-145) Potassium Level 3.3 MMOL/L (3.5-5.1) L Chloride Level 106 MMOL/L (98-107) Carbon Dioxide Level 31 MMOL/L (21-32) Anion Gap 4 mmol/L (5-15) L Blood Urea Nitrogen 20 mg/dL (7-18) H Creatinine 0.7 MG/DL (0.55-1.30) Estimat Glomerular Filtration Rate > 60 mL/min (>60) Glucose Level 97 MG/DL (74-106) Calcium Level 8.9 MG/DL (8.5-10.1) Phosphorus Level 2.9 MG/DL (2.5-4.9) Magnesium Level 1.9 MG/DL (1.8-2.4) Total Bilirubin 0.1 MG/DL (0.2-1.0) L Aspartate Amino Transf (AST/SGOT) 69 U/L (15-37) H Alanine Aminotransferase (ALT/SGPT) 102 U/L (12-78) H Alkaline Phosphatase 87 U/L (46-116) Total Protein 6.3 G/DL (6.4-8.2) L Albumin 2.3 G/DL (3.4-5.0) L Globulin 4.0 g/dL Albumin/Globulin Ratio 0.6 (1.0-2.7) L Current Medications Medications (Trade) Dose Ordered Sig/Yung Route PRN Reason Start Time Stop Time Status Last Admin Dose Admin Acetaminophen (Tylenol) 650 mg Q4H PRN RECTAL Prn Headache/Temp > 101 10/30/17 16:45 11/29/17 16:44 10/31/17 21:24 Acetaminophen (Tylenol) 650 mg Q6H PRN NG Mild Pain/Temp > 100.5 11/03/17 22:00 12/03/17 21:59 11/05/17 19:09 Chlorhexidine Gluconate (Sunita-Hex 2%) 1 applic DAILY@2000 TOPIC 10/30/17 20:00 11/29/17 19:59 11/09/17 20:30 Clonidine HCl (Catapres Tab) 0.1 mg Q4H PRN ORAL for SBP >160 11/01/17 13:00 12/01/17 12:59 11/10/17 05:02 Dextrose (Dextrose 50%) 25 ml STAT PRN IV Hypoglycemia 11/03/17 18:00 12/03/17 17:59 Dextrose (Dextrose 50%) 50 ml STAT PRN IV Hypoglycemia 11/03/17 18:00 12/03/17 17:59 Diltiazem HCl (Cardizem) 60 mg EVERY 8 HOURS NG 11/05/17 22:00 12/05/17 21:59 11/10/17 06:13 Haloperidol Lactate 5 mg/ Dextrose 56 ml @ 112 mls/hr Q1H PRN IVPB Agitation 11/02/17 10:00 12/02/17 09:59 11/02/17 12:53 Heparin Sodium (Porcine) (Heparin 5000 units/ml) 5,000 units EVERY 12 HOURS SUBQ 10/30/17 09:00 11/29/17 08:59 11/10/17 08:45 Hydrocortisone (Solu-CORTEF) 25 mg BID IV 11/08/17 09:00 11/30/17 18:29 11/10/17 08:43 Insulin Aspart (NovoLOG) Q6HR SUBQ 11/08/17 12:00 12/03/17 19:59 11/09/17 11:11 Levetiracetam 100 ml @ 400 mls/hr Q8H IVPB 10/30/17 17:00 11/29/17 16:59 11/10/17 08:44 Levofloxacin (Levaquin) 750 mg Q48H GT 11/09/17 09:00 11/14/17 23:00 11/09/17 08:23 Lorazepam (Ativan 2mg/ml 1ml) 2 mg Q2H PRN IV For Anxiety 11/08/17 08:00 11/15/17 07:59 11/08/17 19:37 Metronidazole (Flagyl) 500 mg Q8HR GT 11/08/17 11:30 11/10/17 23:00 11/10/17 06:13 Nitroglycerin (Ntg) 0.4 mg Q5M PRN SL Prn Chest Pain 10/30/17 08:00 11/29/17 07:59 Ondansetron HCl (Zofran) 4 mg Q6H PRN IVP Nausea & Vomiting 10/30/17 08:00 11/29/17 07:59 Pantoprazole (Protonix) 40 mg DAILY IVP 11/02/17 09:00 12/02/17 08:59 11/10/17 08:43 Phenytoin 100 mg/ Sodium Chloride 57 ml @ 114 mls/hr [id number] PHENYTOIN IVPB 10/30/17 16:00 11/29/17 15:59 11/10/17 08:44 Gutierrez Sifuentes MD Nov 10, 2017 09:48
--- NOTE | 2017-11-10 09:49 | Pulmonolgy Critical Care Note ---
Critical Care - Asmt/Plan Problems: (1) Respiratory arrest (2) Aspiration pneumonia (3) Seizure (4) Pneumothorax on right (5) Diabetes (6) Cocaine abuse Respiratory: monitor respiratory rate, adjust FIO2, CXR Cardiac: continue to monitor HR/BP Renal: F/U I&O Infectious Disease: check cultures Gastrointestinal: continue feedings/current rate Endocrine: monitor blood sugar, check HgA1C Neurologic: PRN Ativan Prophylaxis: Protonix, Heparin Notes Reviewed: project inspector, cardio Discussed with: nurses, consultants, case hardenerpaper sales manager - Objective Last 24 Hour Vital Signs Date Time Temp Pulse Resp B/P (MAP) Pulse Ox O2 Delivery O2 Flow Rate FiO2 11/10/17 09:11 88 12 30 11/10/17 07:29 86 14 30 11/10/17 07:00 93 14 161/89 (113) 100 11/10/17 06:13 83 145/71 11/10/17 06:00 82 12 145/71 (95) 99 11/10/17 05:28 80 14 30 11/10/17 05:02 160/89 11/10/17 05:00 89 15 160/87 (111) 100 11/10/17 04:00 Mechanical Ventilator 11/10/17 04:00 94 11/10/17 04:00 30 11/10/17 04:00 98.6 89 15 166/77 (106) 100 98.6 11/10/17 03:00 87 15 148/88 (108) 100 11/10/17 02:43 95 14 30 11/10/17 02:00 87 15 147/88 (107) 100 11/10/17 01:33 97 16 30 11/10/17 01:00 92 15 148/76 (100) 100 11/10/17 00:00 30 11/10/17 00:00 Mechanical Ventilator 11/10/17 00:00 64 15 148/76 (100) 100 11/10/17 00:00 94 11/09/17 23:00 93 15 93/65 (74) 99 11/09/17 22:55 95 16 30 11/09/17 22:05 82 140/65 11/09/17 22:00 93 15 140/65 (90) 99 11/09/17 21:09 93 16 30 11/09/17 21:00 97 16 141/66 (91) 98 11/09/17 20:00 Mechanical Ventilator 11/09/17 20:00 30 11/09/17 20:00 99.1 97 17 140/69 (92) 98 99.1 11/09/17 20:00 94 11/09/17 19:06 96 19 30 11/09/17 19:00 100 17 151/77 (101) 97 11/09/17 18:00 95 16 145/73 (97) 97 11/09/17 17:05 101 19 30 11/09/17 17:00 114 24 161/74 (103) 100 11/09/17 16:00 Mechanical Ventilator 11/09/17 16:00 93 11/09/17 16:00 30 11/09/17 16:00 99.1 94 13 135/73 (93) 99 99.1 11/09/17 15:00 96 13 135/78 (97) 99 11/09/17 14:56 96 14 30 11/09/17 14:00 102 15 138/77 (97) 99 11/09/17 13:24 101 151/80 11/09/17 13:05 97 12 30 11/09/17 13:00 116 17 151/80 (103) 100 11/09/17 12:00 30 11/09/17 12:00 Mechanical Ventilator 11/09/17 12:00 99.0 102 14 140/76 (97) 100 99.0 11/09/17 12:00 97 11/09/17 11:00 97 13 133/75 (94) 99 11/09/17 10:40 98 12 30 11/09/17 10:00 98 13 132/74 (93) 99 Status: awake Condition: critical Neck: full ROM Lungs: chest wall tender Heart: HR/BP stable, HR/BP unstable Abdomen: soft, non-tender, feeding tube Extremities: edema Accucheck: 104 Critical Care - Subjective ROS Limited/Unobtainable: No Condition: critical EKG Rhythm: Sinus Rhythm FI02: 30 Vent Support Breath Rate: 10 Vent Support Mode: IMV/SIMV Vent Tidal Volume: 500 Sputum Amount: Small PEEP: 0.0 PIP: 24 Tube Feeding Amount: 45 I&O: Intake and Output 11/09/17 11/10/17 19:00 07:00 Intake Total 1054 ml 697 ml Output Total 350 ml 859 ml Balance 704 ml -162 ml IV Total 514 ml 157 ml Tube Feeding 540 ml 540 ml Output Urine Total 350 ml 859 ml # Bowel Movements 6 1 ET-Tube: 7.5 ET Position: 23 Labs: Laboratory Tests Test 11/10/17 03:30 White Blood Count 15.2 K/UL (4.8-10.8) H Red Blood Count 3.41 M/UL (4.20-5.40) L Hemoglobin 10.0 G/DL (12.0-16.0) L Hematocrit 31.6 % (37.0-47.0) L Mean Corpuscular Volume 93 FL (80-99) Mean Corpuscular Hemoglobin 29.4 PG (27.0-31.0) Mean Corpuscular Hemoglobin Concent 31.7 G/DL (32.0-36.0) L Red Cell Distribution Width 13.5 % (11.6-14.8) Platelet Count 444 K/UL (150-450) Mean Platelet Volume 5.3 FL (6.5-10.1) L Neutrophils (%) (Auto) 67.9 % (45.0-75.0) Lymphocytes (%) (Auto) 23.0 % (20.0-45.0) Monocytes (%) (Auto) 8.0 % (1.0-10.0) Eosinophils (%) (Auto) 0.5 % (0.0-3.0) Basophils (%) (Auto) 0.6 % (0.0-2.0) Sodium Level 141 MMOL/L (136-145) Potassium Level 3.3 MMOL/L (3.5-5.1) L Chloride Level 106 MMOL/L (98-107) Carbon Dioxide Level 31 MMOL/L (21-32) Anion Gap 4 mmol/L (5-15) L Blood Urea Nitrogen 20 mg/dL (7-18) H Creatinine 0.7 MG/DL (0.55-1.30) Estimat Glomerular Filtration Rate > 60 mL/min (>60) Glucose Level 97 MG/DL (74-106) Calcium Level 8.9 MG/DL (8.5-10.1) Phosphorus Level 2.9 MG/DL (2.5-4.9) Magnesium Level 1.9 MG/DL (1.8-2.4) Total Bilirubin 0.1 MG/DL (0.2-1.0) L Aspartate Amino Transf (AST/SGOT) 69 U/L (15-37) H Alanine Aminotransferase (ALT/SGPT) 102 U/L (12-78) H Alkaline Phosphatase 87 U/L (46-116) Total Protein 6.3 G/DL (6.4-8.2) L Albumin 2.3 G/DL (3.4-5.0) L Globulin 4.0 g/dL Albumin/Globulin Ratio 0.6 (1.0-2.7) L Evan Purcell MD Nov 10, 2017 09:49
--- NOTE | 2017-11-10 11:08 | GI Progress Note ---
Assessment/Plan Problems: (1) Diabetes ICD Codes: E11.9 - Type 2 diabetes mellitus without complications SNOMED: 91582942 (2) Cocaine abuse ICD Codes: F14.10 - Cocaine abuse, uncomplicated SNOMED: 70379628 (3) Transaminitis ICD Codes: R74.0 - Nonspecific elevation of levels of transaminase and lactic acid dehydrogenase [LDH] SNOMED: 501878849, 462869432 (4) Anemia ICD Codes: D64.9 - Anemia, unspecified SNOMED: 792290763 Status: stable Status Narrative Discussed with Dr. Sauceda. Assessment/Plan NGTFs fu labs supportive care peg if needed The patient was seen and examined at bedside and all new and available data was reviewed in the patients chart. I agree with the above findings, impression and plan. (Patient seen earlier today. Signature stamp does not reflect patient encounter time.). - Renaldo Sauceda MD Subjective Subjective limited Objective Last 24 Hour Vital Signs Date Time Temp Pulse Resp B/P (MAP) Pulse Ox O2 Delivery O2 Flow Rate FiO2 11/10/17 11:00 92 19 133/72 (92) 100 11/10/17 10:00 93 16 136/74 (94) 100 11/10/17 09:11 88 12 30 11/10/17 09:00 30 11/10/17 09:00 93 13 132/83 (99) 100 11/10/17 08:00 99 11/10/17 08:00 92 14 140/71 (94) 100 11/10/17 07:29 86 14 30 11/10/17 07:00 93 14 161/89 (113) 100 11/10/17 06:13 83 145/71 11/10/17 06:00 82 12 145/71 (95) 99 11/10/17 05:28 80 14 30 11/10/17 05:02 160/89 11/10/17 05:00 89 15 160/87 (111) 100 11/10/17 04:00 Mechanical Ventilator 11/10/17 04:00 94 11/10/17 04:00 30 11/10/17 04:00 98.6 89 15 166/77 (106) 100 98.6 11/10/17 03:00 87 15 148/88 (108) 100 11/10/17 02:43 95 14 30 11/10/17 02:00 87 15 147/88 (107) 100 18 01:33 97 16 30 11/10/17 01:00 92 15 148/76 (100) 100 11/10/17 00:00 30 11/10/17 00:00 Mechanical Ventilator 11/10/17 00:00 64 15 148/76 (100) 100 11/10/17 00:00 94 11/09/17 23:00 93 15 93/65 (74) 99 11/09/17 22:55 95 16 30 18 22:05 82 140/65 11/09/17 22:00 93 15 140/65 (90) 99 11/09/17 21:09 93 16 30 11/09/17 21:00 97 16 141/66 (91) 98 11/09/17 20:00 Mechanical Ventilator 11/09/17 20:00 30 11/09/17 20:00 99.1 97 17 140/69 (92) 98 99.1 11/09/17 20:00 94 11/09/17 19:06 96 19 30 11/09/17 19:00 100 17 151/77 (101) 97 11/09/17 18:00 95 16 145/73 (97) 97 11/09/17 17:05 101 19 30 11/09/17 17:00 114 24 161/74 (103) 100 11/09/17 16:00 Mechanical Ventilator 11/09/17 16:00 93 11/09/17 16:00 30 11/09/17 16:00 99.1 94 13 135/73 (93) 99 99.1 11/09/17 15:00 96 13 135/78 (97) 99 18 14:56 96 14 30 11/09/17 14:00 102 15 138/77 (97) 99 18 13:24 101 151/80 18 13:05 97 12 30 11/09/17 13:00 116 17 151/80 (103) 100 18 12:00 30 11/09/17 12:00 Mechanical Ventilator 11/09/17 12:00 99.0 102 14 140/76 (97) 100 99.0 11/09/17 12:00 97 Intake and Output 11/09/17 11/10/17 19:00 07:00 Intake Total 1054 ml 697 ml Output Total 350 ml 859 ml Balance 704 ml -162 ml IV Total 514 ml 157 ml Tube Feeding 540 ml 540 ml Output Urine Total 350 ml 859 ml # Bowel Movements 6 1 Laboratory Tests Test 11/10/17 03:30 White Blood Count 15.2 K/UL (4.8-10.8) H Red Blood Count 3.41 M/UL (4.20-5.40) L Hemoglobin 10.0 G/DL (12.0-16.0) L Hematocrit 31.6 % (37.0-47.0) L Mean Corpuscular Volume 93 FL (80-99) Mean Corpuscular Hemoglobin 29.4 PG (27.0-31.0) Mean Corpuscular Hemoglobin Concent 31.7 G/DL (32.0-36.0) L Red Cell Distribution Width 13.5 % (11.6-14.8) Platelet Count 444 K/UL (150-450) Mean Platelet Volume 5.3 FL (6.5-10.1) L Neutrophils (%) (Auto) 67.9 % (45.0-75.0) Lymphocytes (%) (Auto) 23.0 % (20.0-45.0) Monocytes (%) (Auto) 8.0 % (1.0-10.0) Eosinophils (%) (Auto) 0.5 % (0.0-3.0) Basophils (%) (Auto) 0.6 % (0.0-2.0) Sodium Level 141 MMOL/L (136-145) Potassium Level 3.3 MMOL/L (3.5-5.1) L Chloride Level 106 MMOL/L (98-107) Carbon Dioxide Level 31 MMOL/L (21-32) Anion Gap 4 mmol/L (5-15) L Blood Urea Nitrogen 20 mg/dL (7-18) H Creatinine 0.7 MG/DL (0.55-1.30) Estimat Glomerular Filtration Rate > 60 mL/min (>60) Glucose Level 97 MG/DL (74-106) Calcium Level 8.9 MG/DL (8.5-10.1) Phosphorus Level 2.9 MG/DL (2.5-4.9) Magnesium Level 1.9 MG/DL (1.8-2.4) Total Bilirubin 0.1 MG/DL (0.2-1.0) L Aspartate Amino Transf (AST/SGOT) 69 U/L (15-37) H Alanine Aminotransferase (ALT/SGPT) 102 U/L (12-78) H Alkaline Phosphatase 87 U/L (46-116) Total Protein 6.3 G/DL (6.4-8.2) L Albumin 2.3 G/DL (3.4-5.0) L Globulin 4.0 g/dL Albumin/Globulin Ratio 0.6 (1.0-2.7) L Height (Feet): 5 Height (Inches): 2.00 Weight (Pounds): 105 General Appearance: no apparent distress, cachetic Cardiovascular: normal rate Respiratory/Chest: normal breath sounds, no respiratory distress, other - intubation Abdominal Exam: normal bowel sounds, non tender, soft, other - NGT Extremities: non-tender Risa Davenport NP Nov 10, 2017 11:08
--- NOTE | 2017-11-10 15:36 | General Progress Note ---
Assessment/Plan Problem List: (1) Renal insufficiency ICD Codes: N28.9 - Disorder of kidney and ureter, unspecified SNOMED: 182948603, 235077136 (2) UTI (urinary tract infection) ICD Codes: N39.0 - Urinary tract infection, site not specified SNOMED: 97616869 (3) Seizure ICD Codes: R56.9 - Unspecified convulsions SNOMED: 82118937 (4) HTN (hypertension) ICD Codes: I10 - Essential (primary) hypertension SNOMED: 31239754 (5) Diabetes ICD Codes: E11.9 - Type 2 diabetes mellitus without complications SNOMED: 65985977 Status: unchanged Assessment/Plan vent abx detox neph f/u cbc bmp am Subjective Constitutional: Reports: weakness Allergies: Coded Allergies: ASPIRIN (Verified Allergy, Unknown, 10/30/17) PENICILLINS (Verified Allergy, Unknown, 10/30/17) All Systems: reviewed and negative except above Subjective intubated sedated in icu ng Objective Last 24 Hour Vital Signs Date Time Temp Pulse Resp B/P (MAP) Pulse Ox O2 Delivery O2 Flow Rate FiO2 11/10/17 15:02 95 137/78 11/10/17 15:00 96 20 137/78 (97) 96 11/10/17 14:56 102 21 30 11/10/17 14:00 103 24 127/77 (94) 100 11/10/17 13:00 91 19 132/78 (96) 100 11/10/17 13:00 95 11/10/17 12:45 93 21 30 11/10/17 12:00 Mechanical Ventilator 11/10/17 12:00 98.8 103 23 131/69 (89) 97 98.8 11/10/17 12:00 30 11/10/17 11:00 92 19 133/72 (92) 100 11/10/17 10:40 102 22 30 11/10/17 10:00 93 16 136/74 (94) 100 11/10/17 09:11 88 12 30 11/10/17 09:00 30 11/10/17 09:00 93 13 132/83 (99) 100 11/10/17 08:00 99 11/10/17 08:00 92 14 140/71 (94) 100 11/10/17 08:00 Mechanical Ventilator 11/10/17 07:29 86 14 30 11/10/17 07:00 93 14 161/89 (113) 100 18 06:13 83 145/71 18 06:00 82 12 145/71 (95) 99 18 05:28 80 14 30 18 05:02 160/89 11/10/17 05:00 89 15 160/87 (111) 100 11/10/17 04:00 Mechanical Ventilator 11/10/17 04:00 94 11/10/17 04:00 30 11/10/17 04:00 98.6 89 15 166/77 (106) 100 98.6 11/10/17 03:00 87 15 148/88 (108) 100 11/10/17 02:43 95 14 30 11/10/17 02:00 87 15 147/88 (107) 100 11/10/17 01:33 97 16 30 11/10/17 01:00 92 15 148/76 (100) 100 11/10/17 00:00 30 11/10/17 00:00 Mechanical Ventilator 11/10/17 00:00 64 15 148/76 (100) 100 11/10/17 00:00 94 11/09/17 23:00 93 15 93/65 (74) 99 18 22:55 95 16 30 18 22:05 82 140/65 18 22:00 93 15 140/65 (90) 99 18 21:09 93 16 30 18 21:00 97 16 141/66 (91) 98 18 20:00 Mechanical Ventilator 11/09/17 20:00 30 18 20:00 99.1 97 17 140/69 (92) 98 99.1 18 20:00 94 19/18 19:06 96 19 30 1918 19:00 100 17 151/77 (101) 97 18 18:00 95 16 145/73 (97) 97 19/18 17:05 101 19 30 18 17:00 114 24 161/74 (103) 100 18 16:00 Mechanical Ventilator 11/09/17 16:00 93 18 16:00 30 18 16:00 99.1 94 13 135/73 (93) 99 99.1 Intake and Output 11/09/17 11/10/17 19:00 07:00 Intake Total 1054 ml 697 ml Output Total 350 ml 859 ml Balance 704 ml -162 ml IV Total 514 ml 157 ml Tube Feeding 540 ml 540 ml Output Urine Total 350 ml 859 ml # Bowel Movements 6 1 Laboratory Tests 11/10/17 03:30: White Blood Count 15.2H, Red Blood Count 3.41L, Hemoglobin 10.0L, Hematocrit 31.6L, Mean Corpuscular Volume 93, Mean Corpuscular Hemoglobin 29.4, Mean Corpuscular Hemoglobin Concent 31.7L, Red Cell Distribution Width 13.5, Platelet Count 444, Mean Platelet Volume 5.3L, Neutrophils (%) (Auto) 67.9, Lymphocytes (%) (Auto) 23.0, Monocytes (%) (Auto) 8.0, Eosinophils (%) (Auto) 0.5, Basophils (%) (Auto) 0.6, Sodium Level 141, Potassium Level 3.3L, Chloride Level 106, Carbon Dioxide Level 31, Anion Gap 4L, Blood Urea Nitrogen 20H, Creatinine 0.7, Estimat Glomerular Filtration Rate > 60, Glucose Level 97, Calcium Level 8.9, Phosphorus Level 2.9, Magnesium Level 1.9, Total Bilirubin 0.1L, Aspartate Amino Transf (AST/SGOT) 69H, Alanine Aminotransferase (ALT/SGPT ) 102H, Alkaline Phosphatase 87, Total Protein 6.3L, Albumin 2.3L, Globulin 4.0 , Albumin/Globulin Ratio 0.6L Height (Feet): 5 Height (Inches): 2.00 Weight (Pounds): 105 General Appearance: lethargic EENT: normal ENT inspection Neck: normal alignment Cardiovascular: normal peripheral pulses, normal rate, regular rhythm Respiratory/Chest: chest wall non-tender, lungs clear, normal breath sounds Abdomen: normal bowel sounds, non tender, soft Extremities: normal inspection Edema: no edema noted Arm (L), no edema noted Arm (R), no edema noted Leg (L), no edema noted Leg (R), no edema noted Pedal (L), no edema noted Pedal (R), no edema noted Generalized Neurologic: motor weakness Skin: normal pigmentation, warm/dry Josias Skinner DO Nov 10, 2017 15:36
--- NOTE | 2017-11-10 18:44 | Neurology Progress Note ---
Interim History Interim History Interim History Ms. Robertson continues to be comatose. She does however exhibit spontaneous eye opening and closing. She is still exhibiting decerebrate posturing. She has had no seizures or seizure like phenomena. She continues to be artificially ventilated. There has been no improvement in her neurologic state. Review of Systems Neuro Review of Systems Unable to obtain. Objective Physical Exam Last Vital Signs Date Time Temp Pulse Resp B/P (MAP) Pulse Ox O2 Delivery O2 Flow Rate FiO2 11/10/17 17:00 95 20 122/70 (87) 96 11/10/17 16:58 30 11/10/17 16:00 98.8 98.8 11/10/17 16:00 Mechanical Ventilator Laboratory Tests Test 11/10/17 03:30 White Blood Count 15.2 K/UL (4.8-10.8) H Red Blood Count 3.41 M/UL (4.20-5.40) L Hemoglobin 10.0 G/DL (12.0-16.0) L Hematocrit 31.6 % (37.0-47.0) L Mean Corpuscular Volume 93 FL (80-99) Mean Corpuscular Hemoglobin 29.4 PG (27.0-31.0) Mean Corpuscular Hemoglobin Concent 31.7 G/DL (32.0-36.0) L Red Cell Distribution Width 13.5 % (11.6-14.8) Platelet Count 444 K/UL (150-450) Mean Platelet Volume 5.3 FL (6.5-10.1) L Neutrophils (%) (Auto) 67.9 % (45.0-75.0) Lymphocytes (%) (Auto) 23.0 % (20.0-45.0) Monocytes (%) (Auto) 8.0 % (1.0-10.0) Eosinophils (%) (Auto) 0.5 % (0.0-3.0) Basophils (%) (Auto) 0.6 % (0.0-2.0) Sodium Level 141 MMOL/L (136-145) Potassium Level 3.3 MMOL/L (3.5-5.1) L Chloride Level 106 MMOL/L (98-107) Carbon Dioxide Level 31 MMOL/L (21-32) Anion Gap 4 mmol/L (5-15) L Blood Urea Nitrogen 20 mg/dL (7-18) H Creatinine 0.7 MG/DL (0.55-1.30) Estimat Glomerular Filtration Rate > 60 mL/min (>60) Glucose Level 97 MG/DL (74-106) Calcium Level 8.9 MG/DL (8.5-10.1) Phosphorus Level 2.9 MG/DL (2.5-4.9) Magnesium Level 1.9 MG/DL (1.8-2.4) Total Bilirubin 0.1 MG/DL (0.2-1.0) L Aspartate Amino Transf (AST/SGOT) 69 U/L (15-37) H Alanine Aminotransferase (ALT/SGPT) 102 U/L (12-78) H Alkaline Phosphatase 87 U/L (46-116) Total Protein 6.3 G/DL (6.4-8.2) L Albumin 2.3 G/DL (3.4-5.0) L Globulin 4.0 g/dL Albumin/Globulin Ratio 0.6 (1.0-2.7) L Neurologic Exam Objective PHYSICAL EXAMINATION: GENERAL: She is a well-developed, cachectic, lean, black lady, lying in an ICU bed, in no acute distress, connected to a ventilator via an orotracheal tube. HEAD: Normocephalic and atraumatic. EENT: Examination benign. NECK: No neck rigidity was observed. NEUROLOGIC EXAMINATION: MENTAL STATUS EXAMINATION: She was comatose and did not respond even to deep painful stimuli. She was decerebrating spontaneously. Further mental status testing was impossible. SPEECH: Could not be tested. LANGUAGE: Could not be tested. CRANIAL NERVE EXAMINATION: II: She did not blink to threat. III, IV & : The external ocular movements were present on oculocephalic maneuvers. The pupils were 3 mm in diameter and reactive sluggishly to light. V & VII: The corneal reflexes were present, but significantly diminished. VIII: She did not respond to sounds and had no nystagmus. IX & X: The gag reflex was present but delayed on manipulating the endotracheal tube. XI: The sternocleidomastoids and trapezii could not be tested. XII: Could not be tested. MOTOR SYSTEM: The tone was increased in all four extremities with severe spasticity. Examination of muscle mass revealed generalized muscle wasting. Examination of power was impossible to perform because even on applying deep painful stimuli, no movements were seen. SENSORY EXAMINATION: She did not respond even to deep pain. REFLEXES: 1+ and bilaterally symmetrical at the biceps, triceps, brachioradialis , and knees. 0 at both ankles. The plantar responses were extensor bilaterally. COORDINATION, STANCE & GAIT: Could not be tested. Impression/Recommendations Diagnostic Impression 1. Ms. Polly Robertson is a 57-year-old, right-handed, black lady, who does have a past history of polysubstance abuse with her recent drug of choice being cocaine, a seizure disorder, and chronic pain, who was found down in her bathroom at home with vomitus in her mouth. She then was noted to stop breathing and this progressed to cardiac failure. The paramedics were called in and she had to have advanced cardiac life support before she could be resuscitated. She was then transported to the [facility] emergency room and on the way here she was noted to have a generalized seizure. Since then, she has had multiple seizures, however, at this point in time, they are well controlled on the present regimen. 2. She continues to be in a comatose state. She does however exhibit spontaneous eye opening and closing. She is still exhibiting decerebrate posturing. She has had no seizures or seizure like phenomena. She continues to be artificially ventilated. There has been no improvement in her neurologic state. 3. On neurological examination, at this time, she is comatose and does not respond even to deep pain. She exhibits spontaneous decerebration. She does not demonstrate any focal or lateralizing findings. 4. The CT scan of the brain without contrast is benign for acute pathology. 5. Her latest laboratory data on my initial evaluation revealed that her WBC count was elevated to 17,600 with predominantly 79% being neutrophils and 15% being lymphocytes and monocytes. Her arterial blood gas revealed pCO2 low at 21.2, pO2 at 154, and pH of 7.49. Her chemistry panel revealed a creatinine elevated to 1.7. Her AST was elevated at 255, ALT elevated at 251, and alkaline phosphatase elevated at 142. Her albumin was low at 2.9. Her Urinalysis revealed 1+ leukocyte esterase, 20- 30 red blood cells, and 5-10 white blood cells per high-power field. The urine toxicology screen was positive for cocaine. 6. Her EEG done on 10/31/17 revealed a severe encephalopathy and bilateral frontal epileptogenic foci with inter-ictal discharges at times with a large field. 7. The patient's history, neurological examination, laboratory data and imaging studies are most compatible with seizures due to a hypoxic/ischemic cerebral insult and/or cocaine intoxication. 8. The prognosis for recovery of cerebral function is dismal. Recommendations 1. Continue present management. 2. Continue to treat the patient's infectious process vigorously. 3. Discontinue Dilantin. 4. Continue Keppra 1 G intravenously every 8 hours. 5. In light of her poor prognosis make decision regarding intensity of care. Denisse Lester M.D., M.S.P.Zackery. DENISSE LESTER Nov 10, 2017 18:44
[2017-11-10] MEDS: Dyna-Hex 2% Top Sol 2oz TOPIC SCH (20:08)
--- NOTE | 2017-11-10 23:17 | Cardiology Progress Note ---
Assessment/Plan Assessment/Plan 1. Sinus tachycardia, possibly due to cocaine intoxication, continue diltiazem, echo reveals normal left ventricular systolic function with LVEF of approximately 55%. 2. Acute hypoxemic respiratory failure due to aspiration PNA. 3. HTN, continue cardizem. 4. Mild pulmonary hypertension with right ventricular systolic pressure measured at 42 mmHg. 5. Seizure disorder. 6. Polysubstance abuse. 7.Small right pneumothorax, resolved. Subjective Subjective Sinus tachycardia at 101. Intubated. Objective Last 24 Hour Vital Signs Date Time Temp Pulse Resp B/P (MAP) Pulse Ox O2 Delivery O2 Flow Rate FiO2 11/10/17 22:00 101 22 148/77 (100) 98 11/10/17 21:41 104 144/80 11/10/17 21:10 91 23 30 11/10/17 21:00 95 21 144/80 (101) 99 11/10/17 20:00 Mechanical Ventilator 11/10/17 20:00 30 11/10/17 20:00 98.6 94 21 136/63 (87) 96 98.6 11/10/17 19:00 105 17 147/74 (98) 99 11/10/17 18:56 100 17 30 11/10/17 18:00 91 21 127/67 (87) 98 11/10/17 17:00 95 20 122/70 (87) 96 11/10/17 16:58 93 22 30 11/10/17 16:00 98.8 97 21 126/65 (85) 95 98.8 11/10/17 16:00 95 11/10/17 16:00 30 11/10/17 16:00 Mechanical Ventilator 11/10/17 15:02 95 137/78 11/10/17 15:00 96 20 137/78 (97) 96 11/10/17 14:56 102 21 30 11/10/17 14:00 103 24 127/77 (94) 100 11/10/17 13:00 91 19 132/78 (96) 100 11/10/17 13:00 95 11/10/17 12:45 93 21 30 11/10/17 12:00 Mechanical Ventilator 11/10/17 12:00 98.8 103 23 131/69 (89) 97 98.8 11/10/17 12:00 30 11/10/17 11:00 92 19 133/72 (92) 100 11/10/17 10:40 102 22 30 11/10/17 10:00 93 16 136/74 (94) 100 11/10/17 09:11 88 12 30 11/10/17 09:00 30 11/10/17 09:00 93 13 132/83 (99) 100 11/10/17 08:00 99 11/10/17 08:00 92 14 140/71 (94) 100 11/10/17 08:00 Mechanical Ventilator 11/10/17 07:29 86 14 30 11/10/17 07:00 93 14 161/89 (113) 100 11/10/17 06:13 83 145/71 11/10/17 06:00 82 12 145/71 (95) 99 11/10/17 05:28 80 14 30 11/10/17 05:02 160/89 11/10/17 05:00 89 15 160/87 (111) 100 11/10/17 04:00 Mechanical Ventilator 11/10/17 04:00 94 11/10/17 04:00 30 11/10/17 04:00 98.6 89 15 166/77 (106) 100 98.6 11/10/17 03:00 87 15 148/88 (108) 100 11/10/17 02:43 95 14 30 11/10/17 02:00 87 15 147/88 (107) 100 11/10/17 01:33 97 16 30 11/10/17 01:00 92 15 148/76 (100) 100 11/10/17 00:00 30 11/10/17 00:00 Mechanical Ventilator 11/10/17 00:00 64 15 148/76 (100) 100 11/10/17 00:00 94 Intake and Output 11/09/17 11/10/17 19:00 07:00 Intake Total 1054 ml 697 ml Output Total 350 ml 859 ml Balance 704 ml -162 ml IV Total 514 ml 157 ml Tube Feeding 540 ml 540 ml Output Urine Total 350 ml 859 ml # Bowel Movements 6 1 2D Echo: EF 60-65%, mild LVH, Mild AR, normal LVDD, RVSP 42 mmHg Laboratory Tests Test 11/10/17 03:30 White Blood Count 15.2 K/UL (4.8-10.8) H Red Blood Count 3.41 M/UL (4.20-5.40) L Hemoglobin 10.0 G/DL (12.0-16.0) L Hematocrit 31.6 % (37.0-47.0) L Mean Corpuscular Volume 93 FL (80-99) Mean Corpuscular Hemoglobin 29.4 PG (27.0-31.0) Mean Corpuscular Hemoglobin Concent 31.7 G/DL (32.0-36.0) L Red Cell Distribution Width 13.5 % (11.6-14.8) Platelet Count 444 K/UL (150-450) Mean Platelet Volume 5.3 FL (6.5-10.1) L Neutrophils (%) (Auto) 67.9 % (45.0-75.0) Lymphocytes (%) (Auto) 23.0 % (20.0-45.0) Monocytes (%) (Auto) 8.0 % (1.0-10.0) Eosinophils (%) (Auto) 0.5 % (0.0-3.0) Basophils (%) (Auto) 0.6 % (0.0-2.0) Sodium Level 141 MMOL/L (136-145) Potassium Level 3.3 MMOL/L (3.5-5.1) L Chloride Level 106 MMOL/L (98-107) Carbon Dioxide Level 31 MMOL/L (21-32) Anion Gap 4 mmol/L (5-15) L Blood Urea Nitrogen 20 mg/dL (7-18) H Creatinine 0.7 MG/DL (0.55-1.30) Estimat Glomerular Filtration Rate > 60 mL/min (>60) Glucose Level 97 MG/DL (74-106) Calcium Level 8.9 MG/DL (8.5-10.1) Phosphorus Level 2.9 MG/DL (2.5-4.9) Magnesium Level 1.9 MG/DL (1.8-2.4) Total Bilirubin 0.1 MG/DL (0.2-1.0) L Aspartate Amino Transf (AST/SGOT) 69 U/L (15-37) H Alanine Aminotransferase (ALT/SGPT) 102 U/L (12-78) H Alkaline Phosphatase 87 U/L (46-116) Total Protein 6.3 G/DL (6.4-8.2) L Albumin 2.3 G/DL (3.4-5.0) L Globulin 4.0 g/dL Albumin/Globulin Ratio 0.6 (1.0-2.7) L Objective HEENT: Atraumatic and normocephalic. Anicteric. Pupils are equal, round, and reactive to light and accommodation. NECK: JVP cannot be assessed due to intubation. CARDIOVASCULAR: Normal S1, S2, regular rate rhythm, no murmurs, gallops, or rubs. LUNGS: Diminished breath sounds in both bases. ABDOMEN: Soft, nontender, and nondistended. Positive bowel sounds. EXTREMITIES: No evidence of edema, clubbing, or cyanosis. Geovany Brown MD Nov 10, 2017 23:17
[2017-11-11] VITALS (24 sets, daily range): BP systolic 115–166; BP diastolic 63–97
[2017-11-11] MEDS: levETIRAcetam 1,000mg/NS100ml 100 ML IVPB SCH ×3 (00:58→17:55)
[2017-11-11 04:41] LABS: HEMATOCRIT 33.8 % (37.0-47.0); HEMOGLOBIN 11.2 G/DL (12.0-16.0); MEAN CORPUSCULAR VOLUME 91 FL (80-99); PLATELET COUNT 500 K/UL (150-450); RED BLOOD COUNT 3.69 M/UL (4.20-5.40); RED CELL DISTRIBUTION WIDTH 12.8 % (11.6-14.8); WHITE BLOOD COUNT 18.2 K/UL (4.8-10.8)
[2017-11-11 05:10] LABS: ALANINE AMINOTRANSFERASE 123 U/L (12-78); ALBUMIN 2.5 G/DL (3.4-5.0); ALBUMIN/GLOBULIN RATIO 0.6 (1.0-2.7); ALKALINE PHOSPHATASE 94 U/L (46-116); ANION GAP 6 mmol/L (5-15); ASPARTATE AMINO TRANSFERASE 79 U/L (15-37); BILIRUBIN,TOTAL 0.2 MG/DL (0.2-1.0); BLOOD UREA NITROGEN 18 mg/dL (7-18); CARBON DIOXIDE 32 MMOL/L (21-32); CHLORIDE 104 MMOL/L (98-107); CREATININE 0.7 MG/DL (0.55-1.30); PHOSPHORUS 3.4 MG/DL (2.5-4.9); POTASSIUM 3.8 MMOL/L (3.5-5.1); SODIUM 142 MMOL/L (136-145)
[2017-11-11] MEDS: dilTIAZem HCl 60mg tab NG SCH ×3 (05:27→21:47)
[2017-11-11] MEDS: NovoLOG Insulin Flexpen SUBQ SCH ×5 (06:00→23:39)
--- NOTE | 2017-11-11 09:18 | Infectious Diseases Prog Note ---
Assessment/Plan Assessment/Plan 57 yo female who presented to the ED on 10/30/17 after pulmonary arrest. Sepsis - Probable Asp PNA On Abx 10/30 Sputum Cultures - Predominantly NF - +1 Steno Will hold off Tx of Steno as patient improving 10/31 Urine Cx - NGTD Leukocytosis - WBCs 16 after seizure No Fevers Seizures - Had Seizure on route to ED 10/30/17 and in the ICU as well Drug abuse - Pos for cocaine Arthritis Chronic pain. P: - WBCs increased will reculture Blood, Sputum and Urine - Levofloxacin #07/31 - To cover Stenotrophomonas as she had new fevers - 11/04 Ceftriaxone #3 - Continue Flagyl #11/30 for asp PNA - 10/31 Vancomycin #1 - 10/31 Aztreonam - 10/30 SP Ceftriaxone - Monitor CBC and Temps - Vent management per pulm - Poor prognosis We will continue to follow the patient during this hospitalization. Subjective Allergies: Coded Allergies: ASPIRIN (Verified Allergy, Unknown, 10/30/17) PENICILLINS (Verified Allergy, Unknown, 10/30/17) Subjective On 30% FiO2 No Clinical change in mental status Objective Vital Signs Last 24 Hour Vital Signs Date Time Temp Pulse Resp B/P (MAP) Pulse Ox O2 Delivery O2 Flow Rate FiO2 11/11/17 07:01 101 13 30 11/11/17 07:00 92 16 153/73 (99) 100 11/11/17 06:00 106 16 152/95 (114) 100 11/11/17 05:35 96 13 30 11/11/17 05:27 99 166/74 11/11/17 05:00 102 15 166/74 (104) 100 11/11/17 04:00 98.6 96 13 149/81 (103) 100 98.6 11/11/17 04:00 106 11/11/17 04:00 30 11/11/17 04:00 Mechanical Ventilator 11/11/17 03:32 101 16 30 11/11/17 03:00 86 13 139/76 (97) 99 11/11/17 02:00 97 14 161/88 (112) 99 11/11/17 01:05 88 13 30 11/11/17 01:00 98 15 145/88 (107) 100 11/11/17 00:00 98.8 91 13 157/90 (112) 100 98.8 11/11/17 00:00 30 11/11/17 00:00 Mechanical Ventilator 11/11/17 00:00 94 11/10/17 23:10 93 18 30 11/10/17 23:00 96 21 144/84 (104) 98 11/10/17 22:00 101 22 148/77 (100) 98 18 21:41 104 144/80 11/10/17 21:10 91 23 30 11/10/17 21:00 95 21 144/80 (101) 99 11/10/17 20:00 Mechanical Ventilator 11/10/17 20:00 30 11/10/17 20:00 94 11/10/17 20:00 98.6 94 21 136/63 (87) 96 98.6 11/10/17 19:00 105 17 147/74 (98) 99 11/10/17 18:56 100 17 30 11/10/17 18:00 91 21 127/67 (87) 98 11/10/17 17:00 95 20 122/70 (87) 96 11/10/17 16:58 93 22 30 11/10/17 16:00 98.8 97 21 126/65 (85) 95 98.8 11/10/17 16:00 95 11/10/17 16:00 30 11/10/17 16:00 Mechanical Ventilator 11/10/17 15:02 95 137/78 11/10/17 15:00 96 20 137/78 (97) 96 11/10/17 14:56 102 21 30 11/10/17 14:00 103 24 127/77 (94) 100 11/10/17 13:00 91 19 132/78 (96) 100 11/10/17 13:00 95 11/10/17 12:45 93 21 30 11/10/17 12:00 Mechanical Ventilator 11/10/17 12:00 98.8 103 23 131/69 (89) 97 98.8 11/10/17 12:00 30 11/10/17 11:00 92 19 133/72 (92) 100 18 10:40 102 22 30 11/10/17 10:00 93 16 136/74 (94) 100 Height (Feet): 5 Height (Inches): 2.00 Weight (Pounds): 105 Objective Gen: On Vent 30% O2 HEENT: NCAT, eye open at times not tracking LUNGS: Mechanical breath sounds, No Wheezing CARDS: RRR, S1, S2 ABD: Soft, NT, ND, + BS NEURO: Not responsive Laboratory Tests Test 11/11/17 04:00 White Blood Count 18.2 K/UL (4.8-10.8) H Red Blood Count 3.69 M/UL (4.20-5.40) L Hemoglobin 11.2 G/DL (12.0-16.0) L Hematocrit 33.8 % (37.0-47.0) L Mean Corpuscular Volume 91 FL (80-99) Mean Corpuscular Hemoglobin 30.5 PG (27.0-31.0) Mean Corpuscular Hemoglobin Concent 33.3 G/DL (32.0-36.0) Red Cell Distribution Width 12.8 % (11.6-14.8) Platelet Count 500 K/UL (150-450) H Mean Platelet Volume 5.5 FL (6.5-10.1) L Neutrophils (%) (Auto) % (45.0-75.0) Lymphocytes (%) (Auto) % (20.0-45.0) Monocytes (%) (Auto) % (1.0-10.0) Eosinophils (%) (Auto) % (0.0-3.0) Basophils (%) (Auto) % (0.0-2.0) Neutrophils % (Manual) Pending Lymphocytes % (Manual) Pending Platelet Estimate Pending Platelet Morphology Pending Sodium Level 142 MMOL/L (136-145) Potassium Level 3.8 MMOL/L (3.5-5.1) Chloride Level 104 MMOL/L (98-107) Carbon Dioxide Level 32 MMOL/L (21-32) Anion Gap 6 mmol/L (5-15) Blood Urea Nitrogen 18 mg/dL (7-18) Creatinine 0.7 MG/DL (0.55-1.30) Estimat Glomerular Filtration Rate > 60 mL/min (>60) Glucose Level 98 MG/DL (74-106) Calcium Level 9.0 MG/DL (8.5-10.1) Phosphorus Level 3.4 MG/DL (2.5-4.9) Magnesium Level 2.0 MG/DL (1.8-2.4) Total Bilirubin 0.2 MG/DL (0.2-1.0) Aspartate Amino Transf (AST/SGOT) 79 U/L (15-37) H Alanine Aminotransferase (ALT/SGPT) 123 U/L (12-78) H Alkaline Phosphatase 94 U/L (46-116) Total Protein 7.0 G/DL (6.4-8.2) Albumin 2.5 G/DL (3.4-5.0) L Globulin 4.5 g/dL Albumin/Globulin Ratio 0.6 (1.0-2.7) L Current Medications Medications (Trade) Dose Ordered Sig/Yung Route PRN Reason Start Time Stop Time Status Last Admin Dose Admin Acetaminophen (Tylenol) 650 mg Q4H PRN RECTAL Prn Headache/Temp > 101 10/30/17 16:45 11/29/17 16:44 10/31/17 21:24 Acetaminophen (Tylenol) 650 mg Q6H PRN NG Mild Pain/Temp > 100.5 11/03/17 22:00 12/03/17 21:59 11/05/17 19:09 Chlorhexidine Gluconate (Sunita-Hex 2%) 1 applic DAILY@2000 TOPIC 10/30/17 20:00 11/29/17 19:59 11/10/17 20:08 Clonidine HCl (Catapres Tab) 0.1 mg Q4H PRN ORAL for SBP >160 11/01/17 13:00 12/01/17 12:59 11/10/17 05:02 Dextrose (Dextrose 50%) 25 ml STAT PRN IV Hypoglycemia 11/03/17 18:00 12/03/17 17:59 Dextrose (Dextrose 50%) 50 ml STAT PRN IV Hypoglycemia 11/03/17 18:00 12/03/17 17:59 Diltiazem HCl (Cardizem) 60 mg EVERY 8 HOURS NG 11/05/17 22:00 12/05/17 21:59 11/11/17 05:27 Haloperidol Lactate 5 mg/ Dextrose 56 ml @ 112 mls/hr Q1H PRN IVPB Agitation 11/02/17 10:00 12/02/17 09:59 11/02/17 12:53 Heparin Sodium (Porcine) (Heparin 5000 units/ml) 5,000 units EVERY 12 HOURS SUBQ 10/30/17 09:00 11/29/17 08:59 11/10/17 20:09 Hydrocortisone (Solu-CORTEF) 25 mg BID IV 11/08/17 09:00 11/30/17 18:29 11/10/17 17:17 Insulin Aspart (NovoLOG) Q6HR SUBQ 11/08/17 12:00 12/03/17 19:59 11/10/17 12:31 Levetiracetam 100 ml @ 400 mls/hr Q8H IVPB 10/30/17 17:00 11/29/17 16:59 11/11/17 00:58 Levofloxacin (Levaquin) 750 mg Q48H GT 11/09/17 09:00 11/14/17 23:00 11/09/17 08:23 Lorazepam (Ativan 2mg/ml 1ml) 2 mg Q2H PRN IV For Anxiety 11/08/17 08:00 11/15/17 07:59 11/08/17 19:37 Metronidazole 100 ml @ 100 mls/hr Q8HR IVPB 11/11/17 09:30 11/18/17 09:29 Nitroglycerin (Ntg) 0.4 mg Q5M PRN SL Prn Chest Pain 10/30/17 08:00 11/29/17 07:59 Ondansetron HCl (Zofran) 4 mg Q6H PRN IVP Nausea & Vomiting 10/30/17 08:00 11/29/17 07:59 Pantoprazole (Protonix) 40 mg DAILY IVP 11/02/17 09:00 12/02/17 08:59 11/10/17 08:43 Gutierrez Sifuentes MD Nov 11, 2017 09:18
[2017-11-11] MEDS ORDERED: Tubing IV Secondary IV ONE (09:51)
[2017-11-11] MEDS ORDERED: NS 500ML ONE (09:51)
[2017-11-11] MEDS: Hydrocortisone 100mg Inj IV SCH ×2 (10:26→17:55)
[2017-11-11] MEDS: Pantoprazole Inj IVP SCH (10:26)
[2017-11-11] MEDS: Heparin 5000 units/ml inj SUBQ SCH ×2 (10:27→21:00)
[2017-11-11] MEDS: Acetaminophen 650mg/20.3ml NG PRN (10:31)
--- NOTE | 2017-11-11 10:34 | Pulmonolgy Critical Care Note ---
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 Discussed with: nurses, consultants, 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 - Objective Last 24 Hour Vital Signs Date Time Temp Pulse Resp B/P (MAP) Pulse Ox O2 Delivery O2 Flow Rate FiO2 11/11/17 10:31 98.6 11/11/17 07:01 101 13 30 11/11/17 07:00 92 16 153/73 (99) 100 11/11/17 06:00 106 16 152/95 (114) 100 11/11/17 05:35 96 13 30 11/11/17 05:27 99 166/74 11/11/17 05:00 102 15 166/74 (104) 100 11/11/17 04:00 98.6 96 13 149/81 (103) 100 98.6 11/11/17 04:00 106 11/11/17 04:00 30 11/11/17 04:00 Mechanical Ventilator 11/11/17 03:32 101 16 30 11/11/17 03:00 86 13 139/76 (97) 99 11/11/17 02:00 97 14 161/88 (112) 99 11/11/17 01:05 88 13 30 11/11/17 01:00 98 15 145/88 (107) 100 11/11/17 00:00 98.8 91 13 157/90 (112) 100 98.8 11/11/17 00:00 30 11/11/17 00:00 Mechanical Ventilator 11/11/17 00:00 94 11/10/17 23:10 93 18 30 11/10/17 23:00 96 21 144/84 (104) 98 11/10/17 22:00 101 22 148/77 (100) 98 11/10/17 21:41 104 144/80 11/10/17 21:10 91 23 30 11/10/17 21:00 95 21 144/80 (101) 99 11/10/17 20:00 Mechanical Ventilator 11/10/17 20:00 30 11/10/17 20:00 94 11/10/17 20:00 98.6 94 21 136/63 (87) 96 98.6 11/10/17 19:00 105 17 147/74 (98) 99 11/10/17 18:56 100 17 30 11/10/17 18:00 91 21 127/67 (87) 98 11/10/17 17:00 95 20 122/70 (87) 96 11/10/17 16:58 93 22 30 11/10/17 16:00 98.8 97 21 126/65 (85) 95 98.8 11/10/17 16:00 95 11/10/17 16:00 30 11/10/17 16:00 Mechanical Ventilator 11/10/17 15:02 95 137/78 11/10/17 15:00 96 20 137/78 (97) 96 11/10/17 14:56 102 21 30 11/10/17 14:00 103 24 127/77 (94) 100 11/10/17 13:00 91 19 132/78 (96) 100 11/10/17 13:00 95 11/10/17 12:45 93 21 30 11/10/17 12:00 Mechanical Ventilator 11/10/17 12:00 98.8 103 23 131/69 (89) 97 98.8 11/10/17 12:00 30 11/10/17 11:00 92 19 133/72 (92) 100 11/10/17 10:40 102 22 30 Status: sedated HEENT: atraumatic, normocephalic Lungs: chest wall tender Heart: HR/BP unstable Abdomen: non-tender, feeding tube Extremities: edema Decubiti: stage Accucheck: 108 Critical Care - Subjective ROS Limited/Unobtainable: No Condition: critical EKG Rhythm: Sinus Rhythm FI02: 30 Vent Support Breath Rate: 12 Vent Support Mode: AC Vent Tidal Volume: 500 Sputum Amount: Large PEEP: 0.0 PIP: 23 Tube Feeding Amount: 45 I&O: Intake and Output 11/10/17 11/11/17 19:00 07:00 Intake Total 994 ml 670 ml Output Total 765 ml 600 ml Balance 229 ml 70 ml Free Water 100 ml IV Total 314 ml Tube Feeding 540 ml 540 ml Other 40 ml 130 ml Output Urine Total 765 ml 600 ml # Bowel Movements 2 3 ET-Tube: 7.5 ET Position: 23 Labs: Laboratory Tests Test 11/11/17 04:00 White Blood Count 18.2 K/UL (4.8-10.8) H Red Blood Count 3.69 M/UL (4.20-5.40) L Hemoglobin 11.2 G/DL (12.0-16.0) L Hematocrit 33.8 % (37.0-47.0) L Mean Corpuscular Volume 91 FL (80-99) Mean Corpuscular Hemoglobin 30.5 PG (27.0-31.0) Mean Corpuscular Hemoglobin Concent 33.3 G/DL (32.0-36.0) Red Cell Distribution Width 12.8 % (11.6-14.8) Platelet Count 500 K/UL (150-450) H Mean Platelet Volume 5.5 FL (6.5-10.1) L Neutrophils (%) (Auto) % (45.0-75.0) Lymphocytes (%) (Auto) % (20.0-45.0) Monocytes (%) (Auto) % (1.0-10.0) Eosinophils (%) (Auto) % (0.0-3.0) Basophils (%) (Auto) % (0.0-2.0) Differential Total Cells Counted 100 Neutrophils % (Manual) 76 % (45-75) H Lymphocytes % (Manual) 20 % (20-45) Monocytes % (Manual) 4 % (1-10) Eosinophils % (Manual) 0 % (0-3) Basophils % (Manual) 0 % (0-2) Band Neutrophils 0 % (0-8) Platelet Estimate Increased H Platelet Morphology Normal Red Blood Cell Morphology Normal Sodium Level 142 MMOL/L (136-145) Potassium Level 3.8 MMOL/L (3.5-5.1) Chloride Level 104 MMOL/L (98-107) Carbon Dioxide Level 32 MMOL/L (21-32) Anion Gap 6 mmol/L (5-15) Blood Urea Nitrogen 18 mg/dL (7-18) Creatinine 0.7 MG/DL (0.55-1.30) Estimat Glomerular Filtration Rate > 60 mL/min (>60) Glucose Level 98 MG/DL (74-106) Calcium Level 9.0 MG/DL (8.5-10.1) Phosphorus Level 3.4 MG/DL (2.5-4.9) Magnesium Level 2.0 MG/DL (1.8-2.4) Total Bilirubin 0.2 MG/DL (0.2-1.0) Aspartate Amino Transf (AST/SGOT) 79 U/L (15-37) H Alanine Aminotransferase (ALT/SGPT) 123 U/L (12-78) H Alkaline Phosphatase 94 U/L (46-116) Total Protein 7.0 G/DL (6.4-8.2) Albumin 2.5 G/DL (3.4-5.0) L Globulin 4.5 g/dL Albumin/Globulin Ratio 0.6 (1.0-2.7) L Evan Purcell MD Nov 11, 2017 10:34
--- NOTE | 2017-11-11 12:56 | GI Progress Note ---
Assessment/Plan Problems: (1) Diabetes ICD Codes: E11.9 - Type 2 diabetes mellitus without complications SNOMED: 81528981 (2) Cocaine abuse ICD Codes: F14.10 - Cocaine abuse, uncomplicated SNOMED: 16300228 (3) Transaminitis ICD Codes: R74.0 - Nonspecific elevation of levels of transaminase and lactic acid dehydrogenase [LDH] SNOMED: 131281407, 363874720 (4) Anemia ICD Codes: D64.9 - Anemia, unspecified SNOMED: 012756392 Status: not improved, unchanged Status Narrative Discussed with Dr. Sauceda. Assessment/Plan NGTFs fu labs supportive care peg if needed poor prognosis The patient was seen and examined at bedside and all new and available data was reviewed in the patients chart. I agree with the above findings, impression and plan. (Patient seen earlier today. Signature stamp does not reflect patient encounter time.). - Renaldo Sauceda MD Subjective Subjective limited Objective Last 24 Hour Vital Signs Date Time Temp Pulse Resp B/P (MAP) Pulse Ox O2 Delivery O2 Flow Rate FiO2 11/11/17 12:00 102 11/11/17 12:00 30 11/11/17 11:59 Mechanical Ventilator 11/11/17 11:01 98.6 11/11/17 11:00 104 17 100 11/11/17 10:44 105 20 30 11/11/17 10:31 98.6 11/11/17 10:00 104 19 148/76 (100) 100 11/11/17 09:00 114 17 162/80 (107) 100 11/11/17 08:47 100 16 30 11/11/17 08:00 103 16 154/77 (102) 100 11/11/17 08:00 Mechanical Ventilator 11/11/17 08:00 89 11/11/17 07:01 101 13 30 11/11/17 07:00 92 16 153/73 (99) 100 11/11/17 06:00 106 16 152/95 (114) 100 11/11/17 05:35 96 13 30 11/11/17 05:27 99 166/74 11/11/17 05:00 102 15 166/74 (104) 100 11/11/17 04:00 98.6 96 13 149/81 (103) 100 98.6 9/21/18 04:00 106 11/11/17 04:00 30 11/11/17 04:00 Mechanical Ventilator 11/11/17 03:32 101 16 30 11/11/17 03:00 86 13 139/76 (97) 99 11/11/17 02:00 97 14 161/88 (112) 99 11/11/17 01:05 88 13 30 11/11/17 01:00 98 15 145/88 (107) 100 11/11/17 00:00 98.8 91 13 157/90 (112) 100 98.8 11/11/17 00:00 30 11/11/17 00:00 Mechanical Ventilator 11/11/17 00:00 94 11/10/17 23:10 93 18 30 11/10/17 23:00 96 21 144/84 (104) 98 11/10/17 22:00 101 22 148/77 (100) 98 11/10/17 21:41 104 144/80 11/10/17 21:10 91 23 30 11/10/17 21:00 95 21 144/80 (101) 99 11/10/17 20:00 Mechanical Ventilator 11/10/17 20:00 30 11/10/17 20:00 94 11/10/17 20:00 98.6 94 21 136/63 (87) 96 98.6 11/10/17 19:00 105 17 147/74 (98) 99 11/10/17 18:56 100 17 30 11/10/17 18:00 91 21 127/67 (87) 98 11/10/17 17:00 95 20 122/70 (87) 96 11/10/17 16:58 93 22 30 11/10/17 16:00 98.8 97 21 126/65 (85) 95 98.8 11/10/17 16:00 95 11/10/17 16:00 30 11/10/17 16:00 Mechanical Ventilator 11/10/17 15:02 95 137/78 11/10/17 15:00 96 20 137/78 (97) 96 11/10/17 14:56 102 21 30 11/10/17 14:00 103 24 127/77 (94) 100 11/10/17 13:00 91 19 132/78 (96) 100 11/10/17 13:00 95 Intake and Output 11/10/17 11/11/17 19:00 07:00 Intake Total 994 ml 670 ml Output Total 765 ml 600 ml Balance 229 ml 70 ml Free Water 100 ml IV Total 314 ml Tube Feeding 540 ml 540 ml Other 40 ml 130 ml Output Urine Total 765 ml 600 ml # Bowel Movements 2 3 Laboratory Tests Test 11/11/17 04:00 White Blood Count 18.2 K/UL (4.8-10.8) H Red Blood Count 3.69 M/UL (4.20-5.40) L Hemoglobin 11.2 G/DL (12.0-16.0) L Hematocrit 33.8 % (37.0-47.0) L Mean Corpuscular Volume 91 FL (80-99) Mean Corpuscular Hemoglobin 30.5 PG (27.0-31.0) Mean Corpuscular Hemoglobin Concent 33.3 G/DL (32.0-36.0) Red Cell Distribution Width 12.8 % (11.6-14.8) Platelet Count 500 K/UL (150-450) H Mean Platelet Volume 5.5 FL (6.5-10.1) L Neutrophils (%) (Auto) % (45.0-75.0) Lymphocytes (%) (Auto) % (20.0-45.0) Monocytes (%) (Auto) % (1.0-10.0) Eosinophils (%) (Auto) % (0.0-3.0) Basophils (%) (Auto) % (0.0-2.0) Differential Total Cells Counted 100 Neutrophils % (Manual) 76 % (45-75) H Lymphocytes % (Manual) 20 % (20-45) Monocytes % (Manual) 4 % (1-10) Eosinophils % (Manual) 0 % (0-3) Basophils % (Manual) 0 % (0-2) Band Neutrophils 0 % (0-8) Platelet Estimate Increased H Platelet Morphology Normal Red Blood Cell Morphology Normal Sodium Level 142 MMOL/L (136-145) Potassium Level 3.8 MMOL/L (3.5-5.1) Chloride Level 104 MMOL/L (98-107) Carbon Dioxide Level 32 MMOL/L (21-32) Anion Gap 6 mmol/L (5-15) Blood Urea Nitrogen 18 mg/dL (7-18) Creatinine 0.7 MG/DL (0.55-1.30) Estimat Glomerular Filtration Rate > 60 mL/min (>60) Glucose Level 98 MG/DL (74-106) Calcium Level 9.0 MG/DL (8.5-10.1) Phosphorus Level 3.4 MG/DL (2.5-4.9) Magnesium Level 2.0 MG/DL (1.8-2.4) Total Bilirubin 0.2 MG/DL (0.2-1.0) Aspartate Amino Transf (AST/SGOT) 79 U/L (15-37) H Alanine Aminotransferase (ALT/SGPT) 123 U/L (12-78) H Alkaline Phosphatase 94 U/L (46-116) Total Protein 7.0 G/DL (6.4-8.2) Albumin 2.5 G/DL (3.4-5.0) L Globulin 4.5 g/dL Albumin/Globulin Ratio 0.6 (1.0-2.7) L Height (Feet): 5 Height (Inches): 2.00 Weight (Pounds): 105 General Appearance: no apparent distress, cachetic, thin Cardiovascular: normal rate Respiratory/Chest: other - intubated Abdominal Exam: other - NGT Risa Davenport NP Nov 11, 2017 12:56
[2017-11-11 13:48] LABS: APPEARANCE,URINE SLIGHTLY CLOUDY; BILIRUBIN, URINE NEGATIVE (NEGATIVE); GLUCOSE, URINE (UA) NEGATIVE (NEGATIVE); KETONES,URINE NEGATIVE (NEGATIVE); LEUKOCYTE ESTERASE ,URINE 3+ (NEGATIVE); NITRITE,URINE NEGATIVE (NEGATIVE); PH,URINE 5 (4.5-8.0); PROTEIN,URINE 2+ (NEGATIVE); UROBILINOGEN,URINE NORMAL MG/DL (0.0-1.0)
[2017-11-11 13:52] LABS: COLOR,URINE YELLOW
--- NOTE | 2017-11-11 14:26 | General Progress Note ---
Assessment/Plan Problem List: (1) Renal insufficiency ICD Codes: N28.9 - Disorder of kidney and ureter, unspecified SNOMED: 705705408, 172221566 (2) UTI (urinary tract infection) ICD Codes: N39.0 - Urinary tract infection, site not specified SNOMED: 68430929 (3) Seizure ICD Codes: R56.9 - Unspecified convulsions SNOMED: 36512758 (4) HTN (hypertension) ICD Codes: I10 - Essential (primary) hypertension SNOMED: 65646526 (5) Diabetes ICD Codes: E11.9 - Type 2 diabetes mellitus without complications SNOMED: 39600131 Status: unchanged Assessment/Plan vent abx detox neph f/u cbc bmp am Subjective Constitutional: Reports: weakness Allergies: Coded Allergies: ASPIRIN (Verified Allergy, Unknown, 10/30/17) PENICILLINS (Verified Allergy, Unknown, 10/30/17) All Systems: reviewed and negative except above Subjective intubated sedated in icu ng Objective Last 24 Hour Vital Signs Date Time Temp Pulse Resp B/P (MAP) Pulse Ox O2 Delivery O2 Flow Rate FiO2 11/11/17 13:00 100 19 115/71 (86) 100 11/11/17 12:45 99 16 30 11/11/17 12:00 100 19 161/79 (106) 100 11/11/17 12:00 102 11/11/17 12:00 30 11/11/17 11:59 Mechanical Ventilator 11/11/17 11:01 98.6 11/11/17 11:00 104 19 137/78 (97) 100 11/11/17 10:44 105 20 30 11/11/17 10:31 98.6 11/11/17 10:00 104 19 148/76 (100) 100 11/11/17 09:00 114 17 162/80 (107) 100 11/11/17 08:47 100 16 30 11/11/17 08:00 103 16 154/77 (102) 100 11/11/17 08:00 Mechanical Ventilator 11/11/17 08:00 89 11/11/17 07:01 101 13 30 11/11/17 07:00 92 16 153/73 (99) 100 11/11/17 06:00 106 16 152/95 (114) 100 11/11/17 05:35 96 13 30 11/11/17 05:27 99 166/74 11/11/17 05:00 102 15 166/74 (104) 100 11/11/17 04:00 98.6 96 13 149/81 (103) 100 98.6 11/11/17 04:00 106 11/11/17 04:00 30 11/11/17 04:00 Mechanical Ventilator 11/11/17 03:32 101 16 30 11/11/17 03:00 86 13 139/76 (97) 99 11/11/17 02:00 97 14 161/88 (112) 99 11/11/17 01:05 88 13 30 11/11/17 01:00 98 15 145/88 (107) 100 11/11/17 00:00 98.8 91 13 157/90 (112) 100 98.8 11/11/17 00:00 30 11/11/17 00:00 Mechanical Ventilator 11/11/17 00:00 94 11/10/17 23:10 93 18 30 11/10/17 23:00 96 21 144/84 (104) 98 11/10/17 22:00 101 22 148/77 (100) 98 11/10/17 21:41 104 144/80 11/10/17 21:10 91 23 30 11/10/17 21:00 95 21 144/80 (101) 99 11/10/17 20:00 Mechanical Ventilator 11/10/17 20:00 30 11/10/17 20:00 94 11/10/17 20:00 98.6 94 21 136/63 (87) 96 98.6 11/10/17 19:00 105 17 147/74 (98) 99 11/10/17 18:56 100 17 30 11/10/17 18:00 91 21 127/67 (87) 98 11/10/17 17:00 95 20 122/70 (87) 96 11/10/17 16:58 93 22 30 11/10/17 16:00 98.8 97 21 126/65 (85) 95 98.8 11/10/17 16:00 95 11/10/17 16:00 30 11/10/17 16:00 Mechanical Ventilator 11/10/17 15:02 95 137/78 11/10/17 15:00 96 20 137/78 (97) 96 11/10/17 14:56 102 21 30 Intake and Output 11/10/17 11/11/17 19:00 07:00 Intake Total 994 ml 670 ml Output Total 765 ml 600 ml Balance 229 ml 70 ml Free Water 100 ml IV Total 314 ml Tube Feeding 540 ml 540 ml Other 40 ml 130 ml Output Urine Total 765 ml 600 ml # Bowel Movements 2 3 Laboratory Tests 11/11/17 04:00: White Blood Count 18.2H, Red Blood Count 3.69L, Hemoglobin 11.2L, Hematocrit 33.8L, Mean Corpuscular Volume 91, Mean Corpuscular Hemoglobin 30.5, Mean Corpuscular Hemoglobin Concent 33.3, Red Cell Distribution Width 12.8, Platelet Count 500H, Mean Platelet Volume 5.5L, Neutrophils (%) (Auto) , Lymphocytes (%) (Auto) , Monocytes (%) (Auto) , Eosinophils (%) (Auto) , Basophils (%) (Auto) , Differential Total Cells Counted 100, Neutrophils % (Manual) 76H, Lymphocytes % (Manual) 20, Monocytes % (Manual) 4, Eosinophils % (Manual) 0, Basophils % ( Manual) 0, Band Neutrophils 0, Platelet Estimate IncreasedH, Platelet Morphology Normal, Red Blood Cell Morphology Normal, Sodium Level 142, Potassium Level 3.8, Chloride Level 104, Carbon Dioxide Level 32, Anion Gap 6, Blood Urea Nitrogen 18, Creatinine 0.7, Estimat Glomerular Filtration Rate > 60 , Glucose Level 98, Calcium Level 9.0, Phosphorus Level 3.4, Magnesium Level 2.0 , Total Bilirubin 0.2, Aspartate Amino Transf (AST/SGOT) 79H, Alanine Aminotransferase (ALT/SGPT) 123H, Alkaline Phosphatase 94, Total Protein 7.0, Albumin 2.5L, Globulin 4.5, Albumin/Globulin Ratio 0.6L 11/11/17 13:00: Urine Color Yellow, Urine Appearance Slightly cloudy, Urine pH 5, Urine Specific [place] 1.015, Urine Protein 2+H, Urine Glucose (UA) Negative, Urine Ketones Negative, Urine Blood 4+H, Urine Nitrite Negative, Urine Bilirubin Negative, Urine Urobilinogen Normal, Urine Leukocyte Esterase 3+H, Urine RBC 5- 10H, Urine WBC 20-30H, Urine Squamous Epithelial Cells Few, Urine Bacteria Few, Urine Yeast FewH Height (Feet): 5 Height (Inches): 2.00 Weight (Pounds): 105 General Appearance: lethargic EENT: normal ENT inspection Neck: non-tender, normal alignment, supple Cardiovascular: normal peripheral pulses, normal rate, regular rhythm Respiratory/Chest: chest wall non-tender, lungs clear, normal breath sounds Abdomen: normal bowel sounds, non tender, soft Extremities: normal inspection Edema: no edema noted Arm (L), no edema noted Arm (R), no edema noted Leg (L), no edema noted Leg (R), no edema noted Pedal (L), no edema noted Pedal (R), no edema noted Generalized Neurologic: motor weakness Skin: normal pigmentation, warm/dry Josias Skinner DO Nov 11, 2017 14:26
--- NOTE | 2017-11-11 14:58 | Neurology Progress Note ---
Interim History Interim History Interim History Ms. Robertson continues to be comatose. She does however exhibit spontaneous eye opening and closing. She is still exhibiting decerebrate posturing. She has had no seizures or seizure like phenomena. She continues to be artificially ventilated. There has been no improvement in her neurologic state. Review of Systems Neuro Review of Systems Unable to obtain. Objective Physical Exam Last Vital Signs Date Time Temp Pulse Resp B/P (MAP) Pulse Ox O2 Delivery O2 Flow Rate FiO2 11/11/17 14:51 100 115/71 11/11/17 13:00 19 100 11/11/17 12:45 30 11/11/17 11:59 Mechanical Ventilator 11/11/17 11:01 98.6 Laboratory Tests Test 11/11/17 04:00 11/11/17 13:00 White Blood Count 18.2 K/UL (4.8-10.8) H Red Blood Count 3.69 M/UL (4.20-5.40) L Hemoglobin 11.2 G/DL (12.0-16.0) L Hematocrit 33.8 % (37.0-47.0) L Mean Corpuscular Volume 91 FL (80-99) Mean Corpuscular Hemoglobin 30.5 PG (27.0-31.0) Mean Corpuscular Hemoglobin Concent 33.3 G/DL (32.0-36.0) Red Cell Distribution Width 12.8 % (11.6-14.8) Platelet Count 500 K/UL (150-450) H Mean Platelet Volume 5.5 FL (6.5-10.1) L Neutrophils (%) (Auto) % (45.0-75.0) Lymphocytes (%) (Auto) % (20.0-45.0) Monocytes (%) (Auto) % (1.0-10.0) Eosinophils (%) (Auto) % (0.0-3.0) Basophils (%) (Auto) % (0.0-2.0) Differential Total Cells Counted 100 Neutrophils % (Manual) 76 % (45-75) H Lymphocytes % (Manual) 20 % (20-45) Monocytes % (Manual) 4 % (1-10) Eosinophils % (Manual) 0 % (0-3) Basophils % (Manual) 0 % (0-2) Band Neutrophils 0 % (0-8) Platelet Estimate Increased H Platelet Morphology Normal Red Blood Cell Morphology Normal Sodium Level 142 MMOL/L (136-145) Potassium Level 3.8 MMOL/L (3.5-5.1) Chloride Level 104 MMOL/L (98-107) Carbon Dioxide Level 32 MMOL/L (21-32) Anion Gap 6 mmol/L (5-15) Blood Urea Nitrogen 18 mg/dL (7-18) Creatinine 0.7 MG/DL (0.55-1.30) Estimat Glomerular Filtration Rate > 60 mL/min (>60) Glucose Level 98 MG/DL (74-106) Calcium Level 9.0 MG/DL (8.5-10.1) Phosphorus Level 3.4 MG/DL (2.5-4.9) Magnesium Level 2.0 MG/DL (1.8-2.4) Total Bilirubin 0.2 MG/DL (0.2-1.0) Aspartate Amino Transf (AST/SGOT) 79 U/L (15-37) H Alanine Aminotransferase (ALT/SGPT) 123 U/L (12-78) H Alkaline Phosphatase 94 U/L (46-116) Total Protein 7.0 G/DL (6.4-8.2) Albumin 2.5 G/DL (3.4-5.0) L Globulin 4.5 g/dL Albumin/Globulin Ratio 0.6 (1.0-2.7) L Urine Color Yellow Urine Appearance Slightly cloudy Urine pH 5 (4.5-8.0) Urine Specific [place] 1.015 (1.005-1.035) Urine Protein 2+ (NEGATIVE) H Urine Glucose (UA) Negative (NEGATIVE) Urine Ketones Negative (NEGATIVE) Urine Blood 4+ (NEGATIVE) H Urine Nitrite Negative (NEGATIVE) Urine Bilirubin Negative (NEGATIVE) Urine Urobilinogen Normal MG/DL (0.0-1.0) Urine Leukocyte Esterase 3+ (NEGATIVE) H Urine RBC 5-10 /HPF (0 - 2) H Urine WBC 20-30 /HPF (0 - 2) H Urine Squamous Epithelial Cells Few /LPF (NONE/OCC) Urine Bacteria Few /HPF (NONE) Urine Yeast Few /HPF (NONE) H Neurologic Exam Objective PHYSICAL EXAMINATION: GENERAL: She is a well-developed, cachectic, lean, black lady, lying in an ICU bed, in no acute distress, connected to a ventilator via an orotracheal tube. HEAD: Normocephalic and atraumatic. EENT: Examination benign. NECK: No neck rigidity was observed. NEUROLOGIC EXAMINATION: MENTAL STATUS EXAMINATION: She was comatose and did not respond even to deep painful stimuli. She was decerebrating spontaneously and on upper extremity painful stimuli. Further mental status testing was impossible. SPEECH: Could not be tested. LANGUAGE: Could not be tested. CRANIAL NERVE EXAMINATION: II: She did not blink to threat. III, IV & : The external ocular movements were present on oculocephalic maneuvers. The pupils were 3 mm in diameter and reactive sluggishly to light. V & VII: The corneal reflexes were present, but significantly diminished. VIII: She did not respond to sounds and had no nystagmus. IX & X: The gag reflex was present but delayed on manipulating the endotracheal tube. XI: The sternocleidomastoids and trapezii could not be tested. XII: Could not be tested. MOTOR SYSTEM: The tone was increased in all four extremities with severe spasticity. Examination of muscle mass revealed generalized muscle wasting. Examination of power was impossible to perform because even on applying deep painful stimuli, no purposeful movements were seen. SENSORY EXAMINATION: She did not respond even to deep pain other than decerebration in the upper extremities and reflex withdrawal in the lower extremities. REFLEXES: 1+ and bilaterally symmetrical at the biceps, triceps, brachioradialis , and knees. 0 at both ankles. The plantar responses were extensor bilaterally. COORDINATION, STANCE & GAIT: Could not be tested. Impression/Recommendations Diagnostic Impression 1. Ms. Polly Robertson is a 57-year-old, right-handed, black lady, who does have a past history of polysubstance abuse with her recent drug of choice being cocaine, a seizure disorder, and chronic pain, who was found down in her bathroom at home with vomitus in her mouth. She then was noted to stop breathing and this progressed to cardiac failure. The paramedics were called in and she had to have advanced cardiac life support before she could be resuscitated. She was then transported to the [facility] emergency room and on the way here she was noted to have a generalized seizure. Since then, she has had multiple seizures, however, at this point in time, they are well controlled on the present regimen. 2. She continues to be in a comatose state. She does however exhibit spontaneous eye opening and closing. She is still exhibiting decerebrate posturing. She has had no seizures or seizure like phenomena. She continues to be artificially ventilated. There has been no improvement in her neurologic state. 3. On neurological examination, at this time, she is comatose and does not respond even to deep pain other than decerebration in the upper extremities and reflex withdrawal in the lower extremities. She exhibits spontaneous decerebration. She does not demonstrate any focal or lateralizing findings. 4. The CT scan of the brain without contrast is benign for acute pathology. 5. Her latest laboratory data on my initial evaluation revealed that her WBC count was elevated to 17,600 with predominantly 79% being neutrophils and 15% being lymphocytes and monocytes. Her arterial blood gas revealed pCO2 low at 21.2, pO2 at 154, and pH of 7.49. Her chemistry panel revealed a creatinine elevated to 1.7. Her AST was elevated at 255, ALT elevated at 251, and alkaline phosphatase elevated at 142. Her albumin was low at 2.9. Her Urinalysis revealed 1+ leukocyte esterase, 20- 30 red blood cells, and 5-10 white blood cells per high-power field. The urine toxicology screen was positive for cocaine. 6. Her EEG done on 10/31/17 revealed a severe encephalopathy and bilateral frontal epileptogenic foci with inter-ictal discharges at times with a large field. 7. The patient's history, neurological examination, laboratory data and imaging studies are most compatible with seizures due to a hypoxic/ischemic cerebral insult and/or cocaine intoxication. 8. She is seizure free - Dilantin has been discontinued but she is still on Keppra. 9. The prognosis for recovery of cerebral function is dismal. Recommendations 1. Continue present management. 2. Continue to treat the patient's infectious process vigorously. 3. Continue Keppra 1 G intravenously every 8 hours. 4. In light of her poor prognosis make decision regarding intensity of care. Denisse Lester M.D., M.S.P.[place]. DENISSE LESTER Nov 11, 2017 14:58
[2017-11-11] MEDS ORDERED: NS 275ml ONE (15:49)
[2017-11-11] MEDS: Dyna-Hex 2% Top Sol 2oz TOPIC SCH (19:55)
[2017-11-12] VITALS (24 sets, daily range): BP systolic 108–162; BP diastolic 58–89
[2017-11-12] MEDS: levETIRAcetam 1,000mg/NS100ml 100 ML IVPB SCH ×3 (01:22→18:07)
[2017-11-12 05:38] LABS: BASOPHILS % (AUTO) 0.6 % (0.0-2.0); EOSINOPHILS % (AUTO) 0.3 % (0.0-3.0); HEMATOCRIT 31.9 % (37.0-47.0); HEMOGLOBIN 10.3 G/DL (12.0-16.0); LYMPHOCYTES % (AUTO) 11.1 % (20.0-45.0); MEAN CORPUSCULAR VOLUME 92 FL (80-99); MONOCYTES % (AUTO) 3.8 % (1.0-10.0); NEUTROPHILS % (AUTO) 84.3 % (45.0-75.0); PLATELET COUNT 503 K/UL (150-450); RED BLOOD COUNT 3.46 M/UL (4.20-5.40); WHITE BLOOD COUNT 13.3 K/UL (4.8-10.8)
[2017-11-12] MEDS: NovoLOG Insulin Flexpen SUBQ SCH ×3 (06:00→18:00)
[2017-11-12] MEDS: dilTIAZem HCl 60mg tab NG SCH ×3 (06:11→21:51)
[2017-11-12 06:51] LABS: ALANINE AMINOTRANSFERASE 109 U/L (12-78); ALBUMIN 2.4 G/DL (3.4-5.0); ALBUMIN/GLOBULIN RATIO 0.6 (1.0-2.7); ALKALINE PHOSPHATASE 84 U/L (46-116); ANION GAP 5 mmol/L (5-15); ASPARTATE AMINO TRANSFERASE 56 U/L (15-37); BILIRUBIN,TOTAL 0.1 MG/DL (0.2-1.0); BLOOD UREA NITROGEN 20 mg/dL (7-18); CALCIUM 8.9 MG/DL (8.5-10.1); CARBON DIOXIDE 32 MMOL/L (21-32); CHLORIDE 107 MMOL/L (98-107); CREATININE 0.7 MG/DL (0.55-1.30); PHOSPHORUS 3.2 MG/DL (2.5-4.9); POTASSIUM 3.6 MMOL/L (3.5-5.1); SODIUM 144 MMOL/L (136-145)
[2017-11-12] MEDS: Pantoprazole Inj IVP SCH (08:32)
[2017-11-12] MEDS: Hydrocortisone 100mg Inj IV SCH ×2 (08:32→18:07)
[2017-11-12] MEDS: Heparin 5000 units/ml inj SUBQ SCH ×2 (08:35→20:53)
--- NOTE | 2017-11-12 08:59 | Infectious Diseases Prog Note ---
Assessment/Plan Assessment/Plan 57 yo female who presented to the ED on 10/30/17 after pulmonary arrest. Sepsis - Probable Asp PNA On Abx 10/30 Sputum Cultures - Predominantly NF - +1 Steno Will hold off Tx of Steno as patient improving 10/31 Urine Cx - NGTD Leukocytosis - WBCs 16 after seizure No Fevers Seizures - Had Seizure on route to ED 10/30/17 and in the ICU as well Drug abuse - Pos for cocaine Arthritis Chronic pain. P: - WBCs increased will reculture Blood, Sputum and Urine - Levofloxacin #/ - To cover Stenotrophomonas as she had new fevers - 11/04 Ceftriaxone #3 - D/C Flagyl #10 for asp PNA - 10/31 Vancomycin #1 - 10/31 Aztreonam - 10/30 SP Ceftriaxone - Monitor CBC and Temps - Vent management per pulm - Poor prognosis We will continue to follow the patient during this hospitalization. Subjective Allergies: Coded Allergies: ASPIRIN (Verified Allergy, Unknown, 10/30/17) PENICILLINS (Verified Allergy, Unknown, 10/30/17) Subjective On 30% FiO2 No Clinical change in mental status Afebrile Objective Vital Signs Last 24 Hour Vital Signs Date Time Temp Pulse Resp B/P (MAP) Pulse Ox O2 Delivery O2 Flow Rate FiO2 11/12/17 07:17 87 13 30 11/12/17 07:00 93 12 136/77 (96) 100 11/12/17 06:11 89 162/78 11/12/17 06:00 89 12 162/78 (106) 100 11/12/17 06:00 30 11/12/17 05:18 81 12 30 11/12/17 05:00 85 12 125/82 (96) 100 11/12/17 04:00 99.4 81 12 121/71 (88) 100 99.4 11/12/17 04:00 81 11/12/17 04:00 30 11/12/17 04:00 Mechanical Ventilator 11/12/17 03:00 86 12 128/65 (86) 100 11/12/17 02:50 100 12 30 11/12/17 02:47 87 10 30 11/12/17 02:00 88 14 142/71 (94) 100 11/12/17 01:00 89 16 121/66 (84) 100 9/22/18 00:42 89 10 30 11/12/17 00:00 30 11/12/17 00:00 95 11/12/17 00:00 Mechanical Ventilator 11/12/17 00:00 99.2 95 16 128/74 (92) 100 99.2 11/11/17 23:00 97 17 134/73 (93) 100 11/11/17 22:47 95 11 30 11/11/17 22:00 96 18 142/73 (96) 100 11/11/17 21:47 101 140/97 11/11/17 21:00 95 19 140/97 (111) 100 11/11/17 20:40 95 18 30 11/11/17 20:00 103 11/11/17 20:00 Mechanical Ventilator 11/11/17 20:00 30 11/11/17 20:00 99.4 103 20 142/68 (92) 100 99.4 11/11/17 19:00 104 20 136/72 (93) 100 11/11/17 18:50 106 19 30 11/11/17 18:00 100 19 138/76 (96) 100 11/11/17 17:10 102 20 30 11/11/17 17:00 103 19 131/64 (86) 100 11/11/17 16:00 Mechanical Ventilator 11/11/17 16:00 30 11/11/17 16:00 103 19 122/65 (84) 100 11/11/17 16:00 103 11/11/17 15:00 105 19 122/63 (82) 100 11/11/17 14:51 100 115/71 11/11/17 14:41 103 20 30 11/11/17 14:00 102 21 123/64 (83) 100 11/11/17 13:00 100 19 115/71 (86) 100 11/11/17 12:45 99 16 30 11/11/17 12:00 100 19 161/79 (106) 100 11/11/17 12:00 102 11/11/17 12:00 30 11/11/17 11:59 Mechanical Ventilator 11/11/17 11:01 98.6 11/11/17 11:00 104 19 137/78 (97) 100 11/11/17 10:44 105 20 30 11/11/17 10:31 98.6 11/11/17 10:00 104 19 148/76 (100) 100 9/21/18 09:00 114 17 162/80 (107) 100 Height (Feet): 5 Height (Inches): 2.00 Weight (Pounds): 104 Objective Gen: NAD, On Vent 30% O2, HEENT: NCAT, MMM, eye open at times not tracking LUNGS: Mechanical breath sounds, No Wheezing CARDS: RRR, S1, S2 ABD: Soft, NT, ND, + BS NEURO: Not responsive Microbiology Date/Time Source Procedure Growth Status 11/11/17 13:00 Sputum Gram Stain - Final Resulted 11/11/17 13:00 Sputum Sputum Culture Pending Resulted 11/11/17 13:00 Urine,Clean Catch Urine Culture - Preliminary NO GROWTH Resulted Laboratory Tests Test 11/11/17 13:00 11/12/17 04:00 Urine Color Yellow Urine Appearance Slightly cloudy Urine pH 5 (4.5-8.0) Urine Specific [place] 1.015 (1.005-1.035) Urine Protein 2+ (NEGATIVE) H Urine Glucose (UA) Negative (NEGATIVE) Urine Ketones Negative (NEGATIVE) Urine Blood 4+ (NEGATIVE) H Urine Nitrite Negative (NEGATIVE) Urine Bilirubin Negative (NEGATIVE) Urine Urobilinogen Normal MG/DL (0.0-1.0) Urine Leukocyte Esterase 3+ (NEGATIVE) H Urine RBC 5-10 /HPF (0 - 2) H Urine WBC 20-30 /HPF (0 - 2) H Urine Squamous Epithelial Cells Few /LPF (NONE/OCC) Urine Bacteria Few /HPF (NONE) Urine Yeast Few /HPF (NONE) H White Blood Count 13.3 K/UL (4.8-10.8) H Red Blood Count 3.46 M/UL (4.20-5.40) L Hemoglobin 10.3 G/DL (12.0-16.0) L Hematocrit 31.9 % (37.0-47.0) L Mean Corpuscular Volume 92 FL (80-99) Mean Corpuscular Hemoglobin 29.8 PG (27.0-31.0) Mean Corpuscular Hemoglobin Concent 32.4 G/DL (32.0-36.0) Red Cell Distribution Width 13.0 % (11.6-14.8) Platelet Count 503 K/UL (150-450) H Mean Platelet Volume 5.3 FL (6.5-10.1) L Neutrophils (%) (Auto) 84.3 % (45.0-75.0) H Lymphocytes (%) (Auto) 11.1 % (20.0-45.0) L Monocytes (%) (Auto) 3.8 % (1.0-10.0) Eosinophils (%) (Auto) 0.3 % (0.0-3.0) Basophils (%) (Auto) 0.6 % (0.0-2.0) Sodium Level 144 MMOL/L (136-145) Potassium Level 3.6 MMOL/L (3.5-5.1) Chloride Level 107 MMOL/L (98-107) Carbon Dioxide Level 32 MMOL/L (21-32) Anion Gap 5 mmol/L (5-15) Blood Urea Nitrogen 20 mg/dL (7-18) H Creatinine 0.7 MG/DL (0.55-1.30) Estimat Glomerular Filtration Rate > 60 mL/min (>60) Glucose Level 112 MG/DL (74-106) H Calcium Level 8.9 MG/DL (8.5-10.1) Phosphorus Level 3.2 MG/DL (2.5-4.9) Magnesium Level 2.0 MG/DL (1.8-2.4) Total Bilirubin 0.1 MG/DL (0.2-1.0) L Aspartate Amino Transf (AST/SGOT) 56 U/L (15-37) H Alanine Aminotransferase (ALT/SGPT) 109 U/L (12-78) H Alkaline Phosphatase 84 U/L (46-116) Total Protein 6.6 G/DL (6.4-8.2) Albumin 2.4 G/DL (3.4-5.0) L Globulin 4.2 g/dL Albumin/Globulin Ratio 0.6 (1.0-2.7) L Current Medications Medications (Trade) Dose Ordered Sig/Yung Route PRN Reason Start Time Stop Time Status Last Admin Dose Admin Acetaminophen (Tylenol) 650 mg Q4H PRN RECTAL Prn Headache/Temp > 101 10/30/17 16:45 11/29/17 16:44 10/31/17 21:24 Acetaminophen (Tylenol) 650 mg Q6H PRN NG Mild Pain/Temp > 100.5 11/03/17 22:00 12/03/17 21:59 11/11/17 10:31 Chlorhexidine Gluconate (Sunita-Hex 2%) 1 applic DAILY@2000 TOPIC 10/30/17 20:00 11/29/17 19:59 11/11/17 19:55 Clonidine HCl (Catapres Tab) 0.1 mg Q4H PRN ORAL for SBP >160 11/01/17 13:00 12/01/17 12:59 11/10/17 05:02 Dextrose (Dextrose 50%) 25 ml Q1H PRN IV Hypoglycemia 11/11/17 15:00 12/03/17 17:59 Dextrose (Dextrose 50%) 50 ml Q1H PRN IV Hypoglycemia 11/11/17 15:00 12/03/17 17:59 Diltiazem HCl (Cardizem) 60 mg EVERY 8 HOURS NG 11/05/17 22:00 12/05/17 21:59 11/12/17 06:11 Haloperidol Lactate 5 mg/ Dextrose 56 ml @ 112 mls/hr Q1H PRN IVPB Agitation 11/02/17 10:00 12/02/17 09:59 11/02/17 12:53 Heparin Sodium (Porcine) (Heparin 5000 units/ml) 5,000 units EVERY 12 HOURS SUBQ 10/30/17 09:00 11/29/17 08:59 11/12/17 08:35 Hydrocortisone (Solu-CORTEF) 25 mg BID IV 11/08/17 09:00 11/30/17 18:29 11/12/17 08:32 Insulin Aspart (NovoLOG) Q6HR SUBQ 11/08/17 12:00 12/03/17 19:59 11/10/17 12:31 Levetiracetam 100 ml @ 400 mls/hr Q8H IVPB 10/30/17 17:00 11/29/17 16:59 11/12/17 08:33 Levofloxacin (Levaquin) 750 mg Q48H GT 11/09/17 09:00 11/14/17 23:00 11/11/17 10:29 Lorazepam (Ativan 2mg/ml 1ml) 2 mg Q2H PRN IV For Anxiety 11/08/17 08:00 11/15/17 07:59 11/08/17 19:37 Metronidazole 100 ml @ 100 mls/hr Q8HR IVPB 11/11/17 09:30 11/18/17 09:29 11/12/17 06:11 Nitroglycerin (Ntg) 0.4 mg Q5M PRN SL Prn Chest Pain 10/30/17 08:00 11/29/17 07:59 Ondansetron HCl (Zofran) 4 mg Q6H PRN IVP Nausea & Vomiting 10/30/17 08:00 11/29/17 07:59 Pantoprazole (Protonix) 40 mg DAILY IVP 11/02/17 09:00 12/02/17 08:59 11/12/17 08:32 Gutierrez Sifuentes MD Nov 12, 2017 08:59
--- NOTE | 2017-11-12 09:26 | General Progress Note ---
Assessment/Plan Problem List: (1) Renal insufficiency ICD Codes: N28.9 - Disorder of kidney and ureter, unspecified SNOMED: 440240164, 007836265 (2) UTI (urinary tract infection) ICD Codes: N39.0 - Urinary tract infection, site not specified SNOMED: 01766024 (3) Seizure ICD Codes: R56.9 - Unspecified convulsions SNOMED: 06403561 (4) HTN (hypertension) ICD Codes: I10 - Essential (primary) hypertension SNOMED: 16859155 (5) Diabetes ICD Codes: E11.9 - Type 2 diabetes mellitus without complications SNOMED: 62862770 Status: unchanged Assessment/Plan vent abx detox neph f/u wean vent cbc bmp am Subjective Constitutional: Reports: weakness Allergies: Coded Allergies: ASPIRIN (Verified Allergy, Unknown, 10/30/17) PENICILLINS (Verified Allergy, Unknown, 10/30/17) All Systems: reviewed and negative except above Subjective intubated sedated in icu ng Objective Last 24 Hour Vital Signs Date Time Temp Pulse Resp B/P (MAP) Pulse Ox O2 Delivery O2 Flow Rate FiO2 11/12/17 09:22 88 14 30 11/12/17 07:17 87 13 30 11/12/17 07:00 93 12 136/77 (96) 100 11/12/17 06:11 89 162/78 11/12/17 06:00 89 12 162/78 (106) 100 11/12/17 06:00 30 11/12/17 05:18 81 12 30 11/12/17 05:00 85 12 125/82 (96) 100 11/12/17 04:00 99.4 81 12 121/71 (88) 100 99.4 11/12/17 04:00 81 11/12/17 04:00 30 11/12/17 04:00 Mechanical Ventilator 11/12/17 03:00 86 12 128/65 (86) 100 11/12/17 02:50 100 12 30 11/12/17 02:47 87 10 30 11/12/17 02:00 88 14 142/71 (94) 100 11/12/17 01:00 89 16 121/66 (84) 100 11/12/17 00:42 89 10 30 11/12/17 00:00 30 11/12/17 00:00 95 11/12/17 00:00 Mechanical Ventilator 11/12/17 00:00 99.2 95 16 128/74 (92) 100 99.2 11/11/17 23:00 97 17 134/73 (93) 100 11/11/17 22:47 95 11 30 11/11/17 22:00 96 18 142/73 (96) 100 11/11/17 21:47 101 140/97 11/11/17 21:00 95 19 140/97 (111) 100 11/11/17 20:40 95 18 30 11/11/17 20:00 103 11/11/17 20:00 Mechanical Ventilator 11/11/17 20:00 30 11/11/17 20:00 99.4 103 20 142/68 (92) 100 99.4 11/11/17 19:00 104 20 136/72 (93) 100 11/11/17 18:50 106 19 30 11/11/17 18:00 100 19 138/76 (96) 100 11/11/17 17:10 102 20 30 11/11/17 17:00 103 19 131/64 (86) 100 11/11/17 16:00 Mechanical Ventilator 11/11/17 16:00 30 11/11/17 16:00 103 19 122/65 (84) 100 11/11/17 16:00 103 11/11/17 15:00 105 19 122/63 (82) 100 11/11/17 14:51 100 115/71 11/11/17 14:41 103 20 30 11/11/17 14:00 102 21 123/64 (83) 100 11/11/17 13:00 100 19 115/71 (86) 100 11/11/17 12:45 99 16 30 11/11/17 12:00 100 19 161/79 (106) 100 11/11/17 12:00 102 11/11/17 12:00 30 11/11/17 11:59 Mechanical Ventilator 11/11/17 11:01 98.6 11/11/17 11:00 104 19 137/78 (97) 100 11/11/17 10:44 105 20 30 11/11/17 10:31 98.6 11/11/17 10:00 104 19 148/76 (100) 100 Intake and Output 11/11/17 11/12/17 19:00 07:00 Intake Total 1085 ml 900 ml Output Total 770 ml 570 ml Balance 315 ml 330 ml Free Water 60 ml IV Total 400 ml 300 ml Tube Feeding 585 ml 540 ml Other 100 ml Output Urine Total 770 ml 570 ml # Bowel Movements 4 5 Laboratory Tests 11/11/17 13:00: Urine Color Yellow, Urine Appearance Slightly cloudy, Urine pH 5, Urine Specific [place] 1.015, Urine Protein 2+H, Urine Glucose (UA) Negative, Urine Ketones Negative, Urine Blood 4+H, Urine Nitrite Negative, Urine Bilirubin Negative, Urine Urobilinogen Normal, Urine Leukocyte Esterase 3+H, Urine RBC 5- 10H, Urine WBC 20-30H, Urine Squamous Epithelial Cells Few, Urine Bacteria Few, Urine Yeast FewH 11/12/17 04:00: White Blood Count 13.3H, Red Blood Count 3.46L, Hemoglobin 10.3L, Hematocrit 31.9L, Mean Corpuscular Volume 92, Mean Corpuscular Hemoglobin 29.8, Mean Corpuscular Hemoglobin Concent 32.4, Red Cell Distribution Width 13.0, Platelet Count 503H, Mean Platelet Volume 5.3L, Neutrophils (%) (Auto) 84.3H, Lymphocytes (%) (Auto) 11.1L, Monocytes (%) (Auto) 3.8, Eosinophils (%) (Auto) 0.3, Basophils (%) (Auto) 0.6, Sodium Level 144, Potassium Level 3.6, Chloride Level 107, Carbon Dioxide Level 32, Anion Gap 5, Blood Urea Nitrogen 20H, Creatinine 0.7, Estimat Glomerular Filtration Rate > 60, Glucose Level 112H, Calcium Level 8.9, Phosphorus Level 3.2, Magnesium Level 2.0, Total Bilirubin 0.1L, Aspartate Amino Transf (AST/SGOT) 56H, Alanine Aminotransferase (ALT/SGPT ) 109H, Alkaline Phosphatase 84, Total Protein 6.6, Albumin 2.4L, Globulin 4.2, Albumin/Globulin Ratio 0.6L Height (Feet): 5 Height (Inches): 2.00 Weight (Pounds): 104 General Appearance: lethargic EENT: normal ENT inspection Neck: normal alignment Cardiovascular: normal peripheral pulses, normal rate, regular rhythm Respiratory/Chest: chest wall non-tender, decreased breath sounds Abdomen: normal bowel sounds, non tender, soft Extremities: normal inspection Edema: no edema noted Arm (L), no edema noted Arm (R), no edema noted Leg (L), no edema noted Leg (R), no edema noted Pedal (L), no edema noted Pedal (R), no edema noted Generalized Neurologic: motor weakness Skin: normal pigmentation, warm/dry Josias Skinner DO Nov 12, 2017 09:26
--- NOTE | 2017-11-12 10:28 | General Progress Note ---
Assessment/Plan Problem List: (1) Hypoglycemia ICD Codes: E16.2 - Hypoglycemia, unspecified SNOMED: 196778998 (2) SLE (systemic lupus erythematosus) ICD Codes: M32.9 - Systemic lupus erythematosus, unspecified SNOMED: 26732547 (3) Cocaine abuse ICD Codes: F14.10 - Cocaine abuse, uncomplicated SNOMED: 24914402 (4) Elevated transaminase measurement ICD Codes: R74.0 - Nonspecific elevation of levels of transaminase and lactic acid dehydrogenase [LDH] SNOMED: 915680253, 022596119 (5) Diabetes ICD Codes: E11.9 - Type 2 diabetes mellitus without complications SNOMED: 15492911 (6) Pneumothorax on right ICD Codes: J93.9 - Pneumothorax, unspecified SNOMED: 357379283 (7) Seizure ICD Codes: R56.9 - Unspecified convulsions SNOMED: 80421346 Assessment/Plan - continue SoluCortef 25 mg bid - continue BG monitoring every 6 hours - hypoglycemia protocol - NISS low dose Subjective ROS Limited/Unobtainable: Yes Allergies: Coded Allergies: ASPIRIN (Verified Allergy, Unknown, 10/30/17) PENICILLINS (Verified Allergy, Unknown, 10/30/17) Subjective in ICU on vent on TF Objective Last 24 Hour Vital Signs Date Time Temp Pulse Resp B/P (MAP) Pulse Ox O2 Delivery O2 Flow Rate FiO2 11/12/17 10:00 89 15 113/72 (86) 100 11/12/17 09:22 88 14 30 11/12/17 09:20 30 11/12/17 09:00 93 13 147/84 (105) 100 11/12/17 08:00 Mechanical Ventilator 11/12/17 08:00 98.3 93 16 133/71 (91) 99 98.3 11/12/17 07:17 87 13 30 11/12/17 07:00 93 12 136/77 (96) 100 11/12/17 06:11 89 162/78 11/12/17 06:00 89 12 162/78 (106) 100 11/12/17 06:00 30 11/12/17 05:18 81 12 30 11/12/17 05:00 85 12 125/82 (96) 100 11/12/17 04:00 99.4 81 12 121/71 (88) 100 99.4 9/22/18 04:00 81 11/12/17 04:00 30 11/12/17 04:00 Mechanical Ventilator 11/12/17 03:00 86 12 128/65 (86) 100 11/12/17 02:50 100 12 30 11/12/17 02:47 87 10 30 11/12/17 02:00 88 14 142/71 (94) 100 11/12/17 01:00 89 16 121/66 (84) 100 11/12/17 00:42 89 10 30 11/12/17 00:00 30 11/12/17 00:00 95 11/12/17 00:00 Mechanical Ventilator 11/12/17 00:00 99.2 95 16 128/74 (92) 100 99.2 11/11/17 23:00 97 17 134/73 (93) 100 11/11/17 22:47 95 11 30 11/11/17 22:00 96 18 142/73 (96) 100 11/11/17 21:47 101 140/97 11/11/17 21:00 95 19 140/97 (111) 100 11/11/17 20:40 95 18 30 11/11/17 20:00 103 11/11/17 20:00 Mechanical Ventilator 11/11/17 20:00 30 11/11/17 20:00 99.4 103 20 142/68 (92) 100 99.4 11/11/17 19:00 104 20 136/72 (93) 100 11/11/17 18:50 106 19 30 11/11/17 18:00 100 19 138/76 (96) 100 11/11/17 17:10 102 20 30 11/11/17 17:00 103 19 131/64 (86) 100 11/11/17 16:00 Mechanical Ventilator 11/11/17 16:00 30 11/11/17 16:00 103 19 122/65 (84) 100 11/11/17 16:00 103 11/11/17 15:00 105 19 122/63 (82) 100 11/11/17 14:51 100 115/71 11/11/17 14:41 103 20 30 11/11/17 14:00 102 21 123/64 (83) 100 11/11/17 13:00 100 19 115/71 (86) 100 11/11/17 12:45 99 16 30 11/11/17 12:00 100 19 161/79 (106) 100 11/11/17 12:00 102 11/11/17 12:00 30 11/11/17 11:59 Mechanical Ventilator 11/11/17 11:01 98.6 11/11/17 11:00 104 19 137/78 (97) 100 11/11/17 10:44 105 20 30 11/11/17 10:31 98.6 Intake and Output 11/11/17 11/12/17 19:00 07:00 Intake Total 1085 ml 900 ml Output Total 770 ml 570 ml Balance 315 ml 330 ml Free Water 60 ml IV Total 400 ml 300 ml Tube Feeding 585 ml 540 ml Other 100 ml Output Urine Total 770 ml 570 ml # Bowel Movements 4 5 Laboratory Tests 11/11/17 13:00: Urine Color Yellow, Urine Appearance Slightly cloudy, Urine pH 5, Urine Specific [place] 1.015, Urine Protein 2+H, Urine Glucose (UA) Negative, Urine Ketones Negative, Urine Blood 4+H, Urine Nitrite Negative, Urine Bilirubin Negative, Urine Urobilinogen Normal, Urine Leukocyte Esterase 3+H, Urine RBC 5- 10H, Urine WBC 20-30H, Urine Squamous Epithelial Cells Few, Urine Bacteria Few, Urine Yeast FewH 11/12/17 04:00: White Blood Count 13.3H, Red Blood Count 3.46L, Hemoglobin 10.3L, Hematocrit 31.9L, Mean Corpuscular Volume 92, Mean Corpuscular Hemoglobin 29.8, Mean Corpuscular Hemoglobin Concent 32.4, Red Cell Distribution Width 13.0, Platelet Count 503H, Mean Platelet Volume 5.3L, Neutrophils (%) (Auto) 84.3H, Lymphocytes (%) (Auto) 11.1L, Monocytes (%) (Auto) 3.8, Eosinophils (%) (Auto) 0.3, Basophils (%) (Auto) 0.6, Sodium Level 144, Potassium Level 3.6, Chloride Level 107, Carbon Dioxide Level 32, Anion Gap 5, Blood Urea Nitrogen 20H, Creatinine 0.7, Estimat Glomerular Filtration Rate > 60, Glucose Level 112H, Calcium Level 8.9, Phosphorus Level 3.2, Magnesium Level 2.0, Total Bilirubin 0.1L, Aspartate Amino Transf (AST/SGOT) 56H, Alanine Aminotransferase (ALT/SGPT ) 109H, Alkaline Phosphatase 84, Total Protein 6.6, Albumin 2.4L, Globulin 4.2, Albumin/Globulin Ratio 0.6L Height (Feet): 5 Height (Inches): 2.00 Weight (Pounds): 104 General Appearance: moderate distress, other - comatose EENT: other - ETT Neck: normal alignment Cardiovascular: normal peripheral pulses Respiratory/Chest: decreased breath sounds Abdomen: normal bowel sounds Extremities: other - decerebrate posture Edema: no edema noted Arm (L), no edema noted Arm (R), no edema noted Leg (L), no edema noted Leg (R), no edema noted Pedal (L), no edema noted Pedal (R), no edema noted Generalized Objective Current Medications Medications (Trade) Dose Ordered Sig/Yung Route PRN Reason Start Time Stop Time Status Last Admin Dose Admin Acetaminophen (Tylenol) 650 mg Q4H PRN RECTAL Prn Headache/Temp > 101 10/30/17 16:45 11/29/17 16:44 10/31/17 21:24 Acetaminophen (Tylenol) 650 mg Q6H PRN NG Mild Pain/Temp > 100.5 11/03/17 22:00 12/03/17 21:59 11/05/17 19:09 Chlorhexidine Gluconate (Sunita-Hex 2%) 1 applic DAILY@2000 TOPIC 10/30/17 20:00 11/29/17 19:59 11/08/17 19:39 Clonidine HCl (Catapres Tab) 0.1 mg Q4H PRN ORAL for SBP >160 11/01/17 13:00 12/01/17 12:59 11/06/17 01:16 Dextrose (Dextrose 50%) 25 ml STAT PRN IV Hypoglycemia 11/03/17 18:00 12/03/17 17:59 Dextrose (Dextrose 50%) 50 ml STAT PRN IV Hypoglycemia 11/03/17 18:00 12/03/17 17:59 Diltiazem HCl (Cardizem) 60 mg EVERY 8 HOURS NG 11/05/17 22:00 12/05/17 21:59 11/09/17 05:21 Haloperidol Lactate 5 mg/ Dextrose 56 ml @ 112 mls/hr Q1H PRN IVPB Agitation 11/02/17 10:00 12/02/17 09:59 11/02/17 12:53 Heparin Sodium (Porcine) (Heparin 5000 units/ml) 5,000 units EVERY 12 HOURS SUBQ 10/30/17 09:00 11/29/17 08:59 11/08/17 22:04 Hydrocortisone (Solu-CORTEF) 25 mg BID IV 11/08/17 09:00 11/30/17 18:29 11/08/17 18:03 Insulin Aspart (NovoLOG) Q6HR SUBQ 11/08/17 12:00 12/03/17 19:59 11/08/17 18:17 Levetiracetam 100 ml @ 400 mls/hr Q8H IVPB 10/30/17 17:00 11/29/17 16:59 11/09/17 00:14 Levofloxacin (Levaquin) 750 mg Q48H GT 11/09/17 09:00 11/14/17 23:00 Lorazepam (Ativan 2mg/ml 1ml) 2 mg Q2H PRN IV For Anxiety 11/08/17 08:00 11/15/17 07:59 11/08/17 19:37 Metronidazole (Flagyl) 500 mg Q8HR GT 11/08/17 11:30 11/10/17 23:00 11/09/17 05:20 Nitroglycerin (Ntg) 0.4 mg Q5M PRN SL Prn Chest Pain 10/30/17 08:00 11/29/17 07:59 Ondansetron HCl (Zofran) 4 mg Q6H PRN IVP Nausea & Vomiting 10/30/17 08:00 11/29/17 07:59 Pantoprazole (Protonix) 40 mg DAILY IVP 11/02/17 09:00 12/02/17 08:59 11/08/17 08:31 Phenytoin 100 mg/ Sodium Chloride 57 ml @ 114 mls/hr [id number] PHENYTOIN IVPB 10/30/17 16:00 11/29/17 15:59 11/09/17 00:14 Item Value Date Time Bedside Blood Glucose 96 mg/dl 11/09/17 0600 Bedside Blood Glucose 101 mg/dl 11/09/17 0000 Bedside Blood Glucose 114 mg/dl 11/08/17 1817 Bedside Blood Glucose 119 mg/dl 11/08/17 1203 Bedside Blood Glucose 108 mg/dl 11/08/17 0800 Salvador Garcia MD Nov 12, 2017 10:28
[2017-11-12] MEDS ORDERED: NS 275ml ONE (13:21)
[2017-11-12] MEDS ORDERED: Tubing IV Secondary IV ONE (13:21)
[2017-11-12] MEDS ORDERED: Morphine Sulfate 4mg/ml Inj (IV USE ONLY) IVP PRN ×2 (15:30→15:55)
--- NOTE | 2017-11-12 16:28 | Neurology Progress Note ---
Interim History Interim History Interim History Ms. Robertson continues to be comatose. She does however exhibit spontaneous eye opening and closing. She is still exhibiting decerebrate posturing. She has had no seizures or seizure like phenomena. She continues to be artificially ventilated. There has been no improvement in her neurologic state. Review of Systems Neuro Review of Systems Unable to obtain. Objective Physical Exam Last Vital Signs Date Time Temp Pulse Resp B/P (MAP) Pulse Ox O2 Delivery O2 Flow Rate FiO2 11/12/17 15:00 99.2 92 16 150/70 (96) 100 99.2 11/12/17 12:00 Mechanical Ventilator 11/12/17 09:22 30 Laboratory Tests Test 11/12/17 04:00 11/12/17 10:39 White Blood Count 13.3 K/UL (4.8-10.8) H Red Blood Count 3.46 M/UL (4.20-5.40) L Hemoglobin 10.3 G/DL (12.0-16.0) L Hematocrit 31.9 % (37.0-47.0) L Mean Corpuscular Volume 92 FL (80-99) Mean Corpuscular Hemoglobin 29.8 PG (27.0-31.0) Mean Corpuscular Hemoglobin Concent 32.4 G/DL (32.0-36.0) Red Cell Distribution Width 13.0 % (11.6-14.8) Platelet Count 503 K/UL (150-450) H Mean Platelet Volume 5.3 FL (6.5-10.1) L Neutrophils (%) (Auto) 84.3 % (45.0-75.0) H Lymphocytes (%) (Auto) 11.1 % (20.0-45.0) L Monocytes (%) (Auto) 3.8 % (1.0-10.0) Eosinophils (%) (Auto) 0.3 % (0.0-3.0) Basophils (%) (Auto) 0.6 % (0.0-2.0) Sodium Level 144 MMOL/L (136-145) Potassium Level 3.6 MMOL/L (3.5-5.1) Chloride Level 107 MMOL/L (98-107) Carbon Dioxide Level 32 MMOL/L (21-32) Anion Gap 5 mmol/L (5-15) Blood Urea Nitrogen 20 mg/dL (7-18) H Creatinine 0.7 MG/DL (0.55-1.30) Estimat Glomerular Filtration Rate > 60 mL/min (>60) Glucose Level 112 MG/DL (74-106) H Calcium Level 8.9 MG/DL (8.5-10.1) Phosphorus Level 3.2 MG/DL (2.5-4.9) Magnesium Level 2.0 MG/DL (1.8-2.4) Total Bilirubin 0.1 MG/DL (0.2-1.0) L Aspartate Amino Transf (AST/SGOT) 56 U/L (15-37) H Alanine Aminotransferase (ALT/SGPT) 109 U/L (12-78) H Alkaline Phosphatase 84 U/L (46-116) Total Protein 6.6 G/DL (6.4-8.2) Albumin 2.4 G/DL (3.4-5.0) L Globulin 4.2 g/dL Albumin/Globulin Ratio 0.6 (1.0-2.7) L Arterial Blood pH 7.441 (7.350-7.450) Arterial Blood Partial Pressure CO2 46.3 mmHg (35.0-45.0) H Arterial Blood Partial Pressure O2 95.9 mmHg (75.0-100.0) Arterial Blood HCO3 30.8 mmol/L (22.0-26.0) H Arterial Blood Oxygen Saturation 97.1 % (92.0-98.0) Arterial Blood Base Excess 5.9 Aj Test Positive Neurologic Exam Objective PHYSICAL EXAMINATION: GENERAL: She is a well-developed, cachectic, lean, black lady, lying in an ICU bed, in no acute distress, connected to a ventilator via an orotracheal tube. HEAD: Normocephalic and atraumatic. EENT: Examination benign. NECK: No neck rigidity was observed. NEUROLOGIC EXAMINATION: MENTAL STATUS EXAMINATION: She was comatose and did not respond even to deep painful stimuli. She was decerebrating spontaneously and on upper extremity painful stimuli. Further mental status testing was impossible. SPEECH: Could not be tested. LANGUAGE: Could not be tested. CRANIAL NERVE EXAMINATION: II: She did not blink to threat. III, IV & : The external ocular movements were present on oculocephalic maneuvers. The pupils were 3 mm in diameter and reactive sluggishly to light. V & VII: The corneal reflexes were present, but significantly diminished. VIII: She did not respond to sounds and had no nystagmus. IX & X: The gag reflex was present but delayed on manipulating the endotracheal tube. XI: The sternocleidomastoids and trapezii could not be tested. XII: Could not be tested. MOTOR SYSTEM: The tone was increased in all four extremities with severe spasticity. Examination of muscle mass revealed generalized muscle wasting. Examination of power was impossible to perform because even on applying deep painful stimuli, no purposeful movements were seen. SENSORY EXAMINATION: She did not respond even to deep pain other than decerebration in the upper extremities and reflex withdrawal in the lower extremities. REFLEXES: 1+ and bilaterally symmetrical at the biceps, triceps, brachioradialis , and knees. 0 at both ankles. The plantar responses were extensor bilaterally. COORDINATION, STANCE & GAIT: Could not be tested. Impression/Recommendations Diagnostic Impression 1. Ms. Polly Robertson is a 57-year-old, right-handed, black lady, who does have a past history of polysubstance abuse with her recent drug of choice being cocaine, a seizure disorder, and chronic pain, who was found down in her bathroom at home with vomitus in her mouth. She then was noted to stop breathing and this progressed to cardiac failure. The paramedics were called in and she had to have advanced cardiac life support before she could be resuscitated. She was then transported to the [facility] emergency room and on the way here she was noted to have a generalized seizure. Since then, she has had multiple seizures, however, at this point in time, they are well controlled on the present regimen. 2. She continues to be in a comatose state. She does however exhibit spontaneous eye opening and closing. She is still exhibiting decerebrate posturing. She has had no seizures or seizure like phenomena. She continues to be artificially ventilated. There has been no improvement in her neurologic state. 3. On neurological examination, at this time, she is comatose and does not respond even to deep pain other than decerebration in the upper extremities and reflex withdrawal in the lower extremities. She exhibits spontaneous decerebration. She does not demonstrate any focal or lateralizing findings. 4. The CT scan of the brain without contrast is benign for acute pathology. 5. Her latest laboratory data on my initial evaluation revealed that her WBC count was elevated to 17,600 with predominantly 79% being neutrophils and 15% being lymphocytes and monocytes. Her arterial blood gas revealed pCO2 low at 21.2, pO2 at 154, and pH of 7.49. Her chemistry panel revealed a creatinine elevated to 1.7. Her AST was elevated at 255, ALT elevated at 251, and alkaline phosphatase elevated at 142. Her albumin was low at 2.9. Her Urinalysis revealed 1+ leukocyte esterase, 20- 30 red blood cells, and 5-10 white blood cells per high-power field. The urine toxicology screen was positive for cocaine. 6. Her EEG done on 10/31/17 revealed a severe encephalopathy and bilateral frontal epileptogenic foci with inter-ictal discharges at times with a large field. 7. The patient's history, neurological examination, laboratory data and imaging studies are most compatible with seizures due to a hypoxic/ischemic cerebral insult and/or cocaine intoxication. 8. She is seizure free on Keppra. 9. The prognosis for recovery of cerebral function is dismal. Recommendations 1. Continue present management. 2. Continue to treat the patient's infectious process vigorously. 3. Continue Keppra 1 G intravenously every 8 hours. 4. In light of her poor prognosis make decision regarding intensity of care. Denisse Lester M.D., M.S.[facility]. DENISSE LESTER Nov 12, 2017 16:28
[2017-11-12] MEDS: Dyna-Hex 2% Top Sol 2oz TOPIC SCH (19:50)
[2017-11-13] VITALS (11 sets, daily range): BP systolic 113–164; BP diastolic 54–88
[2017-11-13] MEDS: levETIRAcetam 1,000mg/NS100ml 100 ML IVPB SCH ×3 (00:53→16:18)
[2017-11-13 05:15] LABS: BASOPHILS % (AUTO) 0.8 % (0.0-2.0); EOSINOPHILS % (AUTO) 0.5 % (0.0-3.0); HEMOGLOBIN 10.2 G/DL (12.0-16.0); LYMPHOCYTES % (AUTO) 23.6 % (20.0-45.0); MEAN CORPUSCULAR VOLUME 94 FL (80-99); MONOCYTES % (AUTO) 6.7 % (1.0-10.0); NEUTROPHILS % (AUTO) 68.4 % (45.0-75.0); PLATELET COUNT 518 K/UL (150-450); RED BLOOD COUNT 3.32 M/UL (4.20-5.40); RED CELL DISTRIBUTION WIDTH 13.7 % (11.6-14.8); WHITE BLOOD COUNT 14.1 K/UL (4.8-10.8)
[2017-11-13] MEDS ORDERED: Nitroglycerin Subl 0.4mg tab SL PRN (05:20)
[2017-11-13] MEDS ORDERED: Acetaminophen 650mg/20.3ml NG PRN (05:36)
[2017-11-13] MEDS ORDERED: Acetaminophen 650 MG SUPP RECTAL PRN (05:36)
[2017-11-13] MEDS: dilTIAZem HCl 60mg tab NG SCH ×3 (05:48→21:11)
[2017-11-13] MEDS: NovoLOG Insulin Flexpen SUBQ SCH ×4 (05:48→18:00)
[2017-11-13 05:52] LABS: ANION GAP 4 mmol/L (5-15); BLOOD UREA NITROGEN 27 mg/dL (7-18); CALCIUM 8.9 MG/DL (8.5-10.1); CARBON DIOXIDE 33 MMOL/L (21-32); CHLORIDE 109 MMOL/L (98-107); CREATININE 0.7 MG/DL (0.55-1.30); POTASSIUM 3.4 MMOL/L (3.5-5.1); SODIUM 146 MMOL/L (136-145)
[2017-11-13] MEDS ORDERED: LORazepam Inj 2mg/ml 1ml IV PRN (06:00)
[2017-11-13] MEDS ORDERED: Morphine Sulfate 4mg/ml Inj (IV USE ONLY) IVP PRN (06:00)
--- NOTE | 2017-11-13 08:20 | General Progress Note ---
Assessment/Plan Problem List: (1) Renal insufficiency ICD Codes: N28.9 - Disorder of kidney and ureter, unspecified SNOMED: 082947798, 388321837 (2) UTI (urinary tract infection) ICD Codes: N39.0 - Urinary tract infection, site not specified SNOMED: 58958052 (3) Seizure ICD Codes: R56.9 - Unspecified convulsions SNOMED: 61324297 (4) HTN (hypertension) ICD Codes: I10 - Essential (primary) hypertension SNOMED: 60048266 (5) Diabetes ICD Codes: E11.9 - Type 2 diabetes mellitus without complications SNOMED: 62460189 Status: unchanged Assessment/Plan vent abx detox neph f/u wean vent cbc bmp am Subjective Constitutional: Reports: weakness Allergies: Coded Allergies: ASPIRIN (Verified Allergy, Unknown, 10/30/17) PENICILLINS (Verified Allergy, Unknown, 10/30/17) All Systems: reviewed and negative except above Subjective o2 nc ng lethargic Objective Last 24 Hour Vital Signs Date Time Temp Pulse Resp B/P (MAP) Pulse Ox O2 Delivery O2 Flow Rate FiO2 11/13/17 06:00 83 18 122/79 (93) 100 11/13/17 05:48 81 122/59 11/13/17 05:00 91 17 164/63 (96) 100 11/13/17 05:00 Nasal Cannula 3.0 Nasal Cannula 3.0 11/13/17 04:00 Nasal Cannula 3.0 Nasal Cannula 3.0 11/13/17 04:00 98.9 79 16 114/54 (74) 100 98.9 11/13/17 04:00 79 11/13/17 03:00 80 15 113/59 (77) 100 11/13/17 02:00 83 17 132/82 (99) 100 11/13/17 01:00 82 17 122/71 (88) 100 11/13/17 00:00 Nasal Cannula 3.0 Nasal Cannula 3.0 11/13/17 00:00 83 11/13/17 00:00 98.8 83 18 127/68 (87) 100 98.8 11/12/17 23:00 97 18 144/79 (100) 100 11/12/17 22:00 95 18 146/71 (96) 100 11/12/17 21:51 96 142/71 11/12/17 21:00 97 18 142/71 (94) 100 11/12/17 20:00 Nasal Cannula 3.0 Nasal Cannula 3.0 11/12/17 20:00 99.3 91 24 139/89 (106) 100 99.3 11/12/17 20:00 91 11/12/17 19:27 100 Nasal Cannula 3.0 32 11/12/17 19:27 Nasal Cannula 3.0 32 11/12/17 19:00 96 18 145/70 (95) 100 11/12/17 18:00 97 20 138/71 (93) 100 11/12/17 17:54 Nasal Cannula 3.0 32 11/12/17 17:45 Nasal Cannula 3.0 11/12/17 17:45 3.0 11/12/17 17:14 96 18 11/12/17 17:00 95 17 144/69 (94) 100 11/12/17 16:00 30 11/12/17 16:00 96 18 142/67 (92) 98 11/12/17 16:00 Mechanical Ventilator 11/12/17 15:34 91 11/12/17 15:00 99.2 92 16 150/70 (96) 100 99.2 11/12/17 14:59 92 15 11/12/17 14:22 92 133/74 11/12/17 14:00 97 19 133/74 (93) 100 11/12/17 13:08 94 17 11/12/17 13:00 90 18 154/72 (99) 100 11/12/17 12:00 84 17 113/60 (77) 100 11/12/17 12:00 Mechanical Ventilator 11/12/17 11:57 84 11/12/17 11:37 87 11 11/12/17 11:00 85 13 108/58 (75) 99 11/12/17 10:00 89 15 113/72 (86) 100 11/12/17 09:22 88 14 30 11/12/17 09:20 30 11/12/17 09:00 93 13 147/84 (105) 100 Intake and Output 11/12/17 11/13/17 19:00 07:00 Intake Total 700 ml 260 ml Output Total 370 ml 430 ml Balance 330 ml -170 ml Free Water 50 ml IV Total 200 ml 100 ml Tube Feeding 450 ml 160 ml Output Urine Total 370 ml 430 ml # Bowel Movements 6 6 Laboratory Tests 11/12/17 10:39: Arterial Blood pH 7.441, Arterial Blood Partial Pressure CO2 46.3H, Arterial Blood Partial Pressure O2 95.9, Arterial Blood HCO3 30.8H, Arterial Blood Oxygen Saturation 97.1, Arterial Blood Base Excess 5.9, Aj Test Positive 11/13/17 04:00: White Blood Count 14.1H, Red Blood Count 3.32L, Hemoglobin 10.2L, Hematocrit 31.0L, Mean Corpuscular Volume 94, Mean Corpuscular Hemoglobin 30.8, Mean Corpuscular Hemoglobin Concent 32.9, Red Cell Distribution Width 13.7, Platelet Count 518H, Mean Platelet Volume 5.1L, Neutrophils (%) (Auto) 68.4, Lymphocytes (%) (Auto) 23.6, Monocytes (%) (Auto) 6.7, Eosinophils (%) (Auto) 0.5, Basophils (%) (Auto) 0.8, Sodium Level 146H, Potassium Level 3.4L, Chloride Level 109H, Carbon Dioxide Level 33H, Anion Gap 4L, Blood Urea Nitrogen 27H, Creatinine 0.7, Estimat Glomerular Filtration Rate > 60, Glucose Level 82, Calcium Level 8.9 Height (Feet): 5 Height (Inches): 2.00 Weight (Pounds): 104 General Appearance: lethargic EENT: normal ENT inspection Neck: normal alignment Cardiovascular: normal peripheral pulses, normal rate, regular rhythm Respiratory/Chest: chest wall non-tender, lungs clear, normal breath sounds Abdomen: normal bowel sounds, non tender, soft Extremities: normal inspection Edema: no edema noted Arm (L), no edema noted Arm (R), no edema noted Leg (L), no edema noted Leg (R), no edema noted Pedal (L), no edema noted Pedal (R), no edema noted Generalized Neurologic: motor weakness Skin: normal pigmentation, warm/dry Josias Skinner DO Nov 13, 2017 08:20
[2017-11-13] MEDS: Hydrocortisone 100mg Inj IV SCH ×2 (08:52→17:24)
[2017-11-13] MEDS: Pantoprazole Inj IVP SCH (08:53)
[2017-11-13] MEDS: Heparin 5000 units/ml inj SUBQ SCH ×2 (08:57→20:15)
[2017-11-13] MEDS ORDERED: NS 275ml ONE (09:47)
--- NOTE | 2017-11-13 10:34 | General Progress Note ---
Assessment/Plan Problem List: (1) Hypoglycemia ICD Codes: E16.2 - Hypoglycemia, unspecified SNOMED: 145150306 (2) SLE (systemic lupus erythematosus) ICD Codes: M32.9 - Systemic lupus erythematosus, unspecified SNOMED: 58432888 (3) Cocaine abuse ICD Codes: F14.10 - Cocaine abuse, uncomplicated SNOMED: 96707047 (4) Elevated transaminase measurement ICD Codes: R74.0 - Nonspecific elevation of levels of transaminase and lactic acid dehydrogenase [LDH] SNOMED: 452635229, 405784310 (5) Diabetes ICD Codes: E11.9 - Type 2 diabetes mellitus without complications SNOMED: 15356610 (6) Pneumothorax on right ICD Codes: J93.9 - Pneumothorax, unspecified SNOMED: 684032006 (7) Seizure ICD Codes: R56.9 - Unspecified convulsions SNOMED: 60380312 Assessment/Plan - continue SoluCortef 25 mg bid - continue BG monitoring every 6 hours - hypoglycemia protocol - NISS low dose Subjective ROS Limited/Unobtainable: Yes Allergies: Coded Allergies: ASPIRIN (Verified Allergy, Unknown, 10/30/17) PENICILLINS (Verified Allergy, Unknown, 10/30/17) Subjective extubated and transferred to [facility] neuro status is unchanged Objective Last 24 Hour Vital Signs Date Time Temp Pulse Resp B/P (MAP) Pulse Ox O2 Delivery O2 Flow Rate FiO2 11/13/17 06:00 83 18 122/79 (93) 100 11/13/17 05:48 81 122/59 11/13/17 05:00 91 17 164/63 (96) 100 11/13/17 05:00 Nasal Cannula 3.0 Nasal Cannula 3.0 11/13/17 04:00 Nasal Cannula 3.0 Nasal Cannula 3.0 11/13/17 04:00 98.9 79 16 114/54 (74) 100 98.9 11/13/17 04:00 79 11/13/17 03:00 80 15 113/59 (77) 100 11/13/17 02:00 83 17 132/82 (99) 100 11/13/17 01:00 82 17 122/71 (88) 100 11/13/17 00:00 Nasal Cannula 3.0 Nasal Cannula 3.0 11/13/17 00:00 83 11/13/17 00:00 98.8 83 18 127/68 (87) 100 98.8 11/12/17 23:00 97 18 144/79 (100) 100 11/12/17 22:00 95 18 146/71 (96) 100 11/12/17 21:51 96 142/71 11/12/17 21:00 97 18 142/71 (94) 100 11/12/17 20:00 Nasal Cannula 3.0 Nasal Cannula 3.0 11/12/17 20:00 99.3 91 24 139/89 (106) 100 99.3 11/12/17 20:00 91 11/12/17 19:27 100 Nasal Cannula 3.0 32 11/12/17 19:27 Nasal Cannula 3.0 32 11/12/17 19:00 96 18 145/70 (95) 100 11/12/17 18:00 97 20 138/71 (93) 100 11/12/17 17:54 Nasal Cannula 3.0 32 11/12/17 17:45 Nasal Cannula 3.0 11/12/17 17:45 3.0 11/12/17 17:14 96 18 11/12/17 17:00 95 17 144/69 (94) 100 11/12/17 16:00 30 11/12/17 16:00 96 18 142/67 (92) 98 11/12/17 16:00 Mechanical Ventilator 11/12/17 15:34 91 11/12/17 15:00 99.2 92 16 150/70 (96) 100 99.2 11/12/17 14:59 92 15 11/12/17 14:22 92 133/74 11/12/17 14:00 97 19 133/74 (93) 100 11/12/17 13:08 94 17 11/12/17 13:00 90 18 154/72 (99) 100 11/12/17 12:00 84 17 113/60 (77) 100 11/12/17 12:00 Mechanical Ventilator 11/12/17 11:57 84 11/12/17 11:37 87 11 11/12/17 11:00 85 13 108/58 (75) 99 Intake and Output 11/12/17 11/13/17 19:00 07:00 Intake Total 700 ml 260 ml Output Total 370 ml 430 ml Balance 330 ml -170 ml Free Water 50 ml IV Total 200 ml 100 ml Tube Feeding 450 ml 160 ml Output Urine Total 370 ml 430 ml # Bowel Movements 6 6 Laboratory Tests 11/12/17 10:39: Arterial Blood pH 7.441, Arterial Blood Partial Pressure CO2 46.3H, Arterial Blood Partial Pressure O2 95.9, Arterial Blood HCO3 30.8H, Arterial Blood Oxygen Saturation 97.1, Arterial Blood Base Excess 5.9, Aj Test Positive 11/13/17 04:00: White Blood Count 14.1H, Red Blood Count 3.32L, Hemoglobin 10.2L, Hematocrit 31.0L, Mean Corpuscular Volume 94, Mean Corpuscular Hemoglobin 30.8, Mean Corpuscular Hemoglobin Concent 32.9, Red Cell Distribution Width 13.7, Platelet Count 518H, Mean Platelet Volume 5.1L, Neutrophils (%) (Auto) 68.4, Lymphocytes (%) (Auto) 23.6, Monocytes (%) (Auto) 6.7, Eosinophils (%) (Auto) 0.5, Basophils (%) (Auto) 0.8, Sodium Level 146H, Potassium Level 3.4L, Chloride Level 109H, Carbon Dioxide Level 33H, Anion Gap 4L, Blood Urea Nitrogen 27H, Creatinine 0.7, Estimat Glomerular Filtration Rate > 60, Glucose Level 82, Calcium Level 8.9 Height (Feet): 5 Height (Inches): 2.00 Weight (Pounds): 104 General Appearance: other - comatose Neck: normal alignment Cardiovascular: normal rate Respiratory/Chest: lungs clear Objective Current Medications Medications (Trade) Dose Ordered Sig/Yung Route PRN Reason Start Time Stop Time Status Last Admin Dose Admin Acetaminophen (Tylenol) 650 mg Q4H PRN RECTAL Prn Headache/Temp > 101 11/13/17 05:36 11/29/17 05:35 Acetaminophen (Tylenol) 650 mg Q6H PRN NG Mild Pain/Temp > 100.5 11/13/17 05:36 12/03/17 05:35 Chlorhexidine Gluconate (Sunita-Hex 2%) 1 applic DAILY@1999 TOPIC 11/13/17 20:00 11/29/17 19:59 Clonidine HCl (Catapres Tab) 0.1 mg Q4H PRN ORAL for SBP >160 11/13/17 09:00 12/01/17 12:59 Dextrose (Dextrose 50%) 25 ml Q1H PRN IV Hypoglycemia 11/13/17 06:00 12/03/17 17:59 Dextrose (Dextrose 50%) 50 ml Q1H PRN IV Hypoglycemia 11/13/17 06:00 12/03/17 17:59 Diltiazem HCl (Cardizem) 60 mg EVERY 8 HOURS NG 11/13/17 06:00 12/05/17 21:59 11/13/17 05:48 Heparin Sodium (Porcine) (Heparin 5000 units/ml) 5,000 units EVERY 12 HOURS SUBQ 11/13/17 09:00 11/29/17 08:59 11/13/17 08:57 Hydrocortisone (Solu-CORTEF) 25 mg BID IV 11/13/17 09:00 11/30/17 18:29 11/13/17 08:52 Insulin Aspart (NovoLOG) Q6HR SUBQ 11/13/17 06:00 12/03/17 19:59 Levetiracetam 100 ml @ 400 mls/hr Q8H IVPB 11/13/17 09:00 11/29/17 16:59 11/13/17 08:53 Levofloxacin (Levaquin) 750 mg Q48H GT 11/13/17 09:00 11/14/17 23:00 11/13/17 08:53 Lorazepam (Ativan 2mg/ml 1ml) 2 mg Q2H PRN IV For Anxiety 11/13/17 06:00 11/15/17 07:59 Morphine Sulfate (Morphine Sulfate) 4 mg Q1H PRN IVP for discomfort or RR>20 11/13/17 06:00 11/19/17 15:54 Nitroglycerin (Ntg) 0.4 mg Q5M PRN SL Prn Chest Pain 11/13/17 05:20 11/29/17 07:59 Ondansetron HCl (Zofran) 4 mg Q6H PRN IVP Nausea & Vomiting 11/13/17 05:36 11/29/17 05:35 Pantoprazole (Protonix) 40 mg DAILY IVP 11/13/17 09:00 12/02/17 08:59 11/13/17 08:53 Item Value Date Time Bedside Blood Glucose 110 mg/dl 11/12/17 0600 Bedside Blood Glucose 99 mg/dl 11/12/17 0000 Bedside Blood Glucose 106 mg/dl 11/11/17 1800 Bedside Blood Glucose 84 mg/dl 11/13/17 0600 Bedside Blood Glucose 99 mg/dl 11/13/17 0000 Bedside Blood Glucose 99 mg/dl 11/12/17 1805 Salvador Gacria MD Nov 13, 2017 10:34
--- NOTE | 2017-11-13 14:48 | Neurology Progress Note ---
Interim History Interim History Interim History Ms. Robertson continues to be unresponsive. She was extubated yesterday. She continues to exhibit spontaneous eye opening and closing. She is still exhibiting decerebrate posturing. She has had no seizures or seizure like phenomena. There has been no improvement in her neurologic state. Review of Systems Neuro Review of Systems Unable to obtain. Objective Physical Exam Last Vital Signs Date Time Temp Pulse Resp B/P (MAP) Pulse Ox O2 Delivery O2 Flow Rate FiO2 11/13/17 13:59 99 141/81 11/13/17 12:00 98.1 20 100 98.1 11/13/17 09:00 Nasal Cannula 3.0 Nasal Cannula 3.0 11/13/17 08:47 32 Laboratory Tests Test 11/13/17 04:00 White Blood Count 14.1 K/UL (4.8-10.8) H Red Blood Count 3.32 M/UL (4.20-5.40) L Hemoglobin 10.2 G/DL (12.0-16.0) L Hematocrit 31.0 % (37.0-47.0) L Mean Corpuscular Volume 94 FL (80-99) Mean Corpuscular Hemoglobin 30.8 PG (27.0-31.0) Mean Corpuscular Hemoglobin Concent 32.9 G/DL (32.0-36.0) Red Cell Distribution Width 13.7 % (11.6-14.8) Platelet Count 518 K/UL (150-450) H Mean Platelet Volume 5.1 FL (6.5-10.1) L Neutrophils (%) (Auto) 68.4 % (45.0-75.0) Lymphocytes (%) (Auto) 23.6 % (20.0-45.0) Monocytes (%) (Auto) 6.7 % (1.0-10.0) Eosinophils (%) (Auto) 0.5 % (0.0-3.0) Basophils (%) (Auto) 0.8 % (0.0-2.0) Sodium Level 146 MMOL/L (136-145) H Potassium Level 3.4 MMOL/L (3.5-5.1) L Chloride Level 109 MMOL/L (98-107) H Carbon Dioxide Level 33 MMOL/L (21-32) H Anion Gap 4 mmol/L (5-15) L Blood Urea Nitrogen 27 mg/dL (7-18) H Creatinine 0.7 MG/DL (0.55-1.30) Estimat Glomerular Filtration Rate > 60 mL/min (>60) Glucose Level 82 MG/DL (74-106) Calcium Level 8.9 MG/DL (8.5-10.1) Neurologic Exam Objective PHYSICAL EXAMINATION: GENERAL: She is a well-developed, cachectic, lean, black lady, lying in an ICU bed, in no acute distress, connected to a ventilator via an orotracheal tube. HEAD: Normocephalic and atraumatic. EENT: Examination benign. NECK: No neck rigidity was observed. NEUROLOGIC EXAMINATION: MENTAL STATUS EXAMINATION: She was unresponsive even to deep painful stimuli. She was decerebrating spontaneously. Further mental status testing was impossible. SPEECH: Could not be tested. LANGUAGE: Could not be tested. CRANIAL NERVE EXAMINATION: II: She did not blink to threat. III, IV & : The external ocular movements were present on oculocephalic maneuvers. The pupils were 3 mm in diameter and reactive sluggishly to light. V & VII: The corneal reflexes were present, but significantly diminished. VIII: She did not respond to sounds and had no nystagmus. IX & X: The gag reflex was present but delayed on manipulating the endotracheal tube. XI: The sternocleidomastoids and trapezii could not be tested. XII: Could not be tested. MOTOR SYSTEM: The tone was increased in all four extremities with severe spasticity. Examination of muscle mass revealed generalized muscle wasting. Examination of power was impossible to perform because even on applying deep painful stimuli, no purposeful movements were seen. SENSORY EXAMINATION: She did not respond even to deep pain other than reflex withdrawal. REFLEXES: 1+ and bilaterally symmetrical at the biceps, triceps, brachioradialis , and knees. 0 at both ankles. The plantar responses were extensor bilaterally. COORDINATION, STANCE & GAIT: Could not be tested. Impression/Recommendations Diagnostic Impression 1. Ms. Polly Robertson is a 57-year-old, right-handed, black lady, who does have a past history of polysubstance abuse with her recent drug of choice being cocaine, a seizure disorder, and chronic pain, who was found down in her bathroom at home with vomitus in her mouth. She then was noted to stop breathing and this progressed to cardiac failure. The paramedics were called in and she had to have advanced cardiac life support before she could be resuscitated. She was then transported to the [facility] emergency room and on the way here she was noted to have a generalized seizure. Since then, she has had multiple seizures, however, at this point in time, they are well controlled on the present regimen. 2. She continues to be unresponsive. She was extubated on 11/12/17. She continues to exhibit spontaneous eye opening and closing. She is still exhibiting decerebrate posturing. She has had no seizures or seizure like phenomena. There has been no improvement in her neurologic state. 3. On neurological examination, at this time, she is unresponsive even to deep pain exhibiting only reflex withdrawal. She exhibits spontaneous decerebration. She does not demonstrate any focal or lateralizing findings. 4. The CT scan of the brain without contrast is benign for acute pathology. 5. Her latest laboratory data on my initial evaluation revealed that her WBC count was elevated to 17,600 with predominantly 79% being neutrophils and 15% being lymphocytes and monocytes. Her arterial blood gas revealed pCO2 low at 21.2, pO2 at 154, and pH of 7.49. Her chemistry panel revealed a creatinine elevated to 1.7. Her AST was elevated at 255, ALT elevated at 251, and alkaline phosphatase elevated at 142. Her albumin was low at 2.9. Her Urinalysis revealed 1+ leukocyte esterase, 20- 30 red blood cells, and 5-10 white blood cells per high-power field. The urine toxicology screen was positive for cocaine. 6. Her EEG done on 10/31/17 revealed a severe encephalopathy and bilateral frontal epileptogenic foci with inter-ictal discharges at times with a large field. 7. The patient's history, neurological examination, laboratory data and imaging studies are most compatible with seizures due to a hypoxic/ischemic cerebral insult and/or cocaine intoxication. She is seizure free on Keppra. 8. 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 9. The prognosis for recovery of cerebral function is dismal. Recommendations 1. Continue present management. 2. Continue Keppra 1 G intravenously every 8 hours. 3. Keep comfortable. Denisse Lester M.D., M.S[facility]. DENISSE LESTER Nov 13, 2017 14:48
[2017-11-13] MEDS: Dyna-Hex 2% Top Sol 2oz TOPIC SCH (20:13)
--- NOTE | 2017-11-13 20:59 | Nephrology Progress Note ---
Assessment/Plan Assessment 1. Aspiration pneumonia. 2. hypernatremia 3. hypokalemia 4. Shock liver. . Plan plan free water check mg9 replace k monitoring renal function and urine out put avoid NSAID Subjective ROS Limited/Unobtainable: Yes Constitutional: Reports: no symptoms Subjective extubated unresponsive Objective Objective Last 24 Hour Vital Signs Date Time Temp Pulse Resp B/P (MAP) Pulse Ox O2 Delivery O2 Flow Rate FiO2 11/13/17 20:00 98.6 104 23 154/88 (110) 94 98.6 11/13/17 16:00 97.9 94 20 134/75 (94) 100 97.9 11/13/17 13:59 99 141/81 11/13/17 12:00 98.1 99 20 141/81 (101) 100 98.1 11/13/17 09:00 Nasal Cannula 3.0 Nasal Cannula 3.0 11/13/17 08:47 100 Nasal Cannula 3.0 32 11/13/17 08:47 Nasal Cannula 3.0 32 11/13/17 08:00 97.5 95 19 149/74 (99) 100 97.5 11/13/17 06:00 83 18 122/79 (93) 100 11/13/17 05:48 81 122/59 11/13/17 05:00 91 17 164/63 (96) 100 11/13/17 05:00 Nasal Cannula 3.0 Nasal Cannula 3.0 11/13/17 04:00 Nasal Cannula 3.0 Nasal Cannula 3.0 11/13/17 04:00 98.9 79 16 114/54 (74) 100 98.9 11/13/17 04:00 79 11/13/17 03:00 80 15 113/59 (77) 100 11/13/17 02:00 83 17 132/82 (99) 100 11/13/17 01:00 82 17 122/71 (88) 100 11/13/17 00:00 Nasal Cannula 3.0 Nasal Cannula 3.0 11/13/17 00:00 83 11/13/17 00:00 98.8 83 18 127/68 (87) 100 98.8 11/12/17 23:00 97 18 144/79 (100) 100 11/12/17 22:00 95 18 146/71 (96) 100 11/12/17 21:51 96 142/71 11/12/17 21:00 97 18 142/71 (94) 100 Intake and Output 11/12/17 11/13/17 19:00 07:00 Intake Total 700 ml 260 ml Output Total 370 ml 430 ml Balance 330 ml -170 ml Free Water 50 ml IV Total 200 ml 100 ml Tube Feeding 450 ml 160 ml Output Urine Total 370 ml 430 ml # Bowel Movements 6 6 Laboratory Tests 11/13/17 04:00: White Blood Count 14.1H, Red Blood Count 3.32L, Hemoglobin 10.2L, Hematocrit 31.0L, Mean Corpuscular Volume 94, Mean Corpuscular Hemoglobin 30.8, Mean Corpuscular Hemoglobin Concent 32.9, Red Cell Distribution Width 13.7, Platelet Count 518H, Mean Platelet Volume 5.1L, Neutrophils (%) (Auto) 68.4, Lymphocytes (%) (Auto) 23.6, Monocytes (%) (Auto) 6.7, Eosinophils (%) (Auto) 0.5, Basophils (%) (Auto) 0.8, Sodium Level 146H, Potassium Level 3.4L, Chloride Level 109H, Carbon Dioxide Level 33H, Anion Gap 4L, Blood Urea Nitrogen 27H, Creatinine 0.7, Estimat Glomerular Filtration Rate > 60, Glucose Level 82, Calcium Level 8.9 Height (Feet): 5 Height (Inches): 2.00 Weight (Pounds): 104 Objective HEAD AND NECK: No JVP. No LAD. No thyromegaly. Extraocular movement intact. Pupils are reactive to light and accommodation. LUNGS: Decreased breathing sounds on the right. Apparently, the patient received IJ placement this morning and later on patient developed a pneumothorax on the right side. ABDOMEN: Soft, nontender, and nondistended. EXTREMITIES: No edema. No clubbing. No cyanosis. The patient has Stefani Shabazz MD Nov 13, 2017 20:59
--- NOTE | 2017-11-13 23:43 | Cardiology Progress Note ---
Assessment/Plan Assessment/Plan 1. Sinus tachycardia, possibly due to cocaine intoxication, increase diltiazem to 90 mg tid,, echo reveals normal left ventricular systolic function with LVEF of approximately 55%. 2. Acute hypoxemic respiratory failure due to aspiration PNA, extubated. 3. HTN, adjust cardizem dose for better control. 4. Mild pulmonary hypertension with right ventricular systolic pressure measured at 42 mmHg. 5. Small right pneumothorax, resolved. Subjective Subjective Sinus tachycardia at 104. Extubated now on NC oxygen. Transferred to the med-surg unit. Objective Last 24 Hour Vital Signs Date Time Temp Pulse Resp B/P (MAP) Pulse Ox O2 Delivery O2 Flow Rate FiO2 11/13/17 21:11 104 154/88 11/13/17 21:00 Nasal Cannula 3.0 Nasal Cannula 3.0 11/13/17 20:00 98.6 104 23 154/88 (110) 94 98.6 11/13/17 16:00 97.9 94 20 134/75 (94) 100 97.9 11/13/17 13:59 99 141/81 11/13/17 12:00 98.1 99 20 141/81 (101) 100 98.1 11/13/17 09:00 Nasal Cannula 3.0 Nasal Cannula 3.0 11/13/17 08:47 100 Nasal Cannula 3.0 32 11/13/17 08:47 Nasal Cannula 3.0 32 11/13/17 08:00 97.5 95 19 149/74 (99) 100 97.5 11/13/17 06:00 83 18 122/79 (93) 100 11/13/17 05:48 81 122/59 11/13/17 05:00 91 17 164/63 (96) 100 11/13/17 05:00 Nasal Cannula 3.0 Nasal Cannula 3.0 11/13/17 04:00 Nasal Cannula 3.0 Nasal Cannula 3.0 11/13/17 04:00 98.9 79 16 114/54 (74) 100 98.9 11/13/17 04:00 79 11/13/17 03:00 80 15 113/59 (77) 100 11/13/17 02:00 83 17 132/82 (99) 100 11/13/17 01:00 82 17 122/71 (88) 100 11/13/17 00:00 Nasal Cannula 3.0 Nasal Cannula 3.0 11/13/17 00:00 83 11/13/17 00:00 98.8 83 18 127/68 (87) 100 98.8 Intake and Output 11/12/17 11/13/17 19:00 07:00 Intake Total 700 ml 260 ml Output Total 370 ml 430 ml Balance 330 ml -170 ml Free Water 50 ml IV Total 200 ml 100 ml Tube Feeding 450 ml 160 ml Output Urine Total 370 ml 430 ml # Bowel Movements 6 6 2D Echo: EF 60-65%, mild LVH, Mild AR, normal LVDD, RVSP 42 mmHg Laboratory Tests Test 11/13/17 04:00 White Blood Count 14.1 K/UL (4.8-10.8) H Red Blood Count 3.32 M/UL (4.20-5.40) L Hemoglobin 10.2 G/DL (12.0-16.0) L Hematocrit 31.0 % (37.0-47.0) L Mean Corpuscular Volume 94 FL (80-99) Mean Corpuscular Hemoglobin 30.8 PG (27.0-31.0) Mean Corpuscular Hemoglobin Concent 32.9 G/DL (32.0-36.0) Red Cell Distribution Width 13.7 % (11.6-14.8) Platelet Count 518 K/UL (150-450) H Mean Platelet Volume 5.1 FL (6.5-10.1) L Neutrophils (%) (Auto) 68.4 % (45.0-75.0) Lymphocytes (%) (Auto) 23.6 % (20.0-45.0) Monocytes (%) (Auto) 6.7 % (1.0-10.0) Eosinophils (%) (Auto) 0.5 % (0.0-3.0) Basophils (%) (Auto) 0.8 % (0.0-2.0) Sodium Level 146 MMOL/L (136-145) H Potassium Level 3.4 MMOL/L (3.5-5.1) L Chloride Level 109 MMOL/L (98-107) H Carbon Dioxide Level 33 MMOL/L (21-32) H Anion Gap 4 mmol/L (5-15) L Blood Urea Nitrogen 27 mg/dL (7-18) H Creatinine 0.7 MG/DL (0.55-1.30) Estimat Glomerular Filtration Rate > 60 mL/min (>60) Glucose Level 82 MG/DL (74-106) Calcium Level 8.9 MG/DL (8.5-10.1) Microbiology Date/Time Source Procedure Growth Status 11/11/17 10:55 Blood Blood Culture - Preliminary NO GROWTH AFTER 24 HOURS Resulted 11/11/17 10:40 Blood Blood Culture - Preliminary NO GROWTH AFTER 24 HOURS Resulted 11/11/17 13:00 Sputum Gram Stain - Final Resulted 11/11/17 13:00 Sputum Culture - Preliminary Gram Negative Bacillus 1 Resulted 11/11/17 13:00 Urine,Clean Catch Urine Culture - Preliminary NO GROWTH AFTER 24 HOURS Resulted Objective HEENT: Atraumatic and normocephalic. Anicteric. Pupils are equal, round, and reactive to light and accommodation. NECK: JVP less than 5 cm, no carotid bruit. CARDIOVASCULAR: Normal S1, S2, tachycardic, regular rate rhythm, no murmurs, gallops, or rubs. LUNGS: Diminished breath sounds in both bases. ABDOMEN: Soft, nontender, and nondistended. Positive bowel sounds. EXTREMITIES: No evidence of edema, clubbing, or cyanosis. Geovany Brown MD Nov 13, 2017 23:43
[2017-11-14] VITALS: BP 145/86
[2017-11-14] MEDS: levETIRAcetam 1,000mg/NS100ml 100 ML IVPB SCH ×3 (00:56→16:33)
[2017-11-14 04:00] VITALS: BP 141/81
[2017-11-14] MEDS: dilTIAZem HCl 60mg tab NG SCH ×3 (05:34→21:06)
[2017-11-14] MEDS: NovoLOG Insulin Flexpen SUBQ SCH ×3 (05:45→12:00)
--- NOTE | 2017-11-14 06:39 | General Progress Note ---
Assessment/Plan Problem List: (1) Hypoglycemia ICD Codes: E16.2 - Hypoglycemia, unspecified SNOMED: 305378795 (2) SLE (systemic lupus erythematosus) ICD Codes: M32.9 - Systemic lupus erythematosus, unspecified SNOMED: 32513655 (3) Cocaine abuse ICD Codes: F14.10 - Cocaine abuse, uncomplicated SNOMED: 26761941 (4) Elevated transaminase measurement ICD Codes: R74.0 - Nonspecific elevation of levels of transaminase and lactic acid dehydrogenase [LDH] SNOMED: 110337912, 729194542 (5) Diabetes ICD Codes: E11.9 - Type 2 diabetes mellitus without complications SNOMED: 78800122 (6) Pneumothorax on right ICD Codes: J93.9 - Pneumothorax, unspecified SNOMED: 166978085 (7) Seizure ICD Codes: R56.9 - Unspecified convulsions SNOMED: 39461206 Assessment/Plan - continue SoluCortef 25 mg bid - continue BG monitoring every 6 hours - hypoglycemia protocol - NISS low dose Subjective ROS Limited/Unobtainable: Yes Allergies: Coded Allergies: ASPIRIN (Verified Allergy, Unknown, 10/30/17) PENICILLINS (Verified Allergy, Unknown, 10/30/17) Subjective events noted Objective Last 24 Hour Vital Signs Date Time Temp Pulse Resp B/P (MAP) Pulse Ox O2 Delivery O2 Flow Rate FiO2 11/14/17 05:34 84 141/81 11/14/17 04:00 97.9 84 20 141/81 (101) 99 97.9 11/14/17 00:00 97.8 96 20 145/86 (105) 99 97.8 11/13/17 21:11 104 154/88 11/13/17 21:00 Nasal Cannula 3.0 Nasal Cannula 3.0 11/13/17 20:00 98.6 104 23 154/88 (110) 94 98.6 11/13/17 16:00 97.9 94 20 134/75 (94) 100 97.9 11/13/17 13:59 99 141/81 11/13/17 12:00 98.1 99 20 141/81 (101) 100 98.1 11/13/17 09:00 Nasal Cannula 3.0 Nasal Cannula 3.0 11/13/17 08:47 100 Nasal Cannula 3.0 32 11/13/17 08:47 Nasal Cannula 3.0 32 11/13/17 08:00 97.5 95 19 149/74 (99) 100 97.5 Intake and Output 11/13/17 11/14/17 19:00 07:00 Intake Total 45 ml 470 ml Output Total 750 ml 380 ml Balance -705 ml 90 ml Free Water 190 ml IV Total 100 ml Tube Feeding 45 ml 180 ml Output Urine Total 750 ml 380 ml # Bowel Movements 3 1 Height (Feet): 5 Height (Inches): 2.00 Weight (Pounds): 109 General Appearance: other - comatose Neck: normal alignment Cardiovascular: normal rate Respiratory/Chest: lungs clear Abdomen: normal bowel sounds Pelvis: normal external exam Edema: no edema noted Arm (L), no edema noted Arm (R), no edema noted Leg (L), no edema noted Leg (R), no edema noted Pedal (L), no edema noted Pedal (R), no edema noted Generalized Objective Current Medications Medications (Trade) Dose Ordered Sig/Yung Route PRN Reason Start Time Stop Time Status Last Admin Dose Admin Acetaminophen (Tylenol) 650 mg Q6H PRN NG Mild Pain/Temp > 100.5 11/13/17 05:36 12/03/17 05:35 Chlorhexidine Gluconate (Sunita-Hex 2%) 1 applic DAILY@1999 TOPIC 11/13/17 20:00 11/29/17 19:59 11/13/17 20:13 Clonidine HCl (Catapres Tab) 0.1 mg Q4H PRN ORAL for SBP >160 11/13/17 09:00 12/01/17 12:59 Dextrose (Dextrose 50%) 25 ml Q1H PRN IV Hypoglycemia 11/13/17 06:00 12/03/17 17:59 Dextrose (Dextrose 50%) 50 ml Q1H PRN IV Hypoglycemia 11/13/17 06:00 12/03/17 17:59 Diltiazem HCl (Cardizem) 90 mg EVERY 8 HOURS NG 11/14/17 06:00 12/14/17 05:59 11/14/17 05:34 Heparin Sodium (Porcine) (Heparin 5000 units/ml) 5,000 units EVERY 12 HOURS SUBQ 11/13/17 09:00 11/29/17 08:59 11/13/17 20:15 Hydrocortisone (Solu-CORTEF) 25 mg BID IV 11/13/17 09:00 11/30/17 18:29 11/13/17 17:24 Insulin Aspart (NovoLOG) Q6HR SUBQ 11/13/17 06:00 12/03/17 19:59 11/14/17 05:45 Levetiracetam 100 ml @ 400 mls/hr Q8H IVPB 11/13/17 09:00 11/29/17 16:59 11/14/17 00:56 Levofloxacin (Levaquin) 750 mg Q48H GT 11/13/17 09:00 11/15/17 08:59 11/13/17 08:53 Lorazepam (Ativan 2mg/ml 1ml) 2 mg Q2H PRN IV For Anxiety 11/13/17 06:00 11/15/17 07:59 Morphine Sulfate (Morphine Sulfate) 4 mg Q1H PRN IVP for discomfort or RR>20 11/13/17 06:00 11/19/17 15:54 Nitroglycerin (Ntg) 0.4 mg Q5M PRN SL Prn Chest Pain 11/13/17 05:20 11/29/17 07:59 Ondansetron HCl (Zofran) 4 mg Q6H PRN IVP Nausea & Vomiting 11/13/17 05:36 11/29/17 05:35 Pantoprazole (Protonix) 40 mg DAILY IVP 11/13/17 09:00 12/02/17 08:59 11/13/17 08:53 Item Value Date Time Bedside Blood Glucose 118 mg/dl 11/14/17 0545 Bedside Blood Glucose 100 mg/dl 11/14/17 0054 Bedside Blood Glucose 98 mg/dl 11/13/17 1800 Bedside Blood Glucose 110 mg/dl 11/13/17 1200 Bedside Blood Glucose 84 mg/dl 11/13/17 0600 Salvador Garcia MD Nov 14, 2017 06:39
[2017-11-14 07:19] LABS: BASOPHILS % (AUTO) 1.2 % (0.0-2.0); EOSINOPHILS % (AUTO) 0.7 % (0.0-3.0); HEMATOCRIT 32.6 % (37.0-47.0); HEMOGLOBIN 10.6 G/DL (12.0-16.0); LYMPHOCYTES % (AUTO) 19.9 % (20.0-45.0); MEAN CORPUSCULAR VOLUME 93 FL (80-99); MONOCYTES % (AUTO) 8.5 % (1.0-10.0); NEUTROPHILS % (AUTO) 69.7 % (45.0-75.0); PLATELET COUNT 522 K/UL (150-450); RED BLOOD COUNT 3.52 M/UL (4.20-5.40); RED CELL DISTRIBUTION WIDTH 13.4 % (11.6-14.8); WHITE BLOOD COUNT 11.3 K/UL (4.8-10.8)
[2017-11-14 07:20] LABS: ANION GAP 4 mmol/L (5-15); BLOOD UREA NITROGEN 23 mg/dL (7-18); CALCIUM 9.2 MG/DL (8.5-10.1); CARBON DIOXIDE 32 MMOL/L (21-32); CHLORIDE 109 MMOL/L (98-107); CREATININE 0.7 MG/DL (0.55-1.30); POTASSIUM 3.5 MMOL/L (3.5-5.1); SODIUM 145 MMOL/L (136-145)
[2017-11-14 08:00] VITALS: BP 134/69
--- NOTE | 2017-11-14 09:02 | Infectious Diseases Prog Note ---
Assessment/Plan Assessment/Plan 57 yo female who presented to the ED on 10/30/17 after pulmonary arrest. Sepsis - Probable Asp PNA On Abx 10/30 Sputum Cultures - Predominantly NF - +1 Steno Will hold off Tx of Steno as patient improving 10/31 Urine Cx - NGTD Leukocytosis - WBCs 16 after seizure No Fevers Seizures - Had Seizure on route to ED 10/30/17 and in the ICU as well Drug abuse - Pos for cocaine Arthritis Chronic pain. P: - D/C levofloxacin - Start Bactrim DS 2 Tab BID #02/27 for Stenotrophomonas in the lungs - S/P Levofloxacin # - 11/04 Ceftriaxone #3 - D/C Flagyl #10 for asp PNA - 10/31 Vancomycin # - 10/31 Aztreonam - 10/30 SP Ceftriaxone - Monitor CBC and Temps - Vent management per pulm - Poor prognosis We will continue to follow the patient during this hospitalization. Subjective Allergies: Coded Allergies: ASPIRIN (Verified Allergy, Unknown, 10/30/17) PENICILLINS (Verified Allergy, Unknown, 10/30/17) Subjective Extubated no on 2L NC No Clinical change in mental status Afebrile Objective Vital Signs Last 24 Hour Vital Signs Date Time Temp Pulse Resp B/P (MAP) Pulse Ox O2 Delivery O2 Flow Rate FiO2 11/14/17 08:11 Nasal Cannula 2.0 28 11/14/17 08:11 100 Nasal Cannula 2.0 28 11/14/17 05:34 84 141/81 11/14/17 04:00 97.9 84 20 141/81 (101) 99 97.9 11/14/17 00:00 97.8 96 20 145/86 (105) 99 97.8 11/13/17 21:11 104 154/88 11/13/17 21:00 Nasal Cannula 3.0 Nasal Cannula 3.0 11/13/17 20:00 98.6 104 23 154/88 (110) 94 98.6 11/13/17 16:00 97.9 94 20 134/75 (94) 100 97.9 11/13/17 13:59 99 141/81 11/13/17 12:00 98.1 99 20 141/81 (101) 100 98.1 11/13/17 09:00 Nasal Cannula 3.0 Nasal Cannula 3.0 Height (Feet): 5 Height (Inches): 2.00 Weight (Pounds): 109 Objective Gen: NAD, On NC HEENT: NCAT, MMM, eye open at times not tracking LUNGS: Mechanical breath sounds, No Wheezing CARDS: RRR, S1, S2 ABD: Soft, NT, ND, + BS NEURO: Not responsive Microbiology Date/Time Source Procedure Growth Status 11/11/17 10:55 Blood Blood Culture - Preliminary NO GROWTH AFTER 48 HOURS Resulted 11/11/17 10:40 Blood Blood Culture - Preliminary NO GROWTH AFTER 48 HOURS Resulted 11/11/17 13:00 Sputum Gram Stain - Final Complete 11/11/17 13:00 Sputum Culture - Final Stenotrophomonas Maltophilia Complete 11/11/17 13:00 Urine,Clean Catch Urine Culture - Final NO GROWTH AFTER 48 HOURS Complete Laboratory Tests Test 11/14/17 05:45 White Blood Count 11.3 K/UL (4.8-10.8) H Red Blood Count 3.52 M/UL (4.20-5.40) L Hemoglobin 10.6 G/DL (12.0-16.0) L Hematocrit 32.6 % (37.0-47.0) L Mean Corpuscular Volume 93 FL (80-99) Mean Corpuscular Hemoglobin 30.0 PG (27.0-31.0) Mean Corpuscular Hemoglobin Concent 32.4 G/DL (32.0-36.0) Red Cell Distribution Width 13.4 % (11.6-14.8) Platelet Count 522 K/UL (150-450) H Mean Platelet Volume 5.3 FL (6.5-10.1) L Neutrophils (%) (Auto) 69.7 % (45.0-75.0) Lymphocytes (%) (Auto) 19.9 % (20.0-45.0) L Monocytes (%) (Auto) 8.5 % (1.0-10.0) Eosinophils (%) (Auto) 0.7 % (0.0-3.0) Basophils (%) (Auto) 1.2 % (0.0-2.0) Sodium Level 145 MMOL/L (136-145) Potassium Level 3.5 MMOL/L (3.5-5.1) Chloride Level 109 MMOL/L (98-107) H Carbon Dioxide Level 32 MMOL/L (21-32) Anion Gap 4 mmol/L (5-15) L Blood Urea Nitrogen 23 mg/dL (7-18) H Creatinine 0.7 MG/DL (0.55-1.30) Estimat Glomerular Filtration Rate > 60 mL/min (>60) Glucose Level 97 MG/DL (74-106) Calcium Level 9.2 MG/DL (8.5-10.1) Current Medications Medications (Trade) Dose Ordered Sig/Yung Route PRN Reason Start Time Stop Time Status Last Admin Dose Admin Acetaminophen (Tylenol) 650 mg Q6H PRN NG Mild Pain/Temp > 100.5 11/13/17 05:36 12/03/17 05:35 Chlorhexidine Gluconate (Sunita-Hex 2%) 1 applic DAILY@1999 TOPIC 11/13/17 20:00 11/29/17 19:59 11/13/17 20:13 Clonidine HCl (Catapres Tab) 0.1 mg Q4H PRN ORAL for SBP >160 11/13/17 09:00 12/01/17 12:59 Dextrose (Dextrose 50%) 25 ml Q1H PRN IV Hypoglycemia 11/13/17 06:00 12/03/17 17:59 Dextrose (Dextrose 50%) 50 ml Q1H PRN IV Hypoglycemia 11/13/17 06:00 12/03/17 17:59 Diltiazem HCl (Cardizem) 90 mg EVERY 8 HOURS NG 11/14/17 06:00 12/14/17 05:59 11/14/17 05:34 Heparin Sodium (Porcine) (Heparin 5000 units/ml) 5,000 units EVERY 12 HOURS SUBQ 11/13/17 09:00 11/29/17 08:59 11/13/17 20:15 Hydrocortisone (Solu-CORTEF) 25 mg BID IV 11/13/17 09:00 11/30/17 18:29 11/13/17 17:24 Insulin Aspart (NovoLOG) Q6HR SUBQ 11/13/17 06:00 12/03/17 19:59 11/14/17 05:45 Levetiracetam 100 ml @ 400 mls/hr Q8H IVPB 11/13/17 09:00 11/29/17 16:59 11/14/17 00:56 Levofloxacin (Levaquin) 750 mg Q48H GT 11/13/17 09:00 11/15/17 08:59 11/13/17 08:53 Lorazepam (Ativan 2mg/ml 1ml) 2 mg Q2H PRN IV For Anxiety 11/13/17 06:00 11/15/17 07:59 Morphine Sulfate (Morphine Sulfate) 4 mg Q1H PRN IVP for discomfort or RR>20 11/13/17 06:00 11/19/17 15:54 Nitroglycerin (Ntg) 0.4 mg Q5M PRN SL Prn Chest Pain 11/13/17 05:20 11/29/17 07:59 Ondansetron HCl (Zofran) 4 mg Q6H PRN IVP Nausea & Vomiting 11/13/17 05:36 11/29/17 05:35 Pantoprazole (Protonix) 40 mg DAILY IVP 11/13/17 09:00 12/02/17 08:59 11/13/17 08:53 Gutierrez Sifuentes MD Nov 14, 2017 09:02
[2017-11-14] MEDS: Pantoprazole Inj IVP SCH (10:27)
[2017-11-14] MEDS: Hydrocortisone 100mg Inj IV SCH (10:27)
[2017-11-14] MEDS: Bactrim-DS 1 tab ORAL SCH ×2 (10:27→17:20)
[2017-11-14] MEDS: Heparin 5000 units/ml inj SUBQ SCH ×2 (10:42→21:06)
--- NOTE | 2017-11-14 11:16 | GI Progress Note ---
Assessment/Plan Problems: (1) Diabetes ICD Codes: E11.9 - Type 2 diabetes mellitus without complications SNOMED: 80717101 (2) Cocaine abuse ICD Codes: F14.10 - Cocaine abuse, uncomplicated SNOMED: 29771127 (3) Transaminitis ICD Codes: R74.0 - Nonspecific elevation of levels of transaminase and lactic acid dehydrogenase [LDH] SNOMED: 213246133, 116627324 (4) Anemia ICD Codes: D64.9 - Anemia, unspecified SNOMED: 242759240 Status: not improved, unchanged Status Narrative Discussed with Dr. Sauceda. Assessment/Plan NGTFs fu labs supportive care peg if needed poor prognosis The patient was seen and examined at bedside and all new and available data was reviewed in the patients chart. I agree with the above findings, impression and plan. (Patient seen earlier today. Signature stamp does not reflect patient encounter time.). - Renaldo Sauceda MD Subjective Subjective limited Objective Last 24 Hour Vital Signs Date Time Temp Pulse Resp B/P (MAP) Pulse Ox O2 Delivery O2 Flow Rate FiO2 11/14/17 08:11 Nasal Cannula 2.0 28 11/14/17 08:11 100 Nasal Cannula 2.0 28 11/14/17 05:34 84 141/81 11/14/17 04:00 97.9 84 20 141/81 (101) 99 97.9 11/14/17 00:00 97.8 96 20 145/86 (105) 99 97.8 11/13/17 21:11 104 154/88 11/13/17 21:00 Nasal Cannula 3.0 Nasal Cannula 3.0 11/13/17 20:00 98.6 104 23 154/88 (110) 94 98.6 11/13/17 16:00 97.9 94 20 134/75 (94) 100 97.9 11/13/17 13:59 99 141/81 11/13/17 12:00 98.1 99 20 141/81 (101) 100 98.1 Intake and Output 11/13/17 11/14/17 19:00 07:00 Intake Total 45 ml 470 ml Output Total 750 ml 380 ml Balance -705 ml 90 ml Free Water 190 ml IV Total 100 ml Tube Feeding 45 ml 180 ml Output Urine Total 750 ml 380 ml # Bowel Movements 3 1 Laboratory Tests Test 11/14/17 05:45 White Blood Count 11.3 K/UL (4.8-10.8) H Red Blood Count 3.52 M/UL (4.20-5.40) L Hemoglobin 10.6 G/DL (12.0-16.0) L Hematocrit 32.6 % (37.0-47.0) L Mean Corpuscular Volume 93 FL (80-99) Mean Corpuscular Hemoglobin 30.0 PG (27.0-31.0) Mean Corpuscular Hemoglobin Concent 32.4 G/DL (32.0-36.0) Red Cell Distribution Width 13.4 % (11.6-14.8) Platelet Count 522 K/UL (150-450) H Mean Platelet Volume 5.3 FL (6.5-10.1) L Neutrophils (%) (Auto) 69.7 % (45.0-75.0) Lymphocytes (%) (Auto) 19.9 % (20.0-45.0) L Monocytes (%) (Auto) 8.5 % (1.0-10.0) Eosinophils (%) (Auto) 0.7 % (0.0-3.0) Basophils (%) (Auto) 1.2 % (0.0-2.0) Sodium Level 145 MMOL/L (136-145) Potassium Level 3.5 MMOL/L (3.5-5.1) Chloride Level 109 MMOL/L (98-107) H Carbon Dioxide Level 32 MMOL/L (21-32) Anion Gap 4 mmol/L (5-15) L Blood Urea Nitrogen 23 mg/dL (7-18) H Creatinine 0.7 MG/DL (0.55-1.30) Estimat Glomerular Filtration Rate > 60 mL/min (>60) Glucose Level 97 MG/DL (74-106) Calcium Level 9.2 MG/DL (8.5-10.1) Height (Feet): 5 Height (Inches): 2.00 Weight (Pounds): 109 General Appearance: cachetic Cardiovascular: normal rate Respiratory/Chest: normal breath sounds, no respiratory distress Abdominal Exam: normal bowel sounds, non tender, soft Extremities: non-tender Risa Davenport WOOL DYER Nov 14, 2017 11:16
[2017-11-14 12:00] VITALS: BP 134/75
--- NOTE | 2017-11-14 12:33 | Pulmonology Progress Note ---
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 tube feeding need to find out from family if they want artificial feeding symptomatic treatment morphine prn Subjective ROS Limited/Unobtainable: No Constitutional: Reports: no symptoms HEENT: Repors: no symptoms Respiratory: Reports: no symptoms Allergies: Coded Allergies: ASPIRIN (Verified Allergy, Unknown, 10/30/17) PENICILLINS (Verified Allergy, Unknown, 10/30/17) Objective Last 24 Hour Vital Signs Date Time Temp Pulse Resp B/P (MAP) Pulse Ox O2 Delivery O2 Flow Rate FiO2 11/14/17 12:00 98.1 97 20 134/75 (94) 99 98.1 11/14/17 09:00 Nasal Cannula 3.0 Nasal Cannula 3.0 11/14/17 08:11 Nasal Cannula 2.0 28 11/14/17 08:11 100 Nasal Cannula 2.0 28 11/14/17 08:00 98.1 82 20 134/69 (90) 100 98.1 11/14/17 05:34 84 141/81 11/14/17 04:00 97.9 84 20 141/81 (101) 99 97.9 11/14/17 00:00 97.8 96 20 145/86 (105) 99 97.8 11/13/17 21:11 104 154/88 11/13/17 21:00 Nasal Cannula 3.0 Nasal Cannula 3.0 11/13/17 20:00 98.6 104 23 154/88 (110) 94 98.6 11/13/17 16:00 97.9 94 20 134/75 (94) 100 97.9 11/13/17 13:59 99 141/81 Intake and Output 11/13/17 11/14/17 19:00 07:00 Intake Total 45 ml 470 ml Output Total 750 ml 380 ml Balance -705 ml 90 ml Free Water 190 ml IV Total 100 ml Tube Feeding 45 ml 180 ml Output Urine Total 750 ml 380 ml # Bowel Movements 3 1 General Appearance: WD/WN HEENT: normocephalic, atraumatic Respiratory/Chest: chest wall non-tender, lungs clear, chest wall tender Breasts: no masses Cardiovascular: normal peripheral pulses Abdomen: normal bowel sounds, soft, non tender Genitourinary: normal external genitalia Extremities: no cyanosis Skin: no rash Microbiology Date/Time Source Procedure Growth Status 11/11/17 13:00 Sputum Gram Stain - Final Complete 11/11/17 13:00 Sputum Culture - Final Stenotrophomonas Maltophilia Complete 11/11/17 13:00 Urine,Clean Catch Urine Culture - Final NO GROWTH AFTER 48 HOURS Complete Laboratory Tests 11/14/17 05:45: White Blood Count 11.3H, Red Blood Count 3.52L, Hemoglobin 10.6L, Hematocrit 32.6L, Mean Corpuscular Volume 93, Mean Corpuscular Hemoglobin 30.0, Mean Corpuscular Hemoglobin Concent 32.4, Red Cell Distribution Width 13.4, Platelet Count 522H, Mean Platelet Volume 5.3L, Neutrophils (%) (Auto) 69.7, Lymphocytes (%) (Auto) 19.9L, Monocytes (%) (Auto) 8.5, Eosinophils (%) (Auto) 0.7, Basophils (%) (Auto) 1.2, Sodium Level 145, Potassium Level 3.5, Chloride Level 109H, Carbon Dioxide Level 32, Anion Gap 4L, Blood Urea Nitrogen 23H, Creatinine 0.7, Estimat Glomerular Filtration Rate > 60, Glucose Level 97, Calcium Level 9.2 Current Medications Medications (Trade) Dose Ordered Sig/Yung Route PRN Reason Start Time Stop Time Status Last Admin Dose Admin Acetaminophen (Tylenol) 650 mg Q6H PRN NG Mild Pain/Temp > 100.5 11/13/17 05:36 12/03/17 05:35 Chlorhexidine Gluconate (Sunita-Hex 2%) 1 applic DAILY@1999 TOPIC 11/13/17 20:00 11/29/17 19:59 11/13/17 20:13 Clonidine HCl (Catapres Tab) 0.1 mg Q4H PRN ORAL for SBP >160 11/13/17 09:00 12/01/17 12:59 Dextrose (Dextrose 50%) 25 ml Q1H PRN IV Hypoglycemia 11/13/17 06:00 12/03/17 17:59 Dextrose (Dextrose 50%) 50 ml Q1H PRN IV Hypoglycemia 11/13/17 06:00 12/03/17 17:59 Diltiazem HCl (Cardizem) 90 mg EVERY 8 HOURS NG 11/14/17 06:00 12/14/17 05:59 11/14/17 05:34 Heparin Sodium (Porcine) (Heparin 5000 units/ml) 5,000 units EVERY 12 HOURS SUBQ 11/13/17 09:00 11/29/17 08:59 11/14/17 10:42 Hydrocortisone (Solu-CORTEF) 25 mg BID IV 11/13/17 09:00 11/30/17 18:29 11/14/17 10:27 Insulin Aspart (NovoLOG) Q6HR SUBQ 11/13/17 06:00 12/03/17 19:59 11/14/17 05:45 Levetiracetam 100 ml @ 400 mls/hr Q8H IVPB 11/13/17 09:00 11/29/17 16:59 11/14/17 10:28 Lorazepam (Ativan 2mg/ml 1ml) 2 mg Q2H PRN IV For Anxiety 11/13/17 06:00 11/15/17 07:59 Morphine Sulfate (Morphine Sulfate) 4 mg Q1H PRN IVP for discomfort or RR>20 11/13/17 06:00 11/19/17 15:54 Nitroglycerin (Ntg) 0.4 mg Q5M PRN SL Prn Chest Pain 11/13/17 05:20 11/29/17 07:59 Ondansetron HCl (Zofran) 4 mg Q6H PRN IVP Nausea & Vomiting 11/13/17 05:36 11/29/17 05:35 Pantoprazole (Protonix) 40 mg DAILY IVP 11/13/17 09:00 12/02/17 08:59 11/14/17 10:27 Trimethoprim/ Sulfamethoxazole (Bactrim-DS) 2 tab TWICE A DAY ORAL 11/14/17 09:00 11/21/17 08:59 11/14/17 10:27 Evan Purcell MD Nov 14, 2017 12:33
--- NOTE | 2017-11-14 13:07 | General Progress Note ---
Assessment/Plan Problem List: (1) Renal insufficiency ICD Codes: N28.9 - Disorder of kidney and ureter, unspecified SNOMED: 892407326, 423032019 (2) UTI (urinary tract infection) ICD Codes: N39.0 - Urinary tract infection, site not specified SNOMED: 72303084 (3) Seizure ICD Codes: R56.9 - Unspecified convulsions SNOMED: 15389437 (4) HTN (hypertension) ICD Codes: I10 - Essential (primary) hypertension SNOMED: 37648401 (5) Diabetes ICD Codes: E11.9 - Type 2 diabetes mellitus without complications SNOMED: 41860678 Status: unchanged Assessment/Plan vent abx detox neph f/u wean vent cbc bmp am Subjective Constitutional: Reports: weakness Allergies: Coded Allergies: ASPIRIN (Verified Allergy, Unknown, 10/30/17) PENICILLINS (Verified Allergy, Unknown, 10/30/17) All Systems: reviewed and negative except above Subjective o2 nc ng lethargic Objective Last 24 Hour Vital Signs Date Time Temp Pulse Resp B/P (MAP) Pulse Ox O2 Delivery O2 Flow Rate FiO2 11/14/17 12:00 98.1 97 20 134/75 (94) 99 98.1 11/14/17 09:00 Nasal Cannula 3.0 Nasal Cannula 3.0 11/14/17 08:11 Nasal Cannula 2.0 28 11/14/17 08:11 100 Nasal Cannula 2.0 28 11/14/17 08:00 98.1 82 20 134/69 (90) 100 98.1 11/14/17 05:34 84 141/81 11/14/17 04:00 97.9 84 20 141/81 (101) 99 97.9 11/14/17 00:00 97.8 96 20 145/86 (105) 99 97.8 11/13/17 21:11 104 154/88 11/13/17 21:00 Nasal Cannula 3.0 Nasal Cannula 3.0 11/13/17 20:00 98.6 104 23 154/88 (110) 94 98.6 11/13/17 16:00 97.9 94 20 134/75 (94) 100 97.9 11/13/17 13:59 99 141/81 Intake and Output 11/13/17 11/14/17 19:00 07:00 Intake Total 45 ml 470 ml Output Total 750 ml 380 ml Balance -705 ml 90 ml Free Water 190 ml IV Total 100 ml Tube Feeding 45 ml 180 ml Output Urine Total 750 ml 380 ml # Bowel Movements 3 1 Laboratory Tests 11/14/17 05:45: White Blood Count 11.3H, Red Blood Count 3.52L, Hemoglobin 10.6L, Hematocrit 32.6L, Mean Corpuscular Volume 93, Mean Corpuscular Hemoglobin 30.0, Mean Corpuscular Hemoglobin Concent 32.4, Red Cell Distribution Width 13.4, Platelet Count 522H, Mean Platelet Volume 5.3L, Neutrophils (%) (Auto) 69.7, Lymphocytes (%) (Auto) 19.9L, Monocytes (%) (Auto) 8.5, Eosinophils (%) (Auto) 0.7, Basophils (%) (Auto) 1.2, Sodium Level 145, Potassium Level 3.5, Chloride Level 109H, Carbon Dioxide Level 32, Anion Gap 4L, Blood Urea Nitrogen 23H, Creatinine 0.7, Estimat Glomerular Filtration Rate > 60, Glucose Level 97, Calcium Level 9.2 Height (Feet): 5 Height (Inches): 2.00 Weight (Pounds): 109 General Appearance: lethargic EENT: normal ENT inspection Neck: normal alignment Cardiovascular: normal peripheral pulses, normal rate, regular rhythm Respiratory/Chest: chest wall non-tender, decreased breath sounds Abdomen: normal bowel sounds, non tender, soft Extremities: normal inspection Edema: no edema noted Arm (L), no edema noted Arm (R), no edema noted Leg (L), no edema noted Leg (R), no edema noted Pedal (L), no edema noted Pedal (R), no edema noted Generalized Neurologic: motor weakness Skin: normal pigmentation, warm/dry Josias Skinner DO Nov 14, 2017 13:07
[2017-11-14 16:00] VITALS: BP 128/73
--- NOTE | 2017-11-14 18:28 | Nephrology Progress Note ---
Assessment/Plan Assessment 1. Aspiration pneumonia. 2. hypernatremia 3. hypokalemia 4. Shock liver. . Plan plan free water check mg9 replace k monitoring renal function and urine out put avoid NSAID Subjective ROS Limited/Unobtainable: Yes Subjective extubated open her eyes with verbal stimuli not fallowing command Objective Objective Last 24 Hour Vital Signs Date Time Temp Pulse Resp B/P (MAP) Pulse Ox O2 Delivery O2 Flow Rate FiO2 11/14/17 16:00 97.9 94 20 128/73 (91) 100 97.9 11/14/17 14:39 97 134/75 11/14/17 12:00 98.1 97 20 134/75 (94) 99 98.1 11/14/17 09:00 Nasal Cannula 3.0 Nasal Cannula 3.0 11/14/17 08:11 Nasal Cannula 2.0 28 11/14/17 08:11 100 Nasal Cannula 2.0 28 11/14/17 08:00 98.1 82 20 134/69 (90) 100 98.1 11/14/17 05:34 84 141/81 11/14/17 04:00 97.9 84 20 141/81 (101) 99 97.9 11/14/17 00:00 97.8 96 20 145/86 (105) 99 97.8 11/13/17 21:11 104 154/88 11/13/17 21:00 Nasal Cannula 3.0 Nasal Cannula 3.0 11/13/17 20:00 98.6 104 23 154/88 (110) 94 98.6 Intake and Output 11/13/17 11/14/17 19:00 07:00 Intake Total 45 ml 470 ml Output Total 750 ml 380 ml Balance -705 ml 90 ml Free Water 190 ml IV Total 100 ml Tube Feeding 45 ml 180 ml Output Urine Total 750 ml 380 ml # Bowel Movements 3 1 Laboratory Tests 11/14/17 05:45: White Blood Count 11.3H, Red Blood Count 3.52L, Hemoglobin 10.6L, Hematocrit 32.6L, Mean Corpuscular Volume 93, Mean Corpuscular Hemoglobin 30.0, Mean Corpuscular Hemoglobin Concent 32.4, Red Cell Distribution Width 13.4, Platelet Count 522H, Mean Platelet Volume 5.3L, Neutrophils (%) (Auto) 69.7, Lymphocytes (%) (Auto) 19.9L, Monocytes (%) (Auto) 8.5, Eosinophils (%) (Auto) 0.7, Basophils (%) (Auto) 1.2, Sodium Level 145, Potassium Level 3.5, Chloride Level 109H, Carbon Dioxide Level 32, Anion Gap 4L, Blood Urea Nitrogen 23H, Creatinine 0.7, Estimat Glomerular Filtration Rate > 60, Glucose Level 97, Calcium Level 9.2 Height (Feet): 5 Height (Inches): 2.00 Weight (Pounds): 109 Objective HEAD AND NECK: No JVP. No LAD. No thyromegaly. Extraocular movement intact. Pupils are reactive to light and accommodation. LUNGS: Decreased breathing sounds on the right. Apparently, the patient received IJ placement this morning and later on patient developed a pneumothorax on the right side. ABDOMEN: Soft, nontender, and nondistended. EXTREMITIES: No edema. No clubbing. No cyanosis. The patient has Stefani Shabazz MD Nov 14, 2017 18:27
--- NOTE | 2017-11-14 19:31 | Cardiology Progress Note ---
Assessment/Plan Assessment/Plan 1. Sinus tachycardia, resolved, possibly due to cocaine intoxication, continue diltiazem, echo reveals normal left ventricular systolic function with LVEF of approximately 55%. 2. Acute hypoxemic respiratory failure due to aspiration PNA. 3. HTN, well controlled, continue Diltiazem. 4. Mild pulmonary hypertension with right ventricular systolic pressure measured at 42 mmHg. 5. Small right pneumothorax, resolved. Subjective Subjective No cardiac events. Drowsy. NG tube in place. Objective Last 24 Hour Vital Signs Date Time Temp Pulse Resp B/P (MAP) Pulse Ox O2 Delivery O2 Flow Rate FiO2 11/14/17 16:00 97.9 94 20 128/73 (91) 100 97.9 11/14/17 14:39 97 134/75 11/14/17 12:00 98.1 97 20 134/75 (94) 99 98.1 11/14/17 09:00 Nasal Cannula 3.0 Nasal Cannula 3.0 11/14/17 08:11 Nasal Cannula 2.0 28 11/14/17 08:11 100 Nasal Cannula 2.0 28 11/14/17 08:00 98.1 82 20 134/69 (90) 100 98.1 11/14/17 05:34 84 141/81 11/14/17 04:00 97.9 84 20 141/81 (101) 99 97.9 11/14/17 00:00 97.8 96 20 145/86 (105) 99 97.8 11/13/17 21:11 104 154/88 11/13/17 21:00 Nasal Cannula 3.0 Nasal Cannula 3.0 11/13/17 20:00 98.6 104 23 154/88 (110) 94 98.6 Intake and Output 11/13/17 11/14/17 19:00 07:00 Intake Total 45 ml 470 ml Output Total 750 ml 380 ml Balance -705 ml 90 ml Free Water 190 ml IV Total 100 ml Tube Feeding 45 ml 180 ml Output Urine Total 750 ml 380 ml # Bowel Movements 3 1 2D Echo: EF 60-65%, mild LVH, Mild AR, normal LVDD, RVSP 42 mmHg Laboratory Tests Test 11/14/17 05:45 White Blood Count 11.3 K/UL (4.8-10.8) H Red Blood Count 3.52 M/UL (4.20-5.40) L Hemoglobin 10.6 G/DL (12.0-16.0) L Hematocrit 32.6 % (37.0-47.0) L Mean Corpuscular Volume 93 FL (80-99) Mean Corpuscular Hemoglobin 30.0 PG (27.0-31.0) Mean Corpuscular Hemoglobin Concent 32.4 G/DL (32.0-36.0) Red Cell Distribution Width 13.4 % (11.6-14.8) Platelet Count 522 K/UL (150-450) H Mean Platelet Volume 5.3 FL (6.5-10.1) L Neutrophils (%) (Auto) 69.7 % (45.0-75.0) Lymphocytes (%) (Auto) 19.9 % (20.0-45.0) L Monocytes (%) (Auto) 8.5 % (1.0-10.0) Eosinophils (%) (Auto) 0.7 % (0.0-3.0) Basophils (%) (Auto) 1.2 % (0.0-2.0) Sodium Level 145 MMOL/L (136-145) Potassium Level 3.5 MMOL/L (3.5-5.1) Chloride Level 109 MMOL/L (98-107) H Carbon Dioxide Level 32 MMOL/L (21-32) Anion Gap 4 mmol/L (5-15) L Blood Urea Nitrogen 23 mg/dL (7-18) H Creatinine 0.7 MG/DL (0.55-1.30) Estimat Glomerular Filtration Rate > 60 mL/min (>60) Glucose Level 97 MG/DL (74-106) Calcium Level 9.2 MG/DL (8.5-10.1) Objective HEENT: Atraumatic and normocephalic. Anicteric. Pupils are equal, round, and reactive to light and accommodation.NG tube in place. NECK: JVP less than 5 cm, no carotid bruit. CARDIOVASCULAR: Normal S1, S2, regular rate rhythm, no murmurs, gallops, or rubs. LUNGS: Diminished breath sounds in both bases. ABDOMEN: Soft, nontender, and nondistended. Positive bowel sounds. EXTREMITIES: No evidence of edema, clubbing, or cyanosis. Geovany Brown MD Nov 14, 2017 19:30
[2017-11-14 20:00] VITALS: BP 150/77
--- NOTE | 2017-11-14 20:01 | Neurology Progress Note ---
Interim History Interim History Interim History Ms. Robertson is unresponsive. She continues to exhibit spontaneous eye opening and closing. She is still exhibiting decerebrate posturing. She has had no seizures or seizure like phenomena. There has been no improvement in her neurologic state. Review of Systems Neuro Review of Systems Unable to obtain. Objective Physical Exam Last Vital Signs Date Time Temp Pulse Resp B/P (MAP) Pulse Ox O2 Delivery O2 Flow Rate FiO2 11/14/17 16:00 97.9 94 20 128/73 (91) 100 97.9 11/14/17 09:00 Nasal Cannula 3.0 Nasal Cannula 3.0 11/14/17 08:11 28 Laboratory Tests Test 11/14/17 05:45 White Blood Count 11.3 K/UL (4.8-10.8) H Red Blood Count 3.52 M/UL (4.20-5.40) L Hemoglobin 10.6 G/DL (12.0-16.0) L Hematocrit 32.6 % (37.0-47.0) L Mean Corpuscular Volume 93 FL (80-99) Mean Corpuscular Hemoglobin 30.0 PG (27.0-31.0) Mean Corpuscular Hemoglobin Concent 32.4 G/DL (32.0-36.0) Red Cell Distribution Width 13.4 % (11.6-14.8) Platelet Count 522 K/UL (150-450) H Mean Platelet Volume 5.3 FL (6.5-10.1) L Neutrophils (%) (Auto) 69.7 % (45.0-75.0) Lymphocytes (%) (Auto) 19.9 % (20.0-45.0) L Monocytes (%) (Auto) 8.5 % (1.0-10.0) Eosinophils (%) (Auto) 0.7 % (0.0-3.0) Basophils (%) (Auto) 1.2 % (0.0-2.0) Sodium Level 145 MMOL/L (136-145) Potassium Level 3.5 MMOL/L (3.5-5.1) Chloride Level 109 MMOL/L (98-107) H Carbon Dioxide Level 32 MMOL/L (21-32) Anion Gap 4 mmol/L (5-15) L Blood Urea Nitrogen 23 mg/dL (7-18) H Creatinine 0.7 MG/DL (0.55-1.30) Estimat Glomerular Filtration Rate > 60 mL/min (>60) Glucose Level 97 MG/DL (74-106) Calcium Level 9.2 MG/DL (8.5-10.1) Neurologic Exam Objective PHYSICAL EXAMINATION: GENERAL: She is a well-developed, cachectic, lean, black lady, lying in bed, in no acute distress. HEAD: Normocephalic and atraumatic. EENT: Examination benign. NECK: No neck rigidity was observed. NEUROLOGIC EXAMINATION: MENTAL STATUS EXAMINATION: She was unresponsive even to deep painful stimuli. She was decerebrating spontaneously. Further mental status testing was impossible. SPEECH: Could not be tested. LANGUAGE: Could not be tested. CRANIAL NERVE EXAMINATION: II: She did not blink to threat. III, IV & : The external ocular movements were present on oculocephalic maneuvers. The pupils were 3 mm in diameter and reactive sluggishly to light. V & VII: The corneal reflexes were present, but significantly diminished. VIII: She did not respond to sounds and had no nystagmus. IX & X: The gag reflex was present but delayed on manipulating the endotracheal tube. XI: The sternocleidomastoids and trapezii could not be tested. XII: Could not be tested. MOTOR SYSTEM: The tone was increased in all four extremities with severe spasticity. Examination of muscle mass revealed generalized muscle wasting. Examination of power was impossible to perform because even on applying deep painful stimuli, no purposeful movements were seen. SENSORY EXAMINATION: She did not respond even to deep pain other than reflex withdrawal. REFLEXES: 1+ and bilaterally symmetrical at the biceps, triceps, brachioradialis , and knees. 0 at both ankles. The plantar responses were extensor bilaterally. COORDINATION, STANCE & GAIT: Could not be tested. Impression/Recommendations Diagnostic Impression 1. Ms. Polly Robertson is a 57-year-old, right-handed, black lady, who does have a past history of polysubstance abuse with her recent drug of choice being cocaine, a seizure disorder, and chronic pain, who was found down in her bathroom at home with vomitus in her mouth. She then was noted to stop breathing and this progressed to cardiac failure. The paramedics were called in and she had to have advanced cardiac life support before she could be resuscitated. She was then transported to the [facility] emergency room and on the way here she was noted to have a generalized seizure. Since then, she has had multiple seizures, however, at this point in time, they are well controlled on the present regimen. 2. She is unresponsive. She continues to exhibit spontaneous eye opening and closing. She is still exhibiting decerebrate posturing. She has had no seizures or seizure like phenomena. There has been no improvement in her neurologic state. 3. On neurological examination, at this time, she is unresponsive even to deep pain exhibiting only reflex withdrawal. She exhibits spontaneous decerebration. She does not demonstrate any focal or lateralizing findings. 4. The CT scan of the brain without contrast is benign for acute pathology. 5. Her latest laboratory data on my initial evaluation revealed that her WBC count was elevated to 17,600 with predominantly 79% being neutrophils and 15% being lymphocytes and monocytes. Her arterial blood gas revealed pCO2 low at 21.2, pO2 at 154, and pH of 7.49. Her chemistry panel revealed a creatinine elevated to 1.7. Her AST was elevated at 255, ALT elevated at 251, and alkaline phosphatase elevated at 142. Her albumin was low at 2.9. Her Urinalysis revealed 1+ leukocyte esterase, 20- 30 red blood cells, and 5-10 white blood cells per high-power field. The urine toxicology screen was positive for cocaine. 6. Her EEG done on 10/31/17 revealed a severe encephalopathy and bilateral frontal epileptogenic foci with inter-ictal discharges at times with a large field. 7. The patient's history, neurological examination, laboratory data and imaging studies are most compatible with seizures due to a hypoxic/ischemic cerebral insult and/or cocaine intoxication. She is seizure free on Keppra. 8. 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 9. The prognosis for recovery of cerebral function is dismal. Recommendations 1. Continue present management. 2. Continue Keppra 1 G intravenously every 8 hours. 3. Keep comfortable. Denisse Lester M.D., M.S.P.Zackery. DENISSE LESTER Nov 14, 2017 20:01
[2017-11-14] MEDS: Dyna-Hex 2% Top Sol 2oz TOPIC SCH (21:05)
[2017-11-15] VITALS: BP 136/74
[2017-11-15] MEDS: levETIRAcetam 1,000mg/NS100ml 100 ML IVPB SCH ×3 (00:24→17:17)
[2017-11-15 04:00] VITALS: BP 146/77
[2017-11-15] MEDS: dilTIAZem HCl 60mg tab NG SCH ×3 (06:05→22:04)
--- NOTE | 2017-11-15 06:23 | General Progress Note ---
Assessment/Plan Problem List: (1) Hypoglycemia ICD Codes: E16.2 - Hypoglycemia, unspecified SNOMED: 332517685 (2) SLE (systemic lupus erythematosus) ICD Codes: M32.9 - Systemic lupus erythematosus, unspecified SNOMED: 11090558 (3) Cocaine abuse ICD Codes: F14.10 - Cocaine abuse, uncomplicated SNOMED: 73494142 (4) Elevated transaminase measurement ICD Codes: R74.0 - Nonspecific elevation of levels of transaminase and lactic acid dehydrogenase [LDH] SNOMED: 865598232, 582255165 (5) Diabetes ICD Codes: E11.9 - Type 2 diabetes mellitus without complications SNOMED: 46045762 (6) Pneumothorax on right ICD Codes: J93.9 - Pneumothorax, unspecified SNOMED: 965007917 (7) Seizure ICD Codes: R56.9 - Unspecified convulsions SNOMED: 85352325 Assessment/Plan - no longer on steroids - continue BG monitoring every 6 hours - hypoglycemia protocol - NISS low dose Subjective ROS Limited/Unobtainable: Yes Allergies: Coded Allergies: ASPIRIN (Verified Allergy, Unknown, 10/30/17) PENICILLINS (Verified Allergy, Unknown, 10/30/17) Subjective events noted neuro status unchanged Objective Last 24 Hour Vital Signs Date Time Temp Pulse Resp B/P (MAP) Pulse Ox O2 Delivery O2 Flow Rate FiO2 11/15/17 06:05 104 146/77 11/15/17 04:00 99.5 104 24 146/77 (100) 100 99.5 11/15/17 00:00 99.1 85 22 136/74 (94) 94 99.1 11/14/17 21:06 88 150/77 11/14/17 21:00 Nasal Cannula 3.0 Nasal Cannula 3.0 11/14/17 20:00 99.9 88 24 150/77 (101) 94 99.9 11/14/17 16:00 97.9 94 20 128/73 (91) 100 97.9 11/14/17 14:39 97 134/75 11/14/17 12:00 98.1 97 20 134/75 (94) 99 98.1 11/14/17 09:00 Nasal Cannula 3.0 Nasal Cannula 3.0 11/14/17 08:11 Nasal Cannula 2.0 28 11/14/17 08:11 100 Nasal Cannula 2.0 28 11/14/17 08:00 98.1 82 20 134/69 (90) 100 98.1 Intake and Output 11/14/17 11/15/17 19:00 07:00 Intake Total 845 ml 625 ml Output Total 800 ml Balance 45 ml 625 ml Free Water 220 ml IV Total 800 ml Tube Feeding 45 ml 405 ml Output Urine Total 800 ml # Bowel Movements 2 Laboratory Tests 11/15/17 06:05: White Blood Count [Pending], Red Blood Count [Pending], Hemoglobin [Pending], Hematocrit [Pending], Mean Corpuscular Volume [Pending], Mean Corpuscular Hemoglobin [Pending], Mean Corpuscular Hemoglobin Concent [Pending], Red Cell Distribution Width [Pending], Platelet Count [Pending], Mean Platelet Volume [ Pending], Neutrophils (%) (Auto) [Pending], Lymphocytes (%) (Auto) [Pending], Monocytes (%) (Auto) [Pending], Eosinophils (%) (Auto) [Pending], Basophils (%) (Auto) [Pending], Sodium Level [Pending], Potassium Level [Pending], Chloride Level [Pending], Carbon Dioxide Level [Pending], Blood Urea Nitrogen [Pending], Creatinine [Pending], Estimat Glomerular Filtration Rate [Pending], Glucose Level [Pending], Calcium Level [Pending] Height (Feet): 5 Height (Inches): 2.00 Weight (Pounds): 116 Neck: normal alignment Cardiovascular: normal rate Respiratory/Chest: lungs clear Abdomen: normal bowel sounds Objective Current Medications Medications (Trade) Dose Ordered Sig/Yung Route PRN Reason Start Time Stop Time Status Last Admin Dose Admin Acetaminophen (Tylenol) 650 mg Q6H PRN NG Mild Pain/Temp > 100.5 11/13/17 05:36 12/03/17 05:35 Chlorhexidine Gluconate (Sunita-Hex 2%) 1 applic DAILY@1999 TOPIC 11/13/17 20:00 11/29/17 19:59 11/14/17 21:05 Clonidine HCl (Catapres Tab) 0.1 mg Q4H PRN ORAL for SBP >160 11/13/17 09:00 12/01/17 12:59 Diltiazem HCl (Cardizem) 90 mg EVERY 8 HOURS NG 11/14/17 06:00 12/14/17 05:59 11/15/17 06:05 Heparin Sodium (Porcine) (Heparin 5000 units/ml) 5,000 units EVERY 12 HOURS SUBQ 11/13/17 09:00 11/29/17 08:59 11/14/17 21:06 Levetiracetam 100 ml @ 400 mls/hr Q8H IVPB 11/13/17 09:00 11/29/17 16:59 11/15/17 00:24 Lorazepam (Ativan 2mg/ml 1ml) 2 mg Q2H PRN IV For Anxiety 11/13/17 06:00 11/15/17 07:59 Morphine Sulfate (Morphine Sulfate) 4 mg Q1H PRN IVP for discomfort or RR>20 11/13/17 06:00 11/19/17 15:54 Trimethoprim/ Sulfamethoxazole (Bactrim-DS) 2 tab TWICE A DAY ORAL 11/14/17 09:00 11/21/17 08:59 11/14/17 17:20 Item Value Date Time Bedside Blood Glucose 101 mg/dl 11/15/17 0600 Bedside Blood Glucose 114 mg/dl 11/15/17 0000 Bedside Blood Glucose 106 mg/dl 11/14/17 1800 Bedside Blood Glucose 106 mg/dl 11/14/17 1200 Bedside Blood Glucose 118 mg/dl 11/14/17 0545 Bedside Blood Glucose 100 mg/dl 11/14/17 0054 Salvador Garcia MD Nov 15, 2017 06:23
[2017-11-15 06:35] LABS: EOSINOPHILS % (AUTO) 0.3 % (0.0-3.0); HEMATOCRIT 34.5 % (37.0-47.0); HEMOGLOBIN 11.1 G/DL (12.0-16.0); MEAN CORPUSCULAR VOLUME 93 FL (80-99); MONOCYTES % (AUTO) 6.3 % (1.0-10.0); NEUTROPHILS % (AUTO) 82.3 % (45.0-75.0); PLATELET COUNT 577 K/UL (150-450); RED BLOOD COUNT 3.72 M/UL (4.20-5.40); RED CELL DISTRIBUTION WIDTH 13.4 % (11.6-14.8); WHITE BLOOD COUNT 16.7 K/UL (4.8-10.8)
[2017-11-15 06:44] LABS: ANION GAP 8 mmol/L (5-15); BLOOD UREA NITROGEN 23 mg/dL (7-18); CALCIUM 9.1 MG/DL (8.5-10.1); CARBON DIOXIDE 29 MMOL/L (21-32); CHLORIDE 105 MMOL/L (98-107); CREATININE 0.8 MG/DL (0.55-1.30); POTASSIUM 4.3 MMOL/L (3.5-5.1); SODIUM 142 MMOL/L (136-145)
[2017-11-15 08:00] VITALS: BP 129/67
[2017-11-15] MEDS: Bactrim-DS 1 tab ORAL SCH ×4 (08:46→20:53)
[2017-11-15] MEDS: Heparin 5000 units/ml inj SUBQ SCH ×2 (08:47→20:52)
--- NOTE | 2017-11-15 08:59 | Infectious Diseases Prog Note ---
Assessment/Plan Assessment/Plan 57 yo female who presented to the ED on 10/30/17 after pulmonary arrest. Sepsis - Probable Asp PNA On Abx 10/30 Sputum Cultures - Predominantly NF - +1 Steno Will hold off Tx of Steno as patient improving 10/31 Urine Cx - NGTD Leukocytosis - WBCs 16 after seizure No Fevers Seizures - Had Seizure on route to ED 10/30/17 and in the ICU as well Drug abuse - Pos for cocaine Arthritis Chronic pain. P: - Continue Bactrim DS 2 Tab BID #03/30 for Stenotrophomonas in the lungs - S/P Levofloxacin # - 11/04 Ceftriaxone #3 - D/C Flagyl #10 for asp PNA - 10/31 Vancomycin #1 - 10/31 Aztreonam - 10/30 SP Ceftriaxone - Monitor CBC and Temps - Vent management per pulm - Poor prognosis We will continue to follow the patient during this hospitalization. Subjective Allergies: Coded Allergies: ASPIRIN (Verified Allergy, Unknown, 10/30/17) PENICILLINS (Verified Allergy, Unknown, 10/30/17) Subjective On 3L NC No Clinical change in mental status Afebrile Objective Vital Signs Last 24 Hour Vital Signs Date Time Temp Pulse Resp B/P (MAP) Pulse Ox O2 Delivery O2 Flow Rate FiO2 11/15/17 06:05 104 146/77 11/15/17 04:00 99.5 104 24 146/77 (100) 100 99.5 11/15/17 00:00 99.1 85 22 136/74 (94) 94 99.1 11/14/17 21:06 88 150/77 11/14/17 21:00 Nasal Cannula 3.0 Nasal Cannula 3.0 11/14/17 20:00 99.9 88 24 150/77 (101) 94 99.9 11/14/17 16:00 97.9 94 20 128/73 (91) 100 97.9 11/14/17 14:39 97 134/75 11/14/17 12:00 98.1 97 20 134/75 (94) 99 98.1 11/14/17 09:00 Nasal Cannula 3.0 Nasal Cannula 3.0 Height (Feet): 5 Height (Inches): 2.00 Weight (Pounds): 116 Objective Gen: NAD, No clinical changes HEENT: NCAT, MMM, eye open at times not tracking LUNGS: Mechanical breath sounds, No Wheezing CARDS: RRR, S1, S2 ABD: Soft, NT, ND, + BS NEURO: Not responsive Laboratory Tests Test 11/15/17 06:05 White Blood Count 16.7 K/UL (4.8-10.8) H Red Blood Count 3.72 M/UL (4.20-5.40) L Hemoglobin 11.1 G/DL (12.0-16.0) L Hematocrit 34.5 % (37.0-47.0) L Mean Corpuscular Volume 93 FL (80-99) Mean Corpuscular Hemoglobin 29.9 PG (27.0-31.0) Mean Corpuscular Hemoglobin Concent 32.2 G/DL (32.0-36.0) Red Cell Distribution Width 13.4 % (11.6-14.8) Platelet Count 577 K/UL (150-450) H Mean Platelet Volume 5.4 FL (6.5-10.1) L Neutrophils (%) (Auto) 82.3 % (45.0-75.0) H Lymphocytes (%) (Auto) 10.0 % (20.0-45.0) L Monocytes (%) (Auto) 6.3 % (1.0-10.0) Eosinophils (%) (Auto) 0.3 % (0.0-3.0) Basophils (%) (Auto) 1.0 % (0.0-2.0) Sodium Level 142 MMOL/L (136-145) Potassium Level 4.3 MMOL/L (3.5-5.1) Chloride Level 105 MMOL/L (98-107) Carbon Dioxide Level 29 MMOL/L (21-32) Anion Gap 8 mmol/L (5-15) Blood Urea Nitrogen 23 mg/dL (7-18) H Creatinine 0.8 MG/DL (0.55-1.30) Estimat Glomerular Filtration Rate > 60 mL/min (>60) Glucose Level 102 MG/DL (74-106) Calcium Level 9.1 MG/DL (8.5-10.1) Current Medications Medications (Trade) Dose Ordered Sig/Yung Route PRN Reason Start Time Stop Time Status Last Admin Dose Admin Acetaminophen (Tylenol) 650 mg Q6H PRN NG Mild Pain/Temp > 100.5 11/13/17 05:36 12/03/17 05:35 Chlorhexidine Gluconate (Sunita-Hex 2%) 1 applic DAILY@2000 TOPIC 11/13/17 20:00 11/29/17 19:59 11/14/17 21:05 Clonidine HCl (Catapres Tab) 0.1 mg Q4H PRN ORAL for SBP >160 11/13/17 09:00 12/01/17 12:59 Diltiazem HCl (Cardizem) 90 mg EVERY 8 HOURS NG 11/14/17 06:00 12/14/17 05:59 11/15/17 06:05 Heparin Sodium (Porcine) (Heparin 5000 units/ml) 5,000 units EVERY 12 HOURS SUBQ 11/13/17 09:00 11/29/17 08:59 11/15/17 08:47 Levetiracetam 100 ml @ 400 mls/hr Q8H IVPB 11/13/17 09:00 11/29/17 16:59 11/15/17 08:46 Morphine Sulfate (Morphine Sulfate) 4 mg Q1H PRN IVP for discomfort or RR>20 11/13/17 06:00 11/19/17 15:54 Trimethoprim/ Sulfamethoxazole (Bactrim-DS) 2 tab TWICE A DAY ORAL 11/14/17 09:00 11/21/17 08:59 11/15/17 08:46 Gutierrez Sifuentes MD Nov 15, 2017 08:59
[2017-11-15 12:00] VITALS: BP 117/77
--- NOTE | 2017-11-15 12:49 | General Progress Note ---
Assessment/Plan Problem List: (1) Renal insufficiency ICD Codes: N28.9 - Disorder of kidney and ureter, unspecified SNOMED: 291690805, 043548645 (2) UTI (urinary tract infection) ICD Codes: N39.0 - Urinary tract infection, site not specified SNOMED: 06385659 (3) Seizure ICD Codes: R56.9 - Unspecified convulsions SNOMED: 67819924 (4) HTN (hypertension) ICD Codes: I10 - Essential (primary) hypertension SNOMED: 48672834 (5) Diabetes ICD Codes: E11.9 - Type 2 diabetes mellitus without complications SNOMED: 15693997 Status: unchanged Assessment/Plan vent abx detox neph f/u wean vent cbc bmp am Subjective Constitutional: Reports: weakness Allergies: Coded Allergies: ASPIRIN (Verified Allergy, Unknown, 10/30/17) PENICILLINS (Verified Allergy, Unknown, 10/30/17) All Systems: reviewed and negative except above Subjective o2 nc ng lethargic Objective Last 24 Hour Vital Signs Date Time Temp Pulse Resp B/P (MAP) Pulse Ox O2 Delivery O2 Flow Rate FiO2 11/15/17 12:00 97.9 97 21 117/77 (90) 95 97.9 11/15/17 08:00 Nasal Cannula 3.0 Nasal Cannula 3.0 11/15/17 08:00 98.2 99 24 129/67 (87) 98 98.2 11/15/17 07:44 100 Nasal Cannula 2.0 28 11/15/17 07:44 Nasal Cannula 2.0 28 11/15/17 06:05 104 146/77 11/15/17 04:00 99.5 104 24 146/77 (100) 100 99.5 11/15/17 00:00 99.1 85 22 136/74 (94) 94 99.1 11/14/17 21:06 88 150/77 11/14/17 21:00 Nasal Cannula 3.0 Nasal Cannula 3.0 11/14/17 20:00 99.9 88 24 150/77 (101) 94 99.9 11/14/17 16:00 97.9 94 20 128/73 (91) 100 97.9 11/14/17 14:39 97 134/75 Intake and Output 11/14/17 11/15/17 19:00 07:00 Intake Total 845 ml 775 ml Output Total 800 ml Balance 45 ml 775 ml Free Water 280 ml IV Total 800 ml Tube Feeding 45 ml 495 ml Output Urine Total 800 ml # Bowel Movements 2 Laboratory Tests 11/15/17 06:05: White Blood Count 16.7H, Red Blood Count 3.72L, Hemoglobin 11.1L, Hematocrit 34.5L, Mean Corpuscular Volume 93, Mean Corpuscular Hemoglobin 29.9, Mean Corpuscular Hemoglobin Concent 32.2, Red Cell Distribution Width 13.4, Platelet Count 577H, Mean Platelet Volume 5.4L, Neutrophils (%) (Auto) 82.3H, Lymphocytes (%) (Auto) 10.0L, Monocytes (%) (Auto) 6.3, Eosinophils (%) (Auto) 0.3, Basophils (%) (Auto) 1.0, Sodium Level 142, Potassium Level 4.3, Chloride Level 105, Carbon Dioxide Level 29, Anion Gap 8, Blood Urea Nitrogen 23H, Creatinine 0.8, Estimat Glomerular Filtration Rate > 60, Glucose Level 102, Calcium Level 9.1 Height (Feet): 5 Height (Inches): 2.00 Weight (Pounds): 116 General Appearance: lethargic EENT: normal ENT inspection Neck: normal alignment Cardiovascular: normal peripheral pulses, normal rate, regular rhythm Respiratory/Chest: chest wall non-tender, lungs clear, normal breath sounds Abdomen: normal bowel sounds, non tender, soft Extremities: normal inspection Edema: no edema noted Arm (L), no edema noted Arm (R), no edema noted Leg (L), no edema noted Leg (R), no edema noted Pedal (L), no edema noted Pedal (R), no edema noted Generalized Neurologic: motor weakness Skin: normal pigmentation, warm/dry Josias Skinner DO Nov 15, 2017 12:49
--- NOTE | 2017-11-15 13:17 | GI Progress Note ---
Assessment/Plan Problems: (1) Diabetes ICD Codes: E11.9 - Type 2 diabetes mellitus without complications SNOMED: 79669080 (2) Cocaine abuse ICD Codes: F14.10 - Cocaine abuse, uncomplicated SNOMED: 23480117 (3) Transaminitis ICD Codes: R74.0 - Nonspecific elevation of levels of transaminase and lactic acid dehydrogenase [LDH] SNOMED: 435921821, 876354601 (4) Anemia ICD Codes: D64.9 - Anemia, unspecified SNOMED: 585374393 Status: not improved, unchanged Status Narrative Discussed with Dr. Sauceda. Assessment/Plan NGTFs fu labs supportive care peg if needed poor prognosis The patient was seen and examined at bedside and all new and available data was reviewed in the patients chart. I agree with the above findings, impression and plan. (Patient seen earlier today. Signature stamp does not reflect patient encounter time.). - Renaldo Sauceda MD Subjective Subjective limited Objective Last 24 Hour Vital Signs Date Time Temp Pulse Resp B/P (MAP) Pulse Ox O2 Delivery O2 Flow Rate FiO2 11/15/17 12:00 97.9 97 21 117/77 (90) 95 97.9 11/15/17 08:00 Nasal Cannula 3.0 Nasal Cannula 3.0 11/15/17 08:00 98.2 99 24 129/67 (87) 98 98.2 11/15/17 07:44 100 Nasal Cannula 2.0 28 11/15/17 07:44 Nasal Cannula 2.0 28 11/15/17 06:05 104 146/77 11/15/17 04:00 99.5 104 24 146/77 (100) 100 99.5 11/15/17 00:00 99.1 85 22 136/74 (94) 94 99.1 11/14/17 21:06 88 150/77 11/14/17 21:00 Nasal Cannula 3.0 Nasal Cannula 3.0 11/14/17 20:00 99.9 88 24 150/77 (101) 94 99.9 11/14/17 16:00 97.9 94 20 128/73 (91) 100 97.9 11/14/17 14:39 97 134/75 Intake and Output 11/14/17 11/15/17 19:00 07:00 Intake Total 845 ml 775 ml Output Total 800 ml Balance 45 ml 775 ml Free Water 280 ml IV Total 800 ml Tube Feeding 45 ml 495 ml Output Urine Total 800 ml # Bowel Movements 2 Laboratory Tests Test 11/15/17 06:05 White Blood Count 16.7 K/UL (4.8-10.8) H Red Blood Count 3.72 M/UL (4.20-5.40) L Hemoglobin 11.1 G/DL (12.0-16.0) L Hematocrit 34.5 % (37.0-47.0) L Mean Corpuscular Volume 93 FL (80-99) Mean Corpuscular Hemoglobin 29.9 PG (27.0-31.0) Mean Corpuscular Hemoglobin Concent 32.2 G/DL (32.0-36.0) Red Cell Distribution Width 13.4 % (11.6-14.8) Platelet Count 577 K/UL (150-450) H Mean Platelet Volume 5.4 FL (6.5-10.1) L Neutrophils (%) (Auto) 82.3 % (45.0-75.0) H Lymphocytes (%) (Auto) 10.0 % (20.0-45.0) L Monocytes (%) (Auto) 6.3 % (1.0-10.0) Eosinophils (%) (Auto) 0.3 % (0.0-3.0) Basophils (%) (Auto) 1.0 % (0.0-2.0) Sodium Level 142 MMOL/L (136-145) Potassium Level 4.3 MMOL/L (3.5-5.1) Chloride Level 105 MMOL/L (98-107) Carbon Dioxide Level 29 MMOL/L (21-32) Anion Gap 8 mmol/L (5-15) Blood Urea Nitrogen 23 mg/dL (7-18) H Creatinine 0.8 MG/DL (0.55-1.30) Estimat Glomerular Filtration Rate > 60 mL/min (>60) Glucose Level 102 MG/DL (74-106) Calcium Level 9.1 MG/DL (8.5-10.1) Height (Feet): 5 Height (Inches): 2.00 Weight (Pounds): 116 Risa Davenport JUSTICE PROFESSOR Nov 15, 2017 13:17
--- NOTE | 2017-11-15 14:19 | Pulmonology Progress Note ---
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 tube feeding pt's two sons don't want artificial feeding symptomatic treatment morphine prn Subjective ROS Limited/Unobtainable: Yes Interval Events: late note for 11/16 Constitutional: Reports: no symptoms HEENT: Repors: no symptoms Respiratory: Reports: no symptoms Allergies: Coded Allergies: ASPIRIN (Verified Allergy, Unknown, 10/30/17) PENICILLINS (Verified Allergy, Unknown, 10/30/17) Objective Last 24 Hour Vital Signs Date Time Temp Pulse Resp B/P (MAP) Pulse Ox O2 Delivery O2 Flow Rate FiO2 11/15/17 12:00 97.9 97 21 117/77 (90) 95 97.9 11/15/17 08:00 Nasal Cannula 3.0 Nasal Cannula 3.0 11/15/17 08:00 98.2 99 24 129/67 (87) 98 98.2 11/15/17 07:44 100 Nasal Cannula 2.0 28 11/15/17 07:44 Nasal Cannula 2.0 28 11/15/17 06:05 104 146/77 11/15/17 04:00 99.5 104 24 146/77 (100) 100 99.5 11/15/17 00:00 99.1 85 22 136/74 (94) 94 99.1 11/14/17 21:06 88 150/77 11/14/17 21:00 Nasal Cannula 3.0 Nasal Cannula 3.0 11/14/17 20:00 99.9 88 24 150/77 (101) 94 99.9 11/14/17 16:00 97.9 94 20 128/73 (91) 100 97.9 11/14/17 14:39 97 134/75 Intake and Output 11/14/17 11/15/17 19:00 07:00 Intake Total 845 ml 775 ml Output Total 800 ml Balance 45 ml 775 ml Free Water 280 ml IV Total 800 ml Tube Feeding 45 ml 495 ml Output Urine Total 800 ml # Bowel Movements 2 General Appearance: cachetic HEENT: normocephalic, atraumatic Respiratory/Chest: chest wall non-tender, lungs clear, normal breath sounds Cardiovascular: normal peripheral pulses, normal rate, no JVD Abdomen: no mass Extremities: no clubbing Skin: no lesions Laboratory Tests 11/15/17 06:05: White Blood Count 16.7H, Red Blood Count 3.72L, Hemoglobin 11.1L, Hematocrit 34.5L, Mean Corpuscular Volume 93, Mean Corpuscular Hemoglobin 29.9, Mean Corpuscular Hemoglobin Concent 32.2, Red Cell Distribution Width 13.4, Platelet Count 577H, Mean Platelet Volume 5.4L, Neutrophils (%) (Auto) 82.3H, Lymphocytes (%) (Auto) 10.0L, Monocytes (%) (Auto) 6.3, Eosinophils (%) (Auto) 0.3, Basophils (%) (Auto) 1.0, Sodium Level 142, Potassium Level 4.3, Chloride Level 105, Carbon Dioxide Level 29, Anion Gap 8, Blood Urea Nitrogen 23H, Creatinine 0.8, Estimat Glomerular Filtration Rate > 60, Glucose Level 102, Calcium Level 9.1 Current Medications Medications (Trade) Dose Ordered Sig/Yung Route PRN Reason Start Time Stop Time Status Last Admin Dose Admin Acetaminophen (Tylenol) 650 mg Q6H PRN NG Mild Pain/Temp > 100.5 11/13/17 05:36 12/03/17 05:35 Chlorhexidine Gluconate (Sunita-Hex 2%) 1 applic DAILY@2000 TOPIC 11/13/17 20:00 11/29/17 19:59 11/14/17 21:05 Clonidine HCl (Catapres Tab) 0.1 mg Q4H PRN ORAL for SBP >160 11/13/17 09:00 12/01/17 12:59 Diltiazem HCl (Cardizem) 90 mg EVERY 8 HOURS NG 11/14/17 06:00 12/14/17 05:59 11/15/17 06:05 Heparin Sodium (Porcine) (Heparin 5000 units/ml) 5,000 units EVERY 12 HOURS SUBQ 11/13/17 09:00 11/29/17 08:59 11/15/17 08:47 Levetiracetam 100 ml @ 400 mls/hr Q8H IVPB 11/13/17 09:00 11/29/17 16:59 11/15/17 08:46 Morphine Sulfate (Morphine Sulfate) 4 mg Q1H PRN IVP for discomfort or RR>20 11/13/17 06:00 11/19/17 15:54 Trimethoprim/ Sulfamethoxazole (Bactrim-DS) 2 tab Q12HR ORAL 11/15/17 21:00 11/21/17 08:59 Evan Purcell MD Nov 15, 2017 14:19
[2017-11-15 16:00] VITALS: BP 127/68
--- NOTE | 2017-11-15 18:49 | Neurology Progress Note ---
Interim History Interim History Interim History Ms. Robertson is unresponsive. She continues to exhibit spontaneous eye opening and closing. She is still exhibiting decerebrate posturing. She has had no seizures or seizure like phenomena. There has been no improvement in her neurologic state. Review of Systems Neuro Review of Systems Unable to obtain. Objective Physical Exam Last Vital Signs Date Time Temp Pulse Resp B/P (MAP) Pulse Ox O2 Delivery O2 Flow Rate FiO2 11/15/17 16:00 98.6 72 19 127/68 (87) 95 98.6 11/15/17 08:00 Nasal Cannula 3.0 Nasal Cannula 3.0 11/15/17 07:44 28 Laboratory Tests Test 11/15/17 06:05 White Blood Count 16.7 K/UL (4.8-10.8) H Red Blood Count 3.72 M/UL (4.20-5.40) L Hemoglobin 11.1 G/DL (12.0-16.0) L Hematocrit 34.5 % (37.0-47.0) L Mean Corpuscular Volume 93 FL (80-99) Mean Corpuscular Hemoglobin 29.9 PG (27.0-31.0) Mean Corpuscular Hemoglobin Concent 32.2 G/DL (32.0-36.0) Red Cell Distribution Width 13.4 % (11.6-14.8) Platelet Count 577 K/UL (150-450) H Mean Platelet Volume 5.4 FL (6.5-10.1) L Neutrophils (%) (Auto) 82.3 % (45.0-75.0) H Lymphocytes (%) (Auto) 10.0 % (20.0-45.0) L Monocytes (%) (Auto) 6.3 % (1.0-10.0) Eosinophils (%) (Auto) 0.3 % (0.0-3.0) Basophils (%) (Auto) 1.0 % (0.0-2.0) Sodium Level 142 MMOL/L (136-145) Potassium Level 4.3 MMOL/L (3.5-5.1) Chloride Level 105 MMOL/L (98-107) Carbon Dioxide Level 29 MMOL/L (21-32) Anion Gap 8 mmol/L (5-15) Blood Urea Nitrogen 23 mg/dL (7-18) H Creatinine 0.8 MG/DL (0.55-1.30) Estimat Glomerular Filtration Rate > 60 mL/min (>60) Glucose Level 102 MG/DL (74-106) Calcium Level 9.1 MG/DL (8.5-10.1) Neurologic Exam Objective PHYSICAL EXAMINATION: GENERAL: She is a well-developed, cachectic, lean, black lady, lying in bed, in no acute distress. HEAD: Normocephalic and atraumatic. EENT: Examination benign. NECK: No neck rigidity was observed. NEUROLOGIC EXAMINATION: MENTAL STATUS EXAMINATION: She was unresponsive even to deep painful stimuli. She was decerebrating spontaneously. Further mental status testing was impossible. SPEECH: Could not be tested. LANGUAGE: Could not be tested. CRANIAL NERVE EXAMINATION: II: She did not blink to threat. III, IV & : The external ocular movements were present on oculocephalic maneuvers. The pupils were 3 mm in diameter and reactive sluggishly to light. V & VII: The corneal reflexes were present, but significantly diminished. VIII: She did not respond to sounds and had no nystagmus. IX & X: The gag reflex was present but delayed on manipulating the endotracheal tube. XI: The sternocleidomastoids and trapezii could not be tested. XII: Could not be tested. MOTOR SYSTEM: The tone was increased in all four extremities with severe spasticity. Examination of muscle mass revealed generalized muscle wasting. Examination of power was impossible to perform because even on applying deep painful stimuli, no purposeful movements were seen. SENSORY EXAMINATION: She did not respond even to deep pain other than reflex withdrawal. REFLEXES: 1+ and bilaterally symmetrical at the biceps, triceps, brachioradialis , and knees. 0 at both ankles. The plantar responses were extensor bilaterally. COORDINATION, STANCE & GAIT: Could not be tested. Impression/Recommendations Diagnostic Impression 1. Ms. Polly Robertson is a 57-year-old, right-handed, black lady, who does have a past history of polysubstance abuse with her recent drug of choice being cocaine, a seizure disorder, and chronic pain, who was found down in her bathroom at home with vomitus in her mouth. She then was noted to stop breathing and this progressed to cardiac failure. The paramedics were called in and she had to have advanced cardiac life support before she could be resuscitated. She was then transported to the [facility] emergency room and on the way here she was noted to have a generalized seizure. Since then, she has had multiple seizures, however, at this point in time, they are well controlled on the present regimen. 2. She is unresponsive. She continues to exhibit spontaneous eye opening and closing. She is still exhibiting decerebrate posturing. She has had no seizures or seizure like phenomena. There has been no improvement in her neurologic state. 3. On neurological examination, at this time, she is unresponsive even to deep pain exhibiting only reflex withdrawal. She exhibits spontaneous decerebration. She does not demonstrate any focal or lateralizing findings. 4. The CT scan of the brain without contrast is benign for acute pathology. 5. Her latest laboratory data on my initial evaluation revealed that her WBC count was elevated to 17,600 with predominantly 79% being neutrophils and 15% being lymphocytes and monocytes. Her arterial blood gas revealed pCO2 low at 21.2, pO2 at 154, and pH of 7.49. Her chemistry panel revealed a creatinine elevated to 1.7. Her AST was elevated at 255, ALT elevated at 251, and alkaline phosphatase elevated at 142. Her albumin was low at 2.9. Her Urinalysis revealed 1+ leukocyte esterase, 20- 30 red blood cells, and 5-10 white blood cells per high-power field. The urine toxicology screen was positive for cocaine. 6. Her EEG done on 10/31/17 revealed a severe encephalopathy and bilateral frontal epileptogenic foci with inter-ictal discharges at times with a large field. 7. The patient's history, neurological examination, laboratory data and imaging studies are most compatible with seizures due to a hypoxic/ischemic cerebral insult and/or cocaine intoxication. She is seizure free on Keppra. 8. 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 9. The prognosis for recovery of cerebral function is dismal. Recommendations 1. Continue present management. 2. Continue Keppra 1 G intravenously every 8 hours. 3. Keep comfortable. Denisse Lester M.D., M.S.P.Zackery. DENISSE LESTER Nov 15, 2017 18:49
[2017-11-15 20:00] VITALS: BP 133/77
[2017-11-15] MEDS: Dyna-Hex 2% Top Sol 2oz TOPIC SCH (20:53)
--- NOTE | 2017-11-15 21:46 | Nephrology Progress Note ---
Assessment/Plan Assessment 1. Aspiration pneumonia. 2. hypernatremia 3. hypokalemia 4. Shock liver. . Plan plan free water check mg9 replace k monitoring renal function and urine out put avoid NSAID Subjective Subjective extubated open her eyes with verbal stimuli not fallowing command Objective Objective Last 24 Hour Vital Signs Date Time Temp Pulse Resp B/P (MAP) Pulse Ox O2 Delivery O2 Flow Rate FiO2 11/15/17 16:00 98.6 72 19 127/68 (87) 95 98.6 11/15/17 15:11 104 138/74 11/15/17 12:00 97.9 97 21 117/77 (90) 95 97.9 11/15/17 08:00 Nasal Cannula 3.0 Nasal Cannula 3.0 11/15/17 08:00 98.2 99 24 129/67 (87) 98 98.2 11/15/17 07:44 100 Nasal Cannula 2.0 28 11/15/17 07:44 Nasal Cannula 2.0 28 11/15/17 06:05 104 146/77 11/15/17 04:00 99.5 104 24 146/77 (100) 100 99.5 11/15/17 00:00 99.1 85 22 136/74 (94) 94 99.1 Intake and Output 11/14/17 11/15/17 19:00 07:00 Intake Total 845 ml 820 ml Output Total 800 ml Balance 45 ml 820 ml Free Water 280 ml IV Total 800 ml Tube Feeding 45 ml 540 ml Output Urine Total 800 ml # Bowel Movements 2 Laboratory Tests 11/15/17 06:05: White Blood Count 16.7H, Red Blood Count 3.72L, Hemoglobin 11.1L, Hematocrit 34.5L, Mean Corpuscular Volume 93, Mean Corpuscular Hemoglobin 29.9, Mean Corpuscular Hemoglobin Concent 32.2, Red Cell Distribution Width 13.4, Platelet Count 577H, Mean Platelet Volume 5.4L, Neutrophils (%) (Auto) 82.3H, Lymphocytes (%) (Auto) 10.0L, Monocytes (%) (Auto) 6.3, Eosinophils (%) (Auto) 0.3, Basophils (%) (Auto) 1.0, Sodium Level 142, Potassium Level 4.3, Chloride Level 105, Carbon Dioxide Level 29, Anion Gap 8, Blood Urea Nitrogen 23H, Creatinine 0.8, Estimat Glomerular Filtration Rate > 60, Glucose Level 102, Calcium Level 9.1 Height (Feet): 5 Height (Inches): 2.00 Weight (Pounds): 116 Objective HEAD AND NECK: No JVP. No LAD. No thyromegaly. Extraocular movement intact. Pupils are reactive to light and accommodation. LUNGS: Decreased breathing sounds on the right. Apparently, the patient received IJ placement this morning and later on patient developed a pneumothorax on the right side. ABDOMEN: Soft, nontender, and nondistended. EXTREMITIES: No edema. No clubbing. No cyanosis. The patient has Stefani Shabazz MD Nov 15, 2017 21:46
--- NOTE | 2017-11-15 22:38 | Cardiology Progress Note ---
Assessment/Plan Assessment/Plan 1. Sinus tachycardia, resolved, possibly due to cocaine intoxication, continue diltiazem, echo reveals normal left ventricular systolic function with LVEF of approximately 55%. 2. Acute hypoxemic respiratory failure due to aspiration PNA. 3. HTN, well controlled, continue Diltiazem. 4. Mild pulmonary hypertension with right ventricular systolic pressure measured at 42 mmHg. 5. Small right pneumothorax, resolved. 6. Chronic metabolic encephalopathy. Subjective Subjective No cardiac events. NG tube in place. Objective Last 24 Hour Vital Signs Date Time Temp Pulse Resp B/P (MAP) Pulse Ox O2 Delivery O2 Flow Rate FiO2 11/15/17 22:04 107 133/77 11/15/17 20:00 97.5 107 23 133/77 (95) 100 97.5 11/15/17 16:00 98.6 72 19 127/68 (87) 95 98.6 11/15/17 15:11 104 138/74 11/15/17 12:00 97.9 97 21 117/77 (90) 95 97.9 11/15/17 08:00 Nasal Cannula 3.0 Nasal Cannula 3.0 11/15/17 08:00 98.2 99 24 129/67 (87) 98 98.2 11/15/17 07:44 100 Nasal Cannula 2.0 28 11/15/17 07:44 Nasal Cannula 2.0 28 11/15/17 06:05 104 146/77 11/15/17 04:00 99.5 104 24 146/77 (100) 100 99.5 11/15/17 00:00 99.1 85 22 136/74 (94) 94 99.1 Intake and Output 11/14/17 11/15/17 19:00 07:00 Intake Total 845 ml 820 ml Output Total 800 ml Balance 45 ml 820 ml Free Water 280 ml IV Total 800 ml Tube Feeding 45 ml 540 ml Output Urine Total 800 ml # Bowel Movements 2 2D Echo: EF 60-65%, mild LVH, Mild AR, normal LVDD, RVSP 42 mmHg Laboratory Tests Test 11/15/17 06:05 White Blood Count 16.7 K/UL (4.8-10.8) H Red Blood Count 3.72 M/UL (4.20-5.40) L Hemoglobin 11.1 G/DL (12.0-16.0) L Hematocrit 34.5 % (37.0-47.0) L Mean Corpuscular Volume 93 FL (80-99) Mean Corpuscular Hemoglobin 29.9 PG (27.0-31.0) Mean Corpuscular Hemoglobin Concent 32.2 G/DL (32.0-36.0) Red Cell Distribution Width 13.4 % (11.6-14.8) Platelet Count 577 K/UL (150-450) H Mean Platelet Volume 5.4 FL (6.5-10.1) L Neutrophils (%) (Auto) 82.3 % (45.0-75.0) H Lymphocytes (%) (Auto) 10.0 % (20.0-45.0) L Monocytes (%) (Auto) 6.3 % (1.0-10.0) Eosinophils (%) (Auto) 0.3 % (0.0-3.0) Basophils (%) (Auto) 1.0 % (0.0-2.0) Sodium Level 142 MMOL/L (136-145) Potassium Level 4.3 MMOL/L (3.5-5.1) Chloride Level 105 MMOL/L (98-107) Carbon Dioxide Level 29 MMOL/L (21-32) Anion Gap 8 mmol/L (5-15) Blood Urea Nitrogen 23 mg/dL (7-18) H Creatinine 0.8 MG/DL (0.55-1.30) Estimat Glomerular Filtration Rate > 60 mL/min (>60) Glucose Level 102 MG/DL (74-106) Calcium Level 9.1 MG/DL (8.5-10.1) Objective HEENT: Atraumatic and normocephalic. Anicteric. Pupils are equal, round, and reactive to light and accommodation.NG tube in place. NECK: JVP less than 5 cm, no carotid bruit. CARDIOVASCULAR: Normal S1, S2, regular rate rhythm, no murmurs, gallops, or rubs. LUNGS: Diminished breath sounds in both bases. ABDOMEN: Soft, nontender, and nondistended. Positive bowel sounds. EXTREMITIES: No evidence of edema, clubbing, or cyanosis. Geovany Brown MD Nov 15, 2017 22:38
[2017-11-16] VITALS: BP 137/72
[2017-11-16] MEDS: levETIRAcetam 1,000mg/NS100ml 100 ML IVPB SCH ×3 (01:24→17:04)
[2017-11-16 04:00] VITALS: BP 135/77
[2017-11-16] MEDS: dilTIAZem HCl 60mg tab NG SCH (05:44)
[2017-11-16 06:35] LABS: EOSINOPHILS % (AUTO) 0.3 % (0.0-3.0); HEMATOCRIT 35.1 % (37.0-47.0); HEMOGLOBIN 11.3 G/DL (12.0-16.0); LYMPHOCYTES % (AUTO) 12.2 % (20.0-45.0); MEAN CORPUSCULAR VOLUME 92 FL (80-99); MONOCYTES % (AUTO) 5.5 % (1.0-10.0); NEUTROPHILS % (AUTO) 80.9 % (45.0-75.0); PLATELET COUNT 561 K/UL (150-450); RED CELL DISTRIBUTION WIDTH 14.2 % (11.6-14.8); WHITE BLOOD COUNT 17.9 K/UL (4.8-10.8)
[2017-11-16 06:53] LABS: ANION GAP 8 mmol/L (5-15); BLOOD UREA NITROGEN 25 mg/dL (7-18); CALCIUM 9.2 MG/DL (8.5-10.1); CARBON DIOXIDE 28 MMOL/L (21-32); CHLORIDE 106 MMOL/L (98-107); CREATININE 0.9 MG/DL (0.55-1.30); POTASSIUM 4.2 MMOL/L (3.5-5.1); SODIUM 141 MMOL/L (136-145)
--- NOTE | 2017-11-16 07:32 | General Progress Note ---
Assessment/Plan Problem List: (1) Hypoglycemia ICD Codes: E16.2 - Hypoglycemia, unspecified SNOMED: 097424936 (2) SLE (systemic lupus erythematosus) ICD Codes: M32.9 - Systemic lupus erythematosus, unspecified SNOMED: 93773655 (3) Cocaine abuse ICD Codes: F14.10 - Cocaine abuse, uncomplicated SNOMED: 70916994 (4) Elevated transaminase measurement ICD Codes: R74.0 - Nonspecific elevation of levels of transaminase and lactic acid dehydrogenase [LDH] SNOMED: 433222674, 378382449 (5) Diabetes ICD Codes: E11.9 - Type 2 diabetes mellitus without complications SNOMED: 85327016 (6) Pneumothorax on right ICD Codes: J93.9 - Pneumothorax, unspecified SNOMED: 542137027 (7) Seizure ICD Codes: R56.9 - Unspecified convulsions SNOMED: 08083933 Assessment/Plan - continue BG monitoring every 6 hours - hypoglycemia protocol - NISS low dose Subjective ROS Limited/Unobtainable: Yes Allergies: Coded Allergies: ASPIRIN (Verified Allergy, Unknown, 10/30/17) PENICILLINS (Verified Allergy, Unknown, 10/30/17) Subjective events noted neuro status unchanged Objective Last 24 Hour Vital Signs Date Time Temp Pulse Resp B/P (MAP) Pulse Ox O2 Delivery O2 Flow Rate FiO2 11/16/17 05:44 102 135/77 11/16/17 04:00 97.8 102 21 135/77 (96) 100 97.8 11/16/17 00:00 98.0 101 21 137/72 (93) 100 98.0 11/15/17 22:04 107 133/77 11/15/17 21:00 Nasal Cannula 3.0 Nasal Cannula 3.0 11/15/17 20:00 97.5 107 23 133/77 (95) 100 97.5 11/15/17 16:00 98.6 72 19 127/68 (87) 95 98.6 11/15/17 15:11 104 138/74 11/15/17 12:00 97.9 97 21 117/77 (90) 95 97.9 11/15/17 08:00 Nasal Cannula 3.0 Nasal Cannula 3.0 11/15/17 08:00 98.2 99 24 129/67 (87) 98 98.2 11/15/17 07:44 100 Nasal Cannula 2.0 28 11/15/17 07:44 Nasal Cannula 2.0 28 Intake and Output 11/15/17 11/16/17 19:00 07:00 Intake Total 555 ml Output Total 2100 ml Balance 555 ml -2100 ml Free Water 60 ml Tube Feeding 495 ml Output Urine Total 2100 ml # Bowel Movements 1 Laboratory Tests 11/16/17 06:25: White Blood Count 17.9H, Red Blood Count 3.80L, Hemoglobin 11.3L, Hematocrit 35.1L, Mean Corpuscular Volume 92, Mean Corpuscular Hemoglobin 29.8, Mean Corpuscular Hemoglobin Concent 32.3, Red Cell Distribution Width 14.2, Platelet Count 561H, Mean Platelet Volume 5.2L, Neutrophils (%) (Auto) 80.9H, Lymphocytes (%) (Auto) 12.2L, Monocytes (%) (Auto) 5.5, Eosinophils (%) (Auto) 0.3, Basophils (%) (Auto) 1.0, Sodium Level 141, Potassium Level 4.2, Chloride Level 106, Carbon Dioxide Level 28, Anion Gap 8, Blood Urea Nitrogen 25H, Creatinine 0.9, Estimat Glomerular Filtration Rate > 60, Glucose Level 115H, Calcium Level 9.2 Height (Feet): 5 Height (Inches): 2.00 Weight (Pounds): 117 General Appearance: no apparent distress Neck: normal alignment Cardiovascular: normal rate Respiratory/Chest: lungs clear Objective Current Medications Medications (Trade) Dose Ordered Sig/Yung Route PRN Reason Start Time Stop Time Status Last Admin Dose Admin Acetaminophen (Tylenol) 650 mg Q6H PRN NG Mild Pain/Temp > 100.5 11/13/17 05:36 12/03/17 05:35 Chlorhexidine Gluconate (Sunita-Hex 2%) 1 applic DAILY@1999 TOPIC 11/13/17 20:00 11/29/17 19:59 11/15/17 20:53 Clonidine HCl (Catapres Tab) 0.1 mg Q4H PRN ORAL for SBP >160 11/13/17 09:00 12/01/17 12:59 Diltiazem HCl (Cardizem) 90 mg EVERY 8 HOURS NG 11/14/17 06:00 12/14/17 05:59 11/16/17 05:44 Heparin Sodium (Porcine) (Heparin 5000 units/ml) 5,000 units EVERY 12 HOURS SUBQ 11/13/17 09:00 11/29/17 08:59 11/15/17 20:52 Levetiracetam 100 ml @ 400 mls/hr Q8H IVPB 11/13/17 09:00 11/29/17 16:59 11/16/17 01:24 Morphine Sulfate (Morphine Sulfate) 4 mg Q1H PRN IVP for discomfort or RR>20 11/13/17 06:00 11/19/17 15:54 Trimethoprim/ Sulfamethoxazole (Bactrim-DS) 2 tab Q12HR ORAL 11/15/17 21:00 11/21/17 08:59 11/15/17 20:53 Item Value Date Time Bedside Blood Glucose 103 mg/dl 11/16/17 0600 Bedside Blood Glucose 112 mg/dl 11/16/17 0000 Bedside Blood Glucose 110 mg/dl 11/15/17 1800 Bedside Blood Glucose 105 mg/dl 11/15/17 1200 Bedside Blood Glucose 101 mg/dl 11/15/17 0600 Salvador Garcia MD Nov 16, 2017 07:32
[2017-11-16 08:00] VITALS: BP 108/64
--- NOTE | 2017-11-16 08:35 | Nephrology Progress Note ---
Assessment/Plan Assessment 1. Aspiration pneumonia. 2. hypernatremia 3. hypokalemia 4. Shock liver. . Plan plan free water check mg9 replace k monitoring renal function and urine out put avoid NSAID Subjective Subjective not fallowing command Objective Objective Last 24 Hour Vital Signs Date Time Temp Pulse Resp B/P (MAP) Pulse Ox O2 Delivery O2 Flow Rate FiO2 11/16/17 05:44 102 135/77 11/16/17 04:00 97.8 102 21 135/77 (96) 100 97.8 11/16/17 00:00 98.0 101 21 137/72 (93) 100 98.0 11/15/17 22:04 107 133/77 11/15/17 21:00 Nasal Cannula 3.0 Nasal Cannula 3.0 11/15/17 20:00 97.5 107 23 133/77 (95) 100 97.5 11/15/17 16:00 98.6 72 19 127/68 (87) 95 98.6 11/15/17 15:11 104 138/74 11/15/17 12:00 97.9 97 21 117/77 (90) 95 97.9 Intake and Output 11/15/17 11/16/17 19:00 07:00 Intake Total 555 ml Output Total 2100 ml Balance 555 ml -2100 ml Free Water 60 ml Tube Feeding 495 ml Output Urine Total 2100 ml # Bowel Movements 1 Laboratory Tests 11/16/17 06:25: White Blood Count 17.9H, Red Blood Count 3.80L, Hemoglobin 11.3L, Hematocrit 35.1L, Mean Corpuscular Volume 92, Mean Corpuscular Hemoglobin 29.8, Mean Corpuscular Hemoglobin Concent 32.3, Red Cell Distribution Width 14.2, Platelet Count 561H, Mean Platelet Volume 5.2L, Neutrophils (%) (Auto) 80.9H, Lymphocytes (%) (Auto) 12.2L, Monocytes (%) (Auto) 5.5, Eosinophils (%) (Auto) 0.3, Basophils (%) (Auto) 1.0, Sodium Level 141, Potassium Level 4.2, Chloride Level 106, Carbon Dioxide Level 28, Anion Gap 8, Blood Urea Nitrogen 25H, Creatinine 0.9, Estimat Glomerular Filtration Rate > 60, Glucose Level 115H, Calcium Level 9.2 Height (Feet): 5 Height (Inches): 2.00 Weight (Pounds): 117 Objective HEAD AND NECK: No JVP. No LAD. No thyromegaly. Extraocular movement intact. Pupils are reactive to light and accommodation. LUNGS: Decreased breathing sounds on the right. Apparently, the patient received IJ placement this morning and later on patient developed a pneumothorax on the right side. ABDOMEN: Soft, nontender, and nondistended. EXTREMITIES: No edema. No clubbing. No cyanosis. The patient has Stefani Shabazz MD Nov 16, 2017 08:35
[2017-11-16] MEDS: Bactrim-DS 1 tab ORAL SCH (08:42)
[2017-11-16] MEDS: Heparin 5000 units/ml inj SUBQ SCH (08:55)
--- NOTE | 2017-11-16 09:20 | Infectious Diseases Prog Note ---
Assessment/Plan Assessment/Plan 57 yo female who presented to the ED on 10/30/17 after pulmonary arrest. Sepsis - Probable Asp PNA On Abx 10/30 Sputum Cultures - Predominantly NF - +1 Steno Will hold off Tx of Steno as patient improving 10/31 Urine Cx - NGTD Leukocytosis - WBCs 16 after seizure No Fevers Seizures - Had Seizure on route to ED 10/30/17 and in the ICU as well Drug abuse - Pos for cocaine Arthritis Chronic pain. P: - Continue Bactrim DS 2 Tab BID #04/27 for Stenotrophomonas in the lungs - S/P Levofloxacin # - 11/04 Ceftriaxone #3 - D/C Flagyl #10 for asp PNA - 10/31 Vancomycin # - 10/31 Aztreonam - 10/30 SP Ceftriaxone - Monitor CBC and Temps - CXR - Repeat sputum cultures - Poor prognosis We will continue to follow the patient during this hospitalization. Subjective Allergies: Coded Allergies: ASPIRIN (Verified Allergy, Unknown, 10/30/17) PENICILLINS (Verified Allergy, Unknown, 10/30/17) Subjective On 3L NC, Laying in bed No Clinical change in mental status Objective Vital Signs Last 24 Hour Vital Signs Date Time Temp Pulse Resp B/P (MAP) Pulse Ox O2 Delivery O2 Flow Rate FiO2 11/16/17 05:44 102 135/77 11/16/17 04:00 97.8 102 21 135/77 (96) 100 97.8 11/16/17 00:00 98.0 101 21 137/72 (93) 100 98.0 11/15/17 22:04 107 133/77 11/15/17 21:00 Nasal Cannula 3.0 Nasal Cannula 3.0 11/15/17 20:00 97.5 107 23 133/77 (95) 100 97.5 11/15/17 16:00 98.6 72 19 127/68 (87) 95 98.6 11/15/17 15:11 104 138/74 11/15/17 12:00 97.9 97 21 117/77 (90) 95 97.9 Height (Feet): 5 Height (Inches): 2.00 Weight (Pounds): 117 Objective Gen: NAD, No clinical changes HEENT: NCAT, MMM, eyes closed LUNGS: Course B/L, No Wheezing, Right subclavian line C/D/I no E/P CARDS: RRR, S1, S2 ABD: Soft, NT, ND, + BS NEURO: Not responsive Laboratory Tests Test 11/16/17 06:25 White Blood Count 17.9 K/UL (4.8-10.8) H Red Blood Count 3.80 M/UL (4.20-5.40) L Hemoglobin 11.3 G/DL (12.0-16.0) L Hematocrit 35.1 % (37.0-47.0) L Mean Corpuscular Volume 92 FL (80-99) Mean Corpuscular Hemoglobin 29.8 PG (27.0-31.0) Mean Corpuscular Hemoglobin Concent 32.3 G/DL (32.0-36.0) Red Cell Distribution Width 14.2 % (11.6-14.8) Platelet Count 561 K/UL (150-450) H Mean Platelet Volume 5.2 FL (6.5-10.1) L Neutrophils (%) (Auto) 80.9 % (45.0-75.0) H Lymphocytes (%) (Auto) 12.2 % (20.0-45.0) L Monocytes (%) (Auto) 5.5 % (1.0-10.0) Eosinophils (%) (Auto) 0.3 % (0.0-3.0) Basophils (%) (Auto) 1.0 % (0.0-2.0) Sodium Level 141 MMOL/L (136-145) Potassium Level 4.2 MMOL/L (3.5-5.1) Chloride Level 106 MMOL/L (98-107) Carbon Dioxide Level 28 MMOL/L (21-32) Anion Gap 8 mmol/L (5-15) Blood Urea Nitrogen 25 mg/dL (7-18) H Creatinine 0.9 MG/DL (0.55-1.30) Estimat Glomerular Filtration Rate > 60 mL/min (>60) Glucose Level 115 MG/DL (74-106) H Calcium Level 9.2 MG/DL (8.5-10.1) Current Medications Medications (Trade) Dose Ordered Sig/Yung Route PRN Reason Start Time Stop Time Status Last Admin Dose Admin Acetaminophen (Tylenol) 650 mg Q6H PRN NG Mild Pain/Temp > 100.5 11/13/17 05:36 12/03/17 05:35 Chlorhexidine Gluconate (Sunita-Hex 2%) 1 applic DAILY@2000 TOPIC 11/13/17 20:00 11/29/17 19:59 11/15/17 20:53 Clonidine HCl (Catapres Tab) 0.1 mg Q4H PRN ORAL for SBP >160 11/13/17 09:00 12/01/17 12:59 Diltiazem HCl (Cardizem) 90 mg EVERY 8 HOURS NG 11/14/17 06:00 12/14/17 05:59 11/16/17 05:44 Heparin Sodium (Porcine) (Heparin 5000 units/ml) 5,000 units EVERY 12 HOURS SUBQ 11/13/17 09:00 11/29/17 08:59 11/16/17 08:55 Levetiracetam 100 ml @ 400 mls/hr Q8H IVPB 11/13/17 09:00 11/29/17 16:59 11/16/17 08:42 Morphine Sulfate (Morphine Sulfate) 4 mg Q1H PRN IVP for discomfort or RR>20 11/13/17 06:00 11/19/17 15:54 Trimethoprim/ Sulfamethoxazole (Bactrim-DS) 2 tab Q12HR ORAL 11/15/17 21:00 11/21/17 08:59 11/16/17 08:42 Gutierrez Sifuentes MD Nov 16, 2017 09:19
[2017-11-16 12:00] VITALS: BP 103/61
--- NOTE | 2017-11-16 12:13 | GI Progress Note ---
Assessment/Plan Problems: (1) Diabetes ICD Codes: E11.9 - Type 2 diabetes mellitus without complications SNOMED: 49917161 (2) Cocaine abuse ICD Codes: F14.10 - Cocaine abuse, uncomplicated SNOMED: 27364357 (3) Transaminitis ICD Codes: R74.0 - Nonspecific elevation of levels of transaminase and lactic acid dehydrogenase [LDH] SNOMED: 070275822, 409213529 (4) Anemia ICD Codes: D64.9 - Anemia, unspecified SNOMED: 550361707 Status: stable Status Narrative Discussed with Dr. Sauceda. Assessment/Plan NGTFs fu labs supportive care peg if needed poor prognosis The patient was seen and examined at bedside and all new and available data was reviewed in the patients chart. I agree with the above findings, impression and plan. (Patient seen earlier today. Signature stamp does not reflect patient encounter time.). - Renaldo Sauceda MD Subjective Subjective limited Objective Last 24 Hour Vital Signs Date Time Temp Pulse Resp B/P (MAP) Pulse Ox O2 Delivery O2 Flow Rate FiO2 11/16/17 09:00 Nasal Cannula 3.0 Nasal Cannula 3.0 11/16/17 08:00 97.7 93 22 108/64 (79) 100 97.7 11/16/17 05:44 102 135/77 11/16/17 04:00 97.8 102 21 135/77 (96) 100 97.8 11/16/17 00:00 98.0 101 21 137/72 (93) 100 98.0 11/15/17 22:04 107 133/77 11/15/17 21:00 Nasal Cannula 3.0 Nasal Cannula 3.0 11/15/17 20:00 97.5 107 23 133/77 (95) 100 97.5 11/15/17 16:00 98.6 72 19 127/68 (87) 95 98.6 11/15/17 15:11 104 138/74 Intake and Output 11/15/17 11/16/17 19:00 07:00 Intake Total 555 ml Output Total 2100 ml Balance 555 ml -2100 ml Free Water 60 ml Tube Feeding 495 ml Output Urine Total 2100 ml # Bowel Movements 1 Laboratory Tests Test 11/16/17 06:25 White Blood Count 17.9 K/UL (4.8-10.8) H Red Blood Count 3.80 M/UL (4.20-5.40) L Hemoglobin 11.3 G/DL (12.0-16.0) L Hematocrit 35.1 % (37.0-47.0) L Mean Corpuscular Volume 92 FL (80-99) Mean Corpuscular Hemoglobin 29.8 PG (27.0-31.0) Mean Corpuscular Hemoglobin Concent 32.3 G/DL (32.0-36.0) Red Cell Distribution Width 14.2 % (11.6-14.8) Platelet Count 561 K/UL (150-450) H Mean Platelet Volume 5.2 FL (6.5-10.1) L Neutrophils (%) (Auto) 80.9 % (45.0-75.0) H Lymphocytes (%) (Auto) 12.2 % (20.0-45.0) L Monocytes (%) (Auto) 5.5 % (1.0-10.0) Eosinophils (%) (Auto) 0.3 % (0.0-3.0) Basophils (%) (Auto) 1.0 % (0.0-2.0) Sodium Level 141 MMOL/L (136-145) Potassium Level 4.2 MMOL/L (3.5-5.1) Chloride Level 106 MMOL/L (98-107) Carbon Dioxide Level 28 MMOL/L (21-32) Anion Gap 8 mmol/L (5-15) Blood Urea Nitrogen 25 mg/dL (7-18) H Creatinine 0.9 MG/DL (0.55-1.30) Estimat Glomerular Filtration Rate > 60 mL/min (>60) Glucose Level 115 MG/DL (74-106) H Calcium Level 9.2 MG/DL (8.5-10.1) Height (Feet): 5 Height (Inches): 2.00 Weight (Pounds): 117 General Appearance: no apparent distress, cachetic Cardiovascular: normal rate Respiratory/Chest: normal breath sounds, no respiratory distress Abdominal Exam: normal bowel sounds, non tender, soft, other - NGT Extremities: non-tender Risa Davenport [employer] Nov 16, 2017 12:13
--- NOTE | 2017-11-16 13:56 | General Progress Note ---
Assessment/Plan Problem List: (1) Renal insufficiency ICD Codes: N28.9 - Disorder of kidney and ureter, unspecified SNOMED: 049168808, 666599954 (2) UTI (urinary tract infection) ICD Codes: N39.0 - Urinary tract infection, site not specified SNOMED: 50346326 (3) Seizure ICD Codes: R56.9 - Unspecified convulsions SNOMED: 05106187 (4) HTN (hypertension) ICD Codes: I10 - Essential (primary) hypertension SNOMED: 19555184 (5) Diabetes ICD Codes: E11.9 - Type 2 diabetes mellitus without complications SNOMED: 09682457 Status: unchanged Assessment/Plan vent abx detox neph f/u wean vent cbc bmp am hospice eval if family wishes Subjective Constitutional: Reports: weakness Allergies: Coded Allergies: ASPIRIN (Verified Allergy, Unknown, 10/30/17) PENICILLINS (Verified Allergy, Unknown, 10/30/17) All Systems: reviewed and negative except above Subjective o2 nc ng lethargic Objective Last 24 Hour Vital Signs Date Time Temp Pulse Resp B/P (MAP) Pulse Ox O2 Delivery O2 Flow Rate FiO2 11/16/17 12:00 97.7 93 22 103/61 (75) 100 97.7 11/16/17 09:00 Nasal Cannula 3.0 Nasal Cannula 3.0 11/16/17 08:00 97.7 93 22 108/64 (79) 100 97.7 11/16/17 05:44 102 135/77 11/16/17 04:00 97.8 102 21 135/77 (96) 100 97.8 11/16/17 00:00 98.0 101 21 137/72 (93) 100 98.0 11/15/17 22:04 107 133/77 11/15/17 21:00 Nasal Cannula 3.0 Nasal Cannula 3.0 11/15/17 20:00 97.5 107 23 133/77 (95) 100 97.5 11/15/17 16:00 98.6 72 19 127/68 (87) 95 98.6 11/15/17 15:11 104 138/74 Intake and Output 11/15/17 11/16/17 19:00 07:00 Intake Total 555 ml Output Total 2100 ml Balance 555 ml -2100 ml Free Water 60 ml Tube Feeding 495 ml Output Urine Total 2100 ml # Bowel Movements 1 Laboratory Tests 11/16/17 06:25: White Blood Count 17.9H, Red Blood Count 3.80L, Hemoglobin 11.3L, Hematocrit 35.1L, Mean Corpuscular Volume 92, Mean Corpuscular Hemoglobin 29.8, Mean Corpuscular Hemoglobin Concent 32.3, Red Cell Distribution Width 14.2, Platelet Count 561H, Mean Platelet Volume 5.2L, Neutrophils (%) (Auto) 80.9H, Lymphocytes (%) (Auto) 12.2L, Monocytes (%) (Auto) 5.5, Eosinophils (%) (Auto) 0.3, Basophils (%) (Auto) 1.0, Sodium Level 141, Potassium Level 4.2, Chloride Level 106, Carbon Dioxide Level 28, Anion Gap 8, Blood Urea Nitrogen 25H, Creatinine 0.9, Estimat Glomerular Filtration Rate > 60, Glucose Level 115H, Calcium Level 9.2 Height (Feet): 5 Height (Inches): 2.00 Weight (Pounds): 117 General Appearance: lethargic EENT: normal ENT inspection Neck: normal alignment Cardiovascular: normal peripheral pulses, normal rate, regular rhythm Respiratory/Chest: chest wall non-tender, decreased breath sounds Abdomen: normal bowel sounds, non tender, soft Extremities: normal inspection Edema: no edema noted Arm (L), no edema noted Arm (R), no edema noted Leg (L), no edema noted Leg (R), no edema noted Pedal (L), no edema noted Pedal (R), no edema noted Generalized Neurologic: motor weakness Skin: normal pigmentation, warm/dry Josias Skinner DO Nov 16, 2017 13:56
--- NOTE | 2017-11-16 15:10 | Diagnostic Imaging Report ---
Indication: Shortness of breath Technique: One view of the chest Comparison: 11/09/2017 Findings: Better inspiration currently. Lungs and pleural spaces are currently clear; previously demonstrated right lung opacities have resolved. Left shoulder prosthesis, right chest central venous catheter, nasogastric tube remain. Previously demonstrated endotracheal tube has been removed. Impression: Interim extubation Previously demonstrated right lung opacities have resolved. Other stable findings as described
--- NOTE | 2017-11-16 15:55 | Neurology Progress Note ---
Interim History Interim History Interim History Ms. Robertson is unresponsive. She continues to exhibit spontaneous eye opening and closing. She is still exhibiting decerebrate posturing. She has had no seizures or seizure like phenomena. There has been no improvement in her neurologic state. She is having some spontaneous awake sleep cycles. Objective Physical Exam Last Vital Signs Date Time Temp Pulse Resp B/P (MAP) Pulse Ox O2 Delivery O2 Flow Rate FiO2 11/16/17 12:00 97.7 93 22 103/61 (75) 100 97.7 11/16/17 09:00 Nasal Cannula 3.0 Nasal Cannula 3.0 11/15/17 07:44 28 Laboratory Tests Test 11/16/17 06:25 White Blood Count 17.9 K/UL (4.8-10.8) H Red Blood Count 3.80 M/UL (4.20-5.40) L Hemoglobin 11.3 G/DL (12.0-16.0) L Hematocrit 35.1 % (37.0-47.0) L Mean Corpuscular Volume 92 FL (80-99) Mean Corpuscular Hemoglobin 29.8 PG (27.0-31.0) Mean Corpuscular Hemoglobin Concent 32.3 G/DL (32.0-36.0) Red Cell Distribution Width 14.2 % (11.6-14.8) Platelet Count 561 K/UL (150-450) H Mean Platelet Volume 5.2 FL (6.5-10.1) L Neutrophils (%) (Auto) 80.9 % (45.0-75.0) H Lymphocytes (%) (Auto) 12.2 % (20.0-45.0) L Monocytes (%) (Auto) 5.5 % (1.0-10.0) Eosinophils (%) (Auto) 0.3 % (0.0-3.0) Basophils (%) (Auto) 1.0 % (0.0-2.0) Sodium Level 141 MMOL/L (136-145) Potassium Level 4.2 MMOL/L (3.5-5.1) Chloride Level 106 MMOL/L (98-107) Carbon Dioxide Level 28 MMOL/L (21-32) Anion Gap 8 mmol/L (5-15) Blood Urea Nitrogen 25 mg/dL (7-18) H Creatinine 0.9 MG/DL (0.55-1.30) Estimat Glomerular Filtration Rate > 60 mL/min (>60) Glucose Level 115 MG/DL (74-106) H Calcium Level 9.2 MG/DL (8.5-10.1) Neurologic Exam Objective PHYSICAL EXAMINATION: GENERAL: She is a well-developed, cachectic, lean, black lady, lying in bed, in no acute distress. HEAD: Normocephalic and atraumatic. EENT: Examination benign. NECK: No neck rigidity was observed. NEUROLOGIC EXAMINATION: MENTAL STATUS EXAMINATION: She was unresponsive even to deep painful stimuli. She was decerebrating spontaneously. Further mental status testing was impossible. SPEECH: Could not be tested. LANGUAGE: Could not be tested. CRANIAL NERVE EXAMINATION: II: She did not blink to threat. III, IV & : The external ocular movements were present on oculocephalic maneuvers. The pupils were 3 mm in diameter and reactive sluggishly to light. V & VII: The corneal reflexes were present, but significantly diminished. VIII: She did not respond to sounds and had no nystagmus. IX & X: The gag reflex was present but delayed on manipulating the endotracheal tube. XI: The sternocleidomastoids and trapezii could not be tested. XII: Could not be tested. MOTOR SYSTEM: The tone was increased in all four extremities with severe spasticity. Examination of muscle mass revealed generalized muscle wasting. Examination of power was impossible to perform because even on applying deep painful stimuli, no purposeful movements were seen. SENSORY EXAMINATION: She did not respond even to deep pain other than reflex withdrawal. REFLEXES: 1+ and bilaterally symmetrical at the biceps, triceps, brachioradialis , and knees. 0 at both ankles. The plantar responses were extensor bilaterally. COORDINATION, STANCE & GAIT: Could not be tested. Impression/Recommendations Diagnostic Impression 1. Ms. Polly Robertson is a 57-year-old, right-handed, black lady, who does have a past history of polysubstance abuse with her recent drug of choice being cocaine, a seizure disorder, and chronic pain, who was found down in her bathroom at home with vomitus in her mouth. She then was noted to stop breathing and this progressed to cardiac failure. The paramedics were called in and she had to have advanced cardiac life support before she could be resuscitated. She was then transported to the [facility] emergency room and on the way here she was noted to have a generalized seizure. Since then, she has had multiple seizures, however, at this point in time, they are well controlled on the present regimen. 2. She is unresponsive. She continues to exhibit spontaneous eye opening and closing. She is still exhibiting decerebrate posturing. She has had no seizures or seizure like phenomena. There has been no improvement in her neurologic state. She is exhibiting some awake sleep cycles. 3. On neurological examination, at this time, she is unresponsive even to deep pain exhibiting only reflex withdrawal. She exhibits spontaneous decerebration. She does not demonstrate any focal or lateralizing findings. 4. The CT scan of the brain without contrast is benign for acute pathology. 5. Her latest laboratory data on my initial evaluation revealed that her WBC count was elevated to 17,600 with predominantly 79% being neutrophils and 15% being lymphocytes and monocytes. Her arterial blood gas revealed pCO2 low at 21.2, pO2 at 154, and pH of 7.49. Her chemistry panel revealed a creatinine elevated to 1.7. Her AST was elevated at 255, ALT elevated at 251, and alkaline phosphatase elevated at 142. Her albumin was low at 2.9. Her Urinalysis revealed 1+ leukocyte esterase, 20- 30 red blood cells, and 5-10 white blood cells per high-power field. The urine toxicology screen was positive for cocaine. 6. Her EEG done on 10/31/17 revealed a severe encephalopathy and bilateral frontal epileptogenic foci with inter-ictal discharges at times with a large field. 7. The patient's history, neurological examination, laboratory data and imaging studies are most compatible with seizures due to a hypoxic/ischemic cerebral insult and/or cocaine intoxication. She is seizure free on Keppra. 8. 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 9. The prognosis for recovery of cerebral function is dismal. Recommendations 1. Continue present management. 2. Continue Keppra 1 G intravenously every 8 hours. 3. Keep comfortable. Denisse Lester M.D., M.S.P.DENISSE ERAZO Nov 16, 2017 15:55
[2017-11-16 16:55] VITALS: BP 135/76
[2017-11-16 20:00] VITALS: BP 127/80
[2017-11-16] MEDS: Dyna-Hex 2% Top Sol 2oz TOPIC SCH (20:09)
[2017-11-17] VITALS: BP 116/73
[2017-11-17] MEDS: levETIRAcetam 1,000mg/NS100ml 100 ML IVPB SCH ×2 (00:30→09:03)
[2017-11-17 04:00] VITALS: BP 139/80
[2017-11-17 06:03] LABS: BASOPHILS % (AUTO) 1.4 % (0.0-2.0); EOSINOPHILS % (AUTO) 0.9 % (0.0-3.0); HEMOGLOBIN 11.1 G/DL (12.0-16.0); LYMPHOCYTES % (AUTO) 16.1 % (20.0-45.0); MEAN CORPUSCULAR VOLUME 93 FL (80-99); NEUTROPHILS % (AUTO) 73.6 % (45.0-75.0); PLATELET COUNT 530 K/UL (150-450); RED BLOOD COUNT 3.79 M/UL (4.20-5.40); RED CELL DISTRIBUTION WIDTH 13.9 % (11.6-14.8); WHITE BLOOD COUNT 12.3 K/UL (4.8-10.8)
[2017-11-17 07:00] LABS: ANION GAP 8 mmol/L (5-15); BLOOD UREA NITROGEN 28 mg/dL (7-18); CALCIUM 8.8 MG/DL (8.5-10.1); CARBON DIOXIDE 26 MMOL/L (21-32); CHLORIDE 107 MMOL/L (98-107); CREATININE 0.8 MG/DL (0.55-1.30); POTASSIUM 4.1 MMOL/L (3.5-5.1); SODIUM 141 MMOL/L (136-145)
[2017-11-17 08:00] VITALS: BP 141/82
--- NOTE | 2017-11-17 10:04 | GI Progress Note ---
Assessment/Plan Problems: (1) Diabetes ICD Codes: E11.9 - Type 2 diabetes mellitus without complications SNOMED: 31134892 (2) Cocaine abuse ICD Codes: F14.10 - Cocaine abuse, uncomplicated SNOMED: 98444964 (3) Transaminitis ICD Codes: R74.0 - Nonspecific elevation of levels of transaminase and lactic acid dehydrogenase [LDH] SNOMED: 591980194, 821827445 (4) Anemia ICD Codes: D64.9 - Anemia, unspecified SNOMED: 494526968 Status: not improved, unchanged Status Narrative Discussed with Dr. Sauceda. Assessment/Plan NGTFs fu labs supportive care peg if needed poor prognosis The patient was seen and examined at bedside and all new and available data was reviewed in the patients chart. I agree with the above findings, impression and plan. (Patient seen earlier today. Signature stamp does not reflect patient encounter time.). - Renaldo Sauceda MD Subjective Subjective limited Objective Last 24 Hour Vital Signs Date Time Temp Pulse Resp B/P (MAP) Pulse Ox O2 Delivery O2 Flow Rate FiO2 11/17/17 09:00 Nasal Cannula 2.0 Nasal Cannula 2.0 11/17/17 08:00 98.3 108 18 141/82 (101) 100 98.3 11/17/17 04:00 98.9 107 20 139/80 (99) 100 98.9 11/17/17 00:00 97.9 98 20 116/73 (87) 100 97.9 11/16/17 20:56 Nasal Cannula 2.0 Nasal Cannula 2.0 11/16/17 20:00 98.9 109 20 127/80 (96) 100 98.9 11/16/17 20:00 100 Nasal Cannula 2.0 28 11/16/17 19:30 Nasal Cannula 2.0 28 11/16/17 16:55 98.2 93 20 135/76 (95) 97 98.2 11/16/17 12:00 97.7 93 22 103/61 (75) 100 97.7 Intake and Output 11/16/17 11/17/17 19:00 07:00 Intake Total 1205 ml 790 ml Output Total 207 ml 828 ml Balance 998 ml -38 ml Free Water 150 ml IV Total 800 ml 100 ml Tube Feeding 405 ml 540 ml Output Urine Total 207 ml 825 ml Stool Total 3 ml Laboratory Tests Test 11/17/17 05:25 White Blood Count 12.3 K/UL (4.8-10.8) H Red Blood Count 3.79 M/UL (4.20-5.40) L Hemoglobin 11.1 G/DL (12.0-16.0) L Hematocrit 35.0 % (37.0-47.0) L Mean Corpuscular Volume 93 FL (80-99) Mean Corpuscular Hemoglobin 29.4 PG (27.0-31.0) Mean Corpuscular Hemoglobin Concent 31.8 G/DL (32.0-36.0) L Red Cell Distribution Width 13.9 % (11.6-14.8) Platelet Count 530 K/UL (150-450) H Mean Platelet Volume 5.6 FL (6.5-10.1) L Neutrophils (%) (Auto) 73.6 % (45.0-75.0) Lymphocytes (%) (Auto) 16.1 % (20.0-45.0) L Monocytes (%) (Auto) 8.0 % (1.0-10.0) Eosinophils (%) (Auto) 0.9 % (0.0-3.0) Basophils (%) (Auto) 1.4 % (0.0-2.0) Sodium Level 141 MMOL/L (136-145) Potassium Level 4.1 MMOL/L (3.5-5.1) Chloride Level 107 MMOL/L (98-107) Carbon Dioxide Level 26 MMOL/L (21-32) Anion Gap 8 mmol/L (5-15) Blood Urea Nitrogen 28 mg/dL (7-18) H Creatinine 0.8 MG/DL (0.55-1.30) Estimat Glomerular Filtration Rate > 60 mL/min (>60) Glucose Level 95 MG/DL (74-106) Calcium Level 8.8 MG/DL (8.5-10.1) Height (Feet): 5 Height (Inches): 2.00 Weight (Pounds): 110 General Appearance: cachetic Cardiovascular: normal rate Respiratory/Chest: no respiratory distress Abdominal Exam: soft Risa Davenport COUNTER CHECKER Nov 17, 2017 10:04
--- NOTE | 2017-11-17 10:39 | Infectious Diseases Prog Note ---
Assessment/Plan Assessment/Plan 57 yo female who presented to the ED on 10/30/17 after pulmonary arrest. Sepsis - Probable Asp PNA On Abx 10/30 Sputum Cultures - Predominantly NF - +1 Steno Will hold off Tx of Steno as patient improving 10/31 Urine Cx - NGTD Leukocytosis - WBCs 16 after seizure No Fevers Seizures - Had Seizure on route to ED 10/30/17 and in the ICU as well Drug abuse - Pos for cocaine Arthritis Chronic pain. P: Patient being med comfortable and artificial feeding stopped per family request. -11/16 - SP Bactrim DS - S/P Levofloxacin # - 11/04 Ceftriaxone #3 - D/C Flagyl #10 for asp PNA - 10/31 Vancomycin #1 - 10/31 Aztreonam - 10/30 SP Ceftriaxone - Monitor CBC and Temps - CXR - Poor prognosis We will continue to follow the patient during this hospitalization. Subjective Allergies: Coded Allergies: ASPIRIN (Verified Allergy, Unknown, 10/30/17) PENICILLINS (Verified Allergy, Unknown, 10/30/17) Subjective On 2L NC, Laying in bed No Clinical change in mental status Objective Vital Signs Last 24 Hour Vital Signs Date Time Temp Pulse Resp B/P (MAP) Pulse Ox O2 Delivery O2 Flow Rate FiO2 11/17/17 09:00 Nasal Cannula 2.0 Nasal Cannula 2.0 11/17/17 08:00 98.3 108 18 141/82 (101) 100 98.3 11/17/17 04:00 98.9 107 20 139/80 (99) 100 98.9 11/17/17 00:00 97.9 98 20 116/73 (87) 100 97.9 11/16/17 20:56 Nasal Cannula 2.0 Nasal Cannula 2.0 11/16/17 20:00 98.9 109 20 127/80 (96) 100 98.9 11/16/17 20:00 100 Nasal Cannula 2.0 28 11/16/17 19:30 Nasal Cannula 2.0 28 11/16/17 16:55 98.2 93 20 135/76 (95) 97 98.2 11/16/17 12:00 97.7 93 22 103/61 (75) 100 97.7 Height (Feet): 5 Height (Inches): 2.00 Weight (Pounds): 110 Objective Gen: NAD, No clinical changes HEENT: NCAT, MMM, eyes closed LUNGS: Course B/L, No W CARDS: RRR, S1, S2 ABD: Soft, NT, ND, + BS NEURO: Not responsive Laboratory Tests Test 11/17/17 05:25 White Blood Count 12.3 K/UL (4.8-10.8) H Red Blood Count 3.79 M/UL (4.20-5.40) L Hemoglobin 11.1 G/DL (12.0-16.0) L Hematocrit 35.0 % (37.0-47.0) L Mean Corpuscular Volume 93 FL (80-99) Mean Corpuscular Hemoglobin 29.4 PG (27.0-31.0) Mean Corpuscular Hemoglobin Concent 31.8 G/DL (32.0-36.0) L Red Cell Distribution Width 13.9 % (11.6-14.8) Platelet Count 530 K/UL (150-450) H Mean Platelet Volume 5.6 FL (6.5-10.1) L Neutrophils (%) (Auto) 73.6 % (45.0-75.0) Lymphocytes (%) (Auto) 16.1 % (20.0-45.0) L Monocytes (%) (Auto) 8.0 % (1.0-10.0) Eosinophils (%) (Auto) 0.9 % (0.0-3.0) Basophils (%) (Auto) 1.4 % (0.0-2.0) Sodium Level 141 MMOL/L (136-145) Potassium Level 4.1 MMOL/L (3.5-5.1) Chloride Level 107 MMOL/L (98-107) Carbon Dioxide Level 26 MMOL/L (21-32) Anion Gap 8 mmol/L (5-15) Blood Urea Nitrogen 28 mg/dL (7-18) H Creatinine 0.8 MG/DL (0.55-1.30) Estimat Glomerular Filtration Rate > 60 mL/min (>60) Glucose Level 95 MG/DL (74-106) Calcium Level 8.8 MG/DL (8.5-10.1) Current Medications Medications (Trade) Dose Ordered Sig/Yung Route PRN Reason Start Time Stop Time Status Last Admin Dose Admin Acetaminophen (Tylenol) 650 mg Q6H PRN NG Mild Pain/Temp > 100.5 11/13/17 05:36 12/03/17 05:35 Chlorhexidine Gluconate (Sunita-Hex 2%) 1 applic DAILY@2000 TOPIC 11/13/17 20:00 11/29/17 19:59 11/16/17 20:09 Clonidine HCl (Catapres Tab) 0.1 mg Q4H PRN ORAL for SBP >160 11/13/17 09:00 12/01/17 12:59 Levetiracetam 100 ml @ 400 mls/hr Q8H IVPB 11/13/17 09:00 11/29/17 16:59 11/17/17 09:03 Morphine Sulfate (Morphine Sulfate) 4 mg Q1H PRN IVP for discomfort or RR>20 11/13/17 06:00 11/19/17 15:54 Gutierrez Sifuentes MD Nov 17, 2017 10:39
--- NOTE | 2017-11-17 11:16 | Nephrology Progress Note ---
Assessment/Plan Assessment 1. Aspiration pneumonia. 2. hypernatremia 3. hypokalemia 4. Shock liver. . Plan plan free water check mg9 replace k monitoring renal function and urine out put avoid NSAID Subjective Constitutional: Reports: no symptoms HEENT: Reports: no symptoms Genitourinary: Reports: no symptoms Neurologic/Psychiatric: Reports: no symptoms Subjective no changes in ms Objective Objective Last 24 Hour Vital Signs Date Time Temp Pulse Resp B/P (MAP) Pulse Ox O2 Delivery O2 Flow Rate FiO2 11/17/17 09:00 Nasal Cannula 2.0 Nasal Cannula 2.0 11/17/17 08:00 98.3 108 18 141/82 (101) 100 98.3 11/17/17 04:00 98.9 107 20 139/80 (99) 100 98.9 11/17/17 00:00 97.9 98 20 116/73 (87) 100 97.9 11/16/17 20:56 Nasal Cannula 2.0 Nasal Cannula 2.0 11/16/17 20:00 98.9 109 20 127/80 (96) 100 98.9 11/16/17 20:00 100 Nasal Cannula 2.0 28 11/16/17 19:30 Nasal Cannula 2.0 28 11/16/17 16:55 98.2 93 20 135/76 (95) 97 98.2 11/16/17 12:00 97.7 93 22 103/61 (75) 100 97.7 Intake and Output 11/16/17 11/17/17 19:00 07:00 Intake Total 1205 ml 790 ml Output Total 207 ml 828 ml Balance 998 ml -38 ml Free Water 150 ml IV Total 800 ml 100 ml Tube Feeding 405 ml 540 ml Output Urine Total 207 ml 825 ml Stool Total 3 ml Laboratory Tests 11/17/17 05:25: White Blood Count 12.3H, Red Blood Count 3.79L, Hemoglobin 11.1L, Hematocrit 35.0L, Mean Corpuscular Volume 93, Mean Corpuscular Hemoglobin 29.4, Mean Corpuscular Hemoglobin Concent 31.8L, Red Cell Distribution Width 13.9, Platelet Count 530H, Mean Platelet Volume 5.6L, Neutrophils (%) (Auto) 73.6, Lymphocytes (%) (Auto) 16.1L, Monocytes (%) (Auto) 8.0, Eosinophils (%) (Auto) 0.9, Basophils (%) (Auto) 1.4, Sodium Level 141, Potassium Level 4.1, Chloride Level 107, Carbon Dioxide Level 26, Anion Gap 8, Blood Urea Nitrogen 28H, Creatinine 0.8, Estimat Glomerular Filtration Rate > 60, Glucose Level 95, Calcium Level 8.8 Height (Feet): 5 Height (Inches): 2.00 Weight (Pounds): 110 Objective HEAD AND NECK: No JVP. No LAD. No thyromegaly. Extraocular movement intact. Pupils are reactive to light and accommodation. LUNGS: Decreased breathing sounds on the right. Apparently, the patient received IJ placement this morning and later on patient developed a pneumothorax on the right side. ABDOMEN: Soft, nontender, and nondistended. EXTREMITIES: No edema. No clubbing. No cyanosis. The patient has Stefani Shabazz MD Nov 17, 2017 11:16
[2017-11-17 12:00] VITALS: BP 130/69
--- NOTE | 2017-11-17 12:07 | General Progress Note ---
Assessment/Plan Problem List: (1) Renal insufficiency ICD Codes: N28.9 - Disorder of kidney and ureter, unspecified SNOMED: 712263991, 135803905 (2) UTI (urinary tract infection) ICD Codes: N39.0 - Urinary tract infection, site not specified SNOMED: 76708861 (3) Seizure ICD Codes: R56.9 - Unspecified convulsions SNOMED: 70462888 (4) HTN (hypertension) ICD Codes: I10 - Essential (primary) hypertension SNOMED: 65899589 (5) Diabetes ICD Codes: E11.9 - Type 2 diabetes mellitus without complications SNOMED: 88243568 Status: unchanged Assessment/Plan vent abx detox neph f/u wean vent cbc bmp am hospice eval if family wishes Subjective Constitutional: Reports: weakness Allergies: Coded Allergies: ASPIRIN (Verified Allergy, Unknown, 10/30/17) PENICILLINS (Verified Allergy, Unknown, 10/30/17) All Systems: reviewed and negative except above Subjective o2 nc ng lethargic Objective Last 24 Hour Vital Signs Date Time Temp Pulse Resp B/P (MAP) Pulse Ox O2 Delivery O2 Flow Rate FiO2 11/17/17 09:00 Nasal Cannula 2.0 Nasal Cannula 2.0 11/17/17 08:00 98.3 108 18 141/82 (101) 100 98.3 11/17/17 04:00 98.9 107 20 139/80 (99) 100 98.9 11/17/17 00:00 97.9 98 20 116/73 (87) 100 97.9 11/16/17 20:56 Nasal Cannula 2.0 Nasal Cannula 2.0 11/16/17 20:00 98.9 109 20 127/80 (96) 100 98.9 11/16/17 20:00 100 Nasal Cannula 2.0 28 11/16/17 19:30 Nasal Cannula 2.0 28 11/16/17 16:55 98.2 93 20 135/76 (95) 97 98.2 Intake and Output 11/16/17 11/17/17 19:00 07:00 Intake Total 1205 ml 790 ml Output Total 207 ml 828 ml Balance 998 ml -38 ml Free Water 150 ml IV Total 800 ml 100 ml Tube Feeding 405 ml 540 ml Output Urine Total 207 ml 825 ml Stool Total 3 ml Laboratory Tests 11/17/17 05:25: White Blood Count 12.3H, Red Blood Count 3.79L, Hemoglobin 11.1L, Hematocrit 35.0L, Mean Corpuscular Volume 93, Mean Corpuscular Hemoglobin 29.4, Mean Corpuscular Hemoglobin Concent 31.8L, Red Cell Distribution Width 13.9, Platelet Count 530H, Mean Platelet Volume 5.6L, Neutrophils (%) (Auto) 73.6, Lymphocytes (%) (Auto) 16.1L, Monocytes (%) (Auto) 8.0, Eosinophils (%) (Auto) 0.9, Basophils (%) (Auto) 1.4, Sodium Level 141, Potassium Level 4.1, Chloride Level 107, Carbon Dioxide Level 26, Anion Gap 8, Blood Urea Nitrogen 28H, Creatinine 0.8, Estimat Glomerular Filtration Rate > 60, Glucose Level 95, Calcium Level 8.8 Height (Feet): 5 Height (Inches): 2.00 Weight (Pounds): 110 General Appearance: lethargic EENT: normal ENT inspection Neck: normal alignment Cardiovascular: normal peripheral pulses, normal rate, regular rhythm Respiratory/Chest: chest wall non-tender, lungs clear, normal breath sounds Abdomen: normal bowel sounds, non tender, soft Extremities: normal inspection Edema: no edema noted Arm (L), no edema noted Arm (R), no edema noted Leg (L), no edema noted Leg (R), no edema noted Pedal (L), no edema noted Pedal (R), no edema noted Generalized Neurologic: motor weakness Skin: normal pigmentation, warm/dry Josias Skinner DO Nov 17, 2017 12:07
[2017-11-17] MEDS ORDERED: MORPHINE S10 MG/5 ML ORAL (13:47)
--- NOTE | 2017-11-17 13:52 | Pulmonology Progress Note ---
Assessment/Plan Problems: (1) Respiratory arrest (2) HTN (hypertension) (3) Seizure (4) SLE (systemic lupus erythematosus) Assessment/Plan vegetative state pt's sons don't want any pt's two sons don't want artificial feeding symptomatic treatment Subjective ROS Limited/Unobtainable: Yes Allergies: Coded Allergies: ASPIRIN (Verified Allergy, Unknown, 10/30/17) PENICILLINS (Verified Allergy, Unknown, 10/30/17) Objective Last 24 Hour Vital Signs Date Time Temp Pulse Resp B/P (MAP) Pulse Ox O2 Delivery O2 Flow Rate FiO2 11/17/17 12:00 99.0 105 20 130/69 (89) 99 99.0 11/17/17 09:00 Nasal Cannula 2.0 Nasal Cannula 2.0 11/17/17 08:00 98.3 108 18 141/82 (101) 100 98.3 11/17/17 04:00 98.9 107 20 139/80 (99) 100 98.9 11/17/17 00:00 97.9 98 20 116/73 (87) 100 97.9 11/16/17 20:56 Nasal Cannula 2.0 Nasal Cannula 2.0 11/16/17 20:00 98.9 109 20 127/80 (96) 100 98.9 11/16/17 20:00 100 Nasal Cannula 2.0 28 11/16/17 19:30 Nasal Cannula 2.0 28 11/16/17 16:55 98.2 93 20 135/76 (95) 97 98.2 Intake and Output 11/16/17 11/17/17 19:00 07:00 Intake Total 1205 ml 790 ml Output Total 207 ml 828 ml Balance 998 ml -38 ml Free Water 150 ml IV Total 800 ml 100 ml Tube Feeding 405 ml 540 ml Output Urine Total 207 ml 825 ml Stool Total 3 ml General Appearance: cachetic HEENT: normocephalic, anicteric Respiratory/Chest: lungs clear, no respiratory distress Cardiovascular: normal peripheral pulses, normal rate Abdomen: normal bowel sounds, soft, non tender Genitourinary: normal external genitalia Extremities: no cyanosis Skin: no rash Laboratory Tests 11/17/17 05:25: White Blood Count 12.3H, Red Blood Count 3.79L, Hemoglobin 11.1L, Hematocrit 35.0L, Mean Corpuscular Volume 93, Mean Corpuscular Hemoglobin 29.4, Mean Corpuscular Hemoglobin Concent 31.8L, Red Cell Distribution Width 13.9, Platelet Count 530H, Mean Platelet Volume 5.6L, Neutrophils (%) (Auto) 73.6, Lymphocytes (%) (Auto) 16.1L, Monocytes (%) (Auto) 8.0, Eosinophils (%) (Auto) 0.9, Basophils (%) (Auto) 1.4, Sodium Level 141, Potassium Level 4.1, Chloride Level 107, Carbon Dioxide Level 26, Anion Gap 8, Blood Urea Nitrogen 28H, Creatinine 0.8, Estimat Glomerular Filtration Rate > 60, Glucose Level 95, Calcium Level 8.8 Current Medications Medications (Trade) Dose Ordered Sig/Yung Route PRN Reason Start Time Stop Time Status Last Admin Dose Admin Acetaminophen (Tylenol) 650 mg Q6H PRN NG Mild Pain/Temp > 100.5 11/13/17 05:36 12/03/17 05:35 Chlorhexidine Gluconate (Sunita-Hex 2%) 1 applic DAILY@1999 TOPIC 11/13/17 20:00 11/29/17 19:59 11/16/17 20:09 Clonidine HCl (Catapres Tab) 0.1 mg Q4H PRN ORAL for SBP >160 11/13/17 09:00 12/01/17 12:59 Levetiracetam 100 ml @ 400 mls/hr Q8H IVPB 11/13/17 09:00 11/29/17 16:59 11/17/17 09:03 Morphine Sulfate (Morphine Sulfate) 4 mg Q1H PRN IVP for discomfort or RR>20 11/13/17 06:00 11/19/17 15:54 Evan Purcell MD Nov 17, 2017 13:52
--- NOTE | 2017-11-17 13:55 | Pulmonology Progress Note ---
Assessment/Plan Problems: (1) Respiratory arrest (2) HTN (hypertension) (3) Seizure (4) SLE (systemic lupus erythematosus) Assessment/Plan vegetative state pt's sons don't want any pt's two sons don't want artificial feeding symptomatic treatment Subjective ROS Limited/Unobtainable: No Constitutional: Reports: no symptoms HEENT: Repors: no symptoms Respiratory: Reports: no symptoms Allergies: Coded Allergies: ASPIRIN (Verified Allergy, Unknown, 10/30/17) PENICILLINS (Verified Allergy, Unknown, 10/30/17) Objective Last 24 Hour Vital Signs Date Time Temp Pulse Resp B/P (MAP) Pulse Ox O2 Delivery O2 Flow Rate FiO2 11/17/17 12:00 99.0 105 20 130/69 (89) 99 99.0 11/17/17 09:00 Nasal Cannula 2.0 Nasal Cannula 2.0 11/17/17 08:00 98.3 108 18 141/82 (101) 100 98.3 11/17/17 04:00 98.9 107 20 139/80 (99) 100 98.9 11/17/17 00:00 97.9 98 20 116/73 (87) 100 97.9 11/16/17 20:56 Nasal Cannula 2.0 Nasal Cannula 2.0 11/16/17 20:00 98.9 109 20 127/80 (96) 100 98.9 11/16/17 20:00 100 Nasal Cannula 2.0 28 11/16/17 19:30 Nasal Cannula 2.0 28 11/16/17 16:55 98.2 93 20 135/76 (95) 97 98.2 Intake and Output 11/16/17 11/17/17 19:00 07:00 Intake Total 1205 ml 790 ml Output Total 207 ml 828 ml Balance 998 ml -38 ml Free Water 150 ml IV Total 800 ml 100 ml Tube Feeding 405 ml 540 ml Output Urine Total 207 ml 825 ml Stool Total 3 ml General Appearance: cachetic HEENT: normocephalic, atraumatic Respiratory/Chest: chest wall non-tender, normal breath sounds Breasts: no masses Cardiovascular: normal rate Abdomen: normal bowel sounds Genitourinary: normal external genitalia Skin: no rash Laboratory Tests 11/17/17 05:25: White Blood Count 12.3H, Red Blood Count 3.79L, Hemoglobin 11.1L, Hematocrit 35.0L, Mean Corpuscular Volume 93, Mean Corpuscular Hemoglobin 29.4, Mean Corpuscular Hemoglobin Concent 31.8L, Red Cell Distribution Width 13.9, Platelet Count 530H, Mean Platelet Volume 5.6L, Neutrophils (%) (Auto) 73.6, Lymphocytes (%) (Auto) 16.1L, Monocytes (%) (Auto) 8.0, Eosinophils (%) (Auto) 0.9, Basophils (%) (Auto) 1.4, Sodium Level 141, Potassium Level 4.1, Chloride Level 107, Carbon Dioxide Level 26, Anion Gap 8, Blood Urea Nitrogen 28H, Creatinine 0.8, Estimat Glomerular Filtration Rate > 60, Glucose Level 95, Calcium Level 8.8 Current Medications Medications (Trade) Dose Ordered Sig/Yung Route PRN Reason Start Time Stop Time Status Last Admin Dose Admin Acetaminophen (Tylenol) 650 mg Q6H PRN NG Mild Pain/Temp > 100.5 11/13/17 05:36 12/03/17 05:35 Chlorhexidine Gluconate (Sunita-Hex 2%) 1 applic DAILY@2000 TOPIC 11/13/17 20:00 11/29/17 19:59 11/16/17 20:09 Clonidine HCl (Catapres Tab) 0.1 mg Q4H PRN ORAL for SBP >160 11/13/17 09:00 12/01/17 12:59 Levetiracetam 100 ml @ 400 mls/hr Q8H IVPB 11/13/17 09:00 11/29/17 16:59 11/17/17 09:03 Morphine Sulfate (Morphine Sulfate) 4 mg Q1H PRN IVP for discomfort or RR>20 11/13/17 06:00 11/19/17 15:54 Evan Purcell MD Nov 17, 2017 13:55
[2017-11-17] MEDS ORDERED: NS 275ml ONE (14:56)
--- NOTE | 2017-11-17 23:40 | Cardiology Progress Note ---
Assessment/Plan Assessment/Plan 1. Sinus tachycardia, resolved, possibly due to cocaine intoxication, continue diltiazem, echo reveals normal left ventricular systolic function with LVEF of approximately 55%. 2. Acute hypoxemic respiratory failure due to aspiration PNA. 3. HTN, well controlled, continue Diltiazem. 4. Mild pulmonary hypertension with right ventricular systolic pressure measured at 42 mmHg. 5. Small right pneumothorax, resolved. 6. Chronic metabolic encephalopathy. 7. Comfort care. Subjective Subjective The family refused artificial feedings. No cardiac events. Objective Last 24 Hour Vital Signs Date Time Temp Pulse Resp B/P (MAP) Pulse Ox O2 Delivery O2 Flow Rate FiO2 11/17/17 12:00 99.0 105 20 130/69 (89) 99 99.0 11/17/17 09:00 Nasal Cannula 2.0 Nasal Cannula 2.0 11/17/17 08:00 98.3 108 18 141/82 (101) 100 98.3 11/17/17 04:00 98.9 107 20 139/80 (99) 100 98.9 11/17/17 00:00 97.9 98 20 116/73 (87) 100 97.9 Intake and Output 11/16/17 11/17/17 19:00 07:00 Intake Total 1205 ml 790 ml Output Total 207 ml 828 ml Balance 998 ml -38 ml Free Water 150 ml IV Total 800 ml 100 ml Tube Feeding 405 ml 540 ml Output Urine Total 207 ml 825 ml Stool Total 3 ml 2D Echo: EF 60-65%, mild LVH, Mild AR, normal LVDD, RVSP 42 mmHg Laboratory Tests Test 11/17/17 05:25 White Blood Count 12.3 K/UL (4.8-10.8) H Red Blood Count 3.79 M/UL (4.20-5.40) L Hemoglobin 11.1 G/DL (12.0-16.0) L Hematocrit 35.0 % (37.0-47.0) L Mean Corpuscular Volume 93 FL (80-99) Mean Corpuscular Hemoglobin 29.4 PG (27.0-31.0) Mean Corpuscular Hemoglobin Concent 31.8 G/DL (32.0-36.0) L Red Cell Distribution Width 13.9 % (11.6-14.8) Platelet Count 530 K/UL (150-450) H Mean Platelet Volume 5.6 FL (6.5-10.1) L Neutrophils (%) (Auto) 73.6 % (45.0-75.0) Lymphocytes (%) (Auto) 16.1 % (20.0-45.0) L Monocytes (%) (Auto) 8.0 % (1.0-10.0) Eosinophils (%) (Auto) 0.9 % (0.0-3.0) Basophils (%) (Auto) 1.4 % (0.0-2.0) Sodium Level 141 MMOL/L (136-145) Potassium Level 4.1 MMOL/L (3.5-5.1) Chloride Level 107 MMOL/L (98-107) Carbon Dioxide Level 26 MMOL/L (21-32) Anion Gap 8 mmol/L (5-15) Blood Urea Nitrogen 28 mg/dL (7-18) H Creatinine 0.8 MG/DL (0.55-1.30) Estimat Glomerular Filtration Rate > 60 mL/min (>60) Glucose Level 95 MG/DL (74-106) Calcium Level 8.8 MG/DL (8.5-10.1) Objective HEENT: Atraumatic and normocephalic. Anicteric. Pupils are equal, round, and reactive to light and accommodation.NG tube in place. NECK: JVP less than 5 cm, no carotid bruit. CARDIOVASCULAR: Normal S1, S2, regular rate rhythm, no murmurs, gallops, or rubs. LUNGS: Diminished breath sounds in both bases. ABDOMEN: Soft, nontender, and nondistended. Positive bowel sounds. EXTREMITIES: No evidence of edema, clubbing, or cyanosis. Geovany Brown MD Nov 17, 2017 23:40
--- NOTE | 2017-11-18 14:08 | Discharge Summary ---
Discharge Summary Discharge Summary _ DATE OF ADMISSION: 10/30/2017 DATE OF DISCHARGE: 10/28/2017 CONSULTANTS: Dr. Geovany Garcia [facility] COURSE: Patient is a 57-year-old female, who presented to ER via EMS after she was found slumped over in the bathroom with food coming out from her mouth. Paramedics were called, patient appeared to be not breathing and was bradycardic. On arrival to ED, patient was in respiratory distress, however, had difficulty intubation. She was also noted to have seizure activity while en route to the hospital. Workup showed elevated creatinine levels. LFTs were elevated. Urinalysis showed 20-30 RBC, 5-10 WBC, 1+ leukocyte esterase negative nitrite 2+ protein, 4+ glucose. Urine toxicology positive for cocaine. Head CT was negative for acute intracranial abnormality. She was then admitted to ICU for acute respiratory failure status post respiratory arrest, status epilepticus, possible aspiration pneumonia and transaminitis. Patient had poor IV access. Patient with intractable seizures and needed IV line. A right subclavian central venous catheter was inserted. Postprocedure chest x-ray demonstrated right sided pneumothorax. Right tube thoravent was inserted without complication. Tube placed to pleuravac suction. Chest x-ray obtained and pneumothorax improved. She underwent neuro evaluation. She was started on Dilantin and Keppra. Liver and kidney functions were monitored as Dilantin can affect liver function. Abdominal ultrasound showed cholelithiasis with equivocal slight hepatic surface nodularity. Increased renal echogenicity. Negative for hydronephrosis. She was started empirically on ceftriaxone and Flagyl for aspiration pneumonia and UTI. She had sinus tachycardia, possibly due to cocaine intoxication or pneumothorax. Patient had an echocardiogram done EF 60% with RVSP of 35. She was eventually started on Solu-Cortef 50 mg. Blood glucose was monitored. Subsequent chest x-ray had been stable. On 11/02/17, chest tube was placed on water seal. Chest x-ray stable. Thoravent was eventually discontinued the following day. She continued to be comatose and responds only to deep painful stimuli. EEG done on 10/31/2017 revealed severe encephalopathy and bilateral frontal epileptogenic foci with interictal discharges. Sputum culture showed predominantly stenotrophomonas. He was continued on antibiotics. She eventually developed new fevers, ceftriaxone was discontinued and patient was eventually started on levofloxacin. Solu-Cortef was tapered. She was eventually weaned off ventilator and was extubated on 11/13/2017. Family meeting was conducted. Patient continued to be on vegetative state however family refused artificial feeding. Patient was eventually discharged to [facility] with hospice. FINAL DIAGNOSES: Sepsis probable aspiration pneumonia Acute hypoxemic respiratory failure due to aspiration pneumonia status post intubation and extubation Status post respiratory arrest Acute on chronic metabolic encephalopathy Acute renal failure due to to tubular necrosis due to unstable hemodynamics Hypernatremia Hypokalemia Elevated liver transaminases due to shock liver Seizures due to hypoxic/ischemic cerebral insult and cocaine intoxication Diabetes mellitus Sinus tachycardia, resolved possibly due to cocaine intoxication Hypertension Mild pulmonary hypertension Small right pneumothorax resolved Arthritis Drug abuse, positive for cocaine Chronic pain Anemia SLE Comfort care/palliative care/hospice care DISPOSITION: Patient was discharged to [facility] [place] with hospice. DISCHARGE MEDICATIONS: Refer to Discharge Medication List. I have been assigned to dictate discharge summary on this account, and I was not involved in the patient's management. Toshia Sumner NP Nov 18, 2017 14:08
== END 2017-11-17 14:57 | DRG 720 ==
LOC: EDBD 23:59 → EDBEDREQ 10-30 00:56 → EMR 10-30 01:55 → ICU 10-30 02:22 → EDBEDREQ 10-30 05:39 → 4E 11-13 05:25
PROC: 0BH17EZ Insertion of Endotracheal Airway into Trachea, Via Natural or Artificial Opening (ICD-10-PCS; principal; 2017-10-30)
PROC: 5A1955Z Respiratory Ventilation, Greater than 96 Consecutive Hours (ICD-10-PCS; 2017-10-30)
PROC: 05H533Z Insertion of Infusion Device into Right Subclavian Vein, Percutaneous Approach (ICD-10-PCS; 2017-10-30)
PROC: 0W9930Z Drainage of Right Pleural Cavity with Drainage Device, Percutaneous Approach (ICD-10-PCS; 2017-10-30)
DX: A41.9 Sepsis, unspecified organism (principal); J96.01 Acute respiratory failure with hypoxia; N17.0 Acute kidney failure with tubular necrosis; K72.00 Acute and subacute hepatic failure without coma; J69.0 Pneumonitis due to inhalation of food and vomit; G93.41 Metabolic encephalopathy; T17.420A Food in trachea causing asphyxiation, initial encounter; R40.3 Persistent vegetative state; J95.811 Postprocedural pneumothorax; X58.XXXA Exposure to other specified factors, initial encounter; Y92.002 Bathroom of unspecified non-institutional (private) residence as the place of occurrence of the external cause; R09.2 Respiratory arrest; F14.129 Cocaine abuse with intoxication, unspecified; G40.909 Epilepsy, unspecified, not intractable, without status epilepticus; N39.0 Urinary tract infection, site not specified; E46 Unspecified protein-calorie malnutrition; I12.9 Hypertensive chronic kidney disease with stage 1 through stage 4 chronic kidney disease, or unspecified chronic kidney disease; E11.22 Type 2 diabetes mellitus with diabetic chronic kidney disease; N18.9 Chronic kidney disease, unspecified; R79.89 Other specified abnormal findings of blood chemistry; G89.29 Other chronic pain; M19.90 Unspecified osteoarthritis, unspecified site; R00.1 Bradycardia, unspecified; R00.0 Tachycardia, unspecified; Z51.5 Encounter for palliative care; D64.9 Anemia, unspecified; E11.649 Type 2 diabetes mellitus with hypoglycemia without coma; R74.0 Nonspecific elevation of levels of transaminase and lactic acid dehydrogenase [LDH]; E87.0 Hyperosmolality and hypernatremia; E87.6 Hypokalemia; M32.9 Systemic lupus erythematosus, unspecified; I27.20 Pulmonary hypertension, unspecified
CPT/HCPCS: 36415; 36600; 70450; 71045; 76700; 80048; 80053; 80076; 80185; 80307; 81001; 81003; 82043; 82044; 82140; 82270; 82570; 82803; 82962; 83540; 83550; 83605; 83615; 83735; 83880; 84100; 84132; 84300; 84484; 85007; 85025; 85610; 85730; 86705; 86709; 86803; 87040; 87070; 87081; 87086; 87181; 87205; 87324; 87340; 89050; 93005; 93306; 93880; 93970; 94002; 94003; 94664; 94760; 95819; 99291; J1165; J1815; J8499